=== PATIENT | male | born 1945 | race Caucasian/White ===

== ENCOUNTER 2023-10-15 10:19 | Outpatient (OUT) | payer MEDICARE, SELFPAY ==
--- NOTE | 2023-10-15 11:33 | PM.PRESUREVA ---
History of Present Illness History of Present Illness Chief complaint: ureteral stone Narrative: Patient presents for preadmission testing. Patient states he had a follow-up for kidney stones with Dr. Dc on October 09, and then three days later he had excruciating left flank pain and was treated in the emergency department and found to have a left ureteral stone. The patient states he still having flank pain but it is controlled with pain medication. He denies nausea, vomiting, fever, or any other complaints. Review of Systems ROS Narrative REVIEW OF SYSTEMS: Negative except as stated in HPI, ten or more systems reviewed. Constitutional: No fever , chills, weakness ENT: No sore throat or epistaxis Cardiovascular: No edema, chest pain, palpitations, or activity intolerance Respiratory: No shortness of breath, cough, or wheezing Musculoskeletal: No joint pain or swelling Gastrointestinal: No abdominal pain, constipation, diarrhea, or vomiting Genitourinary: No dysuria or hematuria Neurological: No numbness, tingling, weakness, or headache Psychiatric: No mood changes PFSH [facility] Medical History (Updated 10/15/23 @ 11:21 by Nirmala Robison NP) Peptic ulcer ?K27.9 - Peptic ulcer, site unspecified, unspecified as acute or chronic, without hemorrhage or perforation (ICD-10) 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 - Papillomavirus as the cause of diseases classified elsewhere (ICD-10) Skin cancer ?C44.90 - Unspecified malignant neoplasm of skin, unspecified (ICD-10) Essential tremor ?G25.0 - Essential tremor (ICD-10) Parkinson's disease not affecting current episode of care ?G20.A1 - Parkinson's disease without dyskinesia, without mention of fluctuations (ICD-10) 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 - Male erectile dysfunction, unspecified (ICD-10) History of nephrolithiasis ?Z87.442 - Personal history of urinary calculi (ICD-10) Hypogonadism Hyperlipidemia ?E78.5 - Hyperlipidemia, unspecified (ICD-10) Urinary tract infection ?N39.0 - Urinary tract infection, site not specified (ICD-10) Hematuria ?R31.9 - Hematuria, unspecified (ICD-10) Diverticular disease ?K57.90 - Diverticulosis of intestine, part unspecified, without perforation or abscess without bleeding (ICD-10) Benign prostatic hyperplasia ?N40.0 - Benign prostatic hyperplasia without lower urinary tract symptoms (ICD-10) Abdominal pain ?R10.9 - Unspecified abdominal pain (ICD-10) Ureteral stone ?N20.1 - Calculus of ureter (ICD-10) Surgical History (Updated 10/15/23 @ 11:21 by Nirmala Robison NP) History of throat surgery ?Z98.890 - Other specified postprocedural states (ICD-10) History of surgical removal of skin lesion ?Z98.890 - Other specified postprocedural states (ICD-10) ?Z87.2 - Personal history of diseases of the skin and subcutaneous tissue (ICD-10) History of nasal septoplasty ?Z98.890 - Other specified postprocedural states (ICD-10) History of colonoscopy ?Z98.890 - Other specified postprocedural states (ICD-10) History of esophagogastroduodenoscopy (EGD) ?Z98.890 - Other specified postprocedural states (ICD-10) History of arthroplasty of knee ?Z96.659 - Presence of unspecified artificial knee joint (ICD-10) History of arthroplasty of knee ?Z96.659 - Presence of unspecified artificial knee joint (ICD-10) History of tonsillectomy and adenoidectomy ?Z90.89 - Acquired absence of other organs (ICD-10) H/O wisdom tooth extraction ?K08.409 - Partial loss of teeth, unspecified cause, unspecified class (ICD-10) Family History (Updated 10/15/23 @ 11:21 by Nirmala Robison NP) Other Family history of cancer Family history of coronary artery disease Heart disease Meds Home Medications and Allergies Home Medications Medication Instructions Recorded Confirmed Type Zetia 20 mg PO DAILY 10/14/23 10/14/23 History aspirin 81 mg capsule 81 mg PO DAILY 10/14/23 10/14/23 History carbidopa 10 mg-levodopa 100 mg 1 tab PO DAILY 10/14/23 10/15/23 History tablet (Sinemet) eszopiclone 3 mg tablet (Lunesta) 3 mg PO QPM 10/14/23 10/15/23 History glucosamine sulfate 500 mg tablet 500 mg PO DAILY 10/14/23 10/14/23 History (Glucosamine) tamsulosin 0.4 mg capsule (Flomax) 0.4 mg PO BID 10/14/23 10/15/23 History alfuzosin 10 mg tablet,extended 10 mg PO DAILY 10/15/23 10/15/23 History release 24 hr atorvastatin 20 mg tablet 20 mg PO DAILY 10/15/23 10/15/23 History gabapentin 300 mg capsule 300 mg PO DAILY 10/15/23 10/15/23 History hydrocodone 5 mg-acetaminophen 325 1 tab PO [id number] PRN pain 10/15/23 10/15/23 History mg tablet propranolol 60 mg tablet 60 mg PO DAILY 10/15/23 10/15/23 History sildenafil 100 mg tablet 100 mg PO Q24H PRN sexual activity 10/15/23 10/15/23 History testosterone cypionate 200 mg/mL 200 mg IM [id number] 10/15/23 10/15/23 History intramuscular oil Allergies Allergy/AdvReac Type Severity Reaction Status Date / Time shellfish derived Allergy Vomiting Verified 10/15/23 11:09 SHELLFISH Allergy Intermediate Uncoded 10/14/23 16:51 Exam Narrative Exam Narrative: Constitutional: Awake, alert, comfortable, well-appearing, nontoxic, interactive, vital signs as charted Head: Normocephalic, atraumatic Neck: Supple, normal appearance, normal range of motion, no meningeal signs, no lymphadenopathy Respiratory: No respiratory distress, breath sounds clear Cardiovascular: Regular rate and rhythm, strong and regular heart tones Abdomen: Nontender, normal bowel sounds, soft, no CVA tenderness Musculoskeletal: Normal gait, no swelling or edema Skin: No rashes or induration, no lesions, only visible skin inspected Neuro: No neurological deficits, normal sensation Psychiatric: Oriented ?3, normal affect Assessment and Plan Assessment and Plan (1) Ureteral stone: Plan Cystoscopy, left retrograde, left ureteroscopy, holmium laser, possible left stent placement scheduled with Dr. Dc 10/17/2023.
[2023-10-15 12:58] LABS: INR 1.03; Partial Thromboplastin Time 33.3 sec (22.3-36.2); Prothrombin Time 10.9 sec (9.0-11.6)
== END 2023-10-15 10:20 | disposition home or self-care (01) ==
LOC: PST 10:23
PROVIDERS: Visit Provider Urology
DX: Z01.812 Encounter for preprocedural laboratory examination (principal); Z01.818 Encounter for other preprocedural examination; N20.1 Calculus of ureter
CPT/HCPCS: 85610; 85730; G0463

== ENCOUNTER 2023-10-17 08:05 | Day surgery (SDC) | payer MEDICARE, SELFPAY ==
[2023-10-15 11:29] VITALS: BP 123/78; PULSE 83; RESP 14; TEMP 36.3; O2SAT 94; BMI 22.7
[2023-10-17] VITALS (11 sets, daily range): BP systolic 109–151; BP diastolic 75–82; PULSE 61–89; RESP 12–20; TEMP 36–36.3; O2SAT 93–97; BMI 22.5
--- NOTE | 2023-10-17 | FL_ITS ---
[address] [address] Patient Name: DANIELE PERRY MRN: [id number] date: 1945 Sex: M Assigned Patient Location: [facility] Current Patient Location: Accession/Order Number: [id number] Exam Date: 10/17/2023 09:00 Report Date: 10/18/2023 06:45 At the request of: JULIO FORBES Procedure: FL fluoroscopy <1hr NON-READ EXAM: FL fluoroscopy <1hr NON-READ HISTORY: TECHNIQUE: FINDINGS: Please see Operative Report. Electronically authenticated by: RADIOLOGIST NO Date: 10/18/2023 06:45
--- OUTSIDE RECORDS SUMMARY | 2023-10-17 08:09 | XMS_ITS | CCD ---
Author Name Unknown Address [address] [facility] [address] [place] [id number] Organization [facility] Care Team Providers Care Signal Maintainer Helper Name Role Phone DEQUAN BIRGIT MARINA Primary Care UnavailCHASIDY Givens Attending Unavaila JULIO Marsh Admitting Unavailable ANDREI, JULIO Attending Unavailable MISC, Primary Care Unavailable FORBES, JULIO Consulting Unavailable JULIAN CISNEROS Consulting Unavailable FORBES, JULIO Admitting Unavailable FORBES, JULIO Attending Unavailable ANDREI, JULIO Consulting Unavailable NELA DOVE V Consulting Unavailable FRANCISCA MAXWELL Consulting Unavailable TED, NIURKA Consulting Unavailable FORBES, JULIO Admitting Unavailable FORBES, JULIO Attending Unavailable FORBES, JULIO Consulting Unavailable ELIZABETH PERALES Consulting Unavailable TED, NIURKA Consulting Unavailable TRINI ANAND Consulting Unavailable ANDREI, JULIO Admitting Unavailable ANDREI, JULIO Attending Unavailable Trino Crain Unavailable Nela Alegria Unavailable AMELIA BATISTA Primary Care Physician LUC Batistashana Primary Care Provider MD Bronson Imbrigido Attending Provider [phone] Asaad, Imad Unavailable Amelia Batista Primary Care Unavailable Asaad, Imad Attending Unavailable Asaad, Imad Admitting Unavailable Asaad, Imad Attending Unavailable Asaad, Imad Admitting Unavailable Amelia Batista Primary Care Unavailable Julio FORBES R Attending Unavailable Julio FORBES R Attending Unavailable Julio FORBES R Attending Unavailable Julio Forbes R Consulting Unavailable Jalen King Admitting Unavailab Jalen Cardenas Attending Unavailab Amelia Méndez Primary Care Unavailable Mohan Hogan Admitting Unavailable Mohan Hogan Attending Unavailable Eran [facility] Primary Care Unavailable ForbesJulio Attending Unavailable [facility] Primary Care Unavailable Julio Forbes Admitting Unavailable Mirian Zazueta Admitting Unavailable Hazard Waste HandlerMirian Attending Unavailable [facility], [facility] Primary Care Unavailable ForbesJulio Attending Unavailable [facility], [facility] Primary Care Unavailable Julio Forbes Admitting Unavailable Allergies Allergy Classification Reported Allergen(s) Allergy Type Date of Onset Reaction(s) Facility (5 sources) Shellfish; Translations: [shellfish] Drug allergy (disorder) Unknown (qualifier value) [facility] (3 sources) Shellfish; Translations: [shellfish] Drug allergy Unknown (qualifier value) [facility] (2 sources) clams Allergy to substance 0 Vomiting [facility] (2 sources) oysters Allergy to substance 0 Vomiting [facility] Medications Current Medications Medication Drug Class(es) Dates Sig (Normalized) Sig (Original) acetaminophen 325 mg / oxyCODONE hydrochloride 5 mg oral tablet (7 sources) Opioid Agonist oxyCODONE-Acetam i nophen 5-325 MG (Schedule II Drug) take 1 tablet by mouth every 4 hours if needed for moderate pain for up to 7 days Oral for 7 Active 24 hr alfuzosin hydrochloride 10 mg extended release oral tablet (4 sources) alpha-Adrenergic Eliane Start: 03-28-2022 take 1 tablet by mouth once daily alfuzosin 10 mg ER Tab 10 mg = 1 tab(s), Oral, Daily, # 90 tab(s), Refills(s) 3, Pharmacy: [facility] 188, cm, 03/28/22 11:06:00 EDT, Height/Length Dosing, 85, kg, 03/28/22 11:06:00 EDT, Weight Dosing Start Date: 03/28/22 Status: Ordered amoxicillin 500 mg oral capsule (7 sources) Penicillin-class Antibacterial take 4 capsules by mouth every hour Amoxicillin 500 MG take 4 capsules by mouth 1 hour prior to dental appointment Oral for 6 Active Aspirin (6 sources) Platelet Aggregation Inhibitor, Nonsteroidal Anti-inflammatory Drug Start: 02-02-2020 aspirin 81 mg, Refills(s) 0 Start Date: 02/02/20 Status: Ordered Start: 01-08-2018 take 1 tablet by marco antonio th once daily Aspirin (Aspir-81) 81 mg Tablet,Delayed Release (Dr/Ec) Active 81 MG PO Daily January 08, 2018 12:00am Lipitor (6 sources) HMG-CoA Reductase Inhibitor Start: 02-02-2020 Lipitor Oral, Daily, Refills(s) 0 Start Date: 02/02/20 Status: Ordered Start: 01-08-2018 take 20 mg by mouth once daily Atorvastatin Active 20 MG PO Daily January 08, 2018 12:00am carbidopa 10 mg / levodopa 100 mg oral tablet (4 sources) Aromatic Amino Acid Decarboxylation Inhibitor, Aromatic Amino Acid Start: 02-02-2020 take 1 tablet by mouth four times daily Sinemet 10 mg-100 mg Tab tab(s), Oral, QID, Refill(s) 0 Start Date: 02/02/20 Status: Ordered cephalexin 500 mg oral capsule (7 sources) Cephalosporin Antibacterial Cephalexin 500 MG TAKE 1 CAPSULE BY MOUTH THREE TIMES DAILY FOR 7 DAYS Oral for 7 Active cholecalciferol 0.125 mg oral tablet (4 sources) Vitamin D Start: 12-12-2021 take 250 ug by mouth once daily Cholecalciferol (Vitamin D3) Active 250 MCG PO Daily December 12, 2021 1:00am Start: 01-08-2018 End: 12-12-2021 take 1 capsule by mouth once daily Cholecalciferol (Vitamin D3) (Vitamin D3) 2,000 unit Capsule Discontinued 2000 UNIT PO Daily January 08, 2018 12:00am December 12, 2021 2:46pm dexamethasone 1 mg/ml / tobramycin 3 mg/ml ophthalmic suspension (7 sources) Aminoglycoside Antibacterial, Corticosteroid take 1 drop(s) into the eye(s) four times daily Tobramycin-Dexamethasone 0.3-0.1 % instill 1 drop into left eye four times a day Ophthalmic for 30 Active docusate sodium 100 mg oral capsule (3 sources) DOK 100 MG take 1 capsule by mouth twice a day if needed for 7 days Oral for 7 Active DOK 100 MG (4 sources) DOK 100 MG take 1 capsule by mouth twice a day if needed for 7 days Oral for 7 Active Dosoquin 5500-200 UNIT-MCG (7 sources) Dosoquin 5500-20 0 UNIT-MCG Oral for 90 Active dutasteride 0.5 mg oral capsule (1 source) 5-alpha Reductase Inhibitor Start: 04-17-2023 take 1 capsule by mouth once daily dutasteride 0.5 mg Cap 0.5 mg = 1 cap(s), Oral, Daily, # 30 cap(s), Refills(s) 11, Pharmacy: [facility] #[id number], 188, cm, 04/03/23 13:02:00 EDT, Height/Length Dosing, 85, kg, 04/03/23 13:02:00 EDT, Weight Dosing Start Date: 04/17/23 Status: Ordered eszopiclone 3 mg oral tablet (6 sources) Start: 01-08-2018 take 3 mg by mouth once daily at bedtime Lunesta 3 mg, Oral, Once a day (at bedtime), Refills(s) 0 Start Date: 02/02/20 Status: Ordered Zetia (8 sources) Dietary Cholesterol Absorption Inhibitor Start: 02-02-2020 take 20 mg by mouth once daily Zetia 20 mg, Oral, Daily, Refills(s) 0 Start Date: 02/02/20 Status: Ordered Start: 01-08-2018 End: 01-08-2018 take 1 tablet by mouth once daily Ezetimibe (Zetia) 10 mg Tablet Active 10 MG PO Daily January 08, 2018 12:00am Fish Oils (4 sources) Start: 02-02-2020 Fish Oil Oral, Refill(s) 0 Start Date: 02/02/20 Status: Ordered Neurontin (13 sources) Anti-epileptic Agent Start: 02-02-2020 Neurontin Oral, Daily Start Date: 02/02/20 Status: Ordered Start: 01-08-2018 End: 12-12-2021 take 300 mg by mouth twice daily Gabapentin Discontinued 300 MG PO Twice daily January 08, 2018 12:00am December 12, 2021 2:37pm take 1 capsule by [facility] three times daily Gabapentin 300 MG take 1 capsule by mouth three times a day Oral for 30 Active Hamf-Ulphj-Ky1-Gcj-Wjs-Easj- St (Glucosamine Chondroitin Plus) 280-833-82-54 mg Capsule (2 sources) Start: 01-08-2018 take 1 capsule by mouth once daily Xkto-Sbmau-We2-Gav-Dax-Jefa-St (Glucosamine Chondroitin Plus) 864-094-97-54 mg Capsule Active 1500 MG PO Daily January 08, 2018 12:00am glucosamine 500 mg oral tabl et (4 sources) Start: 02-02-2020 glucosamine 500 mg, Oral, Refills(s) 0 Start Date: 02/02/20 Status: Ordered ibuprofen 800 mg oral tablet (7 sources) Nons tero idal Anti -inf dario ator y Drug Ibuprofen 800 MG Ora l for 10 Active Ibuprofen 800 MG Oral for 10 Active ipratropium bromide 0.021 mg/actuat metered dose nasal spray (7 sources) Anticholinergic take 2 spray(s) nasal route twice daily Ipratropium [place] 0.03 % instill 2 sprays into each nostril twice a day Nasal for 30 Active mirtazapine 15 mg oral tablet (7 sources) Mirtazapine 15 M G Oral for 30 Active omeprazole 40 mg delayed release oral capsule (2 sources) Proton Pump Inhibitor Start: 023 take 1 capsule by mouth twice daily Omeprazole 40 MG 1 capsule 30 minutes before morning meal Orally twice a day for 30 days Patient to take medication for 12 weeks. Apr, Active phenazopyridine hydrochloride 200 mg oral tablet (2 sources) Start: 022 take 1 tablet by mouth twice daily Pyridium 200 mg Tab 200 mg = 1 tab(s), Oral, BID, # 6 tab(s), Refills(s) 0, [id number], 188, cm, 03/28/22 11:06:00 EDT, Height/Length Dosing, 85, kg, 03/28/22 11:06:00 EDT, Weight Dosing Start Date: 04/24/22 Status: Ordered Primidone (4 sources) Anti-epileptic Agent Start: primidone Oral, TID, Refills(s) 0 Start Date: 02/02/20 Status: Ordered Propranolol (6 sources) beta-Adrenergic Eliane Start: propranolol Start Date: 02/02/20 Status: Ordered Start: 01-08-2018 take 60 mg by mouth once daily Propranolol Active 60 MG PO Daily January 08, 2018 12:00am Requip (4 sources) Nonergot Dopamine Agonist Start: 02-02-2020 Requip Oral, TID, Refills(s) 0 Start Date: 02/02/20 Status: Ordered sildenafil 100 mg oral tablet (14 sources) Phosphodiesterase 5 Inhibitor Start: 06-27-2023 take 100 mg by mouth once daily Sildenafil Active 100 MG PO Daily June 27, 2023 12:00am Start: 02-02-2020 Viagra Oral, D aily, Refills(s) 0 Start Date: 02/02/20 Status: Ordered Start: 11-25-2019 End: 12-12-2021 Sildenafil (Pulm.Hypertensio n) Discontinued 1 TAB PO As Directed November 25, 2019 1:00am December 12, 2021 2:38pm tamsulosin hydrochloride 0.4 mg oral capsule (3 sources) alpha-Adrenergic Eliane Start: 10-09-2023 take 1 mg by mouth twice daily Flomax 0.4 mg Cap mg cap(s), Oral, BID, Refills(s) 0 Start Date: 10/09/23 Status: Ordered Start: 01-08-2018 take 0.4 mg by mouth once cee y Tamsulosin Active 0.4 MG PO Daily January 08, 2018 12:00am testosterone cypionate 200 m g/ml injectable solution (7 sources) Androgen Testosterone Cyp ionate 200 MG/ML (Schedule III Drug) Intramuscular for 28 Active Testosterone Cyp ionate 200 MG/ML (Schedule III Drug) Intramuscular for 28 Active ubiquinol 100 mg oral capsule (2 sources) Start: 01-08-2018 take 100 mg by mouth once daily Coq10 (Ubiquinol) Active 100 MG PO Daily January 08, 2018 12:00am Vit A,C And M-Uikopd-Siszupti (Vision Formula (With Lutein)) 1,000 unit-200 mg-60 unit-2 mg Tablet (2 sources) Start: 01-08-2018 take 1 tablet by mouth once daily Vit A,C And Q-Xdmaav-Ioargwzm (Vision Formula (With Lutein)) 1,000 unit-200 mg-60 unit-2 mg Tablet Active 1 TAB PO Daily January 08, 2018 12:00am Completed/Discontinued Medications Medication Drug Class(es) Dates Sig (Normalized) Sig (Original) Multivitamin-Minera ls-Lutein (Multivitamin 50 Plus) Tablet (2 sources) Start: 01-08-2018 End: 12-12-2021 Multivitamin-Mine rals-Lutein (Multivitamin 50 Plus) Tablet Discontinued 1 TAB PO Daily January 08, 2018 12:00am December 12, 2021 2:38pm [place] 2-Mrz-Bda-Fish Oil (Fish Oil) 1,000 mg (120 mg-180 mg) Capsule (2 sources) Start: 01-08-2018 End: 12-12-2021 take 1 tablet by mouth once daily [place] 6-Tsj-Dpb-Fish Oil (Fish Oil) 1,000 mg (120 mg-180 mg) Capsule Discontinued 1 TAB PO Daily January 08, 2018 12:00am December 12, 2021 2:38pm prednisoLONE acetate 10 mg/ml ophthalmic suspension (7 sources) Corticosteroid take 1 drop(s) into the eye(s) four times daily prednisoLONE Acetate 1 % instill 1 drop into left eye four times a day Ophthalmic for 65 Not-Taking tadalafil 5 mg oral tablet (2 sources) Phosphodiesterase 5 Inhibitor Start: 01-08-2018 End: 11-25-2019 take 5 mg by mouth once daily Tadalafil Discontinued 5 MG PO Daily January 08, 2018 12:00am November 25, 2019 2:05pm triamcinolone acetonide 40 mg/ml injectable suspension (11 sources) Corticosteroid Start: 08-08-2022 Kenalog-40 Nov, 40 mg Start: 11-06-2021 Kenalog -40 mg Oct, 40 mg Problems Problem Classification Problem Date Documented Date Episodic/Chronic Abdominal pain (5 sources) Unspecified abdominal pain; Translations: [Abdominal pain] Onset: 02-12-2003-28-2022 Episodic Calculus of urinary tract (14 sources) Calculus of ureter; Translations: [Calculus of kidney] Onset: 02-03-2002-02-2020 Episodic Disorders of lipid metabolism (5 sources) Hyperlipidemia, unspecified; Translations: [Hyperlipidemia] Onset: 04-14-2002-02-2020 Chronic Disorders of lipid metabolism (1 source) Pure hypercholesterolemia, unspecified; Translations: [PURE HYPERCHOLESTEROLEMIA UNSPEC] Onset: 04-14-20 Diverticulosis and diverticulitis (5 sources) Diverticulosis of intestine, part unspecified, without perforation or abscess without bleeding; Translations: [Diverticular disease] Onset: 03-16-2002-02-2020 Chronic Esophageal disorders (9 sources) Stricture of esophagus; Translations: [Esophageal obstruction] 03-09-2022 Chronic Esophageal disorders (7 sources) Esophagitis; Translations: [Esophagitis, unspecified] Episodic Genitourinary symptoms and ill-defined conditions (12 sources) Nocturia; Translations: [Hematuria, unspecified] Onset: 04-14-20 Episodic Hyperplasia of prostate (9 sources) Benign prostatic hyperplasia with lower urinary tract symptoms; Translations: [Benign prostatic hyperplasia without lower urinary tract symptoms] Onset: 03-16-2002-02-2020 Chronic Mood disorders (1 source) Major depressive disorder, single episode, mild; Translations: [Major depressive disorder, single episode, mild] Onset: 01-27-20 Chronic Osteoarthritis (10 sources) Arthritis of left wrist; Translations: [Primary osteoarthritis, left wrist] Onset: 11-06-19 Resolved : 11-06-19 Chronic Other aftercare (1 source) retirement (current) use of anticoagulants; Translations: [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 USE ANTICOAGULANTS] Onset: 04-14-20 Episodic Other aftercare (1 source) Other watermaster (current) drug therapy; Translations: [OTH [facility] CURRENT DRUG THERAPY] Onset: 02-12-20 Episodic Other aftercare (1 source) 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 terminal operator (current) use of aspirin; Translations: [[facility] CURRENT USE OF ASPIRIN] Onset: 03-16-20 Episodic Other diseases of bladder and urethra (1 source) Other specified disorders of bladder; Translations: [OTHER SPECIFIED DISORDERS BLADDER] Onset: 02-12-20 Chronic Other diseases of kidney and ureters (1 source) Cyst of kidney, acquired; Translations: [CYST OF KIDNEY ACQUIRED] Onset: 02-12-20 Episodic Other diseases of kidney and ureters (1 source) Crossing vessel and stricture of ureter without hydronephrosis; Translations: [CROSSING VES STRICT URETER W/O HN] Onset: 02-12-20 Episodic Other endocrine disorders (1 source) Testicular hypofunction; Translations: [TESTICULAR HYPOFUNCTION] Onset: 04-14-20 Chronic Other endocrine disorders (4 sources) Male hypogonadism 02-02-2020 Chronic Other endocrine disorders (2 sources) Testicular hypofunction; Translations: [Testicular hypofunction] Onset: 04-03-20 23 Chronic Other gastrointestinal disorders (15 sources) Dysphagia; Translations: [Dysphagia, unspecified] 09-01-2018 Episodic Other gastrointestinal disorders (2 sources) Dysphagia, unspecified; Translations: [Dysphagia] Onset: 11-07-19 Resolved : 11-07-19 Episodic Other male genital disorders (3 sources) Male erectile dysfunction, unspecified; Translations: [Erectile dysfunction] Onset: 04-14-20 Chronic Other male genital disorders (4 sources) 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 Other non-traumatic joint disorders (3 sources) Pain in left wrist Onset: 11-06-19 Resolved : 11-06-19 Episodic Other screening for suspected conditions (not mental disorders or infectious disease) (2 sources) Patient encounter status; Translations: [Encounter for screening for malignant neoplasm of colon] 01-08-2018 Episodic Parkinson`s disease (5 sources) Parkinson's disease; Translations: [Parkinson's disease] Onset: 04-14-2002-02-2020 Chronic Screening and history of mental health and substance abuse codes (1 source) Personal history of nicotine dependence; Translations: [PERSONAL HISTORY OF NICOTINE DEPEND] Onset: 04-14-20 Episodic Suicide and intentional self-inflicted injury (1 source) Suicidal ideations; Translations: [Suicidal ideations] Onset: 01-27-20 Episodic Results Test Name Value Interpretation Reference Range Facility Electronic Messagingon 10-13 Electronic Messaging --- --- --- --- --- --- --- --- --- From: Direct[facility] ([id number]), Directtest To: DANIELE PERRY Sent: 10/13/23 05:11:08 AM EST Subject: Discharge Summary Ready to View A summary regarding your recent visit is available in the Documents section of your Health Record. Normal [facility] .Auto Diff 1on 10-12-2023 Auto Dupage % 7 % Normal 12 [facility] Comment on above: Performed By: #### 2 [id number], [id number], [id number], [id number], [id number], [id number] ####[facility] (DEFAULT)[address] [place] [address] Baso Abs# 0.1 x10 Normal 0.0-0.2 [facility] Comment on above: Performed By: #### 2 [id number], [id number], [id number], [id number], [id number], [id number] ####[facility] (DEFAULT)[address] [place] [address] Basophils/100 WBC (Bld) 0.9 % Normal 0.2-2.0 [facility] Comment on above: Performed By: #### 2 [id number], [id number], 7880541, [id number], [id number], [id number] ####[facility] (DEFAULT)[address] [place] [address] Eos Abs# 0.2 x10 Normal 0.0-0.4 [facility] Comment on above: Performed By: #### 2 [id number], [id number], 5017140, [id number], [id number], [id number] ####[facility] (DEFAULT)[address] [place] [address] Eosinophils/100 WBC (Bld) 1.9 % Normal 0.9-4.0 [facility] Comment on above: Performed By: #### 2 [id number], [id number], 7403040, [id number], [id number], [id number] ####[facility] (DEFAULT)[address] [place] [address] Lymph Abs# 2.2 x10 Normal 1.3-2.9 [facility] Comment on above: Performed By: #### 2 [id number], 40838545, 6316214, [id number], [id number], [id number] ####[facility] (DEFAULT)[address] [place] [address] Lymphocytes/100 WBC (Bld) 20 % Normal 14-48 [facility] Comment on above: Performed By: #### 2 [id number], [id number], 8143908, [id number], [id number], [id number] ####[facility] (DEFAULT)[address] [place] [address] Dupage Abs# 0.8 x10 Normal 0.0-0.8 [facility] Comment on above: Performed By: #### 2 [id number], 63852961, 9279364, [id number], [id number], [id number] ####[facility] (DEFAULT)[address] [place] [address] Neut Abs# 7.7 x10 Normal 1.5-9.2 [facility] Comment on above: Performed By: #### 2 [id number], 73378081, 8679934, [id number], [id number], [id number] ####[facility] (DEFAULT)[address] [place] [address] Neutrophils/100 WBC (Bld) 70 % Normal 44-88 [facility] Comment on above: Performed By: #### 2 [id number], 97377330, 3203747, [id number], [id number], [id number] ####[facility] (DEFAULT)[address] [place] [address] CBC w/ Auto Diffon 4 Erythrocyte distribution width (RBC) [Ratio] 13.4 % Normal 11.5-15.0 [facility] Comment on above: Performed By: #### 2 [id number], 86720152, 9735683, 6861626563, [id number], [id number] ####[facility] (DEFAULT)[address] [place] [address] Hematocrit (Bld) [Volume fraction] 53.5 % High 34.8-51.9 [facility] Comment on above: Performed By: #### 2 [id number], 44554003, 0150319, 0385403654, 1054363811, [id number] ####[facility] (DEFAULT)[address] [place] [address] Hemoglobin (Bld) [Mass/Vol] 17.4 g/dL Normal 11.8-17.7 [facility] Comment on above: Performed By: #### 2 [id number], 70011378, 2352728, 8240293733, [id number], [id number] ####[facility] (DEFAULT)[address] [place] [address] Man Diff? Auto Invalid Interpretation Code [facility] Comment on above: Performed By: #### 2 [id number], 25008521, 7814934, 5361425325, [id number], [id number] ####[facility] (DEFAULT)[address] [place] [address]22 MCH (RBC) [Entitic mass] 30 pg Normal 24-34 [facility] Comment on above: Performed By: #### 2 [id number], 14380257, 9219510, 9018642870, [id number], [id number] ####[facility] (DEFAULT)[address] [place] [address]30 MCHC (RBC) [Mass/Vol] 32 g/dL Normal 26-37 [facility] Comment on above: Performed By: #### 2 [id number], 55453389, 3658794, 3128679055, 8602978393, [id number] ####[facility] (DEFAULT)[address] [place] [address] 07148 MCV (RBC) [Entitic vol] 91 fL Normal 81-100 [facility] Comment on above: Performed By: #### 2 [id number], 26174567, 3689994, 4269078917, [id number], [id number] ####[facility] (DEFAULT)[address] [place] [address] Platelet 233 x10 Normal 138-427 [facility] Comment on above: Performed By: #### 2 [id number], 87855779, 3713365, 5012115633, [id number], [id number] ####[facility] (DEFAULT)[address] [place] [address] 31683 Platelet mean volume (Bld) [Entitic vol] 9.3 fL Normal 6.3-10.2 [facility] Comment on above: Performed By: #### 2 [id number], 20553962, 1343676, 1964329062, 4212013085, [id number] ####[facility] (DEFAULT)[address] [place] [address] RBC 5.88 x10 High 3.70-5.30 [facility] Comment on above: Performed By: #### 2 [id number], 56393310, 3372531, 4050940175, 4606255523, [id number] ####[facility] (DEFAULT)[address] [place] [address] WBC 11.0 x10 High 3.5-10.5 [facility] Comment on above: Performed By: #### 2 [id number], 10470073, 3246442, 3694614597, [id number], [id number] ####[facility] (DEFAULT)[address] [place] [address] CMP Standardon 10-12-2023 eGFR Non AA 58 mL/min/1.73m2 Invalid Interpretation Code [facility] Comment on above: Performed By: #### 2 [id number], 96927219, 0717568, [id number], [id number], [id number] ####[facility] (DEFAULT)[address] [place] [address] eGFR AA >60 Invalid Interpretation Code [facility] Comment on above: Performed By: #### 2 [id number], 58492741, 0048320, 7975447217, [id number], [id number] ####[facility] (DEFAULT)[address] [place] [address] 93163 Albumin [Mass/Vol] 4.0 g/dL Normal 3.5-5.0 [facility] Comment on above: Performed By: #### 2 [id number], 65427335, 8556503, [id number], [id number], [id number] ####[facility] (DEFAULT)[address] [place] [address] Albumin/Globulin [Mass ratio] 1.3 {ratio} Low 1.4-2.6 [facility] Comment on above: Performed By: #### 2 [id number], 07788466, 7742305, 3021253450, [id number], [id number] ####[facility] (DEFAULT)[address] [place] [address] 01258 Alk Phos 67 IU/L Normal 32-91 [facility] Comment on above: Performed By: #### 2 [id number], 74299049, 4984847, 8000211870, [id number], [id number] ####[facility] (DEFAULT)[address] [place] [address] ALT [Catalytic activity/Vol] 24.0 U/L Normal 17.0-63.0 [facility] Comment on above: Performed By: #### 2 [id number], [id number], 8273781, [id number], [id number], [id number] ####[facility] (DEFAULT)[address] [place] [address] 27497 AST [Catalytic activity/Vol] 26 U/L Normal 15-41 [facility] Comment on above: Performed By: #### 2 [id number], [id number], [id number], [id number], [id number], [id number] ####[facility] (DEFAULT)[address] [place] [address] 92481 Creatinine [Mass/Vol] 1.21 mg/dL Normal 0.90-1.30 [facility] Comment on above: Performed By: #### 2 [id number], [id number], [id number], [id number], [id number], [id number] ####[facility] (DEFAULT)[address] [place] [address] Globulin (S) [Mass/Vol] 3.0 g/dL Normal 1.5-4.3 [facility] Comment on above: Performed By: #### 2 [id number], [id number], 3065575, [id number], [id number], [id number] ####[facility] (DEFAULT)[address] [place] [address] Osmolality 282 mOsm/L Invalid Interpretation Code [facility] Comment on above: Performed By: #### 2 [id number], [id number], 5155824, [id number], [id number], [id number] ####[facility] (DEFAULT)[address] [place] [address] 14949 Protein [Mass/Vol] 7.0 g/dL Normal 6.5-8.1 [facility] Comment on above: Performed By: #### 2 [id number], 13493961, 2627569, 2755378435, [id number], [id number] ####[facility] (DEFAULT)[address] [place] [address]10 Urea nitrogen [Mass/Vol] 18 mg/dL Normal 8-26 [facility] Comment on above: Performed By: #### 2 [id number], 83470233, 8787322, [id number], [id number], [id number] ####[facility] (DEFAULT)[address] [place] [address] Urea nitrogen/Creatinine [Mass ratio] 14.8 mg/mg Normal 4.6-16.2 [facility] Comment on above: Performed By: #### 2 [id number], 81405403, 8069379, [id number], [id number], [id number] ####[facility] (DEFAULT)[address] [place] [address] 28636 Anion gap [Moles/Vol] 15.1 mmol/L Normal 5.0-19.0 [facility] Comment on above: Performed By: #### 2 [id number], 59145976, 3871869, [id number], [id number], [id number] ####[facility] (DEFAULT)[address] [place] [address] 06170 Bili Total 1.2 mg/dL Normal 0.3-1.2 [facility] Comment on above: Performed By: #### 2 [id number], 71052297, 5384898, [id number], [id number], [id number] ####[facility] (DEFAULT)[address] [place]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 (10/09/2023) Bilirubin Urine Dipstick - Negative Blood Urine Dipstick - Negative Glucose Urine Dipstick - Negative Ketones Urine Dipstick - Negative Leukocytes Urine Dipstick - Negative Nitrite Urine Dipstick - Negative Protein Urine Dipstick - Negative Specific [place] Urine Dipstick - >=1.030 Urine Appearance Urine Dipstick - Clear Urine Color Urine Dipstick - Yellow Urobilinogen Urine Dipstick - Normal 0.2-1 EU/dl pH Urine Dipstick - 5.5 Allergies shellfish (Unknown) Problems Ongoing - Any problem that you are currently receiving treatment for. Abdominal pain BPH with urinary obstruction Diverticular disease Hematuria History of UTI Hyperlipidemia Hypogonadism male Nephrolithiasis Organic impotence Parkinsons Patient Survey You may receive a survey via text or e-mail asking about your office visit. Please share your experience with us by completing your survey. We appreciate your feedback and thank you for choosing us for your care. Education Materials Lithotripsy, Care After This sheet gives you information about how to care for yourself after your procedure. Your health care provider may also give you more specific instructions. If you have problems or questions, contact your health care provider. What can I expect after the procedure? After the procedure, it is common to have: ? Some blood in your urine. This should only last for a few days. ? Soreness in your back, sides, or upper abdomen for a few days. ? Blotches or bruises on the area where the shock wave entered the skin. ? Pain, discomfort, or nausea when pieces (fragments) of the kidney stone move through the tube that carries urine from the kidney to the bladder (ureter). Stone fragments may pass soon after the procedure, but they may continue to pass for up to 4?8 weeks. ? If you have severe pain or nausea, contact your health care provider. This may be caused by a large stone that was not broken up, and this may mean that you need more treatment. ? Some pain or discomfort during urination. (more content not included)... Normal [facility] Patient Educationon 10-09-19 Patient Education Nephrology Lithotripsy, Care After This sheet gives you information about how to care for yourself after your procedure. Your health care provider may also give you more specific instructions. If you have problems or questions, contact your health care provider. What can I expect after the procedure? After the procedure, it is common to have: ? Some blood in your urine. This should only last for a few days. ? Soreness in your back, sides, or upper abdomen for a few days. ? Blotches or bruises on the area where the shock wave entered the skin. ? Pain, discomfort, or nausea when pieces (fragments) of the kidney stone move through the tube that carries urine from the kidney to the bladder (ureter). Stone fragments may pass soon after the procedure, but they may continue to pass for up to 4?8 weeks. ? If you have severe pain or nausea, contact your health care provider. This may be caused by a large stone that was not broken up, and this may mean that you need more treatment. ? Some pain or discomfort during urination. ? Some pain or discomfort in the lower abdomen or (in men) at the base of the penis. Follow these instructions at home: Medicines ? Take glaz-qqs-fupcaum and prescription medicines only as told by your health care provider. ? If you were prescribed an antibiotic medicine, take it as told by your health care provider. Do not stop taking the antibiotic even if you start to feel better. ? Ask your health care provider if the medicine prescribed to you requires you to avoid driving or using machinery. Eating and drinking ? Drink enough fluid to keep your urine pale yellow. This helps any remaining pieces of the stone to pass. It can also help prevent new stones from forming. ? Eat plenty of fresh fruits and vegetables. ? Follow instructions from your health care provider about eating or drinking restrictions. You may be instructed to: ? Reduce how much salt (sodium) you eat or drink. Check ingredients and nutrition facts on packaged foods and beverages to see how much sodium they contain. ? Reduce how much meat you eat. ? Eat the recommended amount of calcium for your age and gender. Ask your health care provider how much calcium you should have. General instructions ? Get plenty of rest. ? Return to your normal activities as told by your health care provider. Ask your health care provider what activities are safe for you. Most people can resume normal activities 1?2 days after the procedure. ? If you were given a sedative during the procedure, it can affect you for several hours. Do not drive or operate machinery until your health care provider says that it is safe. ? Your health care provider may direct you to lie in a certain position (postural drainage) and tap firmly (percuss) over your kidney area to help stone fragments pass. Follow instructions as told by your health care provider. ? If directed, strain all urine through the strainer that was provided by your health care provider. ? Keep all fragments for your health care provider to see. Any stones that are found may be sent to a medical lab for examination. The stone may be as small as a grain of salt. ? Keep all follow-up visits as told by your health care provider. This is important. Contact a health care provider if: ? You have a fever or chills. ? You have nausea that is severe or does not go away. ? You have any of these urinary symptoms: ? Blood in your urine for longer than your health care provider told you to expect. ? Urine that smells bad or unusual. ? Feeling a strong urge to urinate after emptying your bladder. ? Pain or burning with urination that does not go away. ? Urinating more often than usual and this does not go away. ? You have a stent and it comes out. Get help right away if: ? You have severe pain in your back, sides, or upper abdomen. ? You have any of these urinary symptoms: ? Severe pain while urinating. ? More blood in your urine or having blood in your urine when you did not before. ? Passing blood clots in your urine. ? Passing only a small amount of urine or being unable to pass any urine at all. ? You have severe nausea that leads to persistent vomiting. ? You faint. Summary ? After this procedure, it is common to have some pain, discomfort, or nausea when pieces (fragments) of the kidney stone move through the tube that carries urine from the kidney to the bladder (ureter). If this pain or nausea is severe, however, you should contact your health care provider. ? Return to your normal activities as told by your health care provider. Ask your health care provider what activities are safe for you. ? Drink enough fluid to keep your urine pale yellow. This helps any remaining pieces of the stone to pass, and it can help prevent new stones from forming. ? If directed, strain your urine and keep all fragments for your health care p (more content not included)... Normal [facility] Urology Office/Clinic Noteon 10-09-2023 Urology Office/Clinic Note Chief Complaint 6 month follow up w/ [facility] HPI Staff 6 month follow up w/[facility]. Previous DX: BPH hematuria, hypogonadism male, nephrolithiasis, organic impotence, HX of UTI. PVR today 95ml. Dysuria: denies pain and burning Incomplete bladder emptying: it takes a while to empty bladder Hematuria: denies visible blood Frequency: 6x a day Urgency: denies Nocturia: 1-2x a night Stream: denies hesitancy Leaking: denies Post void dripping: denies Wearing pads/ Depends: denies Urge incontinence: denies Stress incontinence: denies Incontinence without Sensory Awareness: denies Abdominal pain: denies Flank pain: a little bit of Rt sided pain Sexual complaints: _ History of Present Illness Tests reviewed: reviewed UA, K[facility] I have reviewed the previous health record information and history for this patient from Dr. Forbes. I have reviewed and verified the staff HPI to be accurate for this encounter. There have been no associated fever, chills, flank pain, or blood in the urine. Denies any urinary infections since last encounter. Review of Systems PHQ Score Initial Depression Screen Score: 0 SCORE ROS - Provider Constitutional: denies weight loss, denies hot flashes. Eyes: denies eye problems. Gastrointestinal: denies nausea, denies vomiting. Cardiovascular: denies chest pain or angina. Integumentary: no dryness Musculoskeletal: denies musculoskeletal symptoms. ENMT: denies otolaryngeal symptoms. Respiratory: no shortness of breath. Heme/Lymph: denies easy bleeding tendency, denies easy bruising tendency. Psychiatric: no confusion, no anxiety. Genitourinary: See HPI. Physical Exam Vitals & Measurements HR: 74(Peripheral) BP: 132/65 General Appearance: alert, no distress, well nourished, well developed male. Genitourinary: normal scrotum, normal testes, normal urethra, normal epididymis, normal vas deferens/spermatic cord. Flank Pain: none. Bladder: nonpalpable. Assessment/Plan 1. Nephrolithiasis (N20.0: Calculus of kidney) Tomy ER on 04/02/[address] AP w con 04/02/22 - Small 2 mm R renal stone. KUB 04/25/22 - Stable RSP 4 mm stone. No L sided stones. KUB 03/26/23 - 3 mm stone RUP. 3 mm stone LLP. KUB 10/02/23 Tomy - 4 mm stone RUP. 4-5 mm stone LLP, unchanged. No ureteral stones. Reviewed KUB with pt. Discussed surgical intervention options including ESWL if visible on x-ray (less invasive, lower stone free rate) and ureteroscopy/laser litho with possible stent placement (more invasive, higher stone free rate). Risks and benefits of each discussed. -Will schedule L ESWL. The procedure risks, benefits, details and treatment alternatives have been discussed with the patient. These include blood in the urine, infection, bleeding around the kidney, kidney bruising, inability to break up the stone, need for blood transfusion, blockage from stone fragments, and need for additional procedures, among others. Full informed consent has been obtained. Will order General anesthesia. 2. 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 PVR today 95 ml. Pt was to start Dutasteride 0.5 mg qd at prior OV. Our records show that it was never filled at the pharmacy. Taking Flomax 0.4 mg bid. Cont Flomax wo changes. IPSS 13-14 (8). Feels his urination has worsened, which is reflected in his IPSS score, since prior OV. -Start Dutasteride 0.5 mg qd. SEs discussed. Rx sent to [facility]. 3. Hypogonadism male (E29.1: Testicular hypofunction) Testosterone injections from PCP q2wk. [1] 4. 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 [2] Educated pt on proper use, not to exceed 100 mg in 24 hours. Discussed other options including Cialis and ICI. Follow-up With When Contact Information Julio FORBES MD, URL [facility] [address], [place] [address]- Additional Instructions: schedule L ESWL Patient Education Lithotripsy, Care After Lithotripsy I, Hansa Espinoza, personally scribed for Dr. Forbes on 10/09/2023 14:27:47. . Documentation recorded by the scribe, Hansa Espinoza, accurately reflects the services(s) I performed and decisions made by me. Authenticated by Dr. Forbes on 10/09/2023 14:30:19. Problem List/Past Medical History Ongoing Abdominal pain BPH with urinary obstruction Diverticular disease Hematuria History of UTI Hyperlipidemia Hypogonadism male Nephrolithiasis Organic impotence Parkinsons Historical No qualifying data Procedure/Surgical History Extraction of wisdom tooth, Nasal sinus, Ts and As - Tonsillectomy and adenoidectomy. Medications alfuzosin 10 mg ER Tab, 10 mg= 1 tab(s), Oral, Daily, 3 refills, Not taking aspirin, 81 mg dutasteride 0.5 mg Cap, 0.5 mg= 1 cap(s), Oral, Daily, 11 refills, Not taking Fish Oil, Oral (more content not included)... Normal [facility] Comment on above: Result Comment: Elec tronically Signed By: Julio FORBES MD\.br\Date and Time Signed: 10/09/23 14:30 EST\.br\Electronically Co-Signed By: Hansa Espinoza\.br\Date and Time Co-Signed: 10/09/23 14:28 EST Coding Summaryon 10-08-2023 Coding Summary HTMLBase 64 VvhnwacpHAb8nNz+PGhlYWQ+ II3CVSSrE24wbLNozB3fQ7ST TElOSywgQVBQTElOSyIgbmFt GG0xbATbZKHs IC8+ON2wIXUyRrjgtIYzn8K0 xQB1M71luc3tUMauiZW8XVCw YxAmjkrnz1bjqXm1ZLqjOeqg OyBt XSOvbA87AZC8qK96Jy35qDRx rVHjc6yosXo0ThZgYRCvHIT3 dOaaRAxrx9BqFDKmI62ffUNk c2U6 ODKfgAbtlZCaGgAduZH3vA3r GTqshogds2tjsvfaPum1xi41 tCIvu5Y9nIK0O8PesjR6BMUz bGQg AgxxoFZRkC1vfyzry7oijter PpTtCVTpLQm4UTo3ZOWlpXoy JzUsCX89RTA4EGEdytKtR3Ti LWFs uAajSbV6l3C5Nl8PE3ORAflx P4YZRCGNPBsfiGV+IE55ow05 C9NeCrhcBaq8VQJyIYW8rFN5 aD0n UPSbREdib2P5qTX1O8WbttKc lt0ax2beQTXtHOhwM45urQTd j6J4XHTovBL9WZPbnHpcQqXc aG93 Oyc+TOYiwLqbv8NdPiuwo6yj a4euqKi5AhuuJLTepdZxiLxw TRB7v9MkKq5tBIKavVP5uVH4 aD0i FiYtXxA9CFikY744JuQqeTSu BkedZ79uU4KleAY+PHRyPjx0 TNJdpMkgRP2rB4MdCGVikvov bGVm dCtkYN4wYTFmpzwpZWBlnZ9q DYAxV9n2ByXxZqR6MAlsN7Nf NDOahbazAc25jS2uAdCgCjF1 MGlu K2OcyfT0JWIzgHAiWPfmMXI3 Z61bz2Q4HNEaMDMeQQN5lBQ0 xS0ahDrjtedphJDkkNpetjGq dGlj CYxrINpdU806QXMbkZzuIhQi ZGluZyBEYXRlOiAgMDEvMDIv MjAyNDwvdGQ+TGLuVTV2nKay PSAn xZPbZRdwVi0xuEcdjNvfIF0c ROIfgmadDYWpfE4eSZTrzBKc lFweDD7hBQLanffhq486CiYl MHB0 QWLgbREzO1TncN9gPzPrRBAv YLBzZ9HxcQVbCAhgO214TGgw DsQ2YKKqbcBdW1HuGMNqoTie OiB0 o9V3Kv7Xi4TvzbqsQ1YqsIMn WqGfRwopYGj0P1KlJbrxdBP+ GJ32LOJsOF97IAg0ZIY7pTkd PSdi MDBkK0DtyI9sIwOzWWKtFAVa Oyc+PHRhYmxlIHdpZHRoPScx AJJoWiLmwEwyGX3dPm9dRBVp LWNv eYpgdCQvHlWqv2lxRNMtLCds QB6joIygE6XacCL7RWEci3u9 Nt43Y87nS8LtvWA+PGNvbCB3 aWR0 lS4sBjOrKjD2ELriT444BwWt rPWnOgdot9xuh4jfyCy0FmQ3 QTJltwVcfXesKUA4t6LsRm41 Y29s IHdpZHRoPSIxNSUiIHZhbGln xf7sbL3sHs1+UDVmnKB6wWR3 cU9pSbWbSpP8ANetE618QmVs cCIv Nvtwl3bnu5hjzYf8YrSkBGOg zaCxoXvpLVU4x4PrDb58D5Vs pIjso0ZpGxy2ij57dCJqy3L2 bGU9 E4PvKMKkbyfgrGDkrQdzUJ6i YFBptzhuGGYfaK3wVCIzF1r7 RxEjTfN6ZFkmN6HlguB7ZHMg bGQg EOKjzCTLzE7pdcycr0urbwqt PyYkLNQhTPn3BVm6UEDnhDca LeAlQKX7EqU6SEK4aWWiaE7b bGln udygkQ1wEqr+PJK6pRRhqPFU QR8vDylqtZC+YZGtDEM6qRqz QKidQSJioF2eWCUgJ4q1MqMd LjA1 CWtiR0ClknS3ICLhaRIbNUKx yDELaM0oqpilp6zrrnmgIoWu DYQzRIj4KKr1LMKnpQubVgBb ZWZ0 BqR5CMK5iTKlwU5ltKzmfljv eS4rBop+NpnyyLptEHX2RXm5 L5EcFik0FKWjkXxvOD5doHCg ZGlu Gs6khCvkoTlqUW2mCXZgwkxp q899IvOsg7wvSSXxzTOyCGxm LDT2Q93wf4W0XSBzIXIgNAZ3 dGV4 wC4ktXtsqkpyoKYzcPerspCk fKxrBTqxRPvqD676XOUruNih PjJiLPi8D4MqVel9EFHbrGaw ZT0n nCNkSHldBz6inJdxaJrrKN6n YSUpvrazy003EkBkr5lwAEOx uQCdEOzpZIF3F06oo2F3TYOy MDAw KHA4aGP4dF4fvHbcsaeesSHs xDzxlaQdfKmlRHsxGFldR262 VFWehQkaQjWjsFh3W0ZsCzc9 ZCBz pKseJT3xpZUxNHirTp1fuIox wQdbIT2hUBSixyovu807MqMn b7bmALAvkHYuFFhkCZO3R93q b3I6 IOStFBXtOKY0qWA8nB4tmMzu bjogbGVmdDsgdmVydGljYWwt IJsqR373GWSrzHhoWrXnwWam bnQg FCvqBSk4L2EnTlffeIT+PC90 NRUaZS15bCOfuTJyo6jwuGh9 MmYyULZnDTD8rEohJBgpx9Eh ZXIt C14yaHYlw7P5HCSkgVsjkSCu WmRldTI3iP4lPDhsgawfo8pe atqlLscda9jtux37tG59Y47e IHdp KEEmVHTgTSLqLHYekRlewp6n yC4kQn5+UKUkxUB6vSW1hQ6n LHWpVuM9DGihA931EjIydHUo Pjxj z8xwp0zyiZh0AmU5ETGrcuCb hIazWOH7j8BpVt41E80dFFoq VLNsWOPsBDDdGRTbyCwskm9t dG9w Ii8+WJXgtHY0iDO4jJ9wJnWz WtK3FXzkS910UeSjbMPcDkoj R12eK6OziIF+AJAeBlq0TBTk dHls IC2boEWeKIfzGz4cXED7JzYj QcFqWBbjT6RrAXUrelkdzysm pOA8GNDvRAMytI79Jm1ioTqz MTBw yFMHaF8ydokha1ngqikjLhIi VAVlEJc1QUt8XZNbjNytEfJt UFM4UhV5WXH3hAWusC0oxWgs bjog pU0aR7GxEZXmgjucJk00lU0m GuClMzP6AIxoFer+T2cAD31P DTFPB2cYOUt6D3YyCex5NLQa dHls XQ1qwRPbOAzrSg2rcPcekLaf LM0wGSUtyrnoZSAefX9lOISq wZSlmDabBN0gUKDzcreyu290 OiAx IKJ6RQSwvMVdO0NehH6dHbWr CIEwHOJsQ4PwnVSzXMikQ822 JObfVlR3MHOheiJbW0YgIJLd aWdu WyS3v7O0Wg5xBM4sJN3fIIB9 IZ44MY95pSGan0M2lFV0O5Ro FLOccieothenyNK5HFRlXBZo aW47 hSWyKLkpSx3il4J0a674QYKn UITtkS25Lx7dcRxhAKQimKVC iI0zhdvvv8tuiffuQtUyGDWi MDt0 PZw0PELqwJnlEeWoORS6EmN5 TZP3qNWuqM7hvEhoqjudeO3i Oyc+XixcAWOoccX0F7HjQpk2 ZCBz nHdlYQ2xcIKuAAcfOt8lgGbq dIzaMY6jKAFntbsoNVNzfC7c ZVRazIDmqIdgYL0nHOYlsxqn b250 JlOdUBX0HFCcnYVkQ3CngZ7j ChCrPABkPSBjX0SvoZEsIEvs B745FCkuEeL3EWUnraXxD4Pr LWFs wTwtDjL7h6T8Il7MVDwEPB55 BE94hBHht5O7pFF3Z6IvKFVx lchnvjuahPD7GPMcVZTkuO55 cGFk NWjnCw8sx5H0v798OBQuUUWi wA86Cs7ipDrcYTDerPIRnG7m zpdho6vpgvylEeZhOTPrHRe7 ZXh0 HTSdzZnkAbGrPRG8AbB1QQX3 vBDdvN7peNkvwntmlR7hCtf+ F5I5A4IaPyxlwJG+EV55JQHf ZT48 qYSojCAbx7iuzLq9TqCxBBTi PKJ0sCwzNZaxg7XlQFHuB36d uMKxh3K8VUFmfUbdpQTgPnQm bXB0 yV3cFLabkliqp6fpwzspYzzr k8vhew61rF53A80fNJdiNZFx FFVzAFPaIEKacYqewa3wwT5a Ii8+ QXAemMK8kDT8iT0zFnAkCmC9 KXuzD301XdHwcZVjHhwdk1it a5terSb4PvVeHAKuoiNztOrh PSJ0 q9FsJg61R92fEVweFBGmMWNh TGFzXVScrUftuj6rcW8yUx8+ SY9xn7cifb95wF23dDM+PHRk IHN0 iAwzENbfIMSvkX3sLXywVpT2 DVShBkSmjR84iOHsKKooJr8i pYuotTafHQ5mXVAdywwtv724 OiBi w0csBENsfFNqJDcdGEV9J75y t2Q7KPIuRCExGGU1ySI1nB4m bGlnbjogbGVmdDsgdmVydGlj YWwt ESwkU946MMLzyFahRpWhgIRg F0dfcmCXML9uMwakuZT+PHRk YNB1uJncEAcaJEDxaH5lLCAf Z2h0 LvOaZqJ0DRcsV7GdgoN7KVMx tKAsOPRwoFAVlA4pmwyts5gg kpiaIzIgHCVoPNo9POr9VLSw aWdu RkDiRXB4FiM0YFO8rAHntU1w fErhrbqiqF7vHns+RklOOjwv dGQ+PORcUHS8rEvgCCqjNKIi aW5n PYYeS3x1GcSrDgL2AEkwX6Xo zfY0BJQqrTFrBTEaaGXYpZ8j ztrhp6lfokebHiGhGIAxLPc5 ZXh0 UDZjwIewNxLbCZN6GaC6PSV3 wHRwnU1wjDhcbmijfJ1tTxr+ TVJOOjwvdGQ+NYKjVBC9tUkt PSdw JMBoaU0vXMUmA9o6AmYtOoW5 WShkG8FlcwY2WFXmeGKoWRTg jUIIvP6zmmmxj2bgjeeaKrSo MDAw XXb5ALl8BKCzaCyyCuHrHOM8 XeP8SUZ5uJIeqW1ywBlvbxnp fB2vFkq+RCL4JIE4GC56SP71 L3Ry PjwvdGFibGU+PHRhYmxlIHdp THUfECplQHEnRrYkiRevQC9z Yf7nQZGwBADwkIesrZTcJaFm b2xs YXB (more content not included)... [facility] RAD - MISCon 10-03-2023 RAD - MISC [id number] [facility] Provider Orderson 10-02-2023 Provider Orders [id number]#[id number] TIFF [facility] XR Abdomen Single View (KUB) on 10-02-2023 XR Abdomen Single View (KUB) CLINICAL HISTORY: Kidney stones. TECHNIQUE: Single view of the abdomen, 4 images. COMPARISON: 03/26/2023. RESULT: 4 mm calculus projecting over the upper pole right kidney and 4-5 mm calculus projecting over the lower pole of the left kidney, unchanged. No distinct calcifications in the region of the ureters. Pelvic phleboliths. Nonspecific nondilated bowel gas pattern. Visualized lung bases unremarkable. No acute osseous findings. Degenerative changes. IMPRESSION: Renal calculi, grossly unchanged. Final Signed (Electronic Signature): Delonte Membreno MD 10/03/23 11:00 a Technologist: AISHA [facility] Coding Summaryon 09-13-2023 Coding Summary HTMLBase 64 AzilpdctRBm3zGp+PGhlYWQ+ HX9FWAFbM57soGSpdY1rB4QC TElOSywgQVBQTElOSyIgbmFt WS0leFOvQTWl IC8+EP8lFWTuVttrsVYko8J3 bVQ5X81mul6yAWenrEG5QRAe BbBhlbrax7cznWc4VGqfUqsp OyBt FBBdpP38PBM3oY28Jg46zIOv tGNks9rtfWq0VzCsQMRrIOL0 uPceOAkyt4AaKFTwI31dtHXv c2U6 QQKwgQcelJXfHcShgMK8sU6b TNbsvqymo3nlxmjdSoa6pj72 hOXxh5F3rUM9F7NahsM7TTEk bGQg SnwmcSTRuO6nnucvo4eosmam DvYfGZQfPIk5PUv4LWHskClo XxSpGN38ORY4FVVxvkMoB8Mz LWFs fZucMnE1h7T0Wk9MZ1BRPsuj U0WQMXSORAkbfPS+XM98gm45 Y3JbEeolPqr3WSStWCV9jMO2 aD0n NZYiOYmzd7C6xBW5Z8QvaqMb vr8xx5wyJWUqQFwiX74yzWFn c7B2FBHrdMS0ORJsmRbfHwYt aG93 Oyc+TFOpyZgnb7UnCoimh2eb k3xxzYp1DvcsXVVsnuVacUul NPM6g9CmZi3cCETcsHY2cAJ7 aD0i YkLvTeG4OVjdA385CiRodTDg JzrdS86lP6OpjNS+PHRyPjx0 SVJnaLzmTD0bL4TtWYWvzfde bGVm qNbcQY4tFXMnerjpPVNypQ2s ALSiV2b2CfTyWnL7FRduJ8Lj JMCtaidlXf84wE2hJvIlQlZ0 MGlu S1BdedI4LOColGSkTOljPFK7 J15yu3L0JJExIBUqAHG1eEH9 zW1coJzejwrusDBvaDfplrNl dGlj GHhbXErsI524SESmrHrvJrHp ZGluZyBEYXRlOiAgMTIvMDgv MjAyMzwvdGQ+ZKKmUCM1rHim PSAn fMMgPJxkBw4vqBypaRieLZ1j TBDlgfjqGWDtiV4aZIFqiUZu iRanJD6pLIBqmycit089QlBq MHB0 NHZelWAlY5ZmrV2tWnVmRTId OBSlP8JqeDIiOBzuJ498OTmp ZfY3IYEwyeJdO6UzMWHbcCiu OiB0 e6O5Bq9Ks6OxgbquR3ObuVMq MkJwJweyKFw2U0DiHyxpuPQ+ PH33QILsCU38HDu7JKR9iMcn PSdi DQVwD6BrnG1jNgRkABUjOGCj Oyc+PHRhYmxlIHdpZHRoPScx BTSxKvQyvMhuPC3zVe5xPWPu LWNv qOzqvQAiHtIoc8caTZNtMBfw OS0dySaqF8OeeGW2VZHrq5o2 Ak78E00dB1NzfIL+PGNvbCB3 aWR0 fO6mKeRmMoJ3ZNhqW332XpKf nOPvFzrvd8pxd2zkqJy4DbA2 SLEqkfQogOhhTDV2t6YtQu75 Y29s IHdpZHRoPSIxNSUiIHZhbGln hq0sdK9ySg4+GSSmyRV9vAB2 iN5oHvBpMbI4SShbM410YaJt cCIv Ecgtm9cvq5ycePf1CsMxHUGp qcThaFnjMSD1d9ZdAl67W3Ph yDuvw6XtDhz5ts75aGMqy1Z1 bGU9 E4HrJTIdmcvcsSDvcTdmQZ7g BCEslyvmXWBmsA1kTKXhE7k6 KbEiFgZ6ROttJ1RxfdI2OEBp bGQg PBYskULZhS5mcxcga2lrgwzv SiZaQSIrORo7DQn1ZHQzjRos UpYrCQL4RyU0UAL0bPEdjZ1b bGln mtjneZ5iDhc+QAS5lUYviRLJ IJ0pAbdqzZD+RCUaTST6fPoy TSwyCAYitG4cQYPaE0g4TpOk LjA1 FSsvB1ZvjzC0CXBsiBYtGJXw mSITsZ1zpvchn2hxtjsnSlLj GCOaRFm6JDm1PHYoyJinAvFn ZWZ0 QuN7HBE9lRDbuH1nzHtqoahv vQ8zKhv+OndplJddTOM0LHp1 I3PaZze1BYSywEewNQ8euRFf ZGlu Qd4xtZrryEnoQO1iQWTsjjzx x895BoYmo9ntNVSeiTNzZEyg IZA2P33nt3U8BZEtETIkAAT4 dGV4 dD1byGpkydtylUQocGoinuFf qQesMQrlZOsmF224OAOtkWwo YuUgCJb0F3LvYgk7JEIxlMju ZT0n pHFbAZhxEo5uzRoyhEqzZN5q QZDhzijzc260NpUpc7vwNMMg iCUaCRsnVRS2J27mf4G4QKHv MDAw YMR9iNM5dY8cnWrqogktfOCv xAhdprVhlCxxEIilTAktH092 EJPkqArkGdXlfTy2I1GnUuj0 ZCBz zBioHV8wfZSnJRqcBg8maOnc oTceDD6eWAUhseymn967MaAw y3byRJEgjCAoPUvgMCF2I49z b3I6 DNDcNBSoONO5sVP3aX8alGub bjogbGVmdDsgdmVydGljYWwt [id number] bnQg GIviKQu8Q2RwNrullQR+PC90 PMCwTF67oTXtlWZvh1okwSn1 JoGvOTMkOKL5lHtiOUkqt9Mi ZXIt H74dmODba5E6TTAzfIotcJYc CgQreRL8tP0bZSyqrtttu2sm pxsxVlndb7vajx92dV74E26l IHdp HPLwYWYkPFXhGUYdeFjsjs6c eQ3uDd2+CZHbdVO3qQC9lT7b YKCeDpS3SZxuR479UuTudXVm Pjxj k6fce8kmeJd2UgM4WDOytlBl sAurWWY5s3UmPr60W53dTMfr DGKkZFVnERBbPJDftKyhzs2h dG9w Ii8+TBUbjIR6sUA9dG2uOiMj PwA4LGduN826XvYfbPEeKxuq P95qB6WniEB+OHXfMjo5NUTg dHls UV0dnBHcPMauBp4rDIR1HdVd RtXuWAvtN1LsVYVttvmjtang xBU7MLCqRSDmcO90Ot5duStl MTBw yUMVnM2yzzyai6ddrnjgJvAd FBGtQYm9LJm9KVAwbHimEsAt FDV7EtS0JKS9oERoeT3dcJlr bjog mG9eR8IhZOSdyqboEy09mO8n WpFgGsS8NCjsPpw+K3hIR27K AZATV6nSUUu6N7HvYot7OKSh dHls PD5bvESjLRlxAi3vwRvifExm YQ1qINUebqnjKLAojL9oDLUe hCPprVcwQN0jAHXvfdytz176 OiAx OBH0UJDqaKCsH7PzkE5lHmDq DIZtFPZrY1ZhxVXtBYedE053 VZkoPbW2IFQwmvMtY8IeNHOb aWdu OjQ1o1M4Lc5lEU4tYF3lUJV8 EF97WI07iGWbt9H1pKU2J1Lv GKVkpnjujazyhCS9ETLuJNLk aW47 lQDuEHtiHr6lz0I5r059GPKr NTSqjS83Ug2yzMyuQYOprOYC hG8uwhbcn2gyedgfQyLpFHVg MDt0 JTu8DIGheLrwCnQqXAI1WtH9 PCU4aJYcfC8wcCcmevznlD4j Oyc+TmenBJMucfP4U2MtEbu4 ZCBz eUswPJ1rqKXkIRwiJu9hgLdb sLsnPW8aRLLgwlpoIWMiyS1a BOOixJEhfMafWW2mJMWqsrzr b250 RbJpKTQ9YSVuzUQcA9FyeL8k QuZqRFRzNFPkR4VgwPGgLLkc X914LJgvMsB2VKZeujZnZ9Vc LWFs tImjZvF7q7T7Cw4ERZuBXZ37 ZS50jPPsy6L6lPG7Z8GsSBOs ydtjhxspdXV2TBFmUSWvyD91 cGFk CCtkUk0mf2W1e390EGJwQAFe eO57Cu5pjAxfFFEkwVFWgV5b keerg2amtyqvToHbITZhXQp9 ZXh0 MZRlsKbuAuEeVTO2MvN6OPM8 pXTotP3aiGkdgkcodG9gHys+ CN7lhbvhsxZ6QZ88GK86Q2Vc Pjwv dGFibGU+PHRhYmxlIHdpZHRo ZEqjKXPlJpRexWmhWF9oZi7d VFKaMBYevBkmlSFcZgJlg5wg YXBz JJuwMU4mbRjfT1IjlMG9VXCy p5a5Xs87F23pZ8NpaLS+PGNv gWX9gFD0jO7xYlJoZuY3XQvn Z249 TqCxoYSiYglja6lbo3sgxOx3 KlJoOHWuleSjiFkoZWR0i2Vp Ou61D59oZXsdIWGmSOPtUXFz IHZh zBwdpq0mtN0lCv6+PGNvbCB3 jBK6cF9wNuVpTqT2QSdyI721 DfXndFDtHuqiM28rL0DptMN+ PHRy Kdu0XROyrVhhTM6bpTAkMTkm Bp2xNKX0QoXmGxKnTKcqV3Pm YSSilwjehkgvmKS0ORFyLJHg aW47 Lz2vnEwcNg3tBMXnLCJ1JLDe lKOcU6IxhN3cCoQiSTHoPIWb V6IlpFYaFOzaJ310EOyrHtK0 IHZl txThF7FqVLTidOoaFjU0t7Z1 El5JeXareRKrRG7zBvZlRTm3 D5YtAkc4CNNgyIniWW6uyOPe ZGlu Zw7vzUsdqOhiMJ7iYVRqniqt y330YfJmp0seVPWebTTdIQww EHL8G29ve9D7MLBoXTGvQCU5 dGV4 fF8dkKttsyaocDAjfJzcbvRf jCreHFxiTPrxA055FRQipMew EaUYEvy3O2MeEga7XFZxaPov ZT0n kLZsFHrqJj3clGtgrCjxYU0t LQLnrmlne723FnTme2fgAMUz hXEqCYvpHNW8A96mn1B0KAFw MDAw TZA0oBD0wE2dsKyftgwwrRWc yLaqihEtmIcnUZuwFDcuT080 ZOMqmHsnHi5PRca7V5UoXme3 ZCBz bRoaBH8xaUGlRNifZh2gyLcz xTzgZI7zBUZuahupc874TiHi z3sjZTIzvTRcKJxmSKX3C14u b3I6 MXKxCTTlZDL3uTY7lX1ebSfu bjogbGVmdDsgdmVydGljYWwt IGnaV194NBZydDodMyNlxBCy Ojwv dGQ+CB95my57Q9PuUhzkAnm6 QCQyKTL3lPG0uR3yZJPxLJwx p0Q0gRU3D0BjjzBijs7og0za YXBz ZTo (more content not included)... [facility] Electronic Messagingon 09-08 Electronic Messaging --- --- --- --- --- --- --- --- --- From: [employer] ([email or web address]), Directtest To: DANIELE PERRY Sent: 09/08/23 04:57:15 AM EST Subject: Discharge Summary Ready to View A summary regarding your recent visit is available in the Documents section of your Health Record. Normal [facility] ED Clinical Summaryon 2022 ED Clinical Summary [facility] - Emergency Department [address] [place], [place] [id number] ED Clinical Summary PERSON INFORMATION Name: DANIELE PERRY Age: 78 Years Sex: MALE : 1945 MRN: Acct#: Visit Reason: Dental pain; Facial pain; L SIDE FACIAL PAIN Arrival: 09/07/2023 03:59:37 Discharge: 09/07/2023 04:44:00 LOS: 000 00:45 Check In: 09/07/2023 03:59:37 Checkout:09/07/2023 04:44:00 Address: [address] [place], [place] [id number] PCP: Amelia Batista TRADE SPECIALIST PROVIDER INFORMATION Provider Role Assigned Unassigned Mohan Hogan DO ED Provider 09/07/2023 04:03:15 Chio Zhou DRILL PRESS OPERATOR HELPER Nurse 09/07/2023 04:16:20 VITALS INFORMATION Vital Sign Triage Latest Temperature Tympanic Temperature Temporal Artery 36.4 DegC Pulse Rate 80 bpm 80 bpm O2 Sat 96 % 96 % Respiratory Rate 18 br/min 18 br/min Blood Pressure /73 mmHg /73 mmHg MEDICAL INFORMATION Medications Given: Medication Dose Route clindamycin 300 mg Oral predniSONE 20 mg Oral Allergy Information: shellfish PHYSICIAN DOCUMENTATION DISCHARGE INFORMATION: Discharge Disposition: Home Discharge Location: Home PATIENT EDUCATION INFORMATION Instructions: Dental Caries, Adult, Djgo-et-[id number] Follow-Up: With: Address: When: Follow up with dentist In 2 days 09/09/2023 Comments: home call your dentist on Saturday for recheck apt take the steroids for three days take the antibiotics for a week Percocet for pain, as needed (take a laxative with the Percocet, and constipation may result from Percocet), alcohol and driving precautions as well You are welcomed to return anytime. Sergio HOGAN< ER PHYSICIAN< Carlos Enrique Huitron With: Address: When: Amelia Batista [address] [place] [phone] Business (1) Within 3 to 5 days DIAGNOSIS: Pain due to dental caries Patient Understands: Yes - Patient/family/caregiver verbalizes understanding of instructions given Comment: [facility] ED Note - Physicianon 2022 ED Note - Physician Patient: GISELLE PERRY Age: 78 years Sex: MALE : 1945 Associated Diagnoses: Pain due to dental caries Author: Mohan Hogan DO Basic Information Time seen: Date & time 09/07/2023 04:10:00. History source: Patient. Arrival mode: Private vehicle, walking. History limitation: None. History of Present Illness The patient presents with Mr. Perry arrives to the emergency room stating that his teeth are acting up on the left lower, he states has had a little bit of discomfort there, and he has been investigating this discomfort with his dentist, but she has been working on a right upper tooth problem, and was going to be moving along to fix his left lower tooth teeth problem, a dental carry, but his dentist has not gotten around to filling this defect, he has some rather nice gold fillings and caps there but they are very tender, he states they have not been this tender until he woke up 6 hours or so, he took an Aleve it did not help his discomfort, he is not on any antibiotics, he thought he needed something for pain. He drove himself here to the emergency room. He states not a diabetic, does not smoke, has had no fevers, has has no heart valve infection issues, and he states that discomfort is worse to chew food touch. So on exam, he is ambulatory into the emergency room, his head is normocephalic, neck is supple, there is no swelling or tenderness to the parotid gland on the left, but the lower teeth are definitely tender appears to be 1718 and 19, which are gold teeth, but touch him and he has all kinds of pain is a little gingival reaction there, on the buccal side, there is no Ludewig's present, hypopharynx is well without any PPA RECORD KEEPER or RPA. His heart rate and rhythm is regular murmur lungs are clear without expiratory wheeze or rales Chest motion his face is symmetric speech precise hand grasps are normal pupils are equal round reactive 3 mm, this patient has a dental problem.. Medical Decision Making Orders Impression and Plan Diagnosis Pain due to dental caries ([id number]-NR K02.9, Discharge, Medical) No 19, 18, 17 Plan Condition: Unchanged. Disposition: Discharged: time 09/07/2023 04:24:00. Patient was given the following educational materials: Dental Caries, Adult, [id number]-[id number]. Follow up with: Amelia Batista Within 3 to 5 days; Follow up with dentist In 2 days 09/09/2023 home call your dentist on Saturday for recheck apt take the steroids for three days take the antibiotics for a week Percocet for pain, as needed (take a laxative with the Percocet, and constipation may result from Percocet), alcohol and driving precautions as well You are welcomed to return anytime. Sergio HOGAN< ER PHYSICIAN< Carlos Enrique Huitron. Counseled: Patient, Regarding diagnosis, Regarding diagnostic results, Regarding treatment plan, Regarding prescription, Patient indicated understanding of instructions. [Electronically Signed on: 09/07/2023 07:33 EST] Mohan Hogan DO [Verified on: 09/07/2023 07:33 EST] Mohan Hogan DO Normal [facility] ED Patient Summaryon 023 ED Patient Summary [facility] - Emergency Department [address] [place] [address] PATIENT DISCHARGE INSTRUCTIONS Patient Information Name: DANIELE PERRY Age: 78 Years Date of : 1945 Reason For Visit: Dental pain; Facial pain; L SIDE FACIAL PAIN Arrival Time: 09/07/2023 03:59:37 Primary Care Physician: Amelia Batista TRADE SPECIALIST Attending Physician: Mohan Hogan DO Comment: Visit Diagnosis: Diagnoses This Visit Dental pain ([id number]) Facial pain ([id number]) Pain due to dental caries (K02.9) The Pharmacy at [facility] is open Saturday through Saturday from 9A to 6P and Saturday and Saturday from 9A to 5P Prescription Information: If you have been given a prescription for narcotics, seek immediate medical attention if you have any difficulty breathing or any sudden status changes such as confusion and sleepiness. If you or anyone you know is experiencing suicidal thoughts, mental health, alcohol and/or drug addiction problems; contact the [facility] 29/04 Crisis Hotline -text 4hope to 741741. If you received any narcotics, sedation, or any other medication that causes drowsiness for the next 24 hours, unless otherwise directed: ? Do not drive a car. ? Do not operate machinery such as power tools, lawn mowers, drills, sewing machines, or stoves ? Avoid alcoholic beverages and drugs for allergies, nerves, or sleep ? Do not make important personal or business decisions or sign any legal documents With: Address: When: Follow up with dentist In 2 days 09/09/2023 Comments: home call your dentist on Saturday for recheck apt take the steroids for three days take the antibiotics for a week Percocet for pain, as needed (take a laxative with the Percocet, and constipation may result from Percocet), alcohol and driving precautions as well You are welcomed to return anytime. Sergio HOGAN< ER PHYSICIAN< Carlos Enrique Huitron With: Address: When: Amelia Batista [address] [place] [phone] Business (1) Within 3 to 5 days Medication Information: The exam and treatment you received today in the [facility] Emergency Department were for an urgent problem and are not intended as complete care. It is important for you to follow up with a doctor, nurse practitioner, or physician?s advertising sales assistant for ongoing care. If your symptoms become worse or you do not improve as expected and you are unable to reach your usual health care provider, you should return to the Emergency Department, we are available 24 hours a day. For those patients who have received Radiology results, the interpretation of your X-ray as given to you by our Emergency Department physician is only a preliminary report. The Radiologist will review your films and if there is a change in the diagnosis you will be notified by phone. Please make sure you have provided a working phone number so we can reach you if necessary. In the event that you had a lab culture while you were a patient in the Emergency Department, you will be notified by phone if there is a need to change your antibiotic. Please make sure you have provided a working phone number so we can reach you if necessary. [facility] Emergency Department has provided you with a complete list of medications post discharge. Please inform your counter former/provider of your visit and for further instruction on these medications. Any specific questions regarding your chronic medications and dosages should be discussed with your primary care physician(s) and/or pharmacist. New Medications [id number], [address], [place] [id number], [phone] acetaminophen-oxycodone (acetaminophen-oxycodone 325 mg-5 mg oral tablet) 1 tab(s) Oral (given by mouth) every 6 hours as needed for pain. Refills: 0. clindamycin (clindamycin 150 mg oral capsule) 1 cap(s) Oral (given by mouth) Every 6 hours for 7 Days. Refills: 0. predniSONE (predniSONE 20 mg oral tablet) 1 tab(s) Oral (given by mouth) 2 times a day for 3 Days. Refills: 0. Medications to Continue That Have Not Changed Other Medications aspirin (aspirin 81 mg oral tablet) 1 tab(s) Oral (given by mouth) every day. atorvastatin (Lipitor 20 mg oral tablet) 1 tab(s) Oral (given by mouth) once a day (at bedtime). azelastine-fluticasone nasal (azelastine-fluticasone 137 mcg-50 mcg/inh nasal spray) 1 spray(s) Nasal as needed congestion. bifidobacterium-lactobac illus (!-Probiotic Formula oral capsule) 1 cap(s) Oral (given by mouth) 2 times a day. cholecalciferol (Vitamin D3 2000 intl units oral capsule) 1 cap(s) Oral (given by mouth) every day. chondroitin-glucosamine (Chondroitin-Glucosamine oral tablet) 1 cap(s) Oral (given by mouth) every day. cyanocobalamin (Vitamin B12) 1 tab(s) Oral (given by mouth) every day. eszopiclone (Lunesta 3 mg oral tablet) 1 (more content not included)... [facility] Coding Summaryon 07-03-2023 Coding Summary HTMLBase 64 NpayqcgdSUj3yWs+PGhlYWQ+ [id number] TElOSywgQVBQTElOSyIgbmFt TC6mgFDsVOHl IC8+KN3eIQHdAgcmmTZjx2T3 dTB3L69znf7fHIjoqBJ3CHCs CtOadirdf2mgwBb8PYbuQvva OyBt NFKcbU82PLO8kK25Bs79oPOb xCBmi2adtHd3RwAwEFLsUBW5 qVuzAAxto8XuSDNkP01uhZKf c2U6 KIYmxHowjDUlObHmrUT8aX9d LFivuvbup2hgeflhZai0gt75 hRJxo8U7hRW9Z0UrpcH3TLVw bGQg LlmpiKXElE7mrjhxk8enhfro OvNyUFQmHAq5LNm4HCAowFdk XtHoVA52WUD8IQIqqkZtX0Zr LWFs hTcvQaY0h7U3Rb0QY4YLFnzo G7LJUKVQCAqttQU+HX08gv58 M7CgScuhFzt7BNBvGPC8fQX2 aD0n OLElAUgqc3P6bYO2T2ZfvmCk dn6tg4tjFOBbHEnvA29gjFQc t5X3KITptOS6JQPwmSsmRnAp aG93 Oyc+XUIbiXzme8IeYucvu5wv k4xyoGq3NxbwVQOuobDopZdl EKD0f9VvQo7jSOBlePP3cBI7 aD0i AoDwGqV8HLeeU883AoYxyRAm IxvgQ70yI6UjpLX+PHRyPjx0 TROgdXyqJP5oC3VxXHOtwkrf bGVm qHrlKU7rFAExenavHCLovB5t KDHlU2i3CbZoSyB4YYshU2Vu WQMwixlsCi14wT1zVhTtJiP4 MGlu C2HfihS1QSUuvXHsWDbcZRI4 R47wj9V5MNXnPZRsBUE2tES5 nC2niQulydzkgLKzuJtfgbKc dGlj NRwhKYerB586KJRyhFbsBeLa ZGluZyBEYXRlOiAgMDkvMjcv MjAyMzwvdGQ+IRIqIFF5sCos PSAn tIReHNzrYa4ogSybaBqrTW4k SFYhztsnIQCiqH8fQGDzkTSz nUrbEM4qLSSoqrvjk709JnSc MHB0 XPFeiOCsR1RjpR5hTlOcQSDn PBIgJ3RjoRHmQCfqC563AXni SaV0BOJxcoPrY2EhCIUfnUqr OiB0 w8N0Lk6Wl3MpovhgH7RjnOTz UhGiCsyuZUf1U1UzTxivoJT+ GL50CJAaAT08BUi9VUQ2lKpe PSdi IDPhD7FxwZ3rMwErNHTxMCSe Oyc+PHRhYmxlIHdpZHRoPScx HMWuLhOihXgpOY1pHk7sPVIo LWNv rWvsnHWcGsZrv9iwBPHqMElm JN3boOcgM9WiqAK8ZZAaz2e5 Pt65M12tB9FfyZF+PGNvbCB3 aWR0 dN4rFrMiJeZ9DOfjZ793ZlBy gZGtNbhoh3lna9qcmWz6MqN2 JQRqspUkhPptWSE8q5CzEd27 Y29s IHdpZHRoPSIxNSUiIHZhbGln mf1ucT1sGc9+GIHfmIJ8vAX5 vF7lEpCiHpL4TGarH466IrRw cCIv Iarrb7csc7veySv7HtAiOIUc efSwqBkeYMJ4n6YeTi13I2Rh qBjvj9OcQuq9mh20qFEpc7L2 bGU9 D5CmYFFtiivukMIeoUkwGF4g OXDzyxmrPYCjhA1zHUHzV9b7 WoFwEcK4ARmvT9JlklG0WQMh bGQg QCTfzWXIdB9sdkyxx1hopvzi QhLqTUCeCVj5ZCd9GKEtmYli LzMkJPO7XuR5HZC8kFGaiS6x bGln vtbohL3nEei+WGW8kVIxeNIR DO6gSbtfkBT+SYXzSOS2xEfg LMabCGFdjF7bCIMvX1u4XrMm LjA1 HKlsI0CzxqI6UGRriWVgTTAt zBDUdD6mdyhbt0ejupafZpBm PBIdBSy0FDn7CWDnjAclCmOw ZWZ0 AvR2WHM8oJEznW2chRaryaso zH7kMsu+YtqtyXpxLTB5PTo9 J5MkAsa1ZICiwEayAX8zmGJs ZGlu Jj4coHwgyKtbEY1uCJIksuaj p594SlWke3ipNQXcqVBtGQcu ZNO1E78uu8B0WPUdAUEvZLT1 dGV4 bY7ysAzwdduftNQbaZpevvXz yAecPTfnHVpmC804PPMivPcn GyIwNBa1G1PmSup4ZMAqgRsl ZT0n wLCrUVrnWb0rpBshaDxeGZ2p WIEpqasdt589HjKiv2jgCHOu cJKcBSusZHS9M95kg4R1NNMn MDAw NXR1aBD5kZ0zdLtckctmoYLu lPkhjwCjoMvzEDdxXDseJ310 DJRckEoiJxQzzWk0R2LyYaa0 ZCBz kJwxQE9wbTQhAWakGk0ecEkx kHtkUX0dVTAzxqpcj872IuVz d3wnCUAfzLKnORmwMHP1F08s b3I6 OUDnAQEmMLB2sUA8kZ6lzRkz bjogbGVmdDsgdmVydGljYWwt IFweS763SQSqaXusEbTpyQcn bnQg PBqvENc0M5BmNxwwwCO+PC90 EZWiQK19sYGlkFTzm5asxAr8 FbQfNBBtDPK7pDcdVLykv4Wv ZXIt O99yxFUdi8N2UUItnQvqvSUy NaChlXG0dY9xHZvvfprun1fm kzmkGhagc3ooli97vE36X12b IHdp BPJlSAXsUSHdVURwsHcxhk2u hT9gYc3+RXJilNW6oQQ7jO5a TIIfMpN6KAeqA776HiLpvVRl Pjxj q2cha8bkeNz6GuK9WNKvlkEv zGzuUDW8f8NhBp18G73wFPso ATEpHAKoZFNxJKDqrEeohd3b dG9w Ii8+ERHqwBI9hWI0oM1cJzFp JdD6NLziQ661MbQyeRXyPvdp H44eX7JoiHE+YXAcJbg6UUOn dHls AH4trOAgYIfiHy5xUKK3ZyZn QmIcCBycH5CsIKSuzcbzjlny zZB2GTMzRTMaqP11Om4svMbr MTBw uSUTjW9lnywys2wbxxqiAlEd GBShKLq2GLc1XXPnyBzcKwYl BAI2MgQ7FNB3jJJusW2ngStt bjog uX7xC4FmIZPjdovhMu13fD0x GwCjQhN9SNreLmn+N0mPZ24A OVDDF1qTFLw6R5LzAka6SMMe dHls ME2olSGjOYobDm3emKinpNqt XS1cNROpqzmaZBZihJ6pXIOq fNHflPfdPA7gKVQtekger344 OiAx VRF1YQTtnIAbF1DzwF0gIfOe KOPyCYNmD1NxoWTtCXixZ130 HYvaXqW0QUAxfkEtM0TuNNFd aWdu LxQ7u7Q7Jh3zEY7bKW4cZZP2 MJ39MZ75tTEju1H1gYW0T7Rw EXEqnmromvyyxAT2RQByBGCb aW47 kFDdAZkbOy5wp7Q3a444NCRn DVBmjU08Aa6fsCkbSVFqxEWI gC9rkhedp6jofaucPiYpBMBz MDt0 VLz2BNBwgOezEiJaHZW5LwU1 OTC0bYMfrN1efNjckglecG7j Oyc+AdnuAWWuyrY6X1JdPjd9 ZCBz vEioLS5ofDTvGDgaZs4yoQji yNyzOO4lOKFywgueJQSjvZ3a URQfdUBliRocAZ1hWSOlztey b250 RmRtXYV0YILgdIJtD7HttE5h BwCcCLCaQBLyH4IkqQNtBHeo K004WIvqBaL0YOGbiiMrY4Ml LWFs hWibBaV1b4T6Vv4LCKfOZG06 VZ46mNAuo9O1jBS7R2TtWBOx soxuoaihmOX6AFDwMQOphQ17 cGFk GWfwCk0xl0D5a606NZCmCCQn eV60Du2ynLyoKFAdkPPYbJ5y qydjo5lrtmhbDzAbVETqZRc1 ZXh0 VPKmtRbaUnWnMBY5WdS7OXL9 wOZoqB6adOpghthkiJ2mWwa+ Q9T9X4HqJnmcnIJ+HU14SUDo ZT48 eERucYAbp9tzuBr4DyJhHJKi XTO9rHnhRAyhl2IePCCyE05h aXRkr1T8XKInsNhfhFIcQsHx bXB0 bP7cHQiildeoi7asnjyvKgcz m1juzn52hS23D01vAEtaUHOo IYCjGBVpQSTddKdngc0iuO4m Ii8+ ITLekSH6oUM3gU7pRnKsWoL5 SAufV052NhKzqKZrVmuah1iv b2jvmNt8VzByMLZyerMjiJay PSJ0 g5ZpKe82X87oISugQAMkAMBr QIDbYQUllYlfww8laJ8xQu3+ OO0up2nvjm35iO97nKJ+PHRk IHN0 rUalIWcuOCVgxM0uJAfeOjW1 PLFhDaAdhS69eVJzCPtqRz6t cSenjQwmBF9zCATuvrxux566 OiBi m5irNVNuuLRkXYzfPJN1A65h w2S1MLKpJYUkSFZ6cUI0oI2o bGlnbjogbGVmdDsgdmVydGlj YWwt GKnhZ709IKEofSplZiTbcKBn E4zsddSZZX1vZwahhKA+PHRk ONT4gAptRDiwIKSnbC2mRTYn Z2h0 XiBvSdQ1DNnmJ1QhkzH1XENd xGBrNNZllBUNmJ4bqocou5ut dprtXdMfWDMzWRs4QFn4RFFq aWdu WsTcPAO1HnL0XMT3hUDatD0r zUoqsnzfpR7hKwq+RklOOjwv dGQ+FROhMBQ0wTdcUNklZFAs aW5n UQAhG6b1QfLuBcW7PNoiT1Va kcI5WAOhsVRmCIGzgWWKuP7v sirke2vexactXdGtJLGyQFb9 ZXh0 VGJttXmhWxPlSMS6WwQ6UBA2 nWTkbJ6xjFxwzirvmL9jUns+ TVJOOjwvdGQ+ARJeQGM8tWng PSdw UOFzkF3oLZVfA7c3XyXpBdT3 NEohU0PedkR3VZGazVWnGTPr tYIQvU3juzumf8uyubgtMxZg MDAw DRx2EEf3LLBuiFzqHpWrQFE4 LeZ2USN0xPEvuJ0mnVzgfgrf wQ7pUnq+FGI2JFK0WV52EW90 L3Ry PjwvdGFibGU+PHRhYmxlIHdp GENhZKgkTAQrQzGcySqgLZ9t Si8gWAThCOQspLmqtPRjCnWp b2xs YXB (more content not included)... [facility] Coding Summary HTMLBase 64 PtfkvbqlBNl2dLv+PGhlYWQ+ ZN5BSLBoE12lmVVcaX7dC2WP TElOSywgQVBQTElOSyIgbmFt PB3ntJLhAKIu IC8+VL6qQSUqMevajNPwt7U2 jQU1O01tqq6oROujcSN0PEEp DgLelqtua4effJy0CRbrDxgu OyBt QFQniF49JTM6kU53Ih78pITt tNCgf9rwfJz9BzJcWMXpLOF7 cKutVOpcz5VpMABoN75pzEMq c2U6 KBDrdYukoYQpCbLchSE8xB6m RNuitrndo4rjdtgtPns7vk93 hRKab1A1tQG1X5FagcE9NNCv bGQg QulueVUYnD2fwqvgp2vpkejt DlEfDRBhKKw8VLt7JBYhhHev SrRpUX65FFW0RUYzwiSwX1Xc LWFs yRifRdC5k4B1Jz5ZK5ZHProg I8QWLMXJVJyxnIX+EE88zl90 X7FhXjnyDer3PVOcGJI9dOX0 aD0n CIJcVXobq9F8fRZ7H7OjtcFg gc4nx8wjDJSnUKvxI63gaACg x5W2CUUndDB2RMNwkTniYiNf aG93 Oyc+KBLbuUrbu5UoHcqly5vi u4uqoCu6NnnwCJFzwiAjdBgi DNQ1l4NbPp1nMHFvwJW5hPS5 aD0i QaNvFlE4DFbaD668RoPahDOx KfcwG22pG6LifNK+PHRyPjx0 VSBsdMcxER4gI3CpJYIumbnx bGVm dQqkHI9xIBOpfnzcKUOhjY5h RKYtC9s4UgDdLmJ1WIggA1Sn FOUhjsqnHq18gN5pAmTmNsF7 MGlu Y8OsoyP0PXLunSAzUShcBPX8 T61vk8W2UUUhXVGyVDH7dGA8 bP9qhVgwzejgbHZbhHgadmPo dGlj HPxuVCygI950QJMjsAsoJlAz ZGluZyBEYXRlOiAgMDkvMjcv MjAyMzwvdGQ+EQApRKN5sNfc PSAn xNJoIAxaHq2ixHbriTdkAJ8l VTRusbdqGYBnqC3wUROzxWFf xTcyMU3jDYEuusfpm023DvWs MHB0 EINthNGaP4LliD9rWlAyFYNp VVTqX7KgoSHqPLaiA035AIsp OvX0PQZsuqMmE3BoHDHcaYss OiB0 r7M5Gm0Op4UnhwkcE0YbbXJp XsZwDtbgGJr8J9AgEcmruOM+ QL62TXEuVR58HRx8QHE6sDcl PSdi FSUyG4QarD2nTxZbMLXsKTOf Oyc+PHRhYmxlIHdpZHRoPScx OKFyBoIwlDrlUN0cPh5uANLe LWNv bDoiqJRpXgXvx0gkNEPmHZpr QI0eeRciQ8CkaDC7HZFet8p1 Ud66W08fD7DchHA+PGNvbCB3 aWR0 dA7gTfAmTmK5VOwlS254HkWk nVGrWrfmv5hfz0cmcWk8QsR9 QZArsdUvkLniTEZ6g2EtYc74 Y29s IHdpZHRoPSIxNSUiIHZhbGln nu0tgH5pLb0+PXFpuPG2xLW8 cY5wCsIpIdN0SIqoZ004RbZy cCIv Mscqw8ccr4qysHi9QdKbSOUy qgSoaRuxOSZ9e5LrLb34D5Pn xSngz3MkLbe6tz39gMAwx9M8 bGU9 X3YdBMQqzwicoNBobGmxUK7z WFBplinfBIGjcZ9uMBWrT4j6 SeZiZuO6APgcJ9StvgT7BPKu bGQg RLNirSOSaF5dqkzdd7rtqxam YeHrDXNuXFe7HJh4FKIdaVsm QtYpZOX4PcS0ZQL1vOIpbT1q bGln odgwaV4wWsr+HLA8uZQqkOUG XF9sDywmiOW+JEDcWLB9zWxk IKdqEVYalD1cLCClA1k5UbQc LjA1 NJfwA2QjhtX3FHUmnLBmIURk aRFWhE9kbcivr0sxmouyFaSx OCKkVKg3KPm3EMQszSvqAxDs ZWZ0 DaH3CQX0wTLceM2fbYdletcf kW6mQwa+IljsaMoiZTZ3KRk0 M4FsBza0BPTyeOiuCM2ozSPw ZGlu Lt2zfIbpiIuqSV1nXCPmvmte g678YfQeq9hbDHOjhJFrHYaf LQG9T43ka7G3CDLwEAIcJVL5 dGV4 gO6cyYbqlotpmGIzyZbddoXi wCbeFMrxFMfcB360TSHndHft DyHcMSw7J8JbIya7XBKwtGml ZT0n lXCePMltFi7ojSykqWopDA2p UIHkqrdgp560YsVir5hsANNa iBVdHBipBQZ5R30jt7C3JJTu MDAw IZC2vSG0nB1caYnxlpqdzXHz qTjznnZvjYgoXRuoVBvoG972 TOTzeEixVuWxeGm7I2QfXbs2 ZCBz xFttUP6flBVkJYzkGa1htKkv gQvePN9iSGWpiomjz044ZlMz h5dgWGHzePYaJTleAYC4A38q b3I6 JVNrSZZqZBC2cOV7yP7eaPup bjogbGVmdDsgdmVydGljYWwt OGrmL668ENXmfGjiSaNtiToo bnQg ZLagOJb3E0JjDlovsTA+PC90 VIFdNY70oNFjxHDlk8ezxTu4 VtYgWHPhJWX4gHreYWydf8Me ZXIt L50kjRYtc8O8EBXcbQacaJUw JkHzjMU7aG9kXFdsnkrll3hg nfmpKmbqp0aefa43rS01E52l IHdp ZLBaMUIzCAOnFBLmnKcggh0l qC9tKu7+BZLnmNI9vWE0eY6d EOTjCjS8UWelV643KdYfhXFt Pjxj m3zwl3xtcYy5FcN1KSItsoPc kEzkNCL1r8KnZs42L20fLQox DBRrHBFgRTPyEEFxwDnuyz2g dG9w Ii8+DQIeiKJ2lJQ3mX7oKjRb JqG5ELxyV055PgInoMPqNcsb E81gN3FsaJG+KKQiBki0ZHXz dHls VE7ziLDfNJsuYa6iABS5MaCq RhZaFXykK7OoTWZodwhgnexn rQV3JENyRCXfnU26Ww5ehSgv MTBw tPYAoM5wbliao0lomalxDnEw RWStDFc1FNa6ZNFrcZhhSoKa CTU5IuI3GCB9fLObzK1jcKyp bjog kJ9vI7OkIIWnmaycSv00aH2m BpNbBrD3SDepSgy+E0kVT26E JADAU7cCUMt6D5AfIle3YQHj dHls YI7ctXNbPJsuEs4xsDewxCpq VF2rLWFclpjpEYLkhW9pPMHk hIYmyOeoSF4wDTLyecrdr811 OiAx QNW2KEParCMaS8DkpP5mOjJf AHQeEJMbA9DctMWvEPduW785 XPgsPmK8ISXpbsAoU1IeGNYu aWdu PjJ9r2S9Zy4wJT1gLW9gNKX2 EB31GL76oWMei2Q8tPN4S0Oz ZKFgjptvdmhodTI0UYRlKEHx aW47 lEViVDefAx9xg6P2l588SBFn GWFsbI68Rb8kdWlwPNPmmDAN zQ4hnzvho1szvxipTdIqMKOr MDt0 ZWv7WLJhwFtbKnQfKNY4YeM3 HEK0mJVtdS9woIkeuahcmD3i Oyc+XftpOJLxryU4M2YuGdc4 ZCBz hOjxYO4faKGcJKhqKn5edPim yOqmON3qWLMjwbsdQKApbF6i WIWxqWQkoQhvGI8qKAMhtykn b250 YlXeYFB1ZXFdeAQzI5RhmI7b IbZkPCCwTCNsJ7RdvCBuGGvq I605IKmpYpK1YVWiveWkL7Sd LWFs xBnmBfG6n2R4Pm8QVNxTKJ85 UL80xTDhc2F4eAF2A0ZjQUBp glbhheaudJX5YVAfZQIipL08 cGFk HLdzYq5ne9P6q604FDShMFHr vE92Bm5pkPynXSCvlHGPuV9c glcwf7zzrgstAaDmLVKvLEn9 ZXh0 ZMEcdVhvFcVaRFK2KtF8VRC2 jCCicP0kbVizmazoaN5hErf+ L1R9X3BrElbsiIB+TB85HWNf ZT48 hTOefQSkm3hruAa9MuZtDEKy FLV5dQzeNWmrw0KtKBRiH24n jYGjh6D7AJOiuYdlmGYoFoUd bXB0 kI2gELezuyhov5brnocwHijw n1qpne97dP10V83zZFimPJCu MAYwPYUlHZGatVirih3plW2z Ii8+ BUAbhKA0kFE7rO8mOkGvQbA4 TLioE079StWzrEIvNnwli3gv t6vcbGm9FcLbEGWhqtItoAjx PSJ0 g4DhNg24G83sPCrmKVJrAXCj YVOsQQYeqAlwcu3ikM1uIf7+ SF5gf9povf84gA17tTA+PHRk IHN0 tOidWMjhQCPwoQ6bMVxnTvM6 YOOxQaYsvL40zCVmOZugLb0a tJcemTsiPH8qSTTvlpazn603 OiBi e6ykXZZlaNGfBVadQSY1S56h l4I0KIMqXTXpPTF5hXO2jQ2x bGlnbjogbGVmdDsgdmVydGlj YWwt RJpiT673NGSimNzlCsGmxJTd U4dngqKPCU8hGaitlXJ+PHRk SOM1bEydZVnbVNEujW2jFVNr Z2h0 ZzYjWiM0ZMfkU9HxqxE7UHBm vIDrLBHubTRUsN7sftotd2lc aisyShXzHONbDDi7ZEo4GTYp aWdu MwSyPOD0QqT2BMH9cMVslO7d hOdmxzcusC5aSxo+RklOOjwv dGQ+CCCvTEB5pDgfMDkpWBYh aW5n KQXsF3w5BpUfVaP9GRnxF1Jv byC7OQUypTLtXXBdsOMJmW1b thrfz5wtiszdMmSvSMJyCHu7 ZXh0 GYJeuQpkYqDxITF2ZnF4VHN2 cAVxeH4xvGxykeajeF2sQlf+ TVJOOjwvdGQ+TVVwOFL8qGsu PSdw GQZroV6xYZKqE6e3XfLkVkU8 SUaiM2LlczP9MAUvnWJpNZAp kLBWpD9hxtatf1eoszptVqEt MDAw EQp6FSy7YGEkdOyxOdZqNTD8 SzN5GZJ7zTNqlY2knEndkasv mK9jMvk+YQD3HBF9MU38DC67 L3Ry PjwvdGFibGU+PHRhYmxlIHdp QPMpIFhiJFAbUwTezHdcLS8r Zk3jGEJeIJCpcRokbNAmObFb b2xs YXB (more content not included)... Normal [facility] Physiological Stud y Bilateralon 06-28-2023 [facility] Physiological Study Bilateral CLINICAL HISTORY: Pain. COMPARISON: Lower extremity arterial ultrasound from earlier 06/28/2023. FINDINGS: On the right, the brachial systolic pressure is 97 mmHg, the high thigh pressure is 129 mmHg, index 1.33 the knee pressure could not be obtained the posterior tibial ankle pressure is 173 mmHg, index 1.78 the dorsalis pedis ankle pressure is 223 mmHg, index 2.30 And the great toe pressure is 111 mmHg, with toe-brachial index of 1.14 (normal 0.7 or greater). The plethysmography waveforms are normal through the ankles, the right great, third and fifth toes. Markedly diminished waveforms are present of the right second and fourth toes suggesting distal disease. On the left, the brachial systolic pressure is 91mmHg, index compared to the right 0.94 the high thigh pressure is 131 mmHg, index 1.35 the knee pressure could not be obtained the posterior tibial ankle pressure is 154 mmHg, index 1.59 the dorsalis pedis ankle pressure is 172 mmHg, index 1.77 and the great toe pressure is 137 mmHg, with toe-brachial index of 1.41 (normal 0.7 or greater). The plethysmography waveforms are normal through the ankles, the left great and third toes. Mildly diminished waveforms present in the left second toe. Markedly diminished waveforms are present of the left fourth and fifth toes suggesting distal disease. IMPRESSION: EVIDENCE OF SMALL VESSEL DISTAL DISEASE, NOTED. NO EVIDENCE OF SIGNIFICANT PROXIMAL LOWER EXTREMITY OCCLUSIVE DISEASE. Final Signed (Electronic Signature): Elizabeth King MD 07/01/23 5:56 pm Technologist: DONITA CUELLAR [facility] US LE Arterial Duplex Kade murcia 06-28-2023 US LE Arterial Duplex Bilateral CLINICAL HISTORY: Peripheral vascular disease. Right foot pain for 3 weeks. COMPARISON: CT abdomen and pelvis with contrast 04/02/2022 and lower extremity arterial ultrasound 07/25/2017. Grayscale, color and waveform Doppler analysis of both lower extremity arterial systems was performed. FINDINGS: The arterial system is normal in caliber, without arterial occlusion, aneurysm or evidence of dissection. There is mild atherosclerotic plaquing with pulsatile triphasic waveforms noted throughout both lower extremities. Maximum systolic velocities are: RIGHT LOWER EXTREMITY: Right common femoral artery 75 cm/s. Right proximal superficial femoral artery 76 cm/s. Right mid superficial femoral artery 57 cm/s. Right distal superficial femoral artery 53 cm/s. Right proximal popliteal artery 49 cm/s. Right distal popliteal artery 44 cm/s. Right proximal peroneal artery 28 cm/s. Right proximal posterior tibial artery 46 cm/s. Right mid posterior tibial artery 57 cm/s. Right distal posterior tibial artery 21 cm/s. Right proximal anterior tibial artery 45 cm/s. LEFT LOWER EXTREMITY: Left common femoral artery 75 cm/s. Left proximal superficial femoral artery 59 cm/s. Left mid superficial femoral artery 56 cm/s. Left distal superficial femoral artery 49 cm/s. Left proximal popliteal artery 50 cm/s. Left distal popliteal artery 47 cm/s Left proximal peroneal artery 37 cm/s. Left proximal posterior tibial artery 34 cm/s. Left mid posterior tibial artery 75 cm/s. Left distal posterior tibial artery 65 cm/s. Left proximal anterior tibial artery 35 cm/s. IMPRESSION: NO FLOW LIMITING STENOSIS, ARTERIAL OCCLUSION OR ANEURYSM OF EITHER LOWER EXTREMITY. STENOSIS CRITERIA % Stenosis Peak Joni Normal <150 cm/s 30%-49% 150-200 cm/s 50%-75% 200-400 cm/s >75% >400 cm/s Occlusion No color saturation Jose DV, Sung JE, et al. Comparison of contrast angiography to arterial mapping with color flow duplex imaging in the lower extremities. J Vasc Surg 1989;10:522-32 Final Signed (Electronic Signature): Elizabeth King MD 07/01/23 5:39 pm Technologist: Maldonado GARCIA [facility] 06-27-2023 L ---- Specimen: [id number] Received: 06/27/23 [facility] Num: [id number] Spec Type: Surgical Subm Dr: Eliceo Dobson MD Tissues: A Duodenum - Biopsy (DUODENUM) B Gastric Biopsy (GASTRIC BX) Procedures: HE/4, Gross/Micro L4/2 Age/ Patient Sex Location Account Attending Physician PerryDaniele Monaco 78/M [id number] Eliceo Dobson MD SPEC NUM: [id number] RECD: 06/27/23 STATUS: LENNY GALLEGOS NUM: [id number] ROD: 06/27/23- [facility] DR: Eliceo Dobson MD ENTERED: 06/27/[address] [facility] [address]: FLOYD TYPE: Surgical DEPT: S ORDERED: HE/4, Gross/Micro L4/2 ORDERED: HE/4, Gross/Micro L4/2 Pathological Diagnosis A. Duodenum, biopsy: - Duodenal mucosa with gastric foveolar metaplasia B. Stomach, biopsy: - Gastric fundic gland mucosa with mild chronic nonspecific gastritis - Negative for intestinal metaplasia or dysplasia - Negative for H. pylori (H E stained slides) Clinical Information Esophagitis, esophageal stricture, duodenitis Gross Description A. Received in formalin labeled with the patient's name, date of and duodenum biopsy is one quan tissue measuring 0.2 cm. Entirely submitted in one cassette labeled A1. B. Received in formalin labeled with the patient's name, date of and gastric biopsy are two quan tissues averaging 0.2 cm. Entirely submitted in one cassette labeled B1. Specimen: [id number] Received: 06/27/23 Status: LENNY Gallegos Num: [id number] Spec Type: Surgical Subm Dr: Eliceo Dobson MD Tissues: A Duodenum - Biopsy (DUODENUM) B Gastric Biopsy (GASTRIC BX) Procedures: HE/[place], Gross/Micro L4/2 Patient: PerryDaniele [id number] (Continued) Specimen: [id number] Received: 06/27/23 (Continued) Signed (signature on file) Tani Lucas MD 07/01/23 1508 Specimen: [id number] Received: 06/27/23 Status: LENNY Gallegos Num: [id number] Spec Type: Surgical Subm Dr: Eliceo Dobson MD Tissues: A Duodenum - Biopsy (DUODENUM) B Gastric Biopsy (GASTRIC BX) Procedures: HE/4, Gross/Micro L4/2 Patient: Dainele Perry [id number] (Continued) Specimen: [id number] Received: 06/27/23 (Continued) Microscopic Description A. Two H E slides reviewed. The microscopic examination confirms the diagnosis. B. Two H E slides reviewed. The microscopic examination confirms the diagnosis. CPT Codes 08317v0 Specimen: [id number] Received: 06/27/23 Status: LENNY Gallegos Num: [id number] Spec Type: Surgical Subm Dr: Eliceo Dobson MD Tissues: A Duodenum - Biopsy (DUODENUM) B Gastric Biopsy (GASTRIC BX) Procedures: Dennis PENA/Yen L4/2 Patient: Daniele Perry [id number] (Continued) Signed (signature on file) Tani Lucas MD 07/01/23 1508 [facility] Provider Orderson 06-24-2023 Provider Orders [id number] GTIFF [facility] 04-04-2023 L ---- Specimen: [id number] Received: 04/04/23 Status: LENNY Gallegos Num: [id number] Spec Type: Surgical Subm Dr: Eliceo Dobson MD Tissues: A Gastric Biopsy (GASTRIC BX) Procedures: Dennis AREVALO/Yen L4 Age/ Patient Sex Location Account Attending Physician Daniele Perry /[facility] [id number] Eliceo Dobson MD SPEC NUM: [id number] RECD: 04/04/23 STATUS: LENNY GALLEGOS NUM: [id number] ROD: 04/04/23- [facility] DR: Eliceo Dobson MD ENTERED: 04/04/[address] [facility] [address]: FLOYD TYPE: Surgical DEPT: S ORDERED: HE/2, Gross/Micro L4 ORDERED: HE/2, Gross/Micro L4 Pathological Diagnosis Stomach, gastric, biopsy: - Reactive gastropathy. - Negative for Helicobacter pylori on H E stain. Clinical Information Dysphagia, rule out H. pylori Gross Description Received in formalin labeled with the patient's name, date of and gastric biopsy rule out H. pylori are two quan tissues averaging 0.3 x 0.2 x 0.2 cm. Entirely submitted in one cassette labeled A1. Microscopic Description Two H E slides reviewed. The microscopic examination confirms the diagnosis. CPT Codes 76174 Specimen: [id number] Received: 04/04/23 Status: LENNY Salehruthie Num: [id number] Spec Type: Surgical Subm Dr: Eliceo Dobson MD Tissues: A Gastric Biopsy (GASTRIC BX) Procedures: Dennis AREVALO/Yen L4 Patient: Daniele Perry [id number] (Continued) Signed (signature on file) Manda Faye MD 04/05/23 1004 [facility] [place] 04-04-2023 Screens [id number] :127 Normal [facility] Patient Educationon 04-03-20 23 Patient Education Nephrology Dietary Guidelines to Help Prevent Kidney Stones Kidney stones are deposits of minerals and salts that form inside your kidneys. Your risk of developing kidney stones may be greater depending on your diet, your lifestyle, the medicines you take, and whether you have certain medical conditions. Most people can lower their chances of developing kidney stones by following the instructions below. Your dietitian may give you more specific instructions depending on your overall health and the type of kidney stones you tend to develop. What are tips for following this plan? Reading food labels ? Choose foods with no salt added or low-salt labels. Limit your salt (sodium) intake to less than 1,500 mg a day. ? Choose foods with calcium for each meal and snack. Try to eat about 300 mg of calcium at each meal. Foods that contain 200?500 mg of calcium a serving include: ? 8 oz (237 mL) of milk, zbmfycg-oefglstxvzke-dzu ry milk, and calcium-fortifiedfruit juice. Calcium-fortified means that calcium has been added to these drinks. ? 8 oz (237 mL) of kefir, yogurt, and soy yogurt. ? 4 oz (114 g) of tofu. ? 1 oz (28 g) of cheese. ? 1 cup (150 g) of dried figs. ? 1 cup (91 g) of cooked broccoli. ? One 3 oz (85 g) can of sardines or mackerel. Most people need 1,000?1,500 mg of calcium a day. Talk to your dietitian about how much calcium is recommended for you. Shopping ? Buy plenty of fresh fruits and vegetables. Most people do not need to avoid fruits and vegetables, even if these foods contain nutrients that may contribute to kidney stones. ? When shopping for convenience foods, choose: ? Whole pieces of fruit. ? Pre-made salads with dressing on the side. ? Low-fat fruit and yogurt smoothies. ? Avoid buying frozen meals or prepared deli foods. These can be high in sodium. ? Look for foods with live cultures, such as yogurt and kefir. ? Choose high-fiber grains, such as whole-wheat breads, oat bran, and wheat cereals. Cooking ? Do not add salt to food when cooking. Place a salt shaker on the table and allow each person to add his or her own salt to taste. ? Use vegetable protein, such as beans, textured vegetable protein (TVP), or tofu, instead of meat in pasta, casseroles, and soups. Meal planning ? Eat less salt, if told by your dietitian. To do this: ? Avoid eating processed or pre-made food. ? Avoid eating fast food. ? Eat less animal protein, including cheese, meat, poultry, or fish, if told by your dietitian. To do this: ? Limit the number of times you have meat, poultry, fish, or cheese each week. Eat a diet free of meat at least 2 days a week. ? Eat only one serving each day of meat, poultry, fish, or seafood. ? When you prepare animal protein, cut pieces into small portion sizes. For most meat and fish, one serving is about the size of the palm of your hand. ? Eat at least five servings of fresh fruits and vegetables each day. To do this: ? Keep fruits and vegetables on hand for snacks. ? Eat one piece of fruit or a handful of berries with breakfast. ? Have a salad and fruit at lunch. ? Have two kinds of vegetables at dinner. ? Limit foods that are high in a substance called oxalate. These include: ? Spinach (cooked), rhubarb, beets, sweet potatoes, and [place] chard. ? Peanuts. ? Potato chips, saudi arabian fries, and baked potatoes with skin on. ? Nuts and nut products. ? Chocolate. ? If you regularly take a diuretic medicine, make sure to eat at least 1 or 2 servings of fruits or vegetables that are high in potassium each day. These include: ? Avocado. ? Banana. ? [place]ontas, prune, carrot, or tomato juice. ? Baked potato. ? Cabbage. ? Beans and split peas. Lifestyle ? Drink enough fluid to keep your urine pale yellow. This is the most important thing you can do. Spread your fluid intake throughout the day. ? If you drink alcohol: ? Limit how much you use to: ? 0?1 drink a day for women who are not . ? 0?2 drinks a day for men. ? Be aware of how much alcohol is in your drink. In the [place] one drink equals one 12 oz bottle of beer (355 mL), one 5 oz glass of wine (148 mL), or one 1? oz glass of hard liquor (44 mL). ? Lose weight if told by your health care provider. Work with your dietitian to find an eating plan and weight loss strategies that work best for you. General information ? Talk to your health care provider and dietitian about taking daily supplements. You may be told the following depending on your health and the cause of your kidney stones: ? Not to take supplements with vitamin C. ? To take a calcium supplement. ? To take a daily probiotic supplement. ? To take other supplements such as magnesium, fish oil, or vitamin B6. ? Take edwi-zgt-bulgdmz and prescription medicines only as told by your health care provider. These include supplements. What foods should I limit? Limit your in (more content not included)... Normal [facility] Urology Office/Clinic Noteon 04-03-2023 Urology Office/Clinic Note Chief Complaint 1 year follow up w/ KUB HPI Staff Pt is here today for 1 year follow up w/ KUB. KUB done 03/26/23 shows bilateral renal calculi. Previous DX: BPH hematuria, hypogonadism male, nephrolithiasis, organic impotence. IPSS SCORE 8. Pt is currently taking Alfuzosin 10 mg ER tab. Dysuria: denies pain and burning Incomplete bladder emptying: denies Hematuria: denies visible blood Frequency: every 2 hours Urgency: denies Nocturia: sometimes 2x a night, not often Stream: slow stream Leaking: sometimes when holding urine too long Post void dripping: denies Wearing pads/ Depends: denies Urge incontinence: denies Stress incontinence: denies Incontinence without Sensory Awareness: denies Abdominal pain: occasional Rt sided pain Flank pain: denies History of Present Illness Tests reviewed: reviewed UA, KUB. I have reviewed the previous health record information and history for this patient from Dr. Forbes. I have reviewed and verified the staff HPI to be accurate for this encounter. There have been no associated fever, chills, flank pain, or blood in the urine. Denies any urinary infections since last encounter. Review of Systems PHQ Score Initial Depression Screen Score: 0 ROS - Provider Constitutional: denies weight loss, denies hot flashes. Eyes: denies eye problems. Gastrointestinal: denies nausea, denies vomiting. Cardiovascular: denies chest pain or angina. Integumentary: no dryness Musculoskeletal: denies musculoskeletal symptoms. ENMT: denies otolaryngeal symptoms. Respiratory: no shortness of breath. Heme/Lymph: denies easy bleeding tendency, denies easy bruising tendency. Psychiatric: no confusion, no anxiety. Genitourinary: See HPI. Physical Exam Vitals & Measurements HR: 55(Peripheral) BP: 88/57 HT: 74 in HT: 188 cm WT: 85 kg WT: 187 lb BMI: 24.05 General Appearance: alert, no distress, well nourished, well developed male. Genitourinary: normal scrotum, normal testes, normal urethra, normal epididymis, normal vas deferens/spermatic cord. Flank Pain: none. Bladder: nonpalpable. Assessment/Plan 1. Nephrolithiasis (N20.0: Calculus of kidney) Pt presented to [facility] ER on 04/02/[address] AP w con 04/02/22 - Small 2 mm R renal stone. KUB 04/25/22 - Stable RSP 4 mm stone. No L sided stones. KUB 03/26/23 - 3 mm stone RUP. 3 mm stone LLP. Reviewed KUB with pt. Will cont to monitor. Follow up 1 yr KUB or sooner if needed. Pt understands and agrees with plan. 2. 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 Stopped Flomax and started Alfuzosin 10 mg ER qd at prior OV due to retrograde ejaculation. Then pt called a few days later c/o lower abdominal pain and pain with urination, so Alfuzosin was stopped and Flomax 0.4 mg bid was restarted. Pt still taking. Cont wo changes. Stream slower than it used to be. No start/stop stream. Feels he empties completely. Discussed adding additional class of prostate med to help with urination. -Start Dutasteride 0.5 mg qd. SEs discussed. Rx sent to [facility]. 3. History of UTI (Z87.440: Personal history of urinary (tract) infections) Pt called on 04/23/22 c/o RLQ pain, hesitancy, and incomplete bladder emptying. UCx 04/25/22 - +, treated with Bactrim bid x 7 days. UA today shows trace leuks. No infection sxs. Will not treat since he is asx. Educated pt on UTI sxs. Pt to call if he becomes symptomatic. 4. Hypogonadism male (E29.1: Testicular hypofunction) Testosterone injections from PCP q2wk. 5. 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 Follow-up With When Contact Information ANDREI WEEKS, Julio Woods, URL [facility] [address], [place] [address]- Additional Instructions: 1 yr KUB Patient Education Dietary Guidelines to Help Prevent Kidney Stones I, Hansa Espinoza, personally scribed for Dr. Forbes on 04/03/2023 13:21:57. . Documentation recorded by the scribe, Hansa Espinoza, accurately reflects the services(s) I performed and decisions made by me. Authenticated by Dr. Forbes on 04/03/2023 13:23:18. Problem List/Past Medical History Ongoing Abdominal pain BPH (benign prostatic hyperplasia) BPH with urinary obstruction Diverticular disease Hematuria History of UTI Hyperlipidemia Hypogonadism male Nephrolithiasis Organic impotence Parkinsons Historical No qualifying data Procedure/Surgical History Extraction of wisdom tooth, Nasal sinus, Ts and As - Tonsillectomy and adenoidectomy. Medications alfuzosin 10 mg ER Tab, 10 mg= 1 tab(s), Oral, Daily, 3 refills, Not taking aspirin, 81 mg Fish Oil, Oral glucosamine, 500 mg, Oral Lipitor, Oral, Daily Lunesta, 3 mg, Oral, Once a day (at bedtime) Neurontin, Oral, Daily primidone, Oral, TID propranolol Requip, Oral, TID Sinemet 10 mg-1 (more content not included)... Normal [facility] Comment on above: Result Comment: Elec tronically Signed By: Julio FORBES MD\.br\Date and Time Signed: 04/03/23 13:23 EDT\.br\Electronically Co-Signed By: Hansa Espinoza.br\Date and Time Co-Signed: 04/03/23 13:22 EDT Coding Summaryon 03-27-2023 Coding Summary HTMLBase 64 TdpkpbfpFNe8nDh+PGhlYWQ+ SR9YKSWsF46inOJvuL1sI3UG TElOSywgQVBQTElOSyIgbmFt DW8wiMJvCLVe IC8+CG5dMBIdNqgfyJUtp3U9 zST5P18dex1jNDkbbIK3IPKq HxGkeyswd4hpdGj9GFmqRoxo OyBt LHFfwG19YIE3qA40Od79xNFs mNUtx5plpMh8TsZxLKYtGOY3 eYfxIJeda2JcQBVlX92moWYu c2U6 CMPtfMuczCFkOhLxnZW9uF9h HAnfutrjm3izdmwqGsf6ov92 nLGbs4X7hJI2A6AqqmF8BFGa bGQg LstmwPYCzL5zabfji0nsesby SyFkBQUaQHm4QXt2FWUowUze FbUfCW07WTS5XYIrokPyA9Ta LWFs hZlsQyP5r4I0Ek0VI5DCGovw H2LGADCRATfuxUN+JT13et48 O5AoSpepIue2UWViVPU9jFV5 aD0n JBZyKKzwn2W5nPE9K0SzwqEe ex3cb6deZPApPAftU79pkFWk j0T6BKJqhTV9NPCvcHwjUwBi aG93 Oyc+JFCmmVcnj0YyHofht7qr x7gatVe7AxqnQTBllhDviPuv BDZ7j2PaSo6vQIUbwNP5sRL1 aD0i IbBrGwZ2QTsfO904HjNvrTKc EzluF42lT2WfmYY+PHRyPjx0 AKUawHdfZI9nY2TmDPEawhar bGVm lOkxFV1cVSTidwbbPFUmgY5c BJYiN9f7CiEbSrV7GXgdE0Xt VHQwnieyKf45oZ9bKyIvJjY1 MGlu S6AmcoG7VRUgvMUfNVccSYB8 I63kt0O1VYFnWUDkIRN1tEW9 vW8htHsqhpnvgLRfcSdofzXq dGlj JTxkVGuoW862LEZnwRolZwNd ZGluZyBEYXRlOiAgMDYvMjEv MjAyMzwvdGQ+ZAKoOKI5wPus PSAn aCDaFPsdVu7uoFsiuGmeDA4o KDOzdricRGIqgT7gNNNyvDHc oKepNZ8nQBNmqktmi029TsBy MHB0 QOTqiPQsF8SugE3tJaKjZTSm ZDDdT6EtfNNrYSamB209JKlb QwT6IVPyzrWwJ5MfCLHuaOjr OiB0 f6Y2Dq4Aj7JepkycS1UryWSt HzLsCoowAEg1Q9EuFravkBG+ SF90ODVrCY56DWa9BLT8ySgw PSdi PWOeQ2ShpO4sXvCoFKLlUWMw Oyc+PHRhYmxlIHdpZHRoPScx GYSgSfVqfPpmNG6kGs2qFRPi LWNv cAqkiRWePgMhu2dzBSPxEUcy PI2vlHyuC4YeaSF5WYOwh6e4 Wh89W13uF9QmoYR+PGNvbCB3 aWR0 yR2uWsSwBcI2VAzbN109WrXu nWQrBzfrk7jnp3upyQz1TgS1 KYJjdkEwwTpvGIQ4w3VgId24 Y29s IHdpZHRoPSIxNSUiIHZhbGln ls4rpY1jCe5+CLTakEC8jQX4 fZ8cOhCuJgX6XClrW895PxKu cCIv Nxjit8oag8wgcBd3PdEuLCGx ptVcaZviJMN6r6AtHx02O6Dc bFgcp0MgJhf0js88pVTix7F4 bGU9 Q9FeQEDzwxdomQKelSnjOF9p LZYjiaazGZSuqJ8zLUUpI9r1 SbTzFqX7RBlnY3NekqZ3GSDa bGQg VUOyhYKWlF4skuyew7gmamep SlWrXFDkIFr2OKm9VYKviEsf NiXdTUF0JmL3UBO8kSHzwM9a bGln omlahK8nCrm+QHU1oMBbeONX GH2cKrdwcOV+NIBvHZU2hXpi XLacJWGeiA2iFVKmL8q1SfZa LjA1 IOmwT6VuofO1YPKijLZpYVAz yUQQuZ6wqjdwf6wcnunkNmNo XZVvHJj9JBe4ODKfzPpiRfYk ZWZ0 IgA8SUY9dUDlbL8jqJdtbtxw xY8yFfr+BkyqlVpyDNE0OKo6 T2MzOru7DRFtfSpbDJ4jvWRq ZGlu Oe3vfBfoxAfaOX6sBAJcoflq x160VrRws8qqLJLysUVlIQhr SGT5D13xn6D8KNUjCYJgOJU7 dGV4 zR1jtLycvkngyUEjwAlcwbFl iTvtQHyhKMbqR218QHYbgYfg ZkTcNTi4P4PqRqj2VULdoWfk ZT0n wRHeRYiyAx2niAjaiOplUH3y CPCdzuarc256FbTwz6xyODIe tEDnZLqwVAM3A61gk8S8TDUq MDAw ILJ0wWC6qM6dxEtzuwlnzYMh mFnfvsFjnEdzEBwfUGftR312 IIJxqAnaWrGsuXk4T5XhVkv4 ZCBz vHruTL6nqIVnFDhiWy8jcIjx cQuvFZ0qZCUqpikiz780LbGb m8mlUKEcdWXgKAprNCV4G77p b3I6 HTOoILUlDTG2bLR0nI2ivIgu bjogbGVmdDsgdmVydGljYWwt AEemQ358OAFdxZwgYqYzkDjy bnQg IByuBVw0Y7ViKbplyWH+PC90 MJJaCH39gJFksKCoz7btcCu4 JqYzBTCyCDF7nHeyUZnkl5Nv ZXIt H04fqWFia4G9KSDtsPzbgYSv LkFmpSO3kQ9qSUbucinyk2hz prfsMadxv9vmui01xB37R59t IHdp KAOaYGYhPYAtDKPbcNkoab8r bY5uAj1+FMOdrMH4mFC6uX9g RXWyAzI7FFoxF308OcLanBIb Pjxj j9sog7htmHh1OpN7FCMpqbDf tKkiMPG6o7NsJs43L46fCMpw XQYbSIOsOBHzZDPtgZewwu8n dG9w Ii8+LMGnwUD5xKI3qX1bCnAt MnL3RVdpR432PaKilWNwOsge Z31eJ8FgvBO+SMFcUid0FTFv dHls HP1njVVoMVswBs3jVRY0MdOt YmQkMHkuE6NpEJTsugmyvrif kNN1LOAlKIUsmK88Rz8zfYnf MTBw aOUOrE5jxgcju1lucetuYuTk PCCtQCi7LQw9TNNziYkcVbVi UGO6KoE5AEP7uPFnnV0waCai bjog dY1gL9JeBXMejgvhJr54yN4z ZaGiMlN3BVmtPqi+J6hBG32U TGJLU1hNTDg8E2RpUxk7KZNk dHls XY9kfIEsCBhfBg8cmQropZha CX5oFHXtmkeyHWHzyI8lHRTb oOBmaFcrQF9gKMZwuparz505 OiAx KKJ0CZSsyWPlV7SulL7zOxSq MVVkQWDgT2RmwIUbQVikA425 SHohObG7YAOitqUwW6BvSAQn aWdu XpY7k9C9Tl6cRW7dAF9pYGR7 AK20IO82lOKaa1D9oUN1R7Dw MQMwavloouognAD4UYFbMXDy aW47 tHCyWVsmQz7wi4Y9h735UHZd SFXftX05Qc1rxAurVKJdrIXI zA1ayykar5ebfxiyThKiZWGo MDt0 RVa4KJEodKqfDgSrAYM6ZoV0 JUX1uWYrbR6luTgckknfoP8x Oyc+BtpwHACexeL2H3KkMhg1 ZCBz nGoiDR2owUIdECmzGa0uvJwj lJocOU3jXKNhcbxnVEYjbU8u REJzrXKfsGoeEL9hDKDlhigx b250 HoKqLKU6IAQurFIfH2LxsF9r KxBhYBGrZXOuW7NihTPiRFic Q082SIwrEzU0OVBlzmEmF6Ut LWFs eOubAnU5y1L2Cq4AORgQJH06 UN67vHDdp6Q5kCK0D2GiMPKp ymqwacnxlRO6AYRyHPTkvR88 cGFk ANfaLo5ka0C6v789IAUhHRXi hS56Yw1csQwdQUIvvCMIoW5i ydzyd5zpoghjRuYoNQTmFNr3 ZXh0 SFTceCbhJgIbKMV1NtO3PVS5 sJZodF7tyBgkfflpqN2qTut+ Z2S6Z9DuDxozyLH+HM72MJAw ZT48 tDQmwUZbj0brtCh3LfJgBDMe GQW9aQjmTJfql4TfWZYaW66s hRYtl6W3PPAeyPgpoUKrJaHo bXB0 pQ1uHFsnbdzhk2ixdwenAons v3whxr59rD87L87lKTliDNXm SVCdUXYpSXTuuFhocw1baL3w Ii8+ WIBfxFH8aIH8cR9oZdYhOqH0 PHxbZ749RcRiwLQmQlzed0cj o1krcTx0TzYbXIHkedSlyAwq PSJ0 z4ZvKb74A78xWCndDLZoHGNs FNPsEADwtGsnev5ggB3vJa1+ JL0pr2grtm67hU30fBY+PHRk IHN0 lZorKSibWEUroA2pGRwpFbV4 OGJiDtHecQ29vRZxKZcfZu7u uIoadIbvEM6xFLFomfygk648 OiBi y1dwDAQgcZXzDEhqAVO9O92o f0B3ULBlPZRbZHV6mZD1yM9h bGlnbjogbGVmdDsgdmVydGlj YWwt YYmhY485JGYiuRcrBqXpoOKi F9uerfWZXH7kYqcckCT+PHRk IIM5fXuiAFevOTNclC2iDKSd Z2h0 AtUgXfJ0ZAftO3WrckT5WAZc iRSiZWVopZBIyR3moydzz0pl dbvvBiXrEXWbWUr3SLl1GSEu aWdu KwTwBLG3FaA0QPN7pCMgoP9a vHexkhztrU5qFvk+RklOOjwv dGQ+TAVoUOO1rSwsDSaiGZDf aW5n BDFcD8p7FuAnVwH3WLqkX2Xi bqF1EZMtgRNxURMaxUDCwG3u amkmk2jwnjqpMvJnESIoQYw2 ZXh0 IIKuxAwpVgBdZVT7QxQ6MSW8 cQCpnR3slCiimrosqO8fHdy+ TVJOOjwvdGQ+LLBuDHK0wFlq PSdw QDEevP5qNTJbF2f1GaVuEsP0 JYyjS6PdrtS7YWHqsWIrCUBq jYTUhV9ksfuqm3qqsotkZkEk MDAw AOd4KOn8OJQmsAlqVaUsZBI7 QpJ5SDD1lRLlwF0lmQdcojky yN3wHwb+BYG9EME7BU50OK62 L3Ry PjwvdGFibGU+PHRhYmxlIHdp HJSwOKdoVCSlWmFjrOvgAA1q Ct2rADDcZVYehItbuQUjSuDy b2xs YXB (more content not included)... [facility] Provider Orderson 03-27-2023 Provider Orders [id number] IFF [facility] RAD - MISCon 03-26-2023 [facility] [id number]: 127 Normal [facility] XR Abdomen Single View (KUB) on 03-26-2023 XR Abdomen Single View (KUB) _Findings: 3 mm calcification upper pole right kidney. 3 mm calcification lower pole left kidney. Gas and stool in colon. No diffuse small bowel dilatation. No mass effect. Marginal osteophytes visualized lumbar spine. Impression: Bilateral renal calculi. Final Signed (Electronic Signature): Elvin Chambers MD 03/26/23 12:07 p Technologist: Juaquin SUAREZ [facility] XR wrist LT min 3V*on 2021 XR wrist LT min 3V* [facility] [employer] Other XR wrist LT min 3V* [facility] [employer] Other XR wrist LT min 3V* [address] [place] [address] [employer] Other XR wrist LT min 3V* [place] [address] [facility] [employer] Other XR wrist LT min 3V* XRay Report [facility] [employer] Other XR wrist LT min 3V* Signed [facility] [employer] Other XR wrist LT min 3V* Patient: Daniele Perry MR#: [id number] [email or web address] Other XR wrist LT min 3V* 7 [email or web address] Other XR wrist LT min 3V* : 1945 Acct:[id number] [email or web address] Other XR wrist LT min 3V* Age/Sex: 76 / M ADM Date: 11/06/21 [email or web address] Other XR wrist LT min 3V* [place] [facility] Type : [facility] [address] [email or web address] Other XR wrist LT min 3V* Attending Dr: Trino Crain DO [email or web address] Other XR wrist LT min 3V* Ordering Provider: Trino Crain DO [email or web address] Other XR wrist LT min 3V* Date of Service: 11/06/21 [email or web address] Other XR wrist LT min 3V* XR/XR wrist LT min 3V*: Left wrist pain [email or web address] Other XR wrist LT min 3V* Copies to: Trino Crain DO [email or web address] Other XR wrist LT min 3V* Left wrist 4 views. 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 No known injury. [email or web address] Other XR wrist LT min 3V* COMPARISON: None. [email or web address] Other XR wrist LT min 3V* FINDINGS: No focal s oft tissue abnormality is seen. Chondrocalcinosis involving the TFCC. No acute [email or web address] Other XR wrist LT min 3V* bony process is note d. Degenerative changes of the carpal bones including the CMC joint of the [email or web address] Other XR wrist LT min 3V* thumb. [email or web address] Other XR wrist LT min 3V* X R/XR wrist LT min 3V* [email or web address] Other XR wrist LT min 3V* Impression: No acute bony process is seen. Degenerative change. [email or web address] Other XR wrist LT min 3V* Impression dictated by: Gil Romero Jr., DLuisaOLuisa11/06/2021 4:21 PM [email or web address] Other XR wrist LT min 3V* Dictation Location: [facility]--11 [email or web address] Other XR wrist LT min 3V* Transcribed By: PWS 11/06/21 162 [email or web address] Other XR wrist LT min 3V* Dictated By: Gil Romero Jr DO 11/06/21 [facility]0 [email or web address] Other XR wrist LT min 3V* Signed By: [email or web address] Other XR wrist LT min 3V* 11/06/21 1621 No rt [employer] Other CALCULI, URINARYon 0 2,8 Dihydroxyadenine Normal [facility] Comment on above: Performed By: #### C BC #### [facility] [address] [id number] Sb [place] Ammonium Acid Urate Normal [facility] Comment on above: Performed By: #### C BC #### [facility] [address], [place] [address] Sb [place] Bilirubin [Mass/Vol] Normal [facility] Comment on above: Performed By: #### C BC #### [facility] [address] [id number] Sb [place] Ca Oxalate Dihydrate 30 % Normal [facility] Comment on above: Performed By: #### C BC #### [facility] [address] [id number] S[place] CaHPO4 (Brushite) Normal The [facility] Comment on above: Performed By: #### C BC #### [facility] [address] [place] [address] Sb [place] Calcium Bilirubinate Normal [facility] Comment on above: Performed By: #### C BC #### [facility] [address] [place] [address] S[place] Calcium Carbonate Normal The [facility] Comment on above: Performed By: #### C BC #### [facility] [address] [place] [address] Sb [place] Calcium Oxalate Monohydrate 70 % Normal [facility] Comment on above: Performed By: #### C BC #### [facility] [address] [place] [address] S[place] Calcium Palmitate Normal The [facility] Comment on above: Performed By: #### C BC #### [facility] [address] [place] [address] S[place] Calcium Phosphate Normal The [facility] Comment on above: Performed By: #### C BC #### [facility] [address] [place] [address] S[place] Calcium Stearate Normal [facility] [place] [facility] Comment on above: Performed By: #### C BC #### [facility] [address] [place] [address] S[place] Carbonate Apatite Normal [facility] Comment on above: Performed By: #### C BC #### [facility] [address] [place] [address] [place] Cellular Material Normal The [facility] Comment on above: Performed By: #### C BC #### [facility] [address] [place] [address] S[place] Cholesterol [Mass/Vol] Normal [facility] Comment on above: Performed By: #### C BC #### [facility] [address] [place] [address] [place] Color (U) Black Normal [facility] Comment on above: Performed By: #### C BC #### [facility] [address] [address] [place] Comment Normal [facility] Comment on above: Performed By: #### C BC #### [facility] [address] [place] [address] S[place] Comment: Comment Normal [facility] Comment on above: Result Comment: Dillan kraft questions regarding Calculi Analysis contact [facility] at: [phone]. Performed By: #### C BC #### [facility] [address] [place] [address] [place] Composition Comment Normal [facility] Comment on above: Result Comment: Perc entage (Represents the % composition) Performed By: #### C BC #### [facility] [address] [place] [address] S[place] Cystine Normal [facility] Comment on above: Performed By: #### C BC #### [facility] [address] [place] [address] S[place] Disclaimer: Comment Normal [facility] Comment on above: Result Comment: This test was developed and its performance characteristics determined by [facility]. It has not been cleared or approved by the Food and Drug Administration. Performed By: #### C BC #### [facility] [address] [place] [address] [place] Dried Blood Normal [facility] Comment on above: Performed By: #### C BC #### [facility] [address] [place] [address] [place] Drug or Metabolite Normal The [facility] Comment on above: Performed By: #### C BC #### [facility] [address] [place] [address] [place] Hydroxyapatite Normal The [facility] Comment on above: Performed By: #### C BC #### [facility] [address] [place] [address] [place] Mg NH4 PO4 (Struvite) Normal [facility] Comment on above: Performed By: #### C BC #### [facility] [address] [place] [address] [place] MgHPO4 (Newberyite) Normal [facility] Comment on above: Performed By: #### C BC #### [facility] [address] [address] Bs [place] Other component(s) Normal [facility] Comment on above: Performed By: #### C BC #### [facility] [address] [address] [place] PDF . Normal [facility] Comment on above: Performed By: #### C BC #### [facility] [address] [address] [place] Photo Comment Normal [facility] Comment on above: Result Comment: Phot ograph will follow under a separate cover Performed By: #### C BC #### [facility] [address] [address] [place] Please note: Comment Normal [facility] Comment on above: Result Comment: Calc pee report will follow via computer, mail or tractor trailer moving van driver delivery. Performed By: #### C BC #### [facility] [address] [address] [place] Size 2x2 [facility] Comment on above: Result Comment: Mult iple pieces received. Dimensions of the largest piece reported. Performed By: #### C BC #### [facility] [address] [address] [place] Sodium (U) [Moles/Vol] [facility] Comment on above: Performed By: #### C BC #### [facility] [address] [address] [place] Source Comment Normal [facility] Comment on above: Result Comment: Not provided Performed By: #### C BC #### [facility] [address] [address] [place] Triamterene [facility] Comment on above: Performed By: #### C BC #### [facility] [address] [address] [place] Urate [Mass/Vol] [facility] Comment on above: Performed By: #### C BC #### [facility] [address] [place] [address] [place] Uric Acid Dihydrate Normal [facility] Comment on above: Performed By: #### C BC #### [facility] [address] [place] [address] [place] Weight 4 mg Normal [facility] Comment on above: Performed By: #### C BC #### [facility] [address] [place] [address] [place] Xanthine Normal [facility] Comment on above: Performed By: #### C BC #### [facility] [address] [place] [address] S[place] CBC AUTO DIFFon 04-07-2020 Basophils (Bld) [#/Vol] 0.1 103/ul Normal 0.0-0.1 [facility] Comment on above: Performed By: #### C BC #### [facility] [address] [place] [address] S[place] Basophils/100 WBC (Bld) 0.6 % Normal 0.2-2.0 [facility] Comment on above: Performed By: #### C BC #### [facility] [address] [place] [address] [place] Eosinophils (Bld) [#/Vol] 0.3 103/ul Normal 0.0-0.7 [facility] Comment on above: Performed By: #### C BC #### [facility] [address] [place] [address] [place] Eosinophils/100 WBC (Bld) 3.6 % Normal 0.9-7.0 [facility] Comment on above: Performed By: #### C BC #### [facility] [address] [place], [place] [id number] [place] Erythrocyte distribution width (RBC) [Ratio] 14.5 % Normal 11.0-15.0 [facility] Comment on above: Performed By: #### C BC #### [facility] [address] [place] [address] [place] Hematocrit (Bld) [Volume fraction] 54.1 % Critically high 42.0-54.0 [facility] Comment on above: Performed By: #### C BC #### [facility] [address] [place] [address] Sb Weinstein Hemoglobin (Bld) [Mass/Vol] 17.2 g/dL Normal 14.0-18.0 [facility] Comment on above: Performed By: #### C BC #### [facility] [address] [place] [address] Sbarabella Weinstein IG # 0.02 10e3/ul Normal 0.00-0.03 [facility] Comment on above: Performed By: #### C BC #### [facility] [address] [place] [address] Sb Weinstein IG % 0.2 % Normal 0.0-0.5 [facility] Comment on above: Performed By: #### C BC #### [facility] [address] [place] [address] Sb Weinstein Lymphocytes (Bld) [#/Vol] 2.7 103/ul Normal 1.2-3.8 [facility] Comment on above: Performed By: #### C BC #### [facility] [address] [place] [address] Sb Weinstein Lymphocytes/100 WBC (Bld) 32.0 % Normal 20.5-60.0 [facility] Comment on above: Performed By: #### C BC #### [facility] [address] [place] [address] Sb Weinstein MANUAL DIFF REQ NO Normal [facility] Comment on above: Performed By: #### C BC #### [facility] [address] [place], [place] [id number] Sb Weinstein MCH (RBC) [Entitic mass] 29.6 pg Normal 25.9-34.0 [facility] Comment on above: Performed By: #### C BC #### [facility] [address] [place] [address] Sb Weinstein MCHC (RBC) [Mass/Vol] 31.8 g/dL Normal 29.9-35.2 [facility] Comment on above: Performed By: #### C BC #### [facility] [address] [place] [address] S[place] MCV (RBC) [Entitic vol] 93.1 fL Normal 80.0-94.0 [facility] Comment on above: Performed By: #### C BC #### [facility] [address] [place], [place] [id number] Sb [place] Monocytes (Bld) [#/Vol] 0.9 103/ul Critically high 0.3-0.8 [facility] Comment on above: Performed By: #### C BC #### [facility] [address] [place], [place] [phone] Sb [place] Monocytes/100 WBC (Bld) 11.1 % Normal 1.7-12.0 [facility] Comment on above: Performed By: #### C BC #### [facility] [address] [place], [place] [phone] S[place] Neutrophils (Bld) [#/Vol] 4.3 103/ul Normal 1.4-6.5 [facility] Comment on above: Performed By: #### C BC #### [facility] [address] [place], [place] [id number] S[place] Neutrophils/100 WBC (Bld) 52.5 % Normal 43.0-75.0 [facility] Comment on above: Performed By: #### C BC #### [facility] [address] [place], [place] [id number] S[place] Platelet mean volume (Bld) [Entitic vol] 11.0 fL Normal 9.5-13.5 [facility] Comment on above: Performed By: #### C BC #### [facility] [address] [place], [place] [phone] S[place] Platelets (Bld) [#/Vol] 232 103/ul Normal 150-450 [facility] Comment on above: Performed By: #### C BC #### [facility] [address] [place], [place] [phone] [place] RBC (Bld) [#/Vol] 5.81 106/ul Normal 4.70-6.10 [facility] Comment on above: Performed By: #### C BC #### [facility] [address] [phone] Sbarabella Richardsonen WBC (Bld) [#/Vol] 8.3 103/ul Normal 4.0-11.0 The [facility] Comment on above: Performed By: #### C BC #### [facility] [address] [place] [address] Sbarabella Richardsonen PROF CHEM 8 (BAS METB)on Anion gap [Moles/Vol] 8.7 mmol/L Normal [facility] Comment on above: Performed By: #### B MP #### [facility] [address] [place] [address] [place] Calcium [Mass/Vol] 8.8 mg/dL Normal 8.4-10.2 [facility] Comment on above: Performed By: #### B MP #### [facility] [address] [place] [address] [place] Chloride [Moles/Vol] 104 mmol/L Normal 98-107 [facility] Comment on above: Performed By: #### B MP #### [facility] [address] [place] [address] [place] CO2 [Moles/Vol] 32.5 mmol/L Critically high 22.0-30.0 [facility] Comment on above: Performed By: #### B MP #### [facility] [address] [place] [address] [place] Creatinine [Mass/Vol] 1.21 mg/dL Normal 0.66-1.25 [facility] Comment on above: Performed By: #### B MP #### [facility] [address] [place], [place] [id number] [place] EGFR-AF RWANDAN >60 Normal >=60 [facility] [place] [facility] Comment on above: Performed By: #### B MP #### [facility] [address] [place] [address] [place] EGFR-NON AF RWANDAN 58 mL/min/1.73m2 Critically low >=60 [facility] Comment on above: Performed By: #### B MP #### [facility] [address], [place] [address] S[place] Glucose [Mass/Vol] 89 mg/dL Normal 74-106 [facility] Comment on above: Performed By: #### B MP #### [facility] [address] [id number] [place] Potassium [Moles/Vol] 4.2 mmol/L Normal 3.4-5.0 [facility] Comment on above: Performed By: #### B MP #### [facility] [address] [id number] [place] Sodium [Moles/Vol] 141 mmol/L Normal 137-145 [facility] Comment on above: Performed By: #### B MP #### [facility] [address] [id number] [place] Urea nitrogen [Mass/Vol] 15.0 mg/dL Normal 9.0-20.0 [facility] Comment on above: Performed By: #### B MP #### [facility] [address] [phone] Sbarabella Weinstein Urea nitrogen/Creatinine [Mass ratio] 12.4 mg/mg Normal [facility] Comment on above: Performed By: #### B MP #### [facility] [address] [id number] Sb Weinstein PROTIMEon 04-07-2020 INR Coag (PPP) [Relative time] 1.11 {INR} Normal [facility] Comment on above: Performed By: #### P T, PTT #### [facility] [address] [place], [place] [phone] [place] PT Coag (PPP) [Time] SEE BELOW Normal [facility] Comment on above: Result Comment: VENKATESH RED INR: 2.0 - 3.0 CONDITIONS NOT LISTED BELOW 2.5 - 3.5 FOR PROSTHETIC HEART VALVE REPLACEMENT 2.5 - 3.5 RECURRENT THROMBOSIS Performed By: #### P T, PTT #### [facility] [address], [place] [address] Sb [place] PT Coag (PPP) [Time] 11.5 s Normal 9.0-11.6 [facility] Comment on above: Performed By: #### P T, PTT #### [facility] [address] [place] [address] S[place] PT Coag (PPP) [Time] PLEASE NOTE: NORMAL RANGE CHANGE 06-24-2014 DUE TO REAGENT LOT CHANGE Normal [facility] Comment on above: Performed By: #### P T, PTT #### [facility] [address] [place] [address] Sb Weinstein PTTon 04-07-2020 aPTT Coag (Bld) [Time] 28.8 s Normal 22.3-36.2 [facility] Comment on above: Performed By: #### P T, PTT #### [facility] [address] [place] [address] S[place] aPTT Coag (Bld) [Time] PLEASE NOTE: NORMAL RANGE CHANGE 08-31-2015 DUE TO REAGENT LOT CHANGE Normal [facility] Comment on above: Performed By: #### P T, PTT #### [facility] [address] [place] [address] Sb Weinstein XR KUB 1 VIEWon 04-07-2020 XR KUB 1 VIEW EXAMINATION: XR KUB 1 VIEW HISTORY: Kidney stone COMPARISON: 03/10/2020 KUB 1 view FINDINGS: KIDNEY/URETER - RIGHT: No visible renal or ureteral calcifications. KIDNEY/URETER - LEFT: No visible renal or ureteral calcifications. PELVIS: No visible ureteral stones. Stable right pelvic calcifications favoring phleboliths. BOWEL: No abnormal dilation or deviation. BONES: No acute abnormality. OTHER: Negative. No abnormal gaseous collections. IMPRESSION: 1. No visible urinary tract calculi. Previously seen calcification projecting over the left kidney is no longer present. Electronically authenticated by: ELIZABETH PERALES Date: 2020-04-07 11:55 Normal [facility] CBC AUTO DIFFon 03-10-2020 Basophils (Bld) [#/Vol] 0.1 103/ul Normal 0.0-0.1 [facility] Comment on above: Performed By: #### C BC #### [facility] [address], [place] [address] Sb [place] Basophils/100 WBC (Bld) 0.6 % Normal 0.2-2.0 [facility] Comment on above: Performed By: #### C BC #### [facility] [address] [place], [place] [phone] Sb [place] Eosinophils (Bld) [#/Vol] 0.3 103/ul Normal 0.0-0.7 [facility] Comment on above: Performed By: #### C BC #### [facility] [address] [place], [place] [phone] Sb [place] Eosinophils/100 WBC (Bld) 4.1 % Normal 0.9-7.0 [facility] Comment on above: Performed By: #### C BC #### [facility] [address] [place], [place] [phone] Sb [place] Erythrocyte distribution width (RBC) [Ratio] 15.9 % Critically high 11.0-15.0 [facility] Comment on above: Performed By: #### C BC #### [facility] [address] [place], [place] [phone] Sb [place] Hematocrit (Bld) [Volume fraction] 57.1 % Critically high 42.0-54.0 [facility] Comment on above: Performed By: #### C BC #### [facility] [address] [place], [place] [address] Sb [place] Hemoglobin (Bld) [Mass/Vol] 18.0 g/dL Normal 14.0-18.0 [facility] Comment on above: Performed By: #### C BC #### [facility] [address] [place], [place] [address] Sb [place] IG # 0.03 10e3/ul Normal 0.00-0.03 [facility] Comment on above: Performed By: #### C BC #### [facility] [address] [place], [place] [phone] Sb [place] IG % 0.4 % Normal 0.0-0.5 [facility] Comment on above: Performed By: #### C BC #### [facility] [address], [place] [address] Sb [place] Lymphocytes (Bld) [#/Vol] 2.3 103/ul Normal 1.2-3.8 [facility] Comment on above: Performed By: #### C BC #### [facility] [address], [place] [address] Sb [place] Lymphocytes/100 WBC (Bld) 29.4 % Normal 20.5-60.0 [facility] Comment on above: Performed By: #### C BC #### [facility] [address], [place] [address] Sb [place] MANUAL DIFF REQ NO Normal [facility] Comment on above: Performed By: #### C BC #### [facility] [address] [place] [address] Sb [place] MCH (RBC) [Entitic mass] 29.0 pg Normal 25.9-34.0 [facility] Comment on above: Performed By: #### C BC #### [facility] [address] [place] [address] Sb [place] MCHC (RBC) [Mass/Vol] 31.5 g/dL Normal 29.9-35.2 [facility] Comment on above: Performed By: #### C BC #### [facility] [address] [place] [address] Sb [place] MCV (RBC) [Entitic vol] 91.9 fL Normal 80.0-94.0 [facility] Comment on above: Performed By: #### C BC #### [facility] [address], [place] [address] Sb [place] Monocytes (Bld) [#/Vol] 0.8 103/ul Normal 0.3-0.8 [facility] Comment on above: Performed By: #### C BC #### [facility] [address], [place] [address] Sb [place] Monocytes/100 WBC (Bld) 10.4 % Normal 1.7-12.0 [facility] Comment on above: Performed By: #### C BC #### [facility] [address], [place] [address] Sb [place] Neutrophils (Bld) [#/Vol] 4.3 103/ul Normal 1.4-6.5 [facility] Comment on above: Performed By: #### C BC #### [facility] [address], [place] [address] Sb [place] Neutrophils/100 WBC (Bld) 55.1 % Normal 43.0-75.0 [facility] Comment on above: Performed By: #### C BC #### [facility] [address] [place] [address] Sb [place] Platelet mean volume (Bld) [Entitic vol] 10.8 fL Normal 9.5-13.5 [facility] Comment on above: Performed By: #### C BC #### [facility] [facility] [address] [place] [address] Sb [place]in[place] Platelets (Bld) [#/Vol] 183 103/ul Normal 150-450 [facility] Comment on above: Performed By: #### C BC #### [facility] [address] [place] [address] Sb [place] RBC (Bld) [#/Vol] 6.21 106/ul Critically high 4.70-6.10 [facility] Comment on above: Performed By: #### C BC #### [facility] [address] [place] [address] Sb [place] WBC (Bld) [#/Vol] 7.8 103/ul Normal 4.0-11.0 [facility] Comment on above: Performed By: #### C BC #### [facility] [address] [place] [address] Sb Richardsonen PROF CHEM 8 (BAS METB)on Anion gap [Moles/Vol] 16.6 mmol/L Normal [facility] Comment on above: Performed By: #### B MP #### [facility] [address] [place] [address] Sb [place] Calcium [Mass/Vol] 9.2 mg/dL Normal 8.4-10.2 [facility] Comment on above: Performed By: #### B MP #### [facility] [address] [place] [address] Sb [place] Chloride [Moles/Vol] 102 mmol/L Normal 98-107 [facility] Comment on above: Performed By: #### B MP #### [facility] [address] [address] Sb [place] CO2 [Moles/Vol] 27.0 mmol/L Normal 22.0-30.0 [facility] [place] [facility] Comment on above: Performed By: #### B MP #### [facility] [address] [place] [address] Sb [place] Creatinine [Mass/Vol] 1.22 mg/dL Normal 0.66-1.25 [facility] Comment on above: Performed By: #### B MP #### [facility] [address] [place] [address] Sb [place] EGFR-AF RWANDAN >60 Normal >=60 [facility] [place] [facility] Comment on above: Performed By: #### B MP #### [facility] [address] [place] [address] Sb [place] EGFR-NON AF RWANDAN 58 mL/min/1.73m2 Critically low >=60 [facility] Comment on above: Performed By: #### B MP #### [facility] [address] [place] [address] Sb [place] Glucose [Mass/Vol] 100 mg/dL Normal 74-106 [facility] Comment on above: Performed By: #### B MP #### [facility] [address] [place] [address] Sb [place] Potassium [Moles/Vol] 4.6 mmol/L Normal 3.4-5.0 [facility] Comment on above: Performed By: #### B MP #### [facility] [address] [place] [address] Sb [place] Sodium [Moles/Vol] 141 mmol/L Normal 137-145 [facility] Comment on above: Performed By: #### B MP #### [facility] [address] [place] [address] Sb [place] Urea nitrogen [Mass/Vol] 15.0 mg/dL Normal 9.0-20.0 [facility] Comment on above: Performed By: #### B MP #### [facility] [address] [place] [address] Sb [place] Urea nitrogen/Creatinine [Mass ratio] 12.3 mg/mg Normal [facility] Comment on above: Performed By: #### B MP #### [facility] [address] [place] [address] Sb [place] PROTIMEon 03-10-2020 INR Coag (PPP) [Relative time] 1.03 {INR} Normal [facility] Comment on above: Performed By: #### P TT, PT #### [facility] [address] [place] [address] Sb [place] PT Coag (PPP) [Time] SEE BELOW Normal [facility] Comment on above: Result Comment: VENKATESH RED INR: 2.0 - 3.0 CONDITIONS NOT LISTED BELOW 2.5 - 3.5 FOR PROSTHETIC HEART VALVE REPLACEMENT 2.5 - 3.5 RECURRENT THROMBOSIS Performed By: #### P TT, PT #### [facility] [address] [place] [address] Sb [place] PT Coag (PPP) [Time] PLEASE NOTE: NORMAL RANGE CHANGE 06-24-2014 DUE TO REAGENT LOT CHANGE Normal [facility] Comment on above: Performed By: #### P TT, PT #### [facility] [address] [place] [address] Bs Corinna PT Coag (PPP) [Time] 10.7 s Normal 9.0-11.6 [facility] Comment on above: Performed By: #### P TT, PT #### [facility] [address] [place] [address] Sb [place] PTTon 03-10-2020 aPTT Coag (Bld) [Time] 27.2 s Normal 22.3-36.2 [facility] Comment on above: Performed By: #### P TT, PT #### [facility] [address] [place], [place] [id number] Sb [place] aPTT Coag (Bld) [Time] PLEASE NOTE: NORMAL RANGE CHANGE 08-31-2015 DUE TO REAGENT LOT CHANGE Normal [facility] Comment on above: Performed By: #### P TT, PT #### [facility] [address] [place], [place] [id number] Sb [place] XR KUB 1 VIEWon 03-10-2020 XR KUB 1 VIEW EXAMINATION: XR KUB 1 VIEW HISTORY: Pre-surgery evaluation COMPARISON: No relevant comparison available. FINDINGS: KIDNEY/URETER - RIGHT: Nephrolithiasis KIDNEY/URETER - LEFT: For lithiasis PELVIS: No visible ureteral calcifications. Any visible calcifications favor phleboliths. BOWEL: No abnormal dilation or deviation. BONES: No acute abnormality. Degenerative spondylosis with rotatory dextrocurvature OTHER: Negative. No abnormal gaseous collections. IMPRESSION: Bilateral nephrolithiasis Electronically authenticated by: NELA DOVE Date: 2020-03-10 09:41 Normal [facility] CALCULI, URINARYon 0 2,8 Dihydroxyadenine Normal [facility] Comment on above: Performed By: #### C ALCULI #### [facility] [address] [place] [address] Sb [place] Ammonium Acid Urate Normal [facility] Comment on above: Performed By: #### C ALCULI #### [facility] [address] [place] [address] Sb [place] Bilirubin [Mass/Vol] Normal [facility] Comment on above: Performed By: #### C ALCULI #### [facility] [address] [place] [address] Sb [place] Ca Oxalate Dihydrate 10 % Normal [facility] Comment on above: Performed By: #### C ALCULI #### [facility] [address] [place] [address] S[place] CaHPO4 (Brushite) Normal The [facility] Comment on above: Performed By: #### C ALCULI #### [facility] [address] [place] [address] Sb [place] Calcium Bilirubinate Normal [facility] Comment on above: Performed By: #### C ALCULI #### [facility] [address] [address] Sb [place] Calcium Carbonate Normal The [facility] Comment on above: Performed By: #### C ALCULI #### [facility] [address] [address] Sb [place] Calcium Oxalate Monohydrate 90 % Normal [facility] Comment on above: Performed By: #### C ALCULI #### [facility] [address] [address] Sb [place] Calcium Palmitate Normal The [facility] Comment on above: Performed By: #### C ALCULI #### [facility] [address] [address] Sb [place] Calcium Phosphate Normal The [facility] Comment on above: Performed By: #### C ALCULI #### [facility] [address] [place] [address] Sb [place] Calcium Stearate Normal [facility] Comment on above: Performed By: #### C ALCULI #### [facility] [address] [address] S[place] Carbonate Apatite Normal The [facility] Comment on above: Performed By: #### C ALCULI #### [facility] [address] [address] S[place] Cellular Material Normal The [facility] Comment on above: Performed By: #### C ALCULI #### [facility] [address] [address] Sb [place] Cholesterol [Mass/Vol] Normal [facility] Comment on above: Performed By: #### C ALCULI #### [facility] [address] [address] S[place] Color (U) Tiwari Normal [facility] Comment on above: Performed By: #### C ALCULI #### [facility] [address] [address] S[place] Comment [place] [facility] Comment on above: Performed By: #### C ALCULI #### [facility] [address] [address] Sb [place] Comment: Comment Normal [facility] Comment on above: Result Comment: Dillan kraft questions regarding Calculi Analysis contact [facility] at: [phone]. Performed By: #### C ALCULI #### [facility] [address] [address] S[place] Composition Comment Normal [facility] Comment on above: Result Comment: Perc entage (Represents the % composition) Performed By: #### C ALCULI #### [facility] [address] [address] S[place] Cystine Normal [facility] Comment on above: Performed By: #### C ALCULI #### [facility] [address] [address] Sb [place] Disclaimer: Comment Normal [facility] Comment on above: Result Comment: This test was developed and its performance characteristics determined by [facility]. It has not been cleared or approved by the Food and Drug Administration. Performed By: #### C ALCULI #### [facility] [address] [address] S[place] Dried Blood Normal [facility] Comment on above: Performed By: #### C ALCULI #### [facility] [address] [address] S[place] Drug or Metabolite Normal [facility] Comment on above: Performed By: #### C ALCULI #### [facility] [address] [address] S[place] Hydroxyapatite Normal [facility] Comment on above: Performed By: #### C ALCULI #### [facility] [address] [address] S[place] Mg NH4 PO4 (Struvite) Normal [facility] Comment on above: Performed By: #### C ALCULI #### [facility] [address] [address] Sb [place] MgHPO4 (Newberyite) Normal [facility] Comment on above: Performed By: #### C ALCULI #### [facility] [address] [address] Sb [place] Other component(s) Normal [facility] Comment on above: Performed By: #### C ALCULI #### [facility] [address] [address] Sb [place] PDF . Normal [facility] Comment on above: Performed By: #### C ALCULI #### [facility] [address] [address] Sb [place] Photo Comment Normal [facility] Comment on above: Result Comment: Phot ograph will follow under a separate cover Performed By: #### C ALCULI #### [facility] [address] [address] Sb [place] Please note: Comment Normal [facility] Comment on above: Result Comment: Calc pee report will follow via computer, mail or tractor trailer moving van driver delivery. Performed By: #### C ALCULI #### [facility] [address] [address] Sb [place] Size 4x3 Normal [facility] Comment on above: Result Comment: Sing le piece received. Performed By: #### C ALCULI #### [facility] [address] [address] Sb [place] Sodium (U) [Moles/Vol] [facility] Comment on above: Performed By: #### C ALCULI #### [facility] [address] [address] Sb [place] Source Comment Normal [facility] Comment on above: Result Comment: Left Ureter Performed By: #### C ALCULI #### [facility] [address] [address] Sb [place] Triamterene [facility] Comment on above: Performed By: #### C ALCULI #### [facility] [address] [address] Sb [place] Urate [Mass/Vol] [facility] Comment on above: Performed By: #### C ALCULI #### [facility] [address] [address] S[place] Uric Acid Dihydrate Normal [facility] Comment on above: Performed By: #### C ALCULI #### [facility] [address] [place], [place] [address] Sb Weinstein Weight 32 mg Normal [facility] Comment on above: Performed By: #### C ALCULI #### [facility] [address] [place], [place] [address] Sb Weinstein Xanthine Normal [facility] Comment on above: Performed By: #### C ALCULI #### [facility] [address] [place], [place] [address] Sb Weinstein Lipid Panelon 01-27-2019 Cholesterol in HDL mass conc 34 mg/dL Low 40-59 [facility] Comment on above: Result Comment: ATP III HDL Cholestrol Classification is low. Expected Values: Males: >55 = No Risk 35-55 = Moderate Risk <35 = High Risk Females: >65 = No Risk 45-65 = Moderate Risk <45 = High Risk NCEP Guidelines: Third Report February 2001 >59 = negative risk factor for CHD <40 = major risk factor for CHD Performed By: #### L IPID #### [facility] [address] [place] [address] Cholesterol in LDL mass conc 114 mg/dL Normal 0-129 [facility] Comment on above: Result Comment: ATP III LDL Classification is Near Optimal. Performed By: #### L IPID #### [facility] [address] [place] [address] Cholesterol mass conc 170 mg/dL Normal 0-199 [facility] Comment on above: Result Comment: ATP III Cholesterol classification is Desirable. Performed By: #### L IPID #### [facility] [address] [place] [address] Triglyceride mass conc 112 mg/dL Normal 0-150 [facility] Comment on above: Result Comment: ATP III Triglycerides Classification is Normal. Effective: 11/13/2018 New reference range for this analyte has been established. Performed By: #### L IPID #### [facility] [address] [place] [address] VITAMIN Don 01-27-2019 VITAMIN D 34.2 ng/mL Normal 30.0-100.0 [facility] Comment on above: Result Comment: (30- 100 ng/mL) Optimum Level This assay accurately quantifies the sum of vitamin D3, 25-Hydroxy and vitamin D2, 25-Hyroxy. Performed By: #### V ITD #### [facility] [address] [place] [address] Vitamin B12 and Folateon Cobalamin (Vitamin B12) mass conc 886 pg/mL Normal 232-1245 [facility] Comment on above: Performed By: #### B 12FO #### [facility] [address] [place] [address] Folate >20.0 Normal 7.3-26.1 [facility] Comment on above: Result Comment: As o f 16, the methodology has changed. Results from this methodology should not be compared with results from previous methodology. Performed By: #### B 12FO #### [facility] [address] [place] [address] Acetaminophenon 01-26-2019 Acetaminophen mass conc <5 Low 10-30 [facility] Comment on above: Performed By: #### A CETM #### [facility] [address] [place] [address] Alcoholon 01-26-2019 Ethanol mass conc mg/dL Normal [facility] Comment on above: Performed By: #### A LCOH #### [facility] [address] [place] [address] Ethanol mass conc Not indicated Normal [facility] Comment on above: Performed By: #### A LCOH #### [facility] [address] [place] [address] CBC With Platelet and Differ entialon 01-26-2019 Basophils #/vol (Bld) 0.1 10*3/uL Normal 0.0-0.2 [facility] Comment on above: Performed By: #### C BCWD #### [facility] [address] [place] [address] Basophils/100 WBC (Bld) 0.9 % Normal [facility] Comment on above: Performed By: #### C BCWD #### [facility] [address] [place] [address] Eosinophils #/vol (Bld) 0.2 10*3/uL Normal 0.0-0.7 [facility] Comment on above: Performed By: #### C BCWD #### [facility] [address] [place] [address] Eosinophils/100 WBC (Bld) 2.2 % Normal [facility] Comment on above: Performed By: #### C BCWD #### [facility] [address] [place] [address] Erythrocyte distribution width Ratio (RBC) 13.9 % Normal 11.5-14.5 [facility] Comment on above: Performed By: #### C BCWD #### [facility] [address] [place] [address] Hematocrit Volume Fraction (Bld) 55.4 % Critically high 42.0-52.0 [facility] Comment on above: Performed By: #### C BCWD #### [facility] [address] [place] [address] Hemoglobin mass conc (Bld) 18.3 g/dL Critically high 14.0-18.0 [facility] Comment on above: Performed By: #### C BCWD #### [facility] [address] [place] [address] Lymphocytes #/vol (Bld) 2.4 10*3/uL Normal 1.0-4.8 [facility] Comment on above: Performed By: #### C BCWD #### [facility] [address] [place] [address] Lymphocytes/100 WBC (Bld) 26.2 % Normal [facility] Comment on above: Performed By: #### C BCWD #### [facility] [address] [place] [address] MCH Entitic mass (RBC) 31.2 pg Normal 27.0-31.3 [facility] Comment on above: Performed By: #### C BCWD #### [facility] [address] [place] [address] MCHC mass conc (RBC) 33.0 % Normal 33.0-37.0 [facility] Comment on above: Performed By: #### C BCWD #### [facility] [address] [place] [address] MCV Entitic volume (RBC) 94.7 fL Normal 80.0-100.0 [facility] Comment on above: Performed By: #### C BCWD #### [facility] [address] [place] [address] Monocytes #/vol (Bld) 0.9 10*3/uL Critically high 0.2-0.8 [facility] Comment on above: Performed By: #### C BCWD #### [facility] [address] [place] [address] Monocytes/100 WBC (Bld) 9.6 % Normal [facility] Comment on above: Performed By: #### C BCWD #### [facility] [address] [place] [address] Neutrophils #/vol (Bld) 5.6 10*3/uL Normal 1.4-6.5 [facility] Comment on above: Performed By: #### C BCWD #### [facility] [address] [place] [address] Neutrophils/100 WBC (Bld) 61.1 % Normal [facility] Comment on above: Performed By: #### C BCWD #### [facility] [address] [place] [address] Platelets #/vol (Bld) 176 10*3/uL Normal 130-400 [facility] Comment on above: Performed By: #### C BCWD #### [facility] [address] [place] [address] RBC #/vol (Bld) 5.85 10*6/uL Normal 4.70-6.10 [facility] Comment on above: Performed By: #### C BCWD #### [facility] [address] [place] [address] WBC #/vol (Bld) 9.2 10*3/uL Normal 4.8-10.8 [facility] [place] Comment on above: Performed By: #### C BCWD #### [facility] [address] [place] [address] Comprehensive Metabolic Pane eladio 01-26-2019 Anion gap molar conc 12 mmol/L Normal 9-15 [facility] Comment on above: Result Comment: Effe ctive: 11/13/2018 New reference range for this analyte has been established. Performed By: #### C MP #### [facility] [address] [place] [address] Albumin mass conc 4.1 g/dL Normal 3.5-4.6 [facility] Comment on above: Result Comment: Effe ctive: 11/13/2018 New reference range for this analyte has been established. Performed By: #### C MP #### [facility] [address] [place] [address] ALP enzyme act/vol 77 U/L Normal 35-104 [facility] Comment on above: Performed By: #### C MP #### [facility] [address] [place] [address] ALT enzyme act/vol 28 U/L Normal 0-41 [facility] Comment on above: Performed By: #### C MP #### [facility] [address] [place] [address] AST enzyme act/vol 23 U/L Normal 0-40 [facility] Comment on above: Performed By: #### C MP #### [facility] [address] [place] [address] Bilirubin mass conc 0.8 mg/dL Critically high 0.2-0.7 [facility] Comment on above: Result Comment: Effe ctive: 11/13/2018 New reference range for this analyte has been established. Performed By: #### C MP #### [facility] [address] [place] [address] Calcium mass conc 9.3 mg/dL Normal 8.5-9.9 [facility] Comment on above: Result Comment: Effe ctive: 11/13/2018 New reference range for this analyte has been established. Performed By: #### C MP #### [facility] [address] [place] [address] Chloride molar conc 100 mmol/L Normal 95-107 [facility] Comment on above: Result Comment: Effe ctive: 11/13/2018 New reference range for this analyte has been established. Performed By: #### C MP #### [facility] [address] [place] [address] CO2 molar conc 26 mmol/L Normal 20-31 [facility] Comment on above: Result Comment: Effe ctive: 11/13/2018 New reference range for this analyte has been established. Performed By: #### C MP #### [facility] [address] [place] [address] Creatinine mass conc 1.02 mg/dL Normal 0.70-1.20 [facility] Comment on above: Performed By: #### C MP #### [facility] [address] [place] [address] GFR/1.73 sq M predicted among blacks MDRD vol rate/area (S/P/Bld) mL/min/{1.73_m2} Normal >60 [facility] Comment on above: Result Comment: >60 mL/min/1.73m2 EGFR, calc. for ages 18 and older using the MDRD formula (not corrected for weight), is valid for stable renal function. Performed By: #### C MP #### [facility] [address] [place] [address] GFR/1.73 sq M.predicted MDRD vol rate/area mL/min/{1.73_m2} Normal >60 [facility] Comment on above: Result Comment: >60 mL/min/1.73m2 EGFR, calc. for ages 18 and older using the MDRD formula (not corrected for weight), is valid for stable renal function. Performed By: #### C MP #### [facility] [address] [place] [address] Globulin mass conc (S) 2.7 g/dL Normal 2.3-3.5 [facility] Comment on above: Performed By: #### C MP #### [facility] [address] [place] [address] Glucose mass conc 94 mg/dL Normal 70-99 [facility] Comment on above: Result Comment: Effe ctive: 11/13/2018 New reference range for this analyte has been established. Performed By: #### C MP #### [facility] [address] [place] [address] Potassium molar conc 4.5 mmol/L Normal 3.4-4.9 [facility] Comment on above: Result Comment: Effe ctive: 11/13/2018 New reference range for this analyte has been established. Performed By: #### C MP #### [facility] [address] [place] [address] Protein mass conc 6.8 g/dL Normal 6.3-8.0 [facility] Comment on above: Result Comment: Effe ctive: 11/13/2018 New reference range for this analyte has been established. Performed By: #### C MP #### [facility] [address] [place] [address] Sodium molar conc 138 mmol/L Normal 135-144 [facility] Comment on above: Result Comment: Effe ctive: 11/13/2018 New reference range for this analyte has been established. Performed By: #### C MP #### [facility] [address] [place] [address] Urea nitrogen mass conc 13 mg/dL Normal 8-23 [facility] Comment on above: Performed By: #### C MP #### [facility] [address] [place] [address] Creatine Kinaseon 01-26-2019 CK enzyme act/vol 92 U/L Normal 0-190 [facility] Comment on above: Performed By: #### C PK #### [facility] [address] [place] [address] Culture, Urineon 01-26-2019 Culture, Urine ORDERED BY: CHASIDY BOLAÑOS SOURCE: Urine Clean Catch COLLECTED: 01/25/19 23:30 ANTIBIOTICS AT ROD.: RECEIVED : 01/25/19 23:46 Culture, Urine FINAL 01/27/19 07:51 No growth 24 hours Normal [facility] Comment on above: Performed By: #### C BCWD #### [facility] [address] [place] [address] Salicylateon 01-26-2019 Salicylate <0.3 Low 15.0-30.0 [facility] Comment on above: Result Comment: Anti -pyretic: 3.0-10.0 mg/dL Anti-inflammatory: 15.0-30.0 mg/dL Toxic: >30.0 mg/dL Performed By: #### S ALIC #### [facility] [address] [place] [address] TSH w/out Reflexon 9 Thyrotropin Qn 2.670 uIU/mL Normal 0.440-3.86 [facility] ([place], [place]) Comment on above: Result Comment: Effe ctive: 11/13/2018 New reference range for this analyte has been established. Performed By: #### T SH #### [facility] [address] [place] [address] UR Drugs of Abuse Panelon Drug Screen Comment see below Normal [facility] Comment on above: Result Comment: This method is a screening test to detect only these drug classes as part of a medical workup. Confirmatory testing by another method should be ordered if clinically indicated. Performed By: #### U DRGS #### [facility] [address] [place] [address] UR Amphetamines Screen Negative Normal Negative < [facility] Comment on above: Performed By: #### U DRGS #### [facility] [address] [place] [address] UR Barbiturates Screen Negative Normal Negative < [facility] Comment on above: Performed By: #### U DRGS #### [facility] [address] [place] [address] UR Benzo Screen Negative Normal Negative < [facility] Comment on above: Performed By: #### U DRGS #### [facility] [address] [place] [address] UR Cannabinoids Screen Negative Normal Negative < [facility] Comment on above: Performed By: #### U DRGS #### [facility] [address] [place] [address] UR Cocaine Screen Negative Normal Negative < [facility] Comment on above: Performed By: #### U DRGS #### [facility] [address] [place] [address] UR Opiates Screen Negative Normal Negative < [facility] Comment on above: Performed By: #### U DRGS #### [facility] [address] [place] [address] UR PCP Screen Negative Normal Negative < [facility] Comment on above: Performed By: #### U DRGS #### [facility] [address] [place] [address] Urinalysis, reflex to cultur caroline 01-26-2019 Bilirubin Ql (U) Negative Normal Negative [facility] ([place], [place]) Comment on above: Performed By: #### U AR #### [facility] [address] [place] [address] Clarity Nom (U) Clear Normal Clear [facility] Comment on above: Performed By: #### U AR #### [facility] [address] [place] [address] Color Nom (U) Yellow Normal Straw/Darke [facility] Comment on above: Performed By: #### U AR #### [facility] [address] [place] [address] Glucose Ql (U) Negative Normal Negative [facility] Comment on above: Performed By: #### U AR #### [facility] [address] [place] [address] Hemoglobin Ql (U) Negative Normal Negative [facility] Comment on above: Performed By: #### U AR #### [facility] [address] [place] [address] Ketones Ql (U) 15 mg/dL Abnormal Negative [facility] Comment on above: Performed By: #### U AR #### [facility] [address] [place] [address] Leukocyte esterase Test strip Ql (U) SMALL Abnormal Negative [facility] Comment on above: Performed By: #### U AR #### [facility] [address] [place] [address] Nitrite Ql (U) Negative Normal Negative [facility] Comment on above: Performed By: #### U AR #### [facility] [address] [place] [address] pH (U) 5.0 [pH] Normal 5.0-9.0 [facility] Comment on above: Performed By: #### U AR #### [facility] [address] [place] [address] Protein Ql (U) Negative Normal Negative [facility] Comment on above: Performed By: #### U AR #### [facility] [address] [place] [address] Specific gravity Relative Density (U) 1.022 Normal 1.005-1.03 [facility] Comment on above: Performed By: #### U AR #### [facility] [address] [place] [address] Urine Reflexed to Culture YES Normal [facility] Comment on above: Performed By: #### U AR #### [facility] [address] [place] [address] Urobilinogen Qn (U) 0.2 {Amadeo'U}/dL Normal < 2.0 [facility] Comment on above: Performed By: #### U AR #### [facility] [address] [place] [address] Urine Microscopicon 01-27-20 19 RBC #/vol (U) 0-2 Normal 0-2 [facility] Comment on above: Performed By: #### U AL #### [facility] [address] [place] [address] Bacteria LM.HPF #/area (Urine sed) Negative Normal [facility] Comment on above: Performed By: #### U AL #### [facility] [address] [place] [address] Urine Epithelial Cells Auto 3-5 Normal 0-5 [facility] Comment on above: Result Comment: Effe ctive 09/01/2018 Urinalysis microscopic performed using the automated methodology (AUWI analyzer). Performed By: #### U AL #### [facility] [address] [place] [address] Urine WBC Auto 3-5 Normal 0-5 [facility] Comment on above: Result Comment: Effe ctive 09/01/2018 Urinalysis microscopic performed using the automated methodology (AUWI analyzer). Performed By: #### U AL #### [facility] [address] [place] [address] Vital Signs Date Time Vital Sign Value Performing Clinician Facility 10-09-2023 13:47-0500 Blood Pressure Location Julio ANDREI [facility] 10-09-2023 13:47-0500 Diastolic blood pressure 65 mm[Hg] Julio FORBES [facility] 10-09-2023 13:47-0500 Heart rate 74 /min Julio FORBES [facility] 10-09-2023 13:47-0500 Systolic blood pressure 132 mm[Hg] Julio FORBES [facility] 06-27-2023 13:47-0400 Diastolic blood pressure 64 mm[Hg] [employer]IST[employer]C Amelia Eisenstein Work Phone: [facility] 06-27-2023 13:47-0400 Heart rate 56 /min [employer] Amelia Eisenstein Work Phone: [facility] 06-27-2023 13:47-0400 Respiratory rate 18 /min [employer]IST[employer]C Amelia Eisenstein Work Phone: [facility] 06-27-2023 13:47-0400 SaO2% (BldA) [Mass fraction] 97 % [employer]IST[employer] Amelia Eisenstein Work Phone: [facility] 06-27-2023 13:47-0400 Systolic blood pressure 100 mm[Hg] TRADE SPECIALIST[employer]C Amelia Eisenstein Work Phone: [facility] 06-27-2023 11:58-0400 Body height 187.96 cm TRADE SPECIALIST[employer]C Amelia Eisenstein Work Phone: [facility] 06-27-2023 11:58-0400 Body temperature 97.6 [degF] TRADE SPECIALIST-C Amelia Eisenstein Work Phone: [facility] 06-27-2023 11:58-0400 Body weight 81.64 kg TRADE SPECIALIST-C Amelia Eisenstein Work Phone: [facility] 04-04-2023 14:10-0400 Diastolic blood pressure 61 mm[Hg] TRADE SPECIALIST-C Amelia Eisenstein Work Phone: [facility] 04-04-2023 14:10-0400 Heart rate 64 /min TR[employer] SPECIALIST[employer]C Amelia Eisenstein Work Phone: [facility] 04-04-2023 14:10-0400 Respiratory rate 16 /min TRADE SPECIALIST[employer]C Amelia Eisenstein Work Phone: [facility] 04-04-2023 14:10-0400 SaO2% (BldA) [Mass fraction] 93 % TRADE SPECIALIST-C Amelia Eisenstein Work Phone: [facility] 04-04-2023 14:10-0400 Systolic blood pressure 95 mm[Hg] TRADE SPECIALIST-C Amelia Eisenstein Work Phone: [facility] 04-04-2023 11:52-0400 Body height 187.96 cm TRADE SPECIALIST-C Amelia Eisenstein Work Phone: [facility] 04-04-2023 11:52-0400 Body temperature 97.7 [degF] TRADE SPECIALIST-C Amelia Eisenstein Work Phone: [facility] 04-04-2023 11:52-0400 Body weight 79.37 kg TRADE SPECIALIST-C Amelia Qureshienstein Work Phone: [facility] 04-03-2023 12:58-0400 Blood Pressure Location Julio FORBES [facility] 04-03-2023 12:58-0400 Diastolic blood pressure 57 mm[Hg] Julio FORBES [facility] 04-03-2023 12:58-0400 Heart rate 55 /min Julio FORBES [facility] 04-03-2023 12:58-0400 Systolic blood pressure 88 mm[Hg] Julio FORBES [facility] 11-06-2021 16:30-0500 Body height 187.96 cm Trino Crain Other [email or web address] Other 11-06-2021 16:30-0500 Body mass index (BMI) [Ratio] 23.24 kg/m2 Trino Crain Other [email or web address] Other 11-06-2021 16:30-0500 Body weight 82.1 kg Trino Crain Other [email or web address] Other Encounters Encounter Date Encounter Type Care Provider Facility Start: 11-07-2023 ambulatory Julio R ANDREI Cloudi ty:[id number] Start: 10-12-2023 End: 10-12-2023 Emergency department patient visit Julio Peggy Forbes Facility:[facility] Start: 10-09-2023 End: 10-10-2023 ambulatory Julio FORBES Facility:[facility] Start: 10-09-2023 End: 10-09-2023 Patient encounter procedure Julio FORBES [facility] Start: 10-02-2023 End: 10-03-2023 ambulatory Julio Peggy Forbes Facility:[facility] Start: 09-07-2023 End: 09-07-2023 Emergency department patient visit Mohan Hogan Facility:[facility] Start: 06-28-2023 End: 06-29-2023 ambulatory Mirian Zazueta Facility:[facility] Start: 06-27-2023 End: 06-27-2023 ambulatory Imad Asaad Facility:[facility] Start: 06-27-2023 End: 06-27-2023 Admission to same day surgery center LUC Batista Work Phone: [facility] Work Phone: Start: 06-27-2023 End: 06-27-2023 ambulatory TRADE SPECIALIST-C Amelia Eisenstein Work Phone: [facility] Work Phone: Start: 04-08-2023 End: 04-08-2023 ambulatory Imad Asaad Other [email or web address] Other Start: 04-08-2023 Telephone encounter Imad Asaad [facility] Start: 04-04-2023 End: 04-04-2023 ambulatory Amelia Eisenstein Facility:[facility] Start: 04-04-2023 End: 04-04-2023 Admission to same day surgery center TRADE SPECIALIST-C Amelia Eisenstein Work Phone: [facility] Work Phone: Start: 04-04-2023 End: 04-04-2023 ambulatory TRADE SPECIALIST-C Amelia Eisenstein Work Phone: [facility] Work Phone: Start: 04-03-2023 End: 04-04-2023 ambulatory Julio FORBES Facility:[facility] Start: 04-03-2023 End: 04-03-2023 Patient encounter procedure Julio FORBES [facility] Start: 03-26-2023 End: 03-27-2023 ambulatory Julio Forbes Facility:[facility] Start: 11-16-2022 End: 11-16-2022 ambulatory Trino Crain Other [email or web address] Other Start: 11-16-2022 Office outpatient visit 15 minutes Trino Crain [facility] Start: 08-08-2022 End: 08-08-2022 ambulatory Trino Crain Other [email or web address] Other Start: 08-08-2022 Office outpatient visit 15 minutes Trino Crain [facility] Start: 04-25-2022 End: 04-25-2022 Lab Drop off Julio FORBES [facility] Start: 04-25-2022 End: 04-25-2022 Patient encounter procedure Julio FORBES [facility] Start: 11-07-2021 End: 11-07-2021 ambulatory Nela Alegria Other [email or web address] Other Start: 11-07-2021 Telephone encounter Nela Gabrielamalia [facility] Start: 11-06-2021 End: 11-06-2021 ambulatory Nela Airam Other [email or web address] Other Start: 11-06-2021 Office outpatient ne w 30 minutes Trino Crain [facility] Start: 11-06-2021 Telephone encounter Nela Gabrielamalia [facility] Start: 04-07-2020 End: 04-07-2020 Patient encounter procedure JULIO FORBES Facility:[facility] Start: 04-04-2020 Patient encounter procedure JULIORUBI FORBES Facility:[facility] Start: 03-10-2020 End: 03-10-2020 Patient encounter procedure JULIORUBI FORBES Facility:[facility] Start: 02-03-2020 End: 02-03-2020 Patient encounter procedure JULIORUBI FORBES Facility:[facility] Start: 01-26-2019 End: 01-26-2019 Emergency department patient visit BIRGIT BAIRES [facility] Procedures Date Procedure Procedure Detail Performing Clinician Start: 06-27-2023 Esophagogastroduodenoscopy [employer] SPECIALIST-C Amelia Batista Work Phone: Start: 04-04-2023 Esophagogastroduodenoscopy TRADE SPECIALIST-C Amelia Batista Work Phone: Start: 01-26-2019 Urnls dip stick/tablet rgnt auto w/o microscopy BIRGIT BAIRES Start: 01-26-2019 Assay of acetaminophen BIRGIT BAIRES Start: 01-26-2019 Assay of ethanol BIRGIT BAIRES Start: 01-26-2019 Assay of salicylate BIRGIT BAIRES Start: 01-26-2019 Assay of thyroid stimulating hormone tsh BIRGIT BAIRES Start: 01-26-2019 Blood count complete auto&auto difrntl wbc BIRGIT BAIRES Start: 01-26-2019 Comprehensive metabolic panel BIRGIT WHITE Start: 01-26-2019 Creatine kinase total BIRGIT BAIRES Start: 01-26-2019 Culture bacterial quanttative colony count urine BIRGIT BAIRES Start: 01-26-2019 Drug screen class list a BIRGIT BAIRES Start: 01-26-2019 Urinalysis microscopic only BIRGIT [place]I Extraction of wisdom tooth P stefani FORBES Nasal sinus structur e (body structure) Julio FORBES Tonsillectomy and adenoidectomy Julio FORBES Plan of Treatment Date Care Activity Detail Author Start: 06-27-2023 [facility] Start: 04-04-2023 [facility] Patient Education [facility] Work Phone: Immunizations Immunization Date Immunization Notes Care Provider Kena croft 07-04-2023 influenza virus vaccine, unspecified formulation Julio FORBES [facility] 03-08-2023 pneumococcal 20-vinita nt conjugate vaccine Julio FORBES [facility] 03-08-2023 SARS-CoV-2 (COVID-19 ) [id number] Julio FORBES [facility] 07-06-2022 influenza virus vaccine, unspecified formulation Julio FORBES [facility] 07-06-2022 SARS-CoV-2 (COVID-19 ) [id number] Julio FORBES [facility] 01-05-2022 SARS-CoV-2 mRNA (iuepsuxikjo-yuca-bsry ose) vaccine Julio FORBES [facility] 07-13-2021 zoster vaccine recombinant Julio FORBES [facility] 07-10-2021 influenza virus vaccine, unspecified formulation Julio FORBES [facility] 07-03-2021 SARS-CoV-2 (COVID-19 ) mRNA BNT-162b2 vax Julio FORBES [facility] 06-08-2021 COVID-19 mRNA, Comirnaty (Pfizer) TRADE SPECIALIST-C Amelai Eisenstein Work Phone: [facility] 11-24-2020 COVID-19 mRNA, Comirnaty (Pfizer) TRADE SPECIALIST-C Amelia Eisenstein Work Phone: [facility] Comment on above: Result Comment: 2022: [id number] 11-03-2020 COVID-19 mRNA, Comirnaty (Pfizer) TRADE SPECIALIST-C Amelia Eisenstein Work Phone: [facility] Comment on above: Result Comment: 2022: [id number] 10-22-2018 zoster vaccine recombinant Julio FORBES [facility] 05-20-2018 zoster vaccine recombinant Julio FORBES [facility] 07-31-2015 tetanus and diphther ia toxoids, adsorbed, preservative free, for adult use (2 Lf of tetanus toxoid and 2 Lf of diphtheria toxoid) Ujliorubi FORBES [facility] Payers Date Payer Category Payer Medicare [id number] 2019 Medicare [id number] 1960 Medicare [id number] 1960 Unknown [id number] 1945 Unknown [id number] 2.16.8 [id number] 1945 Unknown [id number] 2.16.84 [id number] 1944 Unknown [id number] 2.16.84 [id number] 1944 Unknown [id number] 2.16.84 [id number] 1944 Unknown [id number] 2.16.84 [id number] 1944 Unknown [id number] 2.16.8 [id number] 1944 Unknown [id number] 2.16.8 [id number] 1944 Unknown [id number] 2.16.8 [id number] 1944 Unknown [id number] 2.16.8 [id number] 1944 Unknown [id number] 2.16.8 [id number] 1944 Unknown [id number] 2.16.8 [id number] 1944 Unknown [id number] 2.16.8 [id number] Self-pay Self Pay [id number] Social History Date Type Detail Facility Sex Assigned At [email or web address] Other Start: 03-22-2021 End: 10-09-2023 Tobacco smoking status Ex-smoker (finding) [facility] Tobacco smoking status Never [facility] Start: 1945 Sex Assigned At Male [place] Goals Date Patient Goal Desired Activity /State Functional Status Date Assessment Result Facility 10-09-2023 Functional Status N/A [facility] 04-03-2023 Functional Status N/A [facility] Clinical Notes 11-06-2021 to 10-12-2023 Note Date & Type Note Facility 10-12-2023 Note Education Materials Urology Kidney Stones Kidney stones are rock-like masses that form inside of the kidneys. Kidneys are organs that make pee (urine). A kidney stone may move into other parts of the urinary tract, including: ? The tubes that connect the kidneys to the bladder (ureters). ? The bladder. ? The tube that carries urine out of the body (urethra). Kidney stones can cause very bad pain and can block the flow of pee. The stone usually leaves your body (passes) through your pee. You may need to have a doctor take out the stone. What are the causes? Kidney stones may be caused by: ? A condition in which certain glands make too much parathyroid hormone (primary hyperparathyroidism). ? A buildup of a type of crystals in the bladder made of a chemical called uric acid. The body makes uric acid when you eat certain foods. ? Narrowing (stricture) of one or both of the ureters. ? A kidney blockage that you were born with. ? Past surgery on the kidney or the ureters, such as gastric bypass surgery. What increases the risk? You are more likely to develop this condition if: ? You have had a kidney stone in the past. ? You have a family history of kidney stones. ? You do not drink enough water. ? You eat a diet that is high in protein, salt (sodium), or sugar. ? You are overweight or very overweight (obese). What are the signs or symptoms? Symptoms of a kidney stone may include: ? Pain in the side of the belly, right below the ribs (flank pain). Pain usually spreads (radiates) to the groin. ? Needing to pee often or right away (urgently). ? Pain when going pee (urinating). ? Blood in your pee (hematuria). ? Feeling like you may vomit (nauseous). ? Vomiting. ? Fever and chills. How is this treated? Treatment depends on the size, location, and makeup of the kidney stones. The stones will often pass out of the body through peeing. You may need to: ? Drink more fluid to help pass the stone. In some cases, you may be given fluids through an IV tube put into one of your veins at the hospital. ? Take medicine for pain. ? Make changes in your diet to help keep kidney stones from coming back. Sometimes, medical procedures are needed to remove a kidney stone. This may involve: ? A procedure to break up kidney stones using a beam of light (laser) or shock waves. ? Surgery to remove the kidney stones. Follow these instructions at home: Medicines ? Take cbcq-ubq-efvxrxl and prescription medicines only as told by your doctor. ? Ask your doctor if the medicine prescribed to you requires you to avoid driving or using heavy machinery. Eating and drinking ? Drink enough fluid to keep your pee pale yellow. You may be told to drink at least 8?10 glasses of water each day. This will help you pass the stone. ? If told by your doctor, change your diet. This may include: ? Limiting how much salt you eat. ? Eating more fruits and vegetables. ? Limiting how much meat, poultry, fish, and eggs you eat. ? Follow instructions from your doctor about eating or drinking restrictions. General instructions ? Collect pee samples as told by your doctor. You may need to collect a pee sample: ? 24 hours after a stone comes out. ? 8?12 weeks after a stone comes out, and every 6?12 months after that. ? Strain your pee every time you pee (urinate), for as long as told. Use the strainer that your doctor recommends. ? Do not throw out the stone. Keep it so that it can be tested by your doctor. ? Keep all follow-up visits as told by your doctor. This is important. You may need follow-up tests. How is this prevented? To prevent another kidney stone: ? Drink enough fluid to keep your pee pale yellow. This is the best way to prevent kidney stones. ? Eat healthy foods. ? Avoid certain foods as told by your doctor. You may be told to eat less protein. ? Stay at a healthy weight. Where to find more information ? National Kidney Foundation (NKF): www.kidney.org ? [employer] (UCF): www.urologyhealth.org Contact a doctor if: ? You have pain that gets worse or does not get better with medicine. Get help right away if: ? You have a fever or chills. ? You get very bad pain. ? You get new pain in your belly (abdomen). ? You pass out (faint). ? You cannot pee. Summary ? Kidney stones are rock-like masses that form inside of the kidneys. ? Kidney stones can cause very bad pain and can block the flow of pee. ? The stones will often pass out of the body through peeing. ? Drink enough fluid to keep your pee pale yellow. This information is not intended to replace advice given to you by your health care provider. Make sure you discuss any questions you have with your health care provider. Document Revised: 05/28/2022 Document Reviewed: 05/28/2022 [email or web address] Patient Education ? 2022 [employer]. [facility]09[facility]20[facility] Patient Education 10/09/2023 14:27:30 Lithotripsy, Care After Lithotripsy, Care After This sheet gives you information about how to care for yourself after your procedure. Your health care provider may also give you more specific instructions. If you have problems or questions, contact your health care provider. What can I expect after the procedure? After the procedure, it is common to have: Some blood in your urine. This should only last for a few days. Soreness in your back, sides, or upper abdomen for a few days. Blotches or bruises on the area where the shock wave entered the skin. Pain, discomfort, or nausea when pieces (fragments) of the kidney stone move through the tube that carries urine from the kidney to the bladder (ureter). Stone fragments may pass soon after the procedure, but they may continue to pass for up to 4 8 weeks. ?If you have severe pain or nausea, contact your health care provider. This may be caused by a large stone that was not broken up, and this may mean that you need more treatment. Some pain or discomfort during urination. Some pain or discomfort in the lower abdomen or (in men) at the base of the penis. Follow these instructions at home: Medicines Take mnps-bee-xnzszlu and prescription medicines only as told by your health care provider. If you were prescribed an antibiotic medicine, take it as told by your health care provider. Do not stop taking the antibiotic even if you start to feel better. Ask your health care provider if the medicine prescribed to you requires you to avoid driving or using machinery. Eating and drinking Drink enough fluid to keep your urine pale yellow. This helps any remaining pieces of the stone to pass. It can also help prevent new stones from forming. Eat plenty of fresh fruits and vegetables. Follow instructions from your health care provider about eating or drinking restrictions. You may be instructed to: ?Reduce how much salt (sodium) you eat or drink. Check ingredients and nutrition facts on packaged foods and beverages to see how much sodium they contain. ?Reduce how much meat you eat. Eat the recommended amount of calcium for your age and gender. Ask your health care provider how much calcium you should have. General instructions Get plenty of rest. Return to your normal activities as told by your health care provider. Ask your health care provider what activities are safe for you. Most people can resume normal activities 1 2 days after the procedure. If you were given a sedative during the procedure, it can affect you for several hours. Do not drive or operate machinery until your health care provider says that it is safe. Your health care provider may direct you to lie in a certain position (postural drainage) and tap firmly (percuss) over your kidney area to help stone fragments pass. Follow instructions as told by your health care provider. If directed, strain all urine through the strainer that was provided by your health care provider. ?Keep all fragments for your health care provider to see. Any stones that are found may be sent to a medical lab for examination. The stone may be as small as a grain of salt. Keep all follow-up visits as told by your health care provider. This is important. Contact a health care provider if: You have a fever or chills. You have nausea that is severe or does not go away. You have any of these urinary symptoms: ?Blood in your urine for longer than your health care provider told you to expect. ?Urine that smells bad or unusual. ?Feeling a strong urge to urinate after emptying your bladder. ?Pain or burning with urination that does not go away. ?Urinating more often than usual and this does not go away. You have a stent and it comes out. Get help right away if: You have severe pain in your back, sides, or upper abdomen. You have any of these urinary symptoms: ?Severe pain while urinating. ?More blood in your urine or having blood in your urine when you did not before. ?Passing blood clots in your urine. ?Passing only a small amount of urine or being unable to pass any urine at all. You have severe nausea that leads to persistent vomiting. You faint. Summary After this procedure, it is common to have some pain, discomfort, or nausea when pieces (fragments) of the kidney stone move through the tube that carries urine from the kidney to the bladder (ureter). If this pain or nausea is severe, however, you should contact your health care provider. Return to your normal activities as told by your health care provider. Ask your health care provider what activities are safe for you. Drink enough fluid to keep your urine pale yellow. This helps any remaining pieces of the stone to pass, and it can help prevent new stones from forming. If directed, strain your urine and keep all fragments for your health care provider to see. Fragments or stones may be as small as a grain of salt. Get help right away if you have severe pain in your back, sides, or upper abdomen, or if you have severe pain while urinating. This information is not intended to replace advice given to you by your health care provider. Make sure you discuss any questions you have with your health care provider. Document Revised: 08/20/2022 Document Reviewed: 05/28/2022 [email or web address] Patient Education 2022 [email or web address] 10/09/2023 14:26:16 Lithotripsy Lithotripsy Lithotripsy is a treatment that can help break up kidney stones that are too large to pass on their own. This is a nonsurgical procedure that crushes a kidney stone with shock waves. These shock waves pass through your body and focus on the kidney stone. They cause the kidney stone to break up into smaller pieces while it is still in the urinary tract. The smaller pieces of stone can pass more easily out of your body in the urine. Tell a health care provider about: Any allergies you have. All medicines you are taking, including vitamins, herbs, eye drops, creams, and rlqq-ahm-zvurrip medicines. Any problems you or family members have had with anesthetic medicines. Any blood disorders you have. Any surgeries you have had. Any medical conditions you have. Whether you are or may be . What are the risks? Generally, this is a safe procedure. However, problems may occur, including: Infection. Bleeding from the kidney. Bruising of the kidney or skin. Scarring of the kidney, which can lead to: ?Increased blood pressure. ?Poor kidney function. ?Return (recurrence) of kidney stones. Damage to other structures or organs, such as the liver, colon, spleen, or pancreas. Blockage (obstruction) of the tube that carries urine from the kidney to the bladder (ureter). Failure of the kidney stone to break into pieces (fragments). What happens before the procedure? Staying hydrated Follow instructions from your health care provider about hydration, which may include: Up to 2 hours before the procedure you may continue to drink clear liquids, such as water, clear fruit juice, black coffee, and plain tea. Eating and drinking restrictions Follow instructions from your health care provider about eating and drinking, which may include: 8 hours before the procedure stop eating heavy meals or foods, such as meat, fried foods, or fatty foods. 6 hours before the procedure stop eating light meals or foods, such as toast or cereal. 6 hours before the procedure stop drinking milk or drinks that contain milk. 2 hours before the procedure stop drinking clear liquids. Medicines Ask your health care provider about: Changing or stopping your regular medicines. This is especially important if you are taking diabetes medicines or blood thinners. Taking medicines such as aspirin and ibuprofen. These medicines can thin your blood. Do not take these medicines unless your health care provider tells you to take them. Taking refr-xtm-zdjrfov medicines, vitamins, herbs, and supplements. Tests You may have tests, such as: Blood tests. Urine tests. Imaging tests, such as a CT scan. General instructions Plan to have someone take you home from the hospital or clinic. If you will be going home right after the procedure, plan to have someone with you for 24 hours. Ask your health care provider what steps will be taken to help prevent infection. These may include washing skin with a germ-killing soap. What happens during the procedure? An IV will be inserted into one of your veins. You will be given one or more of the following: ?A medicine to help you relax (sedative). ?A medicine to make you fall asleep (general anesthetic). A water-filled cushion may be placed behind your kidney or on your abdomen. In some cases, you may be placed in a tub of lukewarm water. Your body will be positioned in a way that makes it easy to target the kidney stone. An X-ray or ultrasound exam will be done to locate your stone. Shock waves will be aimed at the stone. If you are awake, you may feel a tapping sensation as the shock waves pass through your body. A flexible tube with holes in it (stent) may be placed in the ureter. This will help keep urine flowing from the kidney if the fragments of the stone have been blocking the ureter. The procedure may vary among health care providers and hospitals. What happens after the procedure? You may have an X-ray to see whether the procedure was able to break up the kidney stone and how much of the stone has passed. If large stone fragments remain after treatment, you may need to have a second procedure at a later time. Your blood pressure, heart rate, breathing rate, and blood oxygen level will be monitored until you leave the hospital or clinic. You may be given antibiotics or pain medicine as needed. If a stent was placed in your ureter during surgery, it may stay in place for a few weeks. You may need to strain your urine to collect pieces of the kidney stone for testing. You will need to drink plenty of water. If you were given a sedative during the procedure, it can affect you for several hours. Do not drive or operate machinery until your health care provider says that it is safe. Summary Lithotripsy is a treatment that can help break up kidney stones that are too large to pass on their own. Lithotripsy is a nonsurgical procedure that crushes a kidney stone with shock waves. Generally, this is a safe procedure. However, problems may occur, including damage to the kidney or other organs, infection, or obstruction of the tube that carries urine from the kidney to the bladder (ureter). You may have a stent placed in your ureter to help drain your urine. This stent may stay in place for a few weeks. After the procedure, you will need to drink plenty of water. You may be asked to strain your urine to collect pieces of the kidney stone for testing. This information is not intended to replace advice given to you by your health care provider. Make sure you discuss any questions you have with your health care provider. Document Revised: 08/20/2022 Document Reviewed: 05/28/2022 [employer] Patient Education 2022 [employer]. Follow Up Care 04/03/2023 13:24:26 With:ANDREI WEEKS, Julio Woods, URL Address: [facility] [address], [place] [address]- When: Unknown [facility] 09-09-2023 Note [id number] 09-07-2023 Note Education Materials Dentistry Dental Caries, Adult Dental caries are spots of decay (cavities) in teeth. They are in the outer layer of your tooth (enamel). Treat them as soon as you can. If they are not treated, they can spread decay and lead to painful infection. What are the causes? This condition is caused by acid that is produced when bacteria in your mouth break down sugary foods and liquids. What increases the risk? This condition is more likely to develop in people who: ? Drink a lot of sugary liquids. ? Eat a lot of sweets and carbohydrates. ? Drink water that does not have fluoride. ? Do not clean their teeth regularly. ? Take medicines that decrease saliva. What are the signs or symptoms? Symptoms of this condition include: ? White, brown, or black spots on the teeth. ? Pain as the decay goes deeper into the tooth. ? Swelling or bleeding in the gums. How is this treated? This condition is treated with a procedure to remove decay and to restore the tooth. Follow these instructions at home: ? Take good care of your mouth and teeth. This keeps them healthy. ? Colmar your teeth 2 times a day. Use toothpaste with fluoride in it. ? Floss your teeth once a day. ? If your dentist prescribed an antibiotic medicine, take it as told. Do not stop taking the antibiotic even if your condition gets better. ? Keep all follow-up visits as told by your dentist. This is important. This includes all cleanings. How is this prevented? ? To prevent dental caries: ? Colmar your teeth every morning and night. Use fluoride toothpaste. ? Floss your teeth once a day. ? Get regular dental cleanings. ? If told by your dentist: ? Wash your mouth with prescription mouthwash (chlorhexidine). ? Put topical fluoride on your teeth. ? Drink water with fluoride in it. ? Drink water instead of sugary drinks. ? Eat healthy meals and snacks. ? Have fluoride treatments in the dentist's office and sealants put on your teeth, if told by your dentist. Contact a doctor if: ? You have symptoms of tooth decay. Summary ? Dental caries are spots of decay (cavities) in teeth. It is important to treat this as soon as you see them. ? This condition is caused by an acid that comes when sugar breaks down in your mouth. ? To prevent this condition, brush your teeth often and have regular dental cleanings. ? Take an antibiotic to treat an infection, if told by your dentist. Do not stop taking the antibiotic even if your condition gets better. ? Have regular dental cleanings and keep all follow-up visits. This information is not intended to replace advice given to you by your health care provider. Make sure you discuss any questions you have with your health care provider. Document Revised: 09/09/2020 Document Reviewed: 09/09/2020 [employer] Patient Education ? 2022 [employer]. [facility] 06-27-2023 Procedure note [facility] 04-04-2023 Procedure note [facility] 04-03-2023 Hospital Discharg e instructions Patient Education 04/03/2023 12:03:59 Dietary Guidelines to Help Prevent Kidney Stones Dietary Guidelines to Help Prevent Kidney Stones Kidney stones are deposits of minerals and salts that form inside your kidneys. Your risk of developing kidney stones may be greater depending on your diet, your lifestyle, the medicines you take, and whether you have certain medical conditions. Most people can lower their chances of developing kidney stones by following the instructions below. Your dietitian may give you more specific instructions depending on your overall health and the type of kidney stones you tend to develop. What are tips for following this plan? Reading food labels Choose foods with no salt added or low-salt labels. Limit your salt (sodium) intake to less than 1,500 mg a day. Choose foods with calcium for each meal and snack. Try to eat about 300 mg of calcium at each meal. Foods that contain 200 500 mg of calcium a serving include: ?8 oz (237 mL) of milk, alvigmb-fgttayjxtqkt-ejfnf milk, and calcium-fortifiedfruit juice. Calcium-fortified means that calcium has been added to these drinks. ?8 oz (237 mL) of kefir, yogurt, and soy yogurt. ?4 oz (114 g) of tofu. ?1 oz (28 g) of cheese. ?1 cup (150 g) of dried figs. ?1 cup (91 g) of cooked broccoli. ?One 3 oz (85 g) can of sardines or mackerel. Most people need 1,000 1,500 mg of calcium a day. Talk to your dietitian about how much calcium is recommended for you. Shopping Buy plenty of fresh fruits and vegetables. Most people do not need to avoid fruits and vegetables, even if these foods contain nutrients that may contribute to kidney stones. When shopping for convenience foods, choose: ?Whole pieces of fruit. ?Pre-made salads with dressing on the side. ?Low-fat fruit and yogurt smoothies. Avoid buying frozen meals or prepared deli foods. These can be high in sodium. Look for foods with live cultures, such as yogurt and kefir. Choose high-fiber grains, such as whole-wheat breads, oat bran, and wheat cereals. Cooking Do not add salt to food when cooking. Place a salt shaker on the table and allow each person to add his or her own salt to taste. Use vegetable protein, such as beans, textured vegetable protein (TVP), or tofu, instead of meat in pasta, casseroles, and soups. Meal planning Eat less salt, if told by your dietitian. To do this: ?Avoid eating processed or pre-made food. ?Avoid eating fast food. Eat less animal protein, including cheese, meat, poultry, or fish, if told by your dietitian. To do this: ?Limit the number of times you have meat, poultry, fish, or cheese each week. Eat a diet free of meat at least 2 days a week. ?Eat only one serving each day of meat, poultry, fish, or seafood. ?When you prepare animal protein, cut pieces into small portion sizes. For most meat and fish, one serving is about the size of the palm of your hand. Eat at least five servings of fresh fruits and vegetables each day. To do this: ?Keep fruits and vegetables on hand for snacks. ?Eat one piece of fruit or a handful of berries with breakfast. ?Have a salad and fruit at lunch. ?Have two kinds of vegetables at dinner. Limit foods that are high in a substance called oxalate. These include: ?Spinach (cooked), rhubarb, beets, sweet potatoes, and [place]rugu[place] chard. ?Peanuts. ?Potato chips, saudi arabian fries, and baked potatoes with skin on. ?Nuts and nut products. ?Chocolate. If you regularly take a diuretic medicine, make sure to eat at least 1 or 2 servings of fruits or vegetables that are high in potassium each day. These include: ?Avocado. ?Banana. ?Poc[place]ontas, prune, carrot, or tomato juice. ?Baked potato. ?Cabbage. ?Beans and split peas. Lifestyle Drink enough fluid to keep your urine pale yellow. This is the most important thing you can do. Spread your fluid intake throughout the day. If you drink alcohol: ?Limit how much you use to: ?0 1 drink a day for women who are not . ?0 2 drinks a day for men. ?Be aware of how much alcohol is in your drink. In the [place] one drink equals one 12 oz bottle of beer (355 mL), one 5 oz glass of wine (148 mL), or one 1 oz glass of hard liquor (44 mL). Lose weight if told by your health care provider. Work with your dietitian to find an eating plan and weight loss strategies that work best for you. General information Talk to your health care provider and dietitian about taking daily supplements. You may be told the following depending on your health and the cause of your kidney stones: ?Not to take supplements with vitamin C. ?To take a calcium supplement. ?To take a daily probiotic supplement. ?To take other supplements such as magnesium, fish oil, or vitamin B6. Take iiii-olj-xjzheqc and prescription medicines only as told by your health care provider. These include supplements. What foods should I limit? Limit your intake of the following foods, or eat them as told by your dietitian. Vegetables Spinach. Rhubarb. Beets. Canned vegetables. Pickles. Olives. Baked potatoes with skin. Grains Wheat bran. Baked goods. Salted crackers. Cereals high in sugar. Meats and other proteins Nuts. Nut butters. Large portions of meat, poultry, or fish. Salted, precooked, or cured meats, such as sausages, meat loaves, and hot dogs. Dairy Cheese. Beverages Regular soft drinks. Regular vegetable juice. Seasonings and condiments Seasoning blends with salt. Salad dressings. Soy sauce. Ketchup. Barbecue sauce. Other foods Canned soups. Canned pasta sauce. Casseroles. Pizza. Lasagna. Frozen meals. Potato chips. Lao fries. The items listed above may not be a complete list of foods and beverages you should limit. Contact a dietitian for more information. What foods should I avoid? Talk to your dietitian about specific foods you should avoid based on the type of kidney stones you have and your overall health. Fruits Grapefruit. The item listed above may not be a complete list of foods and beverages you should avoid. Contact a dietitian for more information. Summary Kidney stones are deposits of minerals and salts that form inside your kidneys. You can lower your risk of kidney stones by making changes to your diet. The most important thing you can do is drink enough fluid. Drink enough fluid to keep your urine pale yellow. Talk to your dietitian about how much calcium you should have each day, and eat less salt and animal protein as told by your dietitian. This information is not intended to replace advice given to you by your health care provider. Make sure you discuss any questions you have with your health care provider. Document Revised: 06/04/2022 Document Reviewed: 06/04/2022 [email or web address] Patient Education 2022 [employer]. 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 With his last visit we did a cortisone injection which performed really well for him. At this juncture we have discussed the findings and diagnosis as well as personally reviewed appropriate imaging and performed interpretation of related testing and examination with the patient in office today. He wants to repeat the injection again today as he had 3 months of relief. I feel this is reasonable. Under sterile technique patient's left wrist was injected at the TFCC with 1 cc of Marcaine 1 cc of Kenalog. He tolerated this well. He can continue to use his brace as needed. We will plan for follow-up as needed. The patient has been involved in our cooperative treatment plan and agrees to move forward with treatment at this time. We performed a cortisone injection into the wrist joint under sterile technique. The patient tolerated this well without complication . We discussed that the finger may feel numb and tingle for hours after this injection. 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 With his last visit we did a cortisone injection which performed really well for him. At this juncture we have discussed the findings and diagnosis as well as personally reviewed appropriate imaging and performed interpretation of related testing and examination with the patient in office today. He wants to repeat the injection again today. Under sterile technique patient's left wrist was injected at the TFCC with 1 cc of Marcaine 1 cc of Kenalog. He tolerated this well. We have also given him a wrist brace to use if he has ongoing pain exacerbations. We will plan for follow-up as needed. The patient has been involved in our cooperative treatment plan and agrees to move forward with treatment at this time. We performed a 1/1cc marcaine / kenalog cortisone injection into the left wrist under sterile technique. Patient tolerated the injection well without adverse reaction. 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 At this juncture we have discussed the findings and diagnosis as well as personally reviewed appropriate imaging and performed interpretation of related testing and examination with the patient in office today. Prior medical notes from nurse practitioner Eran and history have been reviewed. At this time I would recommend cortisone injection which she agrees to. Under sterile technique patient's left wrist was injected at the CC with 1 cc of Marcaine 1 cc of Kenalog. He tolerated this well. We have also given him a wrist brace to use if he has ongoing pain exacerbations. We will plan for follow-up as needed. The patient has been involved in our cooperative treatment plan and agrees to move forward with treatment at this time. The patient appears to have arthritis of the left wrist We discussed Instructed on appropriate use of splinting and injected the wrist under sterile conditions patient tolerated injection well with no adverse reactions. Provided a wrist splint today in office. Oct, Other See orders for this visit as documented in the electronic medical record. [email or web address] Other Evaluation + Plan note Future Appointments Appointment Date:04/03/2023 01:00:00 PM Scheduled Provider:Julio FORBES MD Location:[facility] hospital Appointment Type:URO Office Visit [facility] Evaluation + Plan note Future Appointments Appointment Date:04/03/2023 01:00:00 PM Scheduled Provider:Julio FORBES MD Location:Critical access hospital Appointment Type:URO Office Visit Diagnostic Tests Pending * [facility] Future Appointments Appointment Date:10/09/2023 01:45:00 PM Scheduled Provider:Julio FORBES MD Location:Critical access hospital Appointment Type:URO Office Visit [facility] Evaluation noteNo InformationNort [employer] Other Evaluation noteNo assessment information available [facility] Work Phone: History and physical note Author Eliceo Dobson [facility] April 04, 2023 1:22pm Note Date/Time April 04, 2023 1:22 pm [facility] [address] [place] [address] Gastroenterology H&P Signed Patient: Daniele Perry MR#: [id number] : 1945 Acct:[id number] Age/Sex: 78 / M Adm Date: 3 Loc: Room: Type: [facility] Attending Dr: Eliceo Dobson MD Copies to: MD Amelia Powers NP-C~ Date of Service: 04/04/2023 HISTORY & PHYSICAL: Patient's history with special attention to the cardiovascular, pulmonary systems and the current problem was reviewed with the patient immediately prior to the procedure. Present medications and doses reviewed in the EMR. Allergies and pertinent laboratory tests were also reviewedat this time in the EMR. The physical examination, as below, was then performed. Indication, assessment and HPI: 78-year-old man here for EGD for evaluation of dysphagia PHYSICAL EXAMINATION Mouth and Pharynx : Moist mucus membranes, normal dentition Cardiac: Regular rate, regular rhythm Pulmonary: Clear to auscultation bilaterally, no wheezing Neurological: Alert and oriented x3, no focal deficits noted Abdomen: Abdomen soft, non-tender REVIEW OF SYSTEMS Constitutional: Denies malaise, fevers Cardiovascular: Denies chest pain, palpitations Respiratory: Denies shortness of breath, wheezing Gastrointestinal: Per HPI Genitourinary: Denies dysuria, polyuria Musculoskeletal: Denies joint swelling, joint stiffness Neurological: Denies numbness, tingling Integumentary: Denies rashes, skin lesions Endocrine: Denies fatigue, weight loss Written informed consent obtained from the patient. Risks (including but not limited to perforation, infection, bloating, bleeding, need for emergent surgeryand loss of life), benefits and alternatives explained and questions answered. The patient verbalized understanding. Based on history patient is an appropriate candidate for the procedure. Eliceo Dobson M.D. Documented By: Eliceo Dobson MD 04/04/23 132 Signed By: <Electronically signed by Eliceo Dobson MD> 04/04/232 [facility] Work Phone: History and physical note Author Eliceo Dobson [facility] June 27, 2023 1:00pm Note Date/Time June 27, 2023 1:00pm [facility] [address] [place] [address] Gastroenterology H&P Signed Patient: Daniele Perry MR#: [id number] : 1945 Acct:[id number] Age/Sex: 78 / M Adm Date: 3 Loc: Room: Type: [facility] Attending Dr: Eliceo Dobson MD Copies to: MD Amelia Powers NP-C~ Date of Service: 06/27/2023 HISTORY & PHYSICAL: Patient's history with special attention to the cardiovascular, pulmonary systems and the current problem was reviewed with the patient immediately prior to the procedure. Present medications and doses reviewed in the EMR. Allergies and pertinent laboratory tests were also reviewedat this time in the EMR. The physical examination, as below, was then performed. Indication, assessment and HPI: 78-year-old man with GERD with esophagitis here for EGD to assess for Martinez's PHYSICAL EXAMINATION Mouth and Pharynx : Moist mucus membranes, normal dentition Cardiac: Regular rate, regular rhythm Pulmonary: Clear to auscultation bilaterally, no wheezing Neurological: Alert and oriented x3, no focal deficits noted Abdomen: Abdomen soft, non-tender REVIEW OF SYSTEMS Constitutional: Denies malaise, fevers Cardiovascular: Denies chest pain, palpitations Respiratory: Denies shortness of breath, wheezing Gastrointestinal: Per HPI Genitourinary: Denies dysuria, polyuria Musculoskeletal: Denies joint swelling, joint stiffness Neurological: Denies numbness, tingling Integumentary: Denies rashes, skin lesions Endocrine: Denies fatigue, weight loss Written informed consent obtained from the patient. Risks (including but not limited to perforation, infection, bloating, bleeding, need for emergent surgeryand loss of life), benefits and alternatives explained and questions answered. The patient verbalized understanding. Based on history patient is an appropriate candidate for the procedure. Eliceo Dobson M.D. Documented By: Eliceo Dobson MD 06/27/23 1259 Signed By: <Electronically signed by Eliceo Dobson MD> 06/27/23 1300 [facility] Work Phone: History general Narrative - Reported* Type Description Date Medical History constipation Medical History Vitamin D deficiency Medical History depression Medical History erectile dysfunction Medical History testosterone deficiency Surgical History arthroscopic knee surgery [email or web address] Other Hospital course Narrative No data available for this section [facility] Hospital Discharge instructions No data available for this section [facility] Hospital Discharge instructions Additional Instructions DISCHARGE INSTRUCTIONS FOR UPPER ENDOSCOPY WHAT TO EXPECT: - You may feel full, gassy or cramping after your procedure. In some cases, this may be from a few hours to a day. Walking may help relieve the discomfort. - Your throat may feel sore today from the scope that the doctor passed through your throat to visualize your stomach. Take a throat lozenge or suck on ice to ease the discomfort. - You may notice some streaks of blood in your sputum if the doctor has taken a biopsy. - You should begin to recover from anesthesia within 1 hour of the procedure, however may feel groggy for the next 24 hours. DO's AND DON'Ts: - Call your doctor right away if you have a hard abdomen, severe pain, vomiting or if you cough up large amounts of blood. - Call your doctor if you develop any rashes, hives or difficulty breathing. - If you take 81 mg aspirin for your heart it is safe to resume this medication. - If you take other blood thinner medications your doctor will instruct you when these can safely be resumed. - Do NOT drive for 24 hours. - Do NOT operate machinery such as power tools, lawn mowers, snow blowers, sewing machines, etc. for 24 hours. - Avoid alcoholic beverages and drugs for allergies, nerves, or sleep. - Do NOT stay alone. Do NOT leave your child unattended. - Do NOT make important personal or business decisions or sign any legal documents. - Eat solid foods and drink liquids in smaller amounts than usual until normal appetite returns. If you should experience an upset stomach, liquids high in sugar content (soda, Toby-Aid, non-acid juices) are recommended. - Do NOT smoke. - Do take it easy today. You need not stay in bed, but avoid strenuous activities such as jogging or working out. FOLLOW UP & RECOMMENDATIONS: -Omeprazole 40 mg twice daily 30 minutes before breakfast/dinner -Repeat EGD in 12 weeks -Notify the doctor if you have any problems. -Follow up with PCP. -Office number [phone]. [facility] Work Phone: Hospital Discharge instructions Additional Instructions DISCHARGE INSTRUCTIONS FOR UPPER ENDOSCOPY WHAT TO EXPECT: - You may feel full, gassy or cramping after your procedure. In some cases, this may be from a few hours to a day. Walking may help relieve the discomfort. - Your throat may feel sore today from the scope that the doctor passed through your throat to visualize your stomach. Take a throat lozenge or suck on ice to ease the discomfort. - You may notice some streaks of blood in your sputum if the doctor has taken a biopsy. - You should begin to recover from anesthesia within 1 hour of the procedure, however may feel groggy for the next 24 hours. DO's AND DON'Ts: - Call your doctor right away if you have a hard abdomen, severe pain, vomiting or if you cough up large amounts of blood. - Call your doctor if you develop any rashes, hives or difficulty breathing. - If you take 81 mg aspirin for your heart it is safe to resume this medication. - If you take other blood thinner medications your doctor will instruct you when these can safely be resumed. - Do NOT drive for 24 hours. - Do NOT operate machinery such as power tools, lawn mowers, snow blowers, sewing machines, etc. for 24 hours. - Avoid alcoholic beverages and drugs for allergies, nerves, or sleep. - Do NOT stay alone. Do NOT leave your child unattended. - Do NOT make important personal or business decisions or sign any legal documents. - Eat solid foods and drink liquids in smaller amounts than usual until normal appetite returns. If you should experience an upset stomach, liquids high in sugar content (soda, Toby-Aid, non-acid juices) are recommended. - Do NOT smoke. - Do take it easy today. You need not stay in bed, but avoid strenuous activities such as jogging or working out. FOLLOW UP & RECOMMENDATIONS: -Decrease omeprazole to 40 mg daily -Notify the doctor if you have any problems. -Follow up with PCP. -Office number [phone]. [facility] Work Phone: Progress note No data available for this section [facility] Summary Purpose Family History No Family History Records Found Relationship Condition Age at Onset Recorded Date/T kandi father Congestive heart failure Unknown History of coronary artery bypass surgery Unknown Not Specified Malignant neoplasm of lung Unknown Advance Directives No Advanced Directives Records Found Advance Directive Response Recorded Date/ Time Advance Directives No January 06 9:53am Chief Complaint and Reason for Visit Chief Complaint Dysphagia Chief Complaint Dysphagia Esophagitis, Esophageal Stricture Additional Source Comments (unrecognized sect ion and content) No Status Records FoundNo Status Records FoundNo Status Records FoundNo Status Records FoundNo Status Records FoundNo Status Records Found INFORMATION SOURCE (unrecogn ized section and content) DATE CREATED AUTHOR 01/27/2019 [facility] DATE CREATED AUTHOR AUTHOR'S ORGANIZ ATION 04/23/2020 [facility] DATE CREATED AUTHOR AUTHOR'S ORGANIZ ATION 07/09/2023 [facility] DATE CREATED AUTHOR AUTHOR'S ORGANIZ ATION 10/11/2023 [facility] DATE CREATED AUTHOR AUTHOR'S ORGANIZ ATION 10/16/2023 [facility] REASON FOR VISIT (unrecogniz ed section and content) Left Wrist PainClinicalCOVID ORDERRecheck Left WristRecheck Left WristPOSTING SHEETEGD SCRIPT Care Team (unrecognized sect ion and content) Team Status: Active Member Role Status Dates LUC Rios Primary Care Provider Diane ibrahim Team Status: Inactive Member Role Status Dates LUC Rios Primary Care Provider Emilia Dobson MD Attending Provider Active FOR RECORDS PERTAINING TO PATIENTS WHO ARE OR HAVE BEEN ENROLLED IN A CHEMICAL DEPENDENCY/SUBSTANCEABUSE PROGRAM, SOME INFORMATION MAY BE OMITTED. This clinical summary was aggregated from multiple sources. Caution should be exercised in using it in the provision of clinical care. This summary normalizes information from multiple sources, and as a consequence, information in this document may materially change the coding, format and clinical context of patient data. In addition, data may be omitted in some cases. CLINICAL DECISIONS SHOULD BE BASED ON THE PRIMARY CLINICAL RECORDS. [facility]. provides no warranty or guarantee of the accuracy or completeness of information in this document.
[2023-10-17] MEDS: LACTATED RINGER'S SOLUTION 1,000 ML 50 ML IV ×2 (08:31→09:50)
[2023-10-17] MEDS: CEFAZOLIN SODIUM/DEXTROSE,ISO 1 GM/50 ML IV.SOLN IV (08:48)
[2023-10-17] MEDS: HYDROMORPHONE HCL 0.5 MG/0.5 ML SYRINGE IV (08:48)
[2023-10-17] MEDS: IOHEXOL 300 MG/ML - 50 ML BTL INJ (09:19)
--- NOTE | 2023-10-17 10:06 | PM.URSON ---
Urology Surgery Operative Note Operative Note Procedure Date: 10/17/23 Time Out Performed: yes Pre-op Diagnosis: Obstructing left ureteral calculus Post-op Diagnosis: same as pre-op Procedures performed: 1. Cystoscopy. 2. Left retrograde pyelogram. 3. Rigid left ureteral dilation. 4. Left ureteroscopy. 5. Stone basket extraction. 6. Left pyeloscopy. 7. Laser lithotripsy of left renal and ureteral calculi. 8. Placement of 6 Palestinian variable length left ureteral stent Anesthesia: General-LMA Primary Surgeon: Lance Dc Complications: None Estimated blood loss (mL): 5 Findings: Stenosed ureter at the L5-S1 region. Large stone burden in the left ureter and left kidney. Specimens: Left ureteral calculus Drains: 6 Palestinian variable length left ureteral stent Indications for Procedures: Yayo was found to have a 5 to 6 mm left proximal ureteral calculus causing hydronephrosis and pain. He now presents for ureteroscopic stone manipulation and probable left stent placement. He has signed an informed consent after all risks were explained. Detailed description of Procedure: The patient was brought to the operating room and placed on the operating room table in the supine position. SCDs were placed on the lower extremities and turned on and functioning during the entire case. Timeout was done by all parties in the room. We all agreed upon the patient's identification and the planned procedures for this patient. Genn. anesthesia was then administered. The patient was then repositioned into the modified dorsal lithotomy position. All pressure points were satisfactorily padded. Genitalia were sterilely prepped and draped in usual fashion. I started by passing a 22 Palestinian Olympus cystoscope per urethra and into the bladder. The anterior urethra was normal. The prostatic urethra showed bilobar obstruction. Panendoscopy in the bladder showed inflammatory debris. High-grade trabeculation with diverticuli formation diffusely was noted. No evidence of any tumors were seen. While using fluoroscopy I could see a stone at the L5 position. I did a retrograde pyelogram with the 8 Palestinian cone-tip catheter and found severe narrowing of the ureter at the S1 level. I then passed a Glidewire through the scope and cannulated the left ureter and the wire kept buckling once he got beyond the stone. I could not get the wire all the way into the kidney. I then used a 8 and 10 Palestinian rigid dilator to dilate the distal ureter. The scope was removed. I then passed a navigator 08/19 ureteral access sheath over the wire and guided up to the S1 level. The stylette and wire were then removed. I then passed a flexible ureteroscope through the access sheath and right when I got into the ureter I encountered the stone. I was able to use the 0 tip nitinol basket and extract the stone and this was sent for stone analysis. The ureteroscope was then passed back in the sheath and I then ascended up the ureter. At the elbow 3 level I encountered a large stone. This explained the difficulty I had in getting the wire up. Passed a 200 ? laser fiber through the scope and used the thulium laser at 10 W then 15 W on the dusting mode. I dusted half of the stone and then the other half shot up into the kidney. I then did pyeloscopy. There was loads of inflammatory debris throughout the entire kidney from his bad obstruction. I localized the stone and was able to continue dusting it. Once it was completely dusted the ureteroscope was removed after the Glidewire was passed back into the kidney. The access sheath was then removed. The cystoscope was then loaded over the guidewire and passed into the bladder. I then passed a 6 Palestinian variable length ureteral stent over the wire into the left kidney. The wire was removed and there were good curls in the kidney and in the basket. The bladder was drained of its contents and the scope was then removed. He was then transferred to a [facility] bed and wheeled to PACU in stable condition.
[2023-10-17] MEDS: SOLIFENACIN SUCCINATE 10 MG TABLET PO (10:32)
[2023-10-17] MEDS: MEPERIDINE HCL/PF 25 MG/ML VIAL 75 MG IM (12:06)
[2023-10-24 20:08] LABS: Size 2x2 mm (.); Uric Acid 100 % (.)
== END 2023-10-17 12:36 | disposition home or self-care (01) ==
PROVIDERS: Visit Provider Urology
PROC: (CPT 52356; principal; 2023-10-17 09:05)
DX: N13.2 Hydronephrosis with renal and ureteral calculous obstruction (principal); Z79.01 Long term (current) use of anticoagulants; Q62.10 Congenital occlusion of ureter, unspecified; N32.89 Other specified disorders of bladder; N32.3 Diverticulum of bladder; G20.A1 Parkinson's disease without dyskinesia, without mention of fluctuations; N52.9 Male erectile dysfunction, unspecified; Z87.442 Personal history of urinary calculi; E78.5 Hyperlipidemia, unspecified; Z87.440 Personal history of urinary (tract) infections; K57.90 Diverticulosis of intestine, part unspecified, without perforation or abscess without bleeding; N40.0 Benign prostatic hyperplasia without lower urinary tract symptoms; Z79.82 Long term (current) use of aspirin; N40.1 Benign prostatic hyperplasia with lower urinary tract symptoms; R35.0 Frequency of micturition; R35.1 Nocturia; Z87.891 Personal history of nicotine dependence; E29.1 Testicular hypofunction
CPT/HCPCS: 52356; 36415; 76000; 82365; 99999; J0690; J1100; J1170; J1885; J2175; J2405; J2704; Q9967

== ENCOUNTER 2023-10-29 07:03 | Outpatient (OUT) | payer MEDICARE, SELFPAY ==
--- OUTSIDE RECORDS SUMMARY | 2023-10-29 07:07 | XMS_ITS | CCD ---
Author Name Unknown Address [address] [facility] [facility] [address] [place] [address] Organization [facility] Care Team Providers Care Wireless Communications Engineer Name Role Phone PRIYANKATHIERRY ALVANIFER LAINA Primary Care UnavailCHASIDY Givens Attending UnavailJULIO Hernandez Admitting Unavailable ANDREI, JULIO Attending Unavailable MISC, Primary Care Unavailable FORBES, JULIO Consulting Unavailable JULIAN CISNEROS Consulting Unavailable FORBES, JULIO Admitting Unavailable FORBES, JULIO Attending Unavailable FORBES, JULIO Consulting Unavailable NELA DOVE V Consulting Unavailable FRANCISCA MAXWELL Consulting Unavailable TED, NIURKA Consulting Unavailable FORBES, JULIO Admitting Unavailable FORBES, JULIO Attending Unavailable FORBES, JULIO Consulting Unavailable ELIZABETH PERALES Consulting Unavailable TED, NIURKA Consulting Unavailable TRINI ANAND Consulting Unavailable ANDREI, JULIO Admitting Unavailable FORBES, JULIO Attending Unavailable Trino Crain Unavailable Nela Alegria Unavailable AMELIA BATISTA Primary Care Physician LUC Batista [facility] Primary Care Provider MD Bronson Imbrigido Attending Provider [phone] Asaad, Imad Unavailable Eran Amelia Primary Care Unavailable Asaad, Imad Attending Unavailable Asaad, Imad Admitting Unavailable Asaad, Imad Attending Unavailable Asaad, Imad Admitting Unavailable Eran Amelia Primary Care Unavailable Julio FORBES R Attending Unavailable Julio FORBES R Attending Unavailable Julio FORBES R Attending Unavailable SOILA MEJIA Referring Unavailable [facility] AMELIA Primary Care Unavailable TRINO JUAREZ Attending Unavailable SEVERINO MISHRA Admitting Unavailable MARGARITO QUINTANILLA Consulting UnavailLINO Davis Referring Unavailable EISENSTEIN, AMELIA Primary Care Unavailable Eisenstein, Amelia Primary Care Unavailable Jalen Diaz Admitting Unavailable Jalen Diaz Attending Unavailable Eisenstein, Amelia Primary Care Unavailable ForbesJulio Admitting Unavailable Forbes, Julio Woods Attending Unavailable Eisenstein, Amelia Primary Care Unavailable ForbesJulio R Admitting Unavailable Forbes, Julio R Attending Unavailable Tester SoundMirian Admitting Unavailable Tester SoundMirian Attending Unavailable Eisenstein, Amelia Primary Care Unavailable Eisenstein, Amelia Primary Care Unavailable Jalen King Admitting Unavailab le [place], Jalen Corey Attending Unavailab le ForbesJulio Consulting Unavailable Eisenstein, Amelia Primary Care Unavailable Jalen Diaz Attending Unavailable Jalen Diaz Admitting Unavailable Mohan Hogan Attending Unavailable Eisenstein, Amelia Primary Care Unavailable Mohan Hogan H Admitting Unavailable Allergies Allergy Classification Reported Allergen(s) Allergy Type Date of Onset Reaction(s) Facility (5 sources) Shellfish; Translations: [shellfish] Drug allergy (disorder) Unknown (qualifier value) [facility] Repository (3 sources) Shellfish; Translations: [shellfish] Drug allergy Unknown (qualifier value) [facility] (4 sources) clams; Translations: [CLAMS] Allergy to substance 4 [facility] (2 sources) oysters Allergy to substance 0 [facility] (2 sources) OYSTER SHELL; Translations: [OYSTER SHELL] Propensity to adverse reactions to food (disorder) 6 [facility] Repository (2 sources) SHELLFISH CONTAINING PRODUCTS; Translations: [SHELLFISH CONTAINING PRODUCTS] Propensity to adverse reactions to food (disorder) 4 [facility] Repository Medications Current Medications Medication Drug Class(es) Dates [...] Daily, # 90 tab(s), Refills(s) 3, Pharmacy: [facility]), 188, cm, 03/28/22 11:06:00 EDT, [...] 01-08-2018 take 1 tablet by marco antonio once daily Aspirin (Aspir-81) 81 mg Tablet,Delayed [...] Daily, # 30 cap(s), Refills(s) 11, [facility]: [id number], 188, cm, 04/03/23 13:02:00 EDT, Height/Length Dosing, [...] 12, 2021 2:37pm take 1 capsule by [facility] three times daily Gabapentin 300 MG take 1 capsule by mouth three times a day Oral for 30 Active Qxoe-Trfeo-Hm9-Ddx-Gyk-Phmp- St (Glucosamine Chondroitin Plus) 157-815-51-54 mg Capsule (2 sources) Start: 01-08-2018 take 1 capsule by mouth once daily Gfrh-Tbnob-Yh4-Zzg-Vyq-Ozgi-St (Glucosamine Chondroitin Plus) 142-888-07-54 mg Capsule Active 1500 MG PO Daily [...] 2 spray(s) nasal route twice daily Ipratropium Alverda 0.03 % instill 2 sprays into each [...] BID, # 6 tab(s), Refills(s) 0, [facility]: [facility][id number], 188, cm, 03/28/22 11:06:00 EDT, Height/Length Dosing, [...] January 08, 2018 12:00am Vit A,C And I-Chkyhm-Dvmlssvr (Vision Formula (With Lutein)) 1,000 unit-200 mg-60 unit-2 mg Tablet (2 sources) Start: 01-08-2018 take 1 tablet by mouth once daily Vit A,C And B-Qtsvew-Cenvcetj (Vision Formula (With Lutein)) 1,000 unit-200 mg-60 unit-2 mg Tablet Active 1 TAB PO Daily January 08, 2018 12:00am Completed/Discontinued Medications Medication Drug Class(es) Dates Sig (Normalized) Sig (Original) Multivitamin-Minera ls-Lutein (Multivitamin 50 Plus) Tablet (2 sources) Start: 01-08-2018 End: 12-12-2021 Multivitamin-Mine rals-Lutein (Multivitamin 50 Plus) Tablet Discontinued 1 TAB PO Daily January 08, 2018 12:00am December 12, 2021 2:38pm Ovalo 9-Wdo-Car-Fish Oil (Fish Oil) 1,000 mg (120 mg-180 mg) Capsule (2 sources) Start: 01-08-2018 End: 12-12-2021 take 1 tablet by mouth once daily Ovalo 9-Hwm-Vbz-Fish Oil (Fish Oil) 1,000 mg (120 mg-180 [...] Problem Date Documented Date Episodic/Chronic Abdominal pain (6 sources) Unspecified abdominal pain; Translations: [Abdominal pain] Onset: 02-12-2003-28-2022 Episodic Calculus of urinary tract (14 sources) Calculus of ureter; Translations: [Calculus of kidney] Onset: 02-03-2002-02-2020 Episodic Complications of surgical procedures or medical care (1 source) Unspecified complication of procedure, initial encounter; Translations: [Unspecified complication of procedure, initial encounter] Onset: 10-25-19 Episodic Disorders of lipid metabolism (5 sources) Hyperlipidemia, unspecified; Translations: [Hyperlipidemia] Onset: 04-14-2002-02-2020 Chronic Disorders of lipid metabolism (1 source) Pure hypercholesterolemia, unspecified; Translations: [PURE HYPERCHOLESTEROLEMIA UNSPEC] Onset: 04-14-20 Diverticulosis and diverticulitis (5 sources) Diverticulosis of intestine, part unspecified, without perforation or abscess without bleeding; Translations: [Diverticular disease] Onset: 03-16-2002-02-2020 Chronic Esophageal disorders (9 sources) Stricture of esophagus; Translations: [Esophageal obstruction] 12-13-2021 Chronic Esophageal disorders (7 sources) Esophagitis; Translations: [...] : 11-06-19 Chronic Other aftercare (1 source) 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; Translations: [RESIDENTIAL CURRNT USE ANTICOAGULANTS] Onset: 04-14-20 Episodic Other aftercare (2 sources) Other legal coordinator (current) drug therapy; Translations: [OTH RESIDENTIAL CURRENT DRUG THERAPY] Onset: 02-12-20 Episodic Other aftercare (1 source) 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; Translations: [LUNCH COOK CURRENT USE OF ASPIRIN] Onset: 03-16-20 Episodic [...] Testicular hypofunction; Translations: [Testicular hypofunction] Onset: 04-03-20 Chronic Other gastrointestinal disorders (15 sources) Dysphagia; [...] disease; Translations: [Parkinson's disease] Onset: 04-14-2002-02-2020 Chronic Residual codes; unclassified (1 source) Pain, unspecified; Translations: [Pain, unspecified] Onset: 10-25-19 Episodic Screening and history of mental health and substance abuse codes (1 source) Personal history of nicotine dependence; Translations: [PERSONAL HISTORY OF NICOTINE DEPEND] Onset: 04-14-20 Episodic Suicide and intentional self-inflicted injury (1 source) Suicidal ideations; Translations: [Suicidal ideations] Onset: 01-27-20 19 Episodic Unclassified (1 source) EMS///Daniele Perry 43 Post ureter stent serona or bleed Dr Quintanilla urology accepted transfer please call urology resident. transfer from [facility] ED, flank pain s/p ureteral stent, 78 yo M Report from [facility] Alert and oriented x4 Lithotripsy with stent last week Increased pain CT shows Onset: 10-25-19 Results Test Name Value Interpretation Reference Range Facility C Bloodon 10-28-2023 C Blood No growth at 4 Days Normal [facility] Comment on above: Performed By: #### 1 [id number], [id number], [id number], [id number], [id number], [id number] #### [facility] (DEFAULT) [address] [place] [address] BASIC METABOLIC PANLon 10-27 Anion gap [Moles/Vol] 10 mmol/L Normal 5-15 [facility] Comment on above: Performed By: #### C BCA, PINR, 22168-4, CMP #### [facility] ([id number]) [address], [address] [place] [address] Calcium [Mass/Vol] 7.5 mg/dL Low 8.5-10.5 [facility] Comment on above: Performed By: #### C BCA, PINR, 58557-1, CMP #### [facility] ([id number]) [address], [address] [place] [address] Chloride [Moles/Vol] 107 mmol/L Normal 98-109 [facility] Comment on above: Performed By: #### C BCA, PINR, 09825-6, CMP #### [facility] ([id number]) [address], [address] [place] [address] CO2 [Moles/Vol] 24 mmol/L Normal 22-32 [facility] Comment on above: Performed By: #### C BCA, PINR, 73259-0, CMP #### [facility] ([id number]) [address], [address] [place] [address] Creatinine [Mass/Vol] 0.72 mg/dL Normal 0.60-1.30 [facility] Comment on above: Result Comment: METH OD TRACEABLE TO IDMS STANDARD Performed By: #### C BCA, PINR, 70397-9, CMP #### [facility] ([id number]) [address], [address] [place] [address] eGFR (CKD-EPI) NON-RACE DEPENDENT >90 Normal >59 [facility] Comment on above: Result Comment: Reported eGFR is based on the CKD-EPI 2020 equation that does not use a race coefficient. Performed By: #### C BCA, PINR, 52524-7, CMP #### [facility] ([id number]) [address], [address] [place] [address] Glucose [Mass/Vol] 83 mg/dL Normal 65-99 [facility] Comment on above: Performed By: #### C BCA, PINR, 26616-0, CMP #### [facility] ([id number]) [address], [address] [place] [address] Potassium [Moles/Vol] 3.4 mmol/L Low 3.5-5.0 [facility] Comment on above: Performed By: #### C BCA, PINR, 66896-3, CMP #### [facility] ([id number]) [address], [address] [place] [address] Sodium [Moles/Vol] 141 mmol/L Normal 134-146 [facility] Comment on above: Performed By: #### C BCA, PINR, 81873-4, CMP #### [facility] ([id number]) [address], [address] [place] [address] Urea nitrogen [Mass/Vol] 10 mg/dL Normal 5-27 [facility] Comment on above: Performed By: #### C BIB, PINR, 58789-8, CMP #### [facility] ([id number]) [address], [address] [place] [address] CBC AND AUTO DIFFon 10-27-19 ABSOLUTE BASOPHIL 0.0 X10E9/L Normal 0.0-0.2 [facility] Comment on above: Performed By: #### C BIB, PINR, 82662-7, CMP #### [facility] ([id number]) [address], [address] [place] [address] ABSOLUTE NEUTROPHIL 4.8 X10E9/L Normal 1.5-6.6 [facility] Comment on above: Performed By: #### C BIB, PINR, 54988-7, CMP #### [facility] ([id number]) [address], [address] [place] [address] Basophils/100 WBC (Bld) 0.5 % Normal [facility] Comment on above: Performed By: #### C BIB, PINR, 80409-2, CMP #### [facility] ([id number]) [address], [address] [place] [address] Eosinophils (Bld) [#/Vol] 0.2 10*3/uL Normal 0.0-0.4 [facility] Comment on above: Performed By: #### C BIB, PINR, 72739-4, CMP #### [facility] ([id number]) [address], [address] [place] [address] Eosinophils/100 WBC (Bld) 2.1 % Normal [facility] Comment on above: Performed By: #### C BIB, PINR, 29660-3, CMP #### [facility] ([id number]) [address], [address] [place] [address] Erythrocyte distribution width (RBC) [Ratio] 13.5 % Normal 11.5-15.0 [facility] Comment on above: Performed By: #### C BIB, PINR, 15591-2, CMP #### [facility] ([id number]) [address], [address] [place] [address] Hematocrit (Bld) [Volume fraction] 43.8 % Normal 39-49 [facility] Comment on above: Performed By: #### Mian MCCARTNEY PINR, 61697-3, CMP #### [facility] ([id number]) [address] [place] [address] Hemoglobin (Bld) [Mass/Vol] 14.4 g/dL Normal 13.0-17.0 [facility] Comment on above: Performed By: #### Mian MCCARTNEY, PINR, 18339-5, CMP #### [facility] ([id number]) [address] [place] [address] Lymphocytes (Bld) [#/Vol] 1.5 10*3/uL Normal 1.0-3.5 [facility] Comment on above: Performed By: #### Mian MCCARTNEY PINR, 22977-0, CMP #### [facility] ([id number]) [address], [address] [place] [address] Lymphocytes/100 WBC (Bld) 20.4 % Normal [facility] Comment on above: Performed By: #### Mian MCCARTNEY PINR, 76988-7, CMP #### [facility] ([id number]) [address], [address] [place] [address] MCH (RBC) [Entitic mass] 29.4 pg Normal 27-34 [facility] Comment on above: Performed By: #### Mian MCCARTNEY, PINR, 10719-7, CMP #### [facility] ([id number]) [address], [address] [place] [address] MCHC (RBC) [Mass/Vol] 32.9 g/dL Normal 32-36 [facility] Comment on above: Performed By: #### C BCA, PINR, 04886-1, CMP #### [facility] ([id number]) [address], [address] [place] [address] MCV (RBC) [Entitic vol] 89 fL Normal 80-100 [facility] Comment on above: Performed By: #### C BCA, PINR, 91146-2, CMP #### [facility] ([id number]) [address] [place] [address] Monocytes (Bld) [#/Vol] 0.9 10*3/uL Normal 0-0.9 [facility] Comment on above: Performed By: #### C BCA, PINR, 49459-2, CMP #### [facility] ([id number]) [address] [place] [address] Monocytes/100 WBC (Bld) 12.3 % Normal [facility] Comment on above: Performed By: #### C BCA, PINR, 36801-4, CMP #### [facility] ([id number]) [address], [address] [place] [address] Neutrophils/100 WBC (Bld) 64.7 % Normal [facility] Comment on above: Performed By: #### C BCA, PINR, 58316-3, CMP #### [facility] ([id number]) [address], [address] [place] [address] Platelet mean volume (Bld) [Entitic vol] 8.7 fL Normal 7-12 [facility] Comment on above: Performed By: #### C BCA, PINR, 13807-6, CMP #### [facility] ([id number]) [address], [address] [place] [address] Platelets (Bld) [#/Vol] 304 10*3/uL Normal 150-450 [facility] Comment on above: Performed By: #### C BIB, PINR, 98808-6, CMP #### [facility] ([id number]) [address], [address] [place] [address] RBC COUNT 4.90 X10E12/L Normal 4.10-5.70 [facility] Comment on above: Performed By: #### C BIB, PINR, 54320-4, CMP #### [facility] ([id number]) [address], [address] [place] [address] WBC (Bld) [#/Vol] 7.3 10*3/uL Normal 4.0-11.0 [facility] Comment on above: Performed By: #### C BIB, PINR, 12411-3, CMP #### [facility] ([id number]) [address], [address] [address] ED Note-Nursingon 10-27-2023 ED Note-Nursing Spoke with Teressa from the lab, took positive preliminary blood culture result. This patient was transferred to [facility] ED on 10/24. This RN called [facility], spoke with Ruba BOWMAN, patient is located on Floor Gen 2, patient is now located in room A237. Fax #[phone]. This RN faxed preliminary results, informed Ruba from [facility] that we will send final results when they come, Ruba agreeable. Normal [facility] POTASSIUMon 10-27-2023 Potassium [Moles/Vol] 3.7 mmol/L Normal 3.5-5.0 [facility] Comment on above: Performed By: #### C BIB, PINR, 14351-1, CMP #### [facility] ([id number]) [address], [address] [place] [address] BASIC METABOLIC PANLon 10-26 Anion gap [Moles/Vol] 14 mmol/L Normal 5-15 [facility] Comment on above: Performed By: #### C BCA, PINR, 24860-3, CMP #### [facility] ([id number]) [address], [address] [place] [address] Calcium [Mass/Vol] 7.8 mg/dL Low 8.5-10.5 [facility] Comment on above: Performed By: #### C BCA, PINR, 53268-8, CMP #### [facility] ([id number]) [address], [address] [place] [address] Chloride [Moles/Vol] 103 mmol/L Normal 98-109 [facility] Comment on above: Performed By: #### C BCA, PINR, 23144-1, CMP #### [facility] ([id number]) [address], [address] [place] [address] CO2 [Moles/Vol] 20 mmol/L Low 22-32 [facility] Comment on above: Performed By: #### C BCA, PINR, 92788-8, CMP #### [facility] ([id number]) [address], [address] [place] [address] Creatinine [Mass/Vol] 0.84 mg/dL Normal 0.60-1.30 [facility] Comment on above: Result Comment: METH OD TRACEABLE TO IDMS STANDARD Performed By: #### C BCA, PINR, 53396-0, CMP #### [facility] ([id number]) [address], [address] [place] [address] GFR/1.73 sq M.predicted among non-blacks MDRD (S/P/Bld) [Vol rate/Area] 89 mL/min/{1.73_m2} Normal >59 [facility] Comment on above: Result Comment: Reported eGFR is based on the CKD-EPI 2020 equation that does not use a race coefficient. Performed By: #### C BCA, PINR, 79909-8, CMP #### [facility] ([id number]) [address], [address] [place] [address] Glucose [Mass/Vol] 73 mg/dL Normal 65-99 [facility] Comment on above: Performed By: #### C BIB PINR, 87292-4, CMP #### [facility] ([id number]) [address], [facility] [address] [place] [address] Potassium [Moles/Vol] 3.9 mmol/L Normal 3.5-5.0 [facility] Comment on above: Performed By: #### C BIB PINR, 69591-0, CMP #### [facility] ([id number]) [address], [facility] [address] [place] [address] Sodium [Moles/Vol] 137 mmol/L Normal 134-146 [facility] Comment on above: Performed By: #### Mian MCCARTNEY PINR, 02053-0, CMP #### [facility] ([id number]) [address], [facility] [address] [place] [address] Urea nitrogen [Mass/Vol] 14 mg/dL Normal 5-27 [facility] Comment on above: Performed By: #### Mian MCCARTNEY PINR, 73784-0, CMP #### [facility] ([id number]) [address], [facility] [address] [place] [address] C Urineon 10-26-2023 C Urine Urine Culture ordere d as a result of parameters set on specific urine dip and urine microsopic results. >100,000 cfu/ml Escherichia coli ORGANISM EC - SUSCEPTIBILITY ORGANISM ID: 1 ANTIBIOTIC INTERPRETATION AL STATUS ORGANISM ECEC Amik S <=16 Verified Amox/Cla I 16/8 Verified Amp R >16 Verified Amp/Sul R >16/8 Verified Azt S <=4 Verified Cefaz S 4 Verified Cefep S <=8 Verified Cefo S <=2 Verified Ceftaz S <=1 Verified Ceftri S <=1 Verified Cefur S <=4 Verified Ceph R >16 Verified Cipro S <=1 Verified Ertap S <=0.5 Verified Gent S <=2 Verified Imi S <=1 Verified Levo S <=2 Verified Nitro S <=32 Verified Pip/Chriss S <=16 Verified Tetra R >8 Verified Tobra S <=4 Verified Tri/Sulf S <=2/38 Verified Normal [facility] Comment on above: Performed By: #### 1 [id number], [id number], [id number] ####[facility] (DEFAULT)[address] [place] [address] CBC AND AUTO DIFFon 10-26-19 24 Band form neutrophils/100 WBC (Bld) 1.0 % Normal [facility] Comment on above: Performed By: #### C ALLEGRA MCCARTNEY, 21580-2, CMP #### [facility] ([id number]) [address] [address] Erythrocyte distribution width (RBC) [Ratio] 13.5 % Normal 11.5-15.0 [facility] Comment on above: Performed By: #### C ALLEGRA MCCARTNEY, 65017-4, CMP #### [facility] ([id number]) [address] [address] Hematocrit (Bld) [Volume fraction] 43.6 % Normal 39-49 [facility] Comment on above: Performed By: #### Mian MCCARTNEY PINR, 61291-8, CMP #### [facility] ([id number]) [address] [address] Hemoglobin (Bld) [Mass/Vol] 14.4 g/dL Normal 13.0-17.0 [facility] Comment on above: Performed By: #### C RICHIE MCCARTNEYR, 94950-4, CMP #### [facility] ([id number]) [address] [address] Lymphocytes (Bld) [#/Vol] 0.8 10*3/uL Low 1.0-3.5 [facility] Comment on above: Performed By: #### C RICHIE MCCARTNEYR, 70679-0, CMP #### [facility] ([id number]) [address], [address] [place] [address] Lymphocytes/100 WBC (Bld) 6.8 % Normal [facility] Comment on above: Performed By: #### C BIB PINR, 61979-6, CMP #### [facility] ([id number]) [address], [address] [place] [address] MCH (RBC) [Entitic mass] 29.9 pg Normal 27-34 [facility] Comment on above: Performed By: #### Mian MCCARTNEY PINR, 45618-8, CMP #### [facility] ([id number]) [address], [address] [place] [address] MCHC (RBC) [Mass/Vol] 33.1 g/dL Normal 32-36 [facility] Comment on above: Performed By: #### Mian MCCARTNEY PINR, 38006-7, CMP #### [facility] ([id number]) [address], [address] [place] [address] MCV (RBC) [Entitic vol] 90 fL Normal 80-100 [facility] Comment on above: Performed By: #### Mian MCCARTNEY PINR, 25048-9, CMP #### [facility] ([id number]) [address], [address] [place] [address] Monocytes (Bld) [#/Vol] 0.5 10*3/uL Normal 0-0.9 [facility] Comment on above: Performed By: #### Mian MCCARTNEY, PINR, 42280-6, CMP #### [facility] ([id number]) [address], [address] [place] [address] Monocytes/100 WBC (Bld) 4.9 % Normal [facility] Comment on above: Performed By: #### C BIB, PINR, 25574-5, CMP #### [facility] ([id number]) [address], [address] [place] [address] Neutrophils (Bld) [#/Vol] 9.9 10*3/uL High 1.5-6.6 [facility] Comment on above: Performed By: #### C BIB, PINR, 40890-6, CMP #### [facility] ([id number]) [address], [address] [place] [address] OVALOCYTE 1+ Abnormal NONE [facility] Comment on above: Performed By: #### C BIB, PINR, 07262-0, CMP #### [facility] ([id number]) [address], [address] [place] [address] Platelet mean volume (Bld) [Entitic vol] 8.3 fL Normal 7-12 [facility] Comment on above: Performed By: #### C BIB, PINR, 54967-5, CMP #### [facility] ([id number]) [address], [address] [place] [address] Platelets (Bld) [#/Vol] 265 10*3/uL Normal 150-450 [facility] Comment on above: Performed By: #### C BIB, PINR, [id number], CMP #### [facility] ([id number]) [address], [address] [place] [address] RBC COUNT 4.84 X10E12/L Normal 4.10-5.70 [facility] Comment on above: Performed By: #### C BIB, PINR, [id number], CMP #### [facility] ([id number]) [address], [address] [place] [address] SEG NEUTROPHIL 87.3 % Normal [facility] Comment on above: Performed By: #### C BCA, PINR, [id number], CMP #### [facility] ([id number]) [address], [address] [place] [place] [address] WBC (Bld) [#/Vol] 11.2 10*3/uL High 4.0-11.0 [facility] Comment on above: Performed By: #### C BCA, PINR, 52048-1, CMP #### [facility] ([id number]) [address] [place] [address] CT TRA RADIOLOGIST OVERREADo n 10-26-2023 CT TRA RADIOLOGIST OVERREAD CT TRA RADIOLOGIST OVERREAD Outside Study: CT abdomen and pelvis without intravenous contrast. CLINICAL HISTORY: Left lower quadrant pain status post left ureteroscopy and lithotripsy. COMPARISON: None. TECHNIQUE: CT abdomen and pelvis without intravenous contrast.. Initial study performed on 10/24/2023 at [facility] Second opinion was requested by Dr. Quintanilla FINDINGS: Lung bases are clear. The heart size is normal. No pericardial effusion. Moderate to heavy burden of coronary calcifications are included in the [id number]. There is a moderate-sized hiatal hernia and Normal hepatic morphology. No focal intrahepatic lesions. Gallbladder present. No biliary dilatation or portal venous gas. The pancreas and spleen are within normal limits. The adrenal glands are unremarkable. There are bilateral low-attenuation renal lesions. Nonobstructing calculi are seen on the right. Double-J nephro ureteral stent is in position on the left. Fluid collection is seen medial to the left kidney compatible with known urinoma. Measurements in PACS. Urinary bladder unremarkable. Abdominal aorta nonaneurysmal. IVC right-sided. No enlarged abdominal or pelvic lymph nodes. Colonic diverticulosis. No free air or free fluid. No peritoneal nodularity. The osseous structures are age compatible. No aggressive osseous lesions or fractures are identified. IMPRESSION: * Double-J nephroureteral left stent in position by noncontrast evaluation. 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 PLEASE NOTE: Our interpretation of studies performed at an outside institution is limited by factors including the absence of technical specifics of the image, undisclosed clinical information and the unavailability of the original interpretation. Specialists at the institution that performed the study may have access to information not available to us that could make a difference in this interpretation. We suggest that you obtain the original interpretation from the site where the study was performed. Finalized by Davi Galaviz MD on 10/26/2023 8:45 AM Normal [facility] ED Note-Nursingon 10-26-2023 ED Note-Nursing Patient urine called to [facility]. Faxed to [phone]. Normal [facility] MAGNESIUMon 10-26-2023 Magnesium [Mass/Vol] 2.3 mg/dL Normal 1.8-2.6 [facility] Comment on above: Performed By: #### C BCA, PINR, 03861-8, CMP #### [facility] ([id number]) [address] [place] [address] ASPIRATE CULTUREon Bacteria identified Aer cx Nom (Asp) GRAM STAIN >25 WHITE BLOOD CELLS/LPF 0 SQUAMOUS EPITHELIAL CELLS/LPF NO ORGANISMS SEEN CULTURE RESULTS MANY PSEUDOMONAS AERUGINOSA [ S = SUSCEPTIBLE R = RESISTANT I = INTERMEDIATE S-DO = Susceptible-dose dependent NS = Non-suscceptible NO = No Interpretation ] Organism: PSEUDOMONAS AERUGINOSA Antibiotic Interpretation AL Status CEFEPIME S <=1 F CIPROFLOXACIN S <=0.25 F LEVOFLOXACIN S 0.25 F MEROPENEM S <=0.25 F PIPERACILLIN S <=4 F TOBRAMYCIN S <=1 F Susceptible [facility] Comment on above: Performed By: #### C BCA, PINR, 84462-2, CMP #### [facility] ([id number]) [address], [address] [place] [address] BASIC METABOLIC PANLon 10-25 Anion gap [Moles/Vol] 10 mmol/L Normal 5-15 [facility] Comment on above: Performed By: #### C BCA, BMP, 58600-0, 2777-1, THYR, PINR #### [facility] ([id number]) [address], [address] [place] [address] Calcium [Mass/Vol] 8.0 mg/dL Low 8.5-10.5 [facility] Comment on above: Performed By: #### C BCA, BMP, , 2776-, THYR, PINR #### [facility] ([id number]) [address], [facility] [address] [place] [address] Chloride [Moles/Vol] 104 mmol/L Normal 98-109 [facility] Comment on above: Performed By: #### C BCA, BMP, , 2776-10, THYR, PINR #### [facility] ([id number]) [address], [address] [place] [address] CO2 [Moles/Vol] 23 mmol/L Normal 22-32 [facility] Comment on above: Performed By: #### C BCA, BMP, , 2776-10, THYR, PINR #### [facility] ([id number]) [address], [facility] [address] [place] [address] Creatinine [Mass/Vol] 1.00 mg/dL Normal 0.60-1.30 [facility] Comment on above: Result Comment: METH OD TRACEABLE TO IDMS STANDARD Performed By: #### C BCA, BMP, , 2776-10, THYR, PINR #### [facility] ([id number]) [address], [address] [place] [address] GFR/1.73 sq M.predicted among non-blacks MDRD (S/P/Bld) [Vol rate/Area] 77 mL/min/{1.73_m2} Normal >59 [facility] Comment on above: Result Comment: Reported eGFR is based on the CKD-EPI 2020 equation that does not use a race coefficient. Performed By: #### C BCA, BMP, 79214-0, 2776-, THYR, PINR #### [facility] ([id number]) [address], [address] [place] [address] Glucose [Mass/Vol] 87 mg/dL Normal 65-99 [facility] Comment on above: Performed By: #### C BCA, BMP, 75791-9, 2776-, THYR, PINR #### [facility] ([id number]) [address], [address] [place] [address] Potassium [Moles/Vol] 4.2 mmol/L Normal 3.5-5.0 [facility] Comment on above: Performed By: #### C BCA, BMP, , 2776-10, THYR, PINR #### [facility] ([id number]) [address], [address] [place] [address] Sodium [Moles/Vol] 137 mmol/L Normal 134-146 [facility] Comment on above: Performed By: #### C BCA, BMP, , 2776-10, THYR, PINR #### [facility] ([id number]) [address], [address] [place] [address] Urea nitrogen [Mass/Vol] 16 mg/dL Normal 5-27 [facility] Comment on above: Performed By: #### C BCA, BMP, , 2776-10, THYR, PINR #### [facility] ([id number]) [address], [address] [place] [address] CBC AND AUTO DIFFon 10-25-19 24 ABSOLUTE BASOPHIL 0.1 X10E9/L Normal 0.0-0.2 [facility] Comment on above: Performed By: #### C BCA, BMP, 42005-3, 2776-, THYR, PINR #### [facility] ([id number]) [address], [address] [place] [address] ABSOLUTE NEUTROPHIL 15.7 X10E9/L High 1.5-6.6 [facility] Comment on above: Performed By: #### C BCA, BMP, , 2776-10, THYR, PINR #### [facility] ([id number]) [address], [address] [place] [address] Basophils/100 WBC (Bld) 0.4 % Normal [facility] Comment on above: Performed By: #### C BCA, BMP, , 2776-10, THYR, PINR #### [facility] ([id number]) [address], [address] [place] [address] Eosinophils (Bld) [#/Vol] 0.0 10*3/uL Normal 0.0-0.4 [facility] Comment on above: Performed By: #### C BCA, BMP, , 2776-10, THYR, PINR #### [facility] ([id number]) [address], [address] [place] [address] Eosinophils/100 WBC (Bld) 0.2 % Normal [facility] Comment on above: Performed By: #### C BCA, BMP, , 2776-10, THYR, PINR #### [facility] ([id number]) [address], [address] [place] [address] Erythrocyte distribution width (RBC) [Ratio] 13.6 % Normal 11.5-15.0 [facility] Comment on above: Performed By: #### C BCA, BMP, , 2776-10, THYR, PINR #### [facility] ([id number]) [address], [address] [place] [address] Hematocrit (Bld) [Volume fraction] 44.8 % Normal 39-49 [facility] Comment on above: Performed By: #### C BCA, BMP, , 2776-10, THYR, PINR #### [facility] ([id number]) [address], [address] [place] [address] Hemoglobin (Bld) [Mass/Vol] 14.8 g/dL Normal 13.0-17.0 [facility] Comment on above: Performed By: #### C BCA, BMP, , 2776-10, THYR, PINR #### [facility] ([id number]) [address], [facility] [address] [place] [address] Lymphocytes (Bld) [#/Vol] 1.5 10*3/uL Normal 1.0-3.5 [facility] Comment on above: Performed By: #### C BCA, BMP, , 2776-10, THYR, PINR #### [facility] ([id number]) [address] [address] Lymphocytes/100 WBC (Bld) 7.9 % Normal [facility] Comment on above: Performed By: #### C BCA, BMP, , 2776-10, THYR, PINR #### [facility] ([id number]) [address] [address] [place] [address] MCH (RBC) [Entitic mass] 29.2 pg Normal 27-34 [facility] Comment on above: Performed By: #### C BCA, BMP, , 2776-10, THYR, PINR #### [facility] ([id number]) [address] [address] [place] [address] MCHC (RBC) [Mass/Vol] 33.0 g/dL Normal 32-36 [facility] Comment on above: Performed By: #### C BCA, BMP, 83880-1, 2776-10, THYR, PINR #### [facility] ([id number]) [address] [address] [address] [place] [address] MCV (RBC) [Entitic vol] 89 fL Normal 80-100 [facility] Comment on above: Performed By: #### C BCA, BMP, 90494-9, 2777-1, THYR, PINR #### [facility] ([id number]) [address], [address] [place] [address] Monocytes (Bld) [#/Vol] 1.3 10*3/uL High 0-0.9 [facility] Comment on above: Performed By: #### C BCA, BMP, 58924-0, 2777-1, THYR, PINR #### [facility] ([id number]) [address], [address] [place] [address] Monocytes/100 WBC (Bld) 7.2 % Normal [facility] Comment on above: Performed By: #### C BCA, BMP, 74723-9, 7-1, THYR, PINR #### [facility] ([id number]) [address], [address] [place] [address] Neutrophils/100 WBC (Bld) 84.3 % Normal [facility] Comment on above: Performed By: #### C BCA, BMP, 47983-7, 2777-1, THYR, PINR #### [facility] ([id number]) [address], [address] [place] [address] Platelet mean volume (Bld) [Entitic vol] 8.6 fL Normal 7-12 [facility] Comment on above: Performed By: #### C BCA, BMP, 00799-2, 2777-1, THYR, PINR #### [facility] ([id number]) [address], [address] [place] [address] Platelets (Bld) [#/Vol] 285 10*3/uL Normal 150-450 [facility] Comment on above: Performed By: #### C BCA, BMP, 99914-3, 2777-1, THYR, PINR #### [facility] ([id number]) [address], [address] [place] [address] RBC COUNT 5.05 X10E12/L Normal 4.10-5.70 [facility] Comment on above: Performed By: #### C BCA, BMP, , 2776-10, THYR, PINR #### [facility] ([id number]) [address], [address] [place] [address] WBC (Bld) [#/Vol] 18.6 10*3/uL High 4.0-11.0 [facility] Comment on above: Performed By: #### C BCA, BMP, , 2776-10, THYR, PINR #### [facility] ([id number]) [address], [address] [place] [address] ABSOLUTE BASOPHIL 0.1 X10E9/L Normal 0.0-0.2 [facility] Comment on above: Performed By: #### C BCA, PINR, 81121-8, CMP #### [facility] ([id number]) [address], [address] [place] [address] ABSOLUTE NEUTROPHIL 17.0 X10E9/L High 1.5-6.6 [facility] Comment on above: Performed By: #### C BCA, PINR, 75509-1, CMP #### [facility] ([id number]) [address], [address] [place] [address] Basophils/100 WBC (Bld) 0.5 % Normal [facility] Comment on above: Performed By: #### C BCA, PINR, 78226-4, CMP #### [facility] ([id number]) [address], [address] [place] [address] Eosinophils (Bld) [#/Vol] 0.0 10*3/uL Normal 0.0-0.4 [facility] Comment on above: Performed By: #### C BCA, PINR, 06534-8, CMP #### [facility] ([id number]) [address] [address] [place] [address] Eosinophils/100 WBC (Bld) 0.1 % Normal [facility] Comment on above: Performed By: #### C BCA, PINR, 02516-6, CMP #### [facility] ([id number]) [address], [facility] [address] [place] [address] Erythrocyte distribution width (RBC) [Ratio] 13.3 % Normal 11.5-15.0 [facility] Comment on above: Performed By: #### C BIB, PINR, 89116-1, CMP #### [facility] ([id number]) [address], [facility] [address] [place] [address] Hematocrit (Bld) [Volume fraction] 44.6 % Normal 39-49 [facility] Comment on above: Performed By: #### C BCA, PINR, 80522-3, CMP #### [facility] ([id number]) [address], [facility] [address] [place] [address] Hemoglobin (Bld) [Mass/Vol] 14.7 g/dL Normal 13.0-17.0 [facility] Comment on above: Performed By: #### C BIB, PINR, 74943-0, CMP #### [facility] ([id number]) [address] [address] [place] [address] Lymphocytes (Bld) [#/Vol] 1.6 10*3/uL Normal 1.0-3.5 [facility] Comment on above: Performed By: #### C BCA, PINR, 26216-7, CMP #### [facility] ([id number]) [address], [facility] [address] [place] [address] Lymphocytes/100 WBC (Bld) 7.9 % Normal [facility] Comment on above: Performed By: #### C BCA, PINR, 55097-6, CMP #### [facility] ([id number]) [address], [address] [place] [address] MCH (RBC) [Entitic mass] 29.2 pg Normal 27-34 [facility] Comment on above: Performed By: #### C BIB, PINR, 21602-4, CMP #### [facility] ([id number]) [address], [address] [place] [address] MCHC (RBC) [Mass/Vol] 32.9 g/dL Normal 32-36 [facility] Comment on above: Performed By: #### C BIB, PINR, 22578-4, CMP #### [facility] ([id number]) [address] [place] [address] MCV (RBC) [Entitic vol] 89 fL Normal 80-100 [facility] Comment on above: Performed By: #### C BCA, PINR, 82175-5, CMP #### [facility] ([id number]) [address], [address] [place] [address] Monocytes (Bld) [#/Vol] 1.5 10*3/uL High 0-0.9 [facility] Comment on above: Performed By: #### C BIB, PINR, 24658-8, CMP #### [facility] ([id number]) [address], [address] [place] [address] Monocytes/100 WBC (Bld) 7.6 % Normal [facility] Comment on above: Performed By: #### C BIB, PINR, 47451-3, CMP #### [facility] ([id number]) [address] [place] [address] Neutrophils/100 WBC (Bld) 83.9 % Normal [facility] Comment on above: Performed By: #### Mian BCA, PINR, 28074-2, CMP #### [facility] ([id number]) [address], [address] [place] [address] Platelet mean volume (Bld) [Entitic vol] 8.2 fL Normal 7-12 [facility] Comment on above: Performed By: #### C BIB, PINR, 23638-2, CMP #### [facility] ([id number]) [address], [address] [place] [address] Platelets (Bld) [#/Vol] 291 10*3/uL Normal 150-450 [facility] Comment on above: Performed By: #### C BIB, PINR, 34099-0, CMP #### [facility] ([id number]) [address], [address] [place] [address] RBC COUNT 5.03 X10E12/L Normal 4.10-5.70 [facility] Comment on above: Performed By: #### C BIB, PINR, 30779-1, CMP #### [facility] ([id number]) [address], [address] [place] [address] WBC (Bld) [#/Vol] 20.3 10*3/uL High 4.0-11.0 [facility] Comment on above: Performed By: #### Mian MCCARTNEY, PINR, 65805-0, CMP #### [facility] ([id number]) [address], [address] [place] [address] COMPREHENSIVE METABOLIC PANE Manuel 10-25-2023 Albumin [Mass/Vol] 3.2 g/dL Normal 3.2-5.3 [facility] Comment on above: Performed By: #### C BCA, PINR, 50059-0, CMP #### [facility] ([id number]) [address], [address] [place] [address] ALP [Catalytic activity/Vol] 52 U/L Normal 39-130 [facility] Comment on above: Performed By: #### C BCA, PINR, 35340-3, CMP #### [facility] ([id number]) [address], [address] [place] [address] ALT [Catalytic activity/Vol] 11 U/L Normal 0-40 [facility] Comment on above: Performed By: #### C BCA, PINR, 54759-1, CMP #### [facility] ([id number]) [address], [address] [place] [address] Anion gap [Moles/Vol] 10 mmol/L Normal 5-15 [facility] Comment on above: Performed By: #### C BCA, PINR, 63083-0, CMP #### [facility] ([id number]) [address] [place] [address] AST [Catalytic activity/Vol] 12 U/L Normal 0-41 [facility] Comment on above: Performed By: #### C BCA, PINR, 09274-1, CMP #### [facility] ([id number]) [address] [place] [address] Bilirubin [Mass/Vol] 1.9 mg/dL High 0.3-1.2 [facility] Comment on above: Performed By: #### C BCA, PINR, 58771-5, CMP #### [facility] ([id number]) [address] [place] [address] Calcium [Mass/Vol] 8.1 mg/dL Low 8.5-10.5 [facility] Comment on above: Performed By: #### C BCA, PINR, 93358-1, CMP #### [facility] ([id number]) [address], [address] [place] [address] Chloride [Moles/Vol] 102 mmol/L Normal 98-109 [facility] Comment on above: Performed By: #### C BCA, PINR, 10730-4, CMP #### [facility] ([id number]) [address], [address] [place] [address] CO2 [Moles/Vol] 23 mmol/L Normal 22-32 [facility] Comment on above: Performed By: #### C BCA, PINR, 08974-6, CMP #### [facility] ([id number]) [address], [address] [place] [address] Creatinine [Mass/Vol] 1.11 mg/dL Normal 0.60-1.30 [facility] Comment on above: Result Comment: METH OD TRACEABLE TO IDMS STANDARD Performed By: #### C BIB PINR, 65424-0, CMP #### [facility] ([id number]) [address] [place] [address] GFR/1.73 sq M.predicted among non-blacks MDRD (S/P/Bld) [Vol rate/Area] 68 mL/min/{1.73_m2} Normal >59 [facility] Comment on above: Result Comment: Reported eGFR is based on the CKD-EPI 2020 equation that does not use a race coefficient. Performed By: #### C BCA, PINR, 19881-1, CMP #### [facility] ([id number]) [address], [address] [place] [address] Glucose [Mass/Vol] 98 mg/dL Normal 65-99 [facility] Comment on above: Performed By: #### C BCA, PINR, 64561-5, CMP #### [facility] ([id number]) [address], [address] [place] [address] Potassium [Moles/Vol] 4.3 mmol/L Normal 3.5-5.0 [facility] Comment on above: Performed By: #### C BCA, PINR, 95703-9, CMP #### [facility] ([id number]) [address] [place] [address] Protein [Mass/Vol] 5.9 g/dL Low 6.0-8.0 [facility] Comment on above: Performed By: #### C BCA, PINR, 03013-5, CMP #### [facility] ([id number]) [address] [place] [address] Sodium [Moles/Vol] 135 mmol/L Normal 134-146 [facility] Comment on above: Performed By: #### C BCA, PINR, 69750-2, CMP #### [facility] ([id number]) [address] [place] [address] Urea nitrogen [Mass/Vol] 16 mg/dL Normal 5-27 [facility] Comment on above: Performed By: #### C BCA, PINR, 44898-3, CMP #### [facility] ([id number]) [address] [place] [address] Consent Formson 10-25-2023 Consent Forms [id number] IFF Normal [facility] ED Clinical Summaryon 2023 ED Clinical Summary [facility] - Emergency Department [address] [place] [address] ED Clinical Summary PERSON INFORMATION Name: DANIELE PERRY Age: 78 Years Sex: MALE : 1945 MRN: Acct#: Visit Reason: Flank pain; FLANK PAIN Arrival: 10/24/2023 17:50:06 Discharge: 10/24/2023 22:55:00 LOS: 000 05:05 Check In: 10/24/2023 17:50:06 Checkout:10/24/2023 22:55:00 Address: [address] [place] [address] PCP: Amelia Batista NP PROVIDER INFORMATION Provider Role Assigned Unassigned Nusrat Sharif DIGITAL COORDINATOR Nurse 10/24/2023 17:52:18 Jalen Diaz DO ED Provider 10/24/2023 17:56:13 Lourdes Richardson DIGITAL COORDINATOR Nurse 10/24/2023 19:19:39 VITALS INFORMATION Vital Sign Triage Latest Temperature Tympanic Temperature Temporal Artery Pulse Rate 102 bpm 88 bpm O2 Sat 99 % 100 % Respiratory Rate 20 br/min 17 br/min Blood Pressure /75 mmHg /75 mmHg MEDICAL INFORMATION Medications Given: Medication Dose Route morphine (Morphine IV push) 4 mg IV Push Sodium Chloride 0.9% intravenous solution 1,000 mL 1000 mL Initial Volume 1000 mL/hr IV Left Antecubital Fossa piperacillin-tazobactam (Zosyn) 4.5 gm IV Piggyback Sodium Chloride 0.9% intravenous solution 1,000 mL 1000 mL Initial Volume 125 mL/hr IV Left Antecubital Fossa Allergy Information: shellfish PHYSICIAN DOCUMENTATION Patient: DANIELE PERRY Age: 78 years Sex: MALE : 1945 Associated Diagnoses: Post-operative complication; Flank pain; Flank pain Author: Kylie Markham DO Basic Information Additional information: Chief Complaint from Nursing Triage Note : Chief Complaint 10/24/2023 17:50 EST Chief Complaint Patient is here for left sided flank pain. Had a procedure done by Dr. Forbes done this past week to break up sones. A stent was put into place and is to be removed saturday. . History of Present Illness 69 year old male signed out to me at shift change pending transfer. He hs an 8cm fluid collection medial to left kidney s/p lithotripsy and stent placement [address] Forbes suggested that he needed IR. Case discussed with Dr Quintanilla at [facility], Urology who suggests transfer to [facility] ED for evaluation and treatment. Pt accepted by Dr Cash at [facility] ED. Health Status Allergies: Allergic Reactions (Selected) Severity Not Documented Shellfish- Unknown.. Medications: (Selected) Inpatient Medications Ordered Sodium Chloride 0.9% intravenous solution 1,000 mL: 1,000 mL/hr, IV Sodium Chloride 0.9% intravenous solution 1,000 mL: 125 mL/hr, IV Prescriptions Prescribed Flomax 0.4 mg oral capsule: 0.4 mg = 1 cap(s), PO, Daily, for 10 day(s), 10 cap(s), 0 Refill(s) Documented Medications Documented Chondroitin-Glucosamine oral tablet: 1 cap(s), PO, Daily, [...] mg, 1 tab(s), PO, Daily, 0 Refill(s) acetaminophen-hydrocodon e 325 mg-5 mg oral tablet: 1 tab(s), Oral, q4hr, PRN: as needed for pain, 0 Refill(s) amoxicillin-clavulanate 500 mg-125 mg oral tablet: take 1 tablet by mouth twice a day aspirin 81 mg oral tablet: 81 mg, 1 tab(s), PO, Daily, 0 Refill(s) azelastine-fluticasone 137 mcg-50 mcg/inh nasal spray: 1 spray(s), Nasal, PRN: congestion magnesium gluconate 500 mg oral tablet: 500 mg = 1 tab(s), PO, BID oxybutynin 10 mg/24 hr oral tablet, extended release: 10 mg = 1 tab(s), Oral, Daily, 30 tab(s), 0 Refill(s) phenazopyridine 200 mg oral tablet: 200 mg = 1 tab(s), Oral, TID, for 7 day(s), 21 tab(s), 0 Refill(s) solifenacin 10 mg oral tablet: take 1 tablet by mouth once daily. Past Medical/ Family/ Social History Medical history: Resolved Basal cell carcinoma ([id number]): Resolved.. Surgical history: History of repair of inguinal hernia ([id number]) on 06/12/2022 at 77 Years. 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 Tonsillectomy ([id number]).. Family history: Congenital heart disease Father Lung cancer Mother CHF (congestive heart failure) Father . Social history: Social & Psychosocial Habits Alcohol 06/25/2022 Alcohol Use: Current (more content not included)... [facility] ED Note - Physicianon 2023 ED Note - Physician Patient: GISELLE PERRY Age: 78 years Sex: MALE : 1945 Associated Diagnoses: Post-operative complication; Flank pain; Flank pain Author: Kylie Markham DO Basic Information Additional information: Chief Complaint from Nursing Triage Note : Chief Complaint 10/24/2023 17:50 EST Chief Complaint Patient is here for left sided flank pain. Had a procedure done by Dr. Forbes done this past week to break up sones. A stent was put into place and is to be removed saturday. . History of Present Illness 69 year old male signed out to me at shift change pending transfer. He hs an 8cm fluid collection medial to left kidney s/p lithotripsy and stent placement [address] Forbes suggested that he needed IR. Case discussed with Dr Quintanilla at [facility], Urology who suggests transfer to [facility] ED for evaluation and treatment. Pt accepted by Dr Cash at [facility] ED. Health Status Allergies: Allergic Reactions (Selected) Severity Not Documented Shellfish- Unknown.. Medications: (Selected) Inpatient Medications Ordered Sodium Chloride 0.9% intravenous solution 1,000 mL: 1,000 mL/hr, IV Sodium Chloride 0.9% intravenous solution 1,000 mL: 125 mL/hr, IV Prescriptions Prescribed Flomax 0.4 mg oral capsule: 0.4 mg = 1 cap(s), PO, Daily, for 10 day(s), 10 cap(s), 0 Refill(s) Documented Medications Documented Chondroitin-Glucosamine oral tablet: 1 cap(s), PO, Daily, [...] mg, 1 tab(s), PO, Daily, 0 Refill(s) acetaminophen-hydrocodon e 325 mg-5 mg oral tablet: 1 tab(s), Oral, q4hr, PRN: as needed for pain, 0 Refill(s) amoxicillin-clavulanate 500 mg-125 mg oral tablet: take 1 tablet by mouth twice a day aspirin 81 mg oral tablet: 81 mg, 1 tab(s), PO, Daily, 0 Refill(s) azelastine-fluticasone 137 mcg-50 mcg/inh nasal spray: 1 spray(s), Nasal, PRN: congestion magnesium gluconate 500 mg oral tablet: 500 mg = 1 tab(s), PO, BID oxybutynin 10 mg/24 hr oral tablet, extended release: 10 mg = 1 tab(s), Oral, Daily, 30 tab(s), 0 Refill(s) phenazopyridine 200 mg oral tablet: 200 mg = 1 tab(s), Oral, TID, for 7 day(s), 21 tab(s), 0 Refill(s) solifenacin 10 mg oral tablet: take 1 tablet by mouth once daily. Past Medical/ Family/ Social History Medical history: Resolved Basal cell carcinoma ([id number]): Resolved.. Surgical history: History of repair of inguinal hernia ([id number]) on 06/12/2022 at 77 Years. 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 Comments: 11/11/2017 11:06 Nanda Oh RN x2 in 2011 and 2012 Bilateral replacement of knee joints ([id number]) in 2002 at 58 Years. Tonsillectomy ([id number]).. Family history: Congenital heart disease Father Lung cancer Mother CHF (congestive heart failure) Father . 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 Other Comment: Born in [place], [place] - 11/11/2017 11:13 - Nanda Benton RN Substance Use 06/25/2022 Substance use: Never 10/24/2023 Substance use: Current Type: Marijuana Comment: 1/2 tab THC for sleep aid - 10/12/2023 14:49 - Brianna BOWMAN, Latonia Bobo Tobacco 01/30/2020 Smoking tobacco use: Former smoker, quit more Started at age: 15 Years Stopped at age: 32 Years 05/31/2022 Smoking tobacco use: Former tobacco user 09/07/2023 Smoking tobacco use: Former tobacco user 10/18/2023 Smoking tobacco use: Never tobacco user 10/24/2023 Smoking tobacco use: Former tobacco user Electronic Cigarette/Vaping 06/03/2022 Electronic Cigarette Use: Never 09/07/2023 Electronic Cigarette Use: Never 10/18/2023 Electronic Cigarette Use: Never 10/24/2023 Electronic Cigarette Use: Never . Problem list: Active Problems (5) Enlarged prostate Essential tremor Hyperlipidemia Hypertension Right inguinal hernia . Physical Examination Vital Signs Vital Signs 10/24/2023 21:00 EST Peripheral Pulse Rate 93 bpm Hea (more content not included)... [facility] ED Patient Education Noteon 10-25-2023 ED Patient Education Note Education Materials [facility] ED Patient Summaryon 024 ED Patient Summary [facility] - Emergency Department [address] [place] [address] [id number] PATIENT DISCHARGE INSTRUCTIONS Patient Information Name: DANIELE PERRY Age: 78 Years Date of : 1945 Reason For Visit: Flank pain; FLANK PAIN Arrival Time: 10/24/2023 17:50:06 Primary Care Physician: Amelia Batista NP Attending Physician: Jalen Diaz DO Comment: Visit Diagnosis: Diagnoses This Visit Flank pain (R10.9) Flank pain (944705224) Post-operative complication (T81.9XXA) The Pharmacy at [facility] is open Saturday through Saturday from 9A [...] alcohol and/or drug addiction problems; contact the [facility] 29/04 Crisis Hotline -Text 4HJDT to 950513. If you received any narcotics, sedation, or [...] sign any legal documents With: Address: When: Amelia Batista [address] [place] [address] [phone] Business (1) Within 3 to 5 days Medication Information: The exam and treatment you received today in the [facility] Emergency Department were for an urgent problem and are not intended as complete care. It is important for you to follow up with a doctor, nurse practitioner, or physician?s orthodontist assistant for ongoing care. If your symptoms [...] so we can reach you if necessary. [facility] Emergency Department has provided you with a complete list of medications post discharge. Please inform your land classifier/provider of your visit and for further instruction on these medications. Any specific questions regarding your chronic medications and dosages should be discussed with your primary care physician(s) and/or pharmacist. Medications to Continue That Have Not Changed Other Medications acetaminophen-hydrocodon e (acetaminophen-hydrocodo ne 325 mg-5 mg oral tablet) 1 tab(s) Oral (given by mouth) every 4 hours (scheduled) as needed as needed for pain. amoxicillin-clavulanate (amoxicillin-clavulanate 500 mg-125 mg oral tablet) take 1 tablet by mouth twice a day. aspirin (aspirin 81 mg oral tablet) 1 tab(s) Oral (given by mouth) every day. atorvastatin (Lipitor 20 mg oral tablet) 1 tab(s) Oral (given by mouth) once a day (at bedtime). azelastine-fluticasone nasal (azelastine-fluticasone 137 mcg-50 mcg/inh nasal spray) 1 spray(s) Nasal as needed congestion. cholecalciferol (Vitamin D3 2000 intl units oral [...] 10 mg oral tablet) 1 tab(s) Oral (given by mouth) every day. magnesium gluconate (magnesium gluconate 500 mg oral tablet) 1 tab(s) Oral (given by mouth) 2 times a day (scheduled). melatonin (Melatonin) once a day (at bedtime). oxyBUTYnin (oxybutynin 10 mg/24 hr oral tablet, extended release) 1 tab(s) Oral (given by mouth) every day. phenazopyridine (phenazopyridine 200 mg oral tablet) 1 tab(s) Oral (given by mouth) 3 times a day (scheduled) for 7 Days. sildenafil (Viagra 100 mg oral tablet) 1 tab(s) Oral (given by mouth) every day as needed for erectile dysfunction. solifenacin (solifenacin 10 mg oral tablet) take 1 tablet by mouth once daily. tamsulosin (Flomax 0.4 mg oral capsule) 1 cap(s) Oral (giv (more content not included)... Normal [facility] Electronic Messagingon 10-25 Electronic Messaging --- --- --- --- --- --- --- --- --- From: [employer] ([id number]), Direct[employer] To: DANIELE PERRY Sent: 10/25/23 05:52:24 AM EST Subject: Discharge Summary Ready to View A summary regarding your recent visit is available in the Documents section of your Health Record. Normal [facility] FLUID CREATININEon Creatinine [Mass/Vol] 5.37 mg/dL Normal [facility] Comment on above: Result Comment: The reference interval and other method performance specifications are unavailable for this body fluid. Comparison of this result to serum or plasma is recommended. Performed By: #### C BCA, PINR, 18124-8, CMP #### [facility] ([id number]) [address], [address] [place] [address] CRET SPECIMEN TYPE ASPIRATE Normal [facility] Comment on above: Result Comment: LT F LANK Performed By: #### C BIB PINR, 13582-4, CMP #### [facility] ([id number]) [address], [address] [place] [address] HGB A1C (GLYCO-HGB)on 2023 Glucose [Mass/Vol] 120 mg/dL Normal [facility] Comment on above: Performed By: #### C BIB, BMP, 02247-8, 2777-1, THYR, PINR #### [facility] ([id number]) [address], [address] [address] HbA1c (Bld) [Mass fraction] 5.8 % High 4.4-5.6 [facility] Comment on above: Result Comment: NOTE ADA Guidelines Result HgbA1c Normal : less than 5.7 % Prediabetes : 5.7 % to 6.4 % Diabetes : > 6.4 % Use with caution in patients with abnormal hemoglobin variants as the half-life of red blood cells and in vivo glycation rates are affected. Performed By: #### C BCA, BMP, 70906-7, 2777-1, THYR, PINR #### [facility] ([id number]) [address], [address] [address] IR ABSCESS DRAIN PERIT/RETRO W GUIDon 10-25-2023 IR ABSCESS DRAIN PERIT/RETRO W GUID IR ABSCESS DRAIN PERIT/RETRO W GUID Indication: Left flank pain abscess. Consent: Informed consent was obtained by myself from the alert and oriented patient. Patient understands procedure and all of his questions were answered. Timeout: [place] timeout verification procedure was performed. Sedation: Patient received 100 mcg IV fentanyl for pain during the procedure. Patient did not receive moderate sedation. Radiology nurse continuously monitored the patient's vital signs throughout the procedure to include pulse oximetry. Sterile Technique: All elements of maximal sterile barrier were followed including cap, mask, gown, gloves, large sterile sheet, hand hygiene, and 2% chlorohexidine for cutaneous antisepsis. PROCEDURE: Noncontrast CT images were obtained through the left retroperitoneal region in area of fluid collection. Automatic exposure control was utilized. Spot for needle passage was selected dorsally to the left of midline. Overlying skin was prepped and draped in normal sterile fashion and anesthetized 1% lidocaine. 18-gauge Chiba needle was then advanced into the collection. Amplatz wire was advanced. Track was dilated x1 with Huy dilator. 10 Malagasy resolve drainage catheter was then placed. Aspirated fluid was first like urine but became purulent towards the end. 130 mL fluid was collected. Specimen was sent to lab for culture sensitivity and creatinine. Catheter was secured to the skin with 2-0 Prolene. Postdrainage images show complete resolution of the fluid collection. Patient tolerated the procedure very well without significant immediate complication. Estimated blood loss under 5 mL. IMPRESSION: 1. Noncontrast CT guidance for drainage of left retroperitoneal fluid collection with no significant immediate complication. Multiple noncontrast CT images were obtained for localization purposes. Finalized by Zena Tanner MD on 10/25/2023 11:40 AM Normal [facility] MAGNESIUMon 10-25-2023 Magnesium [Mass/Vol] 1.5 mg/dL Low 1.8-2.6 [facility] Comment on above: Performed By: #### C BUSHRA MCCARTNEY, , 2776-10, THYR, PINR #### [facility] ([id number]) [address], [address] [place] [address] PHOSPHORUSon 10-25-2023 Phosphate [Mass/Vol] 2.7 mg/dL Normal 2.4-4.9 [facility] Comment on above: Performed By: #### C BUSHRA MCCARTNEY, , 2776-10, THYR, PINR #### [facility] ([id number]) [address], [address] [place] [address] PROTIME AND INRon 10-25-2023 INR Coag (PPP) [Relative time] 1.4 {INR} High 0.8-1.1 [facility] Comment on above: Performed By: #### Mian ALLEGRA MCCARTNEY, 75583-2, CMP #### [facility] ([id number]) [address], [address] [place] [address] PT Coag (PPP) [Time] 15.9 s High 9.8-13.2 [facility] Comment on above: Performed By: #### Mian ALLEGRA MCCARTNEY, 13773-8, CMP #### [facility] ([id number]) [address], [address] [place] [address] INR Coag (PPP) [Relative time] 1.4 {INR} High 0.8-1.1 [facility] Comment on above: Performed By: #### ALLEGRA Pappas BCA, 10372-5, CMP #### [facility] ([id number]) [address], [address] [place] [address] PT Coag (PPP) [Time] 16.0 s High 9.8-13.2 [facility] Comment on above: Performed By: #### Mian ALLEGRA MCCARTNEY, 81531-1, CMP #### [facility] ([id number]) [address], [address] [place] [address] Progress Note - Nursericcardo - Progress Note - Nurse Suzan @ [facility] ER given report. [facility] here for transport. Pt denies any needs or other concerns at this time. [Electronically Signed on: 10/24/2023 22:54 T-05] Lourdes Richardson RN [Verified on: 10/24/2023 22:54 T-05] Lourdes Richardson RN Normal [facility] THYROID PROFILEon 10-25-2023 Free T4 [Mass/Vol] 1.47 ng/dL Normal 0.61-1.60 [facility] Comment on above: Performed By: #### C BCA, BMP, 59722-1, 2777-1, THYR, PINR #### [facility] ([id number]) [address], [address] [place] [address] TSH 0.93 uIU/mL Normal 0.49-4.67 [facility] Comment on above: Performed By: #### C BIB, BMP, , 2776-10, THYR, PINR #### [facility] ([id number]) [address], [address] [place] [address] Transfer Noteon 10-25-2023 Transfer Note [id number] IFF Normal [facility] aPTT Coag (PPP) [Time]on aPTT Coag (Bld) [Time] 29 s Normal 26-37 [facility] Comment on above: Performed By: #### C BIB, PINR, 72050-5, CMP #### [facility] ([id number]) [address], [address] [place] [address] .Auto Diff 1on 10-24-2023 Auto Laurel % 8 % Normal 1-12 [facility] Comment on above: Performed By: #### 1 [id number], 0987965, 82149381, 4086846 ####[facility] (DEFAULT)[address] [place] [address] Baso Abs# 0.1 x10 Normal 0.0-0.2 [facility] Comment on above: Performed By: #### 1 [id number], 4406808, 75159683, 3581395 ####[facility] (DEFAULT)[address] [place] [address] Basophils/100 WBC (Bld) 0.5 % Normal 0.2-2.0 [facility] Comment on above: Performed By: #### 1 [id number], 4330266, 62051241, 6507215 ####[facility] (DEFAULT)[address] [place] [address] Eos Abs# 0.0 x10 Normal 0.0-0.4 [facility] Comment on above: Performed By: #### 1 [id number], 6859779, 72801822, 0552609 ####[facility] (DEFAULT)[address] [place] [address] Eosinophils/100 WBC (Bld) 0.1 % Low 0.9-4.0 [facility] Comment on above: Performed By: #### 1 [id number], 1344146, 57708025, 6581729 ####[facility] (DEFAULT)[address] [place] [address] Lymph Abs# 1.5 x10 Normal 1.3-2.9 [facility] Comment on above: Performed By: #### 1 [id number], 9047737, 77266242, 0552447 ####[facility] (DEFAULT)[address] [place] [address] Lymphocytes/100 WBC (Bld) 7 % Low 14-48 [facility] Comment on above: Performed By: #### 1 [id number], 1765188, 29430315, 5638384 ####[facility] (DEFAULT)[address] [place] [address] Laurel Abs# 1.8 x10 High 0.0-0.8 [facility] Comment on above: Performed By: #### 1 [id number], 1293783, 62696434, 8730506 ####[facility] (DEFAULT)[address] [place] [address] Neut Abs# 18.0 x10 High 1.5-9.2 [facility] Comment on above: Performed By: #### 1 440405154, 8629499, 24003004, 5269217 ####[facility] (DEFAULT)[address] [place] [address] Neutrophils/100 WBC (Bld) 84 % Normal 44-88 [facility] Comment on above: Performed By: #### 1 [id number], 0501817, 64753216, 5820346 ####[facility] (DEFAULT)[address] [place] [address] CBC w/ Auto Diffon 4 Man Diff? Auto Normal [facility] Comment on above: Performed By: #### 1 [id number], 4860496, 22866770, 7870099 ####[facility] (DEFAULT)[address] [place] [address] Erythrocyte distribution width (RBC) [Ratio] 13.4 % Normal 11.5-15.0 [facility] Comment on above: Performed By: #### 1 [id number], 6717697, 08859926, 8805361 ####[facility] (DEFAULT)[address] [place] [address] Hematocrit (Bld) [Volume fraction] 50.6 % Normal 34.8-51.9 [facility] Comment on above: Performed By: #### 1 337346633, 0325367, 66811898, 9889825 ####[facility] (DEFAULT)[address] [place] [address] Hemoglobin (Bld) [Mass/Vol] 16.7 g/dL Normal 11.8-17.7 [facility] Comment on above: Performed By: #### 1 [id number], 6447439, 98200615, 7498519 ####[facility] (DEFAULT)[address] [place] [address] MCH (RBC) [Entitic mass] 30 pg Normal 24-34 [facility] Comment on above: Performed By: #### 1 [id number], 6537150, 12518302, 5986941 ####[facility] (DEFAULT)[address] [place] [address] MCHC (RBC) [Mass/Vol] 33 g/dL Normal 26-37 [facility] Comment on above: Performed By: #### 1 [id number], 2446074, 40796152, 7627516 ####[facility] (DEFAULT)[address] [place] [address] MCV (RBC) [Entitic vol] 90 fL Normal 81-100 [facility] Comment on above: Performed By: #### 1 [id number], 0469738, 09437581, 6090299 ####[facility] (DEFAULT)[address] [place] [address] Platelet 335 x10 Normal 138-427 [facility] Comment on above: Performed By: #### 1 [id number], 2112705, 76465266, 7568275 ####[facility] (DEFAULT)[address] [place] [address] Platelet mean volume (Bld) [Entitic vol] 8.4 fL Normal 6.3-10.2 [facility] Comment on above: Performed By: #### 1 [id number], 9068721, 71588980, 3309108 ####[facility] (DEFAULT)[address] [place] [address] RBC 5.64 x10 High 3.70-5.30 [facility] Comment on above: Performed By: #### 1 [id number], 1812610, 82188590, 9651519 ####[facility] (DEFAULT)[address] [place] [address] WBC 21.4 x10 High 3.5-10.5 [facility] Comment on above: Result Comment: Slid e Reviewed Performed By: #### 1 [id number], 4297044, 13808149, 2757701 ####[facility] (DEFAULT)[address] [place] [address] CMP Standardon 10-24-2023 Breakpoint Chem Normal [facility] Comment on above: Performed By: #### 1 [id number], 4416502, 93169529, 9243912 ####[facility] (DEFAULT)[address] [place] [address] eGFR Non AA 58 mL/min/1.73m2 Invalid Interpretation Code [facility] Comment on above: Performed By: #### 1 [id number], 0368713, 97564416, 4749727 ####[facility] (DEFAULT)[address] [place] [address] eGFR AA >60 Invalid Interpretation Code [facility] Comment on above: Performed By: #### 1 [id number], 4191472, 62852765, 5948546 ####[facility] (DEFAULT)[address] [place] [address] Albumin [Mass/Vol] 3.3 g/dL Low 3.5-5.0 [facility] Comment on above: Performed By: #### 1 [id number], 5538624, 91515959, 7382717 ####[facility] (DEFAULT)[address] [place] [address] Albumin/Globulin [Mass ratio] 0.8 {ratio} Low 1.4-2.6 [facility] Comment on above: Performed By: #### 1 [id number], 0727500, 24728085, 9956800 ####[facility] (DEFAULT)[address] [place] [address] Alk Phos 62 IU/L Normal 32-91 [facility] Comment on above: Performed By: #### 1 [id number], 9779764, 38540902, 8646546 ####[facility] (DEFAULT)[address] [place] [address] ALT [Catalytic activity/Vol] 19.0 U/L Normal 17.0-63.0 [facility] Comment on above: Performed By: #### 1 [id number], 1776705, 35152673, 2398807 ####[facility] (DEFAULT)[address] [place] [address] Anion gap [Moles/Vol] 17.0 mmol/L Normal 5.0-19.0 [facility] Comment on above: Performed By: #### 1 [id number], 5856592, 33011249, 6572237 ####[facility] (DEFAULT)[address] [place] [address]1977 AST [Catalytic activity/Vol] 22 U/L Normal 15-41 [facility] Comment on above: Performed By: #### 1 467409496, 3420879, 03185745, 8609556 ####[facility] (DEFAULT)[address] [place] [address] Bili Total 2.0 mg/dL High 0.3-1.2 [facility] Comment on above: Performed By: #### 1 [id number], 8622309, 40992965, 4495905 ####[facility] (DEFAULT)[address] [place] [address] Calcium [Mass/Vol] 9.0 mg/dL Normal 8.9-10.3 [facility] Comment on above: Performed By: #### 1 [id number], 4727350, 05913758, 2859308 ####[facility] (DEFAULT)[address] [place] [address] Chloride [Moles/Vol] 100 mmol/L Low 101-111 [facility] Comment on above: Performed By: #### 1 [id number], 5633930, 49493891, 8118883 ####[facility] (DEFAULT)[address] [place] [address] CO2 [Moles/Vol] 21 mmol/L Normal 21-32 [facility] Comment on above: Performed By: #### 1 399647539, 3856103, 79911021, 2387710 ####[facility] (DEFAULT)[address] [place] [address] Creatinine [Mass/Vol] 1.21 mg/dL Normal 0.90-1.30 [facility] Comment on above: Performed By: #### 1 [id number], 8892854, 21986210, 3119750 ####[facility] (DEFAULT)[address] [place] [address] Globulin (S) [Mass/Vol] 4.0 g/dL Normal 1.5-4.3 [facility] Comment on above: Performed By: #### 1 073036909, 7422764, 71210712, 2453812 ####[facility] (DEFAULT)[address] [place] [address] Glucose [Mass/Vol] 128.0 mg/dL High 74.0-118.0 [facility] Comment on above: Performed By: #### 1 [id number], 8591362, 63588029, 4218280 ####[facility] (DEFAULT)[address] [place] [address] Osmolality 271 mOsm/L Invalid Interpretation Code [facility] Comment on above: Performed By: #### 1 [id number], 5478195, 82828731, 0213517 ####[facility] (DEFAULT)[address] [place] [address] Potassium [Moles/Vol] 4.0 mmol/L Normal 3.6-5.1 [facility] Comment on above: Performed By: #### 1 [id number], 7015557, 70856779, 8108127 ####[facility] (DEFAULT)[address] [place] [address]603 Protein [Mass/Vol] 7.3 g/dL Normal 6.5-8.1 [facility] Comment on above: Performed By: #### 1 [id number], 3765540, 28462048, 9678411 ####[facility] (DEFAULT)[address] [place] [address] Sodium [Moles/Vol] 134.0 mmol/L Low 136.0-144.0 [facility] Comment on above: Performed By: #### 1 493875872, 2414309, 25255528, 4690238 ####[facility] (DEFAULT)[address] [place] [address] 32873 Urea nitrogen [Mass/Vol] 17 mg/dL Normal 8-26 [facility] Comment on above: Performed By: #### 1 [id number], 5636830, 73077462, 3817405 ####[facility] (DEFAULT)[address] [place] [address] [address] Urea nitrogen/Creatinine [Mass ratio] 14.0 mg/mg Normal 4.6-16.2 [facility] Comment on above: Performed By: #### 1 [id number], 2177399, 78258304, 7473407 ####[facility] (DEFAULT)[address] [place] [address] Abdomen/Pelvis w/o Contra ston 10-24-2023 CT Abdomen/Pelvis w/o Contrast CLINICAL HISTORY: [] CT Abdomen and Pelvis, non contrast COMPARISON: [date] Technique: Contiguous axial images of the abdomen and pelvis were obtained [without IV contrast administration. ] 3D Sagittal and coronal reformations were performed. [All CT scans at this facility use dose modulation, iterative reconstruction, and/or weight based dosing when appropriate to reduce radiation dose to as low as reasonably achievable.] Radiation dose: DLP 683.25 mGy/cm. FINDINGS: [Lung bases are clear.] [The liver is normal in size and attenuation without focal lesions.][There is no intra-or extrahepatic bile duct dilatation.] [The gallbladder contains no filling defects or wall abnormalities.] [The spleen is normal in size and appearance without focal lesions.] [] [The pancreas is unremarkable.] [The adrenal glands are within normal limits.] The right kidney is normal in size and position. There are nonobstructing intrarenal stones measuring up to 5 mm in the upper pole of the right kidney. There are subcentimeter low-density lesions which was likely present cysts. There is no hydronephrosis or hydroureter on the right. The left kidney demonstrates low-density lesions measuring up to 6.1 cm which most likely present cysts. There are millimeter intrarenal calcifications which may present nonobstructing stones versus extra calcifications. There is a left ureteral stent in place. There is no hydronephrosis or hydroureter. There is a 7.9 x 5.1 x 7.3 cm low-density collection medial to the left kidney and medial to the left renal collecting system and proximal portion of the left ureteral stent. The collection is producing mild mass effect on the adjacent structures. There is indistinguishable from the anterior margin of the left psoas muscle and is contained within the retroperitoneal fascial layers, Gerota's fascia. 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 [] IMPRESSION: There is a left ureteral stent in place. There is no left hydronephrosis or hydroureter. There is a 8 cm fluid collection medial to the left kidney medial to the renal collecting system of uncertain etiology. The collection represent a resolving hematoma versus seroma or urinoma. Final Signed (Electronic Signature): Paul Perla MD 10/24/23 7:18 pm Technologist: DANIELA Normal [facility] Hepatic Function Panel Stand ayan 10-24-2023 Albumin [Mass/Vol] 3.3 g/dL Low 3.5-5.0 [facility] Comment on above: Performed By: #### 1 3604330, [id number], 9643738, 6260697833, 4438440475, 8946859909 #### [facility] (DEFAULT) [address] [place] [address]842 Albumin/Globulin [Mass ratio] 0.8 {ratio} Low 1.4-2.6 [facility] Comment on above: Performed By: #### 1 9884881, 9395813545, 7823168, 2257890564, 2139506697, 9275790129 #### [facility] (DEFAULT) [address] [place] [address] 72911 Alk Phos 63 IU/L Normal 32-91 [facility] Comment on above: Performed By: #### 1 3166674, 7665818003, 2365636, 7892609889, 3035187309, 4106379719 #### [facility] (DEFAULT) [address] [place] [address] 27249 ALT [Catalytic activity/Vol] 22.0 U/L Normal 17.0-63.0 [facility] Comment on above: Performed By: #### 1 6299025, 7311333513, 0555523, 5908083662, 2543422729, 4703594243 #### [facility] (DEFAULT) [address] [place] [address] 80451 AST [Catalytic activity/Vol] 19 U/L Normal 15-41 [facility] Comment on above: Performed By: #### 1 8856322, 1166797318, 8592982, 0526005304, 3067491508, 5679896709 #### [facility] (DEFAULT) [address] [place] [address] Bili Direct 0.40 mg/dL Normal 0.10-0.50 [facility] Comment on above: Performed By: #### 1 9045138, 4172348068, 9897298, 2913930107, 6979236136, 2933510070 #### [facility] (DEFAULT) [address] [place] [address] Bili Indirect 1.6 mg/dL High 0.2-0.8 [facility] Comment on above: Performed By: #### 1 5487929, 0419377785, 2212327, 7279694451, 2185861805, 8519146828 #### [facility] (DEFAULT) [address] [place] [address] Bili Total 2.0 mg/dL High 0.3-1.2 [facility] Comment on above: Performed By: #### 1 2054702, 8998925833, 1293995, 2660474272, 2635163549, 0599629398 #### [facility] (DEFAULT) [address] [place] [address] Globulin (S) [Mass/Vol] 4.0 g/dL Normal 1.5-4.3 [facility] Comment on above: Performed By: #### 1 8827860, 1557237608, 7283939, 0676348093, 9403444505, 8284133741 #### [facility] (DEFAULT) [address] [place] [address] Protein [Mass/Vol] 7.3 g/dL Normal 6.5-8.1 [facility] Comment on above: Performed By: #### 1 6908312, 0450105772, 2648829, 9196570611, 8633258485, 8337793004 #### [facility] (DEFAULT) [address] [place] [address] Breakpoint Chem Normal [facility] Comment on above: Performed By: #### 1 6524390, 7003434233, 1607753, 0078136794, 6153799689, 4596108439 #### [facility] (DEFAULT) [address] [place] [address] 19807 Lactic Acidon 10-24-2023 Lactic Acid 15.7 mg/dL Normal 4.5-19.8 [facility] Comment on above: Performed By: #### 2 480229 ####[facility] (DEFAULT)[address] [place] [address] 64644 Lipaseon 10-24-2023 Lipase Level 28.0 IU/L Normal 22.0-51.0 [facility] Comment on above: Performed By: #### 1 479855542, 8828264, 01931996, 6713053 ####[facility] (DEFAULT)[address] [place] [address] 92317 PTon 10-24-2023 INR Coag (PPP) [Relative time] 1.22 {INR} High 0.91-1.11 [facility] Comment on above: Performed By: #### 5 [id number], 5592467, 9545490090, 9349783 ####[facility] (DEFAULT)[address] [place] [address] 19994 PT 12.5 second(s) High 9.7-11.8 [facility] Comment on above: Performed By: #### 5 157499777, 5748127, 2923594538, 5927054 ####[facility] (DEFAULT)[address] [place] [address] 46341 PTTon 10-24-2023 PTT 31 second(s) Normal 25-35 [facility] Comment on above: Performed By: #### 1 2006862, 1267095759, 5835787, 6772837758, 5370391885, 4842284901 #### [facility] (DEFAULT) [address] [place] [address]291 Progress Note - Nurseon 10-07 Progress Note - Nurse Patient is brought in by [facility]. Patient is alert and oriented. Patient is here for left sided lower flank pain. Rates pain a 8/10. Patient had a few kidney stones broken up last week and a stent put in as well. Patient is to have the stent taken out soon. Patient has a history of kidney stones. Patient is afebrile. [Electronically Signed on: 10/24/2023 19:05 EST] Kole, January RN [Verified on: 10/24/2023 19:05 EST] Kole, January RN Normal [facility] TnI HSon 10-24-2023 Troponin I High Sensitivity 11.7 pg/mL Normal <=20.0 [facility] Comment on above: Performed By: #### 1 0616878, 8639241166, 6510141, 0410617233, 8088626411, 8073055136 #### [facility] (DEFAULT) [address] [place] [address] Transfer Noteon 10-24-2023 Transfer Note 1930- CALLED [facility], P T SEES DR FORBES AND HAD SURGERY AT [facility]. 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 OFFERED [facility], [facility] OR [place] 2041-CALLED TRANSFER REFERRAL CENTER FOR [facility], THEY ADVISED THEY ONLY HAVE ICU BEDS AND THE FLOOR HAS A BED WAIT. TRIED [facility], PAGED FAXED FACESHEET TO [phone] 2103-CONTACTED [facility], THEY ADVISED [facility] HAD NO BEDS 2106-CALLED [facility], YES THEY HAVE IR, LEFT MESSAGE FOR NURSING BOBBIN INSPECTOR 2119-[facility] NURSING BOBBIN INSPECTOR CALLED BACK AND [facility] 2126- DR AYON [facility] CALLED BACK, ADVISED THEY CANT TAKE PT BECAUSE THEY HAVE IR BUT THEY DONT HAVE IR 2131-CALLED [facility] TO TALK TO DR LEMON, [facility] CALLED BACK AGAIN TO DECLINE PT 2132-CALLED RADIOLOGY TO HAVE THEM PUSH IMAGES TO PACS SO UROLOGIST COULD REVIEW 2139- CALLED BACK AND DECLINED PT 2143-CALLED [facility] TRANSFER LINE FOR MALLIKA COLLINS, SPOKE WITH PAT AND SHE ADVISED ALL ER ARE HOLDING. ADDED PT TO LIST AND SHE PAGED UROLOGIST. FAXED FACESHEET TO [phone] [facility] TRANSFER LINE 2152-CALLED [facility], PAGED UROLOGY, HAD RAD DISC SENT ELECTRONICALLY 2211-ACCEPTED, TALKED TO SAMANTHA AT [facility], PT GOING TO THE ER 2215-CONTACTED [facility] FOR TRANSFER 2229-CALLED [facility] TO CANCEL 2244-[facility] ARRIVED 2254- [facility] LEFT WITH PT ENTIRE CHART AND RAD DISC SENT WITH TRANSPORT TEAM [Electronically Signed on: 10/24/2023 22:55 EST] Annalisa Daniels [Verified on: 10/24/2023 22:55 EST] Annalisa Daniels [facility] UA [id number] 10-24-2023 UA Amorph. Few [facility] Comment on above: Order Comment: Urina lysis Microscopic order added on by [employer] Expert Rules system. Performed By: #### 1 [id number], 0518183, 99853395 ####[facility] (DEFAULT)[address] [place] [address] UA Bacteria Trace [facility] Comment on above: Order Comment: Urina lysis Microscopic order added on by [employer] Expert Rules system. Performed By: #### 1 [id number], 7115577, 69181598 ####[facility] (DEFAULT)[address] [place] [address] 22347 UA Hyal Cast 0-5 [facility] Comment on above: Order Comment: Urina lysis Microscopic order added on by [employer] Expert Rules system. Performed By: #### 1 [id number], 6032363, 68000377 ####[facility] (DEFAULT)[address] [place] [address] UA Mucous 2+ [facility] Comment on above: Order Comment: Urina lysis Microscopic order added on by [employer] Rules system. Performed By: #### 1 620389279, 5718700, 07740697 ####[facility] (DEFAULT)[address] [place] [address] UA RBC 5-10 [facility] Comment on above: Order Comment: Urina lysis Microscopic order added on by [employer] Rules system. Performed By: #### 1 [id number], 3914956, 58204083 ####[facility] (DEFAULT)[address] [place] [address] UA Squam Epi Rare [facility] Comment on above: Order Comment: Urina lysis Microscopic order added on by [employer] Rules system. Performed By: #### 1 [id number], 1962511, 99584461 ####[facility] (DEFAULT)[address] [place] [address] UA WBC 15-20 [facility] Comment on above: Order Comment: Urina lysis Microscopic order added on by [employer] Expert Rules system. Performed By: #### 1 [id number], 5965456, 98055089 ####[facility] (DEFAULT)[address] [place] [address] UA w Culture if Ind Standard on 10-24-2023 Breakpoint UA [facility] Comment on above: Performed By: #### 1 [id number], 2048648, 46010260 ####[facility] (DEFAULT)[address] [place] [address] Color (U) Yellow [facility] Comment on above: Performed By: #### 1 350485996, 5017782, 40720220 ####[facility] (DEFAULT)[address] [place] [address] Culture? Indicated Invalid Interpretation Code [facility] Comment on above: Result Comment: Resu lt created by rule GL_MAGR_ADD_UA_CULT Result created by rule GL_MAGR_ADD_UA_CULT Result created by rule GL_MAGR_ADD_UA_CULT1 Result created by rule GL_MAGR_ADD_UA_CULT Performed By: #### 1 [id number], 8433869, 31355056 ####[facility] (DEFAULT)[address] [place] [address] Glucose (U) [Mass/Vol] Negative Normal [facility] Comment on above: Performed By: #### 1 [id number], 3973741, 10669782 ####[facility] (DEFAULT)[address] [place] [address] 99378 Ketones Ql (U) 40 Normal [facility] Comment on above: Performed By: #### 1 [id number], 7817843, 47033597 ####[facility] (DEFAULT)[address] [place] [address] 81419 Micro? Indicated Invalid Interpretation Code [facility] Comment on above: Result Comment: Resu lt created by rule GL_MAGR_ADD_UA_MICRO Performed By: #### 1 [id number], 8344681, 39160912 ####[facility] (DEFAULT)[address] [place] [address] 54989 UA Bilirubin SMALL Abnormal [facility] Comment on above: Performed By: #### 1 740573066, 9122446, 69527059 ####[facility] (DEFAULT)[address] [place] [address] 73755 UA Blood MODERATE Abnormal NEGATIVE [facility] Comment on above: Performed By: #### 1 [id number], 5637922, 00759733 ####[facility] (DEFAULT)[address] [place] [address] 53829 UA Clarity CLEAR Normal CLEAR [facility] Comment on above: Performed By: #### 1 783376966, 8813861, 11119874 ####[facility] (DEFAULT)[address] [place] [address] 12323 UA Leuk Est TRACE Abnormal NEGATIVE [facility] Comment on above: Performed By: #### 1 [id number], 4378829, 56361442 ####[facility] (DEFAULT)[address] [place] [address] 28073 UA Nitrite Positive Abnormal NEGATIVE [facility] Comment on above: Performed By: #### 1 124429738, 2814178, 52213864 ####[facility] (DEFAULT)[address] [place] [address] UA pH 6.0 Normal 5-8 [facility] Comment on above: Performed By: #### 1 143599387, 4596753, 31063990 ####[facility] (DEFAULT)[address] [place] [address] UA Protein 30 Abnormal NEGATIVE [facility] Comment on above: Performed By: #### 1 [id number], 6935895, 08086258 ####[facility] (DEFAULT)[address] [place] [address] UA Spec Grav 1.020 Normal 1.001-1.035 [facility] Comment on above: Performed By: #### 1 [id number], 0397519, 67865005 ####[facility] (DEFAULT)[address] [place] [address] UA Urobilinogen 0.2 mg/dL Normal 0.2-1.0 [facility] Comment on above: Performed By: #### 1 543715487, 3130185, 76270570 ####[facility] (DEFAULT)[address] [place] [address] Urine Source Clean Catch Normal [facility] Comment on above: Performed By: #### 1 040131638, 2837158, 01253745 ####[facility] (DEFAULT)[address] [place] [address] C Urineon 10-21-2023 C Urine <10,000 cfu/ml Normal [facility] Comment on above: Performed By: #### 1 7754811, 8002199195, 9626659, 3266273436, 4865039570, 5128871628 #### [facility] (DEFAULT) [address] [place] [address] Electronic Messagingon 10-19 Electronic Messaging --- --- --- --- --- --- --- --- --- From: Directtest ([email or web address]), Directtest To: DANIELE PERRY Sent: 10/19/23 05:29:38 AM EST Subject: Discharge Summary Ready to View A summary regarding your recent visit is available in the Documents section of your Health Record. Normal [facility] .Auto Diff 1on 10-18-2023 Auto Laurel % 8 % Normal 10-18 [facility] Comment on above: Performed By: #### 1 8841773, 8336047759, 3579528, 1752982915, 9062349356, 8406082625 #### [facility] (DEFAULT) [address] [place] [address] 82885 Baso Abs# 0.1 x10 Normal 0.0-0.2 [facility] Comment on above: Performed By: #### 1 6747145, 0673172319, 7201343, 3913517707, 0337409409, 1468303529 #### [facility] (DEFAULT) [address] [place] [address] 52159 Basophils/100 WBC (Bld) 0.4 % Normal 0.2-2.0 [facility] Comment on above: Performed By: #### 1 1406522, 1868814450, 0132440, 2037797155, 3199008002, 1174768670 #### [facility] (DEFAULT) [address] [place] [address] 00987 Eos Abs# 0.0 x10 Normal 0.0-0.4 [facility] Comment on above: Performed By: #### 1 3486120, 1846458724, 1810948, 0443410008, 9217165007, 7335392977 #### [facility] (DEFAULT) [address] [place] [address] 35225 Eosinophils/100 WBC (Bld) 0.1 % Low 0.9-4.0 [facility] Comment on above: Performed By: #### 1 3260120, 2060387187, 4087202, 4176805273, 1341147638, 8894654265 #### [facility] (DEFAULT) [address] [place] [address] 39235 Lymph Abs# 1.3 x10 Normal 1.3-2.9 [facility] Comment on above: Performed By: #### 1 0637231, 0169541103, 3473078, 1741431233, 6756046451, 7266782751 #### [facility] (DEFAULT) [address] [place] [address] 16290 Lymphocytes/100 WBC (Bld) 9 % Low 14-48 [facility] Comment on above: Performed By: #### 1 6569768, 4549240851, 2543813, 2146840985, 7230243358, 5852920252 #### [facility] (DEFAULT) [address] [place] [address] 50839 Laurel Abs# 1.2 x10 High 0.0-0.8 [facility] Comment on above: Performed By: #### 1 4070676, 7117462998, 0400358, 5504031383, 2775435451, 2880886728 #### [facility] (DEFAULT) [address] [place] [address] 42178 Neut Abs# 12.5 x10 High 1.5-9.2 [facility] Comment on above: Performed By: #### 1 4750262, 0625112779, 9373336, 8205305984, 1541559281, 3872957794 #### [facility] (DEFAULT) [address] [place] [address] 50617 Neutrophils/100 WBC (Bld) 83 % Normal 44-88 [facility] Comment on above: Performed By: #### 1 4240790, 1234792965, 6376285, 6247383544, 7150904735, 1490442825 #### [facility] (DEFAULT) [address] [place] [address] 27657 BMP Standardon 10-18-2023 eGFR Non AA 34 mL/min/1.73m2 Invalid Interpretation Code [facility] Comment on above: Performed By: #### 1 9000413, 0927096251, 4898139, 4664440791, 1766056987, 4700779383 #### [facility] (DEFAULT) [address] [place] [address] 20496 eGFR AA 42 mL/min/1.73m2 Invalid Interpretation Code [facility] Comment on above: Performed By: #### 1 6738993, 9125517479, 0271979, 1309566065, 0416223312, 7558301077 #### [facility] (DEFAULT) [address] [place] [address] 27716 Anion gap [Moles/Vol] 13.4 mmol/L Normal 5.0-19.0 [facility] Comment on above: Performed By: #### 1 9885467, 0119824526, 3185266, 7907441683, 1383030323, 7768594164 #### [facility] (DEFAULT) [address] [place] [address] 24236 Calcium [Mass/Vol] 8.4 mg/dL Low 8.9-10.3 [facility] Comment on above: Performed By: #### 1 6991797, 8774260581, 1608421, 4591660119, 9432837406, 9216771073 #### [facility] (DEFAULT) [address] [place] [address] 09936 Chloride [Moles/Vol] 101 mmol/L Normal 101-111 [facility] Comment on above: Performed By: #### 1 5290680, 1940438846, 3772498, 2684235077, 2255944055, 8270813836 #### [facility] (DEFAULT) [address] [place] [address] 55885 CO2 [Moles/Vol] 24 mmol/L Normal 21-32 [facility] Comment on above: Performed By: #### 1 5083085, 1605188124, 0789643, 3025911164, 0240798939, 4715768916 #### [facility] (DEFAULT) [address] [place] [address] 81779 Creatinine [Mass/Vol] 1.90 mg/dL High 0.90-1.30 [facility] Comment on above: Performed By: #### 1 2113102, 3162415830, 9267280, 6828240239, 9716642322, 0673597895 #### [facility] (DEFAULT) [address] [place] [address] 10539 Glucose [Mass/Vol] 122.0 mg/dL High 74.0-118.0 [facility] Comment on above: Performed By: #### 1 3520396, 1565795559, 1184260, 5169430710, 5011836698, 4419944895 #### [facility] (DEFAULT) [address] [place] [address] 05798 Osmolality 276 mOsm/L Invalid Interpretation Code [facility] Comment on above: Performed By: #### 1 4669646, 7215801637, 2289653, 5005880451, 8335809228, 0833416424 #### [facility] (DEFAULT) [address] [place] [address] 13722 Potassium [Moles/Vol] 4.4 mmol/L Normal 3.6-5.1 [facility] Comment on above: Performed By: #### 1 3783255, 7759578642, 7341218, 2062989594, 9259939173, 9296494169 #### [facility] (DEFAULT) [address] [place] [address] 79478 Sodium [Moles/Vol] 134.0 mmol/L Low 136.0-144.0 [facility] Comment on above: Performed By: #### 1 1749742, 7818601802, 0715030, 5854444063, 2133619547, 2574174847 #### [facility] (DEFAULT) [address] [place] [address] 15624 Urea nitrogen [Mass/Vol] 30 mg/dL High 8-26 [facility] Comment on above: Performed By: #### 1 3356445, 3806459654, 4332660, 7737307052, 2152781353, 6691092213 #### [facility] (DEFAULT) [address] [place] [address] 32640 Urea nitrogen/Creatinine [Mass ratio] 15.7 mg/mg Normal 4.6-16.2 [facility] Comment on above: Performed By: #### 1 1778762, 6330894612, 3124051, 3979291301, 7244814489, 1493885323 #### [facility] (DEFAULT) [address] [place] [address] CBC w/ Auto Diffon 4 Erythrocyte distribution width (RBC) [Ratio] 13.5 % Normal 11.5-15.0 [facility] Comment on above: Performed By: #### 1 2525841, 0061770587, 0149067, 1506641389, 3383987594, 5612799282 #### [facility] (DEFAULT) [address] [place] [address] Hematocrit (Bld) [Volume fraction] 45.1 % Normal 34.8-51.9 [facility] Comment on above: Performed By: #### 1 0056774, 2883483380, 9044853, 7601484504, 3958887722, 0824491089 #### [facility] (DEFAULT) [address] [place] [address] Hemoglobin (Bld) [Mass/Vol] 14.8 g/dL Normal 11.8-17.7 [facility] Comment on above: Performed By: #### 1 6132066, 0096069586, 3642640, 2623829048, 2187883042, 1632454525 #### [facility] (DEFAULT) [address] [place] [address] Man Diff? Auto Invalid Interpretation Code [facility] Comment on above: Performed By: #### 1 9377450, 5125603114, 9914552, 9924318061, 9584398325, 0697699271 #### [facility] (DEFAULT) [address] [place] [address] MCH (RBC) [Entitic mass] 30 pg Normal 24-34 [facility] Comment on above: Performed By: #### 1 1892912, 8539013987, 2189659, 3719683011, 8596201117, 7327407421 #### [facility] (DEFAULT) [address] [place] [address] MCHC (RBC) [Mass/Vol] 33 g/dL Normal 26-37 [facility] Comment on above: Performed By: #### 1 9912907, 6638976003, 1613139, 1443625069, 8854401748, 4243625000 #### [facility] (DEFAULT) [address] [place] [address] 94122 MCV (RBC) [Entitic vol] 90 fL Normal 81-100 [facility] Comment on above: Performed By: #### 1 [id number], [id number], 2276336, 7754299381, 1050009415, [id number] #### [facility] (DEFAULT) [address] [place] [address] 70196 Platelet 253 x10 Normal 138-427 [facility] Comment on above: Performed By: #### 1 [id number], [id number], 9888010, 2968759034, 9650760928, 9231529584 #### [facility] (DEFAULT) [address] [place] [address] 39519 Platelet mean volume (Bld) [Entitic vol] 8.8 fL Normal 6.3-10.2 [facility] Comment on above: Performed By: #### 1 [id number], 9974721372, 8986294, 9742963266, 4624439284, 4892198108 #### [facility] (DEFAULT) [address] [place] [address] 62087 RBC 5.00 x10 Normal 3.70-5.30 [facility] Comment on above: Performed By: #### 1 [id number], 1431178817, 0498994, 3823079213, 4828388391, 9880071763 #### [facility] (DEFAULT) [address] [place] [address] 50444 WBC 15.0 x10 High 3.5-10.5 [facility] Comment on above: Result Comment: Slid e Reviewed Performed By: #### 1 [id number], 9421039784, 2592412, 4593484895, 7585354368, 8749765652 #### [facility] (DEFAULT) [address] [place] [address] 24758 ED Clinical Summaryon 2023 ED Clinical Summary [facility] - Emergency Department [address] [place] [address] ED Clinical Summary PERSON INFORMATION Name: DANIELE PERRY Age: 78 Years Sex: MALE : 1945 MRN: Acct#: Visit Reason: Post surgical problem; Dysuria; LT FLANK PAIN, PAINFUL URINATION Arrival: 10/18/2023 12:28:00 Discharge: 10/18/2023 15:19:00 LOS: 000 02:51 Check In: 10/18/2023 12:28:00 Checkout:10/18/2023 15:19:00 Address: [address] [place] [address] PCP: Amelia Batista DISPLAYER PROVIDER INFORMATION Provider Role Assigned Unassigned Jalen Diaz DO ED Provider 10/18/2023 12:37:10 Jose Manuel Camacho DIGITAL COORDINATOR Nurse 10/18/2023 12:41:05 VITALS INFORMATION Vital Sign Triage Latest Temperature Tympanic Temperature Temporal Artery Pulse Rate O2 Sat 98 % 94 % Respiratory Rate 20 br/min 18 br/min Blood Pressure /88 mmHg /88 mmHg MEDICAL INFORMATION Medications Given: Medication Dose Route Sodium Chloride 0.9% intravenous solution 1,000 mL 1000 mL Initial Volume 1000 mL/hr IV Right Antecubital Fossa morphine (Morphine IV push) 4 mg IV Push Allergy Information: shellfish PHYSICIAN DOCUMENTATION DISCHARGE INFORMATION: Discharge Disposition: Home Discharge Location: Home PATIENT EDUCATION INFORMATION Instructions: Ureteral Stent Implantation, Care After Follow-Up: With: Address: When: Julio Forbes MD [address] [place] [address] Within 1 to 2 days Comments: Return to ER immediately with worsening pain, fevers, chills, or vomiting. Follow up with your urologist Saturday. You will need your creatinine rechecked. If you cannot get ahold of urologist, then contact PCP. Make sure you are staying well hydrated. DIAGNOSIS: 1:Flank pain Patient Understands: Yes - Patient/family/caregiver verbalizes understanding of instructions given Comment: Normal [facility] ED Note-Nursingon 10-18-2023 ED Note-Nursing private vehicle arri kale from home with c/o dysuria burning with urination s/p urethral stent yesterday with dr chang in [place]. rr even and unlabored. maintains ra saturation. afebrile. abd non tender. urinal provided. s/o at bedside. lcta. oriented to call light. no distress. Normal [facility] ED Patient Summaryon 024 ED Patient Summary [facility] - Emergency Department [address] [place] [address] PATIENT DISCHARGE INSTRUCTIONS Patient Information Name: DANIELE PERRY Age: 78 Years Date of : 1945 Reason For Visit: Post surgical problem; Dysuria; LT FLANK PAIN, PAINFUL URINATION Arrival Time: 10/18/2023 12:28:00 Primary Care Physician: Amelia Batista NP Attending Physician: Jalen Diaz DO Comment: Visit Diagnosis: Diagnoses This Visit Dysuria ([id number]) Flank pain (R10.9) Post surgical problem ([id number]) The Pharmacy at [facility] is open Saturday through Saturday from 9A [...] alcohol and/or drug addiction problems; contact the [facility] 29/04 Crisis Hotline -Text 7OHWR dj [phone]. If you received any narcotics, sedation, or [...] legal documents With: Address: When: Julio Forbes MD [address] [place] [address] [place] [address] Within 1 to 2 days Comments: Return to ER immediately with worsening pain, fevers, chills, or vomiting. Follow up with your urologist Saturday. You will need your creatinine rechecked. If you cannot get ahold of urologist, then contact PCP. Make sure you are staying well hydrated. Medication Information: The exam and treatment you received today in the [facility] Emergency Department were for an urgent problem and are not intended as complete care. It is important for you to follow up with a doctor, nurse practitioner, or physician?s orthodontist assistant for ongoing care. If your symptoms [...] so we can reach you if necessary. [facility] Emergency Department has provided you with a complete list of medications post discharge. Please inform your land classifier/provider of your visit and for further instruction on these medications. Any specific questions regarding your chronic medications and dosages should be discussed with your primary care physician(s) and/or pharmacist. New Medications [id number], [address], [place] [id number], [phone] acetaminophen-hydrocodon e (acetaminophen-hydrocodo ne 325 mg-5 mg oral tablet) 1 tab(s) Oral (given by mouth) every 6 hours (scheduled) as needed as needed for pain. Refills: 0. doxycycline (doxycycline hyclate 50 mg oral capsule) 2 cap(s) Oral (given by mouth) 2 times a day (scheduled) for 7 Days. Refills: 0. oxyBUTYnin (oxybutynin 10 mg/24 hr oral tablet, extended release) 1 tab(s) Oral (given by mouth) every day. Refills: 0. Medications to Continue That Have Not Changed Other Medications amoxicillin-clavulanate (amoxicillin-clavulanate 500 mg-125 mg oral tablet) take 1 tablet by mouth twice a day. aspirin (aspirin 81 mg oral tablet) 1 tab(s) Oral (given by mouth) every day. atorvastatin (Lipitor 20 mg oral tablet) 1 tab(s) Oral (given by mouth) once a day (at bedtime). azelastine-fluticasone nasal (azelastine-fluticasone 137 mcg-50 mcg/inh nasal spray) 1 spray(s) Nasal as needed congestion. cholecalciferol (Vitamin D3 2000 intl units oral [...] needed for insomnia. ezetimibe (Zetia 10 mg or (more content not included)... [facility] Extra Greenon 10-18-2023 Tube Collected Yes Invalid Interpretation Code [facility] Comment on above: Performed By: #### 1 [id number], [id number], 5833289, 0105151862, 9044159532, [id number] #### [facility] (DEFAULT) [address] [place] [address] 79091 UA Awksi5pt 10-18-2023 UA Bacteria Trace [facility] Comment on above: Order Comment: Urina lysis Microscopic order added on by [employer] Expert Rules system. Performed By: #### 2 [id number], [id number] ####[facility] (DEFAULT)[address] [place] [address] 28050 UA RBC >100 [facility] Comment on above: Order Comment: Urina lysis Microscopic order added on by [employer] Expert Rules system. Performed By: #### 2 [id number], [id number] ####[facility] (DEFAULT)[address] [place] [address] 02989 UA Squam Epi Rare [facility] Comment on above: Order Comment: Urina lysis Microscopic order added on by [employer] Rules system. Performed By: #### 2 [id number], [id number] ####[facility] (DEFAULT)[address] [place] [address] UA WBC 30-40 [facility] Comment on above: Order Comment: Urina lysis Microscopic order added on by [employer] Rules system. Performed By: #### 2 [id number], [id number] ####[facility] (DEFAULT)[address] [place] [address] UA w Micro, if Ind Standardo n 10-18-2023 Breakpoint UA [facility] Comment on above: Performed By: #### 2 [id number], [id number] ####[facility] (DEFAULT)[address] [place] [address] Color (U) Yellow Normal [facility] Comment on above: Performed By: #### 2 [id number], [id number] ####[facility] (DEFAULT)[address] [place] [address] Glucose (U) [Mass/Vol] Negative [facility] Comment on above: Performed By: #### 2 [id number], [id number] ####[facility] (DEFAULT)[address] [place] [address] Ketones Ql (U) Negative [facility] Comment on above: Performed By: #### 2 [id number], [id number] ####[facility] (DEFAULT)[address] [place] [address] Micro? Indicated Invalid Interpretation Code [facility] Comment on above: Result Comment: Resu lt created by rule GL_MAGR_ADD_UA_MICRO Performed By: #### 2 [id number], [id number] ####[facility] (DEFAULT)[address] [place] [address] 87398 UA Bilirubin SMALL Abnormal [facility] Comment on above: Performed By: #### 2 [id number], [id number] ####[facility] (DEFAULT)[address] [place] [address] 69405 UA Blood LARGE Abnormal NEGATIVE [facility] Comment on above: Performed By: #### 2 [id number], 53683535 ####[facility] (DEFAULT)[address] [place] [address] 48282 UA Clarity SL CLOUDY Abnormal CLEAR [facility] Comment on above: Performed By: #### 2 [id number], [id number] ####[facility] (DEFAULT)[address] [place] [address] 10311 UA Leuk Est MODERATE Abnormal NEGATIVE [facility] Comment on above: Performed By: #### 2 [id number], [id number] ####[facility] (DEFAULT)[address] [place] [address] 30496 UA Nitrite Negative Normal NEGATIVE [facility] Comment on above: Performed By: #### 2 [id number], [id number] ####[facility] (DEFAULT)[address] [place] [address] 67309 UA pH 6.0 Normal 5-8 [facility] Comment on above: Performed By: #### 2 [id number], [id number] ####[facility] (DEFAULT)[address] [place] [address] 61494 UA Protein 30 Abnormal NEGATIVE [facility] Comment on above: Performed By: #### 2 [id number], 57687814 ####[facility] (DEFAULT)[address] [place] [address] 51983 UA Spec Grav 1.020 Normal 1.001-1.035 [facility] Comment on above: Performed By: #### 2 [id number], [id number] ####[facility] (DEFAULT)[address] [place] [address] 06791 UA Urobilinogen 0.2 mg/dL Normal 0.2-1.0 [facility] Comment on above: Performed By: #### 2 [id number], [id number] ####[facility] (DEFAULT)[address] [place] [address] 28812 Urine Source Clean Catch Normal [facility] Comment on above: Performed By: #### 2 [id number], [id number] ####[facility] (DEFAULT)[address] [place] [address] Electronic Messagingon 10-13 Electronic Messaging --- --- --- --- --- --- --- --- --- From: Damon (Kinjal)Damon To: DANIELE PERRY Sent: 10/13/23 05:11:08 AM EST Subject: Discharge Summary Ready to View A summary regarding your recent visit is available in the Documents section of your Health Record. Normal [facility] .Auto Diff 1on 10-12-2023 Auto Laurel % 7 % Normal -12 [facility] Comment on above: Performed By: #### 1 [id number], 7270244108, 2117261730, 5454964, 55483222, 6009965530 ####[facility] (DEFAULT)[address] [place] [address] Baso Abs# 0.1 x10 Normal 0.0-0.2 [facility] Comment on above: Performed By: #### 1 [id number], 1700476564, 2836142110, 3771915, 07132115, 9333661887 ####[facility] (DEFAULT)[address] [place] [address] Basophils/100 WBC (Bld) 0.9 % Normal 0.2-2.0 [facility] Comment on above: Performed By: #### 1 [id number], 5302109432, 7342654752, 5650682, 87251163, 1817496176 ####[facility] (DEFAULT)[address] [place] [address] Eos Abs# 0.2 x10 Normal 0.0-0.4 [facility] Comment on above: Performed By: #### 1 [id number], 3908387215, 2408726003, 2016673, 98343335, 5120030511 ####[facility] (DEFAULT)[address] [place] [address] 10955 Eosinophils/100 WBC (Bld) 1.9 % Normal 0.9-4.0 [facility] Comment on above: Performed By: #### 1 [id number], 5067763153, 3139421240, 4352583, 26325056, 7600925842 ####[facility] (DEFAULT)[address] [place] [address] Lymph Abs# 2.2 x10 Normal 1.3-2.9 [facility] Comment on above: Performed By: #### 1 [id number], 3084205273, 0920129655, 5640425, 00879138, 3861246702 ####[facility] (DEFAULT)[address] [place] [address] Lymphocytes/100 WBC (Bld) 20 % Normal 14-48 [facility] Comment on above: Performed By: #### 1 [id number], 8820057226, 3979362677, 9527371, 76678434, 6663789826 ####[facility] (DEFAULT)[address] [place] [address] Laurel Abs# 0.8 x10 Normal 0.0-0.8 [facility] Comment on above: Performed By: #### 1 [id number], 4856441847, 4177355307, 9628689, 12125842, 7364267034 ####[facility] (DEFAULT)[address] [place] [address] Neut Abs# 7.7 x10 Normal 1.5-9.2 [facility] Comment on above: Performed By: #### 1 753550722, 1505226250, 8629788711, 1117129, 34265912, 7955607197 ####[facility] (DEFAULT)[address] [place] [address] Neutrophils/100 WBC (Bld) 70 % Normal 44-88 [facility] Comment on above: Performed By: #### 1 423586728, 6480095615, 8950891433, 1820288, 65847229, 5351637693 ####[facility] (DEFAULT)[address] [place] [address] CBC w/ Auto Diffon 4 Erythrocyte distribution width (RBC) [Ratio] 13.4 % Normal 11.5-15.0 [facility] Comment on above: Performed By: #### 1 [id number], 5854032586, 2412930393, 3820261, 76205695, 0169428715 ####[facility] (DEFAULT)[address] [place] [address] Hematocrit (Bld)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 DgV9d6C9Ec6eMZ4fNV5wETO5 AL89MX44dUSut6U7rED5Q1Uw HBFqpjflqkbboTQ5OKLsRYCs aW47 nOGgJLckIu0uk4X5p303AUIz TOEyeI21Ew6qgPcnVLLamBBY tZ5nxugnb6pufvojRgWsVIFh MDt0 RDs9ANOxmXdiXyJvFWT2EfJ7 GXT5tXXfoI7nzSqrnrnqsH2x Oyc+UpiuKROxoqV7H5VlZth3 ZCBz tUhuIF2ykWUtPTuqNi0anHfs lCamAQ7vZUZunmykJPJgvR6v ONQisTMksEkoBT8zDNEidccg b250 AlTfOFX0LXYeqMWwD9YppM5q LxXzLQRmKNKoF4FqlTBvCFgt P273ZJngTyL8YPBeogQxD8Bl LWFs lQcyFrC7r2V4Sr8AWDtTQI74 VZ72hZScs4F7jER2T3TeKMMh aqsvwfqwzRA3DZUgSQFwzK94 cGFk YUweYm1qs5C4a230RZDcRBCj mS38Gw2jjUdjUVTfoYHEyC7m yuytt1ypdgltQyOvVXYeSYp7 ZXh0 XQTqzFmvTjKeAFF6FqN0QNO2 xNRlhC5knQtwknrvzH6oIhm+ BY0blfmuldO3PX21HD93T1Th Pjwv dGFibGU+PHRhYmxlIHdpZHRo UIviDXPjOoPlaAsfWW6mFf5j UQCfMQQewNiurJItQlKyn1zq YXBz TQosWB0fxBquY8MjoDE2ZFOc y9i8Qn88X49zX6MjbFW+PGNv iFG6bZS3jG8sSgQmDqL5VDsq Z249 ByQubEOkSwowx6whi4dynDv8 WoQnNCLieuJtnKxkMDN5i6Jf No95P80oNUzyCCYaNKDmDWDo IHZh hYvhtf8ksR0pMt7+PGNvbCB3 jFH7oG1nVsCgYxV3CGtnQ668 ZdFahJZgAoxqJ86kF6EhmHZ+ PHRy Efb1HFSbxOxeEP2klNXvYWwr Bi8tEKJ9NkInPwZiNIraT4Kc KXEyyrqtlgeemGQ7KACcRUSn aW47 Vw0hbTdaAq1oGHAxCLN5CKUo pUHtR0NyiY4gVpBxFFMpMTMt V1ZbtFKvKKnrB552VIqdWqZ4 IHZl bvMrJ7JzVCGgjOekGqK7o2Q7 Yg3QeRdxnCGbIB0nWgGzCUj2 L2JlNzv8NBOgrCyzHZ4xwCJs ZGlu Sq6ipYtokDwmJI2aAAQflljw p432RoVca6ciOXCblGDzWSsh KXI1P33ih6S4DKWpLRLmLBS8 dGV4 lV9fkAcuhvpuePPnrYpychDn uBslCUgeTSteG798BOHomImz OqSCMls6S2PfMzh5CEAtkTgb ZT0n cTWkBKwdQg4sgOotzOsmPQ4u OMOnnypbp042HqIfe6igDWLj cULgHWtdQRF8Q33ce1R3IJDx MDAw WRF4aCV9pX1zoKpurrbkePLg jMofiaUkbFotHQsjZGnwZ468 LUIwdUzhHo8SIsb4G5FvKcz4 ZCBz kIfwEB3dyEYuQIxaCe5ndInh xMltAJ1yJCIuwplkl083KqZz f1agKMBymULcBYiyKZA3A32x b3I6 ZKErTFEnCDT1cMQ6rH5qzXdq bjogbGVmdDsgdmVydGljYWwt SYjhQ584GBDaaGfwOiIafXJk Ojwv dGQ+OM80mu13P0HfIkniZbb7 RKDhGOC7eNM1gK9mGXTmMJgp a4Q3sWT0N8LdsqSjak1pv4ri YXBz ZTo (more content not included)... [facility] Electronic Messagingon 09-08 Electronic Messaging --- --- --- --- --- --- --- --- --- From: Damon ([email or web address]), Damon To: DANIELE PERRY Sent: 09/08/23 04:57:15 AM EST Subject: Discharge Summary Ready to View A summary regarding your recent visit is available in the Documents section of your Health Record. [facility] ED Clinical Summaryon 2022 ED Clinical Summary [facility] Emergency Department [address] [place], [place] [id number] ED Clinical Summary PERSON INFORMATION Name: DANIELE PERRY Age: 78 Years Sex: MALE : 1945 MRN: Acct#: Visit Reason: Dental pain; Facial pain; L SIDE FACIAL PAIN Arrival: 09/07/2023 03:59:37 Discharge: 09/07/2023 04:44:00 LOS: 000 00:45 Check In: 09/07/2023 03:59:37 Checkout:09/07/2023 04:44:00 Address: [facility] [address] PCP: Amelia Batista DISPLAYER PROVIDER INFORMATION Provider Role Assigned Unassigned Mohan Hogan DO ED Provider 09/07/2023 04:03:15 Chio Zhou DIGITAL COORDINATOR Nurse 09/07/2023 04:16:20 VITALS INFORMATION Vital Sign [...] PATIENT EDUCATION INFORMATION Instructions: Dental Caries, Adult, [facility] Follow-Up: With: Address: When: Follow up with [...] Enrique Huitron With: Address: When: Amelia Batista [address] [place], [place] [id number] Business (1) Within 3 to 5 days DIAGNOSIS: Pain due to dental caries Patient Understands: Yes - Patient/family/caregiver verbalizes understanding of instructions given Comment: [facility] ED Note - Physicianon 2022 ED Note [...] present, hypopharynx is well without any PPA TITLE INVESTIGATOR or RPA. His heart rate and rhythm is regular murmur lungs are clear without expiratory wheeze or rales Chest motion his face is symmetric speech precise hand grasps are normal pupils are equal round reactive 3 mm, this patient has a dental problem.. Medical Decision Making Orders Impression and Plan Diagnosis Pain due to dental caries (GBE05-KO K02.9, Discharge, Medical) No 19, 18, 17 Plan Condition: Unchanged. Disposition: Discharged: time 09/07/2023 04:24:00. Patient was given the following educational materials: Dental Caries, Adult, Bhow-lj-Mnha. Follow up with: Amelia Batista Within 3 [...] well You are welcomed to return anytime. T H OMLEY< ER PHYSICIAN< Carlos Enrique Huitron. Counseled: Patient, Regarding diagnosis, Regarding diagnostic results, Regarding treatment plan, Regarding prescription, Patient indicated understanding of instructions. [Electronically Signed on: 09/07/2023 07:33 EST] Mohan Hogan DO [Verified on: 09/07/2023 07:33 EST] Mohan Hogan DO Normal [facility] ED Patient Summaryon 023 ED Patient Summary [facility] - Emergency Department [address] [place] [id number] PATIENT DISCHARGE INSTRUCTIONS Patient Information Name: DANIELE PERRY Age: 78 Years Date of : 1945 Reason For Visit: Dental pain; Facial pain; L SIDE FACIAL PAIN Arrival Time: 09/07/2023 03:59:37 Primary Care Physician: Amelia Batista NP Attending Physician: Mohan Hogan DO Comment: Visit Diagnosis: Diagnoses This Visit Dental pain ([id number] -[id number]) Facial pain ([id number] -[id number]) Pain due to dental caries (K02.9) The Pharmacy at [facility] is open Saturday through Saturday from 9A [...] alcohol and/or drug addiction problems; contact the [facility] 29/04 Crisis Hotline -Text 4HOPE to [phone]. If you received any narcotics, sedation, or [...] Enrique Huitron With: Address: When: Amelia Batista [address] [place] [address] Business (1) Within 3 to 5 days Medication Information: The exam and treatment you received today in the [facility] Emergency Department were for an urgent problem and are not intended as complete care. It is important for you to follow up with a doctor, nurse practitioner, or physician?s orthodontist assistant for ongoing care. If your symptoms [...] so we can reach you if necessary. [facility] Emergency Department has provided you with a complete list of medications post discharge. Please inform your land classifier/provider of your visit and for further instruction on these medications. Any specific questions regarding your chronic medications and dosages should be discussed with your primary care physician(s) and/or pharmacist. New Medications [id number], [address] [place], [place] [id number], [phone] acetaminophen-oxycodone (acetaminophen-oxycodone 325 mg-5 mg oral tablet) [...] oral tablet) 1 (more content not included)... [facility] Coding Summaryon 07-03-2023 Coding Summary HTMLBase 64 EtsjilegFBv8kLf+PGhlYWQ+ JY6RXYDoR08ieOPsjY8gZ9YM TElOSywgQVBQTElOSyIgbmFt HK4nsRKzGMKp IC8+XF7wGVZeYrtcdIQhv9O1 eRJ3T09hcp1mTHnfdVW2OAIi BlQmldhti9hrwXx5ZWpgUwse OyBt ACKgaV85KXD4uT17Ly97yCEh xPAet0thaTw6RoZnDFGfXOI4 ePagGOoow5ZyGVMoH90vrRUl c2U6 OMAinIaoqVDdVpHkdEC4uN9j MYvlzkwni4jklamwFpb9fx22 yJJwi6R1sJK5D8OkjqE0BHQv bGQg QrhgzGNZaO4fechas5twcpou SzCgPPWfYYd9PNb2BGQuvHpa YuEkQG32APN1SZPwhhDvF6Nt LWFs hJgnTvL2z6C9We1QR0MJNsnd T1QBFOUIAIqwgCH+JO22jg62 P5OrAyvmFoq8QWWpUUE3iZX9 aD0n LALfFXqjy0V4tWJ4O4CzgoBz tm0fg1ouGFKvKZoiK40nfNXj y5I1SZNtlMX4GYDquQznEcTt aG93 Oyc+GEOtrBkfv4DrAmbkk9dt m3gpcXd3CreaKGHydyDbhZyd PPL1y3KpNw1aBTAyzZZ0lOK0 aD0i LcYmLyF7OZyzR756WvDibTSw MdshX10sZ6QeaCA+PHRyPjx0 DQTuhOqvUM7tX0TvXWJesvmz bGVm qHjmZD4eODOhwrjsCMMrgP1d EODeZ6u3LpYbPoG2MNtqF1Jw AXHpsdysCv24sP6bRsNvNdZ2 MGlu E1GivnM0NEBzaTMfZLhzVEZ1 J37lw2G1LXAoEBFzFOP2yOA6 aH3luIygdzbfpEShtLffuxTa dGlj UMhnTYbcB443IPFgzFifWpHx ZGluZyBEYXRlOiAgMDkvMjcv MjAyMzwvdGQ+DQUxLLV0gOpu PSAn uURfNIyvWb6ewXnlyCaaKH1c XCBqvxmnDRBjoD8mYLEpdSJg mUkfGJ4pWECpvydne575DyZz MHB0 LSJjbYWiH2XljA1iSgQsUAWi QNHsF7LzrJCaOWimZ658RKvz LpF7WEAbcoQdF9WoDGIrjSkz OiB0 s6D8Mz5Jz6RgaiffA5WtfUHe SxUnPvjgTWa0K8KhZwcytUA+ BK45IHPqYN22JJj9VPC3oEbe PSdi VFJhO1HlaX9uGxYeIVKgMCDy Oyc+PHRhYmxlIHdpZHRoPScx IUCoGnIdlIoiNK1jFq7tBQEr LWNv rCbppQFfCuGic1rpEREdWSfu OF4xkLzkR5HtzZY2WBPgr7l5 Wp27W12hQ2IlmID+PGNvbCB3 aWR0 iZ2xAvKjEbW2GJziX950VvYn kIAcJvsjx5qmf5rtyDn3PuA1 MMVroiLdeZyxXRO7m4VfAe38 Y29s IHdpZHRoPSIxNSUiIHZhbGln qh1teB9aAq2+AOBmpSK5vLH1 tL7bJbWfWqB2HZquS833HxZc cCIv Etgpu8hry9qajJz7CgKaXYPl hfKnaSffIUJ5y8ZlNn29W8Me kEgch0VoXcc2yj13uUNxe1P9 bGU9 X2NmUVEhrrhxnMBqeSbyKI6g LFDzzqbfGCHglU5rWCEqT7y9 QgPkDxC1QBfiN8IgrsH9GMTz bGQg USNpxDMXoP6ltzdsp0vewqfe CaRkFHPsWJm8WLr6YQJxrZdh JjUqWBN2RfD1ZQV3aQGicE5v bGln abwonY9xFvx+HDZ5vFHwjRNG MK5sGslspIT+GBZuJWI5jEcr UAgnWBQcdL0zATJuL6a8OfDu LjA1 OHdvT6JlyeM6YMGnqYAuWZGl sNEIcW9imyweh5whtsowPhGr WGCzFNk8RMe3XWChbVpyKlFg ZWZ0 ZmG5GYB9fWLokA7wzKacwjqd dW7yLdj+SlfczIcuKIJ5JCf7 Z8EdJnl3PEKhdTbaFN1kuZPt ZGlu Ak6knKhelRwfPA2jBRQzfurq o242VxZzt4ynFHAwyMIrBJck UZO1E35xa9A0YVVaEJRlVCS3 dGV4 gD5yoWuvowmwfYVlyHtarwMj yQvxZKwrNXnvV200AEGiyCde YdHkRHi6A0IgHys2QBMvmFio ZT0n oKTxWVikXf4vwUlzfTafYU3j ZXZaohxmn686SsKwh8klUTMq aDDaEJhtPTV1J06iv4E2BVXx MDAw SAH1cCW4pK5ksYqggprezUWo tZdeniVbzAbsMNkdIPdzK252 WLZjnDqsLvNewDb3G6IkEgs3 ZCBz yZtnLI1yrDPmBTldQk1qrNbm kHbhHG2eYGFuxpimz671TcVx w5emTRNbvDHmZGkyFKN0R31i b3I6 QIMzITUkSAJ8zFQ1nV4yrCqq bjogbGVmdDsgdmVydGljYWwt CKajX258QKKnmHxwUcSkaWgl bnQg QAkePSa3I1IlOnkenQD+PC90 THInAQ60nROelWDhv1fuuKo6 IdZaNBGmKGV2iRdvXPamz8Tu ZXIt Y78maGOoa0Z9FPExuCvlfQEw OmKvrQL4aZ2wKHkzqcvyk7vm xxxbEnkxc0texp77qW04U87v IHdp HTMbUSTqZRQgHQZhmQvxad1f uO9gQs6+XXWbnHP1cMR9mM5d TUXtAyL3UXylP401WnIfuRNv Pjxj n9zrb6nsfAm2OkW6CJBzjcFy cEbvWNX2l6RqWx43U41tCSvo EUWpDDKwBMKqQRElcSfpty7u dG9w Ii8+KGXncMR4hAU9mE8cNjFc NiZ2FOsjM793UzYdwZAsTzyd P45cX7VadKE+OHVeIhx0ITWp dHls EL6jkMAvVIrrNr5mRBL2RoOd RrScVVfnE3AuSKZhvflzqdal aWZ2YHAdEIQpwQ15Dp1ztBzz MTBw mZKNnF8yhqflq6ydhgtoJeHo PEOpOYp7NDk1JLQznQktVpVb MNA5ViP0NKF9uUJelA3gdHjp bjog uL9xU3TfKEBzuilrXw49bQ9o OrSfBaJ4BAkcQjg+R9iGT64M VNPPW4iSKSq8R0AfGxm6IOLl dHls XY3uhTNmTRwiEf3ylVpqxZua KY5zRWAwnoacXEJudI2nWMFa bQMazIngXO4gKVCcfpmtt006 OiAx DWR1WBZolFRsT9FpbH2xUiQs KLSeDYElU4AorHVnAXozO091 OYzjFdR8VPUzluHbB7FaSJNa aWdu ZdP0t9U8Sh4tPQ2iDM9dXRI4 CR73SE41hVDvx9K9lQO6D6No NLTgoaoohkxtlGS6IJKcRCPk aW47 rASdMWqaWa4gs2B5q223MDZa INZbqA26Sb1flEcsBJNisONW fK6rawcwe0zevxlsEwInSHJj MDt0 AFj5GUDumYfaMcXyQGX0BiV9 DZW9zBMojJ1phOrkubqyqT6i Oyc+MfifPNDyngO1J9XnDlr1 ZCBz nRzuEU1vrAGjMCtuJa8yyNih cXcoHG4dBRFeofsdKVVqaU0d LGUrhSMcmMnfRM6dCTWzjkyq b250 IfVjUML9WSUbeYEpX7TkfD0g XaPoDAGjOACmN8ZouBKkNPcj C398PVibTxH4AUEmexTeV4Tx LWFs jGhdVsD5n9G9Ph0UTJzSOI40 RV71lZFaq5S5uBV7G9OuJXTy vxfjkksgyJP8ZQNyZPTzvL54 cGFk JHhrIw0qq9E5e297KCMzEGVh gJ49Qu2sjZoaVKAddCRVaI0l uejrz4hkfuojLuYkHXDrCPp4 ZXh0 AGAsiSsyFgRzMIX4TbR3QUZ7 vCMsoD1bzWmvexckcU8pPtn+ R9A6R6ThXcnvpMJ+HW65PLVk ZT48 bLKkaCDqq8jwgXz5AsIyWCXz ASU8cJkmQMilf8ZtRJJzG34s mERhq8J9TFQjbNsygPWiVqYu bXB0 yA3gMCsyjwdnz0vzsezySrbf t0ratj03tV48G43pAOtlUQVz PQHuMYGpSEFfbVpabk1tyX7c Ii8+ VWMdcLE5pMH0xN8uKwPiOmM3 FBukE111LqMtcVVwKovhc6jx x3teaUy7QsAlVUUgtrHkpIud PSJ0 r9FrOi36L62xRBieZENjPCDy FBEfBGUekBekhx3qvS0yRk3+ LX2vc3okfc51nP55qDD+PHRk IHN0 fXslRTcqUNOinG2xUOrgFpH0 NTClJvSbmT38vRRjNDprEj2t tYkszLatYS2cLTAcdypuk357 OiBi u5yrVPTicQTiVVjsSDI7H11l n0Z3PRQvNSOmADX2sJD1sV5c bGlnbjogbGVmdDsgdmVydGlj YWwt EZfnC379OGMcfYksWlWneWDq F5vjqjKBFE7qVankfSD+PHRk SAK0fUzhRXyzBLIldB0oNWWx Z2h0 NpEtPtH7GWucN9ItqmD8VHHv yAUcWMFplZDGbP8gfwcao5ov sqofLlKiTLZyYAn8EUj3XYZb aWdu LeMcRRA7XgN3TWI4pIAvoI4c iEondkbhyH0rJvi+RklOOjwv dGQ+RMOpNYB5qRcnPPdnTJEq aW5n HXNiL8b6TzGyZvQ5EWwgZ5Zw yvU3WSVqvXYmXLOavXARfZ5m ijdfj6btgavoQqVzZVHkMGx1 ZXh0 RXKicSwvEtBzABW1LtC7GHH1 dZBhoO4ocMsjviroxE6xIus+ TVJOOjwvdGQ+HABhGBO4nBfx PSdw FAJglO7mTMBaT7k1GvXtVlS0 QDhoQ5AwjdG9PXToiVZvNXWo xWUOtX9oyddav5tuafzeKzPn MDAw IDx4OJr7ZGZvmRjpRtTnVYN4 YoF5ICT6oUEdjF4foVcazmyr sI8lGxu+ZKN6LGP4QR59TJ26 L3Ry PjwvdGFibGU+PHRhYmxlIHdp DXCwCRktXMLuXuGssPsnIR1h Jr9vFGXtNNDuqIrmoGMqDnBe b2xs YXB (more content not included)... [facility] Coding Summary HTMLBase 64 WbvrkzywZZy4iFv+PGhlYWQ+ PW0MBDRiA65muZKmqJ3mN3HM TElOSywgQVBQTElOSyIgbmFt VT9gfNOuNBHa IC8+FL2xNWVoNjnkqQVkk5M2 gCO9Y84xzl9jOPaasNE4WRIt BhDajynvx4abwOd4AVjyYsks OyBt OSJsvQ70BYJ4fG20Bu37eXGg hNUrm4lnuEo5VtWoXRCwUER6 oMevOIevl3FkZMUsE37niPJl c2U6 GELpgEsjaRSxNiTsjYC1vB2r JLbcafmen3zrmtllDyl4rl98 sRSxf3S8qPQ4L1OxubQ4OZFa bGQg EowrvCTXkT5ydffuz4phfolx FqRlPRFlLTq0CAv1OWCquIjm ZuKzUP69LNG1NWOhpeQhR1Gk LWFs cQtyIfF0u6G2Dv3OO9YQIzgr L9TOLLVYEVuyhUG+SM79tp49 B8MkAjhmSyr6HJVuTZT7sBH8 aD0n TMOyNMhua9U5zMO8Z4XgwaRd kp5ge4uwIKLmFPedG07iiWXz m9Q8EHApgXY1AQTtmFozDaQm aG93 Oyc+HTHqlDkdp0AbFhlzl6ze w7fheRg3ZtvbTDYiguEycQlm PKJ9u0XuAt1cDCEqfSF2eQA0 aD0i FwBjZeW4OXaeH738OjRhkTCk LbggH34eD7NrvNJ+PHRyPjx0 ERDdsPbpXW0gO0RrTKQieovw bGVm iQrsWV3tJSXpdcquSVZhiW4h HFHiK9n2DmHvDmS3YViyL6Eq ZAZrncojUy56tF6fOsJeDoP3 MGlu P7MeppI8UEXkeEHvFEpwSBF0 D71zy0S6XRVnZZPqZEB3pKE6 cU3gvYjaduclvHSioGznkmBd dGlj ZLmtAWuqD454DOBjvHxeFcDr ZGluZyBEYXRlOiAgMDkvMjcv MjAyMzwvdGQ+OGVdKGV4bCoy PSAn hSAtPKhtSy4ycLtchEtuRB3n RBTbdrbxCUEauK9xJZBfrPBi xLyxXE3lTAMndtbdh395GsOj MHB0 QQMniNAhF4MasI3dFzXfKBVa EVZlO7MviEDeRIfhZ931OLmc EgM6XBFbhcGvZ5RcTEGvqHbv OiB0 d3A1Jg5Un2MmbuwnY1OhhFDy ZuCaKmwpRFg6N2YfMclhwEG+ MP00NZIzNE92FRt9HJS9wZlm PSdi GEGuX5OftE9vOqMjGKFaMLPm Oyc+PHRhYmxlIHdpZHRoPScx LLUjIxIfbOewAT7nCb0uHKDm LWNv wVlrnFUpQgCkj4nvRFDnILvr CL2ugYgxM5JoaNW9RGFfi7n4 Sl98U59eO4IztZB+PGNvbCB3 aWR0 zS6gUvXcJwL8JJquP708MxQa fMLtEvftb2lht5chsJb5JhT0 TDTvmeDrdKmmJUF3h4UmWe55 Y29s IHdpZHRoPSIxNSUiIHZhbGln my3aaA6dAd9+CGVidGU2oAR5 nD4oUqNrPqD5HAxxT615FyAc cCIv Dpvzh2oie9ywfIz2VsBcJWGn eaUqhUwdTIK0d1RiDw89O5Sn rDkkw3GgGqd4jq75mUEjg3Z9 bGU9 D4SbGKVkckiylSNdkObwFR8d VYAfwghvKWFseZ3wJWZrG1h4 JbOlKcB2RHdoZ8QylxC6VLOt bGQg XNMuwQYFkI4fjzxew1tjfzmj CtSmGHTuWLt5IRp4OMUdkHvo WqOdLQC8ErF3SIV0pXCvpZ9l bGln hnecsJ6fKzk+EZV9xIYezYLA ER7jSmsbnAQ+DNOlDMO1oSpx AChgFBLxfS0gUVIaA0l0JuJz LjA1 KEhzY7KmciE7WINznLMgVSNg cGOUqN0wjwoei0kbbaphHjJn WZZtNBe5LWn9ZYBbtCuySsNx ZWZ0 UoD0YKV1qWUsbG4ktPxboqvs rK4vXor+AvmxvAysXDM3INz4 R3DpTsf2STWpaFnnLH1mqVUa ZGlu Qj5ghOklfUdnEK0lDRHzrswl z633CmNws5noIUTelSHpGJtl PPR8F15nv2U4QVSyYICbZLA6 dGV4 iU1rnWjslgdhyUIauCeaszDs kOmbXJnbTFszG654UQNcpUqg VbUnFUk5C5JbIot3WUGgtFdw ZT0n lCFtTUrdFc0xhRkgfFcgAO7a HCLvocyfy694KqXpn5alLJGf eYWuOUdgMDV1Y97pm4H9DBHo MDAw TDC0oRZ2vI2wsKdalyrcfFPm oPqnrnQhmWwrIKsbMLhjC270 UEPbyZngQcIwyXc4P4ZrMee2 ZCBz zHdeWC1bkWTmSNfxIu5xaXtr dFxmRZ9rIBJksceaa533BdZv d2yhDRWqaUQaGFjnDOK2F56q b3I6 GVBgMDJdLTI7aMP4pA6zyUfm bjogbGVmdDsgdmVydGljYWwt SOyuX524DMDqgQavEuHtgCmz bnQg YMekXEm0R1RuCkshjEY+PC90 AJGyJU34wQItjGPqd4pvoTa8 SvKhTVRxDNG1qEgqRUcba9Ut ZXIt H02coRNue7G6VSUfxBexnCGa KzQsbUF1rI3uZXgsnkvtq5qx heyfRmsxj8pbqe55tI39X99i IHdp CCGbOWVdNNDmDZTnlNkfde3c qW0wDt9+GKRzwSV2mST0wH0k ZVOhLiG4YItnS291XaHioBIq Pjxj b1xux3tfvMh7GdU2HBUhzkJi fRcpLUR4g2SpLy48Y28pEDmf KTWgBPYbKSMoKSKjjOranj8w dG9w Ii8+AYIwqOW3kAF5tU5cYjBo RdT3HFqfR709QnOxuJHjPmkr N75pK5IogGP+IFNiUif1RIXi dHls ZO9tnTUvRSngUe2xGGY3UvCx HkHqMUzeE8MhDSIabcqleijj fRJ7HHDmKDGtyO75Ln0sgGrs MTBw wRPVzY7tcylrb6iogaclPbGx MIFiVMo9LJv8GDJtzNssJjJi JJM8OuJ7XRM7kIMvlE9xtWce bjog tS3sR7UfBXXrtmphKo73eB6l EaHeDkJ9DVyaFsp+N9wUK39T KVQBV3qTXMt2G8ZmAde9ODAg dHls EJ6iyLUkKHzpKf8rxYtepEeq FA2fBWLylaegPPFdjU5eKPKd vBZigXngXR8yQUSikfkbg932 OiAx MXT4UVTcfAJeZ8AcdY0pIcGg YZUlMEDbF6OpvFOrYFyuF360 GDvdWnZ5GRBkzjJlD8JzESTl aWdu UbH7q8O6Jl3tOG2qFP3zEVP7 DN35JK08bONvi8R7aML3X8Vz RHUjrpvkmovwbFH7GBKxSTKk aW47 lJZqYVgrGv6cr2C5a358FBPi PAJofE20Ht3jwKlpIOWasSSL hQ2fpvcxq5jbxwavAiIvNVNl MDt0 BDy9JXMyhPomOoDnYUL0YyR6 VKO9aDCdeS0ehClpbsguwQ0u Oyc+GdbxBHJylnU1N7NyJdt1 ZCBz yMsoEZ6kcKVhAVefRl2nkIro xWvaCY8kLUJfhadbQVRisK1l RSTtsDEjjUxaTE9qEJXvduqj b250 WpHhDJK5XMBkxIUnQ2RejC5p RrVgUCRjPIIdP7SlkVIyFGun D381PWwtLpQ5QTTbgsBlB0Ma LWFs sKqdCvF0r2E8Nq5IWGoKIQ74 ER84sCDdm1E5rAZ7Y0JeBQTh yzzzwvjxiQE7UOUkSNInrB75 cGFk SZamNh0by0D6f166KEHuRBNy nY90Ki6qsVmhBOVfeKWHeV7w mzmjo2dljjnpWnEtKUYvZGt7 ZXh0 ATNzfLqbEbZyYKW3PuN4SAS5 jRRsdJ1naAlxyudmtN0mIkm+ K5Z8X3IdIwtpuDD+TZ56GSFo ZT48 aBVlrPRic7lgbNh5WkXcDDQe JMU5zWdzVKoca8DaTCBbJ27s qHMwy1D4FGKqnIzhlJKcRmRs bXB0 sP7wFYlsciblo1ebddodZkwi n5jehp28uO81X12eCLxxPQQm SXMbRMRnSSRukFbqdj4trF2g Ii8+ BEUdfHS5qAU1dX7kEvEtFvD6 JYgdQ974UpKaxMXlXzeeh9qk w7wfkVs8VgCdLNOlxxOyiZzw PSJ0 e5WtDo02W02wSWruVEPmCYQy YKWxCJExtAwxqm2rrN3aWm8+ IR6jc3bbkg33hQ68lQJ+PHRk IHN0 nHizZOuiSELxoZ3rYXyoEbX6 WIJfCaOppB49lXXsEWbvMx7m uActzBokOJ2hIKSzfrixl716 OiBi d9evTNLvfTSeBTtoRYK3D56y m4N0HVHwLRMuJPV3cFM7gU6w bGlnbjogbGVmdDsgdmVydGlj YWwt AYefB207DOEovWdzNaOtkGKi V3eeajWBGA7wEykvwBZ+PHRk JEC9tIwaFBtlLMTbaS7eVTXr Z2h0 GlMlJwI6UHwkG9LrrqA7MMZc zHVqUXQnxWQBiB8wrdfov8ou xtxqWnGyNODgRBm6EXd6WAYv aWdu QxJrSXY5MtN3JZP4vPIyiY3o fBriwkfdiN6lTnk+RklOOjwv dGQ+IKQxDHM0jBqjZKkfPBNl aW5n XKPaC2h9NsMzWaS4PJzfL4Tb nuK4WXRjfSLkRTRorGCFcL8c glwsx5jtmbtvRnAhZSXfEAz9 ZXh0 QNMrpHbrQnXuUCP3FwS7TZT3 pTCooG6sbQgtxehopH9uCmd+ TVJOOjwvdGQ+JTLbTXC6tXvk PSdw WRLymK8fZFBuD0y6BtHxAiV4 UCsrC3KxqoO3OGQgfLPgLEUy kVQHmR0rdgdev8keupxsFtLd MDAw ZOt9DDj7DMAnyWwpYzIoCXS8 IbZ8DBZ2sVHirF7ayGbulunc xC7cYoj+KFP0AXW0ZJ08LX77 L3Ry PjwvdGFibGU+PHRhYmxlIHdp HDFpWKkrWDCeApDvvLvaIB1b Bf0aUCVvNCJwsSvxcKGjLcQx b2xs YXB (more content not included)... Normal [facility] LE Art Physiological Stud y Bilateralon 06-28-2023 LE Art Physiological Study Bilateral CLINICAL HISTORY: Pain. COMPARISON: [...] MD 07/01/23 5:56 pm Technologist: DONITA CUELLAR [facility] LE Arterial Duplex Bilate ralon 06-28-2023 US LE Arterial Duplex Bilateral CLINICAL [...] >75% >400 cm/s Occlusion No color saturation Sung Ordaz, et al. Comparison of contrast angiography to arterial mapping with color flow duplex imaging in the lower extremities. J Vasc Surg 1989;10:522-32 Final Signed (Electronic Signature): Elizabeth King MD 07/01/23 5:39 pm Technologist: Maldonado GARCIA [facility] 06-27-2023 L ---- Specimen: [id number] Received: 06/27/23 Status: LENNY Gallegos Num: [id number] Spec Type: Surgical Subm Dr: Eliceo Dobson MD Tissues: A Duodenum - Biopsy (DUODENUM) B Gastric Biopsy (GASTRIC BX) Procedures: Dennis PENA/Yen L4/2 Age/ Patient Sex Location Account Attending Physician Daniele Perry/[facility] [id number] Eliceo Dobson MD SPEC NUM: [id number] RECD: 06/27/23 STATUS: LENNY GALLEGOS NUM: [id number] ROD: 06/27/23- [facility] DR: Eliceo Dobson MD ENTERED: 06/27/[address] [facility] [address]: SPEC TYPE: Surgical DEPT: S ORDERED: HE/4, Gross/Micro [...] submitted in one cassette labeled B1. Specimen: [id number] Received: 06/27/23 Status: LENNY [place] Num: [id number] Spec Type: Surgical Subm Dr: Eliceo Dobson MD Tissues: A Duodenum - Biopsy (DUODENUM) B Gastric Biopsy (GASTRIC BX) Procedures: HE/4, Gross/Micro L4/2 Patient: Daniele Perry [id number] (Continued) Specimen: [id number] Received: 06/27/23 (Continued) Signed (signature on file) Tani Lucas MD 07/01/23 1508 Specimen: [id number] Received: 06/27/23 Status: ELNNY Gallegos Num: [id number] Spec Type: Surgical Subm Dr: Eliceo Dobson MD Tissues: A Duodenum - Biopsy (DUODENUM) B Gastric Biopsy (GASTRIC BX) Procedures: Dennis PENA/Yen L4/2 Patient: Daniele Perry [id number] (Continued) Specimen: [id number] Received: 06/27/23 (Continued) Microscopic Description A. Two H E slides reviewed. The microscopic examination confirms the diagnosis. B. Two H E slides reviewed. The microscopic examination confirms the diagnosis. CPT Codes 60720z4 Specimen: [id number] Received: 06/27/23 Status: LENNY Gallegos Num: [id number] Spec Type: Surgical Subm Dr: Eliceo Dobson MD Tissues: A Duodenum - Biopsy (DUODENUM) B Gastric Biopsy (GASTRIC BX) Procedures: HE/[place], Gross/Micro L4/2 Patient: PerryDaniele [id number] (Continued) Signed (signature on file) Tani Lucas MD 07/01/23 1508 [facility] Provider Orderson 06-24-2023 Provider Orders [id number] GTIFF [facility] 04-04-2023 L ---- Specimen: [id number] Received: 04/04/23-1349 Status: LENNY Gallegos Num: [id number] Spec Type: Surgical Subm Dr: Eliceo Dobson MD Tissues: A Gastric Biopsy (GASTRIC BX) Procedures: Dennis AREVALO/Yen L4 Age/ Patient Sex Location Account Attending Physician Daniele Perry 78/M [id number] Eliceo Dobson MD SPEC NUM: [id number] RECD: 04/04/23 STATUS: LENNY GALLEGOS NUM: [id number] ROD: 04/04/[address] [facility] [address]: Eliceo Dobson MD ENTERED: 04/04/[address] [facility] [address]: SPEC TYPE: Surgical DEPT: S ORDERED: HE/2, Gross/Micro [...] microscopic examination confirms the diagnosis. CPT Codes 78836 Specimen: [id number] Received: 04/04/23 Status: LENNY Gallegos Num: [id number] Spec Type: Surgical Subm Dr: Eliceo Dobson MD Tissues: A Gastric Biopsy (GASTRIC BX) Procedures: HE/2, Gross/Micro L4 Patient: Daniele Perry [id number] (Continued) Signed (signature on file) Manda Faye MD 04/05/23 1004 [facility] Screenson 04-04-2023 Screens [id number] :127 [facility] Patient Educationon 04-03-20 Patient Education Nephrology Dietary Guidelines to Help [...] ? 8 oz (237 mL) of milk, ioxregy-zorhxgsmjyif-epj ry milk, and calcium-fortifiedfruit juice. Calcium-fortified means [...] Spinach (cooked), rhubarb, beets, sweet potatoes, and Fijian chard. ? Peanuts. ? Potato chips, jordanian fries, and baked potatoes with skin on. ? Nuts and nut products. ? Chocolate. ? If you regularly take a diuretic medicine, make sure to eat at least 1 or 2 servings of fruits or vegetables that are high in potassium each day. These include: ? Avocado. ? Banana. ? Pipestone, prune, carrot, or tomato juice. ? Baked [...] fish oil, or vitamin B6. ? Take bxsd-noy-qyegvbk and prescription medicines only as told by your health care provider. These include supplements. What foods should I limit? Limit your in (more content not included)... Normal [facility] Urology Office/Clinic Noteon 04-03-2023 Urology Office/Clinic Note [...] (N20.0: Calculus of kidney) Pt presented to [facility] ER on 04/02/22 due to RLQ pain. [...] [facility] [address], [place] [address]- Additional Instructions: 1 yr KUB Patient Education [...] 10 mg-1 (more content not included)... Normal [facility] Comment on above: Result Comment: Elec tronically Signed By: Julio FORBES MD\.br\Date and Time Signed: 04/03/23 13:23 EDT\.br\Electronically Co-Signed By: Hansa Espinoza\.br\Date and Time Co-Signed: 04/03/23 13:22 EDT Coding Summaryon 03-27-2023 Coding Summary HTMLBase 64 CtpyrfqjRDu9nWy+PGhlYWQ+ RF6GRRJcS38sfBAqiS8kD7HG TElOSywgQVBQTElOSyIgbmFt YU4fkPVpDKAs IC8+KN9jYBUnGltgtHZly1E1 uGY8T82mlx6pHCeiyEZ7TRVy QwYwhifjc9aqmNi6EOktRslx OyBt LFTykM54PAI8gL13Py78jQZs ySGkj5leaMc2DdKbBQKtMZK0 kBagECooo4OzEJQqQ98vrNHa c2U6 NGCamXcmnUCjOhGlhPD9eN6f EDwpltjbq6luplpzJnj0zd52 lPVit6E2bMT9Y2HowcE1FHMq bGQg NtnroLXGqT8xzpdes7sznmat SjMeDOOkFVf4ORr0HGMuwHtm DlSuEJ80CAS4ACEifyArV3Wb LWFs uDchEcH6q6J2Sv9KO2WPXchy J7XHUHCYOKltlNR+TO33zu41 C9WgVucmBfd0HEDeETD8iTL8 aD0n QOEmDBkjf9B5fDI5I0LglrJc gy5it1htKDMpQIwqH15awXAf g6A2XERhcOP6QZWviCqlDpPb aG93 Oyc+ZNKirXklh2HkQcmhk4yn q3iowNz9PzwjBWOzvuWieRmy YMF0f2RzDu2iMSXgrYM8oDC6 aD0i SoDwMcR7UDvrV405QvZfoJBg KwmqH67yS1LwpCX+PHRyPjx0 BPZfpHoxRU8bC2BdARVgzctq bGVm sKarXU7jUDYegcesVSFuuJ7j TOAoU4o5AmZiXqY8ZSymR2Nz NCCblihbCn78vM1pHtKqRzR5 MGlu H6ZhthE8MPOymCFzOLrkIDY2 Y18bq7M7KTNhSFLvMLZ5xPV8 rG0woPqbpsxgvIYnaSlywtPh dGlj VSpkHHpqZ691DMCfrZwgHqGx ZGluZyBEYXRlOiAgMDYvMjEv MjAyMzwvdGQ+SGAhTTY0lUak PSAn eSXiJGwwZj2bmFynrEicJV0o SDVcyymwUMEeqU0pAZMqeKNq lPimFX2tJDXwghohi067RuVx MHB0 PIXlrHSdA1LflI5hDtNzNWSz CAXoM1GjjZJvRJejB992KFly OaG7ONIyaoPnO0UgNPSuwMyt OiB0 z0J3Zj8Rm5ZfmxiqK7RstTZg PyNqNsjhYRp2C5HiLxmpyDB+ JC62BNLuYK87YTm8QOF9bYrm PSdi FDZeA4MeuN9mMkOqPCNrSHJw Oyc+PHRhYmxlIHdpZHRoPScx OHJfUgLauPrqNE7aJm7hMNHq LWNv lQoinUAdIiJoe6vrDFMtNQcn LZ8rtLllL8YfoNX3AKRcw6a2 Ln01E60jY3LtrNO+PGNvbCB3 aWR0 zN5lAdZzEqU1QIbiC518PaNj vQBlSwhpx0gdj9srnGw6JnZ7 GQUisgFuvLkgSMT7w2IaLg93 Y29s IHdpZHRoPSIxNSUiIHZhbGln hu0xkF7eTe3+LXIbgOX2zYL2 tZ1bYkPiEhU3ZOzhX766FiKi cCIv Fvtvt6itc2vksKo2IaGbSLSh lpJecSgrZOT3p5KyEb46W7Hg rAawd2DcEvq3sa67iHOef8H9 bGU9 K6KqVYIcmuzcfDKtgZltJL9u BKEfzhrkZKNrfD8oSIBwF1c1 SeZtDbG9KTmoN0ChvcB9PRIj bGQg WIKgwUKVfT9xtuxxt8crtups AgSoLZTqGAz5JHc1QLZqnFgh BtTdLCA2LgY2UAU0jOZxzI7a bGln btbvyP0xSeo+VDS6uMKmpMCB NK0wLwvzfDG+AEMiGYZ2uQqp UOrfTLFgqM3pCBHgV4w5GzUq LjA1 FRdbN8MchiW7BQBggHUhIDIk eFXIpK7mwqmog7cldbtwPiJw UDQtSOs3RMi4GGTjiKyzWoNh ZWZ0 EpT2CUI9sBFvbB0grHjrvpxa zS7pLnx+YrihtXmeDPE0CAl5 F9ArDio0YCRgmXytCR4ymNFu ZGlu Ie2dgByoiSruUO1aCNFikryb c064NlKqp9mqLEEagDUaZLsy JEG5R84sf0F8GZWbFCFsFID9 dGV4 dB0myNmgguleaXVmqUmfbaDn wFjlZHpuGTcsE366LMCamFue WvJaSXg7R4BxXac8PHXidAgm ZT0n qPGoQKliUv4laXejyPxrLL3i RVMqaktao419CnYji3acTYYx iNOfDBryPQK0A43qj5U1MJFh MDAw EXY7sVC8dD6onVvygbljzVIo iTunkpWtjFivQIorBAydI988 GJLtmKcyBpHixVy2J0OwYpr0 ZCBz xEkbNA0kkPPlVKbvUq1faYit sVklLN3cLNMnpuqxn505AvKf u3yqTHYzeKPlUBgsEIE6H64a b3I6 CPGfWSMaDVL7dWH6fB3bkZek bjogbGVmdDsgdmVydGljYWwt MHswM734TTSekCxhSfSjsFxn bnQg OZlfYGm6S7BdVwinbTC+PC90 UFNyWB61yFFmqWEtf8pgnBx6 SeCuQECkFWK9sVqaYGdqs8Af ZXIt I67ksXOkw2J5DPEebNacvJZg AtPrhNW0fY6kGOgrsyaqv8mw ftwiWggwz8fmku30tT56X91n IHdp AHWcECWkLBXjWBKizPrcei7e xV7wOm1+WWYuhVG5xYB9xH7l HTIkPlS2ZBcoC599OfHpgPMa Pjxj r2twu5vimWg8UxZ3YLQxglZz fFxyZWI0d8WzKd84W00wQJlo OJPnIAMhGXOyKLIypZxpiz2q dG9w Ii8+LMSosAU8jCB1zI5yRyIm JbW3DGyhY826CtRtbJRrYrsr S95eN4EmzBS+YXZpUln8KESm dHls ZH3crTIvFBuhSl8jGCA0ZrWv DaPeWVquY6MnBCCfplusjjgv lZC1LTXfXWWgsO95Ll3ukBed MTBw rIOOnD5nctoks4ldpzycYbXs APQmNCy7WFz5PXQfaElgLbIp ZLG2PuO9QFC9vWCxjE4xoXbz bjog zB2bW9TsNAIltdgxYv23uO6l UcMjLjM3IWrtBpe+T6lUH97A TUGAV6jEPHx5Q7SqCve9HIUx dHls OJ8qpPIiNWbqLw3yiJgoeHlb CQ9gAXNzluunPTMbmM0iEYTl iDPpcYezQK3zTTAzaaxhf393 OiAx KCE6OPEytRLpT7ZncU4dOcBk TQDrJFTtE9MmpEApFMtmE826 WGvjAzH0SCPqvwZnT7IfUWCv aWdu DhU8f0R9Aa1aJM2pNZ2yMAG1 BA23MI54aDNwa5T3qQG0E0Lu SMEnhqeoiyskgOF4PAHcYHCy aW47 hRPbVNpnBu1zm7M9i545YQYs IRQzhG82Mi0ebAxlWUSpxGFY lP1lxxuzs6cpyhsfCjGaLCKf MDt0 WDp6BRBeoNqrHdPmHXW9CmD4 FJL2wZEuhB1rfKiwwmemhN3l Oyc+DsbmCOEtkiI9K2GgUfi0 ZCBz iAinSQ9kaAYlHCydJt3bgDvz cXerSO9lGENgijlhPUNadB1p FSXhuXUxlTijPI6yQZZtoogc b250 XdJdSNL1NAVuoOVwT7IgnT4f MwKoXMMrJJGfC7YfbAOnVEsv Z775UKhuAhA3MLMhepNvT9Vi LWFs eSrvLjG1s0V0Gj6WVYqJSS85 SJ18yRRzs8L2xQA7S0SjPUZv uonlxlmhkFU7YWInAMPovH37 cGFk WCwuSj3av4L2y266OUNpKBCl rI96Cq2gtVioSSPovNKYsE2p vkrci8jfuogeJdRzXPVsOVc1 ZXh0 LUCvuZhoRjQeRMN5NbW5PNT0 tGLnzF8tqUivvivviL3cMld+ E5Y4M2YaRsnurRH+JP17DRTd ZT48 eSUosKLll8jruWf7MyTsVISj PHH0bGdeUHihe2GeKKAkU28w tJSpa4M7BCIqjFaabAXsZtHi bXB0 sF2rRLqqarocj2yneifoJujf a9uwjl46lN48B22tMNlyACAf QOTmRPNgDVHcoMxgki4xtN5v Ii8+ GIUtpGH0fRF9uG7wTgXrGeH4 ZCcjJ759NxRvhFJyDiqtn8lg i6owhWm1KdQeRUKjatXxxJef PSJ0 n4SiEj08D72rAQyqSZTwTCMz ICYdSTDtkXqffl5qgI4dKe4+ DM5dm0qwdr36aH86jDJ+PHRk IHN0 uOggIPnqYCDaoA7eJNlsTdY2 WURwKiVsrM52mNLmAWmfJr4e tGedxMjwOE1xAADgskqpq837 OiBi k0ygTBBrhAAkPTrvEYY4C39a i0T6SQTtTJEqUWN8sLF6rG9b bGlnbjogbGVmdDsgdmVydGlj YWwt HUpuT120UZJnvXhsCmDgxSIg X4svkwWWFC5vDifffRA+PHRk IEH4wZpdDJglMHQfyB0xSTMk Z2h0 PiDkHnM8VFucV9JznaH4XOJa xQXyUUOdfVEYdE4uttgcz1fz uqxwWvSaLYBzWVx4EZt9LCDj aWdu VaAaGYR4CyH6GZM8sDPzcM1p pSoxxscgpZ9kQpm+RklOOjwv dGQ+UGUnHNW6bWxpJGdvATPg aW5n TKAoM7z1WjNqMkV6EYulR7Aa msG5GEVnvKJfBFScjCBNhI6y zhiwc9pyqlptFzMjSOSqAAk5 ZXh0 OQPkaQgaGmEwKDE9TwR8PPG4 tLCldS3wdUevhmcacZ5iGot+ TVJOOjwvdGQ+BVMzPXQ3hIya PSdw KSNfsY6xJHJyX9v2OhUeFwI8 CAniL3HdteY1QWViyHLsSYLp qOELgT6isdiqu7bpkyzqYfYo MDAw JXg8AQh5FFYdhGnmNhSpFOP0 PbD4ZIV3yZGfmR6gjIbpuehh tG9iAuu+NET1KFG6CL58VF30 L3Ry PjwvdGFibGU+PHRhYmxlIHdp ZDKsBUjzYNLnXmJmuAktRB7e Uu9zCWMfYVXhbMhbaLBlNxAm b2xs YXB (more content not included)... [facility] Provider Orderson 03-27-2023 Provider Orders [id number] IFF [facility] RAD - MISCon 03-26-2023 RAD - MISC [id number]: 127 Normal [facility] XR Abdomen Single View (KUB) on 03-26-2023 XR Abdomen Single View (KUB) _Findings: 3 mm calcification upper pole right kidney. 3 mm calcification lower pole left kidney. Gas and stool in colon. No diffuse small bowel dilatation. No mass effect. Marginal osteophytes visualized lumbar spine. Impression: Bilateral renal calculi. Final Signed (Electronic Signature): Elvin Chambers MD 03/26/23 12:07 p Technologist: Juaquin SUAREZ [facility] XR wrist LT min 3V*on 2021 XR wrist LT min 3V* [facility] [employer] Other XR wrist LT min 3V* [facility] [employer] Other XR wrist LT min 3V* [address] [place] [address] [employer] Other XR wrist LT min 3V* [place] [address] [employer] Other XR wrist LT min 3V* XRay Report [place] [employer] Other XR wrist LT min 3V* Signed [employer] Other XR wrist LT min 3V* Patient: Daniele Perry MR#: [id number] [place] [employer] Other XR wrist LT min 3V* 7 [employer] Other XR wrist LT min 3V* : 1945 Acct:[id number] [employer] Other XR wrist LT min 3V* Age/Sex: 76 / M ADM Date: 11/06/21 [employer] Other XR wrist LT min 3V* Loc: [facility] Room: Type : [facility] [employer] Other XR wrist LT min 3V* Attending Dr: Trino Crain DO [employer] Other XR wrist LT min 3V* Ordering Provider: Trino Crain DO [employer] Other XR wrist LT min 3V* Date of Service: 11/06/21 [employer] Other XR wrist LT min 3V* XR/XR wrist LT min 3V*: Left wrist pain [employer] Other XR wrist LT min 3V* Copies to: Trino Quintana Breann, DO [employer] Other XR wrist LT min 3V* Left wrist 4 views. 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 No known injury. [employer] Other XR wrist LT min 3V* COMPARISON: None. [employer] Other XR wrist LT min 3V* FINDINGS: No focal s oft tissue abnormality is seen. Chondrocalcinosis involving the TFCC. No acute [employer] Other XR wrist LT min 3V* bony process is note d. Degenerative changes of the carpal bones including the CMC joint of the [employer] Other XR wrist LT min 3V* thumb. [employer] Other XR wrist LT min 3V* X R/XR wrist LT min 3V* [employer] Other XR wrist LT min 3V* Impression: No acute bony process is seen. Degenerative change. [employer] Other XR wrist LT min 3V* Impression dictated by: Gil Romero Jr. DLuisaOLuisa11/06/2021 4:21 PM [employer] Other XR wrist LT min 3V* Dictation Location: [place] [address] [employer] Other XR wrist LT min 3V* Transcribed By: RANDI 11/06/21 1621 [employer] Other XR wrist LT min 3V* Dictated By: Gil Romero Jr, DO 11/06/21 1620 [employer] Other XR wrist LT min 3V* Signed By: [employer] Other XR wrist LT min 3V* 11/06/21 1621 No rt [employer] Other CALCULI, URINARYon 0 2,8 Dihydroxyadenine Normal [facility] Comment on above: Performed By: #### C BC #### [facility] [address] [place] [address] [place] Ammonium Acid Urate Normal [facility] Comment on above: Performed By: #### C BC #### [facility] [address] [place] [address] [place] Bilirubin [Mass/Vol] Normal [facility] Comment on above: Performed By: #### C BC #### [facility] [address] [address] [place] Ca Oxalate Dihydrate 30 % Normal [facility] Comment on above: Performed By: #### C BC #### [facility] [address] [address] [place] CaHPO4 (Brushite) Normal [facility] Comment on above: Performed By: #### C BC #### [facility] [facility] [address] [place], [place] [id number] Sb [place] Calcium Bilirubinate Normal [facility] Comment on above: Performed By: #### C BC #### [facility] [address] [place] [address] S[place] Calcium Carbonate Normal [facility] Comment on above: Performed By: #### C BC #### [facility] [address] [place] [address] S[place] Calcium Oxalate Monohydrate 70 % Normal [facility] Comment on above: Performed By: #### C BC #### [facility] [address] [place], [place] [address] S[place] Calcium Palmitate Normal [facility] Comment on above: Performed By: #### C BC #### [facility] [address] [address] S[place] Calcium Phosphate Normal [facility] Comment on above: Performed By: #### C BC #### [facility] [address] [address] S[place] Calcium Stearate Normal [facility] Comment on above: Performed By: #### C BC #### [facility] [address] [address] [place] Carbonate Apatite Normal [facility] Comment on above: Performed By: #### C BC #### [facility] [address] [address] S[place] Cellular Material Normal [facility] Comment on above: Performed By: #### C BC #### [facility] [address] [place] [address] S[place] Cholesterol [Mass/Vol] Normal [facility] Comment on above: Performed By: #### C BC #### [facility] [address] [address] [place] Color (U) Black Normal [facility] Comment on above: Performed By: #### C BC #### [facility] [address] [address] [place] Comment Normal [facility] Comment on above: Performed By: #### C BC #### [facility] [address] [address] S[place] Comment: Comment Normal [facility] Comment on above: Result Comment: Dillan kraft questions regarding Calculi Analysis contact [facility] at: [phone]. Performed By: #### C BC #### [facility] [address] [address] S[place] Composition Comment Normal [facility] Comment on above: Result Comment: Perc entage (Represents the % composition) Performed By: #### C BC #### [facility] [address] [place] [address] Sb [place] Cystine Normal [facility] Comment on above: Performed By: #### C BC #### [facility] [address] [place] [address] S[place] Disclaimer: Comment [facility] Comment on above: Result Comment: This test was developed and its performance characteristics determined by [facility]. It has not been cleared or approved by the Food and Drug Administration. Performed By: #### C BC #### [facility] [address] [place] [address] [place] Dried Blood Normal [facility] Comment on above: Performed By: #### C BC #### [facility] [address] [place] [address] [place] Drug or Metabolite Normal [facility] Comment on above: Performed By: #### C BC #### [facility] [address] [place] [address] [place] Hydroxyapatite Normal [facility] Comment on above: Performed By: #### C BC #### [facility] [address] [place] [address] [place] Mg NH4 PO4 (Struvite) Normal [facility] Comment on above: Performed By: #### C BC #### [facility] [address] [place] [address] S[place] MgHPO4 (Newberyite) Normal [facility] Comment on above: Performed By: #### C BC #### [facility] [address] [place] [address] S[place] Other component(s) Normal [facility] Comment on above: Performed By: #### C BC #### [facility] [address] [place] [address] S[place] PDF . Normal [facility] Comment on above: Performed By: #### C BC #### [facility] [address] [place] [address] S[place] Photo Comment Normal [facility] Comment on above: Result Comment: Phot ograph will follow under a separate cover Performed By: #### C BC #### [facility] [address] [place] [address] S[place] Please note: Comment Normal [facility] Comment on above: Result Comment: Calc pee report will follow via computer, mail or green end man delivery. Performed By: #### C BC #### [facility] [address] [address] Sb Weinstein Size 2x2 Normal [facility] Comment on above: Result Comment: Mult iple pieces received. Dimensions of the largest piece reported. Performed By: #### C BC #### [facility] [address] [address] [place] Sodium (U) [Moles/Vol] Normal [facility] Comment on above: Performed By: #### C BC #### [facility] [address] [place] [address] S[place] Source Comment Normal [facility] Comment on above: Result Comment: Not provided Performed By: #### C BC #### [facility] [address] [place] [address] Sbarabella Richardsonen Triamterene Normal [facility] Comment on above: Performed By: #### C BC #### [facility] [address] [address] Sb Weinstein Urate [Mass/Vol] Normal [facility] Comment on above: Performed By: #### C BC #### [facility] [address] [place] [address] Sbarabella Weinstein Uric Acid Dihydrate Normal [facility] Comment on above: Performed By: #### C BC #### [facility] [address] [address] Sbarabella Weinstein Weight 4 mg Normal [facility] Comment on above: Performed By: #### C BC #### [facility] [address] [address] [place] Xanthine Normal [facility] Comment on above: Performed By: #### C BC #### [facility] [address] [place] [address] S[place] CBC AUTO DIFFon 04-07-2020 Basophils (Bld) [#/Vol] 0.1 103/ul Normal 0.0-0.1 [facility] Comment on above: Performed By: #### C BC #### [facility] [address] [place], [place] [address] Sb [place] Basophils/100 WBC (Bld) 0.6 % Normal 0.2-2.0 [facility] Comment on above: Performed By: #### C BC #### [facility] [address] [place], [place] [address] [place] Eosinophils (Bld) [#/Vol] 0.3 103/ul Normal 0.0-0.7 [facility] Comment on above: Performed By: #### C BC #### [facility] [address] [place], [place] [address] S[place] Eosinophils/100 WBC (Bld) 3.6 % Normal 0.9-7.0 [facility] Comment on above: Performed By: #### C BC #### [facility] [address] [place], [place] [address] [place] Erythrocyte distribution width (RBC) [Ratio] 14.5 % Normal 11.0-15.0 [facility] Comment on above: Performed By: #### C BC #### [facility] [address] [place], [place] [address] S[place] Hematocrit (Bld) [Volume fraction] 54.1 % Critically high 42.0-54.0 [facility] Comment on above: Performed By: #### C BC #### [facility] [address] [place], [place] [address] [place] Hemoglobin (Bld) [Mass/Vol] 17.2 g/dL Normal 14.0-18.0 [facility] Comment on above: Performed By: #### C BC #### [facility] [address] [place], [place] [address] S[place] IG # 0.02 10e3/ul Normal 0.00-0.03 [facility] Comment on above: Performed By: #### C BC #### [facility] [address] [place], [place] [address] S[place] IG % 0.2 % Normal 0.0-0.5 [facility] Comment on above: Performed By: #### C BC #### [facility] [address] [place], [place] [address] S[place] Lymphocytes (Bld) [#/Vol] 2.7 103/ul Normal 1.2-3.8 [facility] Comment on above: Performed By: #### C BC #### [facility] [address] [place], [place] [address] S[place] Lymphocytes/100 WBC (Bld) 32.0 % Normal 20.5-60.0 [facility] Comment on above: Performed By: #### C BC #### [facility] [address] [place], [place] [address] S[place] MANUAL DIFF REQ NO Normal [facility] Comment on above: Performed By: #### C BC #### [facility] [address] [place] [address] S[place] MCH (RBC) [Entitic mass] 29.6 pg Normal 25.9-34.0 [facility] Comment on above: Performed By: #### C BC #### [facility] [address] [place] [address] S[place] MCHC (RBC) [Mass/Vol] 31.8 g/dL Normal 29.9-35.2 [facility] Comment on above: Performed By: #### C BC #### [facility] [address] [place] [address] S[place] MCV (RBC) [Entitic vol] 93.1 fL Normal 80.0-94.0 [facility] Comment on above: Performed By: #### C BC #### [facility] [address] [place], [place] [address] S[place] Monocytes (Bld) [#/Vol] 0.9 103/ul Critically high 0.3-0.8 [facility] Comment on above: Performed By: #### C BC #### [facility] [address] [place], [place] [address] S[place] Monocytes/100 WBC (Bld) 11.1 % Normal 1.7-12.0 [facility] Comment on above: Performed By: #### C BC #### [facility] [address] [place], [place] [address] S[place] Neutrophils (Bld) [#/Vol] 4.3 103/ul Normal 1.4-6.5 [facility] Comment on above: Performed By: #### C BC #### [facility] [address] [place], [place] [address] S[place] Neutrophils/100 WBC (Bld) 52.5 % Normal 43.0-75.0 [facility] Comment on above: Performed By: #### C BC #### [facility] [address] [place], [place] [address] S[place] Platelet mean volume (Bld) [Entitic vol] 11.0 fL Normal 9.5-13.5 [facility] Comment on above: Performed By: #### C BC #### [facility] [address] [place] [address] S[place] Platelets (Bld) [#/Vol] 232 103/ul Normal 150-450 [facility] Comment on above: Performed By: #### C BC #### [facility] [address] [place] [address] S[place] RBC (Bld) [#/Vol] 5.81 106/ul Normal 4.70-6.10 [facility] Comment on above: Performed By: #### C BC #### [facility] [address] [place], [place] [address] S[place] WBC (Bld) [#/Vol] 8.3 103/ul Normal 4.0-11.0 [facility] Comment on above: Performed By: #### C BC #### [facility] [address] [place] [address] Sb Weinstein PROF CHEM 8 (BAS METB)on Anion gap [Moles/Vol] 8.7 mmol/L Normal [facility] Comment on above: Performed By: #### B MP #### [facility] [address] [place] [address] S[place] Calcium [Mass/Vol] 8.8 mg/dL Normal 8.4-10.2 [facility] Comment on above: Performed By: #### B MP #### [facility] [address] [address] [place] Chloride [Moles/Vol] 104 mmol/L Normal 98-107 [facility] Comment on above: Performed By: #### B MP #### [facility] [address] [address] S[place] CO2 [Moles/Vol] 32.5 mmol/L Critically high 22.0-30.0 [facility] Comment on above: Performed By: #### B MP #### [facility] [address] [place] [address] S[place] Creatinine [Mass/Vol] 1.21 mg/dL Normal 0.66-1.25 [facility] Comment on above: Performed By: #### B MP #### [facility] [address] [place] [address] [place] EGFR-AF CONGOLESE >60 Normal >=60 [facility] Comment on above: Performed By: #### B MP #### [facility] [address] [place] [address] [place] EGFR-NON AF CONGOLESE 58 mL/min/1.73m2 Critically low >=60 [facility] Comment on above: Performed By: #### B MP #### [facility] [address] [place] [address] S[place] Glucose [Mass/Vol] 89 mg/dL Normal 74-106 [facility] Comment on above: Performed By: #### B MP #### [facility] [address] [place] [address] S[place] Potassium [Moles/Vol] 4.2 mmol/L Normal 3.4-5.0 [facility] Comment on above: Performed By: #### B MP #### [facility] [address] [place] [address] S[place] Sodium [Moles/Vol] 141 mmol/L Normal 137-145 [facility] Comment on above: Performed By: #### B MP #### [facility] [address] [place], [place] [address] S[place] Urea nitrogen [Mass/Vol] 15.0 mg/dL Normal 9.0-20.0 [facility] Comment on above: Performed By: #### B MP #### [facility] [address] [id number] [place] Urea nitrogen/Creatinine [Mass ratio] 12.4 mg/mg Normal [facility] Comment on above: Performed By: #### B MP #### [facility] [address] [address] S[place] PROTIMEon 04-07-2020 INR Coag (PPP) [Relative time] 1.11 {INR} Normal [facility] Comment on above: Performed By: #### P T, PTT #### [facility] [address] [place], [place] [address] S[place] PT Coag (PPP) [Time] SEE BELOW Normal [facility] Comment on above: Result Comment: VENKATESH RED INR: 2.0 - 3.0 CONDITIONS NOT LISTED BELOW 2.5 - 3.5 FOR PROSTHETIC HEART VALVE REPLACEMENT 2.5 - 3.5 RECURRENT THROMBOSIS Performed By: #### P T, PTT #### [facility] [address] [place], [place] [address] S[place] PT Coag (PPP) [Time] 11.5 s Normal 9.0-11.6 [facility] Comment on above: Performed By: #### P T, PTT #### [facility] [address] [place], [place] [address] S[place] PT Coag (PPP) [Time] PLEASE NOTE: NORMAL RANGE CHANGE 06-24-2014 DUE TO REAGENT LOT CHANGE Normal [facility] Comment on above: Performed By: #### P T, PTT #### [facility] [address] [place], [place] [address] Sbarabella Weinstein PTTon 04-07-2020 aPTT Coag (Bld) [Time] 28.8 s Normal 22.3-36.2 [facility] Comment on above: Performed By: #### P T, PTT #### [facility] [address] [place], [place] [address] S[place] aPTT Coag (Bld) [Time] PLEASE NOTE: NORMAL RANGE CHANGE 08-31-2015 DUE TO REAGENT LOT CHANGE Normal [facility] Comment on above: Performed By: #### P T, PTT #### [facility] [address] [place], [place] [address] S[place] XR KUB 1 VIEWon 04-07-2020 XR KUB [...] ELIZABETH PERALES Date: 2020-04-07 11:55 Normal [facility] CBC AUTO DIFFon 03-10-2020 Basophils (Bld) [#/Vol] 0.1 103/ul Normal 0.0-0.1 [facility] Comment on above: Performed By: #### C BC #### [facility] [address] [place] [address] Sb [place] Basophils/100 WBC (Bld) 0.6 % Normal 0.2-2.0 [facility] Comment on above: Performed By: #### C BC #### [facility] [address] [place] [address] Sb [place] Eosinophils (Bld) [#/Vol] 0.3 103/ul Normal 0.0-0.7 [facility] Comment on above: Performed By: #### C BC #### [facility] [address] [place] [address] Sb [place] Eosinophils/100 WBC (Bld) 4.1 % Normal 0.9-7.0 [facility] Comment on above: Performed By: #### C BC #### [facility] [address] [place], [place] [address] Sb [place] Erythrocyte distribution width (RBC) [Ratio] 15.9 % Critically high 11.0-15.0 [facility] Comment on above: Performed By: #### C BC #### [facility] [address] [place], [place] [address] Sb [place] Hematocrit (Bld) [Volume fraction] 57.1 % Critically high 42.0-54.0 [facility] Comment on above: Performed By: #### C BC #### [facility] [address] [place], [place] [address] S[place] Hemoglobin (Bld) [Mass/Vol] 18.0 g/dL Normal 14.0-18.0 [facility] Comment on above: Performed By: #### C BC #### [facility] [address] [place] [address] Sb [place] IG # 0.03 10e3/ul Normal 0.00-0.03 [facility] Comment on above: Performed By: #### C BC #### [facility] [address] [place], [place] [address] Sb [place] IG % 0.4 % Normal 0.0-0.5 [facility] Comment on above: Performed By: #### C BC #### [facility] [address] [place], [place] [address] Sb [place] Lymphocytes (Bld) [#/Vol] 2.3 103/ul Normal 1.2-3.8 [facility] Comment on above: Performed By: #### C BC #### [facility] [address] [place], [place] [address] Sb [place] Lymphocytes/100 WBC (Bld) 29.4 % Normal 20.5-60.0 [facility] Comment on above: Performed By: #### C BC #### [facility] [address] [place], [place] [address] S[place] MANUAL DIFF REQ NO Normal [facility] Comment on above: Performed By: #### C BC #### [facility] [address] [place], [place] [address] Sb [place] MCH (RBC) [Entitic mass] 29.0 pg Normal 25.9-34.0 [facility] Comment on above: Performed By: #### C BC #### [facility] [address] [place], [place] [address] Sb Weinstein MCHC (RBC) [Mass/Vol] 31.5 g/dL Normal 29.9-35.2 [facility] Comment on above: Performed By: #### C BC #### [facility] [address] [id number] Sbarabella Weinstein MCV (RBC) [Entitic vol] 91.9 fL Normal 80.0-94.0 [facility] Comment on above: Performed By: #### C BC #### [facility] [address] [place], [place] [address] Sb [place] Monocytes (Bld) [#/Vol] 0.8 103/ul Normal 0.3-0.8 [facility] Comment on above: Performed By: #### C BC #### [facility] [address] [place], [place] [address] Sbarabella Richardsonen Monocytes/100 WBC (Bld) 10.4 % Normal 1.7-12.0 [facility] Comment on above: Performed By: #### C BC #### [facility] [address] [place] [address] Sb [place] Neutrophils (Bld) [#/Vol] 4.3 103/ul Normal 1.4-6.5 [facility] Comment on above: Performed By: #### C BC #### [facility] [address] [place], [place] [address] Sb [place] Neutrophils/100 WBC (Bld) 55.1 % Normal 43.0-75.0 [facility] Comment on above: Performed By: #### C BC #### [facility] [address] [place] [address] Sb [place] Platelet mean volume (Bld) [Entitic vol] 10.8 fL Normal 9.5-13.5 [facility] Comment on above: Performed By: #### C BC #### [facility] [address] [place], [place] [address] Sb [place] Platelets (Bld) [#/Vol] 183 103/ul Normal 150-450 [facility] Comment on above: Performed By: #### C BC #### [facility] [address] [place], [place] [address] Sb [place] RBC (Bld) [#/Vol] 6.21 106/ul Critically high 4.70-6.10 [facility] Comment on above: Performed By: #### C BC #### [facility] [address] [place], [place] [address] Sb [place] WBC (Bld) [#/Vol] 7.8 103/ul Normal 4.0-11.0 [facility] Comment on above: Performed By: #### C BC #### [facility] [address] [place] [address] Sb Corinan PROF CHEM 8 (BAS METB)on Anion gap [Moles/Vol] 16.6 mmol/L Normal [facility] Comment on above: Performed By: #### B MP #### [facility] [address] [place] [address] Sb [place] Calcium [Mass/Vol] 9.2 mg/dL Normal 8.4-10.2 [facility] Comment on above: Performed By: #### B MP #### [facility] [address] [place] [address] Sb [place] Chloride [Moles/Vol] 102 mmol/L Normal 98-107 [facility] Comment on above: Performed By: #### B MP #### [facility] [address] [place] [address] Sb [place] CO2 [Moles/Vol] 27.0 mmol/L Normal 22.0-30.0 [facility] Comment on above: Performed By: #### B MP #### [facility] [address] [place], [place] [id number] [place] Creatinine [Mass/Vol] 1.22 mg/dL Normal 0.66-1.25 [facility] Comment on above: Performed By: #### B MP #### [facility] [address] [id number] [place] EGFR-AF CONGOLESE >60 Normal >=60 [facility] Comment on above: Performed By: #### B MP #### [facility] [address] [id number] [place] EGFR-NON AF CONGOLESE 58 mL/min/1.73m2 Critically low >=60 [facility] Comment on above: Performed By: #### B MP #### [facility] [address] [address] [place] Glucose [Mass/Vol] 100 mg/dL Normal 74-106 [facility] Comment on above: Performed By: #### B MP #### [facility] [address] [place] [address] [place] Potassium [Moles/Vol] 4.6 mmol/L Normal 3.4-5.0 [facility] Comment on above: Performed By: #### B MP #### [facility] [address] [address] [place] Sodium [Moles/Vol] 141 mmol/L Normal 137-145 [facility] Comment on above: Performed By: #### B MP #### [facility] [address] [place] [address] [place] Urea nitrogen [Mass/Vol] 15.0 mg/dL Normal 9.0-20.0 [facility] Comment on above: Performed By: #### B MP #### [facility] [address] [place] [address] [place] Urea nitrogen/Creatinine [Mass ratio] 12.3 mg/mg Normal [facility] Comment on above: Performed By: #### B MP #### [facility] [address] [place], [place] [id number] [place] PROTIMEon 03-10-2020 INR Coag (PPP) [Relative time] 1.03 {INR} Normal [facility] Comment on above: Performed By: #### P TT, PT #### [facility] [address] [place], [place] [address] [place] PT Coag (PPP) [Time] SEE BELOW Normal [facility] Comment on above: Result Comment: VENKATESH RED INR: 2.0 - 3.0 CONDITIONS NOT LISTED BELOW 2.5 - 3.5 FOR PROSTHETIC HEART VALVE REPLACEMENT 2.5 - 3.5 RECURRENT THROMBOSIS Performed By: #### P TT, PT #### [facility] [address] [place] [address] [place] PT Coag (PPP) [Time] PLEASE NOTE: NORMAL RANGE CHANGE 06-24-2014 DUE TO REAGENT LOT CHANGE Normal [facility] Comment on above: Performed By: #### P TT, PT #### [facility] [address] [place] [address] [place] PT Coag (PPP) [Time] 10.7 s Normal 9.0-11.6 [facility] Comment on above: Performed By: #### P TT, PT #### [facility] [address] [place], [place] [id number] [place] PTTon 03-10-2020 aPTT Coag (Bld) [Time] 27.2 s Normal 22.3-36.2 [facility] Comment on above: Performed By: #### P TT, PT #### [facility] [address] [place], [place] [id number] [place] aPTT Coag (Bld) [Time] PLEASE NOTE: NORMAL RANGE CHANGE 08-31-2015 DUE TO REAGENT LOT CHANGE Normal [facility] Comment on above: Performed By: #### P TT, PT #### [facility] [address] [place], [place] [id number] [place] XR KUB 1 VIEWon 03-10-2020 [...] IMPRESSION: Bilateral nephrolithiasis Electronically authenticated by: NELA Edouard: 2020-03-10 09:41 Normal [facility] CALCULI, URINARYon 0 2,8 Dihydroxyadenine Normal [facility] Comment on above: Performed By: #### C ALCULI #### [facility] [address] [address] [place] Ammonium Acid Urate Normal [facility] Comment on above: Performed By: #### C ALCULI #### [facility] [address] [address] [place] Bilirubin [Mass/Vol] Normal [facility] Comment on above: Performed By: #### C ALCULI #### [facility] [address] [address] [place] Ca Oxalate Dihydrate 10 % Normal [facility] Comment on above: Performed By: #### C ALCULI #### [facility] [address] [address] [place] CaHPO4 (Brushite) Normal [facility] Comment on above: Performed By: #### C ALCULI #### [facility] [address] [address] [place] Calcium Bilirubinate Normal [facility] Comment on above: Performed By: #### C ALCULI #### [facility] [address] [address] [place] Calcium Carbonate Normal [facility] Comment on above: Performed By: #### C ALCULI #### [facility] [address] [address] [place] Calcium Oxalate Monohydrate 90 % Normal [facility] Comment on above: Performed By: #### C ALCULI #### [facility] [address] [address] [place] Calcium Palmitate Normal [facility] Comment on above: Performed By: #### C ALCULI #### [facility] [address] [address] [place] Calcium Phosphate Normal [facility] Comment on above: Performed By: #### C ALCULI #### [facility] [address] [address] [place] Calcium Stearate Normal [facility] Comment on above: Performed By: #### C ALCULI #### [facility] [address] [address] [place] Carbonate Apatite Normal [facility] Comment on above: Performed By: #### C ALCULI #### [facility] [address] [address] [place] Cellular Material Normal [facility] Comment on above: Performed By: #### C ALCULI #### [facility] [address] [address] [place] Cholesterol [Mass/Vol] Normal [facility] Comment on above: Performed By: #### C ALCULI #### [facility] [address] [address] [place] Color (U) Tiwari Normal [facility] Comment on above: Performed By: #### C ALCULI #### [facility] [address] [address] [place] Comment Normal [facility] Comment on above: Performed By: #### C ALCULI #### [facility] [address] [address] [place] Comment: Comment Normal [facility] Comment on above: Result Comment: Phys swapnil questions regarding Calculi Analysis contact [facility] at: [phone]. Performed By: #### C ALCULI #### [facility] [address] [address] [place] Composition Comment Normal [facility] Comment on above: Result Comment: Perc entage (Represents the % composition) Performed By: #### C ALCULI #### [facility] [address] [place] [address] [place] Cystine Normal [facility] Comment on above: Performed By: #### C ALCULI #### [facility] [address] [address] [place] Disclaimer: Comment Normal [facility] Comment on above: Result Comment: This test was developed and its performance characteristics determined by [facility]. It has not been cleared or approved by the Food and Drug Administration. Performed By: #### C ALCPEE #### [facility] [address] [place] [address] [place] Dried Blood Normal [facility] Comment on above: Performed By: #### C ALCPEE #### [facility] [address] [place] [address] [place] Drug or Metabolite Normal [facility] Comment on above: Performed By: #### C ALCULI #### [facility] [address] [place] [address] [place] Hydroxyapatite Normal [facility] Comment on above: Performed By: #### C ALCPEE #### [facility] [address] [place] [address] [place] Mg NH4 PO4 (Struvite) Normal [facility] Comment on above: Performed By: #### C ALCPEE #### [facility] [address] [place] [address] [place] MgHPO4 (Newberyite) Normal [facility] Comment on above: Performed By: #### C ALCPEE #### [facility] [address] [place] [address] [place] Other component(s) Normal [facility] Comment on above: Performed By: #### C ALCPEE #### [facility] [address] [place] [address] [place] PDF . Normal [facility] Comment on above: Performed By: #### C ALCULI #### [facility] [address] [place] [address] [place] Photo Comment Normal [facility] Comment on above: Result Comment: Phot ograph will follow under a separate cover Performed By: #### C ALCPEE #### [facility] [address] [place] [address] [place] Please note: Comment [facility] Comment on above: Result Comment: Calc pee report will follow via computer, mail or green end man delivery. Performed By: #### C ALCULI #### [facility] [address] [address] [place] Size 4x3 Normal [facility] Comment on above: Result Comment: Eduardo evans piece received. Performed By: #### C ALCULI #### [facility] [address] [address] [place] Sodium (U) [Moles/Vol] Normal [facility] Comment on above: Performed By: #### C ALCULI #### [facility] [address] [address] [place] Source Comment Normal [facility] Comment on above: Result Comment: Left Ureter Performed By: #### C ALCULI #### [facility] [address] [address] [place] [facility] Comment on above: Performed By: #### C ALCULI #### [facility] [address] [address] [place] Urate [Mass/Vol] Normal [facility] Comment on above: Performed By: #### C ALCULI #### [facility] [address] [address] [place] Uric Acid Dihydrate Normal [facility] Comment on above: Performed By: #### C ALCULI #### [facility] [address] [address] [place] Weight 32 mg Normal [facility] Comment on above: Performed By: #### C ALCULI #### [facility] [address] [address] [place] Xanthine Normal [facility] Comment on above: Performed By: #### C ALCULI #### [facility] [address] [id number] [place] Lipid Panelon 01-27-2019 Cholesterol in HDL mass conc 34 mg/dL Low 40-59 [facility] Comment on above: Result Comment: ATP III [...] CHD Performed By: #### L IPID #### [facility] [address] [place] [address] Cholesterol in LDL mass conc 114 mg/dL Normal 0-129 [facility] Comment on above: Result Comment: ATP III LDL Classification is Near Optimal. Performed By: #### L IPID #### [facility] [address] [place] [address] Cholesterol mass conc 170 mg/dL Normal 0-199 [facility] Comment on above: Result Comment: ATP III Cholesterol classification is Desirable. Performed By: #### L IPID #### [facility] [address] [place] [address] Triglyceride mass conc 112 mg/dL Normal 0-150 [facility] Comment on above: Result Comment: ATP III Triglycerides Classification is Normal. Effective: 11/13/2018 New reference range for this analyte has been established. Performed By: #### L IPID #### [facility] [address] [place] [address] VITAMIN Don 01-27-2019 VITAMIN D 34.2 ng/mL Normal 30.0-100.0 [facility] Comment on above: Result Comment: (30- 100 ng/mL) Optimum Level This assay accurately quantifies the sum of vitamin D3, 25-Hydroxy and vitamin D2, 25-Hyroxy. Performed By: #### V ITD #### [facility] [address] [place] [address] Vitamin B12 and Folateon Cobalamin (Vitamin B12) mass conc 886 pg/mL Normal 232-1245 [facility] Comment on above: Performed By: #### B 12FO #### [facility] [address] [place] [address] Folate >20.0 Normal 7.3-26.1 [facility] Comment on above: Result Comment: As o f 16, the methodology has changed. Results from this methodology should not be compared with results from previous methodology. Performed By: #### B 12FO #### [facility] [address] [place] [address] Acetaminophenon 01-26-2019 Acetaminophen mass conc <5 Low 10-30 [facility] Comment on above: Performed By: #### A CETM #### [facility] [address] [place] [address] Alcoholon 01-26-2019 Ethanol mass conc mg/dL Normal [facility] Comment on above: Performed By: #### A LCOH #### [facility] [address] [place] [address] Ethanol mass conc Not indicated Normal [facility] Comment on above: Performed By: #### A LCOH #### [facility] [address] [place] [address] CBC With Platelet and Differ entialon 01-26-2019 Basophils #/vol (Bld) 0.1 10*3/uL Normal 0.0-0.2 [facility] Comment on above: Performed By: #### C BCWD #### [facility] [address] [place] [address] Basophils/100 WBC (Bld) 0.9 % Normal [facility] Comment on above: Performed By: #### C BCWD #### [facility] [address] [place] [address] Eosinophils #/vol (Bld) 0.2 10*3/uL Normal 0.0-0.7 [facility] Comment on above: Performed By: #### C BCWD #### [facility] [address] [place] [address] Eosinophils/100 WBC (Bld) 2.2 % Normal [facility] Comment on above: Performed By: #### C BCWD #### [facility] [address] [place] [address] Erythrocyte distribution width Ratio (RBC) 13.9 % Normal 11.5-14.5 [facility] Comment on above: Performed By: #### C BCWD #### [facility] [address] [place] [address] Hematocrit Volume Fraction (Bld) 55.4 % Critically high 42.0-52.0 [facility] Comment on above: Performed By: #### C BCWD #### [facility] [address] [place] [address] Hemoglobin mass conc (Bld) 18.3 g/dL Critically high 14.0-18.0 [facility] Comment on above: Performed By: #### C BCWD #### [facility] [address] [place] [address] Lymphocytes #/vol (Bld) 2.4 10*3/uL Normal 1.0-4.8 [facility] Comment on above: Performed By: #### C BCWD #### [facility] [address] [place] [address] Lymphocytes/100 WBC (Bld) 26.2 % Normal [facility] Comment on above: Performed By: #### C BCWD #### [facility] [address] [place] [address] MCH Entitic mass (RBC) 31.2 pg Normal 27.0-31.3 [facility] Comment on above: Performed By: #### C BCWD #### [facility] [address] [place] [address] MCHC mass conc (RBC) 33.0 % Normal 33.0-37.0 [facility] Comment on above: Performed By: #### C BCWD #### [facility] [address] [place] [address] MCV Entitic volume (RBC) 94.7 fL Normal 80.0-100.0 [facility] Comment on above: Performed By: #### C BCWD #### [facility] [address] [place] [address] Monocytes #/vol (Bld) 0.9 10*3/uL Critically high 0.2-0.8 [facility] Comment on above: Performed By: #### C BCWD #### [facility] [address] [place] [address] Monocytes/100 WBC (Bld) 9.6 % Normal [facility] Comment on above: Performed By: #### C BCWD #### [facility] [address] [place] [address] Neutrophils #/vol (Bld) 5.6 10*3/uL Normal 1.4-6.5 [facility] Comment on above: Performed By: #### C BCWD #### [facility] [address] [place] [address] Neutrophils/100 WBC (Bld) 61.1 % Normal [facility] Comment on above: Performed By: #### C BCWD #### [facility] [address] [place] [address] Platelets #/vol (Bld) 176 10*3/uL Normal 130-400 [facility] Comment on above: Performed By: #### C BCWD #### [facility] [address] [place] [address] RBC #/vol (Bld) 5.85 10*6/uL Normal 4.70-6.10 [facility] Comment on above: Performed By: #### C BCWD #### [facility] [address] [place] [address] WBC #/vol (Bld) 9.2 10*3/uL Normal 4.8-10.8 [facility] Comment on above: Performed By: #### C BCWD #### [facility] [address] [place] [address] Comprehensive Metabolic Pane manuel 01-26-2019 Anion gap molar conc 12 mmol/L Normal 9-15 [facility] Comment on above: Result Comment: Effe ctive: 11/13/2018 New reference range for this analyte has been established. Performed By: #### C MP #### [facility] [address] [place] [address] Albumin mass conc 4.1 g/dL Normal 3.5-4.6 [facility] Comment on above: Result Comment: Effe ctive: 11/13/2018 New reference range for this analyte has been established. Performed By: #### C MP #### [facility] [address] [place] [address] ALP enzyme act/vol 77 U/L Normal 35-104 [facility] Comment on above: Performed By: #### C MP #### [facility] [address] [place] [address] ALT enzyme act/vol 28 U/L Normal 0-41 [facility] Comment on above: Performed By: #### C MP #### [facility] [address] [place] [address] AST enzyme act/vol 23 U/L Normal 0-40 [facility] Comment on above: Performed By: #### C MP #### [facility] [address] [place] [address] Bilirubin mass conc 0.8 mg/dL Critically high 0.2-0.7 [facility] Comment on above: Result Comment: Effe ctive: 11/13/2018 New reference range for this analyte has been established. Performed By: #### C MP #### [facility] [address] [place] [address] Calcium mass conc 9.3 mg/dL Normal 8.5-9.9 [facility] Comment on above: Result Comment: Effe ctive: 11/13/2018 New reference range for this analyte has been established. Performed By: #### C MP #### [facility] [address] [place] [address] Chloride molar conc 100 mmol/L Normal 95-107 [facility] Comment on above: Result Comment: Effe ctive: 11/13/2018 New reference range for this analyte has been established. Performed By: #### C MP #### [facility] [address] [place] [address] CO2 molar conc 26 mmol/L Normal 20-31 [facility] Comment on above: Result Comment: Effe ctive: 11/13/2018 New reference range for this analyte has been established. Performed By: #### C MP #### [facility] [address] [place] [address] Creatinine mass conc 1.02 mg/dL Normal 0.70-1.20 [facility] Comment on above: Performed By: #### C MP #### [facility] [address] [place] [address] GFR/1.73 sq M predicted among blacks MDRD vol rate/area (S/P/Bld) mL/min/{1.73_m2} Normal >60 [facility] Comment on above: Result Comment: >60 mL/min/1.73m2 EGFR, calc. for ages 18 and older using the MDRD formula (not corrected for weight), is valid for stable renal function. Performed By: #### C MP #### [facility] [address] [place] [address] GFR/1.73 sq M.predicted MDRD vol rate/area mL/min/{1.73_m2} Normal >60 [facility] Comment on above: Result Comment: >60 mL/min/1.73m2 EGFR, calc. for ages 18 and older using the MDRD formula (not corrected for weight), is valid for stable renal function. Performed By: #### C MP #### [facility] [address] [place] [address] Globulin mass conc (S) 2.7 g/dL Normal 2.3-3.5 [facility] Comment on above: Performed By: #### C MP #### [facility] [address] [place] [address] Glucose mass conc 94 mg/dL Normal 70-99 [facility] Comment on above: Result Comment: Effe ctive: 11/13/2018 New reference range for this analyte has been established. Performed By: #### C MP #### [facility] [address] [place] [address] Potassium molar conc 4.5 mmol/L Normal 3.4-4.9 [facility] Comment on above: Result Comment: Effe ctive: 11/13/2018 New reference range for this analyte has been established. Performed By: #### C MP #### [facility] [address] [place] [address] Protein mass conc 6.8 g/dL Normal 6.3-8.0 [facility] Comment on above: Result Comment: Effe ctive: 11/13/2018 New reference range for this analyte has been established. Performed By: #### C MP #### [facility] [address] [place] [address] Sodium molar conc 138 mmol/L Normal 135-144 [facility] Comment on above: Result Comment: Effe ctive: 11/13/2018 New reference range for this analyte has been established. Performed By: #### C MP #### [facility] [address] [place] [address] Urea nitrogen mass conc 13 mg/dL Normal 8-23 [facility] Comment on above: Performed By: #### C MP #### [facility] [address] [place] [address] Creatine Kinaseon 01-26-2019 CK enzyme act/vol 92 U/L Normal 0-190 [facility] Comment on above: Performed By: #### C PK #### [facility] [address] [place] [address] Culture, Urineon 01-26-2019 Culture, Urine ORDERED BY: CHASIDY BOLAÑOS SOURCE: Urine Clean Catch COLLECTED: 01/25/19 23:30 ANTIBIOTICS AT ROD.: RECEIVED : 01/25/19 23:46 Culture, Urine FINAL 01/27/19 07:51 No growth 24 hours Normal [facility] Comment on above: Performed By: #### C BCWD #### [facility] [address] [place] [address] Salicylateon 01-26-2019 Salicylate <0.3 Low 15.0-30.0 [facility] Comment on above: Result Comment: Anti -pyretic: 3.0-10.0 mg/dL Anti-inflammatory: 15.0-30.0 mg/dL Toxic: >30.0 mg/dL Performed By: #### S ALIC #### [facility] [address] [facility] [place] [address] TSH w/out Reflexon 9 Thyrotropin Qn 2.670 uIU/mL Normal 0.440-3.86 [facility] Comment on above: Result Comment: Effe ctive: 11/13/2018 New reference range for this analyte has been established. Performed By: #### T SH #### [facility] [address] [facility] [address] [place] [address] UR Drugs of Abuse Panelon Drug Screen Comment see below Normal [facility] Comment on above: Result Comment: This method is a screening test to detect only these drug classes as part of a medical workup. Confirmatory testing by another method should be ordered if clinically indicated. Performed By: #### U DRGS #### [facility] [address] [facility] [place] [address] UR Amphetamines Screen Negative Normal Negative < [facility] Comment on above: Performed By: #### U DRGS #### [facility] [address] [facility] [address] UR Barbiturates Screen Negative Normal Negative < [facility] Comment on above: Performed By: #### U DRGS #### [facility] [address] [facility] [address] UR Benzo Screen Negative Normal Negative < [facility] Comment on above: Performed By: #### U DRGS #### [facility] [address] [place] [address] UR Cannabinoids Screen Negative Normal Negative < [facility] Comment on above: Performed By: #### U DRGS #### [facility] [address] [place] [address] UR Cocaine Screen Negative Normal Negative < [facility] Comment on above: Performed By: #### U DRGS #### [facility] [address] [place] [address] UR Opiates Screen Negative Normal Negative < [facility] Comment on above: Performed By: #### U DRGS #### [facility] [address] [place] [address] UR PCP Screen Negative Normal Negative < [facility] Comment on above: Performed By: #### U DRGS #### [facility] [address] [place] [address] Urinalysis, reflex to cultur caroline 01-26-2019 Bilirubin Ql (U) Negative Normal Negative [facility] Comment on above: Performed By: #### U AR #### [facility] [address] [place] [address] Clarity Nom (U) Clear Normal Clear [facility] Comment on above: Performed By: #### U AR #### [facility] [address] [place] [address] Color Nom (U) Yellow Normal [facility] [facility] Comment on above: Performed By: #### U AR #### [facility] [address] [place] [address] Glucose Ql (U) Negative Normal Negative [facility] Comment on above: Performed By: #### U AR #### [facility] [address] [place] [address] Hemoglobin Ql (U) Negative Normal Negative [facility] Comment on above: Performed By: #### U AR #### [facility] [address] [place] [address] Ketones Ql (U) 15 mg/dL Abnormal Negative [facility] Comment on above: Performed By: #### U AR #### [facility] [address] [place] [address] Leukocyte esterase Test strip Ql (U) SMALL Abnormal Negative [facility] Comment on above: Performed By: #### U AR #### [facility] [address] [place] [address] Nitrite Ql (U) Negative Normal Negative [facility] Comment on above: Performed By: #### U AR #### [facility] [address] [place] [address] pH (U) 5.0 [pH] Normal 5.0-9.0 [facility] Comment on above: Performed By: #### U AR #### [facility] [address] [place] [address] Protein Ql (U) Negative Normal Negative [facility] Comment on above: Performed By: #### U AR #### [facility] [address] [place] [address] Specific gravity Relative Density (U) 1.022 Normal 1.005-1.03 [facility] Comment on above: Performed By: #### U AR #### [facility] [address] [place] [address] Urine Reflexed to Culture YES Normal [facility] Comment on above: Performed By: #### U AR #### [facility] [address] [place] [address] Urobilinogen Qn (U) 0.2 {Amadeo'U}/dL Normal < 2.0 [facility] Comment on above: Performed By: #### U AR #### [facility] [address] [place] [address] Urine Microscopicon 01-27-20 19 RBC #/vol (U) 0-2 Normal 0-2 [facility] Comment on above: Performed By: #### U AL #### [facility] [address] [place] [address] Bacteria LM.HPF #/area (Urine sed) Negative Normal [facility] Comment on above: Performed By: #### U AL #### [facility] [address] [place] [address] Urine Epithelial Cells Auto 3-5 Normal 0-5 [facility] Comment on above: Result Comment: Effe ctive 09/01/2018 Urinalysis microscopic performed using the automated methodology (AUWI analyzer). Performed By: #### U AL #### [facility] [address] [place] [address] Urine WBC Auto 3-5 Normal 0-5 [facility] Comment on above: Result Comment: Effe ctive 09/01/2018 Urinalysis microscopic performed using the automated methodology (AUWI analyzer). Performed By: #### U AL #### [facility] [address] [facility] [address] [facility] [address] Vital Signs Date Time Vital Sign Value Performing Clinician Facility 10-09-2023 13:47-0500 Blood Pressure Location Julio FORBES [facility] 10-09-2023 13:47-0500 Diastolic blood pressure 65 mm[Hg] Julio FORBES [facility] 10-09-2023 13:47-0500 Heart rate 74 /min Julio FORBES [facility] 10-09-2023 13:47-0500 Systolic blood pressure 132 mm[Hg] Julio FORBES [facility] 06-27-2023 13:47-0400 Diastolic blood pressure 64 mm[Hg] DISPLAYER-C Amelia Batista Work Phone: [facility] 06-27-2023 13:47-0400 Heart rate 56 /min DISPLAYER-C Amelia Batista Work Phone: [facility] 06-27-2023 13:47-0400 Respiratory rate 18 /min DISPLAYER-C Amelia Eisenstein Work Phone: [facility] 06-27-2023 13:47-0400 SaO2% (BldA) [Mass fraction] 97 % DISPLAYER-C Amelia Eisenstein Work Phone: [facility] 06-27-2023 13:47-0400 Systolic blood pressure 100 mm[Hg] DISPLAYER-C Amelia Eisenstein Work Phone: [facility] 06-27-2023 11:58-0400 Body height 187.96 cm DISPLAYER-C Amelia Eisenstein Work Phone: [facility] 06-27-2023 11:58-0400 Body temperature 97.6 [degF] DISPLAYER-C Amelia Eisenstein Work Phone: [facility] 06-27-2023 11:58-0400 Body weight 81.64 kg DISPLAYER-C Amelia Eisenstein Work Phone: [facility] 04-04-2023 14:10-0400 Diastolic blood pressure 61 mm[Hg] DISPLAYER-C Amelia Eisenstein Work Phone: [facility] 04-04-2023 14:10-0400 Heart rate 64 /min DISPLAYER-C Amelia Eisenstein Work Phone: [facility] 04-04-2023 14:10-0400 Respiratory rate 16 /min DISPLAYER-C Amelia Eisenstein Work Phone: [facility] 04-04-2023 14:10-0400 SaO2% (BldA) [Mass fraction] 93 % DISPLAYER-C Amelia Eisenstein Work Phone: [facility] 04-04-2023 14:10-0400 Systolic blood pressure 95 mm[Hg] DISPLAYER-C Amelia Eisenstein Work Phone: [facility] 04-04-2023 11:52-0400 Body height 187.96 cm DISPLAYER-C Amelia Batista Work Phone: [facility] 04-04-2023 11:52-0400 Body temperature 97.7 [degF] DISPLAYER-C Amelia Batista Work Phone: [facility] 04-04-2023 11:52-0400 Body weight 79.37 kg DISPLAYER-C Amelia Batista Work Phone: [facility] 04-03-2023 12:58-0400 Blood Pressure Location Julio FORBES [facility] 04-03-2023 12:58-0400 Diastolic blood pressure 57 mm[Hg] Julio FORBES [facility] 04-03-2023 12:58-0400 Heart rate 55 /min Julio FORBES [facility] 04-03-2023 12:58-0400 Systolic blood pressure 88 mm[Hg] Julio FORBES [facility] 11-06-2021 16:30-0500 Body height 187.96 cm Trino Crain Other [facility] Other 11-06-2021 16:30-0500 Body mass index (BMI) [Ratio] 23.24 kg/m2 Trino Crain Other [facility] Other 11-06-2021 16:30-0500 Body weight 82.1 kg Trino Crain Other [facility] Other Encounters Encounter Date Encounter Type Care Provider Facility Start: 11-07-2023 ambulatory Julio Sharpe ty:[id number] Start: 10-25-2023 End: 10-28-2023 ambulatory [facility] Start: 10-25-2023 ambulatory [facility] Start: 10-25-2023 End: 10-27-2023 Evaluation and management of inpatient TRINO Bobo [facility] Start: 10-24-2023 End: 10-25-2023 Emergency department patient visit [facility] Facility:[facility] Start: 10-18-2023 End: 10-18-2023 Emergency department patient visit [facility] Facility:[facility] Start: 10-12-2023 End: 10-12-2023 Emergency department patient visit [facility] Facility:[facility] Start: 10-09-2023 End: 10-10-2023 ambulatory Julio FORBES Facility:[facility] Start: 10-09-2023 End: 10-09-2023 Patient encounter procedure Julio FORBES [facility] Start: 10-02-2023 End: 10-03-[address] [facility] Facility:[facility] Start: 09-07-2023 End: 09-07-2023 Emergency department patient visit Mohan Hogan Facility:[facility] Start: 06-28-2023 End: 06-29-2023 ambulatory Mirian Zazueta Facility:[facility] Start: 06-27-2023 End: 06-27-2023 ambulatory Imad Asaad Facility:[facility] Start: 06-27-2023 End: 06-27-2023 Admission to same day surgery center DISPLAYER-C Amelia Qureshienstein Work Phone: [facility] Work Phone: Start: 06-27-2023 End: 06-27-2023 ambulatory DISPLAYER-C Amelia Eisenstein Work Phone: [facility] Work Phone: Start: 04-08-2023 End: 04-08-2023 ambulatory Imad Asaad Other [facility] Other Start: 04-08-2023 Telephone encounter Imad Asaad [facility] Start: 04-04-2023 End: 04-04-2023 ambulatory Amelia Eisenstein Facility:[facility] Start: 04-04-2023 End: 04-04-2023 Admission to same day surgery center DISPLAYER-C Amelia Qureshienstein Work Phone: [facility] Work Phone: Start: 04-04-2023 End: 04-04-2023 ambulatory DISPLAYER-C Amelia Batista Work Phone: [facility] Work Phone: Start: 04-03-2023 End: 04-04-2023 ambulatory Julio FORBES Facility: [facility] Start: 04-03-2023 End: 04-03-2023 Patient encounter procedure Julio FORBES [facility] Start: 03-26-2023 End: 03-27-2023 ambulatory Amelia Eisenstein Facility:[facility] Start: 11-16-2022 End: 11-16-2022 ambulatory Trino Crain Other [facility] Other Start: 11-16-2022 Office outpatient visit 15 minutes Trino Crain [facility] Start: 08-08-2022 End: 08-08-2022 ambulatory Trino Crain Other [facility] Other Start: 08-08-2022 Office outpatient visit 15 minutes Trino Crain [facility] Start: 04-25-2022 End: 04-25-2022 Lab Drop off Julio FORBES [facility] Start: 04-25-2022 End: 04-25-2022 Patient encounter procedure Julio R ANDREI [facility] Start: 11-07-2021 End: 11-07-2021 ambulatory Nela Alegria Other [facility] Other Start: 11-07-2021 Telephone encounter Nela Alegria [facility] Start: 11-06-2021 End: 11-06-2021 ambulatory Nela Alegria Other [facility] Other Start: 11-06-2021 Office outpatient ne w 30 minutes Trino Crain [facility] Start: 11-06-2021 Telephone encounter Nela Alegria [facility] Start: 04-07-2020 End: 04-07-2020 Patient encounter procedure JULIO FORBES Facility:[facility] Start: 04-04-2020 Patient encounter procedure JULIO FORBES Facility:[facility] Start: 03-10-2020 End: 03-10-2020 Patient encounter procedure JULIO FORBES Facility:[facility] Start: 02-03-2020 End: 02-03-2020 Patient encounter procedure JULIO FORBES Facility:[facility] Start: 01-26-2019 End: 01-26-2019 Emergency department patient visit BIRGIT BAIRES [facility] Procedures Date Procedure Procedure Detail Performing Clinician Start: 06-27-2023 Esophagogastroduodenoscopy DISPLAYER-C Amelia Batista Work Phone: Start: 04-04-2023 Esophagogastroduodenoscopy DISPLAYER-C Amelia Batista Work Phone: Start: 01-26-2019 Urnls [...] Date Care Activity Detail Author Start: 06-27-2023 [facility] Start: 04-04-2023 [facility] Patient Education [facility] Work Phone: Immunizations Immunization Date Immunization Notes Care Provider [facility] 07-04-2023 influenza virus vaccine, unspecified formulation Julio FORBES [facility] 03-08-2023 pneumococcal 20-vinita nt conjugate vaccine Julio FORBES [facility] 03-08-2023 SARS-CoV-2 (COVID-19 ) [id number] Julio FORBES [facility] 07-06-2022 influenza virus vaccine, unspecified formulation Julio FORBES [facility] 07-06-2022 SARS-CoV-2 (COVID-19 ) [id number].[id number] Julio FORBES [facility] 01-05-2022 SARS-CoV-2 mRNA (ryymjrneroj-jrzm-zogv ose) vaccine Julio FORBES [facility] 07-13-2021 zoster vaccine recombinant Julio FORBES [facility] 07-10-2021 influenza virus vaccine, unspecified formulation Julio FORBES [facility] 07-03-2021 SARS-CoV-2 (COVID-19 ) mRNA BNT-162b2 vax Julio FORBES [facility] 06-08-2021 COVID-19 mRNA, Comirnaty (Pfizer) DISPLAYER-C Amelia Eisenstein Work Phone: [facility] 11-24-2020 COVID-19 mRNA, Comirnaty (Pfizer) DISPLAYER-C Amelia Eisenstein Work Phone: [facility] Comment on above: Result Comment: 2022: [id number] 11-03-2020 COVID-19 mRNA, Comirnaty (Pfizer) DISPLAYER-C Amelia Eisenstein Work Phone: [facility] Comment on above: Result Comment: 2022: [id number] 10-22-2018 zoster vaccine recombinant Julio FORBES [facility] 05-20-2018 zoster vaccine recombinant Julio FORBES [facility] 07-31-2015 tetanus and diphther ia toxoids, adsorbed, preservative free, for adult use (2 Lf of tetanus toxoid and 2 Lf of diphtheria toxoid) Juliorubi FORBES [facility] Payers Date Payer Category Payer Medicare [id number] 2019 Medicare [id number] 1959 Medicare [id number] 1959 Unknown [id number] 1945 Unknown [id number] 2.16.8 40.1.303002.3.579.2.182 1944 Unknown [id number] 2.16.84 0.1.013005.3.579.2.593 1944 Unknown [id number] 2.16.84 0.1.622145.3.579.2.593 1944 Unknown [id number] 2.16.84 0.1.640169.3.579.2.593 1944 Unknown [id number] 2.16.84 0.1.214987.3.579.2.593 1944 Unknown [id number] 2.16.8 40.1.434105.3.579.2.727 1944 Unknown [id number] 2.16.8 40.1.192327.3.579.2.727 1944 Unknown [id number] 2.16.84 0.1.312418.3.579.2.1286 1944 Unknown [id number] 2.16.84 0.1.194033.3.579.2.1286 1944 Unknown [id number] 2.16.84 0.1.405258.3.579.2.1286 1944 Unknown [id number] 2.16.84 0.1.642291.3.579.2.1286 1944 Unknown [id number] 2.16.8 40.1.949738.3.579.2.718 1944 Unknown [id number] 2.16.8 40.1.775283.3.579.2.718 1944 Unknown [id number] 2.16.8 40.1.729222.3.579.2.718 1944 Unknown [id number] 2.16.8 40.1.096219.3.579.2.718 1944 Unknown [id number] 2.16.8 40.1.248703.3.579.2.718 1944 Unknown [id number] 2.16.8 40.1.707215.3.579.2.718 1944 Unknown [id number] 2.16.8 40.1.128666.3.579.2.718 Self-pay Self Pay [id number] Social History Date Type Detail Facility Sex Assigned At [facility] Other Start: 03-22-2021 End: 10-09-2023 Tobacco smoking status Ex-smoker (finding) [facility] Tobacco smoking status Never [facility] Start: 1945 Sex Assigned At Male F [facility] Goals Date Patient Goal Desired Activity /State Functional Status Date Assessment Result Facility 10-09-2023 Functional Status N/A [facility] 04-03-2023 Functional Status N/A [facility] Clinical Notes 11-06-2021 to 10-27-2023 Note Date & Type Note Facility 10-27-2023 Note 2nd site 15 minutes after first Blood Culture is drawn Culture in progress Gram Negative Rods Identification and susceptibility to follow. Results called to Charmaine Boone at ED by SANIA and results read back for confirmation on 10/27/2023 08:48:44 [facility] Comment on above: Performed By: #### [id number] ####[facility] (DEFAULT)[address] [place] [address] 10-18-2023 Note Education Materials Urology Ureteral Stent Implantation, Care After This sheet gives you information about how to care for yourself after your procedure. Your health care provider may also give you more specific instructions. If you have problems or questions, contact your health care provider. What can I expect after the procedure? After the procedure, it is common to have: ? Nausea. ? Mild pain when you urinate. You may feel this pain in your lower back or lower abdomen. The pain should stop within a few minutes after you urinate. This may last for up to 1 week. ? A small amount of blood in your urine for several days. Follow these instructions at home: Medicines ? Take leaw-kkg-txsmcwu and prescription medicines only as told by your health care provider. ? If you were prescribed an antibiotic medicine, take it as told by your health care provider. Do not stop taking the antibiotic even if you start to feel better. ? Do not drive for 24 hours if you were given a sedative during your procedure. ? Ask your health care provider if the medicine prescribed to you requires you to avoid driving or using heavy machinery. Activity ? Rest as told by your health care provider. ? Avoid sitting for a long time without moving. Get up to take short walks every 1?2 hours. This is important to improve blood flow and breathing. Ask for help if you feel weak or unsteady. ? Return to your normal activities as told by your health care provider. Ask your health care provider what activities are safe for you. General instructions ? Watch for any blood in your urine. Call your health care provider if the amount of blood in your urine increases. ? If you have a catheter: ? Follow instructions from your health care provider about taking care of your catheter and collection bag. ? Do not take baths, swim, or use a hot tub until your health care provider approves. Ask your health care provider if you may take showers. You may only be allowed to take sponge baths. ? Drink enough fluid to keep your urine pale yellow. ? Do not use any products that contain nicotine or tobacco, such as cigarettes, e-cigarettes, and chewing tobacco. These can delay healing after surgery. If you need help quitting, ask your health care provider. ? Keep all follow-up visits as told by your health care provider. This is important. Contact a health care provider if: ? You have pain that gets worse or does not get better with medicine, especially pain when you urinate. ? You have difficulty urinating. ? You feel nauseous or you vomit repeatedly during a period of more than 2 days after the procedure. Get help right away if: ? Your urine is dark red or has blood clots in it. ? You are leaking urine (have incontinence). ? The end of the stent comes out of your urethra. ? You cannot urinate. ? You have sudden, sharp, or severe pain in your abdomen or lower back. ? You have a fever. ? You have swelling or pain in your legs. ? You have difficulty breathing. Summary ? After the procedure, it is common to have mild pain when you urinate that goes away within a few minutes after you urinate. This may last for up to 1 week. ? Watch for any blood in your urine. Call your health care provider if the amount of blood in your urine increases. ? Take rcnw-xrf-ftvnzyy and prescription medicines only as told by your health care provider. ? Drink enough fluid to keep your urine pale yellow. This information is not intended to replace advice given to you by your health care provider. Make sure you discuss any questions you have with your health care provider. Document Revised: 08/20/2022 Document Reviewed: 07/30/2022 [employer] Patient Education ? 2021 [employer]. [facility] 10-12-2023 Note Education Materials Urology Kidney Stones [...] these instructions at home: Medicines ? Take bnta-zhi-scmrnme and prescription medicines only as told by [...] provider. Document Revised: 05/28/2022 Document Reviewed: 05/28/2022 [employer] Patient Education ? 2022 [employer]. [facility] 10-09-2023 Hospital Discharg e instructions Patient Education 10/09/2023 14:27:30 Lithotripsy, [...] Follow these instructions at home: Medicines Take keyf-gif-iemeehl and prescription medicines only as told by [...] provider. Document Revised: 08/20/2022 Document Reviewed: 05/28/2022 [employer] Patient Education 2022 [employer]. 10/09/2023 14:26:16 Lithotripsy Lithotripsy Lithotripsy is a [...] including vitamins, herbs, eye drops, creams, and mapr-ynq-tvyucgq medicines. Any problems you or family members [...] provider tells you to take them. Taking ufit-zwm-rtnymdj medicines, vitamins, herbs, and supplements. Tests You [...] provider. Document Revised: 08/20/2022 Document Reviewed: 05/28/2022 [employer] Patient Education 2022 [employer]. Follow Up Care 04/03/2023 13:24:26 With:ANDREI WEEKS, Julio Woods, URL Address: [facility] [address] , [place] [address]- When: Unknown [facility] 09-09-2023 Note [id number] 09-07-2023 Note Education Materials Dentistry Dental [...] and teeth. This keeps them healthy. ? [place] your teeth 2 times a day. Use [...] prevented? ? To prevent dental caries: ? [place] your teeth every morning and night. Use [...] Reviewed: 09/09/2020 Elsevier Patient Education ? 2022 [employer]. [facility] 06-27-2023 Procedure note [facility] 04-04-2023 Procedure note [facility] 04-03-2023 Hospital Discharg e instructions Patient Education [...] include: ?8 oz (237 mL) of milk, qmslzhu-bxteubeyvpkk-lorzy milk, and calcium-fortifiedfruit juice. Calcium-fortified means that [...] ?Spinach (cooked), rhubarb, beets, sweet potatoes, and Fijian chard. ?Peanuts. ?Potato chips, jordanian fries, and baked potatoes with skin on. ?Nuts and nut products. ?Chocolate. If you regularly take a diuretic medicine, make sure to eat at least 1 or 2 servings of fruits or vegetables that are high in potassium each day. These include: ?Avocado. ?Banana. ?[place], prune, carrot, or tomato juice. ?Baked potato. [...] magnesium, fish oil, or vitamin B6. Take pgbt-jbz-hbmlfqd and prescription medicines only as told by [...] Casseroles. Pizza. Lasagna. Frozen meals. Potato chips. Malagasy fries. The items listed above may not [...] provider. Document Revised: 06/04/2022 Document Reviewed: 06/04/2022 [employer] Patient Education 2022 [employer]. Follow Up Care 03/28/2022 11:42:39 With:ANDREI WEEKS Julio oWods, URL Address: [facility] [address], [place] [address]- When: Unknown [facility] 11-16-2022 Evaluation note Encounter Date Diagnosis [...] and tingle for hours after this injection. [facility] Other 11-02-2022 Evaluation note* Encounter Date Diagnosis [...] tolerated the injection well without adverse reaction. [facility] Other 02-01-2022 Evaluation note* Encounter Date Diagnosis Assessment Notes Treatment Notes Treatment Clinical Notes Nov, Dysphagia (ICD-10 - R13.10) [facility] Other 01-31-2022 Evaluation note* Encounter Date Diagnosis [...] as documented in the electronic medical record. [facility] Other Evaluation + Plan note Future Appointments Appointment Date:04/03/2023 01:00:00 PM Scheduled Provider:Julio FORBES MD Location:[facility] Appointment Type:URO Office Visit [facility] Evaluation + Plan note Future Appointments Appointment Date:04/03/2023 01:00:00 PM Scheduled Provider:Julio FORBES MD Location:[facility] Appointment Type:URO Office Visit Diagnostic Tests Pending * [facility]ments Appointment Date:10/09/2023 01:45:00 PM Scheduled Provider:Julio FORBES MD Location:[facility] Appointment Type:URO Office Visit [facility] Evaluvhepv noteNo InformationNorth [employer]man [employer] Other evaluation noteNo assessment information available [facility] Work Phone: History and physical note Author Eliceo Dobson [facility] April 04, 2023 1:22pm Note Date/Time April 04, 2023 1:22 pm [facility] [address] [place] [address] Gastroenterology H&P Signed Patient: Daniele Perry MR#: [id number] : 1945 Acct:[id number] Age/Sex: 78 / M Adm Date: 3 Loc: Room: Type: [facility] Attending Dr: Eliceo Dobson MD Copies [...] Dobson M.D. Documented By: Eliceo Dobson MD 04/04/231320 Signed By: <Electronically signed by Eliceo Dobson MD> 04/04/231321 [facility] Work Phone: History and physical note Author Eliceo Dobson [facility] June 27, 2023 1:00pm Note Date/Time June 27, 2023 1:00pm [facility] [address] [place] [address] Gastroenterology H&P Signed Patient: Daniele Perry MR#: [id number] : 1945 Acct:[id number] Age/Sex: 78 / M Adm Date: 3 Loc: Room: Type: [facility] Attending Dr: Eliceo Dobson MD Copies to: MD Amelia Powers NP-Mian~ Date of Service: 06/27/2023 HISTORY & PHYSICAL: [...] M.D. Documented By: Eliceo Dobson MD 06/27/23 [id number] Signed By: <Electronically signed by Eliceo Dobson MD> 06/27/23 1300 [facility] Work Phone: History general Narrative - Reported* Type Description Date Medical History constipation Medical History Vitamin D deficiency Medical History depression Medical History erectile dysfunction Medical History testosterone deficiency Surgical History arthroscopic knee surgery [facility] Other Hospital course Narrative No data available for this section [facility] Hospital Discharge instructions No data available for this section [facility] Hospital Discharge instructions Additional Instructions DISCHARGE [...] problems. -Follow up with PCP. -Office number [phone]. [facility] Work Phone: Hospital Discharge instructions Additional Instructions [...] problems. -Follow up with PCP. -Office number [phone]. [facility] Work Phone: Progress note No data available for this section [facility] Summary Purpose Family History No Family History [...] section and content) DATE CREATED AUTHOR 01/27/2019 [facility] DATE CREATED AUTHOR AUTHOR'S ORGANIZ ATION 04/23/2020 [facility] DATE CREATED AUTHOR AUTHOR'S ORGANIZ ATION 07/09/2023 [facility] DATE CREATED AUTHOR AUTHOR'S ORGANIZ ATION 10/11/[address] [facility] DATE CREATED AUTHOR AUTHOR'S ORGANIZ ATION 10/27/2023 [facility] DATE CREATED AUTHOR AUTHOR'S ORGANIZ ATION 10/27/2023 [facility] DATE CREATED AUTHOR AUTHOR'S ORGANIZ ATION 10/29/2023 [facility] REASON FOR VISIT (unrecogniz ed section and content) Left Wrist PainClinicalCOVID ORDERRecheck Left WristRecheck Left WristPOSTING SHEETEGD SCRIPT Care Team (unrecognized sect ion and content) Team Status: Active Member Role Status Dates LUC Rios Primary Care Provider Activ patrice Team Status: Inactive Member Role Status Dates LUC Rios Primary Care Provider Activ e Eliceo Dobson MD Attending Provider Active FOR RECORDS [...] BE BASED ON THE PRIMARY CLINICAL RECORDS. [facility] [facility] provides no warranty or guarantee of the accuracy or completeness of information in this document.
== END 2023-10-29 07:04 | disposition home or self-care (01) ==
LOC: PST 07:03
PROVIDERS: Visit Provider Urology
DX: Z01.818 Encounter for other preprocedural examination (principal); N20.0 Calculus of kidney; G20.A1 Parkinson's disease without dyskinesia, without mention of fluctuations; N40.0 Benign prostatic hyperplasia without lower urinary tract symptoms; E29.1 Testicular hypofunction; Z79.01 Long term (current) use of anticoagulants

== ENCOUNTER 2023-11-11 11:51 | Outpatient (OUT) | payer MEDICARE, SELFPAY ==
--- OUTSIDE RECORDS SUMMARY | 2023-11-11 11:57 | XMS_ITS | CCD ---
Author Name Unknown Address [facility] [address] [place] [address] [facility] Team Providers Care Performance Tester Name Role Phone DEQUAN BIRGIT LAINA Primary Care UnavailCHASIDY Givens Attending UnavailJULIO Hernandez Admitting Unavailable FORBES, JULIO Attending Unavailable MISC, Primary Care Unavailable FOREBS, JULIO Consulting Unavailable JULIAN CISNEROS Consulting Unavailable FORBES, JULIO Admitting Unavailable FORBES, JULIO Attending Unavailable ANDREI, JULIO Consulting Unavailable NELA DOVE V Consulting Unavailable FRANCISCA MAXWELL Consulting Unavailable NIURKA JEAN Consulting Unavailable FORBES, JULIO Admitting Unavailable FORBES, JULIO Attending Unavailable FORBES, JULIO Consulting Unavailable ELIZABETH PERALES Consulting Unavailable TED, NIURKA Consulting Unavailable TRINI ANAND Consulting Unavailable FORBES, JULIO Admitting Unavailable FORBES, JULIO Attending Unavailable Trino Crain Unavailable Nela Alegria Unavailable AMELIA BATISTA Primary Care Physician [phone] LUC Batista Primary Care Provider MD Bronson Imbrigido Attending Provider [phone] Asaad, Imad Unavailable Amelia Batista Primary Care Unavailable Asaad, Imad Attending Unavailable Asaad, Imad Admitting Unavailable Asaad, Imad Attending Unavailable Asaad, Imad Admitting Unavailable Amelia Batista Primary Care Unavailable TRINO JUAREZ Attending Unavailable SEVERINO MISHRA Admitting Unavailable MARGARITO QUINTANILLA Consulting UnavailLINO Davis Referring Unavailable AMELIA BATISTA Primary Care Unavailable SOILA MEJIA Referring Unavailable LESTER AMELIA Primary Care Unavailable Eisenstein, [facility] Primary Care Unavailable FrankyerJalen Admitting Unavailable Tiller, Jalen Pappas Attending Unavailable Eisenstein, [facility] Primary Care Unavailable Forbes, Julio R Admitting Unavailable Forbes, Julio R Attending Unavailable Eisenstein, [facility] Primary Care Unavailable Forbes, Julio R Admitting Unavailable Forbes, Julio R Attending Unavailable Miller Head Assistant Wet Process, Mirian Corey Admitting Unavailable Miller Head Assistant Wet Process, Mirian Corey Attending Unavailable Eisenstein, [facility] Primary Care Unavailable Eisenstein, [facility] Primary Care Unavailable Fernando, Jalen Corey Admitting Unavailab le Fernando, Jalen Corey Attending Unavailab le Forbes, Julio Woods Consulting Unavailable Eisenstein, [facility] Primary Care Unavailable Tiller, Jalen Pappas Attending Unavailable Tiller, Jalen Pappas Admitting Unavailable Omley, Mohan H Attending Unavailable Eisenstein, [facility] Primary Care Unavailable Omley, Mohan H Admitting Unavailable FORBES, Julio R Attending Unavailable FORBES, Julio R Referring Unavailable FORBES, Julio R Attending Unavailable FORBES, Julio R Attending Unavailable FORBES, Julio R Attending Unavailable FORBES, Julio R Attending Unavailable FORBES, Julio R Attending Unavailable FOREBS, Julio R Attending Unavailable Allergies Allergy Classification Reported Allergen(s) Allergy Type Date of Onset Reaction(s) Facility (6 sources) Shellfish; Translations: [shellfish] Drug allergy (disorder) Unknown (qualifier value) [facility] Repository (3 sources) Shellfish; Translations: [shellfish] Drug allergy Unknown (qualifier value) [facility] (4 sources) clams; Translations: [CLAMS] Allergy to substance 4 [facility] (2 sources) oysters Allergy to substance 0 [facility] (2 sources) OYSTER SHELL; Translations: [...] Daily, # 90 tab(s), Refills(s) 3, Pharmacy: [facility] 188, cm, 03/28/22 11:06:00 EDT, Height/Length Dosing, 85, kg, 03/28/22 11:06:00 EDT, Weight Dosing Start Date: 03/28/22 Status: Ordered amoxicillin 500 mg oral capsule (7 sources) Penicillin-class Antibacterial take 4 capsules by mouth every hour Amoxicillin 500 MG take 4 capsules by mouth 1 hour prior to dental appointment Oral for 6 Active Aspirin (7 sources) Platelet Aggregation Inhibitor, Nonsteroidal Anti-inflammatory Drug Start: 02-02-2020 aspirin 81 mg, Refills(s) 0 Start Date: 02/02/20 Status: Ordered Start: 01-08-2018 take 1 tablet by marco antonio th once daily Aspirin (Aspir-81) 81 mg Tablet,Delayed Release (Dr/Ec) Active 81 MG PO Daily January 08, 2018 12:00am Lipitor (7 sources) HMG-CoA Reductase Inhibitor Start: 02-02-2020 Lipitor Oral, Daily, Refills(s) 0 Start Date: 02/02/20 Status: Ordered Start: 01-08-2018 take 20 mg by mouth once daily Atorvastatin Active 20 MG PO Daily January 08, 2018 12:00am carbidopa 10 mg / levodopa 100 mg oral tablet (5 sources) Aromatic Amino Acid Decarboxylation Inhibitor, Aromatic [...] 08, 2018 12:00am December 12, 2021 2:46pm ciprofloxacin 500 mg oral tablet (1 source) Quinolone Antimicrobial Start: 11-01-2023 ciprofloxacin 500 mg Tab Refills(s) 0 Start Date: 11/01/23 Status: Ordered dexamethasone 1 mg/ml / tobramycin 3 mg/ml ophthalmic suspension (7 sources) Aminoglycoside Antibacterial, Corticosteroid take 1 drop(s) into the eye(s) four times daily Tobramycin-Dexameth asone 0.3-0.1 % instill 1 drop into left [...] 30 cap(s), Refills(s) 11, [facility]: [id number], 188, cm, 04/03/23 13:02:00 EDT, Height/Length Dosing, 85, kg, 04/03/23 13:02:00 EDT, Weight Dosing Start Date: 04/17/23 Status: Ordered eszopiclone 3 mg oral tablet (7 sources) Start: 01-08-2018 take 3 mg by mouth once daily at bedtime Lunesta 3 mg, Oral, Once a day (at bedtime), Refills(s) 0 Start Date: 02/02/20 Status: Ordered Zetia (9 sources) Dietary Cholesterol Absorption Inhibitor Start: 02-02-2020 take 20 mg by mouth once daily Zetia 20 mg, Oral, Daily, Refills(s) 0 Start Date: 02/02/20 Status: Ordered Start: 01-08-2018 End: 01-08-2018 take 1 tablet by mouth once daily Ezetimibe (Zetia) 10 mg Tablet Active 10 MG PO Daily January 08, 2018 12:00am Fish Oils (5 sources) Start: 02-02-2020 Fish Oil Oral, Refill(s) 0 Start Date: 02/02/20 Status: Ordered Neurontin (14 sources) Anti-epileptic Agent Start: 02-02-2020 Neurontin Oral, Daily Start Date: 02/02/20 Status: Ordered Start: 01-08-2018 End: 12-12-2021 take 300 mg by mouth twice daily Gabapentin Discontinued 300 MG PO Twice daily January 08, 2018 12:00am December 12, 2021 2:37pm take 1 capsule by cox monett three times daily Gabapentin 300 MG take 1 capsule by mouth three times a day Oral for 30 Active Bngj-Xnsaq-Ds4-Eal-Ftw-Wutt- St (Glucosamine Chondroitin Plus) 137-212-39-54 mg Capsule (2 sources) Start: 01-08-2018 take 1 capsule by mouth once daily Clis-Tzkez-Dq4-Cgc-Nun-Kqlz-St (Glucosamine Chondroitin Plus) 670-744-08-54 mg Capsule Active 1500 MG PO Daily January 08, 2018 12:00am glucosamine 500 mg oral tabl et (5 sources) Start: 02-02-2020 glucosamine 500 mg, Oral, [...] 2 spray(s) nasal route twice daily Ipratropium Lanagan 0.03 % instill 2 sprays into each [...] take medication for 12 weeks. Apr, Active oxyCODONE hydrochloride 5 mg oral tablet (1 source) Opioid Agonist Start: 024 oxyCODONE 5 mg Tab Refills(s) 0 Start Date: 11/01/23 Status: Ordered phenazopyridine hydrochloride 200 mg oral tablet (2 sources) Start: 022 take 1 tablet by mouth twice daily Pyridium 200 mg Tab 200 mg = 1 tab(s), Oral, BID, # 6 tab(s), Refills(s) 0, Pharmacy: [facility] #[id number], 188, cm, 03/28/22 11:06:00 EDT, Height/Length Dosing, 85, kg, 03/28/22 11:06:00 EDT, Weight Dosing Start Date: 04/24/22 Status: Ordered Primidone (5 sources) Anti-epileptic Agent Start: 020 primidone Oral, TID, Refills(s) 0 Start Date: 02/02/20 Status: Ordered Propranolol (7 sources) beta-Adrenergic Eliane Start: 020 propranolol Start Date: 02/02/20 Status: Ordered Start: 01-08-2018 take 60 mg by mouth once daily Propranolol Active 60 MG PO Daily January 08, 2018 12:00am Requip (5 sources) Nonergot Dopamine Agonist Start: 02-02-2020 Requip Oral, TID, Refills(s) 0 Start Date: 02/02/20 Status: Ordered sildenafil 100 mg oral tablet (15 sources) Phosphodiesterase 5 Inhibitor Start: 06-27-2023 take 100 mg by mouth once daily Sildenafil Active 100 MG PO Daily June 27, 2023 12:00am Start: 02-02-2020 Viagra Oral, D aily, Refills(s) 0 Start Date: 02/02/20 Status: Ordered Start: 11-25-2019 End: 12-12-2021 Sildenafil (Pulm.Hypertensio n) Discontinued 1 TAB PO As Directed November 25, 2019 1:00am December 12, 2021 2:38pm tamsulosin hydrochloride 0.4 mg oral capsule (4 sources) alpha-Adrenergic Eliane Start: 10-09-2023 take 1 [...] January 08, 2018 12:00am Vit A,C And M-Hrufkd-Mlpwrntq (Vision Formula (With Lutein)) 1,000 unit-200 mg-60 unit-2 mg Tablet (2 sources) Start: 01-08-2018 take 1 tablet by mouth once daily Vit A,C And P-Rplbes-Awxdwncc (Vision Formula (With Lutein)) 1,000 unit-200 mg-60 unit-2 mg Tablet Active 1 TAB PO Daily January 08, 2018 12:00am Completed/Discontinued Medications Medication Drug Class(es) Dates Sig (Normalized) Sig (Original) Multivitamin-Minera ls-Lutein (Multivitamin 50 Plus) Tablet (2 sources) Start: 01-08-2018 End: 12-12-2021 Multivitamin-Mine rals-Lutein (Multivitamin 50 Plus) Tablet Discontinued 1 TAB PO Daily January 08, 2018 12:00am December 12, 2021 2:38pm Ada 2-Hse-Avs-Fish Oil (Fish Oil) 1,000 mg (120 mg-180 mg) Capsule (2 sources) Start: 01-08-2018 End: 12-12-2021 take 1 tablet by mouth once daily Ada 3-Wkj-Ihr-Fish Oil (Fish Oil) 1,000 mg (120 mg-180 [...] suspension (11 sources) Corticosteroid Start: 08-08-2022 Kenalog-40 10 Nov, 2022 40 mg Start: 11-06-2021 Kenalog -40 mg Oct, 40 mg Problems Problem Classification Problem Date Documented Date Episodic/Chronic Abdominal pain (7 sources) Unspecified abdominal pain; Translations: [Abdominal pain] Onset: 02-12-2003-28-2022 Episodic Calculus of urinary tract (16 sources) Calculus of ureter; Translations: [Calculus of kidney] Onset: 02-03-2002-02-2020 Episodic Complications of surgical procedures or medical care (1 source) Unspecified complication of procedure, initial encounter; Translations: [Unspecified complication of procedure, initial encounter] Onset: 10-25-19 Episodic Disorders of lipid metabolism (6 sources) Hyperlipidemia, unspecified; Translations: [Hyperlipidemia] Onset: 04-14-2002-02-2020 Chronic Disorders of lipid metabolism (1 source) Pure hypercholesterolemia, unspecified; Translations: [PURE HYPERCHOLESTEROLEMIA UNSPEC] Onset: 04-14-20 Diverticulosis and diverticulitis (6 sources) Diverticulosis of intestine, part unspecified, without perforation or abscess without bleeding; Translations: [Diverticular disease] Onset: 03-16-2002-02-2020 Chronic Esophageal disorders (9 sources) Stricture of esophagus; Translations: [Esophageal obstruction] 12-13-2021 Chronic Esophageal disorders (7 sources) Esophagitis; Translations: [Esophagitis, unspecified] Episodic Genitourinary symptoms and ill-defined conditions (14 sources) Nocturia; Translations: [Hematuria, unspecified] Onset: 04-14-20 Episodic Hyperplasia of prostate (11 sources) Benign prostatic hyperplasia with lower urinary tract symptoms; Translations: [Benign prostatic hyperplasia without lower urinary tract symptoms] Onset: 03-16-2002-02-2020 Chronic Mood disorders (1 source) Major depressive disorder, single episode, mild; Translations: [Major depressive disorder, single episode, mild] Onset: 01-27-20 Chronic Osteoarthritis (10 sources) Arthritis of left wrist; Translations: [Primary osteoarthritis, left wrist] Onset: 11-06-19 Resolved : 11-06-19 Chronic Other aftercare (1 source) USP (current) use of anticoagulants; Translations: [ASSISTED CURRNT USE ANTICOAGULANTS] Onset: 04-14-20 Episodic Other aftercare (2 sources) Other ncqa specialist (current) drug therapy; Translations: [OTH ASSISTED CURRENT DRUG THERAPY] Onset: 02-12-20 Episodic Other aftercare (1 source) pharm tech (current) use of aspirin; Translations: [BEEHIVE KILN CHARCOAL BURNER CURRENT USE OF ASPIRIN] Onset: 03-16-20 Episodic [...] HYPOFUNCTION] Onset: 04-14-20 Chronic Other endocrine disorders (5 sources) Male hypogonadism 02-02-2020 Chronic Other endocrine disorders (3 sources) Testicular hypofunction; Translations: [Testicular hypofunction] Onset: 04-03-20 Chronic Other gastrointestinal disorders (15 sources) Dysphagia; Translations: [Dysphagia, unspecified] 09-01-2018 Episodic Other gastrointestinal disorders (2 sources) Dysphagia, unspecified; Translations: [Dysphagia] Onset: 11-07-19 Resolved : 11-07-19 Episodic Other injuries and conditions due to external causes (1 source) Foreign body in bladder; Translations: [Foreign body in bladder, initial encounter] Onset: 11-01-19 24 Episodic Other male genital disorders (4 sources) Male erectile dysfunction, unspecified; Translations: [Erectile dysfunction] Onset: 04-14-20 Chronic Other male genital disorders (5 sources) 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 Other non-traumatic joint disorders (3 sources) Pain in left wrist Onset: 11-06-19 Resolved : 11-06-19 Episodic Other screening for suspected conditions (not mental disorders or infectious disease) (2 sources) Patient encounter status; Translations: [Encounter for screening for malignant neoplasm of colon] 01-08-2018 Episodic Parkinson`s disease (6 sources) Parkinson's disease; Translations: [Parkinson's disease] Onset: 04-14-20 20 02-02-2020 Chronic Residual codes; unclassified (1 source) Pain, unspecified; Translations: [Pain, unspecified] Onset: 10-25-19 Episodic Screening and history of mental health and substance abuse codes (1 source) Personal history of nicotine dependence; Translations: [PERSONAL HISTORY OF NICOTINE DEPEND] Onset: 04-14-20 Episodic Suicide and intentional self-inflicted injury (1 source) Suicidal ideations; Translations: [Suicidal ideations] Onset: 01-27-20 Episodic Unclassified (1 source) EMS///Daniele Perry 43 Post ureter stent serona or bleed Dr Quintanilla urology accepted transfer please call urology resident. transfer from [facility] ED, flank pain s/p ureteral stent, 78 yo M Report from [facility] Alert and oriented x4 Lithotripsy with stent last week Increased pain CT shows Onset: 10-25-19 Results Test Name Value Interpretation Reference Range Facility Coding Summaryon 11-05-2023 Coding Summary HTMLBase 64 YopmgpjwSCf2gJv+PGhlYWQ+ BW3UVQBmH99rxREhnB1wP3HI TElOSywgQVBQTElOSyIgbmFt HO2riYYdHNGo IC8+UF9sTCHtSljosYYfu6N1 pFR6J58mkw8iTVuizDK7PILr FcZjugpur3bbtOs7QWrhMzqd OyBt KFNrhL41YMR2kJ21Tc71bRPn bAIwp1rspKw3HhQeRFWoDCR1 rEyeJBeuu7PbUXHdH86ubDCc c2U6 RELhjDyicTQzYrMdiFL0pL2f MYuameznw3bxulfjTqu8wk72 xWKre0I3zHL1Y4OrppN0QVDt bGQg XtvemFVSiS5flrdna6gajewh MfTuVQAtMRp5RCz3QZOogDao MsMgVD58DJJ5GLMvmfXsW2Cn LWFs mRxeAmK2n3T6Yn9OF2AIXyhv D8WSHAZRRPuamZE+YM44ju24 Y0KoGvqoNri3FTQvKLI1oVO3 aD0n FJZuIGctu0F4eYP6F6LfgyVv gm0wn1hlHSAfQItvE07snKUr m8S6QAJujZI4ASLpyTopPmGh aG93 Oyc+DCWhuJivq0BeFpkob6ac s9rtsKx2GpywYWEyohFiaLip XMU3e6MyNy5aJELihIU2yKS1 aD0i OaNuGbG2VFfiD439RePjvRCt UacpK31jC7QljYJ+PHRyPjx0 THYecSxkOX7wE9UqOPSqygvd bGVm gAbtCR3gVETzlffwHCVubD6u TWTtD9b0GyViKaT2GMtnL9Ow PBLzscfmCu77zC5rSwJxBwW7 MGlu X9UqzyB0LPVtfPBoOHdqEJY6 V83wr3E9MZFaRMUzDBW5tVR3 wH5rkHrpsqcvdJHerGjzsgWf dGlj ULkwWZhlY683RVHppWyrEdUp ZGluZyBEYXRlOiAgMDEvMzAv MjAyNDwvdGQ+VBGwKIB8pSiw PSAn dKLwOMelGh3veBuoeSlzEU9u CWFgtyshNACvwO6zEEFveHPw dVyuLR8lNSOlnzwil927NnWl MHB0 QDZklNGgJ1NojK9cLiRfZPVy UNGoG5WozALlXAdyB217QWhl KlE5GGTrsaBuA4XeHDHwaEvq OiB0 o0D4Zn7Un6SuuezuO2GleEWe LuGpXrhfEWm0D2BgMpkklFQ+ EX89RQNmMR88VRy8MAN3fQsr PSdi JRYcO2AkyI8nGuPxZPTeXWCo Oyc+PHRhYmxlIHdpZHRoPScx DRNwZyVoaMivDB7qPt7uJHTn LWNv bQhwjJOuSyUkw4ktSGGsXEdj LY4ilJjhH5BmvDP5HJCgk8n6 Pt41T28zK4YlhMP+PGNvbCB3 aWR0 yC5qBvWyJaV6NTqpY153ArIe wYIrJjinu4paq1ohcEc8YfS7 LYBayeXoaWywKGT6l0OnLe17 Y29s IHdpZHRoPSIxNSUiIHZhbGln ib8xlZ9gQq6+RWKmmFC9cNC5 oG7nXaCdUkX2WUudA199PtYw cCIv Ywjls0zpu7ugePq5TiXdLBJn tgLvjMqsIWG4l2QwBv63M1Fz oDayl2KoOvw9bp87dLJoq2Z6 bGU9 W8IjVULosqtabIQjpWqgNI1l WAYsrdalHPXebC0uGLOaV7j0 KsLrSoQ8BAfvG9JjgzI6OGNk bGQg HAEkmRIQjA8zuvudf4hfeqrg JsDbFNCfPIr7WGv0ZZNceUuw MhGjJGP3AlE2LCR4yAYfaQ7n bGln joyhaB0aOww+OFM3fZHekZOM ZL7rWtdhgJF+UEBsOED9kUey ROkpXXOshI9sOGZlL6c0CzCa LjA1 GZdiR2LdohD0SKBxvMWnOFDl cKPEuP9saryhn6byppsdCyHi NZIyNQu0FXu5QKFihNxvBkSo ZWZ0 XsS4UQS0fAJfuS9lkHlgvwbz sK1qTfz+ZtrtrBpwGLQ9HMf2 K0UtBcf6XZCzmVfeVU6bbMSy ZGlu Nh9geVqtyZdzJN8tEFZnfvbf t686CkObj5ewCAFgyEChKPlo AHY0Q85bn3O6TREnDUNqLLX8 dGV4 jX7wgEzuepefsVEwcWntscVk iOpmLXuzWDurX192NZBjwKwj MeDlAAo8R0WjShb7HHRhxFca ZT0n fMFdLQdbWa1deSzhnZzfCJ9t XQBoalhjw318GzFuo1stZDHi fKFoHNndLQP3R41ha8U0WDEg MDAw FVF8iLT8mM0wdHyijnstyAOe sHkairIitVjeMRxmWMdeI174 YFKevRmxYjMczQw6P5OmZfg4 ZCBz eYieUP5quGKcCYwaWo9lxZly kFzxMU2zMNEvczksy546WmYm o7ozCHHvkIVhFSuwTSD6X75j b3I6 MYUtLYMpKIS5dYZ3kU4liNfy bjogbGVmdDsgdmVydGljYWwt JBsyE231LDJpgTasBlBviLhz bnQg KEiuLNx3T5OoMvbtyGY+PC90 NUIbUL89kOMnbACin3tfwJl2 RkMbOCYdIAR1nIcjIBzmf5Do ZXIt B81qzHWff1R1XLKuoBzqgHWc KqSdhBO4wD6jROpcqgfta2pp tvphQjnwo0ishi94lP92V95y IHdp UXAuTMJhHKVzLKMssCwdqd6w fX9fSi0+EFJffON8fSV0mN2d QJBgFxL5MZisQ092MeKghBAv Pjxj z5hnp7sgtTr8GwQ5QPPwvaFx fBunBSS3c4DgRz76U82nMCia XLUzESBeCLGcJONkgRjqqf9y dG9w Ii8+SJKaaOQ3jMZ0fK3zAaUw JzK4MJqxG741LpOjuYNlAjog N75fN0KzuTX+GDOfYpq2CVNy dHls SA6gcFRpJNrzCe2aQWQ9AgLl PvDsILgjH2KeAJBkfgccevhw fSR3EPBfFWPyyL29Li9hdZtf MTBw dOIUvK3cggpee4yuljjzMiNj EEGySGk9VXa5PJAnyTdvGdPu BDR5GwW0FUD0hMVwdO1fdPtk bjog eV0tD5WyITSluignRf30eI5v DbAjTsC8PNddWan+D0vXS82M PGBXT3pFAXi9Y5YlJqv3LKTc dHls XO3auMMdZUksIg8rmComeYmp GD4pWQVaxpmoKWIatA0pWNZb xZCphXfkNZ9fMPOqiqxbw357 OiAx UVY1ZOZqpXGxN6VvhA0pQmQb UOLmJLSgS7YmmYTtEAepM252 TVokSuM9ZMVdwiPpI5LoZZVw aWdu SiF1f5D0Pd4sAW2hQT5oOIB6 OX93ZD65pCAxr8V3mBX3K6Ok CMAvhswxqwtakYH4LKQiATBv aW47 eNWtOPuiSo6jv0A0c282FTBk MQGogX34Xa9cjZylVIOstMCJ hG0xndrit4eyksfdOgKqGMVx MDt0 KWr0RFBwoTtkAlImBVV8HkS3 UNT7qENyjX0ucEenhuiweT9w Oyc+ZfpkLJPxjvM3G6OvAwt2 ZCBz pTwqOU4mdDXlMTmnVh1bhAxl kQxeXB4oNKMgiskmJEPsnN4v VWZklFDpfDrmKF9oVMZtopec b250 CcZsPTJ0OYWxbAXcH0AreI1v ZsEiNRNaIOPlC4HbgYYcMHzv K702JWocNlB1MDHdseXsH4Zj LWFs fJglIoP9q5B4Co3CYLtHJV20 NG58cVUgr7T0zPJ2R0WrUJNc cbxytksomOB6VSUdBYStfZ19 cGFk BLkuUu9fm1O1c398ZKSqIPNj mY01Wn2mmTcmWEJkpRDPwX8g ffrxh6cwfbslEqRsKLSsTSp0 ZXh0 INPkcAndEgRaNIF8QzJ1DJZ7 kMOtfU1esZnuasfkbS4uXox+ BX2afpfpbfH3QX05PY96T3Ja Pjwv dGFibGU+PHRhYmxlIHdpZHRo FEqqKGBeUoDeeHdbPF9aXs5t OKFkEWXyrQxaxDQvGoWkh8jh YXBz AWmlZX3gpKgaA7TylNK7TXVa s6x0Dp41H21qJ4TxqOY+PGNv jPN7gZP8fA4vJhRkElO3CPxo Z249 PqNpkJSsUuofs7kfi0tzzNm3 HhQkWOFfxqYvkBaoSOR0b0It Yx18F38gIOtjGWWoZVTzTEJs IHZh zKtyra0fhF9uXs1+PGNvbCB3 oJS7bM5cVyGfZfJ6LYgmP034 GrBajSEmClilP38eD3DupWM+ PHRy Rec2HGBgcXpsUH3ofNLqZJey Bz1uVGG4JzZoDaDdZSovU2Yk FZDueboagrupuCH4SPFoKUDx aW47 Ky3jmDaxRg7hHBHrKDX1GIUh gUKeM8EemZ4yReXsQYXeTYGr A6IngMGvBOcmS444YDlfZcK9 IHZl ouVgT5RpFNGpfArmOlM9i0J4 Nk8SnUsxdOCgQP4vCxCiAKk6 O6OmXbh9NXGzwNeoDQ7ibLQz ZGlu Cm4tqJoehBdqGK8hBLZwjekt r735CcFxr8dgTRMglIKaRWzj VIS2A26qo0D2NZChVAItFDA0 dGV4 bW7hhCfebomusGFghYukowMg bOngYKrfKGxrC148VIPqfCwh GaDRWlj4X7SwZhr9VVWfvLhp ZT0n hRZlBQvrUo8wnBzrpOafTG0g BVFklunmu562LqHam8qePOUc uNPnTXeiBNH8U99lk7K1ZBNo MDAw NAZ4yPT0zZ0ktGqiaztnbBFb uQjlmkYngEtfGLdtLXejJ831 XACrhHeaQc5VTtg8E7FzTzk8 ZCBz wNqoJI6neATrXYefKj4ilBly rEnuVP3zTZMtuozoy665ZeRa w3jcGRPeoRHpDQjxORH3Z64p b3I6 DFEwVIFwHWC5fDN1lQ1zrMkr bjogbGVmdDsgdmVydGljYWwt BYihY062KTKnmPsqYpOksOKa Ojwv dGQ+LI07qg99Z0SqXkfuHue1 FPXeZKI5wMW9kC6gMFVrCZyg h1K1kRZ6B8KmaxJzna2sy9ao YXBz ZTo (more content not included)... [facility] Consent for Procedure/Surger yon 11-05-2023 Consent for Procedure/Surgery [id number]#[id number] F [facility] Lab Reportson 11-05-2023 Lab Reports [id number]#[id number] F [facility] Lab Reports [id number]#[id number] F Kiki [facility] Lab Reports [id number]#[id number] F Normal [facility] RAD - CT Reporton 11-05-2023 RAD - CT Report [id number]#1.00TIF F Normal [facility] RAD - MISCon 11-05-2023 RAD - MISC [id number]#1.00TIF F Kiki [facility] Coding Summaryon 11-04-2023 Coding Summary HTMLBase 64 NbfofdeyUMl1uEt+PGhlYWQ+ [id number] TElOSywgQVBQTElOSyIgbmFt EF7chPJzACIg IC8+EJ5pPLTgJmdxoFDme5K7 aHJ2O96ssr4yLQavtHJ7DUDo UjVoapekh4cniCu1EEqeMpbe OyBt XHAcuE27LII1xA77Bi81fGUc rDFok6zteTh3ZvIaBVSwRBI4 jLpmEDcqw6HcWNCiB11cfIAm c2U6 SJDaqDpfxNLwZhZvtGI5cM6r AJokpwigj4aufvdyPhp6br89 vERxn1X6kHG2E0TlajV5UQUw bGQg HtxdzXALaN3iruuwr0faczqq IlKfLLWyVJe8QTa8KUXtrNwv FkFfSU10GXT7VUCfjmJzU2Xi LWFs eRdvWbG4w7Q0Sd4TE7SQJjey K0UUHQVOPSxbvTM+AR96mr11 U0JjDxioDla6THDhPFB5xUE8 aD0n UMKeGSngh2Q2nBH1P6KntzFl mq6pr4vzJYXeTKmlU99ozPWm v3J0HBDbvQY6VJBpcFzyPqQk aG93 Oyc+UBVitNujh7SrHzvtq4sz x7hhfUf0XtlkDIGlypIkaMpa GCG8c3TrUu7zMMNmgDU4wNM4 aD0i WvIoAuC1AMebT282PrSwsIJy NvtzG56kE5QbdCT+PHRyPjx0 UVUdgAezOL6dR8NyMAVcgouh bGVm xLdsDX6fLLAsledmVCWrgB6q UAFnR2t7PhGxGpG7KLtmO2Tt YOBwnnmdAu48tI7nTzTzUxB6 MGlu P0AobrE6JYDzbYFaJYzhBGB3 U20vt6X5QZVyYITzJUJ2vKE1 wX8iaTgpeikqgERzzHsnqbCt dGlj XSjuCNlrX588WKSzzHyqYsOb ZGluZyBEYXRlOiAgMDEvMjkv MjAyNDwvdGQ+PPJkJLR3xMqc PSAn lVArUMxfYu6hxHfdeAsxSZ5f LLQuczqiKXCcvW2fPQDumAOv oJhoUS6lXAYhxlrbf350KdAn MHB0 XTSinKPhO6BspD6rQyNmDRIs EUVvJ0IqfHPyZRgrK205WYky EbH5OHLkxeNcP0OsSGRuoNos OiB0 r9T8Om3Or0VillqqJ1UgxVHr StByXywtAWj2F6SoHcdwqSF+ BI81KDKmER28KDc7GNO9sPsq PSdi GTZmQ9RciT3lVzQmQDViGKFs Oyc+PHRhYmxlIHdpZHRoPScx TGLfBtAxzIvbZX9oPz5aTMAk LWNv iYyybOPePeAgx3djKUBfGKao AZ0dzAtjR2GyiMU5SFXzw1h8 Lj62I92eF2EiaZE+PGNvbCB3 aWR0 nY6tEsOoUiF3PNhqN108YpZz mPKiTqmwp1qas8tbmPu3QiY4 STZicpNhhRpeZGJ1o1XiVg02 Y29s IHdpZHRoPSIxNSUiIHZhbGln gl9mgZ2pOp2+RXXbfBN5aYI8 zY0hSkJoSyO0VLixX581SvRw cCIv Jogub0ohn5stuXm3CzTeFTFz qnFdxXkbVNQ4o2BmWd77H9Ot eLfts7FjPzw2uo50kGVmm4L6 bGU9 S0RnCQArczyaiXWnzFwrHB9t ESGhrqmlUHIboP9fJOBxM4r4 RaWdZvT4TEzxA1TgayP0ANZv bGQg MBTzrTIRqA5jaeuom0qklkfk EpBlRBDzEHz8RNw6DXLiqApp TbOiDAP7MmK8YNL0bBSolE0c bGln soutwJ9lHpo+WNK5qTImmGJX SV9uAmwqnRX+AFUuFPT1xRai QOniZKPnzN3kHADdQ2y9BvJa LjA1 PHjjA3LqhcL8EFFfgPDcJETr zXEUzL7gyrkoh1jwlputHqAy ITCrWIn6FGp9ZVEfyCmmPyWs ZWZ0 RoS7KRQ9iLZumP0nuRjfbras hT3aSys+JajuqZhjWQJ0ZTh7 V1IbXqp3DJRndLfpRK5iaQPq ZGlu Wx2ekDghkCrlFW7xUYMmmsvl v797DeWab2rsAUQvlDGrBQqw BNQ5U75zk9U9YCLdFFNeTTM3 dGV4 jC2lnKzbmvuelAGmeMojtiEa pKsbKKtcEDggF716VZVloFty UhZeZVp9U8WgTch4NDTqaWhs ZT0n mQCmWYssFo9swUnkkFxoCL7a MYSxeectf315EbWsu9mbQRUv rBWnAGhlIZA7Y50el4L9VZVh MDAw OYS6oCH9iJ1gtXhzanuqeIMr iQrmrrPkzMbrURoyZIdrC526 VOYwdWacJmXznYk4H0WtMjz4 ZCBz jHccAP3olFZhHQomTo8vsFlr zVziHK0cWYYzwijyy237QrAa e1uvBOSmwZZpCRjdCDA4F34y b3I6 OPGwQUIwKVW4uFG5vV6wcWvf bjogbGVmdDsgdmVydGljYWwt JXfqG936HEWyeRsmRsPtpIoi bnQg LPqkSOv3Z9SbXdnsdCG+PC90 UVBzIN07lXDatRPkp3yhqNj0 NwCdYUSwKYK1pBibIZgtu3Gz ZXIt M81ugSEah6R2AYCdpKljoGIa CfWhvLX6bT4mMCislmypi9os vyboZwkot4bfgv86oK75I12t IHdp AMWbYDPhUDMcTRFrpKhozm5e hM9hAh1+DJKzvQI7dNV5kB5g ZHXxKiO1CAwrN628GdUtjBKb Pjxj u3xyf1yhnTh3EfM2CBDiqiYm qFwsYJU9i0BjTu30L35iWJob PKHdOTSkRXSuJGXjxOdxui3l dG9w Ii8+JNZogEH8lQZ1rQ4kBgFe GxT0XGgcZ506SlRruXXwWmsl M53tC6UojOZ+ACBeTkz3WBOw dHls WT5ssDEyPQtbBx6oGGR0KkCp PuDoJOcmG1VjWDPnoorjtyfp fNL3OFCaXOGpnU20Zw1jpOyc MTBw uUIFrJ0cqxwvh5hfxaxbKxXq VGLzOJe2FQq7AUCraSgvRtAa SJC3OkF4HMG8rKKckE1ubMfn bjog jN3wJ3LtTXQyseuhVt13wT4l VgTvFhD3EZdqXmp+S0nOD57W JHDYW2vGDFn7L5NfMpk1GXJx dHls NV2mqESzSOhdKl5qkRvwsSlt CP7eAHTztbxsGHAotH4eWYAf eFEjaZrsJJ9rKJFbyndsb718 OiAx MJE2RQXnkJPeF3MxfI8aMmXk SYPpFPQuC6AgiHEqXGpoJ678 ULlvXvI6EUFgixGjW9XuYCMr aWdu OtS9m8G8Hx1sIJ6vTX7uCWQ5 FC29JM98qEHvr2D4kGJ1M3Cp OUYcvoohngqvfPK8LQNlPILh aW47 qLHgGKwxAh1rm1J6w971NXDz NMAlbI97Kp5kbWtbGUWpdSAH bJ2wuzprj7vwkataIrGkQJTa MDt0 TRd3QGNroBtyMkJjIPU1JmV7 MZG8pZPlbT0mhEppbejmvJ5n Oyc+DfypSTFogqB6S7LqMra6 ZCBz vQfkDF8zyWWhEAtxAy8anHxe sUjbYB3sJPZxdtzzSWNspF0k WTZkqRLjvRgsGN9uWRLzjvew b250 DzAbOUJ0TUGhdJWaT8OcsK9h IqXeREHwELDuP2LldSGzGXra H930YMpwJbX0SGLkqeCdD4Gc LWFs eUbdLzG3o9F7Gs2RIJdUOE45 DN01eRJbl6E6tQB2J5VqAYUp smrwfnabkHD9VTJrIZZoiQ87 cGFk PUvwIr5yj1I6q341XWRwXLMa bZ81Zj1slUlzEWYbwGOFqJ8v meiaz7ahnucgGgQhJKDbUCu6 ZXh0 SJRteQsdOqChJSO5JnA9OWQ8 wSGilP6ymIwxofavpB8hLap+ DU0zjrhmmhN5ER64UJ40F3Fy Pjwv dGFibGU+PHRhYmxlIHdpZHRo WYxfTAMrYdWfeFahCI8fFm1u VHKfCNYyfKxseJRbOwSgn8ir YXBz KMkeSC5wvKddG3QsrBM0BFMu p0g4Cx65N81wY8UfyKZ+PGNv cLT4bBW7xB6kMoMfCiF0KSpj Z249 LcPcmQRaFcbno7dcw3lxpGl1 UsJyJXZkkkRskFvnKPH3h6Hz Tl78K40bWGdkSUDfGOAwSLDa IHZh dZjqtd5wdR9tYa7+PGNvbCB3 eYH3zA4aRxCpOqY9VGikI323 JtPtbQQyPjxwS09qN9CpyUT+ PHRy Wfy3NLRqeLnfZO1xpGXlQVxx Yt7iYYH3FuLxMxDpTWibK7Ei GAAuspbawwzwbHZ1JTRrXIMf aW47 Db1caXwlAy7fKVPmTMB2DJOb dGQwV2LblF4kWjEkNHMgTYZz C8QfqZMiNXliD993WGvqMuK0 IHZl soUoO6WuQLLshPuwBbJ2j1Q3 Qq7TkHdvtBRoVL9mJyOuMKd9 D6ZaUwt4OGTvvOegVS4fuFSw ZGlu Eo6cvQpvmHmgLN7pCEGfxcyf u325SaCmz0jiYIJjpHFgMKyr TZH2C48zh8N9GZCvUTJaBPT5 dGV4 oE9seCxwolfmhUCgwGsiwiAc fJeaYNupHPwrA288LSNgjKar FpXNJan3J0DuYdr0YMXvdKoo ZT0n xBUfAJhrJc0irMqapQtzEV8p TFUcglzlt359EbCyi4ncTTOf dUKnMTceQXX3B89bc5W5ZVJx MDAw BZU5sSQ3iB2dySvddlxscSWd tLljhsKbxWxdNDsaLAquB996 PSZvwWbzTs8KKse3S7DsOlm3 ZCBz rKrcZO4owYEuGKpySt7jhGjr lWokFV3vIKHqrjaie522ViBm z0yjFBKgrBHtKYraRRX3Z40a b3I6 SULbTHKiJLY3pHM5oH6pzKpy bjogbGVmdDsgdmVydGljYWwt XWnwS575FUWzrGulQyBkeKEc Ojwv dGQ+QZ63jo04F2HnTmlyTij5 ALRlKLP1kIO1rZ3sYYWnMWem k3J4jEZ7H6YcmgZmjd7eb6ar YXBz ZTo (more content not included)... Normal [facility] ED Note-Physicianon 11-04-19 ED Note-Physician [id number] 1022 [id number] F Normal [facility] RAD - CT Reporton 11-04-2023 RAD - CT Report [id number] 1022 [id number] F Normal [facility] Patient Educationon 11-01-19 Patient Education Urology Kidney Stones Kidney stones are rock-like [...] these instructions at home: Medicines ? Take ysyx-wff-wknfwkw and prescription medicines only as told by [...] provider. Document Revised: 05/28/2022 Document Reviewed: 05/28/2022 [email or web address] Patient Education ? 2022 [employer] Normal [facility] Urology Office/Clinic Noteon 11-01-2023 Urology Office/Clinic Note Chief Complaint nephrolithiasis HPI Staff F/u to have drain removed following perc drain placement at [place]. Previous dx of nephrolithiasis, BPH with urinary obstruction, hypogonadism and organic impotence. Dutasteride 0.5mg QD. Cysto, left pyelogram, left ureteral dilation, ureteroscopy, stone basket extraction, pyeloscopy, laser lithotripsy of left ureteral and renal calculi and stent placement done 10/17/23 at [facility]. Dysuria: no Incomplete bladder emptying: no Hematuria: no Frequency: yes Urgency: no Nocturia: 2-3x Stream: good steady Leaking: no Post void dripping: no Wearing pads/ Depends: no Urge incontinence: no Stress incontinence: no Incontinence without Sensory Awareness: no Abdominal pain: no Flank pain: left sided due to surgery rating pain at a 3-4 and states a little on the right rating the pain at a 1 Sexual complaints: no History of Present Illness Tests Reviewed: Reviewed UA, op report. I have reviewed and verified the staff HPI to be accurate for this encounter. I have reviewed the previous health record information and history for this patient from Dr. Forbes There have been no associated fever, chills, [...] tendency. Psychiatric: no confusion, no anxiety. Genitourinary: denies dysuria, mild hematuria, denies discharge, denies urinary frequency, denies urinary hesitancy, mild nocturia, denies incontinence, denies genital sores, denies decreased libido, and denies erectile dysfunction. Physical Exam Vitals & Measurements HR: 54(Peripheral) RR: 16 BP: 92/89 HT: 74 in HT: 188 cm WT: 75 kg WT: 165 lb BMI: 21.22 General Appearance: alert, no distress, well nourished, well developed male. Flank Pain: moderate S/p stent placement, and drain placement. Bladder: nonpalpable. Procedure Left flank drain was removed with mild difficulty(mechanical drain issues). Patient had some pain and discomfort with the drain removal. Drain was removed intact. Assessment/Plan 1. 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 Patient has a left ureteral stent in place. Flomax 0.4mg BID therapy, and Dutasteride 0.5mg therapy. Patient to continue medications and call office if he needs refill. 2. Nephrolithiasis (N20.0: Calculus of kidney) S/p Left holmium laser stone surgery done 10/17/2023. A few days after stone surgery patient developed pain and presented to [facility]. Ct scan showed fluid collection. Dr. Harrell was called and requested patient be transferred to or [facility] for drain placement since there is no IR locally. [facility] transferred patient to [facility] instead. Patient had drain placed last saturday, drainage in bag is light red. No volume in bag. Discussed with patient with obstructing stone, the kidney can blow a hole to decompress to relieve pressure, which could of caused the fluid collection. He had a lot of inflammatory debris at stone surgery. Unsure if this is what happened. During stone surgery, no fluid was collecting at completion of stone surgery. Discussed stent to stay in for a few weeks to allow the area to potentially heal. Will schedule Cysto, RG, ureter and possible stent removal in 2-3 weeks. Left flank drain removed without difficulty today in the office. Patient tolerated it with some discomfort and pain. Patient does have pain meds at home. He is not taking any stent meds, denies any discomfort from stent. Discussed will send script if patient starts to have bladder spasms. He is to finish Cipro therapy as directed. He will start Levaquin qd therapy from script st home after Cipro completion. Risks and Benefits were discussed with the patient. These include bleeding, infection, pain, and need for additional procedures. Pre-op consent reviewed with and obtained from patient. Order General anesthesia. Patient is leaving for vacation 11/14- 11/20 to [place]. Will cameron to do surgery upon return from vacation. All questions and concerns were discussed and addressed with patient. He verbalizes understanding. 3. Foreign body in bladder (T19.1XXA: Foreign body in bladder, initial encounter) S/p left stent placement during holmium laser stone surgery done 10/17/13. Will cameron to keep for a few more weeks, and sched Cysto, left RG, left ureter, pos. stent removaL 4. Hypogonadism male (E29.1: Testicular hypofunction) Pa (more content not included)... Normal [facility] Comment on above: Result Comment: Elec tronically Signed By: ANDREI WEEKS, Julio Woods\.br\Date and Time Signed: 11/01/23 16:10 EST\.br\Electronically Co-Signed By: Corie Skaggs\.br\Date and Time Co-Signed: 11/01/23 15:25 EST Coding Summaryon 10-30-2023 Coding Summary HTMLBase 64 FnccaqinNZx2yHn+PGhlYWQ+ RL1WVELqJ47sgLJkqH6nH5JT TElOSywgQVBQTElOSyIgbmFt IQ6luZMqYGHx IC8+QG6hUFZyRpttrMIju5F8 hCU5E43jmm6jEKlzaSE1NMLh LvSarujkj5thuPw3AMytHezz OyBt VHDkkV89QIO1dB42Ci09lBSg kAJsy6fylKb3DvXvXVZhFDY9 nPprVCaxy2UgKJBzW53igCPn c2U6 CSZhnIenoMBsBxWhjWC6zB0x VApdtyeey4zzgkcbZqs4og13 iQMyf9A9uGW2C5SstzV7MASf bGQg WcasqBEQsH2djuwyi5segufg ZsLuHYEzHZa5EUt1QOJbzHwv FmDoPM63VSX8MNZfspCpC2Ds LWFs fGtqMhG2x5D9Hz3PQ6TDHusb R2HKPIDQOSmyjUK+NJ70zj61 W0LuDatcSxp3GPNlNTN3iZR6 aD0n HSMwBQcob7I0vEN7L9UbwmBq kr3zl3deTVZbTXzkY74weGZe f1K1HBRmtBF9MOEgdDioLrGi aG93 Oyc+NTQtzTjqd9HpZrhrm4yz j5kwsGi2MracFYJzpgWdkGbi JTN7q5TqIq2tOPZyaDZ5dSW0 aD0i RvPcBzL4TRzaU523OhGtpXDj WrvmT87kB6KlzOS+PHRyPjx0 RRApsThjIM8sT5JpOZGtrdzw bGVm gKxrQD8jGXPjphpcLNLaaB6u MUYsW6d4XqWdZeQ2TFdpV1Oo SMJlersyAd99eL6lCjPgBzW7 MGlu Y0ZuqhV8QWDpcYKzYKmdNNK2 Q64ro5W9JVFvQSTqLYS4uZW9 eR7btXtlkrzneHHgpUlmhfUb dGlj YWvzVHmhK396BJKqdKbwDsTt ZGluZyBEYXRlOiAgMDEvMjQv MjAyNDwvdGQ+XDCxCXL9hNwv PSAn lNAoCPkjVk9tbFxxrPnePT4w FZLyglmsGIDtfY5sSGMtoIQa gTfqOF1gVSSvwiavc754EcWp MHB0 PJLlzOMtW1GuaU6dOeOvZFDy CSWrR9JatYOkHVdsN025SRrq LsR4LSDakzIoW4EjPIIsqPxc OiB0 s8Y3Xc7Is7IxjkafG6GkvRRo EmSuGzenCJa3Q3FkOuaxzDI+ LW23TZUjJN72WIp3TFP8qQln PSdi UWAcU5RvfU7vUkAaIUDyEROu Oyc+PHRhYmxlIHdpZHRoPScx GPDsYqHtdJlkZU3wAd4wMJGj LWNv bOqjaXPzZjWqv7ykQFZxDKpq CW2deFjlR1GygQL1HEMpi8p7 Tt10B49eH0XqsYA+PGNvbCB3 aWR0 kY1yWfRmOwC3SNynN850UzGg dVPkVplgb1fhj1kwsNb5HqC3 DDGecsLrxQhfJFS5y9LlPq64 Y29s IHdpZHRoPSIxNSUiIHZhbGln ei5omU3wRk5+PVVafUY9xQR8 dQ4tKtKiAeZ0VSpfH333MgDt cCIv Arpzh8soh6pjwOc2XqGyOOQm iwVjySmyCGW3i0VnMj08H7Xu xZzgb8HvFsv6xd43hMSfc8Z7 bGU9 C0RsVCBvooqyaGSlrYhkGB4d SYSbiwbjRWXaeR8oWHJaL0n5 YnUyPyL1HWjsF4MsriL8OQMt bGQg ZASxoBXOiX8ysbhmz9wgnuax QnSkNUAvYCj2TLe7ULMfhFgg QrKqXFW6AmJ8FFN1mQXvwJ5u bGln pxuafE6qLwv+YJI1dJAopNWA BD6dAfpqkBR+AZNmUYG1tLce OTjvIXDnsC4wNCQsR2w7SvUb LjA1 HVprJ1EwbzG9RUOqbLIhLYYw xBCLjW5qzxmpu3lwphajSlAv DOVmNFq8ZUj0ZZUyhPnzBpCu ZWZ0 HuK3IXM4oNRzsR6mmJbexbyt xQ7pXhr+SoqfjDyoZEY7VGy6 D5JoVju6WHOwkDpsZH0bqNDn ZGlu Un0uiGwmlLvkVI4pDVRxlllq l988MpVfi4cyLXIasQZsZWrw PIR4Q31on3U8CQZgACBkNVY3 dGV4 zZ6izIzyqzpphRLaeAughaRr jNyiTFztYGqyS040RMEccNxw StXvAEv1E5RtYth2FIIirDwb ZT0n aLUvAXibQv4yfUnwsHwdDI6s INScadvmv295AcXnt0fhLAXv cQOhPAstAZX4N19ko1T0RXTl MDAw OPX2yFF5oX0fuBcyvkblrIIj pSlrbkFesAqiTXmbECwlS586 ITVgdMdkPhAotEr5M5BuBbc3 ZCBz mOhpZU6sqUWmBGscMp4mrYmx rObhVM6gMZHmecvgt601MkOf a5xbKDXkgPYcZPlyKZA0S57e b3I6 SKWzAXVyPAO6lVO0dU1osDfg bjogbGVmdDsgdmVydGljYWwt BAwvY214ASIusMwyMuTawYxn bnQg AVveQNk0X6VgUyqffCL+PC90 UKYoYF49wRCpwRLhg9nkuFv0 RwPwXFJmYNE7oJbdRBvzh0Rp ZXIt P70ghJOns1W5PMHodRpkkKWb ZlIojPF4nQ7xBZipbaxlh8ud tzkrZmcbp4nrde98fK10D73z IHdp XIStBKNiAEUdEXPonHmtnx8l eL9mEa5+NJVikMB4wGU3uA4w SIJvCuB6KYxiX684EgBgrBFz Pjxj k0qxa7nwdXv2PvT6HNWdoqTg qYwjAPD4d2FvKy97U39uTVrd VRPjQYHyIFKhWGCwbZpogl7x dG9w Ii8+LEQezZF0lUB1eI2kNrGl GtX3RMryA957FtGmzJXxUxqd U99qG6ItgHE+ZBYeKju0ZHPu dHls UE2gvOGgLFnqGq2kDUM4ViNd ZqNhQVhdE2ZsWFNsoziwbziq aWC7ALKxLQMezB00Er4poXws MTBw eFNXrC9rbaenc9dtghlbGbQy BXIiGHn7CUx1QRJexIlfGePq OHX4EjJ4PNX1lWXodT4moXnw bjog qC5aD5HvQUGqjjclCt18wE7b FvNoNeK5ONqqNin+L1yKA12O IZWEC1rFNNu7B2OkKzi3VGWs dHls WN1fkVSjTPpuEb8zcFenhOwv IY1oBXDobhawEWZxaI2tUFUy aAKvsUgnFV1aTDDdolvje305 OiAx YCY7UQRsgSQtU0GppM9mXnWw RDBkKFJeG3PiyQKoNByiQ497 RRlvUoH5LRJszrTtP9FwYDOj aWdu XzN3i5E2Hl0lFG3bFC6bZTD9 BH43RE06oDExv1C7lOZ5C3Vs TRPhlettnvjjeEC3MNMoVCKl aW47 nDTdMXgeVs9qr3B4u194FMGk FWXmgU72Ex0kvNvbQAVilICV dX5noylbc5jjyubwDrPfWJHn MDt0 WZu7VTEdpBysEtFxICO4OdG7 EWG9aSXhvU6ahUhnzeumbI9s Oyc+NohgBORmwtS7L9VvBmo5 ZCBz cNzuKK8qfMPhFPdwRk5pzYqp cEllHT1qMWAedzhsWOPpoY7q PVEfkUOgnFydGA6kOAGktjss b250 BjWeGOA3SYZhqYPzH3XkrO6s BfHiZHQwWIGlU0AhpZRbHOxd E729KHomAvI2JCCpprPmY6Tn LWFs qWvmMlE9w8A5Pt7LVTsIGW23 YP33bODge6P4fNA0G2SlAWYy shxpzqpdjSP8KTOdVMJhtJ58 cGFk CVlfRb0um1Z0e971PCMgOLXq qA41Ez6niPneQUGdbDFSkP5j xyddn9krqpwcMrWmNZZwAGm3 ZXh0 HBNqmMebYpJwPCR1CeW1MJO8 cGGvlI0edAqybwstbZ1pOgb+ KD4qpdlbmiT7KU52TQ09G9Tr Pjwv dGFibGU+PHRhYmxlIHdpZHRo KMcaAPFwTqZifLsfAD5oEi3m JGPnKXRtvZhkkGXxMhYtn4ws YXBz GRmmOO7idVvmZ4QlaZO1SQTl l2v2Lg43U80xV2TzgUX+PGNv wVL9cAW4wJ9rOcCsGdS7BZvf Z249 EsRgzZMcUrued0cjc4rwxSf9 DlKvKKKtirAwnOisMNT0j5Qo Jy03T08fBXwaWMCnGSAqUEVg IHZh tLpubc2gtT9kKr1+PGNvbCB3 rTH9eL6uHsHmCyE9MThvM288 EhGejYOzNnmoN54sG6OerGN+ PHRy Fmf7CFChzSezYE9unMErVHxk On8cBWH2JnMiGlLgYBlcQ4Ed IUYkqtjftvbesVL8ILCiTENh aW47 Ym4kxVxfYs5gCSIgVKJ4SDHb qBXzA7NgcY9vSdSvTUAcDLCj R7MpyJYwOFdnT118PWwuDyZ5 IHZl iwKzH6SrVFDwwCjiAjT1z5X2 Sh6WhAweiOQeBX6wRmFtYYp6 I3RzMlt0FOYjuGniEP8lgDOl ZGlu Sf9vlKgrwGfjLM1vBOLpkjie y241SeWnv4smEWFwdWViOBrj IJP4W80ho1E6DKXaVDWgXZK9 dGV4 jQ7xwBnowrkohMSdqXplqkEc dUdxTKnoUSsxN349EBMkaOna HuVPHhi8M3KpRep8AXMdxEik ZT0n tQXxLViySf9xyKcjvSopKJ3k YFPcjqilm098VrZke1myBYJa eGMdCCgfXTE3D19ny2M5ZPPk MDAw MRL6bMV2iJ5ifLdhsyvrnQBy hLditpOpvXydASsfUWhaC253 BFFxeYwtBq5RDkn3T9YuCqi0 ZCBz vDosTK5klJXvURypCc9ibClp fDxjYG8bYFCqwvwhc419DeHy g2tmAFGgnHBcCXfqPWS7P45j b3I6 LSPaNHPbAXK8dZI2kI3grLgf bjogbGVmdDsgdmVydGljYWwt TGmlH104OIYdgWjtKnApaZJq Ojwv dGQ+EZ38mh00Z4TjLqymEph9 OXWuRTU5uYF3bU8pEQPvEIrk x4F4sHT9Y6JvyuCsjf9if0eo YXBz ZTo (more content not included)... Normal [facility] C Bloodon 10-29-2023 C Blood No growth at 5 Days Normal [facility] Comment on above: Performed By: #### 5 [id number] #### [facility] (DEFAULT) [address] [place] [address] C Blood 2nd site 15 minutes after first Blood Culture is drawn Pseudomonas aeruginosa Results called to Charmaine Boone at ED by SANIA and results read back for confirmation on 10/27/2023 08:48:44 ORGANISM PA - SUSCEPTIBILITY ORGANISM ID: 1 ANTIBIOTIC INTERPRETATION AL STATUS ORGANISM PAPA Amik S <=16 Verified Amox/Cla >16/8 Verified Amp R >16 Verified Amp/Sul >16/8 Verified Azt S <=4 Verified Cefaz R >4 Verified Cefep S <=8 Verified Cefo 16 Verified Ceftaz S <=1 Verified Ceftri 8 Verified Cefur R >16 Verified Ceph R >16 Verified Cipro S <=1 Verified Ertap >1 Verified Gent S <=2 Verified Imi S <=1 Verified Levo S <=2 Verified Nitro >64 Verified Pip/Chriss S <=16 Verified Tetra 8 Verified Tobra S <=4 Verified Tri/Sulf > Verified Normal [facility] Comment on above: Performed By: #### 5 [id number] #### [facility] (DEFAULT) [address] [place] [address] BASIC METABOLIC PANLon 10-27 Anion gap [Moles/Vol] 10 mmol/L Normal 5-15 [facility] Comment on above: Performed By: #### C BCA, PINR, [id number], CMP #### [facility] ([id number]) [address], [address] [place] [address] Calcium [Mass/Vol] 7.5 mg/dL Low 8.5-10.5 [facility] Comment on above: Performed By: #### C BCA, PINR, 56476-1, CMP #### [facility] ([id number]) [address], [address] [place] [address] Chloride [Moles/Vol] 107 mmol/L Normal 98-109 [facility] Comment on above: Performed By: #### C BCA, PINR, 52269-3, CMP #### [facility] ([id number]) [address], [address] [place] [address] CO2 [Moles/Vol] 24 mmol/L Normal 22-32 [facility] Comment on above: Performed By: #### C BCA, PINR, 13051-5, CMP #### [facility] ([id number]) [address], [address] [place] [address] Creatinine [Mass/Vol] 0.72 mg/dL Normal 0.60-1.30 [facility] Comment on above: Result Comment: METH OD TRACEABLE TO IDMS STANDARD Performed By: #### C BCA, PINR, [id number], CMP #### [facility] ([id number]) [address] [address] [place] [address] eGFR (CKD-EPI) NON-RACE DEPENDENT >90 Normal >59 [facility] Comment on above: Result Comment: Reported eGFR is based on the CKD-EPI 2020 equation that does not use a race coefficient. Performed By: #### C BCA, PINR, 47159-6, CMP #### [facility] ([id number]) [address], [facility] [address] [place] [address] Glucose [Mass/Vol] 83 mg/dL Normal 65-99 [facility] Comment on above: Performed By: #### C BCA, PINR, 96630-7, CMP #### [facility] ([id number]) [address] [address] [place] [address] Potassium [Moles/Vol] 3.4 mmol/L Low 3.5-5.0 [facility] Comment on above: Performed By: #### C BCA, PINR, 49113-4, CMP #### [facility] ([id number]) [address] [address] [place] [address] Sodium [Moles/Vol] 141 mmol/L Normal 134-146 [facility] Comment on above: Performed By: #### C BCA, PINR, 86983-8, CMP #### [facility] ([id number]) [address] [address] [place] [address] Urea nitrogen [Mass/Vol] 10 mg/dL Normal 5-27 [facility] Comment on above: Performed By: #### C BCA, PINR, 94357-6, CMP #### [facility] ([id number]) [address] [address] [place] [address] CBC AND AUTO DIFFon 10-27-19 24 ABSOLUTE BASOPHIL 0.0 X10E9/L Normal 0.0-0.2 [facility] Comment on above: Performed By: #### ALLEGRA Pappas BCA, 48618-8, CMP #### [facility] ([id number]) [address], [address] [place] [address] ABSOLUTE NEUTROPHIL 4.8 X10E9/L Normal 1.5-6.6 [facility] Comment on above: Performed By: #### C BIB PINPeggy, 13408-4, CMP #### [facility] ([id number]) [address], [address] [place] [address] Basophils/100 WBC (Bld) 0.5 % Normal [facility] Comment on above: Performed By: #### ALLEGRA Pappas BCA, 55994-0, CMP #### [facility] ([id number]) [address], [address] [place] [address] Eosinophils (Bld) [#/Vol] 0.2 10*3/uL Normal 0.0-0.4 [facility] Comment on above: Performed By: #### RICHIE Pappas BCAR, 41788-6, CMP #### [facility] ([id number]) [address], [address] [place] [address] Eosinophils/100 WBC (Bld) 2.1 % Normal [facility] Comment on above: Performed By: #### ALLEGRA Pappas BCA, 85474-1, CMP #### [facility] ([id number]) [address], [address] [place] [address] Erythrocyte distribution width (RBC) [Ratio] 13.5 % Normal 11.5-15.0 [facility] Comment on above: Performed By: #### Mian MCCARTNEY PINR, 43840-6, CMP #### [facility] ([id number]) [address], [address] [place] [address] Hematocrit (Bld) [Volume fraction] 43.8 % Normal 39-49 [facility] Comment on above: Performed By: #### Mian MCCARTNEY PINR, 90163-0, CMP #### [facility] ([id number]) [address], [address] [place] [address] Hemoglobin (Bld) [Mass/Vol] 14.4 g/dL Normal 13.0-17.0 [facility] Comment on above: Performed By: #### Mian MCCARTNEY PINR, 51018-3, CMP #### [facility] ([id number]) [address], [facility] [address] [place] [address] Lymphocytes (Bld) [#/Vol] 1.5 10*3/uL Normal 1.0-3.5 [facility] Comment on above: Performed By: #### Mian MCCARTNEY PINR, 20203-6, CMP #### [facility] ([id number]) [address], [address] [place] [address] Lymphocytes/100 WBC (Bld) 20.4 % Normal [facility] Comment on above: Performed By: #### Mian MCCARTNEY, PINR, 56441-1, CMP #### [facility] ([id number]) [address], [address] [place] [address] MCH (RBC) [Entitic mass] 29.4 pg Normal 27-34 [facility] Comment on above: Performed By: #### Mian MCCARTNEY PINR, 97570-5, CMP #### [facility] ([id number]) [address], [address] [place] [address] MCHC (RBC) [Mass/Vol] 32.9 g/dL Normal 32-36 [facility] Comment on above: Performed By: #### Mian MCCARTNEY, PINR, 27076-4, CMP #### [facility] ([id number]) [address], [address] [place] [address] MCV (RBC) [Entitic vol] 89 fL Normal 80-100 [facility] Comment on above: Performed By: #### C BCA, PINR, 70398-7, CMP #### [facility] ([id number]) [address], [address] [place] [address] Monocytes (Bld) [#/Vol] 0.9 10*3/uL Normal 0-0.9 [facility] Comment on above: Performed By: #### C BCA, PINR, 53443-7, CMP #### [facility] ([id number]) [address], [address] [place] [address] Monocytes/100 WBC (Bld) 12.3 % Normal [facility] Comment on above: Performed By: #### C BCA, PINR, 92538-1, CMP #### [facility] ([id number]) [address], [address] [place] [address] Neutrophils/100 WBC (Bld) 64.7 % Normal [facility] Comment on above: Performed By: #### C BCA, PINR, 78860-0, CMP #### [facility] ([id number]) [address], [address] [place] [address] Platelet mean volume (Bld) [Entitic vol] 8.7 fL Normal 7-12 [facility] Comment on above: Performed By: #### Mian BCA, PINR, 92739-4, CMP #### [facility] ([id number]) [address], [address] [place] [address] Platelets (Bld) [#/Vol] 304 10*3/uL Normal 150-450 [facility] Comment on above: Performed By: #### C BCA, PINR, 63149-8, CMP #### [facility] ([id number]) [address], [address] [place] [address] RBC COUNT 4.90 X10E12/L Normal 4.10-5.70 [facility] Comment on above: Performed By: #### C BIB, PINR, 67924-0, CMP #### [facility] ([id number]) [address], [address] [place] [address] WBC (Bld) [#/Vol] 7.3 10*3/uL Normal 4.0-11.0 [facility] Comment on above: Performed By: #### C BIB PINR, 15854-7, CMP #### [facility] ([id number]) [address], [address] [place] [address] ED Note-Nursingon 10-27-2023 ED Note-Nursing Spoke with Teressa from the lab, took positive preliminary blood culture result. This patient was transferred to [facility] ED on 10/24. This RN called [facility], spoke with Ruba BOWMAN, patient is located on Floor Gen 2, patient is now located in room A237. Fax #[phone]. This RN faxed preliminary results, informed Ruba from [facility] that we will send final results when they come, Ruba agreeable. [facility] POTASSIUMon 10-27-2023 Potassium [Moles/Vol] 3.7 mmol/L Normal 3.5-5.0 [facility] Comment on above: Performed By: #### C BIB PINR, 98327-4, CMP #### [facility] ([id number]) [address], [address] [place] [address] BASIC METABOLIC PANLon 10-26 Anion gap [Moles/Vol] 14 mmol/L Normal 5-15 [facility] Comment on above: Performed By: #### C BIB, PINR, 54887-6, CMP #### [facility] ([id number]) [address], [address] [place] [address] Calcium [Mass/Vol] 7.8 mg/dL Low 8.5-10.5 [facility] Comment on above: Performed By: #### C BCA, PINR, 93821-5, CMP #### [facility] ([id number]) [address], [address] [place] [address] Chloride [Moles/Vol] 103 mmol/L Normal 98-109 [facility] Comment on above: Performed By: #### C BCA, PINR, 30465-3, CMP #### [facility] ([id number]) [address], [address] [place] [address] CO2 [Moles/Vol] 20 mmol/L Low 22-32 [facility] Comment on above: Performed By: #### C BCA, PINR, 68986-8, CMP #### [facility] ([id number]) [address], [address] [place] [address] Creatinine [Mass/Vol] 0.84 mg/dL Normal 0.60-1.30 [facility] Comment on above: Result Comment: METH OD TRACEABLE TO IDMS STANDARD Performed By: #### C BCA, PINR, 26670-5, CMP #### [facility] ([id number]) [address], [address] [place] [address] GFR/1.73 sq M.predicted among non-blacks MDRD (S/P/Bld) [Vol rate/Area] 89 mL/min/{1.73_m2} Normal >59 [facility] Comment on above: Result Comment: Reported eGFR is based on the CKD-EPI 1 equation that does not use a race coefficient. Performed By: #### C BCA, PINR, 70935-5, CMP #### [facility] ([id number]) [address], [address] [place] [address] Glucose [Mass/Vol] 73 mg/dL Normal 65-99 [facility] Comment on above: Performed By: #### C BCA, PINR, 43291-4, CMP #### [facility] ([id number]) [address], [address] [place] [address] Potassium [Moles/Vol] 3.9 mmol/L Normal 3.5-5.0 [facility] Comment on above: Performed By: #### C BCA, PINR, 05981-3, CMP #### [facility] ([id number]) [address], [address] [place] [address] Sodium [Moles/Vol] 137 mmol/L Normal 134-146 [facility] Comment on above: Performed By: #### C BCA, PINR, 89673-3, CMP #### [facility] ([id number]) [address], [address] [place] [address] Urea nitrogen [Mass/Vol] 14 mg/dL Normal 5-27 [facility] Comment on above: Performed By: #### C BCA, PINR, 43279-8, CMP #### [facility] ([id number]) [address], [address] [place] [address] C Urineon 10-26-2023 C Urine Urine Culture ordere d as a result of parameters set on specific urine dip and urine microsopic results. >100,000 cfu/ml Escherichia coli ORGANISM EC - SUSCEPTIBILITY ORGANISM ID: 1 ANTIBIOTIC INTERPRETATION AL STATUS ORGANISM [facility] Amik S <=16 Verified Amox/Cla I 16/ Verified Amp R >16 Verified Amp/Sul R >16/ Verified Azt S <=4 Verified Cefaz S [...] <=4 Verified Tri/Sulf S <=2/38 Verified Normal [facility] Comment on above: Performed By: #### 5 [id number], [id number], [id number] #### [facility] (DEFAULT) [address] [place] [address] CBC AND AUTO DIFFon 10-26-19 Band form neutrophils/100 WBC (Bld) 1.0 % Normal [facility] Comment on above: Performed By: #### C BIB, PINR, 01566-7, CMP #### [facility] ([id number]) [address] [address] Erythrocyte distribution width (RBC) [Ratio] 13.5 % Normal 11.5-15.0 [facility] Comment on above: Performed By: #### C BIB, PINR, 63414-8, CMP #### [facility] ([id number]) [address] [address] Hematocrit (Bld) [Volume fraction] 43.6 % Normal 39-49 [facility] Comment on above: Performed By: #### Mian MCCARTNEY, PINR, 36639-0, CMP #### [facility] ([id number]) [address] [address] Hemoglobin (Bld) [Mass/Vol] 14.4 g/dL Normal 13.0-17.0 [facility] Comment on above: Performed By: #### C BCA, PINR, 99808-9, CMP #### [facility] ([id number]) [address] [address] Lymphocytes (Bld) [#/Vol] 0.8 10*3/uL Low 1.0-3.5 [facility] Comment on above: Performed By: #### Mian MCCARTNEY, PINR, 52754-5, CMP #### [facility] ([id number]) [address] [address] [place] [address] Lymphocytes/100 WBC (Bld) 6.8 % Normal [facility] Comment on above: Performed By: #### Mian MCCARTNEY, PINR, 66801-1, CMP #### [facility] ([id number]) [address], [address] [place] [address] MCH (RBC) [Entitic mass] 29.9 pg Normal 27-34 [facility] Comment on above: Performed By: #### C BIB, PINR, 55886-8, CMP #### [facility] ([id number]) [address], [facility] [address] [place] [address] MCHC (RBC) [Mass/Vol] 33.1 g/dL Normal 32-36 [facility] Comment on above: Performed By: #### Mian MCCARTNEY, PINR, 85626-1, CMP #### [facility] ([id number]) [address] [place] [address] MCV (RBC) [Entitic vol] 90 fL Normal 80-100 [facility] Comment on above: Performed By: #### Mian BCA, PINR, 39926-5, CMP #### [facility] ([id number]) [address], [address] [place] [address] Monocytes (Bld) [#/Vol] 0.5 10*3/uL Normal 0-0.9 [facility] Comment on above: Performed By: #### Mian BCA, PINR, 02046-1, CMP #### [facility] ([id number]) [address], [address] [place] [address] Monocytes/100 WBC (Bld) 4.9 % Normal [facility] Comment on above: Performed By: #### Mian BCA, PINR, 11640-5, CMP #### [facility] ([id number]) [address], [address] [place] [address] Neutrophils (Bld) [#/Vol] 9.9 10*3/uL High 1.5-6.6 [facility] Comment on above: Performed By: #### ALLEGRA Pappas BCA, 71624-5, CMP #### [facility] ([id number]) [address], [address] [place] [address] OVALOCYTE 1+ Abnormal NONE [facility] Comment on above: Performed By: ####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 other concerns at this time. [Electronically Signed on: 10/24/2023 22:54 T-05] Lourdes Richardson RN [Verified on: 10/24/2023 22:54 T-05] Lourdes Richardson RN [facility] THYROID PROFILEon 10-25-2023 Free T4 [Mass/Vol] 1.47 ng/dL Normal 0.61-1.60 [facility] Comment on above: Performed By: #### C BIB, BMP, 08871-6, 2777, THYR, PINR #### [facility] ([id number]) [address], [address] [place] [address] TSH 0.93 uIU/mL Normal 0.49-4.67 [facility] Comment on above: Performed By: #### C BCA, BMP, , 27704-06, THYR, PINR #### [facility] ([id number]) [address], [address] [place] [address] Transfer Noteon 10-25-2023 Transfer Note [id number]#1.00OTGT IFF Normal [facility] aPTT Coag (PPP) [Time]on aPTT Coag (Bld) [Time] 29 s Normal 26-37 [facility] Comment on above: Performed By: #### C BIB, PINR, 23003-1, CMP #### [facility] ([id number]) [address], [address] [place] [address] .Auto Diff 1on 10-24-2023 Auto [place] % 8 % Normal 1-12 [facility] Comment on above: Performed By: #### 1 [id number], 4168663, 22055695, 5061030 ####[facility] (DEFAULT)[address] [place] [address] Baso Abs# 0.1 x10 Normal 0.0-0.2 [facility] Comment on above: Performed By: #### 1 [id number], 7017652, 16178694, 5900167 ####[facility] (DEFAULT)[address] [place] [address]86 Basophils/100 WBC (Bld) 0.5 % Normal 0.2-2.0 [facility] Comment on above: Performed By: #### 1 [id number], 5702567, 38744776, 9021922 ####[facility] (DEFAULT)[address] [place] [address] Eos Abs# 0.0 x10 Normal 0.0-0.4 [facility] Comment on above: Performed By: #### 1 [id number], 7106257, 86739974, 1074894 ####[facility] (DEFAULT)[address] [place] [address] 17893 Eosinophils/100 WBC (Bld) 0.1 % Low 0.9-4.0 [facility] Comment on above: Performed By: #### 1 [id number], 5569728, 62551513, 7174496 ####[facility] (DEFAULT)[address] [place] [address]17[address] Lymph Abs# 1.5 x10 Normal 1.3-2.9 [facility] Comment on above: Performed By: #### 1 [id number], 3049727, 52672989, 2115048 ####[facility] (DEFAULT)[address] [place] [address] 41712 Lymphocytes/100 WBC (Bld) 7 % Low 14-48 [facility] Comment on above: Performed By: #### 1 [id number], 7921710, 65976627, 2503603 ####[facility] (DEFAULT)[address] [place] [address] [place] Abs# 1.8 x10 High 0.0-0.8 [facility] Comment on above: Performed By: #### 1 [id number], 9739179, 77697616, 1961128 ####[facility] (DEFAULT)[address] [place] [address] 60890 Neut Abs# 18.0 x10 High 1.5-9.2 [facility] Comment on above: Performed By: #### 1 064504904, 6996981, 07810457, 8066815 ####[facility] (DEFAULT)[address] [place] [address] 50159 Neutrophils/100 WBC (Bld) 84 % Normal 44-88 [facility] Comment on above: Performed By: #### 1 727572894, 6982834, 83570465, 2013122 ####[facility] (DEFAULT)[address] [place] [address] CBC w/ Auto Diffon 4 Man Diff? Auto Normal [facility] Comment on above: Performed By: #### 1 [id number], 2462292, 09243674, 9341499 ####[facility] (DEFAULT)[address] [place] [address] Erythrocyte distribution width (RBC) [Ratio] 13.4 % Normal 11.5-15.0 [facility] Comment on above: Performed By: #### 1 684756752, 1594932, 10623285, 8478589 ####[facility] (DEFAULT)[address] [place] [address] Hematocrit (Bld) [Volume fraction] 50.6 % Normal 34.8-51.9 [facility] Comment on above: Performed By: #### 1 334658413, 7741360, 78427017, 0404339 ####[facility] (DEFAULT)[address] [place] [address] Hemoglobin (Bld) [Mass/Vol] 16.7 g/dL Normal 11.8-17.7 [facility] Comment on above: Performed By: #### 1 641177194, 9582256, 76033627, 8875247 ####[facility] (DEFAULT)[address] [place] [address] MCH (RBC) [Entitic mass] 30 pg Normal 24-34 [facility] Comment on above: Performed By: #### 1 556248369, 4162268, 78695467, 7726678 ####[facility] (DEFAULT)[address] [place] [address] MCHC (RBC) [Mass/Vol] 33 g/dL Normal 26-37 [facility] Comment on above: Performed By: #### 1 712988508, 1812768, 46569636, 2640604 ####[facility] (DEFAULT)[address] [place] [address] MCV (RBC) [Entitic vol] 90 fL Normal 81-100 [facility] Comment on above: Performed By: #### 1 [id number], 9339525, 67852351, 3892735 ####[facility] (DEFAULT)[address] [place] [address] Platelet 335 x10 Normal 138-427 [facility] Comment on above: Performed By: #### 1 028161068, 6369979, 83441847, 2501896 ####[facility] (DEFAULT)[address] [place] [address] Platelet mean volume (Bld) [Entitic vol] 8.4 fL Normal 6.3-10.2 [facility] Comment on above: Performed By: #### 1 [id number], 7639929, 41125133, 2876044 ####[facility] (DEFAULT)[address] [place] [address] RBC 5.64 x10 High 3.70-5.30 [facility] Comment on above: Performed By: #### 1 729324822, 2497255, 19272647, 4343220 ####[facility] (DEFAULT)[address] [place] [address]11[address] WBC 21.4 x10 High 3.5-10.5 [facility] Comment on above: Result Comment: Slid e Reviewed Performed By: #### 1 [id number], 5801498, 19027348, 9463077 ####[facility] (DEFAULT)[address] [place] [address] 60090 CMP Standardon 10-24-2023 Breakpoint Chem Normal [facility] Comment on above: Performed By: #### 1 [id number], 5792562, 52493978, 7726778 ####[facility] (DEFAULT)[address] [place] [address] 63963 eGFR Non AA 58 mL/min/1.73m2 Invalid Interpretation Code [facility] Comment on above: Performed By: #### 1 [id number], 3941391, 66500442, 0241221 ####[facility] (DEFAULT)[address] [place] [address] 67141 eGFR AA >60 Invalid Interpretation Code [facility] Comment on above: Performed By: #### 1 935657501, 8192763, 91026612, 3925033 ####[facility] (DEFAULT)[address] [place] [address] 29835 Albumin [Mass/Vol] 3.3 g/dL Low 3.5-5.0 [facility] Comment on above: Performed By: #### 1 263520474, 4428081, 65632283, 2271558 ####[facility] (DEFAULT)[address] [place] [address] 20210 Albumin/Globulin [Mass ratio] 0.8 {ratio} Low 1.4-2.6 [facility] Comment on above: Performed By: #### 1 898891663, 3177551, 72698888, 8428390 ####[facility] (DEFAULT)[address] [place] [address] 35866 Alk Phos 62 IU/L Normal 32-91 [facility] Comment on above: Performed By: #### 1 215110659, 1720080, 58839191, 4232228 ####[facility] (DEFAULT)[address] [place] [address] 84075 ALT [Catalytic activity/Vol] 19.0 U/L Normal 17.0-63.0 [facility] Comment on above: Performed By: #### 1 925195672, 0141912, 72836388, 6830752 ####[facility] (DEFAULT)[address] [place] [address] 91144 Anion gap [Moles/Vol] 17.0 mmol/L Normal 5.0-19.0 [facility] Comment on above: Performed By: #### 1 238386656, 1019357, 71567534, 9858613 ####[facility] (DEFAULT)[address] [place] [address] 72536 AST [Catalytic activity/Vol] 22 U/L Normal 15-41 [facility] Comment on above: Performed By: #### 1 [id number], 3766385, 94459251, 2765120 ####[facility] (DEFAULT)[address] [place] [address] 28768 Bili Total 2.0 mg/dL High 0.3-1.2 [facility] Comment on above: Performed By: #### 1 368158529, 9656343, 52060629, 8021098 ####[facility] (DEFAULT)[address] [place] [address] 76117 Calcium [Mass/Vol] 9.0 mg/dL Normal 8.9-10.3 [facility] Comment on above: Performed By: #### 1 549349480, 9386925, 28647548, 5097199 ####[facility] (DEFAULT)[address] [place] [address] 28127 Chloride [Moles/Vol] 100 mmol/L Low 101-111 [facility] Comment on above: Performed By: #### 1 279942930, 3495193, 52300911, 5048437 ####[facility] (DEFAULT)[address] [place] [address] 72552 CO2 [Moles/Vol] 21 mmol/L Normal 21-32 [facility] Comment on above: Performed By: #### 1 270549096, 0557823, 32790754, 1624264 ####[facility] (DEFAULT)[address] [place] [address] 75882 Creatinine [Mass/Vol] 1.21 mg/dL Normal 0.90-1.30 [facility] Comment on above: Performed By: #### 1 674025606, 5080444, 12462753, 0423527 ####[facility] (DEFAULT)[address] [place] [address] 80177 Globulin (S) [Mass/Vol] 4.0 g/dL Normal 1.5-4.3 [facility] Comment on above: Performed By: #### 1 216946055, 4396515, 20498313, 9084143 ####[facility] (DEFAULT)[address] [place] [address] 43993 Glucose [Mass/Vol] 128.0 mg/dL High 74.0-118.0 [facility] Comment on above: Performed By: #### 1 934508580, 5379535, 40799465, 6032234 ####[facility] (DEFAULT)[address] [place] [address] 61082 Osmolality 271 mOsm/L Invalid Interpretation Code [facility] Comment on above: Performed By: #### 1 [id number], 4262690, 51502012, 6885749 ####[facility] (DEFAULT)[address] [place] [address] 15497 Potassium [Moles/Vol] 4.0 mmol/L Normal 3.6-5.1 [facility] Comment on above: Performed By: #### 1 759598908, 6453868, 35027657, 5926232 ####[facility] (DEFAULT)[address] [place] [address] 41936 Protein [Mass/Vol] 7.3 g/dL Normal 6.5-8.1 [facility] Comment on above: Performed By: #### 1 285255505, 2670901, 04873662, 9332784 ####[facility] (DEFAULT)[address] [place] [address] 44876 Sodium [Moles/Vol] 134.0 mmol/L Low 136.0-144.0 [facility] Comment on above: Performed By: #### 1 844573875, 9333575, 30834405, 3423329 ####[facility] (DEFAULT)[address] [place] [address] 18606 Urea nitrogen [Mass/Vol] 17 mg/dL Normal 8-26 [facility] Comment on above: Performed By: #### 1 146894036, 3282036, 95225684, 6259405 ####[facility] (DEFAULT)[address] [place] [address] 22524 Urea nitrogen/Creatinine [Mass ratio] 14.0 mg/mg Normal 4.6-16.2 [facility] Comment on above: Performed By: #### 1 319925489, 6243604, 80774995, 8339181 ####[facility] (DEFAULT)[address] [place] [address] Abdomen/Pelvis w/o Contra ston 10-24-2023 CT [...] Perla MD 10/24/23 7:18 pm Technologist: DANIELA [facility] Consent for Procedure/Surger yon 10-24-2023 Consent for Procedure/Surgery [id number] F [facility] Consent for Procedure/Surgery [id number]#[id number] F [facility] Hepatic Function Panel Stand ayan 10-24-2023 Albumin [Mass/Vol] 3.3 g/dL Low 3.5-5.0 [facility] Comment on above: Performed By: #### 5 [id number], 2945722, 0545604997, 0603831 #### [facility] (DEFAULT) [address] [place] [address] 49588 Albumin/Globulin [Mass ratio] 0.8 {ratio} Low 1.4-2.6 [facility] Comment on above: Performed By: #### 5 642051590, 7225174, 7501201847, 3093301 #### [facility] (DEFAULT) [address] [place] [address] 00506 Alk Phos 63 IU/L Normal 32-91 [facility] Comment on above: Performed By: #### 5 022001817, 3203360, 1767164926, 0177267 #### [facility] (DEFAULT) [address] [place] [address] 51837 ALT [Catalytic activity/Vol] 22.0 U/L Normal 17.0-63.0 [facility] Comment on above: Performed By: #### 5 286045684, 9307658, 7168875715, 0165917 #### [facility] (DEFAULT) [address] [place] [address] 02027 AST [Catalytic activity/Vol] 19 U/L Normal 15-41 [facility] Comment on above: Performed By: #### 5 994514219, 2744602, 5788704913, 8461537 #### [facility] (DEFAULT) [address] [place] [address] Bili Direct 0.40 mg/dL Normal 0.10-0.50 [facility] Comment on above: Performed By: #### 5 972582245, 4496061, 2838413857, 5815674 #### [facility] (DEFAULT) [address] [place] [address] Bili Indirect 1.6 mg/dL High 0.2-0.8 [facility] Comment on above: Performed By: #### 5 369708603, 3673583, 2976485080, 5550578 #### [facility] (DEFAULT) [address] [place] [address] Bili Total 2.0 mg/dL High 0.3-1.2 [facility] Comment on above: Performed By: #### 5 891785732, 1186014, 4147761650, 8924251 #### [facility] (DEFAULT) [address] [place] [address] Globulin (S) [Mass/Vol] 4.0 g/dL Normal 1.5-4.3 [facility] Comment on above: Performed By: #### 5 626629252, 5291469, 1115905207, 1416142 #### [facility] (DEFAULT) [address] [place] [address] Protein [Mass/Vol] 7.3 g/dL Normal 6.5-8.1 [facility] Comment on above: Performed By: #### 5 788197858, 1725785, 2871853178, 4341613 #### [facility] (DEFAULT) [address] [place] [address] 40939 Breakpoint Chem Normal [facility] Comment on above: Performed By: #### 5 598409277, 8044977, 9541797173, 2880752 #### [facility] (DEFAULT) [address] [place] [address] 67556 Lactic Acidon 10-24-2023 Lactic Acid 15.7 mg/dL Normal 4.5-19.8 [facility] Comment on above: Performed By: #### 2 891784 ####[facility] (DEFAULT)[address] [place] [address] 70065 Lipaseon 10-24-2023 Lipase Level 28.0 IU/L Normal 22.0-51.0 [facility] Comment on above: Performed By: #### 1 593174355, 2544214, 34460814, 8594734 ####[facility] (DEFAULT)[address] [place] [address] 06318 PTon 10-24-2023 INR Coag (PPP) [Relative time] 1.22 {INR} High 0.91-1.11 [facility] Comment on above: Performed By: #### 5 896028145, 2548003, 2960074425, 8312000 #### [facility] (DEFAULT) [address] [place] [address] PT 12.5 second(s) High 9.7-11.8 [facility] Comment on above: Performed By: #### 5 703125567, 4442634, 3235486117, 7238561 #### [facility] (DEFAULT) [address] [place] [address] 80574 PTTon 10-24-2023 PTT 31 second(s) Normal 25-35 [facility] Comment on above: Performed By: #### 5 238130534, 3177513, 0458054580, 1007810 #### [facility] (DEFAULT) [address] [place] [address] 71133 Progress Note - Nurseon 10-07 Progress Note - Nurse Patient is brought in by [facility]. Patient is alert and oriented. Patient is here for left sided lower flank pain. Rates pain a 8/10. Patient had a few kidney stones broken up last week and a stent put in as well. Patient is to have the stent taken out soon. Patient has a history of kidney stones. Patient is afebrile. [Electronically Signed on: 10/24/2023 19:05 EST] Nusrat Sharif RN [Verified on: 10/24/2023 19:05 EST] Franklyncalin January RN Normal [facility] TnI HSon 10-24-2023 Troponin I High Sensitivity 11.7 pg/mL Normal <=20.0 [facility] Comment on above: Performed By: #### 5 [id number], [id number], [id number], [id number] #### [facility] (DEFAULT) [address] [place] [address] Transfer Noteon 10-24-2023 Transfer Note 1930- [place] [facility] [place] T SE[place] [address] FOR[place] AND HAD SURGERY AT [facility]. [facility] [place] REP UROLOGIST DR TYLER HARRELL 1945- DR THAPA CALLED AND SPOKE WITH DR DIAZ 2026- CALLED [facility] [place] [address] DR HARRELL FOR TRANSFER 2032- DR HARRELL CALLED BACK AND ADVISED PT NEEDS TO BE TRANSFERRED TO A HOSPITAL WITH ITERVENTIONAL RADIOLOGY. OFFERED [facility], [facility], [facility] 2041-CALLED TRANSFER [facility]AL CENTER FOR [facility], THEY ADVISED THEY ONLY HAVE ICU BEDS AND THE FLOOR HAS A BED WAIT. TRIED [place], PAGED FAXED FACESHEET TO [phone] 2103-[facility], THEY ADVISED [facility], [facility] HAD [facility] 2106-CALLED [facility] [place], YES THEY HAVE IR, LEFT MESSAGE FOR NURSING MARKETING PROGRAM COORDINATOR 2119-[facility] [place] NURSING MARKETING PROGRAM COORDINATOR CALLED BACK AND WILL [facility] 2126- DR AYON [facility] [place] CALLED BACK, ADVISED THEY CANT TAKE PT BECAUSE THEY HAVE IR BUT THEY DONT HAVE IR 2131-CALLED [facility] [place] TALK TO DR HARRELL, [facility] [place] CALLED BACK AGAIN TO DECLINE PT 2132-CALLED RADIOLOGY TO HAVE THEM PUSH IMAGES TO PACS SO UROLOGIST COULD REVIEW 2139- CALLED BACK AND DECLINED PT 2143-CALLED [facility] TRANSFER LINE FOR [facility], SPOKE WITH PAT AND SHE ADVISED ALL ER ARE HOLDING. ADDED PT TO LIST AND SHE PAGED UROLOGIST. FAXED FACESHEET TO [phone] [facility] TRANSFER LINE [facility], HAD RAD DISC SENT ELECTRONICALLY 2211-ACCEPTED, TALKED TO SAMANTHA AT ACCESS, PT GOING TO THE ER 2215-CONTACTED [facility] FOR TRANSFER 2229-CALLED [facility] TO CANCEL 2244-[facility] ARRIVED 2254- [facility] LEFT WITH PT ENTIRE CHART AND RAD DISC SENT WITH TRANSPORT TEAM [Electronically Signed on: 10/24/2023 22:55 EST] Annalisa Daniels [Verified on: 10/24/2023 22:55 EST] Annalisa Daniels [facility] UA Eklcu3nd 10-24-2023 UA Amorph. Few [facility] Comment on above: Order Comment: Urina lysis Microscopic order added on by [employer] Expert Rules system. Performed By: #### 5 [id number], [id number], [id number], [id number] #### [facility] (DEFAULT) [address] [place] [address] UA Bacteria Trace [facility] Comment on above: Order Comment: Urina lysis Microscopic order added on by [employer] Expert Rules system. Performed By: #### 5 [id number], [id number], [id number], [id number] #### [facility] (DEFAULT) [address] [place] [address] UA Hyal Cast 0-5 [facility] Comment on above: Order Comment: Urina lysis Microscopic order added on by [employer] Expert Rules system. Performed By: #### 5 [id number], 5180861, [id number], [id number] #### [facility] (DEFAULT) [address] [place] [address]1467 UA Mucous 2+ [facility] Comment on above: Order Comment: Urina lysis Microscopic order added on by [employer] Expert Rules system. Performed By: #### 5 [id number], 0808946, [id number], [id number] #### [facility] (DEFAULT) [address] [place] [address] UA RBC 5-10 [facility] Comment on above: Order Comment: Urina lysis Microscopic order added on by Discern Expert Rules system. Performed By: #### 5 [id number], 7158222, [id number], [id number] #### [facility] (DEFAULT) [address] [place] [address] UA Squam Epi Rare [facility] Comment on above: Order Comment: Urina lysis Microscopic order added on by Dis[employer] Expert Rules system. Performed By: #### 5 [id number], 9824109, [id number], [id number] #### [facility] (DEFAULT) [address] [place] [address] UA WBC 15-20 [facility] Comment on above: Order Comment: Urina lysis Microscopic order added on by [employer] Expert Rules system. Performed By: #### 5 [id number], 7510653, [id number], [id number] #### [facility] (DEFAULT) [address] [place] [address] UA w Culture if Ind Standard on 10-24-2023 Breakpoint UA [facility] Comment on above: Performed By: #### 5 [id number], 6756083, [id number], [id number] #### [facility] (DEFAULT) [address] [place] [address] Color (U) Yellow [facility] Comment on above: Performed By: #### 5 [id number], 1411356, [id number], 9966065 #### [facility] (DEFAULT) [address] [place] [address] Culture? Indicated Invalid Interpretation Code [facility] Comment on above: Result Comment: Resu lt created by rule GL_MAGR_ADD_UA_CULT Result created by rule GL_MAGR_ADD_UA_CULT Result created by rule GL_MAGR_ADD_UA_CULT1 Result created by rule GL_MAGR_ADD_UA_CULT Performed By: #### 5 [id number], 8601050, [id number], [id number] #### [facility] (DEFAULT) [address] [place] [address] 85167 Glucose (U) [Mass/Vol] Negative Normal [facility] Comment on above: Performed By: #### 5 [id number], 7901361, [id number], [id number] #### [facility] (DEFAULT) [address] [place] [address] 29129 Ketones Ql (U) 40 Normal [facility] Comment on above: Performed By: #### 5 [id number], 7999437, [id number], 7505212 #### [facility] (DEFAULT) [address] [place] [address] 36104 Micro? Indicated Invalid Interpretation Code [facility] Comment on above: Result Comment: Resu lt created by rule GL_MAGR_ADD_UA_MICRO Performed By: #### 5 [id number], 5641316, [id number], [id number] #### [facility] (DEFAULT) [address] [place] [address] 63229 UA Bilirubin SMALL Abnormal [facility] Comment on above: Performed By: #### 5 [id number], 3455929, [id number], [id number] #### [facility] (DEFAULT) [address] [place] [address] 12509 UA Blood MODERATE Abnormal NEGATIVE [facility] Comment on above: Performed By: #### 5 [id number], 2317401, 8441063334, [id number] #### [facility] (DEFAULT) [address] [place] [address] 56556 UA Clarity CLEAR Normal CLEAR [facility] Comment on above: Performed By: #### 5 [id number], 7292095, 0072942489, 9408194 #### [facility] (DEFAULT) [address] [place] [address] 83353 UA Leuk Est TRACE Abnormal NEGATIVE [facility] Comment on above: Performed By: #### 5 [id number], 6516170, 4165273224, 6115714 #### [facility] (DEFAULT) [address] [place] [address] 79363 UA Nitrite Positive Abnormal NEGATIVE [facility] Comment on above: Performed By: #### 5 [id number], 3352006, 0408108428, 8325074 #### [facility] (DEFAULT) [address] [place] [address] 34798 UA pH 6.0 Normal 5-8 [facility] Comment on above: Performed By: #### 5 [id number], 4508792, [id number], 4043558 #### [facility] (DEFAULT) [address] [place] [address] 19764 UA Protein 30 Abnormal NEGATIVE [facility] Comment on above: Performed By: #### 5 [id number], 5655082, 6284492697, 8720369 #### [facility] (DEFAULT) [address] [place] [address] UA Spec Grav 1.020 Normal 1.001-1.035 [facility] Comment on above: Performed By: #### 5 [id number], 8381499, 8410855099, 6976430 #### [facility] (DEFAULT) [address] [place] [address] UA Urobilinogen 0.2 mg/dL Normal 0.2-1.0 [facility] Comment on above: Performed By: #### 5 [id number], 7556795, 3968906818, 0542722 #### [facility] (DEFAULT) [address] [place] [address] Urine Source Clean Catch Normal [facility] Comment on above: Performed By: #### 5 [id number], 0154761, 0385283771, 7110809 #### [facility] (DEFAULT) [address] [place] [address] C Urineon 10-21-2023 C Urine <10,000 cfu/ml Normal [facility] Comment on above: Performed By: #### 6 [id number] ####[facility] (DEFAULT)[address] [place] [address] Electronic Messagingon 10-19 Electronic Messaging --- --- --- --- --- --- --- --- --- From: [employer] ([id number]), Direct[employer] To: DANIELE PERRY Sent: 10/19/23 05:29:38 AM EST Subject: Discharge Summary Ready to View A summary regarding your recent visit is available in the Documents section of your Health Record. Normal [facility] .Auto Diff 1on 10-18-2023 Auto [place] % 8 % Normal 10-18 [facility] Comment on above: Performed By: #### 1 [id number], [id number], 4883320, 9102432369, 0536877765, 2357669221 ####[facility] (DEFAULT)[address] [place] [address] 06510 Baso Abs# 0.1 x10 Normal 0.0-0.2 [facility] Comment on above: Performed By: #### 1 8130694, 6709102324, 2211442, 5730606134, 1230318689, 2881411683 ####[facility] (DEFAULT)[address] [place] [address] 90875 Basophils/100 WBC (Bld) 0.4 % Normal 0.2-2.0 [facility] Comment on above: Performed By: #### 1 3310466, 9620682786, 3305896, 2774721246, 5217326467, 3451957421 ####[facility] (DEFAULT)[address] [place] [address] 56436 Eos Abs# 0.0 x10 Normal 0.0-0.4 [facility] Comment on above: Performed By: #### 1 2072297, 3854236291, 7858062, 3012437342, 9314811273, 1883532647 ####[facility] (DEFAULT)[address] [place] [address] 77501 Eosinophils/100 WBC (Bld) 0.1 % Low 0.9-4.0 [facility] Comment on above: Performed By: #### 1 3538460, 0248433942, 7941411, 1534690210, 3947899851, 1821017651 ####[facility] (DEFAULT)[address] [place] [address] 16310 Lymph Abs# 1.3 x10 Normal 1.3-2.9 [facility] Comment on above: Performed By: #### 1 2516269, 6846338565, 2943430, 9929378105, 4162484149, 6966910465 ####[facility] (DEFAULT)[address] [place] [address] 70081 Lymphocytes/100 WBC (Bld) 9 % Low 14-48 [facility] Comment on above: Performed By: #### 1 7434394, 7625239496, 2898904, 7390761820, 7078725404, 7247055551 ####[facility] (DEFAULT)[address] [place] [address] 64521 [place] Abs# 1.2 x10 High 0.0-0.8 [facility] Comment on above: Performed By: #### 1 4160476, 4281224702, 1610483, 3681984114, 3719855233, 7310624405 ####[facility] (DEFAULT)[address] [place] [address] 34992 Neut Abs# 12.5 x10 High 1.5-9.2 [facility] Comment on above: Performed By: #### 1 9652996, 9976558694, 9144368, 5062908778, 1097186213, 7887633204 ####[facility] (DEFAULT)[address] [place] [address] 08619 Neutrophils/100 WBC (Bld) 83 % Normal 44-88 [facility] Comment on above: Performed By: #### 1 9964465, 8012724570, 0670558, 7782583970, 5003782243, 0557551943 ####[facility] (DEFAULT)[address] [place] [address] 04439 BMP Standardon 10-18-2023 eGFR Non AA 34 mL/min/1.73m2 Invalid Interpretation Code [facility] Comment on above: Performed By: #### 1 3157714, 7681771090, 7725265, 8610499354, 9102069309, 5110213716 ####[facility] (DEFAULT)[address] [place] [address] 24767 eGFR AA 42 mL/min/1.73m2 Invalid Interpretation Code [facility] Comment on above: Performed By: #### 1 7161846, 7882434508, 5036823, 1250231121, 6338122643, 0630442653 ####[facility] (DEFAULT)[address] [place] [address] 93642 Anion gap [Moles/Vol] 13.4 mmol/L Normal 5.0-19.0 [facility] Comment on above: Performed By: #### 1 8718360, 0747021790, 2371798, 0991039982, 0299875660, 7941145647 ####[facility] (DEFAULT)[address] [place] [address] 98759 Calcium [Mass/Vol] 8.4 mg/dL Low 8.9-10.3 [facility] Comment on above: Performed By: #### 1 4127189, 1376676973, 1161864, 2748634475, 0193858250, 0347656306 ####[facility] (DEFAULT)[address] [place] [address] 58370 Chloride [Moles/Vol] 101 mmol/L Normal 101-111 [facility] Comment on above: Performed By: #### 1 8032727, 1426350179, 5830022, 8743682547, 0264446234, 0584329271 ####[facility] (DEFAULT)[address] [place] [address] 15027 CO2 [Moles/Vol] 24 mmol/L Normal 21-32 [facility] Comment on above: Performed By: #### 1 4377631, 9024806134, 4892662, 3988959914, 7209039629, 7811272678 ####[facility] (DEFAULT)[address] [place]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 PERRY Age: 78 Years Date of : 1945 Reason For Visit: Tachycardia; Nausea and vomiting; Flank pain; RT SIDE PAIN Arrival Time: 10/12/2023 14:36:16 Primary Care Physician: Amelia Batista NP Attending Physician: Jalen King DO Comment: Visit Diagnosis: Diagnoses This Visit Flank pain (515067203) Kidney stone on left side (N20.0) Nausea and vomiting (59876709) Tachycardia (3643412) The Pharmacy at [facility] is open Saturday through Saturday from [...] alcohol and/or drug addiction problems; contact the [facility] 29/04 Crisis Hotline -Text 5CLKO zl 369776. If you received any narcotics, sedation, or [...] legal documents With: Address: When: Julio Forbes [address] [place] [address], [facility] [address] Business (1) Within 1 to 2 days Comments: Call for follow up appointment Return if symptoms worsen Medication Information: The exam and treatment you received today in the [facility] Emergency Department were for an urgent problem and are not intended as complete care. It is important for you to follow up with a doctor, nurse practitioner, or physician?s orthopaedic physician assistant for ongoing care. If your symptoms [...] so we can reach you if necessary. [facility] Emergency Department has provided you with a complete list of medications post discharge. Please inform your huc ob/provider of your visit and for further instruction on these medications. Any specific questions regarding your chronic medications and dosages should be discussed with your primary care physician(s) and/or pharmacist. New Medications [id number], [address], [place] [id number], [phone] - 2022 acetaminophen-hydrocodon e (acetaminophen-hydrocodo ne 325 mg-5 mg [...] tab(s) Oral (more content not included)... Normal [facility] Extra [facility] 10-12-2023 Tube Collected Yes Invalid Interpretation Code [facility] Comment on above: Performed By: #### 1 [id number], 6926524723, 6484848259, 9186328, 57714251, 6973179027 ####[facility] (DEFAULT)[address] [place] [address] Extra [facility] 10-12-2023 Tube Collected Yes Invalid Interpretation Code [facility] Comment on above: Performed By: #### 1 [id number], 8483405168, 0896083691, 8263329, 97438934, 8634455157 ####[facility] (DEFAULT)[address] [place] [address] Lipaseon 10-12-2023 Lipase Level 38.0 IU/L Normal 22.0-51.0 [facility] Comment on above: Performed By: #### 2 [id number] ####[facility] (DEFAULT)[address] [place] [address] 39092 Progress Note - Nurseon Progress Note - [...] on: 10/12/2023 16:15 EST] Latonia Reed RN [facility] TnI HSon 10-12-2023 Troponin I High Sensitivity 3.4 pg/mL Normal <=20.0 [facility] Comment on above: Performed By: #### 1 [id number], 4231560293, 5387210206, 9993795, 79400587, 0659227004 ####[facility] (DEFAULT)[address] [place] [address]25 Screenson 10-11-2023 Screens [id number]#[id number] F [facility] Consent for Procedure/Surger yon 10-10-2023 Consent for Procedure/Surgery [id number]#[id number] FF [facility] Ambulatory Visit Summaryon 0 10-09-2023 Ambulatory Visit Summary DANIELE PERRY JR :1945 Visit Date:10/09/2023 Ambulatory Visit Instructions Your Diagnosis Nephrolithiasis 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 Tests Performed Urnls Dip Stick Auto w/o Microscopy POC 64446 Your Care Team Attending Physician - Julio [...] SETH When: Where: [facility] [address], [place] [address]- Medications What How Much When Instructions Unchanged [...] Urnls Dip Stick Auto w/o Microscopy POC 15760 (10/09/2023) Bilirubin Urine Dipstick - Negative Blood Urine Dipstick - Negative Glucose Urine Dipstick - Negative Ketones Urine Dipstick - Negative Leukocytes Urine Dipstick - Negative Nitrite Urine Dipstick - Negative Protein Urine Dipstick - Negative Specific [place] Urine Dipstick - >=1.030 Urine Appearance Urine [...] during urination. (more content not included)... Normal [facility] Ambulatory Visit Summary DANIELE EPRRY JR :1945 Visit Date:10/09/2023 Ambulatory Visit Instructions Your Diagnosis Nephrolithiasis 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 Tests Performed Urnls Dip Stick Auto w/o Microscopy POC 87329 Your Care Team Attending Physician - Julio [...] SETH When: Where: [facility] [address] [place] [address]- Medications What How Much When Instructions Unchanged [...] Urnls Dip Stick Auto w/o Microscopy POC 19620 (10/09/2023) Bilirubin Urine Dipstick - Negative Blood Urine Dipstick - Negative Glucose Urine Dipstick - Negative Ketones Urine Dipstick - Negative Leukocytes Urine Dipstick - Negative Nitrite Urine Dipstick - Negative Protein Urine Dipstick - Negative Specific [place] Urine Dipstick - >=1.030 Urine Appearance Urine [...] during urination. (more content not included)... Normal [facility] Patient Educationon 10-09-19 Patient Education Nephrology [...] these instructions at home: Medicines ? Take usth-vzs-nmgqxvf and prescription medicines only as told by [...] care p (more content not included)... Normal [facility] Urology Office/Clinic Noteon 10-09-2023 Urology Office/Clinic [...] [facility] [address], [place] [address]- Additional Instructions: schedule L ESWL Patient Education [...] Oil, Oral (more content not included)... Normal [facility] Comment on above: Result Comment: Elec tronically Signed By: Julio FORBES MD\.br\Date and Time Signed: 10/09/23 14:30 EST\.br\Electronically Co-Signed By: Hansa Espinoza\.br\Date and Time Co-Signed: 10/09/23 14:28 EST Coding Summaryon 10-08-2023 Coding Summary HTMLBase 64 ZcjawwprTAy0vSd+PGhlYWQ+ BY3DUNSvS39xmPJgnF3nW3WZ TElOSywgQVBQTElOSyIgbmFt QT0thHEiZVKu IC8+VU2wPRSiDunwiCHsi8W6 uKK8N28fuf4uUHbfsXG2ZXRn XmImvmdhk9uorMa6FShaKtqz OyBt ANVlnH20LON7wL11Sa01kAGa cNXdw3nrrTe3SfQvLISgPBC4 kAdrNHzyu4ZkMDHzB61nrVKp c2U6 SZNnlPwvzSGrVyYxfKL0lB5o WCmckmagr5vfarntGbk1ye80 sSJwl7G8aJH4D7VhniC2BJZf bGQg LuekwSRDrZ7lkmety5yqchpv TxClZVVySEd2YEg3LTPldKki DyUvVV33LMP8SJOfelEwB9Me LWFs bPutZaR8b5S6Cp9GE4TSEqhw D5RRZXECWQolnMB+JO13ej90 O9HzGhxyYrn1DBDaLHL5gEL4 aD0n UDVeEXlrz1K5uXC4B5CswvXq aw2gy2suXNLwFDmaG62rcQTe j3F7GGCwtFG4SKXfzJrrVwVo aG93 Oyc+YOCvhVtsx6RgUinyc0iy p3fufOh5EovlHEZbvaNwyFxy IIP6u1NeZs6gHHZglJI1qRW6 aD0i QdZvOiW3AXpuR010HqPbrVJs HnuyK07jP6VgbFT+PHRyPjx0 LJOdbXjjPF1eA4PjCYVjqfeq bGVm yLngDY2bARUsgxhuWWNkbH1l TJDhU8i7NeNvMpS4IMygU1Fo XELmnisiPt48vH1tYqOqJuY7 MGlu V3YsgrH7PSByxDLmNPgxVZY1 B49lj3U7CGNzMLMeEDH7eSB8 vT5ctGyizwlnmWQfnWwmbqJh dGlj HJkfOBmbQ034IAWqlJijGnNm ZGluZyBEYXRlOiAgMDEvMDIv MjAyNDwvdGQ+PBQvVCM2aKgh PSAn vHHdNAdnVn3nkMbebGvbEK2k BNEzouynYMXrwC2dHVWzqWBu cIlnBV3tBGQczbvwi929MaMh MHB0 PNUksWRdI8MvpV6oDeLhETWc OBKnQ5ZxrIVqBNhaR178FDyh CoK2QLYezeEgF1ZdBQSdcPyo OiB0 i7O5Oe3Ev3NujlvaS2AwqTNw CyPmKlsnEMq6C5BwBibyzSW+ AY81OWIhDA57ZFf4CKA2bYvy PSdi YPXhQ2AkkI3eUiZkZPAnRCJq Oyc+PHRhYmxlIHdpZHRoPScx GEXkQyUmjZprOC4lKn5nIUPa LWNv xKypfMQaPcUch4pzTBVuGEto AL1ndUmkA2YisIZ7SCGim4y6 Kh28N52wW7TbgEY+PGNvbCB3 aWR0 pX3jUaWnTlM9HKqzX036YtHt mWPuCeejk0uxs0gbgFl8VhW1 RNKgcvXtiUpjOZS4d8KzPb87 Y29s IHdpZHRoPSIxNSUiIHZhbGln jh7kkH7qUv7+IOWgkZY5jYH3 hV5iLyOmScC8BJobO509FlMt cCIv Xwrwz8hkm3nxlSh6FlGuUJZz lcPicTreHQP8p4AvQa71F0Sc kCrrm8XqSpn4kh15lYAtg6G9 bGU9 E9YiJBVstrvueJHhaQieGB3q VUMeaakcCVGpvY9iKMQoI8t1 XiQfVaS0WNfdU5MmoyI2GTYr bGQg OYJnqFINoH6nujxie2ynorun BzBjYOVyZSc7RYs0LOJhaDbo IoZsZON5YlN0JYT3tCZxdV5z bGln qwwhrP0jXpt+AYM9kMUhoPZC TV1hZihujHY+TKXsOED2bWze QYrhCGJvfV0jWVPmQ5n3JjBl LjA1 GEzrY7DpnyJ2TXGgmLWjXWSt cDMTfJ5zwkpug4kedlxqTdXe ZVIcEKo4DMc2NGFvcUqbEsOh ZWZ0 TrP5DZP1gXJabV3bkCqxuyun wA3iZkc+AkjqpCypWXX5XLu4 L0WfZjy0UJMwjFllIM9kwBQs ZGlu Ij0rtIleqLzrBQ8oVTLxymfq o991MtEsg6auKBOstMNrLJew GHH5Y31uq4I5ZZJhJFXpFFP8 dGV4 rU2fqJtqshcioMUwaIhgwoDt kNtiPIdpURrgW636HCTbmCcw QbLjQGt8V9LaBys1BYTsaIbw ZT0n rIMjBFcsEe6ioNofzGnpND4e XKTcxotia847GpKrr3bhESOh lLOjDCknWPS9H14at8G8QGHh MDAw JSW2wFY1kY8cgTmqmogouQKs qKjhpyMtdZfeTPaxUYlkW465 EAAtlBtgHwWokOs8R4WmXgp2 ZCBz gHgeJW2naCGmYWkcIo2keQqe hVwtWU7wFGTvhtpel644WhNe i5dhKKCweTHlRLqnYVX6Z61z b3I6 SGHqQDFxKLR2sAU3oI6vmDys bjogbGVmdDsgdmVydGljYWwt DNpmR262DTZurEqyBoUwjRjo bnQg OAsaHRh6Z4PiSebyhRJ+PC90 CDIiOG00dCYwqHQbm0ukvDq6 RyDaZVIkGPT7fMgdQSele5Iq ZXIt Q86dbTNed9R9JJUcrDzhwURr JuDwlIV2pI8hKJzxngawd0lp flxgFgthc6nfzv30aK98C44h IHdp STOdLOHkXVNpHWDarUcsds7u vW3qLb6+PUTflBU8rYT7oU9e OWXtKlQ2JDppN379ZuSesWBa Pjxj x2wqs5ksbLk4XtU6KHPexpZb aCowBMZ6g5HyNe12S06iQSwv TXIiSGMfUSLlBONsoOwwxc8t dG9w Ii8+TDAfmNI8gGU6mV1iVdZb EoL5EUxuT292YfSfqXRsTrpz G79mT2DqaCL+IHLoOal3QWJv dHls PM7xpIChXWjcBq5nCPT5QqJl VnVlOYwdA8QwPNSnybjoljkj rOP9XZIwXBKxnF57Id3acMpz MTBw bAQUeF8xxgrct1vufnwqQmFd YJNrQLl7VVb9NXIdsUxzWtBz MSF8LiX0IXB3nTSgfJ8tlWpq bjog dF1sP4VdGAPbtvgoBy20uF6i OzEfOaG0TCctPwr+H4nMR53C UWHZD9oKLEl1N1OqOme5VXWc dHls NT4gkXVtDQxxAa2moTpfsOrd RD7pHMYrqxkgSYXspF8tXMRh nQXjnDfjCK4mJQEhyhmmd603 OiAx GGM5PAXaiESwH8PwqC7yOgWi EJWoKAEaE8AtuBLvQVflB541 GJsjKoD8WJKgsfPuO4ZcYKAn aWdu LuQ7q7Q6Qf9yCK0kJA7fPUF6 VV87AQ20vUIwf8T3kLD4F5Lh OEOlcaehihejrJE6CFZrHEYt aW47 uHNuXKpiIm0mv4U9r933RXRd WECeqU56Nw7cmUhyVWAraWVE aE7kzbxmf1wnrxolTgFxYSHb MDt0 HGq2ZPSjaXvlRzNfJUP4KpW8 AAN3pIVluB8twAxfsdqtvM2d Oyc+PvygXAOhgaB4M8QfBxu6 ZCBz wHdzTY2iuZCkXCdfMo3dyMuy bBpwAG3oXJKomhctBOZuiD3a DIVfcFMlcWvdMA6lSDCxfypy b250 GnKsBMO1SWQrbWIbF2WtoN6w QrPqDIUpNWLwT6OeeIDwHMdt S488DNekRxC5THHcfsDkC4Tx LWFs uGqyIsT8w4R1Si8ZMFxMJQ27 UL14jMPmn0A2cRF4W2UdEBLo nkopykvkuEF9ILBwWBWayN50 cGFk ATebVf2ad1U6k831BWEjVJTe xR80Vk6rlUplCNFafFQJeG6g bhhhr6sqnzehVzEdIMXlCPo3 ZXh0 DKUlhEtvJlBoKTM3MvQ4JCI1 sOZgkH0atCdhrzexqA6mDpv+ S7P5V5QjKcoxuUG+UT86WWNp ZT48 nEAuhSSsz6wlsSd3UqSkHEGi DDV7vXytMTnln3LuZQQcR63h xFAct9A7KETxjTtvmECgWuUf bXB0 yA4qGLvvssrdq0mvznwiZpea s3jtrn21nB10T25nUGnuPSIe IGNrCQRzECFljUcjxb4cdR9w Ii8+ GXPytHB6kQM1eS2gMkGfFmT4 ZNhdS070KpTmdQFaYtkda3lt z2zqdVu8RfAeEMHdhyOlsLxz PSJ0 y9BgKi95S94jGEzhFBNqDDCm RCItWECzqLqfad6ojS3cNc2+ TP6ec3vtmq83kN19aAT+PHRk IHN0 wFjdBVgeNYOuhI1eZTnjWhU6 UNAgWyVkfW11zQIuGBbxPn5n rHdedPzoVQ5hJWXpbwvwa818 OiBi a4swJGMbwDEaEWgdZWK7I87k o8S7OOPgNCKbYRQ0oNR9nX4r bGlnbjogbGVmdDsgdmVydGlj YWwt VLaeI715GDZecUbaYcHpxVAy J4qsrkZVVX6zHxkslBX+PHRk WHC5xMedSDdpJXTwfF0pZSHa Z2h0 TuXnBsK6HHtiJ7FtdqV5MUFz jOTjGATgeWROeW7uyqnrg5zv ddnpLzPpNTPnNWq1PEg5TGAw aWdu XkFuRKS4YxL2APT5dIQmnP5r iZawmekldN7eEpo+RklOOjwv dGQ+LVYeRMX3zBwsKPikOQNo aW5n KCNvA4s2CcFcQmW9VOcoV9Pp kkV3WPLzoNZzKOSonVSLzL3z jwotr1dbelsiNwKcXYNfHOo4 ZXh0 EDIpsOdbIhDpSCR8MwP0PQU9 gASteX5uyEqqiumdyW8fLhe+ TVJOOjwvdGQ+PTIaUOE3zAxq PSdw GWDzoF0tGRHfS2v2BtSfQmQ3 HUqhZ3PentW3FXQtqRAvIDWg tNQEjQ0rzvlrv7esplhiGmGy MDAw UPe5GBn2NIWifHgdBlZjOMH5 WbS4ZFT4sJJbpK0rmUntdfip sQ9sFkr+BYP3EKY2CY96EO90 L3Ry PjwvdGFibGU+PHRhYmxlIHdp LOMdUWogYCPsOrWmiQdkRV7a My3sNDQuOPMrwXyjgTIhIdEx b2xs YXB (more content not included)... [facility] RAD - MISCon 10-03-2023 RAD - MISC [id number]#[id number] F [facility] Provider Orderson 10-02-2023 Provider Orders [id number]#1.00OTG TIFF [facility] XR Abdomen Single View (KUB) on [...] Delonte Membreno MD 10/03/23 11:00 a Technologist: AIHSA [facility] Coding Summaryon 09-13-2023 Coding Summary HTMLBase 64 FdhftyjtYGt6sCx+PGhlYWQ+ AF5HSUYpW46raCFluR5nP0VA TElOSywgQVBQTElOSyIgbmFt JF7ptXIaTDYh IC8+NK5uFUQfErfyfZQqw3V3 kSZ0S95zrg2lTEawtCL0AKXu XmMayarox9bwwGb7WQrzDmyg OyBt PZUbmJ64IMB1qK29Ux15iXJt fZEcd5fnbSz1LhSkUDSwXVE5 vExzWEajx5AqYRMhI26nxGCk c2U6 IUNerXoqwPAjBxRujXB9rW4j RJexfoxwq4iwpjoiMcn8bf86 kCVzc1R3vZV5P4XleaZ1RZOx bGQg NiimuKKKdQ1pufuhl1xwmocf XaChEOVpGPf4XBt6RULrnCtk NzBsYW39DRI9UQRpemXnO5Wk LWFs xFhvJrP4x6D5Ig8II9IGJguw R0AHYXTYMHnioZH+HT37ms26 V3IpNnfnTcd5KPRjDTH5mZC3 aD0n YICaOBful6T0sUV5F2TrliMw pq8po5xbBBRwZLgnS79mlBGq h4H7HQLpyWV9EYDvyTkkUnDd aG93 Oyc+XZCysYmks4CcHgazt4pd j6ceiNs9KnriTXJdgvXsmDdi WPT3o7UrWl0bAFHqcXP0sSG3 aD0i PaXsVmG7AOtgG066XxDbxQGy OhuzA68sH0AiuQX+PHRyPjx0 WEDktXatTR8qW9AqYQLyyeul bGVm zAqaCQ7uUEQuhuxuHPSgjF3i DPOqU9m2XyGpStN3HBroR4Ad MBVvymujBi98yF1jWhFjLmM6 MGlu Y1JtljP6JAXqhFHvSRxnRLG4 K31od8K9YKLiZYKmBPW6cEP4 dD0tpArtquqljFZueEwaucMx dGlj XJxiBDoeX783TETviIrxXqMf ZGluZyBEYXRlOiAgMTIvMDgv MjAyMzwvdGQ+UKMsPVB6tGpr PSAn qROqYVwiFl5ydWopyKnuCX8v YQVljrblUBEviX0rIXShuUEz fVrqPD7eTOAmrdand336LjWx MHB0 INYfcPHgR0CywL1iAvWhNIMu LTIiN4EndIWjBBdiQ808EUol LiL6ZJCyxgOaL7RjLWEozIsp OiB0 y0C6Nz1Pi2OqtmpxH3UoeIEv EvJaEkrzKRy3U8SvKwwzqMZ+ RG37BEUrBD93JUf5GNH5vWgn PSdi QWCvF4DavN0nZyAwBQBpULPn Oyc+PHRhYmxlIHdpZHRoPScx GEBlJzPihOnpTZ1eZw6hJFLd LWNv tKzwuDMvOcMfl8kjWZKjUMak KU0sbYafW2FdiMG4TIJsq8s8 Zp21Y62hD5XkcQI+PGNvbCB3 aWR0 aR6yBiDlXeL5RSowD384CiZv dVDmBjtee9mkz3urgRo3WhY8 ZEIehdFguRacBMP6p8WpPs38 Y29s IHdpZHRoPSIxNSUiIHZhbGln ot8suD3mSl6+JGFnkMR3cAP0 wQ2hQtOvTkF8FLapW817SvZs cCIv Wvlcf0qee0cfuZx6PuDfMSLz wcEnzIqnABV8y8QpXg88S8Cv tVlff7KwFsc4xd35qUAxf0E2 bGU9 E5AmOWUwwxvwjKWjsVurDD9v HOQkqhsuBDXyrN6hPMLiD7m7 RyJwZzJ5RFpzC6DhthB1JFDg bGQg CYDabQYCgS8kvqtiu2ypvgvr NlEuKZGxTNm6OSz4NLRrhEpu JkIdDJR0GxS1UZD4aTAegU0o bGln znlhvV8xKih+HKI5yXRmyUJW VQ8eGviqnWJ+PFAgYMJ9nSzu PKncRNRniF6wZBQhC3v5GjHi LjA1 FDpgJ1AtakQ2QBKlnRYjKXDv aMCKgY3lbfhxc7vtogrkVbUu TNYdSPg9QAl9FLUwoHnmSiBt ZWZ0 SoA1WNG5jPEnvT5xyGimawbu aL9mKsz+SxzczNytEGL1CPd2 V0MwAjh2DZAtfOweHG4olAZb ZGlu Ii0gzGzwyNidWK3bDAPwjnxo t328LuLgi7lbWYOljFXbWWsy SST8F72xj0B9RWIuXIAaBKZ6 dGV4 oW0huRherckdpCRspPohhdIf jSepVIyeINxiF863TSAswRhf RwRwCUp5I4NyTil8GESzxOxp ZT0n oOLhAZyaJc7xqCsfaEpdWO4n AOOfenglw435RqVen5btMCCh lEWeEXxpBPH3O79bw4J3KSRz MDAw AYJ4qPY4jW3xoMocrukyxNLa wOylfjLonWouZKiaUZvdK653 PVObzDbiAmGiaIs7H3RtZuc1 ZCBz bGznON3sbHCsNJchRl3guRci aHcfEK5gAATtfrsur043WoCd x0qeODMbvSHbMZrkAMA0D96v b3I6 REOzVHAfYHA6dMI3dV1hnPhe bjogbGVmdDsgdmVydGljYWwt OOvdG175HEBxyAjdPfVhrJjk bnQg KWlbLJq6D6PxTqtsuQU+PC90 FBZeCH28kQFyuIWlj8fzpRg0 FsCbPJSxRZH7rKgaJSsjg8Qa ZXIt I84eoEVgw5V3LURhqKjdfYFh GuHnrGR9qG3bHFqkipluw8ci mfauYuqct4bigb92bN97E43e IHdp GJByBTGnJIFxZRXjeBpimf3t pG3vNz0+WEVyoNU7gBA8fH6d HUGqOdK0GXpxP552QjZwjXCl Pjxj t0slr1aedZg6PnL4SPXukrLo aAbdNKI2g8JpEt54H77aMUkl SSCwHCQnYTRrHWQcbGbnru0o dG9w Ii8+MMOfyKC1iDR8pA0gKqTs XuE1LAlvW308AfCviGVjCdcz D69fL6JouZP+WHXhDoh7TLKw dHls IM9lvPFhNPgoOw2hWLL6UmLu MxMwOLsuL4QhSHUbyzgjjujd xCM4RBBdUQMsvK00Jt7meMqa MTBw qWAPhN5hztqxi9eczdwpNiPj HSSjAVj3PHu5RNGcdByzNlIm ZQK9TyK6GEE4nUAmvF1uvIev bjog pM6xQ9EkUJMvdahfVo65xX2k YlJgLvF7XKzmCxb+G5dQQ66A CSEXC3gFBOn8G0EjFns5JBXr dHls DN5ftOSiKShwFd7hnGqtkOte PH5kVEForiyxMIObfZ5hQKPw zERatRemWO6bNILadqyam821 OiAx YLU9QLVapTPnT3NhoU0xXzCn SILmPCYhX9AhdAYdNQrvR396 BAwwToB7UPWzjlBfY2ZzOVOi aWdu WmU9l7T8Nn8gTY4vZC9kSUG6 LB54AZ51fIVpt9M0dSE9P7Dm ASCmxdatpwokpSX0DRWyNOOl aW47 lPGjGOsaMb9rc5Q5e044LVFm AZZqyQ00Pf2tbOwbSEZttORY xZ9puyyss0gaikbnDsAjDKJw MDt0 FOf5IZLnpSapLsCrPFF1YeO2 UEQ9gYVeqI0dbSgtvplyrZ5f Oyc+MrktQWYwkyI8L9DsBzs1 ZCBz mAokMG2uuIYeKOtnMo5qfZkl dVcsPI7aUFWudheySYErkQ0z XAExbFLvyMynQF5aKBRbjqol b250 IgVqNVT1GIFvwAQhD1NdaJ1q KsItTKPxTREiF5HhaTSqZGag Z527PMlqFiD2JCAgmnGcN5On LWFs yHabYuU7q8A8We0ASNcSOC35 KR80lZVbi7S9eNJ3G3MaTGPr vktgovgvaPV9PCDyMSBbuF38 cGFk HXlpPe9sh6U8i401HJSkRKMx jY35Qn3pfAliDHFqjOGXtD3n sbokf1mofjqcToEoFECeSEe4 ZXh0 DLQjoTgsNsKxVFL1DnB1HFY5 zWBowN4mxDxuvsmowI1mCpg+ OW5gqfkfuvY9FH08TE69D2Sp Pjwv dGFibGU+PHRhYmxlIHdpZHRo RQxqAYYeAsDtkSzvXC0vFa9d XAOoNUZrkIdiyJQyEvPpi2rh YXBz JBncXV0hpAarK0YwoAE1YBTa d7z1Ue81T60bZ4BbhIM+PGNv kRB0bVF3tD5aZiSwXaP9DZtu Z249 SfPikYBnGcksf0jvv9tilVt5 AsIsZWMnexBcyTdfMWK9g7Nx Av98F83fVFqzPWTnDOWoALEd IHZh mIlpba1oxZ1sJi3+PGNvbCB3 uXJ9gH6iNjLeBkI6JWjkE417 DvVafSWyZmzzO99zV8SqmBY+ PHRy Qsf8QZHguFtjXT2isAGfAWbf Ga1lUTW0FjYgMbQrDEjaP3Wy BEMffktmkqxagTT5KKHiPBGe aW47 Ft0xuEvdKq3dMQTsLHJ9PBDs xRJcN1SjkS2fDdGpWPXfXOEj O2WhaLGlDDecU686DIioWiL9 IHZl kvPhI8PxJRHetRbtEgZ8u0K0 Nh1IrYobiCMrXC8sCqJjKEh1 Y2NzMbg6OITwkPjcLY5jkHWz ZGlu Ea3jmNvkbBcoCJ3aVHKemiey y511JtTfh8slCBGkmXGeZLtq KSX9X65oz0K1GECgBRQaDYS6 dGV4 nN5ioEvquouhnKMhuMhgsbBe jLqcXUdeUXbkF124APWhkJwq PiRMFgh1I0UzIvy7PRNypIzj ZT0n xTGsEGkkWh5mkKcqyXeaFO2v IMDnomfqp083FaLvm7xhMKPf nYQlOEbpKUA5S61py4S3RKVe MDAw FNH7vTW0lA9ynNahkvcxqQFg rLrsyeUubDkpZImtBLvyZ657 XMBwnXuzGb0KCzt2N0EjKhd0 ZCBz iSlyBK3lqFQyCJgsUr8cwKdd mPbgRG3gXONgrmyrt589HbQe g1hbUOJjoJCiJAojONU8K02j b3I6 HAXqOMPqWYJ0jAF9rB5vwTtj bjogbGVmdDsgdmVydGljYWwt SKxjA799GDUlbZukZlMoyICh Ojwv dGQ+DK14zq81H0HeKugzPiv0 IDWrSJW8kPT3tT7zVJIvJIyv e2Q2hET2O1HpgrQzvt0ng4ds YXBz ZTo (more content not included)... [facility] Electronic Messagingon 09-08 Electronic Messaging --- --- --- --- --- --- --- --- --- From: Damon ([email or web address]), Directtest To: DANIELE PERRY Sent: 09/08/23 04:57:15 AM EST Subject: Discharge Summary Ready to View A summary regarding your recent visit is available in the Documents section of your Health Record. [facility] ED Clinical Summaryon 2022 ED Clinical Summary [facility] - Emergency Department [address] [place] [address] ED Clinical Summary PERSON INFORMATION Name: DANIELE PERRY Age: 78 Years Sex: MALE : 1945 MRN: Acct#: Visit Reason: Dental pain; Facial pain; L SIDE FACIAL PAIN Arrival: 09/07/2023 03:59:37 Discharge: 09/07/2023 04:44:00 LOS: 000 00:45 Check In: 09/07/2023 03:59:37 Checkout:09/07/2023 04:44:00 Address: [address] [place] [address] PCP: Amelia Batista GENERAL EXPEDITOR PROVIDER INFORMATION Provider Role Assigned Unassigned Mohan Hogan DO ED Provider 09/07/2023 04:03:15 Chio Zhou CAN CLOSING MACHINE OPERATOR Nurse 09/07/2023 04:16:20 VITALS INFORMATION Vital Sign [...] PATIENT EDUCATION INFORMATION Instructions: Dental Caries, Adult, Bgmg-ar-Vwkm Follow-Up: With: Address: When: Follow up with [...] ER PHYSICIAN< Carlos Enrique Huitron With: Address: Irene: Amelia Batista [address] [place] [address] [phone] Business (1) Within 3 to 5 days DIAGNOSIS: Pain due to dental caries Patient Understands: Yes - Patient/family/caregiver verbalizes understanding of instructions given Comment: [facility] ED Note - Physicianon 2022 ED [...] present, hypopharynx is well without any PPA BILINGUAL MANAGER or RPA. His heart rate and rhythm is regular murmur lungs are clear without expiratory wheeze or rales Chest motion his face is symmetric speech precise hand grasps are normal pupils are equal round reactive 3 mm, this patient has a dental problem.. Medical Decision Making Orders Impression and Plan Diagnosis Pain due to dental caries (YEF62-DC K02.9, Discharge, Medical) No 19, 18, 17 Plan Condition: Unchanged. Disposition: Discharged: time 09/07/2023 04:24:00. Patient was given the following educational materials: Dental Caries, Adult, Clqo-nt-Ngae. Follow up with: Amelia Batista Within 3 [...] 09/07/2023 07:33 EST] Mohan Hogan DO Normal [facility] ED Patient Summaryon 023 ED Patient Summary [facility] - Emergency Department [address] [place] [address] PATIENT DISCHARGE INSTRUCTIONS Patient Information Name: DANIELE PERRY Age: 78 Years Date of : 1945 Reason For Visit: Dental pain; Facial pain; L SIDE FACIAL PAIN Arrival Time: 09/07/2023 03:59:37 Primary Care Physician: Amelia Batista GENERAL EXPEDITOR Attending Physician: Mohan Hogan DO Comment: Visit Diagnosis: Diagnoses This Visit Dental pain ([id number] -[id number]) Facial pain ([id number] -[id number]) Pain due to dental caries (K02.9) The Pharmacy at [facility] is open Saturday through Saturday from [...] alcohol and/or drug addiction problems; contact the [facility] 29/04 Crisis Hotline -Text 0QKCG zh [phone]. If you received any narcotics, sedation, or [...] Enrique Huitron With: Address: When: Amelia Batista [address] [place], [place] [phone] Business (1) Within 3 to 5 days Medication Information: The exam and treatment you received today in the [facility] Emergency Department were for an urgent problem and are not intended as complete care. It is important for you to follow up with a doctor, nurse practitioner, or physician?s orthopaedic physician assistant for ongoing care. If your symptoms [...] so we can reach you if necessary. [facility] Emergency Department has provided you with a complete list of medications post discharge. Please inform your huc ob/provider of your visit and for further instruction on these medications. Any specific questions regarding your chronic medications and dosages should be discussed with your primary care physician(s) and/or pharmacist. New Medications [id number], [address], [place] [id number], [phone] acetaminophen-oxycodone (acetaminophen-oxycodone 325 mg-5 mg oral tablet) [...] oral tablet) 1 (more content not included)... [facility] Coding Summaryon 07-03-2023 Coding Summary HTMLBase 64 ArnyaghqZCz8wTz+PGhlYWQ+ DF3IUVNlM80kwFGhzK6iR5UN TElOSywgQVBQTElOSyIgbmFt JG9xgOQpVEGp IC8+OP6iGATjSursqBDll9Q8 eUK6Y29rfm7wBSvvtDW2MFNg UjEyahtfj8zocDs1QLxdRqbu OyBt JVWcfE19GNK6mV64Ls71uFJk iPThi7fvbHr8LjBmVDWsQEC2 tNbvMCqrf1JiSIYmI27kePHa c2U6 ALYbqDkilKZxRxObyHC9dA3u LRbogrygt3foxetdHsi2cd68 lTBmp4K4wQJ1Z8OvvfC5ZIHt bGQg DhsplOQKgN2lunsmy4lntbmn ChTvRLWnCKg1FTx4WCHnaRho OyLgNH77SUD4YSPpavLfY6Fe LWFs oAsgMmG8l4A1Bl3MR3LXVqwh Y9GPFQCAFOqegZY+AM29sy41 Y5UdNjdzFds2MRDiCOS4cJR3 aD0n IVBcHPlkv6U2sHG5X9RqmcWx vl8lz4hzZXNtGPliA28bkLQv o0E3JBCfhCP5OSLqxYixTaEq aG93 Oyc+CQKvpTqkm0UrXolre4xx a7qieVw4RyhlWGZgiyKzmLxy YUA5j7CwVh9lUTAecVF1zBA0 aD0i VwWbYbI7EGifI546CgKfgCUf YdvvV66hL2RynIQ+PHRyPjx0 UMSqiYwrYU7iK1WmNBIzjech bGVm ePmcBL7vLNSgwoiiEARdjK1c ABFjX6k6WmGkNhM8JCexV1Dd XDHhzbajWt15yV6pDfZoSxS3 MGlu O2NnbeI0UQXygWGyMOueAEL6 R23wo9F1NXWnNNGbHPS8uZG3 rY9rsAhreshgbPJefRwaliLx dGlj VLkgTIozV623JTTyaZztRcMx ZGluZyBEYXRlOiAgMDkvMjcv MjAyMzwvdGQ+HGCjHHS6xKbl PSAn yKRiRRxbVo9meTswrAujXV9z KVKdidgxTDAdaM8uPTLpnPFx aZdiTT6hBFFszfest500NnDq MHB0 EBGuxMAmK4HyhM3aHcPyFPJa ZRPpP8NrbJDpMXwwE150HPpb SbO3MJExzjPnB3QuYQVxmVvm OiB0 y1E4Jz6Ab1AtlmfpT5HgaBAi DkHqQmxdQIi9K7GeLsocdKE+ PX39KXHcLG15PTd5FAZ5wRmf PSdi UNRtE9QkfX2qLkFiUHIaRVJm Oyc+PHRhYmxlIHdpZHRoPScx IRPwSiFwhApxCY8cOx2nLLEf LWNv xRuijDKzHvLxq6kgSYXbTNae AS6fzAeuF4PbcQQ0RXQec2c3 Vg19P92xZ1SflYS+PGNvbCB3 aWR0 fP8aZfMtBlG2XAbfG421BxKv pUIkAcwhw6vdc4tsjCt4MbF5 HHMtsaTutOfdPSD2m2IvRd05 Y29s IHdpZHRoPSIxNSUiIHZhbGln yj1ynP3oBa0+AURrnKJ0eZS3 aO7bCiSvOzG5ZWkaJ038SaLq cCIv Pflyp4dpv5tksVx4ZdXxVCJf quNueLzjBFQ6v1StVo41C5Vu hWshs3RyOpf9hs62rZOzr3R9 bGU9 J5ZqGAIoqvydaJNpeQqvEN5m KZWcwvwnDESqoX3pSIKgQ9n2 RgSfAmU1NEnjO7XkfnT2KTMs bGQg XNTbxZVGcL2ajdydx5ulidck ZnHtBZBxGAq2IMs2QJMunVpo LfKuWYH9UlZ8ASF5pTSpoK3h bGln pqqwmM1wPlp+FYB1fJBxqXWR MO3mKotrzWP+CTIxBLE2zYrt JPqrUAGxmZ3hPDWbH4i4GqZc LjA1 NOspY1RelaB0JPPhkLCgECWi hCAMkX1lkceob3dlugwxIqIu QKYpSYo2PJs1EBQhcExdBhUd ZWZ0 MzL8UGS1xQZtbV8byVbdrcgx tR4iOot+RrstgHkbFME5RKj8 B6YiUpo6FSQqdIkfUR2ieBXc ZGlu By8lhDiwvVxuZW2wRFGtaoxe o745NeOmk8tfQTTkiEScUSyf VZP2F06cr7W0ZUFpSZYoUND4 dGV4 uY0rbLzoogcilWOzsPnxagDb uQysESmpYPovB651BMZkmUrn UaCuFTw5N2AoVhq2BCEqxRno ZT0n pTLxBCtgXm9ueKnijUqlFT7i MHKepdild374RyQrm4fdUSAm kOMfDYjxFSE4P58xf1V7LBJd MDAw SFR0gWA0bY0ggDpgoiayjIIy wSvpldEnyFykHGzzJCcoS500 XGKceVqpAeJdiPe2S8ZnPhw8 ZCBz mBulVQ1ytSAtJQasBi6jnGbr oShnUC6fFDLhcucpg804NoJu i2nlAELqyJCaYOsvDYL7X93a b3I6 HKDyZIZvQOH2pCM9mY0fyTgr bjogbGVmdDsgdmVydGljYWwt QKwsN967TRHkfGxaZyMdtNov bnQg OThwXUg2H2VrUcbwjIQ+PC90 UZDjCL36oOJanZIsp5ahpZv6 AbSbHCJiVQA9mZrtGQprw6Yt ZXIt F98brIYwc6H3PQQgsBqcrPSj JgVlpIT8dW4pCIkwomfzh6tw debdYznoq0bmfj31eO44M21l IHdp OMCcMFBwSIJdRTFmdXzpll0y eE8eRy6+HWFszQD4oNR1lZ6h GWFsMqC3HEldG983DzPtsRKl Pjxj i9kiz8kljAu5SqY5AKQvyaFk aWggFQB7u7HgTq70Y41mHBgl HJVbPHWhQIFkYBSykDlirs2x dG9w Ii8+CEKdnSG5fBS7iC6oCfZq VpY1YHldK668JyGjbZHzGdsy I71uC8DpmKH+JCIfZps3VRXw dHls PT7lvXJaKSckJb8sBFC5TdJf BjCyZDanB4PaZCWvczdzfeuv gBA7VVBySGObdP89Pq0miXsu MTBw hFZWqX1ffxtkw5esadybLoJk CIYyDRr9OOm5TFOsrWcmKkIe FKD7ToY5VVG6zKKfeY7faLzw bjog tT0zD5ZkUSYfyckiFw40tK4q WePzGsG7MFyhBbt+N6rVZ63R GWOFD0qSFQi1C4XiZsg1FURo dHls IT5vjKKuVEmaLm4gvYelxKoc LP6iMRBemuoeLLYobO8pMBSd zENzmWmyPO0hIHApzfmdd236 OiAx SLR5QNWalWYhW7JscP3qGlZj HMObHMHpN0GggWMcNUgqU907 HJhsUrA1EGWwdyYwM6KrODBz aWdu OlR3b5A4Na6mDX8sIJ0yZUC8 WD27XE08fZWlr6E7pGG0R6Ti EBRpqvzatskijPK9JBUkUZLe aW47 nWNhOZmlXv6pu0V3n113YVQt WIUokO42Np4fcXcwFEOnzGXF lL6pdudxy2qxiwkbRlIpGZSm MDt0 AKw6WQRxyShqTgViGJP8WqC2 GOP3jWMavZ6nyYtvsicpoR4g Oyc+KchaFQJmriT3W7KtJzz7 ZCBz fCqlWG4amGLqUZdkZn8muCxt jIznSA1wFXLmatzuLWDbuV6m QSTkkALitIiiDT2gRXCuyyvj b250 RkGcAQE5ARUeuGLxJ9HhiY3d UtNtUWYuSDZwX1SfnGTnWLep C975DKkyLuJ7SYJtpoFqQ8Np LWFs hWzeCgT0p5C1Dy1ZTNxFSN78 UT70gSCvs4T4uHX4C8LiQSDe klmeehqgoTJ0OKKdIJEamN47 cGFk WUwsJq8zg5A3y492KTZcKCAa rS39Dh8wmYmnQQYwvHMOtF2h finxd1sefquxSrFbBYBbYKw1 ZXh0 FNCdoOrgYmXtGUL4HxF2CMF2 kSDwlG5tlOtqijvhyO4eIio+ L9H1V8IeRycuiKC+NM56ODLs ZT48 wHQwyCDsh6laaTx8FvIySUHy TZT6lGksVHnhd8XsIAWsY80w jOCcd5X1UNGquGzpyEIpDaBp bXB0 eO9kEYvhatynq7vwyblvRfeg f9isdf37mE12N30bQUtpJFMu SPVvFLTzVJGnzIiyiw4agA8e Ii8+ RNFcpFR9bCT0yV5hBjZmUhK5 VAthD566PuTqaBXxEbyun8nc l0mxzAz1DmNvPHHmdeDeyBzr PSJ0 x3DpWf24S11qUSqjCEHwFYXk OCRjNPEfrUjspl9yvI9zCa1+ HW4bq1ywbt65mL20kGR+PHRk IHN0 xShqRSyeSNIleC3bJUjpDkM3 GVPcJyKdsI81qBCzXLxeId2b qAszrWvpTO7bZUQnapukp491 OiBi o9vvPLJjmJQeYHziWFD0V41a u6H1EEDsMBYfHMD5lFL1rD8k bGlnbjogbGVmdDsgdmVydGlj YWwt QJyfC879VAErsQxeDeSebBMy I6tcpfQJXH5qWluxfWV+PHRk PCK7yXnnJWkmCUJchX0aDMDy Z2h0 DfJhCtH4OIbqC3RlhlB3HECv bDMtAZRtqSZLsV6iprxnr8fn zrnwTeIiQMPgCNv7VLs7TJRx aWdu AnZiBJL5VrD0TWZ0yDDpwA0k cSfmeqbawW8yDfk+RklOOjwv dGQ+PGYxQLP5fBkcWYxjCAPj aW5n OFDqW2x9JuQhLdR6DNfhN6Mf cfT2JCLwcGRgNTMrsPNHgU7k jvvmj8zljwbaOjJmVSWyYCz9 ZXh0 DWLbzNzlMmEfVDO2UjZ5ZMU4 tPCmgQ1zjMnjphellU8oPfg+ TVJOOjwvdGQ+UMGeYQG6vSyl PSdw OORsuM9eGNDeU1w3FsQtThY4 MRtfD0OunsH6HIOebLKuXQRm cKVObB4titexv0zwlbsxArUj MDAw UAd3EVf3HJAzcAkjOrViWGO7 TnE9DBQ5wBTorG9doEqmlrrb uR5uJjr+YZU1EUN0PV13TY94 L3Ry PjwvdGFibGU+PHRhYmxlIHdp SHFhSHfkYDOxEnNocKwrPB0r Dx4jFHCmQOQwyZtmmXQqNjOh b2xs YXB (more content not included)... [facility] Coding Summary HTMLBase 64 SixipiegLDi6gQb+PGhlYWQ+ KB6GIUFhV02tlCNuyD8cG3OX TElOSywgQVBQTElOSyIgbmFt HI5coKTeAOOj IC8+KL4fWBNxAayevOAxc5R9 aJH8S03bxp6qIEowuSH1AHLk IeYcpiqao5mohGf9WHymYeyf OyBt EZAkzZ41ZRG9iA26Jm54gCSg cGVld9jnnUh6JhBsYGCrPEB6 lIpxSTvxl8LgSPPnY67lmYQo c2U6 OGJohPsdaOWhTuRgbHE0lC6e PIlvrlfyk7kploxyOqv5uq54 oCSmi3Q6wIL3C6WoioA4ZMYp bGQg OqrnqAHRgQ1ejtwnq0nvzchc YaZkZRNxNOs9IQx6JXLxePix EpKpAQ12BZO9PGKptuBkT7Mw LWFs eEzmFtC0a8G6Yt8VJ5DZZzib V0XZGIMDBHvxyEM+ZP18ts23 S4KxGzyxSph2PLZmOOY5lRY7 aD0n RXWkCTkkm2Q6gAX1G6XjzcMy ra6mp3qyBIYbYXdpY26wzPDo s2N8FHSybXO5EKYroPjyXrGd aG93 Oyc+BBWpmWtqv2AuGtiie5if v1iajQt3UxghCUBqxiQgdKmq YKC0p0EfMp7bJDUoyRT0zBS6 aD0i FsNiRrM1GUwiY851YdLsqSEk VbmrR44rI5NulBC+PHRyPjx0 ZFIknYszTF5qB8FcFBBqrxtk bGVm qNumTG7fVNZsqbjcPTBmdF7m YBOcI3k4MzWuJuQ6OTncU4Zq JIQsjabfSp57zG8qRgObZrF3 MGlu K1ExwnC1DAFknIOdZKcyWOW6 H55yh7B6JFGyGIFkVAA6sHE8 yY7ncNhemfcsoBTvtPqrrzPx dGlj SXaoXVvmS114IMVseWcrKmIy ZGluZyBEYXRlOiAgMDkvMjcv MjAyMzwvdGQ+HXRxNPN9gRle PSAn dOKrOUitYt5mdFbpcKryON2d TXRutwwiYMKasI8dCDOjfPLl bXduDD2fJOHhggfhw864TbFq MHB0 XEUqdZOyW1HvbS6bFrBjFWAe WHJcJ1PolXEkQRslA787XIvy RmG0PONdomAjV5ToXLNntMyd OiB0 p9I6Tr5Zp0AlnxtmE5HpwRDp NbLdBkjhLXv1W5XiJsypvMG+ EC38CLQmXG63IPx8CKF6mLtf PSdi QDGlY5EuoU6sIoRzQMVcJHAg Oyc+PHRhYmxlIHdpZHRoPScx FGGqPzKbnHkeRU7dSd6uUGXg LWNv wAqshAQmYdBjk2uqRGDiCIbh RO8fyNmuP5YihOP2JAGmn7b8 Bm67G23tL0RkzVC+PGNvbCB3 aWR0 wS5mNoQsZdF2QOeuW165QoUz kHFhDounz1hpt0gwzZl1YuN3 LRDwfxIkcPnhHIC0d2IyZd82 Y29s IHdpZHRoPSIxNSUiIHZhbGln lw7rrM3nVe0+OAGqvJL9hEZ3 kC3rRxXzNtR8BYpqB494NuJo cCIv Undhw2btz7ydpZk9CnWwHNEc asKinMohVFP6j2HqZj14C0Xa gBlme4SaGmw6eg32eRZno5Q8 bGU9 Z1TnFGVzaaiwmTJhxMarVA2q FCQpvoltQIXwmS9oZLLpM6l1 GyCeUhY6HUjwH5XpteP1ZKVi bGQg YWMzrCIStT5slellx6llzqyz SlHwDLUpUWc4KMy2PYFwyJjf JpJsGVY5PvQ4EMQ9bPSonQ7j bGln fjnkyN7xYxv+XHT9oPLphKHV KW6qHlphaLG+FUNfYOO8pIos PAncJUBbmY4lXPBeR2p3ZuBr LjA1 NUkqO7KpnsK9RPXmtDDlSJLt iGPCeP9jbvvzn1phcuvtTuHa MHBiPCa6NMh1ROGjhIhcLfIb ZWZ0 MvY3TAE1yRJkhZ9pxXyhrcex aU8dDlo+ZerptSdmPPL1TDc4 K6OkDbi1GHZotUmvKK0xmORy ZGlu Cg7seRulvKxfKD0eNECxwlxk b093MtHer0axDSXzqGPpRIbu LIN4Y45wg5H9YOCpDKDkJTV3 dGV4 nT1nbThjtprrfFXfiTgcvlDh zRpbFAkxUZdcP454DYWvcJsc TaDpSVr2C8ZbJmn7KJCijGku ZT0n tVCkSWevNu8mnNucqNqzEU0y GXZhbszmb079PpDwo0pxZFDp lTVyUVqrIUD9U90co8K9XXYl MDAw UAN5fDI3wH2ftYmygtsfvOCk oCaediRimZrfQTkfGCafV432 BXHygPpsIkAlfEf4U3KuFif2 ZCBz nQqiEC3ivHQoNOhuJs6woZtl wQbkJO5vSDAabpmcw421MlVs t9iaPINoeIHgLMjwMIV7Q65p b3I6 LHCaDMKzMGB8oTG0aY6szZsu bjogbGVmdDsgdmVydGljYWwt HRknX648XMUwoUtlUyJjtAsf bnQg TGjgQAy9S2WmPsnorJP+PC90 CUHcHI03nWIngTGra9cwvVu2 BmSnKURhYZT7sJjxTOwlf9Tu ZXIt D11ceFBzx6V2YDFhyVyckRPr VwKmrPV9lV0lDSdmaqbxp0lc vphoYoykh9vadb24mX46B46a IHdp YBSjPGInCKDwTOZshAisww7l pW5tUo6+YXCjiAR2wUM2fH7l UIEiYhW5WZaoA903FoMoqLNh Pjxj j8aog1ilqJg0AwS4DCHmmnYv sRatNAI3x9KiIz61R16hMTeu GWSgKPMuEAQxPEFhhGsdmv6b dG9w Ii8+SMYfrRY0gEB4vY9lSzUk KxH2RTqfH795KmKckEFbZxii D92pL4LpaTL+KUCpQnl3BSYx dHls IQ6muNEfZRioCz9cXUU7SmSc BeJvUGqiJ5IiSJDwtucncieu jNJ4WVKhYTNjnK55Pb6gxIck MTBw gNXVuI6kluyxr0asfiaaGqMi GZEuEKo3QPp6HFHdmRkeAmVj QSG2OqZ4WYE1nFSedX8gdKbp bjog qC5dI8ShZSSuuuhcWj48mM1p YvYjWqB1TVkaYqc+H2mAX36R ZUCEE6qYRIr0Y1XdAag7RGRj dHls AX4uiXPfLOffMl2veCsonEnb BD4fVQWcpxvkLSZqzC2bIUDe eDDvyLdnCQ0yDBRgwuyae802 OiAx MIW2RBHtqOBsU9ZgrG2xCgWi FERdJFAkE9TgyEApEXxuE054 RLnjSlB5OVQaovIeM5PvFBGd aWdu FkE0h8G8Um4aBO4tRJ5dEYN9 PP23EL06oSTip0I9hWG1H4To BRZlvlqiwlumbSM2CHGbSOKb aW47 wZQnJSamEe4jb8B4s998OZOo BJOsqC03Gy1neBsjYELejQZP sI5hwfggs8ycniufLzLjCOZo MDt0 ZPw9ZJHjbVcaTkHpBHG0HmM2 UGA0lWBweM7icGodncgzaA2t Oyc+NosmRDFzuyM9B2NyBol5 ZCBz sAgqAK0wvIAkLDnuNz6shJff xRggLV3bKBDjpdecYDTwzJ9l VIGedMFcsTleYF0mOEFfvpzh b250 MeBcSKJ3MWKiwUXyM8ZbfZ2h WhYwXLFiKXCcH7ZmrXOiQNer X651RAyyRpU9UHAiikPmX8Cx LWFs yIjwOeK7e9H2Vm4VGWbANT91 XH87qDCfi7G8fQQ3F4JeDOLk qjgbwzgwoPO3VHFlCUGsgE87 cGFk TJpjBa5ui7C9s603ZNKnORDw qO07Nw4eoFblPKRysUAPfK5q porni2uidgtlStXhGVAaADg7 ZXh0 RDZhnSppMrVjZAS5YdQ8UJB5 nWTigV6piCelubpnmK9eJlx+ Y2U5V4AoEzyorHI+KX24EJPl ZT48 zHSawROoj4vuvSl5LgGvYEKb SXD8sRhsVQvbn4FvHSSrZ95a rHRsg2J0RSBqjTqmdNNsXnLb bXB0 jB1dDQoxlfdxg6gkzahjSrqc c8opwx13eW66Y69nEJbnYJTx KXDsCWNeSQVwxQlxea6kxD6u Ii8+ WPFotXG0iVN0uN1kFbBzNsM2 GZygM843BaNttTFwEhzfq4ai y2ftcSg9CrMrWASyibDgqNiv PSJ0 s5AxTr77X69pRSuuOYIoADKy TXSwBNTbhDprjb0opG1gBr6+ ZX2qg8xxjp51zY99fZN+PHRk IHN0 qMwxNWabTPUciT9hFWnfTeQ5 CVPfAtZbqG05dABjKOrkGf5h cTbtiPblIQ0kHVPddiicj979 OiBi s1dwVLLpqMZuFFfrSFP4V87h l0N7UWBdKXHmBIJ4iQK5iL6y bGlnbjogbGVmdDsgdmVydGlj YWwt RFhlJ085HRWfhRvrSqIkhVZy T0ygrgYMFT7qEztrmGA+PHRk YWB7kHkdMEckWSPecN8cHRYu Z2h0 JaNbZiR7QRxkV6FjnsS7TLOl vIUpIQHflHUCeN0caquvl2da teslBjTeLXWdDSh1FGl7HMBo aWdu IcSlNMB5NmM2EPE5zMRvoE5c sZtixtjvcN0aQaa+RklOOjwv dGQ+YWKhQUU9bCowQKtkUECv aW5n RCLmC1q3QmEoFlN2EWmgF5Qy bhQ1UNQxqFIoFIJuqWFTeO2n ewrpe5fhyyhiKcByIUQxYAk5 ZXh0 QUTvlSbeSgFyGVU8XzH4KHN0 eAVenB6ijMfpxdryvC9pHmo+ TVJOOjwvdGQ+OVCfJOH5nLof PSdw UDTpuN1tQDKgD3f9EzLzTeJ0 MVcbF8SucoH9QYMicUGaGHDw aRXHbC3anfilr7qwcucwOzPe MDAw AHn8MFp5BBVoyYmbIpZiZPX9 IuV8VWM7vLXioR0fdHruyefa fV9hQeg+XDR1HEM4ZI17DG29 L3Ry PjwvdGFibGU+PHRhYmxlIHdp UGKbVJpuQRRmVmTzaTwbOV3h Qg7iHRYuRLUflUrkdVXxMeYn b2xs YXB (more content not included)... Normal [facility] US LE Art Physiological Stud y Bilateralon 06-28-2023 LE [employer] Physiological Study Bilateral CLINICAL HISTORY: Pain. COMPARISON: [...] MD 07/01/23 5:56 pm Technologist: DONITA CUELLAR Normal [facility] US LE Arterial Duplex Kade murcia 06-28-2023 [...] >400 cm/s Occlusion No color saturation Jose PHAN, Sung JE, et al. Comparison of contrast angiography to arterial mapping with color flow duplex imaging in the lower extremities. J Vasc Surg 1989;10:522-32 Final Signed (Electronic Signature): Elizabeth King MD 07/01/23 5:39 pm Technologist: Maldonado GARCIA [facility] 06-27-2023 L ---- Specimen: [id number] Received: 06/27/23 Status: LENNY Gallegos Num: [id number] Spec Type: Surgical Subm Dr: Eliceo Dobson MD Tissues: A Duodenum - Biopsy (DUODENUM) B Gastric Biopsy (GASTRIC BX) Procedures: BRUCE/[place], Gross/Micro L4/2 Age/ Patient Sex Location Account Attending Physician Daniele Perry 78/M [id number] Eliceo Dobson MD SPEC NUM: [id number] RECD: 06/27/23 STATUS: LENNY GALLEGOS NUM: [id number] ROD: 06/27/23 DR: Eliceo Dobson MD ENTERED: 06/27/23 [facility] DR: SPEC TYPE: Surgical DEPT: S ORDERED: [...] submitted in one cassette labeled B1. Specimen: [id number] Received: 06/27/23 Status: LENNY Gallegos Num: [id number] Spec Type: Surgical Subm Dr: Eliceo Dobson MD Tissues: A Duodenum - Biopsy (DUODENUM) B Gastric Biopsy (GASTRIC BX) Procedures: Dennis PENA/Micro L4/2 Patient: Daniele Perry [id number] (Continued) Specimen: [id number] Received: 06/27/23 (Continued) Signed (signature on file) Tani Lucas MD 07/01/23 1508 Specimen: [id number] Received: 06/27/23 Status: LENNY Gallegos Num: [id number] Spec Type: Surgical Subm Dr: Eliceo Dobson MD Tissues: A Duodenum - Biopsy (DUODENUM) B Gastric Biopsy (GASTRIC BX) Procedures: Dennis PENA/Micro L4/2 Patient: Daniele Perry [id number] (Continued) Specimen: [id number] Received: 06/27/23 (Continued) Microscopic Description A. Two H E slides reviewed. The microscopic examination confirms the diagnosis. B. Two H E slides reviewed. The microscopic examination confirms the diagnosis. CPT Codes 20306f8 Specimen: [id number] Received: 06/27/23 Status: LENNY Galelgos Num: [id number] Spec Type: Surgical Subm Dr: Eliceo Dobson MD Tissues: A Duodenum - Biopsy (DUODENUM) B Gastric Biopsy (GASTRIC BX) Procedures: HE/4, Gross/Micro L4/2 Patient: Daniele Perry [id number] (Continued) Signed (signature on file) Tani Lucas MD 07/01/23 1508 [facility] Provider Orderson 06-24-2023 Provider Orders [id number] GTIFF [facility] 04-04-2023 L ---- Specimen: [id number] Received: 04/04/23644 Status: LENNY Gallegos Num: [id number] Spec Type: Surgical Subm Dr: Eliceo Dobson MD Tissues: A Gastric Biopsy (GASTRIC BX) Procedures: HE/2, Gross/Micro L4 Age/ Patient Sex Location Account Attending Physician Daniele Perry /[facility] [id number] Eliceo Dobson MD SPEC NUM: [id number] RECD: 04/04/23 STATUS: LENNY GALLEGOS NUM: [id number] ROD: 04/04/[address] [facility] [address]: Eliceo Dobson MD ENTERED: 04/04/[address] [facility] DR: FLOYD TYPE: Surgical DEPT: S ORDERED: [...] microscopic examination confirms the diagnosis. CPT Codes 44067 Specimen: [id number] Received: 04/04/23 Status: LENNY Gallegos Num: [id number] Spec Type: Surgical Subm Dr: Eliceo Dobson MD Tissues: A Gastric Biopsy (GASTRIC BX) Procedures: HE/2, Gross/Micro L4 Patient: Daniele Perry [id number] (Continued) Signed (signature on file) Manda Faye MD 04/05/23 1004 [facility] [place] 04-04-2023 Screens [id number] :127 [facility] Patient Educationon 04-03-20 Patient Education [...] ? 8 oz (237 mL) of milk, hlhlylp-wszlhisvbyje-bak ry milk, and calcium-fortifiedfruit juice. Calcium-fortified means [...] Spinach (cooked), rhubarb, beets, sweet potatoes, and Malaysian chard. ? Peanuts. ? Potato chips, urdu fries, and baked potatoes with skin on. ? Nuts and nut products. ? Chocolate. ? If you regularly take a diuretic medicine, make sure to eat at least 1 or 2 servings of fruits or vegetables that are high in potassium each day. These include: ? Avocado. ? Banana. ? [place], prune, carrot, or tomato juice. ? Baked [...] fish oil, or vitamin B6. ? Take mqkb-aeh-rxsoktd and prescription medicines only as told by your health care provider. These include supplements. What foods should I limit? Limit your in (more content not included)... Normal [facility] Urology Office/Clinic Noteon 04-03-2023 Urology Office/Clinic [...] (N20.0: Calculus of kidney) Pt presented to [facility] ER on 04/02/22 due to RLQ [...] URL [facility] [address], [place] [address]- Additional Instructions: 1 yr KUB Patient Education [...] 10 mg-1 (more content not included)... Normal [facility] Comment on above: Result Comment: Elec tronically Signed By: Julio FORBES MD\.br\Date and Time Signed: 04/03/23 13:23 EDT\.br\Electronically Co-Signed By: Hansa Espinoza\.br\Date and Time Co-Signed: 04/03/23 13:22 EDT Coding Summaryon 03-27-2023 Coding Summary HTMLBase 64 ZobfmlehANf7zTu+PGhlYWQ+ VN1ZCVLdV40wmYZddX9bJ6SD TElOSywgQVBQTElOSyIgbmFt BD3htRKjIWOr IC8+TP3dCQReWscoeLCed1F4 hXZ0O35xig6zLQzxyHW3WWQi LdWkefhii4exzHd5MZnyYaim OyBt ODKmyT35OVE8xU30Vh94rMSu dDXbq5wlvHu3JfDdSICyGNN2 iXzkZOrev3KzUFUiT31fnPSq c2U6 QMYffIowtPFpJmLmkPZ5wV0u BZxxgszto9khqijnVqf6jf38 rDBrz4A3vCT8R6TumzT5GTKy bGQg XzxicMUYbY1lmwufb7wcvsez RjQzOZTaRKd2GWq7YDFcvChk VoNwTV47GED9QJLltzFhR6Xw LWFs yWiqBwZ8w1K2Qa7TQ3YAAajc K5KHGEHKAFhqhNQ+PR94ki32 F5FnEukyQdx2OXClASA1kHI3 aD0n XJAvGYxel0M7uEY1Z1CcyfSi ob8nk3dbINUwKHqhJ18ehINd q7N5EFHvkDI7XMMnfYzdElXr aG93 Oyc+FMHmoIivw6CxAeiwr0gp g5pefMb3YpnkWLMrwjUpyFqu IFZ4m6AzNb3aFRJlsAU9bZB7 aD0i HkRaMnQ1PQneT975KeCitXCl XxxwY19eM5FzgAF+PHRyPjx0 VLUbtAheAW9zL4JcYNSgkkuy bGVm fVgoRV3dBXHzfxooXPNymH2z LYZlF9y6FxRaVoG3KWhgX5Cq RWPggyxvWy60wW3rYiHhHyO8 MGlu T7BmatZ7WHWalXRwTGbqYWM4 W99ga3E4AOAhMWWeLOC7qKW2 qI3fmMcaaikzhKFluZzgwsHv dGlj EMkaBMwzO420FFWyxKmgNuIa ZGluZyBEYXRlOiAgMDYvMjEv MjAyMzwvdGQ+SKNaPFY9mOqn PSAn yXRsGDttYy4kcTglzZbcFN3p WVAvwazpSDNudA3vGGKvmIHy mUbxQN1wQHUvhendo773RcPd MHB0 JMOapGBvB2CkpX9iEwEeCEEf MJMkR2QdqOGgFIysO615DIsy AgC4RNBspmBtR3AbIKTowMsi OiB0 k3G4Xd0Ny1RddqtcP9LtuPZj UdChIitlZLy4E9JpZrlwcTL+ SK30NWPhXL79IXd1PGU2aXyo PSdi LLVzH1WxbX7sImNgDXLjJPHt Oyc+PHRhYmxlIHdpZHRoPScx FUMjBzQewJqqED2aQg9oYNOz LWNv fYvneOYoWsVqy2jdHTQjOGod VH8oiZaaI4GihJK2OZCax4t2 Ui41V48zB0DrlCP+PGNvbCB3 aWR0 dW2lUtViPcH7SMfjJ162QbIq gGArGnrzi0vmx6ofcEe0KiF6 PIHlokJmlNaeJKK8t4SyWl59 Y29s IHdpZHRoPSIxNSUiIHZhbGln dr4enC5xLd0+FOVlbRJ5cZU4 nS7wGfPkRyZ6KLjvO433ZqNg cCIv Sgdqi5iuj9mieYf3PvGdKVAs kmIcfWrkTBZ9w5ImFb42V8Bq lGxkf1NtZhb2dv15fWWhm8A6 bGU9 L7SyBRPkmqfwcCPrtXbuAU7q WGEtvzkyPVFhaZ4lZSIvS8l1 TdUfBaJ2PEwkC2PzlqD5MNJm bGQg YOIezSBPkL7olicdj3voitow VfLgOSPxKJr0MPf1OCYhfZsp QiYzBOG3QrL4CNA7bQQbgP3y bGln zmfxaV7mBgi+YDO1kQSpiYIY OA8pBowdgRE+YWRoGBM1kQit OSlrKKPcbM4gERUvX8s0PjMj LjA1 CNmaF5XwgaO8JSXyaLYeDTUm fJYTbF4xmqllq9euhwjjAwFu JHAnYEg3ZXh8EUWonChyRcTt ZWZ0 YnM5OXN7sEWvjO9prZkqmrqr sA9lHgp+AcwmgLweOMP1WLw4 Z5CeYbu7CLAdsXlwOH4okCDk ZGlu In0oaZuesNbfII8xQBGqxoar f973VkLld4adUDBlnWAkDHqh CXE3Y38hx2R0JKDxFFJdDVA4 dGV4 vC2toIabxvsjpDNafTzfzpXq qXnsBGnmMUenM722GSEceZjo IkMuIDk2W2LlJeq4JVAnjKpi ZT0n aBUeVFnaPt0vlVtfnZyiIW6h JIGaixhmi360KmAus6vsVXWn iOEtNKfjTYJ1C88tl7F8PYSt MDAw JOG2pJA6nX4zvEoqconnaAFy hKqfgsVroLfvVJueZCltM498 DIUgpBgtTwKwnHf2K4ZySvz9 ZCBz fMumWP9faCDuDObfAd9ujAnd zEqbLD0rMYYovpnjd909VfKk o3nvNXUnkZNoQQyqABM8V01n b3I6 BWRqRAUdWKW3kSN8nK5zrPeh bjogbGVmdDsgdmVydGljYWwt VEjaU326JIDglRkjOkCajWti bnQg JAkvWPj5H1JtIokwmUN+PC90 QZYxNJ45cKTlxWWpk4pdpZv5 RtNaSNIdGRU4tPyrKYesj9No ZXIt S47kqEYbb4S6ITSkkEcmkLYr RaFdjBS7tW0vDJjjhdova0sq iqghLomen5cemk55jR47T92d IHdp KIKuXSZoPMMkJZXbcGetro0i qI9wGu2+XVQmkRC6zQA4bL6h SJUbCkK3CCtpR929VnDueCHl Pjxj k7ptw5zmqAi5WvV4DDYtriIq pHwrOQZ6y3KuIk59R53gCSfi JINmGATiLEBxFVWghOqtfy8r dG9w Ii8+RNKitPP3mAR2gC2dOoLp JuE6HHijA952EbYmpJUsLxsu K34yM4EilVT+VRMnGqh1SUOa dHls GL6yoXJyRPfwMz4sIMK6GpWy IzBmOPmkO6UtFXTnhovujdxr eCG9CCQxCOUyzV92Fm1ccAyd MTBw mOWOmK1lvsziz1dwfadaRxYk CCQsYMa6HQn5APQzdKwiWyBc NTH0WaH6ZSO5rGHeqU1weTnn bjog aU9uV8RwOJDobbudIb96mX1g EjFcKlE1LIqeFte+V1gPU38T BWFHE3qJPIe1X8OaQiz1LEIo dHls JT6rmOPyEGznXj1kcUqdtBwn AS0bWJHawcfjIAYorJ7hCGQb eHOljDmhNW2eUNJtayirb613 OiAx AKH8PNQraSVxQ7MlcW4bCiJl AZBoPKJiG6RebPSlMGphA628 UObyTaA8KBLhqdMmZ4ElKLOf aWdu BgS4l2P8Oh2lQL2sAQ4yXLN7 UN86NP44kUMhz2L8cCK5S2Bn SYRttueavfqxmHS8VAHoDQAy aW47 lQUvSHveDt1ih8F6f805MTEp WMMisX00Wm8rzFeeTTGgrKJE tL7mysbzi3wnnxkpHcViMFJg MDt0 AYu1BYZeqHeuNoMqQIX6TtK8 ZTS5oDCyaC1mqClkstimeK6a Oyc+NnzwOTJepaL0I9KpIxv5 ZCBz fXhaZQ3jdAUpFBvpTd4kxNuo kKgpWI0hUKTplkduATFhlI3f RVImyVLoqSehMJ2eAQJxknqx b250 LjMbGIY0BILuzDZlP3UgeC6k SwBbQRGfEPTnE8FacUVgVAav H800JVrxDoN3ZJFfskSiZ7Be LWFs dFikLwO7x3Q4Jf0GWDoKWL70 IX87mVJwx4S0nLR0D6XyLRRd uhmvillcjYH7QEFoBUGheL34 cGFk LVobRo4hw8Y7r832VBWxSLWr cD85Ns7zaLtnBDUreSRXnF6r lxrgj1bgbgwqRkKzHTZjTNn3 ZXh0 QNCkcBmbBkPlCLO1YeV8RZF5 mGJddD3qpZyvbraplX8cHcu+ A6W1X6LxEjcyxAV+PF03FRKr ZT48 wHXbjQQdh9weqQv7VnSoLRWv MRQ2dXdoUQsrt4BoVGRlG89w rKBgg4R3ZKBurBeomYInTeBt bXB0 pM2cZNxbkwwft4mlhytnPdeb f7apsj57dQ63Z44rSRaaFTTp ITKvXMGnYFUrvZclmg7kjX9g Ii8+ MYSjrZO2aFS3cT3wZlVgFxX8 GKezK963JrYudVTgHgbcq6vx j4ylcLk7OoIaMQXijiIsgKqm PSJ0 e3TrOm01K95oPLhtDWPkUISc HYZtMJKugQtkcg3qjE3uGm2+ LT1vx8quua31uC84hNX+PHRk IHN0 fMiiVNknVGUheS1vRIcoTnU8 WPBaSnTamB27zOIvBPvkUl8p tRjzlGvlEL0nAFEgcqcen048 OiBi l7piZWOcaKBfGCxcOCI1Z81h s5H7SXOlVPYdLGE0rDF8uY5v bGlnbjogbGVmdDsgdmVydGlj YWwt YWxzP010YRLwvWiwMuGslZVx Y9iazvVSDE0rJisbcYR+PHRk OYI1oTmfPQagRCJsbG7dBLXj Z2h0 NzXmQjJ4BMwdF5MswlY9SSGa jSRiBTTjzWOAsI7otifcb2ei jvukQmPoWTKpCBe2TWc1OGAs aWdu BmNlPHN6PcB8OKO0uPUnfJ5a cMdynteihD3iCez+RklOOjwv dGQ+WKEnUYK2rXnkVTbuKHKf aW5n LPVqX8o9XoDsZgQ0PAblE8Dy snH0IXLugZVwWOFjcZIIaW1b jtlkf3loydwyTuUkALWxGYj1 ZXh0 NHAzaTolZkJyLED2GhR6FFO3 oLUhdI8fcKtxbqftwH5wMie+ TVJOOjwvdGQ+IGWfSVZ9bPsi PSdw HXOthM7pRMIcD3a4OlMkWeN2 XMofS5TqvpK9IOWeqOWoSBRp tHPBlP4yebqzo0krmbknIbBw MDAw USe4MXv3MYKvkDnbDrHmPYA4 LxE1LTY7lWXzyJ9dfVtmenij gE4eYns+ZZL6NZO0LG26DH25 L3Ry PjwvdGFibGU+PHRhYmxlIHdp JHHoEMneYIFtPkGzvUzvBP7l Tc4yLCAkHHDcyZuihSCdCvSq b2xs YXB (more content not included)... [facility] Provider Orderson 03-27-2023 Provider Orders [id number] IFF [facility] RAD - MISCon 03-26-2023 RAD - MISC [id number]: 127 [facility] XR Abdomen Single View (KUB) on 03-26-2023 XR Abdomen Single View (KUB) _Findings: 3 mm calcification upper pole right kidney. 3 mm calcification lower pole left kidney. Gas and stool in colon. No diffuse small bowel dilatation. No mass effect. Marginal osteophytes visualized lumbar spine. Impression: Bilateral renal calculi. Final Signed (Electronic Signature): Elvin Chambers MD 03/26/23 12:07 p Technologist: Juaquin SUAREZ [facility] XR wrist LT min 3V*on 2021 XR wrist LT min 3V* [facility] [employer] Other XR wrist LT min 3V* [facility] [employer] Other XR wrist LT min 3V* [address] [place] [address] [employer] Other XR wrist LT min 3V* [place] [address] [facility] [employer] Other XR wrist LT min 3V* XRay Report [place] Other XR wrist LT min 3V* Signed Done. Other XR wrist LT min 3V* Patient: Daniele Perry MR#: [id number] [facility] [employer] Other XR wrist LT min 3V* [address] [place] Other XR wrist LT min 3V* : 1945 Acct:[id number] Done. Other XR wrist LT min 3V* Age/Sex: 76 / M ADM Date: 11/06/21 Done. Other XR wrist LT min 3V* Loc: [facility] Room: Type : [facility] Done. Other XR wrist LT min 3V* Attending Dr: Trino Crain DO Done. Other XR wrist LT min 3V* Ordering Provider: Trino Crain DO Done. Other XR wrist LT min 3V* Date of Service: 11/06/21 Done. Other XR wrist LT min 3V* XR/XR wrist LT min 3V*: Left wrist pain Done. Other XR wrist LT min 3V* Copies to: Trino Crain DO Done. Other XR wrist LT min 3V* Left wrist 4 views. Done. 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 No known injury. Done. Other XR wrist LT min 3V* COMPARISON: None. Done. Other XR wrist LT min 3V* FINDINGS: No focal s oft tissue abnormality is seen. Chondrocalcinosis involving the TFCC. No acute Done. Other XR wrist LT min 3V* bony process is note d. Degenerative changes of the carpal bones including the CMC joint of the Done. Other XR wrist LT min 3V* thumb. Done. Other XR wrist LT min 3V* X R/XR wrist LT min 3V* Done. Other XR wrist LT min 3V* Impression: No acute bony process is seen. Degenerative change. Done. Other XR wrist LT min 3V* Impression dictated by: Gil Romero Jr., D.OLuisa11/06/2021 4:21 PM Done. Other XR wrist LT min 3V* Dictation Location: [facility]-- Done. Other XR wrist LT min 3V* Transcribed By: PWS 11/06/21 1621 Done. Other XR wrist LT min 3V* Dictated By: Gil Romero Jr, DO 11/06/21 1620 Done. Other XR wrist LT min 3V* Signed By: Done. Other XR wrist LT min 3V* 11/06/21 1621 No [place] Other CALCULI, URINARYon 0 2,8 Dihydroxyadenine Normal [facility] Comment on above: Performed By: #### C BC #### [facility] [address] [id number] [place] Ammonium Acid Urate Normal [facility] Comment on above: Performed By: #### C BC #### [facility] [address] [place], [place] [address] [place] Bilirubin [Mass/Vol] Normal [facility] Comment on above: Performed By: #### C BC #### [facility] [address] [place], [place] [address] [place] Ca Oxalate Dihydrate 30 % Normal [facility] Comment on above: Performed By: #### C BC #### [facility] [address] [place], [place] [address] [place] CaHPO4 (Brushite) Normal [facility] Comment on above: Performed By: #### C BC #### [facility] [address] [place], [place] [address] [place] Calcium Bilirubinate Normal [facility] Comment on above: Performed By: #### C BC #### [facility] [address] [address] [place] Calcium Carbonate Normal [facility] Comment on above: Performed By: #### C BC #### [facility] [address] [address] [place] Calcium Oxalate Monohydrate 70 % Normal [facility] Comment on above: Performed By: #### C BC #### [facility] [address] [address] [place] Calcium Palmitate Normal [facility] Comment on above: Performed By: #### C BC #### [facility] [address] [address] [place] Calcium Phosphate Normal [facility] Comment on above: Performed By: #### C BC #### [facility] [address] [place] [address] [place] Calcium Stearate Normal [facility] Comment on above: Performed By: #### C BC #### [facility] [address] [place] [address] [place] Carbonate Apatite Normal [facility] Comment on above: Performed By: #### C BC #### [facility] [address] [place] [address] [place] Cellular Material Normal [facility] Comment on above: Performed By: #### C BC #### [facility] [address] [place] [address] [place] Cholesterol [Mass/Vol] Normal [facility] Comment on above: Performed By: #### C BC #### [facility] [address] [place] [address] [place] Color (U) Black Normal [facility] Comment on above: Performed By: #### C BC #### [facility] [address] [place] [address] [place] Comment Normal [facility] Comment on above: Performed By: #### C BC #### [facility] [address] [place] [address] [place] Comment: Comment Normal [facility] Comment on above: Result Comment: Dillan kraft questions regarding Calculi Analysis contact [facility] at: [phone]. Performed By: #### C BC #### [facility] [address] [address] [place] Composition Comment Normal [facility] Comment on above: Result Comment: Perc entage (Represents the % composition) Performed By: #### C BC #### [facility] [address] [address] [place] Cystine Normal [facility] Comment on above: Performed By: #### C BC #### [facility] [address] [address] [place] Disclaimer: Comment Normal [facility] Comment on above: Result Comment: This test was developed and its performance characteristics determined by [facility]. It has not been cleared or approved by the Food and Drug Administration. Performed By: #### C BC #### [facility] [address] [address] [place] Dried Blood Normal [facility] Comment on above: Performed By: #### C BC #### [facility] [address] [place] [address] [place] Drug or Metabolite Normal [facility] Comment on above: Performed By: #### C BC #### [facility] [address] [place] [address] [place] Hydroxyapatite Normal [facility] Comment on above: Performed By: #### C BC #### [facility] [address] [place] [address] [place] Mg NH4 PO4 (Struvite) Normal [facility] Comment on above: Performed By: #### C BC #### [facility] [address] [place] [address] [place] MgHPO4 (Newberyite) Normal [facility] Comment on above: Performed By: #### C BC #### [facility] [address] [place] [address] [place] Other component(s) Normal [facility] Comment on above: Performed By: #### C BC #### [facility] [address] [id number] [place] PDF . Normal [facility] Comment on above: Performed By: #### C BC #### [facility] [address] [address] [place] Photo Comment Normal [facility] Comment on above: Result Comment: Phot ograph will follow under a separate cover Performed By: #### C BC #### [facility] [address] [address] [place] Please note: Comment [facility] Comment on above: Result Comment: Calc pee report will follow via computer, mail or yeast fermentation attendant delivery. Performed By: #### C BC #### [facility] [address] [address] [place] Size 2x2 Normal [facility] Comment on above: Result Comment: Mult iple pieces received. Dimensions of the largest piece reported. Performed By: #### C BC #### [facility] [address] [address] [place] Sodium (U) [Moles/Vol] [facility] Comment on above: Performed By: #### C BC #### [facility] [address] [address] [place] Source Comment Normal [facility] Comment on above: Result Comment: Not provided Performed By: #### C BC #### [facility] [address] [address] [place] Triamterene Normal [facility] Comment on above: Performed By: #### C BC #### [facility] [address] [address] [place] Urate [Mass/Vol] Normal [facility] Comment on above: Performed By: #### C BC #### [facility] [address] [address] [place] Uric Acid Dihydrate Normal [facility] Comment on above: Performed By: #### C BC #### [facility] [address] [place], [place] [id number] Sbarabella Richardsonen Weight 4 mg Normal [facility] Comment on above: Performed By: #### C BC #### [facility] [address] [place], [place] [id number] [place] Xanthine Normal [facility] Comment on above: Performed By: #### C BC #### [facility] [address] [place], [place] [id number] [place] CBC AUTO DIFFon 04-07-2020 Basophils (Bld) [#/Vol] 0.1 103/ul Normal 0.0-0.1 [facility] Comment on above: Performed By: #### C BC #### [facility] [address] [place] [address] [place] Basophils/100 WBC (Bld) 0.6 % Normal 0.2-2.0 [facility] Comment on above: Performed By: #### C BC #### [facility] [address] [place] [address] [place] Eosinophils (Bld) [#/Vol] 0.3 103/ul Normal 0.0-0.7 [facility] Comment on above: Performed By: #### C BC #### [facility] [address] [place] [address] [place] Eosinophils/100 WBC (Bld) 3.6 % Normal 0.9-7.0 [facility] Comment on above: Performed By: #### C BC #### [facility] [address] [place], [place] [id number] [place] Erythrocyte distribution width (RBC) [Ratio] 14.5 % Normal 11.0-15.[address] [facility] Comment on above: Performed By: #### C BC #### [facility] [address] [place] [address] [place] Hematocrit (Bld) [Volume fraction] 54.1 % Critically high 42.0-54.0 [facility] Comment on above: Performed By: #### C BC #### [facility] [address] [place] [address] [place] Hemoglobin (Bld) [Mass/Vol] 17.2 g/dL Normal 14.0-18.0 [facility] Comment on above: Performed By: #### C BC #### [facility] [address] [place] [address] [place] IG # 0.02 10e3/ul Normal 0.00-0.03 [facility] Comment on above: Performed By: #### C BC #### [facility] [address] [place] [address] [place] IG % 0.2 % Normal 0.0-0.5 [facility] Comment on above: Performed By: #### C BC #### [facility] [address] [place] [address] [place] Lymphocytes (Bld) [#/Vol] 2.7 103/ul Normal 1.2-3.8 [facility] Comment on above: Performed By: #### C BC #### [facility] [address] [place] [address] Sbarabella Weinstein Lymphocytes/100 WBC (Bld) 32.0 % Normal 20.5-60.0 [facility] [facility] Comment on above: Performed By: #### C BC #### [facility] [address] [place] [address] Sb Weinstein MANUAL DIFF REQ NO Normal [facility] Comment on above: Performed By: #### C BC #### [facility] [address] [place] [address] Sbarabella Richardsonen MCH (RBC) [Entitic mass] 29.6 pg Normal 25.9-34.0 [facility] Comment on above: Performed By: #### C BC #### [facility] [address] [place] [address] Sb Corinna MCHC (RBC) [Mass/Vol] 31.8 g/dL Normal 29.9-35.2 [facility] Comment on above: Performed By: #### C BC #### [facility] [address] [place] [address] Sbarabella Weinstein MCV (RBC) [Entitic vol] 93.1 fL Normal 80.0-94.0 [facility] Comment on above: Performed By: #### C BC #### [facility] [address] [place] [address] Sb Corinna Monocytes (Bld) [#/Vol] 0.9 103/ul Critically high 0.3-0.8 [facility] Comment on above: Performed By: #### C BC #### [facility] [address] [place], [place] [id number] Sb Corinna Monocytes/100 WBC (Bld) 11.1 % Normal 1.7-12.0 [facility] Comment on above: Performed By: #### C BC #### [facility] [address] [place], [place] [id number] Sb Corinna Neutrophils (Bld) [#/Vol] 4.3 103/ul Normal 1.4-6.5 [facility] Comment on above: Performed By: #### C BC #### [facility] [address] [place], [place] [address] Sb Corinna Neutrophils/100 WBC (Bld) 52.5 % Normal 43.0-75.0 [facility] Comment on above: Performed By: #### C BC #### [facility] [address] [place], [place] [id number] Sb Corinna Platelet mean volume (Bld) [Entitic vol] 11.0 fL Normal 9.5-13.5 [facility] Comment on above: Performed By: #### C BC #### [facility] [address] [place], [place] [id number] Sb Corinna Platelets (Bld) [#/Vol] 232 103/ul Normal 150-[address] [facility] Comment on above: Performed By: #### C BC #### [facility] [address] [place], [place] [address] Sb Corinna RBC (Bld) [#/Vol] 5.81 106/ul Normal 4.70-6.10 [facility] Comment on above: Performed By: #### C BC #### [facility] [address] [place], [place] [address] Sb Corinna WBC (Bld) [#/Vol] 8.3 103/ul Normal 4.0-11.0 [facility] Comment on above: Performed By: #### C BC #### [facility] [address] [id number] Sb Weinstein PROF CHEM 8 (BAS METB)on Anion gap [Moles/Vol] 8.7 mmol/L Normal [facility] Comment on above: Performed By: #### B MP #### [facility] [address] [id number] Sb Corinna Calcium [Mass/Vol] 8.8 mg/dL Normal 8.4-10.2 [facility] Comment on above: Performed By: #### B MP #### [facility] [address] [place] [address] Sb Corinna Chloride [Moles/Vol] 104 mmol/L Normal 98-[address] [facility] Comment on above: Performed By: #### B MP #### [facility] [address] [id number] Sb Corinna CO2 [Moles/Vol] 32.5 mmol/L Critically high 22.0-30.[address] [facility] Comment on above: Performed By: #### B MP #### [facility] [address] [place], [place] [address] Sb Corinna Creatinine [Mass/Vol] 1.21 mg/dL Normal 0.66-1.[address] [facility] Comment on above: Performed By: #### B MP #### [facility] [address] [place], [place] [address] Sb Corinna EGFR-AF MALIAN >60 Normal >=60 [facility] Comment on above: Performed By: #### B MP #### [facility] [address] [place], [place] [address] Sb Corinna EGFR-NON AF MALIAN 58 mL/min/1.73m2 Critically low >=[address] [facility] Comment on above: Performed By: #### B MP #### [facility] [address] [place], [place] [address] Sb Corinna Glucose [Mass/Vol] 89 mg/dL Normal 74-106 [facility] Comment on above: Performed By: #### B MP #### [facility] [address] [place] [address] Sb Corinna Potassium [Moles/Vol] 4.2 mmol/L Normal 3.4-5.0 [facility] Comment on above: Performed By: #### B MP #### [facility] [address] [place] [address] Sb Corinna Sodium [Moles/Vol] 141 mmol/L Normal 137-145 [facility] Comment on above: Performed By: #### B MP #### [facility] [address] [place] [address] Sb Corinna Urea nitrogen [Mass/Vol] 15.0 mg/dL Normal 9.0-20.0 [facility] Comment on above: Performed By: #### B MP #### [facility] [address] [place] [address] Sb Corinna Urea nitrogen/Creatinine [Mass ratio] 12.4 mg/mg Normal [facility] Comment on above: Performed By: #### B MP #### [facility] [address] [place], [place] [address] Sbarabella Weinstein PROTIMEon 04-07-2020 INR Coag (PPP) [Relative time] 1.11 {INR} Normal [facility] Comment on above: Performed By: #### P T, PTT #### [facility] [address] [place], [place] [address] Sb Corinna PT Coag (PPP) [Time] SEE BELOW Normal [facility] Comment on above: Result Comment: VENKATESH RED INR: 2.0 - 3.0 CONDITIONS NOT LISTED BELOW 2.5 - 3.5 FOR PROSTHETIC HEART VALVE REPLACEMENT 2.5 - 3.5 RECURRENT THROMBOSIS Performed By: #### P T, PTT #### [facility] [address] [place] [address] Sb Corinna PT Coag (PPP) [Time] 11.5 s Normal 9.0-11.6 [facility] Comment on above: Performed By: #### P T, PTT #### [facility] [address] [place], [place] [address] Sbarabella Weinstein PT Coag (PPP) [Time] PLEASE NOTE: NORMAL RANGE CHANGE 06-24-2014 DUE TO REAGENT LOT CHANGE Normal [facility] Comment on above: Performed By: #### P T, PTT #### [facility] [address] [address] Sb Weinstein PTTon 04-07-2020 aPTT Coag (Bld) [Time] 28.8 s Normal 22.3-36.[address] [facility] Comment on above: Performed By: #### P T, PTT #### [facility] [address] [place], [place] [address] Sb Corinna aPTT Coag (Bld) [Time] PLEASE NOTE: NORMAL RANGE CHANGE 08-31-2015 DUE TO REAGENT LOT CHANGE Normal [facility] Comment on above: Performed By: #### P T, PTT #### [facility] [address] [place] [address] Sb Corinna XR KUB 1 VIEWon 04-07-2020 [...] ELIZABETH PERALES Date: 2020-04-07 11:55 Normal [facility] CBC AUTO DIFFon 03-10-2020 Basophils (Bld) [#/Vol] 0.1 103/ul Normal 0.0-0.[address] [facility] Comment on above: Performed By: #### C BC #### [facility] [address] [place] [address] Sbarabella Weinstein Basophils/100 WBC (Bld) 0.6 % Normal 0.2-2.[address] [facility] Comment on above: Performed By: #### C BC #### [facility] [address] [place], [place] [address] Sb Corinna Eosinophils (Bld) [#/Vol] 0.3 103/ul Normal 0.0-0.7 [facility] Comment on above: Performed By: #### C BC #### [facility] [address] [place], [place] [address] Sb Corinna Eosinophils/100 WBC (Bld) 4.1 % Normal 0.9-7.0 [facility] Comment on above: Performed By: #### C BC #### [facility] [address] [place], [place] [address] Sb Corinna Erythrocyte distribution width (RBC) [Ratio] 15.9 % Critically high 11.0-15.0 [facility] Comment on above: Performed By: #### C BC #### [facility] [address] [place], [place] [address] Sb Corinna Hematocrit (Bld) [Volume fraction] 57.1 % Critically high 42.0-54.0 [facility] Comment on above: Performed By: #### C BC #### [facility] [address] [place], [place] [address] Sb Corinna Hemoglobin (Bld) [Mass/Vol] 18.0 g/dL Normal 14.0-18.0 [facility] Comment on above: Performed By: #### C BC #### [facility] [address] [place] [address] Sb Corinna IG # 0.03 10e3/ul Normal 0.00-0.[address] [facility] Comment on above: Performed By: #### C BC #### [facility] [address] [place] [address] Sb Corinna IG % 0.4 % Normal 0.0-0.5 [facility] Comment on above: Performed By: #### C BC #### [facility] [address] [place], [place] [address] Sb Corinna Lymphocytes (Bld) [#/Vol] 2.3 103/ul Normal 1.2-3.8 [facility] Comment on above: Performed By: #### C BC #### [facility] [address] [place], [place] [address] Sb Corinna Lymphocytes/100 WBC (Bld) 29.4 % Normal 20.5-60.0 [facility] Comment on above: Performed By: #### C BC #### [facility] [address] [place], [place] [address] Sb Corinna MANUAL DIFF REQ NO Normal [facility] Comment on above: Performed By: #### C BC #### [facility] [address] [place], [place] [address] Sb Corinna MCH (RBC) [Entitic mass] 29.0 pg Normal 25.9-34.[address] [facility] Comment on above: Performed By: #### C BC #### [facility] [address] [place] [address] Sb Corinna MCHC (RBC) [Mass/Vol] 31.5 g/dL Normal 29.9-35.2 [facility] Comment on above: Performed By: #### C BC #### [facility] [address] [place] [address] Sb Corinna MCV (RBC) [Entitic vol] 91.9 fL Normal 80.0-94.0 [facility] Comment on above: Performed By: #### C BC #### [facility] [address] [place] [address] Sb Corinna Monocytes (Bld) [#/Vol] 0.8 103/ul Normal 0.3-0.[address] [facility] Comment on above: Performed By: #### C BC #### [facility] [address] [place] [address] Sb Corinna Monocytes/100 WBC (Bld) 10.4 % Normal 1.7-12.[address] [facility] Comment on above: Performed By: #### C BC #### [facility] [address] [place] [address] Sb Corinna Neutrophils (Bld) [#/Vol] 4.3 103/ul Normal 1.4-6.[address] [facility] Comment on above: Performed By: #### C BC #### [facility] [address] [place], [place] [address] Sb Corinna Neutrophils/100 WBC (Bld) 55.1 % Normal 43.0-75.0 [facility] Comment on above: Performed By: #### C BC #### [facility] [address] [place] [address] Sb Corinna Platelet mean volume (Bld) [Entitic vol] 10.8 fL Normal 9.5-13.5 [facility] Comment on above: Performed By: #### C BC #### [facility] [address] [place] [address] Sb Corinna Platelets (Bld) [#/Vol] 183 103/ul Normal 150-450 [facility] Comment on above: Performed By: #### C BC #### [facility] [address] [place], [place] [address] Sb Corinna RBC (Bld) [#/Vol] 6.21 106/ul Critically high 4.70-6.10 [facility] Comment on above: Performed By: #### C BC #### [facility] [address] [place] [address] Sb Corinna WBC (Bld) [#/Vol] 7.8 103/ul Normal 4.0-11.0 [facility] Comment on above: Performed By: #### C BC #### [facility] [address] [place] [address] Sbarabella Richardsonen PROF CHEM 8 (BAS METB)on Anion gap [Moles/Vol] 16.6 mmol/L Normal [facility] Comment on above: Performed By: #### B MP #### [facility] [address] [place] [address] Sb Corinna Calcium [Mass/Vol] 9.2 mg/dL Normal 8.4-10.2 [facility] Comment on above: Performed By: #### B MP #### [facility] [address] [place] [address] Sb Corinna Chloride [Moles/Vol] 102 mmol/L Normal 98-107 [facility] Comment on above: Performed By: #### B MP #### [facility] [address] [id number] Sb Corinna CO2 [Moles/Vol] 27.0 mmol/L Normal 22.0-30.0 [facility] Comment on above: Performed By: #### B MP #### [facility] [address] [address] Sb Corinna Creatinine [Mass/Vol] 1.22 mg/dL Normal 0.66-1.[address] [facility] Comment on above: Performed By: #### B MP #### [facility] [address] [address] Sb Corinna EGFR-AF MALIAN >60 Normal >=60 [facility] Comment on above: Performed By: #### B MP #### [facility] [address] [place] [address] Sb Corinna EGFR-NON AF MALIAN 58 mL/min/1.73m2 Critically low >=[address] [facility] Comment on above: Performed By: #### B MP #### [facility] [address] [address] Sb Corinna Glucose [Mass/Vol] 100 mg/dL Normal 74-106 [facility] Comment on above: Performed By: #### B MP #### [facility] [address] [place] [address] Sb Corinna Potassium [Moles/Vol] 4.6 mmol/L Normal 3.4-5.[address] [facility] Comment on above: Performed By: #### B MP #### [facility] [address] [address] Sb Corinna Sodium [Moles/Vol] 141 mmol/L Normal 137-145 [facility] Comment on above: Performed By: #### B MP #### [facility] [address] [address] Sb Corinna Urea nitrogen [Mass/Vol] 15.0 mg/dL Normal 9.0-20.[address] [facility] Comment on above: Performed By: #### B MP #### [facility] [address] [place] [address] Sb Corinna Urea nitrogen/Creatinine [Mass ratio] 12.3 mg/mg Normal [facility] Comment on above: Performed By: #### B MP #### [facility] [address] [address] Sbarabella Weinstein PROTIMEon 03-10-2020 INR Coag (PPP) [Relative time] 1.03 {INR} Normal [facility] Comment on above: Performed By: #### P TT, PT #### [facility] [address] [place], [place] [address] Sb Corinna PT Coag (PPP) [Time] SEE BELOW Normal [facility] Comment on above: Result Comment: VENKATESH RED INR: 2.0 - 3.0 CONDITIONS NOT LISTED BELOW 2.5 - 3.5 FOR PROSTHETIC HEART VALVE REPLACEMENT 2.5 - 3.5 RECURRENT THROMBOSIS Performed By: #### P TT, PT #### [facility] [address] [place] [address] Sb Corinna PT Coag (PPP) [Time] PLEASE NOTE: NORMAL RANGE CHANGE 06-24-2014 DUE TO REAGENT LOT CHANGE [facility] Comment on above: Performed By: #### P TT, PT #### [facility] [address] [place] [address] Sb Corinna PT Coag (PPP) [Time] 10.7 s Normal 9.0-11.[address] [facility] Comment on above: Performed By: #### P TT, PT #### [facility] [address] [place] [address] Sbarabella Weinstein PTTon 03-10-2020 aPTT Coag (Bld) [Time] 27.2 s Normal 22.3-36.[address] [facility] Comment on above: Performed By: #### P TT, PT #### [facility] [address] [place], [place] [address] Sb Corinna aPTT Coag (Bld) [Time] PLEASE NOTE: NORMAL RANGE CHANGE 08-31-2015 DUE TO REAGENT LOT CHANGE Normal [facility] Comment on above: Performed By: #### P TT, PT #### [facility] [address] [place], [place] [address] Sb Corinna XR KUB 1 VIEWon 03-10-2020 [...] by: NELA DOVE Date: 2020-03-10 09:41 Normal [address] [facility] CALCULI, URINARYon 0 2,8 Dihydroxyadenine Normal [facility] Comment on above: Performed By: #### C ALCULI #### [facility] [address] [place] [address] Sb Corinna Ammonium Acid Urate Normal [facility] Comment on above: Performed By: #### C ALCULI #### [facility] [address] [place] [address] Sb Corinna Bilirubin [Mass/Vol] Normal [facility] Comment on above: Performed By: #### C ALCULI #### [facility] [address] [place] [address] Sb Corinna Ca Oxalate Dihydrate 10 % Normal [facility] Comment on above: Performed By: #### C ALCULI #### [facility] [address] [address] Sb Corinna CaHPO4 (Brushite) Normal [facility] Comment on above: Performed By: #### C ALCULI #### [facility] [address] [id number] Sb Corinna Calcium Bilirubinate Normal [facility] Comment on above: Performed By: #### C ALCULI #### [facility] [address] [place], [place] [address] Sb Corinna Calcium Carbonate Normal [facility] Comment on above: Performed By: #### C ALCULI #### [facility] [address] [address] Sb Corinna Calcium Oxalate Monohydrate 90 % Normal [facility] Comment on above: Performed By: #### C ALCULI #### [facility] [address] [address] Sb Corinna Calcium Palmitate Normal [facility] Comment on above: Performed By: #### C ALCULI #### [facility] [address] [address] Sb Corinna Calcium Phosphate Normal [facility] Comment on above: Performed By: #### C ALCULI #### [facility] [address] [address] Sb Corinna Calcium Stearate Normal [facility] Comment on above: Performed By: #### C ALCULI #### [facility] [address] [address] Sb Corinna Carbonate Apatite Normal [facility] Comment on above: Performed By: #### C ALCULI #### [facility] [address] [address] Sb Corinna Cellular Material Normal [facility] Comment on above: Performed By: #### C ALCULI #### [facility] [address] [place] [address] Sb Corinna Cholesterol [Mass/Vol] Normal [facility] Comment on above: Performed By: #### C ALCULI #### [facility] [address] [address] Sb Corinna Color (U) Tiwari Normal [facility] Comment on above: Performed By: #### C ALCULI #### [facility] [address] [address] Sb Corinna Comment Normal [facility] Comment on above: Performed By: #### C ALCULI #### [facility] [address] [place] [address] Sb Corinna Comment: Comment Normal [facility] Comment on above: Result Comment: Dillan kraft questions regarding Calculi Analysis contact [facility] at: [phone]. Performed By: #### C ALCULI #### [facility] [address] [place] [address] Sb Corinna Composition Comment Normal [facility] Comment on above: Result Comment: Perc entage (Represents the % composition) Performed By: #### C ALCPEE #### [facility] [address] [place] [address] Sb Corinna Cystine Normal [facility] Comment on above: Performed By: #### C ALCULI #### [facility] [address] [place] [address] Sb Corinna Disclaimer: Comment Normal [facility] Comment on above: Result Comment: This test was developed and its performance characteristics determined by [facility]. It has not been cleared or approved by the Food and Drug Administration. Performed By: #### C ALCPEE #### [facility] [address] [place] [address] Sb Corinna Dried Blood Normal [facility] Comment on above: Performed By: #### C ALCPEE #### [facility] [address] [place] [address] Sb Corinna Drug or Metabolite Normal [facility] Comment on above: Performed By: #### C ALCULI #### [facility] [address] [place] [address] Sb Corinna Hydroxyapatite Normal [facility] Comment on above: Performed By: #### C ALCULI #### [facility] [address] [place] [address] Sb Corinna Mg NH4 PO4 (Struvite) Normal [facility] Comment on above: Performed By: #### C ALCULI #### [facility] [address] [place] [address] Sb Corinna MgHPO4 (Newberyite) Normal [facility] Comment on above: Performed By: #### C ALCULI #### [facility] [address] [place] [address] Sb Corinna Other component(s) Normal [facility] Comment on above: Performed By: #### C ALCULI #### [facility] [address] [place] [address] Sb Corinna PDF . Normal [facility] Comment on above: Performed By: #### C ALCULI #### [facility] [address] [id number] Sb Corinna Photo Comment Normal [facility] Comment on above: Result Comment: Phot ograph will follow under a separate cover Performed By: #### C ALCULI #### [facility] [address] [id number] Sb Corinna Please note: Comment Normal [facility] Comment on above: Result Comment: Calc pee report will follow via computer, mail or yeast fermentation attendant delivery. Performed By: #### C ALCULI #### [facility] [address] [address] Sb Corinna Size 4x3 Normal [facility] Comment on above: Result Comment: Sing le piece received. Performed By: #### C ALCULI #### [facility] [address] [address] Sb Corinna Sodium (U) [Moles/Vol] Normal [facility] Comment on above: Performed By: #### C ALCULI #### [facility] [address] [address] Sb Corinna Source Comment Normal [facility] Comment on above: Result Comment: Left Ureter Performed By: #### C ALCULI #### [facility] [address] [address] Sb Corinna Triamterene Normal [facility] Comment on above: Performed By: #### C ALCULI #### [facility] [address] [address] Sb Corinna Urate [Mass/Vol] Normal [facility] Comment on above: Performed By: #### C ALCULI #### [facility] [address] [address] Sb Corinna Uric Acid Dihydrate Normal [facility] Comment on above: Performed By: #### C ALCULI #### [facility] [address] [address] Sb Corinna Weight 32 mg Normal [facility] Comment on above: Performed By: #### C ALCULI #### [facility] [address] [place], [place] [address] Sb Weinstein Xanthine Normal [facility] Comment on above: Performed By: #### C VAHID #### [facility] [address] [place], [place] [address] Sb Weinstein Lipid Panelon 01-27-2019 Cholesterol in HDL mass conc 34 mg/dL Low 40-59 [facility] Comment on above: Result Comment: ATP [...] CHD Performed By: #### L IPID #### [facility] [address] [place] [address] Cholesterol in LDL mass conc 114 mg/dL Normal 0-129 [facility] Comment on above: Result Comment: ATP III LDL Classification is Near Optimal. Performed By: #### L IPID #### [facility] [address] [place] [address] Cholesterol mass conc 170 mg/dL Normal 0-199 [facility] Comment on above: Result Comment: ATP III Cholesterol classification is Desirable. Performed By: #### L IPID #### [facility] [address] [place] [address] Triglyceride mass conc 112 mg/dL Normal 0-150 [facility] Comment on above: Result Comment: ATP III Triglycerides Classification is Normal. Effective: 11/13/2018 New reference range for this analyte has been established. Performed By: #### L IPID #### [facility] [address] [place] [address] VITAMIN Don 01-27-2019 VITAMIN D 34.2 ng/mL Normal 30.0-100.0 [facility] Comment on above: Result Comment: (30- 100 ng/mL) Optimum Level This assay accurately quantifies the sum of vitamin D3, 25-Hydroxy and vitamin D2, 25-Hyroxy. Performed By: #### V ITD #### [facility] [address] [place] [address] Vitamin B12 and Folateon Cobalamin (Vitamin B12) mass conc 886 pg/mL Normal 232-1245 [facility] Comment on above: Performed By: #### B 12FO #### [facility] [address] [place] [address] Folate >20.0 Normal 7.3-26.1 [facility] Comment on above: Result Comment: As o f 16, the methodology has changed. Results from this methodology should not be compared with results from previous methodology. Performed By: #### B 12FO #### [facility] [address] [place] [address] Acetaminophenon 01-26-2019 Acetaminophen mass conc <5 Low 10-30 [facility] Comment on above: Performed By: #### A CETM #### [facility] [address] [place] [address] Alcoholon 01-26-2019 Ethanol mass conc mg/dL Normal [facility] Comment on above: Performed By: #### A LCOH #### [facility] [address] [place] [address] Ethanol mass conc Not indicated Normal [facility] Comment on above: Performed By: #### A LCOH #### [facility] [address] [place] [address] CBC With Platelet and Differ entialon 01-26-2019 Basophils #/vol (Bld) 0.1 10*3/uL Normal 0.0-0.2 [facility] Comment on above: Performed By: #### C BCWD #### [facility] [address] [place] [address] Basophils/100 WBC (Bld) 0.9 % Normal [facility] Comment on above: Performed By: #### C BCWD #### [facility] [address] [place] [address] Eosinophils #/vol (Bld) 0.2 10*3/uL Normal 0.0-0.7 [facility] Comment on above: Performed By: #### C BCWD #### [facility] [address] [place] [address] Eosinophils/100 WBC (Bld) 2.2 % Normal [facility] Comment on above: Performed By: #### C BCWD #### [facility] [address] [place] [address] Erythrocyte distribution width Ratio (RBC) 13.9 % Normal 11.5-14.5 [facility] Comment on above: Performed By: #### C BCWD #### [facility] [address] [place] [address] Hematocrit Volume Fraction (Bld) 55.4 % Critically high 42.0-52.0 [facility] Comment on above: Performed By: #### C BCWD #### [facility] [address] [place] [address] Hemoglobin mass conc (Bld) 18.3 g/dL Critically high 14.0-18.0 [facility] Comment on above: Performed By: #### C BCWD #### [facility] [address] [place] [address] Lymphocytes #/vol (Bld) 2.4 10*3/uL Normal 1.0-4.8 [facility] Comment on above: Performed By: #### C BCWD #### [facility] [address] [place] [address] Lymphocytes/100 WBC (Bld) 26.2 % Normal [facility] Comment on above: Performed By: #### C BCWD #### [facility] [address] [place] [address] MCH Entitic mass (RBC) 31.2 pg Normal 27.0-31.3 [facility] Comment on above: Performed By: #### C BCWD #### [facility] [address] [place] [address] MCHC mass conc (RBC) 33.0 % Normal 33.0-37.0 [facility] Comment on above: Performed By: #### C BCWD #### [facility] [address] [place] [address] MCV Entitic volume (RBC) 94.7 fL Normal 80.0-100.0 [facility] Comment on above: Performed By: #### C BCWD #### [facility] [address] [place] [address] Monocytes #/vol (Bld) 0.9 10*3/uL Critically high 0.2-0.8 [facility] Comment on above: Performed By: #### C BCWD #### [facility] [address] [place] [address] Monocytes/100 WBC (Bld) 9.6 % Normal [facility] Comment on above: Performed By: #### C BCWD #### [facility] [address] [place] [address] Neutrophils #/vol (Bld) 5.6 10*3/uL Normal 1.4-6.5 [facility] Comment on above: Performed By: #### C BCWD #### [facility] [address] [place] [address] Neutrophils/100 WBC (Bld) 61.1 % Normal [facility] Comment on above: Performed By: #### C BCWD #### [facility] [address] [place] [address] Platelets #/vol (Bld) 176 10*3/uL Normal 130-400 [facility] Comment on above: Performed By: #### C BCWD #### [facility] [address] [place] [address] RBC #/vol (Bld) 5.85 10*6/uL Normal 4.70-6.10 [facility] Comment on above: Performed By: #### C BCWD #### [facility] [address] [place] [address] WBC #/vol (Bld) 9.2 10*3/uL Normal 4.8-10.8 [facility] Comment on above: Performed By: #### C BCWD #### [facility] [address] [place] [address] Comprehensive Metabolic Pane manuel 01-26-2019 Anion gap molar conc 12 mmol/L Normal 9-15 [facility] Comment on above: Result Comment: Effe ctive: 11/13/2018 New reference range for this analyte has been established. Performed By: #### C MP #### [facility] [address] [place] [address] Albumin mass conc 4.1 g/dL Normal 3.5-4.6 [facility] Comment on above: Result Comment: Effe ctive: 11/13/2018 New reference range for this analyte has been established. Performed By: #### C MP #### [facility] [address] [place] [address] ALP enzyme act/vol 77 U/L Normal 35-104 [facility] Comment on above: Performed By: #### C MP #### [facility] [address] [place] [address] ALT enzyme act/vol 28 U/L Normal 0-41 [facility] Comment on above: Performed By: #### C MP #### [facility] [address] [place] [address] AST enzyme act/vol 23 U/L Normal 0-40 [facility] Comment on above: Performed By: #### C MP #### [facility] [address] [place] [address] Bilirubin mass conc 0.8 mg/dL Critically high 0.2-0.7 [facility] Comment on above: Result Comment: Effe ctive: 11/13/2018 New reference range for this analyte has been established. Performed By: #### C MP #### [facility] [address] [place] [address] Calcium mass conc 9.3 mg/dL Normal 8.5-9.9 [facility] Comment on above: Result Comment: Effe ctive: 11/13/2018 New reference range for this analyte has been established. Performed By: #### C MP #### [facility] [address] [place] [address] Chloride molar conc 100 mmol/L Normal 95-107 [facility] Comment on above: Result Comment: Effe ctive: 11/13/2018 New reference range for this analyte has been established. Performed By: #### C MP #### [facility] [address] [place] [address] CO2 molar conc 26 mmol/L Normal 20-31 [facility] Comment on above: Result Comment: Effe ctive: 11/13/2018 New reference range for this analyte has been established. Performed By: #### C MP #### [facility] [address] [place] [address] Creatinine mass conc 1.02 mg/dL Normal 0.70-1.20 [facility] Comment on above: Performed By: #### C MP #### [facility] [address] [place] [address] GFR/1.73 sq M predicted among blacks MDRD vol rate/area (S/P/Bld) mL/min/{1.73_m2} Normal >60 [facility] Comment on above: Result Comment: >60 mL/min/1.73m2 EGFR, calc. for ages 18 and older using the MDRD formula (not corrected for weight), is valid for stable renal function. Performed By: #### C MP #### [facility] [address] [place] [address] GFR/1.73 sq M.predicted MDRD vol rate/area mL/min/{1.73_m2} Normal >60 [facility] Comment on above: Result Comment: >60 mL/min/1.73m2 EGFR, calc. for ages 18 and older using the MDRD formula (not corrected for weight), is valid for stable renal function. Performed By: #### C MP #### [facility] [address] [place] [address] Globulin mass conc (S) 2.7 g/dL Normal 2.3-3.5 [facility] Comment on above: Performed By: #### C MP #### [facility] [address] [place] [address] Glucose mass conc 94 mg/dL Normal 70-99 [facility] Comment on above: Result Comment: Effe ctive: 11/13/2018 New reference range for this analyte has been established. Performed By: #### C MP #### [facility] [address] [place] [address] Potassium molar conc 4.5 mmol/L Normal 3.4-4.9 [facility] Comment on above: Result Comment: Effe ctive: 11/13/2018 New reference range for this analyte has been established. Performed By: #### C MP #### [facility] [address] [place] [address] Protein mass conc 6.8 g/dL Normal 6.3-8.0 [facility] Comment on above: Result Comment: Effe ctive: 11/13/2018 New reference range for this analyte has been established. Performed By: #### C MP #### [facility] [address] [place] [address] Sodium molar conc 138 mmol/L Normal 135-144 [facility] Comment on above: Result Comment: Effe ctive: 11/13/2018 New reference range for this analyte has been established. Performed By: #### C MP #### [facility] [address] [place] [address] Urea nitrogen mass conc 13 mg/dL Normal 8-23 [facility] Comment on above: Performed By: #### C MP #### [facility] [address] [place] [address] Creatine Kinaseon 01-26-2019 CK enzyme act/vol 92 U/L Normal 0-190 [facility] Comment on above: Performed By: #### C PK #### [facility] [address] [place] [address] Culture, Urineon 01-26-2019 Culture, Urine ORDERED BY: CHASIDY BOLAÑOS SOURCE: Urine Clean Catch COLLECTED: 01/25/19 23:30 ANTIBIOTICS AT ROD.: RECEIVED : 01/25/19 23:46 Culture, Urine FINAL 01/27/19 07:51 No growth [address] [facility] Comment on above: Performed By: #### C BCWD #### [facility] [address] [place] [address] Salicylateon 01-26-2019 Salicylate <0.3 Low 15.0-30.0 [facility] Comment on above: Result Comment: Anti -pyretic: 3.0-10.0 mg/dL Anti-inflammatory: 15.0-30.0 mg/dL Toxic: >30.0 mg/dL Performed By: #### S ALIC #### [facility] [address] [place] [address] TSH w/out Reflexon 9 Thyrotropin Qn 2.670 uIU/mL Normal 0.440-3.86 [facility] Comment on above: Result Comment: Effe ctive: 11/13/2018 New reference range for this analyte has been established. Performed By: #### T SH #### [facility] [address] [place] [address] UR Drugs of Abuse Panelon Drug Screen Comment see below Normal [facility] Comment on above: Result Comment: This method is a screening test to detect only these drug classes as part of a medical workup. Confirmatory testing by another method should be ordered if clinically indicated. Performed By: #### U DRGS #### [facility] [address] [place] [address] UR Amphetamines Screen Negative Normal Negative < [facility] Comment on above: Performed By: #### U DRGS #### [facility] [address] [place] [address] UR Barbiturates Screen Negative Normal Negative < [facility] Comment on above: Performed By: #### U DRGS #### [facility] [address] [place] [address] UR Benzo Screen Negative Normal Negative < [facility] Comment on above: Performed By: #### U DRGS #### [facility] [address] [place] [address] UR Cannabinoids Screen Negative Normal Negative < [facility] Comment on above: Performed By: #### U DRGS #### [facility] [address] [place] [address] UR Cocaine Screen Negative Normal Negative < [facility] Comment on above: Performed By: #### U DRGS #### [facility] [address] [place] [address] UR Opiates Screen Negative Normal Negative < [facility] Comment on above: Performed By: #### U DRGS #### [facility] [address] [place] [address] UR PCP Screen Negative Normal Negative < [facility] Comment on above: Performed By: #### U DRGS #### [facility] [address] [place] [address] Urinalysis, reflex to cultur caroline 01-26-2019 Bilirubin Ql (U) Negative Normal Negative [facility] Comment on above: Performed By: #### U AR #### [facility] [address] [place] [address] Clarity Nom (U) Clear Normal Clear [facility] Comment on above: Performed By: #### U AR #### [facility] [address] [place] [address] Color Nom (U) Yellow Normal Straw[facility]Clark [facility] Comment on above: Performed By: #### U AR #### [facility] [address] [place] [address] Glucose Ql (U) Negative Normal Negative [facility] Comment on above: Performed By: #### U AR #### [facility] [address] [place] [address] Hemoglobin Ql (U) Negative Normal Negative [facility] Comment on above: Performed By: #### U AR #### [facility] [address] [place] [address] Ketones Ql (U) 15 mg/dL Abnormal Negative [facility] Comment on above: Performed By: #### U AR #### [facility] [address] [place] [address] Leukocyte esterase Test strip Ql (U) SMALL Abnormal Negative [facility] Comment on above: Performed By: #### U AR #### [facility] [address] [place] [address] Nitrite Ql (U) Negative Normal Negative [facility] Comment on above: Performed By: #### U AR #### [facility] [address] [place] [address] pH (U) 5.0 [pH] Normal 5.0-9.0 [facility] Comment on above: Performed By: #### U AR #### [facility] [address] [place] [address] Protein Ql (U) Negative Normal Negative [facility] Comment on above: Performed By: #### U AR #### [facility] [address] [place] [address] Specific gravity Relative Density (U) 1.022 Normal 1.005-1.03 [facility] Comment on above: Performed By: #### U AR #### [facility] [address] [place] [address] Urine Reflexed to Culture YES Normal [facility] Comment on above: Performed By: #### U AR #### [facility] [address] [place] [address] Urobilinogen Qn (U) 0.2 {Amadeo'U}/dL Normal < 2.0 [facility] Comment on above: Performed By: #### U AR #### [facility] [address] [place] [address] Urine Microscopicon 01-27-20 19 RBC #/vol (U) 0-2 Normal 0-2 [facility] Comment on above: Performed By: #### U AL #### [facility] [address] [place] [address] Bacteria LM.HPF #/area (Urine sed) Negative Normal [facility] Comment on above: Performed By: #### U AL #### [facility] [address] [place] [address] Urine Epithelial Cells Auto 3-5 Normal 0-5 [facility] Comment on above: Result Comment: Effe ctive 09/01/2018 Urinalysis microscopic performed using the automated methodology (AUWI analyzer). Performed By: #### U AL #### [facility] [address] [place] [address] Urine WBC Auto 3-5 Normal 0-5 [facility] Comment on above: Result Comment: Effe ctive 09/01/2018 Urinalysis microscopic performed using the automated methodology (AUWI analyzer). Performed By: #### U AL #### [facility] [address] [place] [address] Vital Signs Date Time Vital Sign Value Performing Clinician Facility 11-01-2023 14:30-0500 Blood Pressure Location Julio FORBES [facility] 11-01-2023 14:30-0500 Diastolic blood pressure 89 mm[Hg] Julio FORBES [facility] 11-01-2023 14:30-0500 Heart rate 54 /min Julio FORBES [facility] 11-01-2023 14:30-0500 Respiratory rate 16 /min Julio FORBES [facility] 11-01-2023 14:30-0500 Systolic blood pressure 92 mm[Hg] Julio FORBES [facility] 10-09-2023 13:47-0500 Blood Pressure Location Julio FORBES [facility] 10-09-2023 13:47-0500 Diastolic blood pressure 65 mm[Hg] Julio FORBES [facility] 10-09-2023 13:47-0500 Heart rate 74 /min Julio FORBES [facility] 10-09-2023 13:47-0500 Systolic blood pressure 132 mm[Hg] Julio FORBES [facility] 06-27-2023 13:47-0400 Diastolic blood pressure 64 mm[Hg] GENERAL EXPEDITOR-C Amelia Eisenstein Work Phone: [facility] 06-27-2023 13:47-0400 Heart rate 56 /min GENERAL EXPEDITOR-C Amelia Eisenstein Work Phone: [facility] 06-27-2023 13:47-0400 Respiratory rate 18 /min GENERAL EXPEDITOR-C Amelia Eisenstein Work Phone: [facility] 06-27-2023 13:47-0400 SaO2% (BldA) [Mass fraction] 97 % GENERAL EXPEDITOR-C Amelia Eisenstein Work Phone: [facility] 06-27-2023 13:47-0400 Systolic blood pressure 100 mm[Hg] GENERAL EXPEDITOR-C Amelia Eisenstein Work Phone: [facility] 06-27-2023 11:58-0400 Body height 187.96 cm GENERAL EXPEDITOR-C Amelia Eisenstein Work Phone: [facility] 06-27-2023 11:58-0400 Body temperature 97.6 [degF] GENERAL EXPEDITOR-C Amelia Eisenstein Work Phone: [facility] 06-27-2023 11:58-0400 Body weight 81.64 kg GENERAL EXPEDITOR-C Amelia Eisenstein Work Phone: [facility] 04-04-2023 14:10-0400 Diastolic blood pressure 61 mm[Hg] GENERAL EXPEDITOR-C Amelia Eisenstein Work Phone: [facility] 04-04-2023 14:10-0400 Heart rate 64 /min GENERAL EXPEDITOR-C Amelia Eisenstein Work Phone: [facility] 04-04-2023 14:10-0400 Respiratory rate 16 /min GENERAL EXPEDITOR-C Amelia Eisenstein Work Phone: [facility] 04-04-2023 14:10-0400 SaO2% (BldA) [Mass fraction] 93 % GENERAL EXPEDITOR-C Amelia Eisenstein Work Phone: [facility] 04-04-2023 14:10-0400 Systolic blood pressure 95 mm[Hg] GENERAL EXPEDITOR-C Amelia Eisenstein Work Phone: [facility] 04-04-2023 11:52-0400 Body height 187.96 cm GENERAL EXPEDITOR-C Amelia Eisenstein Work Phone: [facility] 04-04-2023 11:52-0400 Body temperature 97.7 [degF] GENERAL EXPEDITOR-C Amelia Eisenstein Work Phone: [facility] 04-04-2023 11:52-0400 Body weight 79.37 kg GENERAL EXPEDITOR-C Amelia Eisenstein Work Phone: [facility] 04-03-2023 12:58-0400 Blood Pressure Location Julio FORBES [facility] 04-03-2023 12:58-0400 Diastolic blood pressure 57 mm[Hg] Julio FORBES [facility] 04-03-2023 12:58-0400 Heart rate 55 /min Julio FORBES [facility] 04-03-2023 12:58-0400 Systolic blood pressure 88 mm[Hg] Julio FORBES [facility] 11-06-2021 16:30-0500 Body height 187.96 cm Trino Crain Other Done. Other 11-06-2021 16:30-0500 Body mass index (BMI) [Ratio] 23.24 kg/m2 Trino Crain Other [facility] Other 11-06-2021 16:30-0500 Body weight 82.1 kg Trino Crain Other Done. Other Encounters Encounter Date Encounter Type Care Provider Facility Start: 11-21-2023 ambulatory Julio Sharpe ty:[id number] Start: 11-12-2023 ambulatory Julio Cloudi ty:[facility] Start: 11-01-2023 End: 11-01-2023 Patient encounter procedure Julio FORBES [facility] Start: 11-01-2023 End: 11-02-2023 ambulatory Julio FORBES Facility:[facility] Start: 10-25-2023 End: 10-28-2023 ambulatory [facility]UNE[facility] Start: 10-25-2023 [facility] [place] [facility] Start: 10-25-2023 End: 10-27-2023 [facility]: 10-24-[facility]23 End: 10-25-2023 Emergency department patient visit [facility] Facility:[facility] Start: 10-18-2023 End: 10-18-2023 Emergency department patient visit [facility] Facility:[facility] Start: 10-17-2023 End: 10-18-2023 ambulatory Julio FORBES Facility:[id number] Start: 10-12-2023 End: 10-12-2023 Emergency department patient visit [facility] Facility:[facility] Start: 10-09-2023 End: 10-10-2023 ambulatory Julio FORBES Facility:[facility] Start: 10-09-2023 End: 10-09-2023 Patient encounter procedure Julio FORBES [facility] Start: 10-02-2023 End: 10-03-2023 ambulatory [facility] Facility:[facility] Start: 09-07-2023 End: 09-07-2023 Emergency department patient visit Mohan Hogan Facility:[facility] Start: 06-28-2023 End: 06-29-2023 ambulatory Mirian Zazueta Facility:[facility] Start: 06-27-2023 End: 06-27-2023 ambulatory Imad Asaad Facility:[facility] Start: 06-27-2023 End: 06-27-2023 Admission to same day surgery center GENERAL EXPEDITOR-C Amelia Qureshimaria victoria Work Phone: [facility] Work Phone: Start: 06-27-2023 End: 06-27-2023 ambulatory GENERAL EXPEDITOR-C Amelia Batista Work Phone: [facility] Work Phone: Start: 04-08-2023 End: 04-08-2023 ambulatory Imad Asaad Other Done[facility] Other Start: 04-08-2023 Telephone encounter Imad Asaad [facility] Start: 04-04-2023 End: 04-04-2023 ambulatory Amelia Eisenstein Facility:[facility] Start: 04-04-2023 End: 04-04-2023 Admission to same day surgery center GENERAL EXPEDITOR-C Amelia Eisenstein Work Phone: [facility] Work Phone: Start: 04-04-2023 End: 04-04-2023 ambulatory GENERAL EXPEDITOR-C Amelia Kieraenstein Work Phone: [facility] Work Phone: Start: 04-03-2023 End: 04-04-2023 ambulatory Julio FORBES Facility:[facility] Start: 04-03-2023 End: 04-03-2023 Patient encounter procedure Julio FORBES [facility] Start: 03-26-2023 End: 03-27-2023 ambulatory Amelia Eisenstein Facility:[facility] Start: 11-16-2022 End: 11-16-2022 ambulatory Trino Crain Other Done. Other Start: 11-16-2022 Office outpatient visit 15 minutes Trino Crain [facility] Start: 08-08-2022 End: 08-08-2022 ambulatory Trino Crain Other Done[facility] Other Start: 08-08-2022 Office outpatient visit 15 minutes Trino Crain [facility] Start: 04-25-2022 End: 04-25-2022 Lab Drop off Julio FORBES [facility] Start: 04-25-2022 End: 04-25-2022 Patient encounter procedure Julio FORBES [facility] Start: 11-07-2021 End: 11-07-2021 ambulatory Nela Alegria Other [facility] [employer] Other Start: 11-07-2021 Telephone encounter Nela Alegria [facility] Gastroenterology Start: 11-06-2021 End: 11-06-2021 ambulatory Nela Alegria Other [facility] [employer] Other Start: 11-06-2021 Office outpatient ne w 30 minutes Trino Crain [facility] Orthopedics Start: 11-06-2021 Telephone encounter Nela Alegria [facility] Gastroenterology Start: 04-07-2020 End: 04-07-2020 Patient encounter procedure JULIO FORBES Facility:[facility]1 Start: 04-04-2020 Patient encounter procedure JULIO FORBES Facility:[facility] Start: 03-10-2020 End: 03-10-2020 Patient encounter procedure JULIO FORBES Facility:[facility] Start: 02-03-2020 End: 02-03-2020 Patient encounter procedure JULIO FORBES Facility:[facility] Start: 01-26-2019 End: 01-26-2019 [facility] Procedures Date Procedure Procedure Detail Performing Clinician Start: 10-17-2023 Transurethral cystoscopy Julio FORBES Start: 10-07-2023 Imaging guided percutaneous drainage of kidney Julio FORBES Start: 06-27-2023 Esophagogastroduodenoscopy GENERAL EXPEDITOR-C Amelia Batista Work Phone: Start: 04-04-2023 Esophagogastroduodenoscopy GENERAL EXPEDITOR-C Amelia Batista Work Phone: Start: 04-25-2020 Extracorporeal shockwave lithotripsy of calculus of kidney Julio FORBES Start: 03-10-2020 Extracorporeal shockwave lithotripsy of calculus of kidney Julio FORBES Start: 02-03-2020 Cystoscopic extraction of ureteric calculus without disintegration Julio FORBES Start: 01-26-2019 Urnls dip stick/tablet rgnt auto [...] Date Care Activity Detail Author Start: 06-27-2023 [facility] Start: 04-04-2023 [facility] Patient Education [facility] Work Phone: Immunizations Immunization Date Immunization Notes Care Provider Fa guerda 07-04-2023 influenza virus vaccine, unspecified formulation Julio FORBES [facility] 03-08-2023 pneumococcal 20-vinita nt conjugate vaccine Julio FORBES [facility] 03-08-2023 SARS-CoV-2 (COVID-19 ) [id number].[id number] Julio FORBES [facility] 07-06-2022 influenza virus vaccine, unspecified formulation Julio FORBES [facility] 07-06-2022 SARS-CoV-2 (COVID-19 ) mRNAMUL.ORD![id number] Julio FORBES [facility] 01-05-2022 SARS-CoV-2 mRNA (jdjkudzqlze-fdyo-eibp ose) vaccine Julio FORBES [facility] 07-13-2021 zoster vaccine recombinant Julio FORBES [facility] 07-10-2021 influenza virus vaccine, unspecified formulation Julio FORBES [facility] 07-03-2021 SARS-CoV-2 (COVID-19 ) mRNA BNT-162b2 vax Julio FORBES [facility] 06-08-2021 COVID-19 mRNA, Comirnaty (Pfizer) GENERAL EXPEDITOR-C Amelia Eisenstein Work Phone: [facility] 11-24-2020 COVID-19 mRNA, Comirnaty (Pfizer) GENERAL EXPEDITOR-C Amelia Eisenstein Work Phone: [facility] Comment on above: Result Comment: 2022: [id number] 11-03-2020 COVID-19 mRNA, Comirnaty (Pfizer) GENERAL EXPEDITOR-C Amelia Eisenstein Work Phone: [facility] Comment on above: Result Comment: 2022: [id number] 10-22-2018 zoster vaccine recombinant Julio FORBES [facility] 05-20-2018 zoster vaccine recombinant Julio FORBES [facility] 07-31-2015 tetanus and diphther ia toxoids, adsorbed, preservative free, for adult use (2 Lf of tetanus toxoid and 2 Lf of diphtheria toxoid) Julio FORBES [facility] Payers Date Payer Category Payer Medicare [id number] 2019 Medicare [id number] 1960 Medicare [id number] 1959 Unknown [id number] 1945 Unknown [id number] 2.16.8 40.1.513014.3.579.2.182 1945 Unknown [id number] 2.16.84 0.1.382218.3.579.2.593 1944 Unknown [id number] 2.16.84 0.1.988263.3.579.2.593 1944 Unknown [id number] 2.16.84 0.1.362723.3.579.2.593 1944 Unknown [id number] 2.16.84 0.1.460823.3.579.2.593 1944 Unknown [id number] 2.16.84 0.1.927377.3.579.2.1286 1944 Unknown [id number] 2.16.84 0.1.080237.3.579.2.1286 1944 Unknown [id number] 2.16.8 40.1.192123.3.579.2.128 1944 Unknown [id number] 2.16.8 40.1.714939.3.579.2.1286 1944 Unknown [id number] 2.16.8 40.1.620567.3.579.2.718 1944 Unknown [id number] 2.16.8 40.1.800418.3.579.2.718 1944 Unknown [id number] 2.16.8 40.1.799466.3.579.2.718 1944 Unknown [id number] 2.16.8 40.1.864437.3.579.2.718 1944 Unknown [id number] 2.16.8 40.1.149444.3.579.2. 1944 Unknown [id number] 2.16.8 40.1.069111.3.579.2.8 1944 Unknown [id number] 2.16.8 40.1.688850.3.579.2.718 1944 Unknown [id number] 2.16.8 40.1.328007.3.579.2.727 1944 Unknown [id number] 2.16.8 40.1.034701.3.579.2.727 1944 Unknown [id number] 2.16.8 40.1.857251.3.579.2.727 1944 Unknown [id number] 2.16.8 40.1.271674.3.579.2.727 1945 Unknown [id number] 2.16.8 40.1.294745.3.579.2.727 Self-pay Self Pay [id number] Social History Date Type Detail Facility Sex Assigned At Done. Other Start: 03-22-2021 End: 10-09-2023 Tobacco smoking status Ex-smoker (finding) [facility] Tobacco smoking status Never [facility] Start: 1945 Sex Assigned At Male F [facility] Goals Date Patient Goal Desired Activity /State Functional Status Date Assessment Result Facility 11-01-2023 Functional Status N/A [facility] [place] 10-09-2023 Functional Status N/A [facility] 04-03-2023 Functional Status N/A [facility] Clinical Notes 11-06-2021 to 11-01-2023 Note Date & Type Note Facility 11-01-2023 Hospital Discharg e instructions Patient Education 11/01/2023 14:35:11 Kidney Stones, Zfkl-zd-Acvc Kidney Stones Kidney stones are rock-like masses that form inside of the kidneys. Kidneys are organs that make pee (urine). A kidney stone may move into other parts of the urinary tract, including: The tubes that connect the kidneys to the bladder (ureters). The bladder. The tube that carries urine out of the body (urethra). Kidney stones can cause very bad pain and can block the flow of pee. The stone usually leaves your body (passes) through your pee. You may need to have a doctor take out the stone. What are the causes? Kidney stones may be caused by: A condition in which certain glands make too much parathyroid hormone (primary hyperparathyroidism). A buildup of a type of crystals in the bladder made of a chemical called uric acid. The body makes uric acid when you eat certain foods. Narrowing (stricture) of one or both of the ureters. A kidney blockage that you were born with. Past surgery on the kidney or the ureters, such as gastric bypass surgery. What increases the risk? You are more likely to develop this condition if: You have had a kidney stone in the past. You have a family history of kidney stones. You do not drink enough water. You eat a diet that is high in protein, salt (sodium), or sugar. You are overweight or very overweight (obese). What are the signs or symptoms? Symptoms of a kidney stone may include: Pain in the side of the belly, right below the ribs (flank pain). Pain usually spreads (radiates) to the groin. Needing to pee often or right away (urgently). Pain when going pee (urinating). Blood in your pee (hematuria). Feeling like you may vomit (nauseous). Vomiting. Fever and chills. How is this treated? Treatment depends on the size, location, and makeup of the kidney stones. The stones will often pass out of the body through peeing. You may need to: Drink more fluid to help pass the stone. In some cases, you may be given fluids through an IV tube put into one of your veins at the hospital. Take medicine for pain. Make changes in your diet to help keep kidney stones from coming back. Sometimes, medical procedures are needed to remove a kidney stone. This may involve: A procedure to break up kidney stones using a beam of light (laser) or shock waves. Surgery to remove the kidney stones. Follow these instructions at home: Medicines Take zhrj-gde-cphmvvw and prescription medicines only as told by your doctor. Ask your doctor if the medicine prescribed to you requires you to avoid driving or using heavy machinery. Eating and drinking Drink enough fluid to keep your pee pale yellow. You may be told to drink at least 8 10 glasses of water each day. This will help you pass the stone. If told by your doctor, change your diet. This may include: ?Limiting how much salt you eat. ?Eating more fruits and vegetables. ?Limiting how much meat, poultry, fish, and eggs you eat. Follow instructions from your doctor about eating or drinking restrictions. General instructions Collect pee samples as told by your doctor. You may need to collect a pee sample: ?24 hours after a stone comes out. ?8 12 weeks after a stone comes out, and every 6 12 months after that. Strain your pee every time you pee (urinate), for as long as told. Use the strainer that your doctor recommends. Do not throw out the stone. Keep it so that it can be tested by your doctor. Keep all follow-up visits as told by your doctor. This is important. You may need follow-up tests. How is this prevented? To prevent another kidney stone: Drink enough fluid to keep your pee pale yellow. This is the best way to prevent kidney stones. Eat healthy foods. Avoid certain foods as told by your doctor. You may be told to eat less protein. Stay at a healthy weight. Where to find more information National Kidney Foundation (NKF): www.kidney.org Urology Care Foundation (UCF): www.urologyhealth.org Contact a doctor if: You have pain that gets worse or does not get better with medicine. Get help right away if: You have a fever or chills. You get very bad pain. You get new pain in your belly (abdomen). You pass out (faint). You cannot pee. Summary Kidney stones are rock-like masses that form inside of the kidneys. Kidney stones can cause very bad pain and can block the flow of pee. The stones will often pass out of the body through peeing. Drink enough fluid to keep your pee pale yellow. This information is not intended to replace advice given to you by your health care provider. Make sure you discuss any questions you have with your health care provider. Document Revised: 05/28/2022 Document Reviewed: 05/28/2022 [email or web address] Patient Education 2022 [employer]ia[employer]. Follow Up Care 10/29/2023 16:41:26 With:ANDREI WEEKS, Julio Woods, URL Address: [facility] [address] , [place] [address]- [phone] When: Unknown Comments:Will schedule Cysto, RG pos. stent removal in a few weeks. [facility] [place] 10-18-2023 Note Education Materials Urology Ureteral Stent [...] these instructions at home: Medicines ? Take fyll-xda-dkdzhjx and prescription medicines only as told by [...] blood in your urine increases. ? Take ykjh-xvv-beemkoj and prescription medicines only as told by your health care provider. ? Drink enough fluid to keep your urine pale yellow. This information is not intended to replace advice given to you by your health care provider. Make sure you discuss any questions you have with your health care provider. Document Revised: 08/20/2022 Document Reviewed: 07/30/2022 [email or web address][employer] Patient Education ? 2021 [employer]ia[employer]. [facility] 10-12-2023 Note Education Materials Urology Kidney [...] these instructions at home: Medicines ? Take qptl-ulk-rrnebze and prescription medicines only as told by [...] provider. Document Revised: 05/28/2022 Document Reviewed: 05/28/2022 ElseDyn Patient Education ? 2022 [employer]. [facility] 10-09-2023 Hospital Discharg e instructions Patient [...] Follow these instructions at home: Medicines Take jukq-hfz-jtvtdpm and prescription medicines only as told by [...] provider. Document Revised: 08/20/2022 Document Reviewed: 05/28/2022 [email or web address] Patient Education 2022 [employer]. 10/09/2023 14:26:16 Lithotripsy Lithotripsy Lithotripsy is a [...] including vitamins, herbs, eye drops, creams, and sitp-zng-zzbiacs medicines. Any problems you or family members [...] provider tells you to take them. Taking ctdq-wue-omchybs medicines, vitamins, herbs, and supplements. Tests You [...] provider. Document Revised: 08/20/2022 Document Reviewed: 05/28/2022 [email or web address] Patient Education 2022 [employer]ia[employer]. Follow Up Care 04/03/2023 13:24:26 With:ANDREI WEEKS, Julio Woods, URL Address: [facility] [address] [place] [address]- When: Unknown [facility] 09-09-2023 Note [id number] Note Education Materials Dentistry Dental [...] and teeth. This keeps them healthy. ? Foley your teeth 2 times a day. Use [...] prevented? ? To prevent dental caries: ? Foley your teeth every morning and night. Use [...] provider. Document Revised: 09/09/2020 Document Reviewed: 09/09/2020 ElseDyn Patient Education ? 2022 [employer]iaMD. [facility] 06-27-2023 Procedure note [facility] 04-04-2023 Procedure note [facility] 04-03-2023 Hospital Discharg e instructions [...] include: ?8 oz (237 mL) of milk, vxbathr-pzsfyxjwjgli-unruv milk, and calcium-fortifiedfruit juice. Calcium-fortified means that [...] ?Spinach (cooked), rhubarb, beets, sweet potatoes, and Malaysian chard. ?Peanuts. ?Potato chips, urdu fries, and baked potatoes with skin on. ?Nuts and nut products. ?Chocolate. If you regularly take a diuretic medicine, make sure to eat at least 1 or 2 servings of fruits or vegetables that are high in potassium each day. These include: ?Avocado. ?Banana. ?[place], prune, carrot, or tomato juice. ?Baked potato. [...] magnesium, fish oil, or vitamin B6. Take oijx-nfu-oyyshjy and prescription medicines only as told by [...] Casseroles. Pizza. Lasagna. Frozen meals. Potato chips. Colombian fries. The items listed above may not [...] provider. Document Revised: 06/04/2022 Document Reviewed: 06/04/2022 [email or web address].by Patient Education 2022 [employer]iaMD. Follow Up Care 03/28/2022 11:42:39 With:ANDREI WEEKS, Julio Woods, URL Address: [facility] [address] , [place] [address]- When: Unknown [facility] 11-16-2022 Evaluation note Encounter Date Diagnosis Assessment [...] and tingle for hours after this injection. Done. Other 11-02-2022 Evaluation note* Encounter Date Diagnosis [...] tolerated the injection well without adverse reaction. Done. Other 02-01-2022 Evaluation note* Encounter Date Diagnosis Assessment Notes Treatment Notes Treatment Clinical Notes Nov, Dysphagia (ICD-10 - R13.10) Done. Other 01-31-2022 Evaluation note* Encounter Date Diagnosis [...] today. Prior medical notes from nurse practitioner Lester and history have been reviewed. At this time I would recommend cortisone injection which she agrees to. Under sterile technique patient's left wrist was injected at the [facility] with 1 cc of Marcaine 1 cc [...] as documented in the electronic medical record. Done. Other Evaluation + Plan note Future Appointments Appointment Date:04/03/2023 01:00:00 PM Scheduled Provider:Julio FORBES MD Location:[facility] Appointment Type:URO Office Visit [facility] Evaluation + Plan note Future Appointments Appointment Date:04/03/2023 01:00:00 PM Scheduled Provider:Julio FORBES MD Location:[facility] Appointment Type:URO Office Visit Diagnostic Tests Pending * [facility] Appointment Date:10/09/2023 01:45:00 PM Scheduled Provider:Julio FORBES MD Location:[facility] Appointment Type:URO Office Visit [facility] Evaluation noteNo InformationNort Del [place] Other Evaluation noteNo assessment information available [facility] Work Phone: History and physical note Author Eliceo Dobson [facility] April 04, 2023 1:22pm Note Date/Time April 04, 2023 1:22 pm [facility] [address] [place] [address] Gastroenterology H&P Signed Patient: Daniele Perry MR#: [id number] : 1945 Acct:[id number] Age/Sex: 78 / M Adm Date: 3 Loc: Room: Type: [facility] Attending Dr: Eliceo Dobson MD Copies to: [...] M.D. Documented By: Eliceo Dobson MD 04/04/23 1321 Signed By: <Electronically signed by Eliceo Dobson MD> 04/04/23 1322 [facility] Work Phone: History and physical note Author Eliceo Dobson [facility] June 27, 2023 1:00pm Note Date/Time June 27, 2023 1:00pm [facility] [address] [place] [address] Gastroenterology H&P Signed Patient: Daniele Perry MR#: [id number] : 1945 Acct:[id number] Age/Sex: 78 / M Adm Date: 3 Loc: Room: Type: [facility] Attending Dr: Eliceo Dobson MD Copies to: [...] signed by Eliceo Dobson MD> 06/27/23 1300 [facility] Work Phone: History general Narrative - Reported* Type Description Date Medical History constipation Medical History Vitamin D deficiency Medical History depression Medical History erectile dysfunction Medical History testosterone deficiency Surgical History arthroscopic knee surgery Done. Other Hospital course Narrative No data available for this section [facility] Hospital Discharge instructions No data available for this section [facility] Hospital Discharge instructions Additional Instructions DISCHARGE INSTRUCTIONS [...] problems. -Follow up with PCP. -Office number [phone]. [facility] Work Phone: Hospital Discharge instructions Additional [...] NOT operate machinery such as power tools, [employer] mowers, snow blowers, sewing machines, etc. for [...] problems. -Follow up with PCP. -Office number [phone]. [facility] Work Phone: Progress note No data available for this section [facility] [place] Summary Purpose Family History No Family History [...] section and content) DATE CREATED AUTHOR 01/27/2019 [facility] DATE CREATED AUTHOR AUTHOR'S ORGANIZ ATION 04/23/[address] [facility] DATE CREATED AUTHOR AUTHOR'S ORGANIZ ATION 07/09/[address] [facility] DATE CREATED AUTHOR AUTHOR'S ORGANIZ ATION 10/27/2023 [facility] DATE CREATED AUTHOR AUTHOR'S ORGANIZ ATION 11/02/2023 [facility] DATE CREATED AUTHOR AUTHOR'S ORGANIZ ATION 11/06/2023 [facility] DATE CREATED AUTHOR AUTHOR'S ORGANIZ ATION 11/10/2023 [facility] REASON FOR VISIT (unrecogniz ed section and content) Left Wrist PainClinicalCOVID ORDERRecheck Left WristRecheck Left WristPOSTING SHEETEGD SCRIPT Care Team (unrecognized sect ion and content) Team Status: Active Member Role Status Dates LUC Rios Primary Care Provider Activ e Team Status: Inactive Member Role Status Dates [...] BE BASED ON THE PRIMARY CLINICAL RECORDS. [facility] [employer] [facility]. provides no warranty or guarantee of the accuracy or completeness of information in this document.
== END 2023-11-11 11:52 | disposition home or self-care (01) ==
LOC: PST 11:51
PROVIDERS: Visit Provider Urology
DX: Z01.818 Encounter for other preprocedural examination (principal); N20.0 Calculus of kidney; G20.A1 Parkinson's disease without dyskinesia, without mention of fluctuations; N40.0 Benign prostatic hyperplasia without lower urinary tract symptoms; E29.1 Testicular hypofunction; Z79.01 Long term (current) use of anticoagulants

== ENCOUNTER 2023-11-21 07:25 | Day surgery (SDC) | payer MEDICARE, SELFPAY ==
[2023-11-21] VITALS (13 sets, daily range): BP systolic 82–108; BP diastolic 55–68; PULSE 58–68; RESP 12–20; TEMP 35.7–35.9; O2SAT 94–100
--- OUTSIDE RECORDS SUMMARY | 2023-11-21 07:29 | XMS_ITS | CCD ---
Author Name Unknown Address [facility] [address] [place] [address] Organization [facility] Care Team Providers Care Relations Director Name Role Phone DEQUAN BIRGIT LAINA Primary [...] AMELIA BATISTA Primary Care Physician LUC Batista Primary Care Provider MD Bronson Imbrigido Attending Provider Asaad, Imad Unavailable Amelia Batista Primary Care [...] Hospital Primary Care Unavailable Tiller, Jalen Pappas Admitting Unavailable Tiller, Jalen Pappas Attending Unavailable Eisenstein, [facility] Primary Care Unavailable Forbes, Julio R Admitting Unavailable Forbes, Julio R Attending Unavailable Eisenstein, [facility] Primary Care Unavailable Forbes, Julio R Admitting Unavailable Forbes, Julio R Attending Unavailable Cook Railroad, Mirian Corey Admitting Unavailable Cook Railroad, Mirian Corey Attending Unavailable Eisenstein, [facility] Primary Care Unavailable Eisenstein, [facility] Primary Care Unavailable Fernando, Jalen Corey Admitting Unavailab le Wolcott, Jalen Corey Attending Unavailab le Forbes, Julio Woods Consulting Unavailable Eisenstein, [facility] Primary Care Unavailable Tiller, Jalen Pappas Attending Unavailable Tiller, Jalen Pappas Admitting Unavailable Omley, Mohan H Attending Unavailable Eisenstein, [facility] Primary Care Unavailable Omley, Mohan H Admitting Unavailable FORBES, Julio R Attending Unavailable FORBES, Julio R Attending Unavailable FORBES, Julio R Admitting Unavailable FORBES, Julio R Attending Unavailable FORBES, Julio R Attending Unavailable FORBES, Julio R Referring Unavailable FORBES, Julio R Attending Unavailable FORBES, Julio R Attending Unavailable FORBES, Julio R Attending Unavailable FORBES, Julio R Attending Unavailable Allergies Allergy Classification Reported Allergen(s) Allergy Type Date of Onset Reaction(s) Facility (6 sources) Shellfish; Translations: [shellfish] Drug allergy (disorder) Unknown (qualifier value) [facility] Repository (3 sources) Shellfish; Translations: [shellfish] Drug allergy Unknown (qualifier value) [facility] (4 sources) clams; Translations: [CLAMS] Allergy to substance 4 [facility] (2 sources) oysters Allergy to substance 0 [facility] (2 sources) OYSTER SHELL; Translations: [OYSTER SHELL] [...] Daily, # 90 tab(s), Refills(s) 3, Pharmacy: [facility]), 188, cm, [...] Daily, # 30 cap(s), Refills(s) 11, [id number], 188, cm, 04/03/23 13:02:00 EDT, Height/Length Dosing, [...] 12, 2021 2:37pm take 1 capsule by [facility] three times daily Gabapentin 300 MG take 1 capsule by mouth three times a day Oral for 30 Active Faic-Amqmm-Es1-Rqh-Zon-Aion- St (Glucosamine Chondroitin Plus) [phone] mg Capsule (2 sources) Start: 01-08-2018 take 1 capsule by mouth once daily Duwu-Btgcx-Vw0-Pev-Xdx-Rnek-St (Glucosamine Chondroitin Plus) [phone] mg Capsule Active 1500 MG PO Daily [...] 2 spray(s) nasal route twice daily Ipratropium Okatie 0.03 % instill 2 sprays into each [...] BID, # 6 tab(s), Refills(s) 0, Pharmacy: [facility] #[id number], 188, cm, 03/28/22 11:06:00 EDT, Height/Length Dosing, 85, kg, 03/28/22 11:06:00 EDT, Weight Dosing Start Date: 04/24/22 Status: Ordered Primidone (5 sources) Anti-epileptic Agent Start: primidone Oral, TID, Refills(s) 0 Start Date: 02/02/20 Status: Ordered Propranolol (7 sources) beta-Adrenergic Eliane Start: propranolol Start Date: [...] January 08, 2018 12:00am Vit A,C And T-Umpezh-Vlhrhxmc (Vision Formula (With Lutein)) 1,000 unit-200 mg-60 unit-2 mg Tablet (2 sources) Start: 01-08-2018 take 1 tablet by mouth once daily Vit A,C And O-Nwaqgy-Kjkvvsmm (Vision Formula (With Lutein)) 1,000 unit-200 mg-60 unit-2 mg Tablet Active 1 TAB PO Daily January 08, 2018 12:00am Completed/Discontinued Medications Medication Drug Class(es) Dates Sig (Normalized) Sig (Original) Multivitamin-Minera ls-Lutein (Multivitamin 50 Plus) Tablet (2 sources) Start: 01-08-2018 End: 12-12-2021 Multivitamin-Mine rals-Lutein (Multivitamin 50 Plus) Tablet Discontinued 1 TAB PO Daily January 08, 2018 12:00am December 12, 2021 2:38pm Rector 0-Nno-Vyf-Fish Oil (Fish Oil) 1,000 mg (120 mg-180 mg) Capsule (2 sources) Start: 01-08-2018 End: 12-12-2021 take 1 tablet by mouth once daily Rector 4-Ngg-Xxn-Fish Oil (Fish Oil) 1,000 mg (120 mg-180 [...] : 11-06-19 Chronic Other aftercare (1 source) longterm (current) use of anticoagulants; Translations: [CARE HOME CURRNT USE ANTICOAGULANTS] Onset: 04-14-20 Episodic Other aftercare (2 sources) Other alf (current) drug therapy; Translations: [OTH CARE HOME CURRENT DRUG THERAPY] Onset: 02-12-20 Episodic Other aftercare (1 source) longterm (current) use of aspirin; 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 transfer from [facility] ED, flank pain s/p ureteral stent, 78 yo M Report from [facility] Alert and oriented x4 Lithotripsy with stent last week Increased pain CT shows Onset: 10-25-19 Results Test Name Value Interpretation Reference Range Facility C Urineon 11-14-2023 Bacteria identified Cx Nom (U) Microbiology PROCEDURE: Urine Culture [R1] SOURCE: U Random BODY SITE: COLLECTED DATE/TIME: 11/12/2023 10:26 EST RECEIVED DATE/TIME: 11/12/2023 19:10 EST START DATE/TIME: 11/12/2023 19:10 EST FREE TEXT SOURCE: ANDREI WEEKS, Julio FORBES MD, Julio Woods FINAL REPORTS Final Report [] Verified Date/Time: 11/14/2023 07:05 EST 800 cfu/ml Mixed skin contaminants Performing Locations R1: This test was performed at: [facility], [address] [place] [address], [facility] , , [facility] Comment on above: Performed By: #### 2 [id number] ####[facility] [address] [place] [address] Coding Summaryon 11-05-2023 Coding Summary HTMLBase 64 KaowndjfLSy5fBo+PGhlYWQ+ US3WGMBdW91frCJdyP3uO5OP TElOSywgQVBQTElOSyIgbmFt XN2oxIYvBCAx IC8+ZZ9tTBVnKwmunHCqq5E2 cRL0W68qrr6xLDiynIP8UYJm KmKfqsqda4xalHo5ARbdPiad OyBt EDJejA33CFY4xA69Jn04kCUh nSGbq3vkuQn6GkDiUCNvLAE1 yIzkORjqb7RpXELuK35qtDJe c2U6 YGGqvOozjHIcCfJdvGO9uC6z UShfrkcml9adygpxMaq5ba68 bSEpe2M8kYU4G3GlyfY0TOHx bGQg KbqlhXOGuD9rstqbx0rkmair NiXyCMSzQTg6AHd6PSIggJth SyDuMU22BLV3STJdtiHgT7Tt LWFs gKtvVvL6k5V8Iq1ET5HTEmra F1UCTRKQCJcljHF+DI95vz94 W8SfZdxkCma5DFMaWEN2rDZ9 aD0n EXEeITosn5L9bMJ7V1IvnlVh rp7bq7suMFXdMNqpQ12jsVRc s0B0KGMklXK8OHSofYmfAuXm aG93 Oyc+ADKolLrdn3VkKbvhz1hp e3mpaUx4HxtqRVTjevSwlZid HAG6s3CfRg1mGNVjdUF8dSP6 aD0i ZkVsFjQ8FHkzK721ZxRjcZFl VjgxE38oC5ScmHC+PHRyPjx0 AQHpsBocHT2hO8EtAKDmaimm bGVm nLhrIW1zVCBpluovCXLqpR3d RYQwV1l2BdQjEmS1UQzgV6Vb RBIitgpnKp08cI9gGwPzHoS3 MGlu R4WfonM8UDIueAYbIXrvMBC2 K79ip1B0MEZqFWPnGNR0hWW4 uY9ipGpulwwbgPXaiBdotqPp dGlj HHbePUhiY877UQOjeOujEkMj ZGluZyBEYXRlOiAgMDEvMzAv MjAyNDwvdGQ+DNRoCRW5pYvv PSAn fEAvYFduPm8vbZwozFdbKE5f ZPDxcfrkTPBuoT3xWSIlvNUj cOiuIN4fQRCdtkgdf378HoOn MHB0 HPDhpGJqZ8DcqL7jOhCiIDKa WAGwF3ZgiMMdPUicD208VTgm TtR6VPHsobIrI1JxARWryVnu OiB0 p6D5Of0Tx8WlmwrkO1PieEWw XuEbTbqdOPj7Y2BdHiwujHQ+ ZN12JXScGT19JPj4RLV5mMle PSdi XBYxG0VsaH9hEmIaPPShDAWx Oyc+PHRhYmxlIHdpZHRoPScx GOWwFqXtwLgyTR4mXf9nOTAx LWNv kJlxgOXbCnIwi4clKSSbEKbb QK7zfTrkT8IooVH7OCGtu7k5 Ll63A39yW1JfxDO+PGNvbCB3 aWR0 kK1kLtHrAqF7ERdnE415BqYx cSMgNapko7ave3inaEx5UmL9 USOsjqUcfDdxBGQ8c3TfPh49 Y29s IHdpZHRoPSIxNSUiIHZhbGln zg3klD8eMq2+RCStxLV9pVZ3 xX1gLwCuBtY8OWwaD259UoSa cCIv Fsucc6pox9bwmIp0RhYeAAAu qoUfvXoeKAD0k2QzLe85E3Sw rHekm0AsZvr4ox54iYRih1F2 bGU9 L7WyNHIbeylxgIAwuYrfBE7f YKFanzudXERdmA8eXCDlE4a0 XhTrGwI7KZwnT0BpzbT2NFNc bGQg NQLmkIKJsV8daohgk3mswydu FtPpNWDvJCr7XGt4TJRytPkl UtZkLMZ4KkC3YFX0qJVrbD6u bGln pfzswB0tNcx+TEX1mFClgJAD FH2yThmgqZC+JIDfWFE0wJvg MOtrHFBgeT8dNPHgT0g9LbQv LjA1 RAqwU2CfvzC6OKPrwEXgGGRt mDREtI3kehhfl5fcgeamNlBd GOMeVVl9GPw4TMJcfTdgUnYz ZWZ0 DkN1XSD7jUZduY7geCczcjno yG8mCaf+HqvzoNxyOOZ7LXf0 B9PlQzj0NSSqjWcsQX6hdCXd ZGlu Bt4ntFglgVnmAT0nHQFpgdrq h947RuPlj6byPHWouSNyAKzp DXB9Q14vx7W9COSlTVGtTJE9 dGV4 nX9nmMzfyvfuhAUvpBflbgXv eZmuVDwaQCcxL572PCNncRwo InFxGDm2T3SaAbe2PKRiuOkb ZT0n nMMoGMxcZh3rhJqsvXprAR2o FSOwzmktc792OyTqf2wrCIMe xQZyGBtqNFM2T82tk6L1CQNp MDAw RCR9mMM5xG8gqJixtabntIZl dIygsrGzwJvyGYnhHDnrB203 KITuhQkyYaYsvGn5T0LaYxk8 ZCBz oTzbDR2ccYOpDZmtHa9jkYqd aYskVH9iXUIgygkig574OaSb j5vuDHZnhBNoDQvmDHS2U83u b3I6 HKKuJLCtWWU8qFB0nP3xlTcs bjogbGVmdDsgdmVydGljYWwt SSbhH912EVIvaRpeRaBebHsg bnQg YAjnFBx0C0MuMylzvFE+PC90 AIXyGQ41gBKjvNJjm5jssDy9 QeJxNYFvDXG1zTmsQLaoz3Tg ZXIt L83mvCEnf3S9GIAmqCoskIOu HuPerOO7fZ8iYLcwefsro3sz jnohAhrqx2azqf81hQ21W34y IHdp AKHbWIErGZQkFIFxmPskzm5p bT5mBe4+OUVlvAZ2lNL2iF0o BRPzRoR2RFulP766GhGioETd Pjxj z1lvz4jhkSv1LnJ6PEEbhiFh dZrlHVO1l4ZeCf28T85gPOgy VLXfNVQsFWRpLLJfpHsmus9k dG9w Ii8+FHYslKH5zMJ2wJ6fOnJp FgS9YFxuT539IvOdiKTcKupr W06aH6GwsJM+CWDvKvj9YUHh dHls FA4oyYBeBEfdBn7kAEB7RzRr BbUfOIeiJ7XsBVVddaruvjbw kBX6IXUlDPXchN97Et5jtDpl MTBw nSNPhA6wfjsbb3nhdqyuXnPv CBRvKLi6NLs3YFKaoAsgItKo PHL1DbC3UYM0eXQxmM2gsYea bjog bJ4mJ5NpOYZkyrxnJe15xM3h TnRfVbC2OXqbPgm+F0uII48O IOCZO2xJJXa6G0HsDzk2GIJm dHls MC2nxRBiWKuaWc3ioXqptYyz QI8sUZDkwlxzEHIhzZ6rHIYl fKBttDmfDO5vWZIvmprcz524 OiAx WJM1IYQtfBIwD4NdhL9jVtRj GVFlSNEnI0TnwCEdYIljC171 KGbpCrC2ITRclvAoC4QvYRZm aWdu PaF4h9D8Xs6qVD3jKT6pCLO9 EI74AB91uALny3K7sOH5X8Kz PDMdajqvkxaxdLK4IPHhWQHd aW47 mQBvHVfiHw4hz5L7e867AZUc NMNdxR46Ps2fjHxyCARpwPOZ yG3qmquri3jfwhhhCsVlCSUe MDt0 PKc1ULXpsMyrYkZdELH8ZmP9 AMX6cCBbyS5hhSzpmomndB3t Oyc+IymuXGZrouB0Z7ZeAwg0 ZCBz iYvvFF6phCKhWRmcEd7ayFtg tGjjIF1nHVUqjhznBPRnkB2q JMCimSGmjAxaZX1dTDZvvpki b250 GcAqMZM5OWZbpCAbI4CruB2g LhSeJIIpVEXcE0XsdFOgPQmt M345ISqwDhI8CQOllxJxP9Mn LWFs tUtyPfY8v2W3Pe9HIAwXPX94 GO98nUAkt8C3lEN0T4MkNOXm nvfdqmuttGW9NSIlTNCaaH34 cGFk PMgaVe3mp9K5x564ZOMqVIKi oJ43Ew9uxPjaGHReiANBvB8l swrvd0dicppfWhVoXCLwZJg8 ZXh0 FRNgkCsuWcMrOVU4PlZ1DDK0 uWMfsJ2iqGdiiuvswE6nHgs+ IK7exqukqcL8KB83RR23L8Np Pjwv dGFibGU+PHRhYmxlIHdpZHRo AGfrOLVoHiZjpGmeLZ5wSz7v LYZpTECenOwzfHEePkZid0mb YXBz YJqbLA2uaKkjK0AwqER5TTPk d3v0Np53J55hH2BozRH+PGNv nPU5sET8mH4gBfPgQnR3WJow Z249 VtRwiAUbZqzrw0cwf2gbaVh1 XcInJJAnasYwbBlbZGO7w8Ly Sw90Y81tQTbgJUQmQEIqTTFj IHZh oQyifw5amB4iMs1+PGNvbCB3 fXQ8nN8rIbFbJpY2FVznW577 WoRjcAVyAndcV00mB1XbfRK+ PHRy Arw5SVYnoHqbVM2wnHBqWDgz Sq2mGRF5ImXmXtBbLRupO3Bb EBZjzskaiogwtEC4PONoRGMz aW47 Eh4rvIbrPo3aXLQsPZY1ATIu yBReI2CpkH2pChDdGLMzLJSi I3CcwZKoLRmpU206HQyeVzA9 IHZl diRyS4GyAGAesFdvWbE1n3U5 Lg6TfWbvdAVvQG3lWeSqXVh3 W2WdUfk5KHPnwJhiUA2tvQHx ZGlu Jk9vjYfslNbhBQ9yCVYjmuhs d243WzPdq5hfXJYvmKCmDHov JVN4D85wr8D5RBUxGKAgPNN8 dGV4 tD8jsZdkkchqsOMzrPouztUx vJahGDmuUDzxD216ILQosKxg UcLZXdt8B5AfKzd7SCAywZsf ZT0n kBXhVIrdDu7lkWdimDprXQ8p OXVpashdg264WhOvv4voMFEr sAKyYZlsAMY0Y82ke6H1SHLs MDAw BEX1eUA0rU3lfCykpekmdXKl gOoyfzVfaGbkQBrcNBfnH440 QSTqbUvjAq9PGqz2X5ZiWor2 ZCBz hDfbQA5koOFpCEcfLk3lnRlh wEbcKG7yQYFjebtny946JcAu k4pbXKNkiDSrRRrtDKX7Q23z b3I6 RCEjXYFfWUN5zNB8hW4smFme bjogbGVmdDsgdmVydGljYWwt ZNqvH786GUGblXpwYdEflLWs Ojwv dGQ+DW62vq44I1LrZptzZma6 JXQuJVA5lVV6lQ4yABCrPZfy a0U3zFU7Y7RomcMszk2iy0ys YXBz ZTo (more content not included)... [facility] Consent for Procedure/Surger yon 11-05-2023 Consent for Procedure/Surgery [id number]#1.00TIF F [facility] Lab Reportson 11-05-2023 Lab Reports [id number]#1.00TIF F [facility] Lab Reports [id number]#1.00TIF F [facility] Lab Reports [id number]#1.00TIF F [facility] RAD - CT Reporton 11-05-2023 RAD - CT Report [id number]#1.00TIF F [facility] RAD - MISCon 11-05-2023 RAD - MISC [id number]#1.00TIF F [facility] Coding Summaryon 11-04-2023 Coding Summary HTMLBase 64 GspqkltrLHb0vXl+PGhlYWQ+ CP3PQLYiH72cyBSazF3eO3SD TElOSywgQVBQTElOSyIgbmFt FE0zyBHpYEMh IC8+OH4fBKYhYjvfeNMgt0D8 rWL4I05tth8uEWqkdRM7ROGo AgZnscwmo7xjgXr2VHflFozl OyBt DJZmiP86ELX2uZ59Tf38vMZn wIZtk7qtdVd3LsPeSJRrKHX7 cBayLZjww9KuWACdC42ilSXi c2U6 XERyeArafBHsPrYxwCV2gD6x WUcgfeocp7rwlvfvTvt2my53 jXTbi0G3qQA6K7XddyP9PDSl bGQg FlrkxUXUcC9vwypvv3gqidbr IvUkOJVqQGo1OCz8CUOsdIsj ZiWkSW42QYD3PZQjxyLqS5Qv LWFs gKcxMgH3y5Z6Fe4MW2BCCxhv W0ZMTIHCHUxalSK+XG96zq78 A1BwXgcjXdi6TKWkTKS2tKX7 aD0n EDTkHFldm1Z7dTM0Y6KkabRf kc1ch9dyXCWsCZsmS26fxDEn x6C2BTZbuGJ3YHOtrFuvVaJb aG93 Oyc+EGPbuEkzz1JkLcjow9kb j6plkFi6QybbJMKeuvMacNgo CDR5x2DuYv8qVYFmhYW1gPI4 aD0i MnQiFvB4QKbnV540FjXahLPp NkuzF21sK8SroLW+PHRyPjx0 OTHkhPjbPG3cA3WzDXEyevfq bGVm wKbvVK0lYHTcgnxgRUGtvM9m GFDiQ4w6JnVkHuC0ZHyyB1Zz WFEoafidDc53lS0yQfNeQaR0 MGlu Y7PpypJ1MRJfqDDkFHerSNG2 P50fp3X6TXOwCEReHDO7fEO5 tH3urPfatduaeAUcfCdaxjBm dGlj GKngITrfV839KCFtoFfpUtSe ZGluZyBEYXRlOiAgMDEvMjkv MjAyNDwvdGQ+TRRiQXQ5rEcd PSAn nXMpPLonOv6snLmxvNnuUF0o RQQfvimoUJPfxW7pWQOgvQIn fTjbSI7jBGHthvfis975BlMu MHB0 LMPxlBLrI9VeiH2sPmHkYOWs JAHxJ6CseNOaWZnjM267UYen SzL0GMDbejHmK8FrTKIfyZar OiB0 m1N5Ml2Ex9VinoyeL5UaaVNl AmGxGgslHVc2X3HrMeiclTH+ AJ97XTJqRB63ODf0LVP4mMxf PSdi TWUmM1RzmD6hHqMpFWFwYXYh Oyc+PHRhYmxlIHdpZHRoPScx ACBtTgGopUonYV7jPj9wERZq LWNv lRpieOVeIjJim5rmFRRjARhg NM5ltVatL8AseOO1QMLhq8v5 Sw81V22yG5NafQJ+PGNvbCB3 aWR0 eP3bSfSlFvU7HLvfC583AzSm kDKiTfhsv9nqh1bxzAj1GxK0 BYPicgDvxKleELN9m8YbTk23 Y29s IHdpZHRoPSIxNSUiIHZhbGln kq0wjS4iXg7+GIDjjVC5uDW1 rZ6yEfSmDpQ5JKdyV853LpOg cCIv Rlgpt0siv1pxbJr0YtFaBKQs wzMuqZyuZZF8c8PtIt33B1Vq gDyrt8SrWge4pz87aIWxl4K6 bGU9 R6UaNUHzjwikuZCneMouYB9x RLMejdqlOMDujF1xGRSyX6b2 JuBfIeE5MNgxY6LzirC6GGBj bGQg HIAvbJSBaS0nnufnz2qdmlmt PwQyLPUyJMz3LJh8CDIkwNht IhEeSEB4VoO3DKD7kBLizO1i bGln vxonlP8cBks+XDS3dYYjpFBE PC0yLfoldWI+QTOgDLX7xUul CJxyUTOntW3eVBWnE5e3VmMg LjA1 HShnR6IlygI9QMTvgHPxUJMb eCGNkQ9bcupzh8zqpwmnEsPg HJSwEXm7MQz2SESaeVkmMpGr ZWZ0 LuB5TGJ3eREbuJ4dnRjepeau tL9jHse+JshfiJaxMLN7DAu3 W0KnKuw4JNOigQhdRO7wmNJy ZGlu Wd3rcHpigNhoTV6eXANeqkab f760OdEnc1roPNWjnQFePYjz EKT0J37wj1N2YBMoSADzMVJ5 dGV4 uQ1fkDcqucxllWXbnVrywqBp hSvvHZyzCHzvB637FVEmfCgy YbQnHYw6T0QwBco2KTVxgQpi ZT0n xZTkXUzlDy0ryWcwwGuqSM9e OXJqtunxe499MhIcg5sfIVZu qDQdOSqiSVO0K21py7N2IVYf MDAw RFQ3gEE8mH2pzSkiheruqAKx aXmxcjVinWigOAuwSKecF368 PFYvcVwcOwIbsOg0J7EsJry7 ZCBz dXpdAP6lnXQaRRkuJi2tvScl wZyeRK0gWUOqcduca803OoAa n6qbFFTkiNUlVEyqPSU9W17c b3I6 TXCtJTXtTXV4zZD0cP5smJys bjogbGVmdDsgdmVydGljYWwt PDdlL400GUUnjMnrXkRxgQxl bnQg JNxcJKp3P9UqXeyeyMR+PC90 HMXuYZ31pJFckKFed6fqeJo2 GsJcSJYkFZV5zNlsDPmks6Lv ZXIt E48rmJWhh2G9OZOoyHjcmEBo RdXciHK4mQ1qHNrezimin5pj moasTfbrw5orra81iW23E54n IHdp EKQqMBYkUAGnETPacTvpqt3j yN9eVe0+ZKVdkWI0pSM0pB0k KMIiZfY3XDwwK553JcUcdJPp Pjxj c7hxy5lomWn1XnY2XEZaglCn sLkzWKA5g0FlIl95D10hRCfu AYWqLETiVWSdSXUycZzwbx2w dG9w Ii8+ZQPjdOQ8dRT6eB4nHpQm PdU0NBqsQ866HoYiwZRdYpwn P56tV1LzmYX+ZDAkQte3GGZr dHls SP4moZRiGPjaOh7sBPQ4CsEo PuFkZSeiV7YmYWAkrcxdcjsp dBA9EYMwWGTisN82Iy2xbLxq MTBw vINDgJ9zwfoxi8emxpkwOnIf LVXnEEx2MFv9AULuoDcrAoWg OIC3EfZ8PXX7hZNlwX6ioQaj bjog aH8xE8NhXYHandogAu66mH3b EhXrGqB0BGlhAmn+M9eUG54R VYMYX1xRCYm1F0MhJmd5EWJp dHls TQ4qxGMvSMrmGi5iwSlvpJuc RR5cWIGlffbrBTQvpG2kSTJy iCXocPeuYZ8wDPEhppwai217 OiAx FQF3ESUbmTRhX7LxzD3pEbCq HFEeDORnK9TvpSGyXUjdV596 XBamWeY8ZCEuqzVuG8AyQDQi aWdu ShH7u0E4Eo2rOA9aSH4nLUK3 GJ28HO28iQFqy3Y9zEL5M8Ey YRRwdhctpvbrwOK1NXDqDUMk aW47 nXOgMYtlRb4hd0U5m224ZFJs JMCeeO92Jt5zvTifZFTazCEB mJ5ewnhbs5rvepimMjWtSDUx MDt0 YNb3RBCamCwdCtXbMTQ8MbO4 VVR1nTZlnY6rjEkdrmdruA5e Oyc+XbguCLZzhjF3I3RyEue4 ZCBz gSznOL3wdABoFNzbJp8arNyy vUavOZ7sMKIbbwrrIFYjiI5b FEElyGIueSwiTL4nISVrkoxm b250 HlGuCTJ9BVTatMZdV5YreL9q VuUyDTNrKIBiB0UjgOZxMQcn H908DGpiCqK4UBWfsbRuJ6Lo LWFs aMqmBtX8x9E4Xb6GNPsNAG65 YE66dRQvf0Y4yHQ3Y5VzRNWs ifdmqelaxCP5ISBdXCCgoH42 cGFk XCdwQf2gd7E5h803FWNsXOOg xQ95Ms6sdWrrFJUmoOZUqX4i aaywq5gvvgzbTuJeCFAxZEq7 ZXh0 UXMjyHvtLaIxZRN3UyY0MCV6 mPBsuW6isPirrrcttL4xLpb+ EB1knaffabQ6NU14KW45O7Kn Pjwv dGFibGU+PHRhYmxlIHdpZHRo GCdhKCUuVvWpqXnmJR1fDv5q HOLdVJTkbTwjgTUmInBkv2kk YXBz FVwxVK9glMqxT7EjjZQ4MVJw c8t4Cd50U42oK9PldDL+PGNv xGN3tYT8kJ5eZoQsBmP3HWxz Z249 YwOtkTDeNytrf3dnc1aprMy2 TyAaOZBgxiNwsNnzXGS4c7Bv La36P72lFHthCXXaQRRgRUNy IHZh pIdiqr4vgM7mGy0+PGNvbCB3 dCJ1nY4kVdXcYaW2CIqkI810 HuKagTVcFgzvT23rL2XbjDH+ PHRy Emq7USGaqQhyDR7buNTfJQry Kg0cVCR6EuLnKmQlHGawF1Td GSEazjuflztwpZW7DQLbNMCc aW47 Wv5lsBpwDj9rJLJyLJJ5DHLl iSWvT7GffB8zTyZjTZGcCCEa H1JovPWmKSihL036RXcpMmM9 IHZl tiIuL5MrGPQqoZxbIfS3t5S2 Kd2NfJakvQSdPP4uApXgNUo6 R2JxReu4GTHbySniAU5htEWc ZGlu Ba9lhGewyEffNY4dFBJbrlno w170GuFdx8leIBDgtXMsXYpr DHK4N00ts3Y3NWVzMMYwABQ2 dGV4 nC1kuQtlyygojKGhgLvmxtCo wSgbIWzgMCiuV978EOOviHqw DmUAJix0L2DlQil7EALitKap ZT0n vFJoOOrpZn1ncDonnOllJP5g IROovqnfh400PhZyj1gkIKYq gADpBHjlPMS5B43nt9N8HAGa MDAw AIU0uYK7jZ4nuXejoguiwFWt sRuobvBsmPaoSKcjBSciV834 XROsvStoVx9VQhh8M0AbFzz0 ZCBz aLjcLM4ipNGcJPblWh1gjBxz gTnqTL2uNUPvrnaqt059FmGl e9urZRBsoFGcBXagBHU1E71w b3I6 HRMmCYCeXTO3uAV1dW5fnGxx bjogbGVmdDsgdmVydGljYWwt BQymD039ERGpoAeoYbVqyJXs Ojwv dGQ+YA86dc00A3YjHdwxPsp8 OIYkMOC0jCH5qE7wJETrUGqj k0T0pZP6H1GikfKeos7xu5nf YXBz ZTo (more content not included)... [facility] ED Note-Physicianon 11-04-19 ED Note-Physician [id number] 1022 [id number] F Normal [facility] RAD - CT Reporton 11-04-2023 RAD - CT Report [id number] [id number] F Normal [facility] Patient Educationon 11-01-19 Patient Education Urology Kidney [...] these instructions at home: Medicines ? Take zzee-rbj-zdsqdsu and prescription medicines only as told by [...] provider. Document Revised: 05/28/2022 Document Reviewed: 05/28/2022 [employer] Patient Education ? 2022 [employer] [facility] Urology Office/Clinic Noteon 11-01-2023 Urology Office/Clinic Note Chief Complaint nephrolithiasis HPI Staff F/u to have drain removed following perc drain placement at [place]. Previous dx of nephrolithiasis, BPH with urinary obstruction, hypogonadism and organic impotence. Dutasteride 0.5mg QD. Cysto, left pyelogram, left ureteral dilation, ureteroscopy, stone basket extraction, pyeloscopy, laser lithotripsy of left ureteral and renal calculi and stent placement done 10/17/23 at [facility]. Dysuria: no Incomplete bladder emptying: no [...] surgery patient developed pain and presented to [facility]. Ct scan showed fluid collection. Dr. Harrell was called and requested patient be transferred to or [facility] for drain placement since there is no IR locally. [facility] patient [facility]. Patient had drain placed last saturday, [...] is leaving for vacation 11/14- 11/20 to [place]. Will cameron to do surgery upon return [...] Pa (more content not included)... Normal [facility] Comment on above: Result Comment: Elec tronically Signed By: Julio FORBES MD\.br\Date and Time Signed: 11/01/23 16:10 EST\.br\Electronically Co-Signed By: Corie Skaggs\.br\Date and Time Co-Signed: 11/01/23 15:25 EST Coding Summaryon 10-30-2023 Coding Summary HTMLBase 64 KsyxihnlBNh1oFu+PGhlYWQ+ ET8ZDTQsC66cjGHmaI7lO3ER TElOSywgQVBQTElOSyIgbmFt VE0xkHBkNVEz IC8+CV2tUTQrLafhpFJic3M0 nXF9Q57uhs9lAFgphAN3TUYx XzMcbqduq9ynfHl6SVvbDzlt OyBt GMRflF51ZRP8tV56Fh54sEKn wHNfg9crbDr7WdKhQDGnGRS3 nMpeVDtzp1EaXXGuA36keVOb c2U6 MXHqbGtxrRBiLaZuyZP8uI6k GVpkfklvi2vuasqiSpo8oe30 rPEcb5T3jBH7N3OmguQ3ZXLk bGQg VeomjNRFhN9szbwrv1rpzqtg UoYsAETzNDl5CZv9OTTgrZoq GqQxRJ05MBR4HGCgnnBvM3St LWFs eXyeCiW2x6K5Sw2CF7YJNyqt X8EUYMTXPYcgcYJ+TM98vv42 U3EbXehqBrf2LQNsNFW8xIE2 aD0n BCGmTXbhh1A1fIY5R3ToolEc qw6uw9ucROAqZTtkR45asGMr e6F4DTEglDB7ZFWquHrcYnBl aG93 Oyc+YYXmcCfcx2TxArmjx5qb g0gaeAq4EjiyKSBgecUerJht JYM7h3SnEr6tYUPlsQP4bXL8 aD0i AvCpZlY4XHtpO620OyUnqXIv SczlM99cR4VhaJK+PHRyPjx0 JOZtdYdgEI0oL5NwUTBexmwk bGVm kGikVC9eJSJpiszcAKOvvO3t QODpG6j3FtJmLcE7VFtgV0Uw RPAuphwpIr70vT2yBxJoXpP5 MGlu F0AvgkC2HSZqnMMkWYaxCLM4 K22ff0C1EYBsXAIdRZV7fVY4 jY7uiEqzftaxpIBjeXzlssUy dGlj KFwhIHahT099SPTthQjrXdVl ZGluZyBEYXRlOiAgMDEvMjQv MjAyNDwvdGQ+HRHjKKT2hKku PSAn oDPbJGkeQm9cgFziuUhvQZ2f IOKkenvsUHWcxG4oIWSahBQh gLklXQ2vZCGkjabku658TyVv MHB0 JTVkuETwK8QjmD8kBiAmATAl LZRaE5DstUUqAAjjS120EZsg WoZ1KEKjtmFiX9YqDQDhoWou OiB0 z8F5Pl0Zr7SnfbnvF9RmyVIh JyMtJjonCGr8N2RdIxlaaGL+ HS24YNOjGT16CLa2EJH6gBqe PSdi DHWjG1WbaR0eQdZpZJLpJIZp Oyc+PHRhYmxlIHdpZHRoPScx GOZzFtPqpRxvZT4aLq2oIDPn LWNv mLbsdUNnVaWzc5tqSHSaFWly OM9xjZccC1AinZV2HXTfj8r0 Ln75V74uY2WrtJI+PGNvbCB3 aWR0 fQ5hDdYwLzM9BXvkM418FjYl eEKhBosew1ato2lytUu3GzN6 JELgehVnlOnuBSQ8b5EyVe45 Y29s IHdpZHRoPSIxNSUiIHZhbGln kh0rbE3jIm2+ZHFcaZG0mUA1 kL4wQjLaCeQ9KDpfC054LtNn cCIv Azplg8amf8oiuYs9LjTsQJTq tdCwgAabSRF0h7WrPy40K7Lu wUqjx6LtDet0sf41qBWlz5Q3 bGU9 B4TgTPCxeqlcgCYnoIekRE8x CSHmvpzvVJHxeH5rIAUpM9n4 EcElYxT3CLduE4QntqV9IYSy bGQg YQIdqKGLeH9upogtm5sqyiky SdLvRKFwMMn8IZi5HRPtqDmo LiFbTRE1JcE3SAY4fYWyrS3a bGln feuysE3eJkf+UVT5mNTqbBLV QH8jAplbiKY+KCTrRDM2aEca JVocCKUgrU1kJMPnF6k1PrIw LjA1 FHdsR3KawuN9KURrdNNfDQZb wENRwY8hvnomc5anmfmoQkOd EZQuTMz0WOk0ZXJrtPbcQzPg ZWZ0 XeQ9EZX1kWUbiF3wjUgzkwme fR5yAda+VnhlqIivTVR1TJw9 W1AyUau4HZAslVbpDP9jyNMt ZGlu La7rmLryuYxoNC8kURPefqdp x899WmLcx9mmSMIylKYlXVyl HMP9L55dk1U7VRDqFPBdENO3 dGV4 iO4cvJuezvycmWMoaIhupyEt kWemGLolPRbsJ720QVLrjEqw JoNkDTb5Q7IfKbx6JUUcrRxi ZT0n bDNdWTzeOz2buKkuqYbxVP3e MMYlrmfyn146SxDey0emHBVp pDVkNUdmXTM5T17ot8V1MTLp MDAw IYX5pGY9oF2fiUzrhloatDWs oCwlgmIxdOnfGUvoOZpfO633 WYGwbKleGeIyqJh1B6XdSsx5 ZCBz nLfxCT6jrOIeSOgoIt9dyTfn oVttBK0qZDZvmtcyt294PoZf p9soOPTssGAyEAowCBJ6N77q b3I6 TFNuTPZkYSZ6fRF8zR6rdXgb bjogbGVmdDsgdmVydGljYWwt VVnuH479HFInvBfrFwFxqTwj bnQg VQopUAs1I7NjQlndgYB+PC90 DCZmEV00pNNovPQch9ablMp2 LxFcHEEfCSF0hFwsIPlev5Pd ZXIt J46ucJWxz4W2BDFhkHlimZPt CxRhwZH6fF9lPJnihnvvw4ab wkilKgpch3qrds76iL38Z61t IHdp WSNjTMZrBJAzGLUvqKjjvy0h mI4uDm9+BLQapFR9oXN4hQ0u MUVgDaY4GMcuC231SwBpeCXy Pjxj f8dbi1fsfGs6XcU6WYYdtbWz bDfqMNL7g9ImGz29P68xPGhn ZSCwBXJwDSJsPWDjyXpscd1d dG9w Ii8+YBDmrQY6jZN9hU8aDkHq FzP9JCdrX969RbVmgLZtRopp F72mQ2ImsBT+FVVzSit5ORMd dHls MR7dfCDxQLdzMe2uFAZ7YqRr LrEyINcdL3OqHMNpatcwkjno zNW7YMQaZUCsdX04Hd5ziNaz MTBw hXDIiG3hupmzt5pdfrjxOzJv DYOoLHt4FXh5DSOzdWxqIyGh MUP8DkX0RLA0tKSuzF8dlEvl bjog pQ1sC0KrLJJboyzsXe38jW5y KjLkQiP9QYbyFjo+V1gVR59D WAWLD4jPKNx1P2UoYmc7HYGc dHls WO8gqDCoJIjjTu1ntFnhoLth QH0iMKWlziidJDVbnG9yWAVt vZKviNwbCO8fNMNisopgy162 OiAx IPN3DEFuhSVgB1QdgX3nQdTc WXBnSNXmA3SblOPuWSzzF383 QQmpTrT1IYAlwtJkX4CaZHSo aWdu OyU5c9S7Ep4xCE4lIL3sZFP4 RH49FS44cFEmr4X2hOA4M4Aq TNKfheszmblrlOM7QNXhZPKa aW47 jIBiCGgnCl3ne0S2e526EZEf PXMffQ63Ds7qrPbzHPIviGTB zX9zqohdm4arymgfLzMkOEFv MDt0 OXr0KQPskPutSlYiTHZ6JgD9 CGC9dTMtzG0bmXvwkowhfZ5o Oyc+UnlvVLDzveB4O5FsFce7 ZCBz cZnuMH0ctNTtMFuaSt7caYuk iOrnLC5zKFLovqmdRWQgkE1b ZUMjfRGorKvfJA7dPHNhpanu b250 OyKpCZM1QLOvsARoD8XpbY3d ItXrIXPgTWHaA3PlfILmWZbu U282EKmmHyI8MZQpcfZoL8Bk LWFs rHfcBiV3b8M5Ev4EBSbOXX27 KN43mUVrq0W9aZM7A0BaNLDx xoipkzoaiYH7PUNkUJXicZ82 cGFk ZErxDv7yn1E2s000AFHdCUYj mI88Os6qfZutRJIkkOAOaN4y hyowq1hqpbsqJbThDITsXCm3 ZXh0 VQLpxRkzGoIdCOE7XmR7QCP6 nSBocO3oiHnlbsmavQ8sDit+ JH5hqpncvbX4HD75CG27S4Dv Pjwv dGFibGU+PHRhYmxlIHdpZHRo MQhwVERtNnEiiAknDV0jFc3l SYToRNZrsVecpUKaUqSxj9cp YXBz BKryWO5jvWozE6HxnEN4RKOr n9e0Ny53G65hA4BctXJ+PGNv kJV1fSW5eJ1iYqTpUkZ6OYsg Z249 VnFhsCEeExhmp6xmg8dctYg2 QmQwCFZgbmXadDdjEWN2f9Eg Ip65J00cZHvhWPFrVFNvTIDa IHZh fUgoij0paG2kGn7+PGNvbCB3 rYF5mM2rCyZfPoI4HNhuX745 OePnrTKyGpagJ05zE3CfgVF+ PHRy Eoz9LZLkpIgpFH2ntCQiCFde Ws0mEQM2YkCyTgQwWIesQ1Db AWPkmbwrnwugkTJ7BGPeAWXf aW47 Cn3liBftYc6sIRWnHYZ4OHCn yERdO1PccM4rOsCpCCRdHKYm X6RpxQCeQEriX785KOcmOtC2 IHZl vwUjU1FqVNSolBvoRyY2y9I9 Ls4AzSqulSSaUV5yXfVxZQd9 S7BjGei7ITOklZsoDV1kuJFb ZGlu Yt6zeMmrgUozFI4fESLhsqtv v392HgUfi6olJFOuzXBsMMts GIA3H91vc5T3JGSaJNIzLRV9 dGV4 gA3deJlxheqybNQasLnwprYa zKetSFhzQDtvG279IVUzoFfs GdHVImu2H1DzScz8XCGuhOdi ZT0n qRPpEJqwZe2ulHkqpUhtMU8q RMAaiqvcx891NhOnf5ulJSKe eULjDJhxXZZ3X39tf7R8MKLg MDAw AMT9jXB1jB7zaNenxozzxDWd vDafykUjoTomAGxdYRvoW319 MXPebFdqVe3YLpv7N3ZxVvl6 ZCBz qYhtDL8jfRAzGVftBk4fjGfr dZpiKS6nNNMpbffeb250IyZo r4wpSIOqvRUzNCuoFHY8N19k b3I6 LCTmIIEdBNV4aPK4cT1obPre bjogbGVmdDsgdmVydGljYWwt NRozJ333YKWahRjlJiKniWXc Ojwv dGQ+MT83oa14O0WxAmsbPdr1 SSDfLNM4nUH8xM5wUXUuWAet f0Z4iFZ2N8LhkaGsut4te2hk YXBz ZTo (more content not included)... [facility] Blood 10-29-2023 C Blood No growth at [address] [facility] Comment on above: Performed By: #### 5 [id number], [id number], [id number], [id number] #### [facility] (DEFAULT) [address] [place] [address] C Blood 2nd site 15 minutes after [...] 8 Verified Tobra S <=4 Verified Tri/Sulf >2/38 Verified Normal [facility] Comment on above: Performed By: #### 5 [id number], [id number], [id number], [id number] #### [facility] (DEFAULT) [address] [place] [address] BASIC METABOLIC PANLon 10-27 Anion gap [Moles/Vol] 10 mmol/L Normal 5-15 [facility] Comment on above: Performed By: #### C ALLEGRA MCCARTNEY, 91714-0, CMP #### [facility] ([id number]) [address] [place] [address] Calcium [Mass/Vol] 7.5 mg/dL Low 8.5-10.5 [facility] Comment on above: Performed By: #### C ALLEGRA MCCARTNEY, 17808-7, CMP #### [facility] ([id number]) [address], [address] [place] [address] Chloride [Moles/Vol] 107 mmol/L Normal 98-109 [facility] Comment on above: Performed By: #### C BCA, PINR, 80345-2, CMP #### [facility] ([id number]) [address], [address] [place] [address] CO2 [Moles/Vol] 24 mmol/L Normal 22-32 [facility] Comment on above: Performed By: #### C BCA, PINR, 64843-2, CMP #### [facility] ([id number]) [address], [address] [place] [address] Creatinine [Mass/Vol] 0.72 mg/dL Normal 0.60-1.30 [facility] Comment on above: Result Comment: METH OD TRACEABLE TO IDMS STANDARD Performed By: #### C BCA, PINR, 33178-2, CMP #### [facility] ([id number]) [address], [address] [place] [address] eGFR (CKD-EPI) NON-RACE DEPENDENT >90 Normal >59 [facility] Comment on above: Result Comment: Reported eGFR is based on the CKD-EPI 2020 equation that does not use a race coefficient. Performed By: #### C BCA, PINR, 33838-1, CMP #### [facility] ([id number]) [address], [address] [place] [address] Glucose [Mass/Vol] 83 mg/dL Normal 65-99 [facility] Comment on above: Performed By: #### C BCA, PINR, 76244-2, CMP #### [facility] ([id number]) [address], [address] [place] [address] Potassium [Moles/Vol] 3.4 mmol/L Low 3.5-5.0 [facility] Comment on above: Performed By: #### C BBI, PINR, 25190-8, CMP #### [facility] ([id number]) [address], [address] [place] [address] Sodium [Moles/Vol] 141 mmol/L Normal 134-146 [facility] Comment on above: Performed By: #### C BIB, PINR, 46085-1, CMP #### [facility] ([id number]) [address], [address] [place] [address] Urea nitrogen [Mass/Vol] 10 mg/dL Normal 5-27 [facility] Comment on above: Performed By: #### C BIB, PINR, 86858-3, CMP #### [facility] ([id number]) [address], [address] [place] [address] CBC AND AUTO DIFFon 10-27-19 24 ABSOLUTE BASOPHIL 0.0 X10E9/L Normal 0.0-0.2 [facility] Comment on above: Performed By: #### C BIB, PINR, 70113-8, CMP #### [facility] ([id number]) [address], [address] [place] [address] ABSOLUTE NEUTROPHIL 4.8 X10E9/L Normal 1.5-6.6 [facility] Comment on above: Performed By: #### C BIB, PINR, 12148-7, CMP #### [facility] ([id number]) [address], [address] [place] [address] Basophils/100 WBC (Bld) 0.5 % Normal [facility] Comment on above: Performed By: #### C BIB, PINR, 43067-9, CMP #### [facility] ([id number]) [address], [address] [place] [address] Eosinophils (Bld) [#/Vol] 0.2 10*3/uL Normal 0.0-0.4 [facility] Comment on above: Performed By: #### C BIB, PINR, 45270-6, CMP #### [facility] ([id number]) [address], [address] [place] [address] Eosinophils/100 WBC (Bld) 2.1 % Normal [facility] Comment on above: Performed By: #### C BIB, PINR, 96548-4, CMP #### [facility] ([id number]) [address], [address] [place] [address] Erythrocyte distribution width (RBC) [Ratio] 13.5 % Normal 11.5-15.0 [facility] Comment on above: Performed By: #### C BIB, PINR, 60445-2, CMP #### [facility] ([id number]) [address], [address] [place] [address] Hematocrit (Bld) [Volume fraction] 43.8 % Normal 39-49 [facility] Comment on above: Performed By: #### C BIB, PINR, 56290-9, CMP #### [facility] ([id number]) [address], [address] [place] [address] Hemoglobin (Bld) [Mass/Vol] 14.4 g/dL Normal 13.0-17.0 [facility] Comment on above: Performed By: #### C BCA, PINR, 41577-1, CMP #### [facility] ([id number]) [address], [address] [place] [address] Lymphocytes (Bld) [#/Vol] 1.5 10*3/uL Normal 1.0-3.5 [facility] Comment on above: Performed By: #### C BCA, PINR, 40671-0, CMP #### [facility] ([id number]) [address], [address] [place] [address] Lymphocytes/100 WBC (Bld) 20.4 % Normal [facility] Comment on above: Performed By: #### C BCA, PINR, 21664-5, CMP #### [facility] ([id number]) [address], [address] [place] [address] MCH (RBC) [Entitic mass] 29.4 pg Normal 27-34 [facility] Comment on above: Performed By: #### C BCA, PINR, 92563-9, CMP #### [facility] ([id number]) [address], [address] [place] [address] MCHC (RBC) [Mass/Vol] 32.9 g/dL Normal 32-36 [facility] Comment on above: Performed By: #### C BCA, PINR, 80648-2, CMP #### [facility] ([id number]) [address], [address] [place] [address] MCV (RBC) [Entitic vol] 89 fL Normal 80-100 [facility] Comment on above: Performed By: #### C BCA, PINR, 75150-8, CMP #### [facility] ([id number]) [address], [address] [place] [address] Monocytes (Bld) [#/Vol] 0.9 10*3/uL Normal 0-0.9 [facility] Comment on above: Performed By: #### C BCA, PINR, 19875-5, CMP #### [facility] ([id number]) [address], [address] [place] [address] Monocytes/100 WBC (Bld) 12.3 % Normal [facility] Comment on above: Performed By: #### C BCA, PINR, 00720-8, CMP #### [facility] ([id number]) [address], [address] [place] [address] Neutrophils/100 WBC (Bld) 64.7 % Normal [facility] Comment on above: Performed By: #### C BCA, PINR, 82616-0, CMP #### [facility] ([id number]) [address] [address] [place] [address] Platelet mean volume (Bld) [Entitic vol] 8.7 fL Normal 7-12 [facility] Comment on above: Performed By: #### C BCA, PINR, 05330-0, CMP #### [facility] ([id number]) [address] [address] Platelets (Bld) [#/Vol] 304 10*3/uL Normal 150-450 [facility] Comment on above: Performed By: #### C BCA, PINR, 16799-3, CMP #### [facility] ([id number]) [address] [address] RBC COUNT 4.90 X10E12/L Normal 4.10-5.70 [facility] Comment on above: Performed By: #### C BCA, PINR, 51126-9, CMP #### [facility] ([id number]) [address] [address] WBC (Bld) [#/Vol] 7.3 10*3/uL Normal 4.0-11.0 [facility] Comment on above: Performed By: #### C BCA, PINR, 88963-1, CMP #### [facility] ([id number]) [address] [address] ED Note-Nursingon 10-27-2023 ED Note-Nursing Spoke with Teressa from the lab, took positive preliminary blood culture result. This patient was transferred to [facility] ED on 10/24. This RN called [facility], spoke with Ruba BOWMAN, patient is located on Floor Gen 2, patient is now located in room A237. Fax #[phone]. This RN faxed preliminary results, informed Ruba from [facility] that we will send final results when they come, Ruba agreeable. Normal [facility] POTASSIUMon 10-27-2023 Potassium [Moles/Vol] 3.7 mmol/L Normal 3.5-5.0 [facility] Comment on above: Performed By: #### C BCA, PINR, 80156-2, CMP #### [facility] ([id number]) [address], [address] [place] [address] BASIC METABOLIC PANLon 10-26 Anion gap [Moles/Vol] 14 mmol/L Normal 5-15 [facility] Comment on above: Performed By: #### C BCA, PINR, 71897-6, CMP #### [facility] ([id number]) [address], [address] [place] [address] Calcium [Mass/Vol] 7.8 mg/dL Low 8.5-10.5 [facility] Comment on above: Performed By: #### C BCA, PINR, 00367-2, CMP #### [facility] ([id number]) [address], [address] [place] [address] Chloride [Moles/Vol] 103 mmol/L Normal 98-109 [facility] Comment on above: Performed By: #### C BCA, PINR, 36051-0, CMP #### [facility] ([id number]) [address], [address] [place] [address] CO2 [Moles/Vol] 20 mmol/L Low 22-32 [facility] Comment on above: Performed By: #### C BCA, PINR, 48665-5, CMP #### [facility] ([id number]) [address], [address] [place] [address] Creatinine [Mass/Vol] 0.84 mg/dL Normal 0.60-1.30 [facility] Comment on above: Result Comment: METH OD TRACEABLE TO IDMS STANDARD Performed By: #### C BCA, PINR, 57741-0, CMP #### [facility] ([id number]) [address], [address] [place] [address] GFR/1.73 sq M.predicted among non-blacks MDRD (S/P/Bld) [Vol rate/Area] 89 mL/min/{1.73_m2} Normal >59 [facility] Comment on above: Result Comment: Reported eGFR is based on the CKD-EPI 2020 equation that does not use a race coefficient. Performed By: #### C BCA, PINR, 90368-1, CMP #### [facility] ([id number]) [address], [address] [place] [address] Glucose [Mass/Vol] 73 mg/dL Normal 65-99 [facility] Comment on above: Performed By: #### C BCA, PINR, 11777-4, CMP #### [facility] ([id number]) [address], [address] [place] [address] Potassium [Moles/Vol] 3.9 mmol/L Normal 3.5-5.0 [facility] Comment on above: Performed By: #### C BCA, PINR, 39715-9, CMP #### [facility] ([id number]) [address], [address] [place] [address] Sodium [Moles/Vol] 137 mmol/L Normal 134-146 [facility] Comment on above: Performed By: #### C BCA, PINR, 55202-0, CMP #### [facility] ([id number]) [address], [address] [place] [address] Urea nitrogen [Mass/Vol] 14 mg/dL Normal 5-27 [facility] Comment on above: Performed By: #### C BCA, PINR, 30045-5, CMP #### [facility] ([id number]) [address], [address] [place] [address] C Urineon 01-20-2024 C Urine Urine Culture ordere d as [...] <=4 Verified Tri/Sulf S <=2/38 Verified Normal [facility] Comment on above: Performed By: #### 5 [id number], [id number], [id number], [id number] #### [facility] (DEFAULT) [address] [place] [address] CBC AND AUTO DIFFon 10-26-19 24 Band form neutrophils/100 WBC (Bld) 1.0 % Normal [facility] Comment on above: Performed By: #### C ALLEGRA MCCARTNEY, 64440-6, CMP #### [facility] ([id number]) [address], [facility] [address] [place] [address] Erythrocyte distribution width (RBC) [Ratio] 13.5 % Normal 11.5-15.0 [facility] Comment on above: Performed By: #### C ALLEGRA MCCARTNEY, 60443-0, CMP #### [facility] ([id number]) [address], [address] [place] [address] Hematocrit (Bld) [Volume fraction] 43.6 % Normal 39-49 [facility] Comment on above: Performed By: #### Mian MCCARTNEY PINR, 19423-9, CMP #### [facility] ([id number]) [address], [address] [place] [address] Hemoglobin (Bld) [Mass/Vol] 14.4 g/dL Normal 13.0-17.0 [facility] Comment on above: Performed By: #### C BIB PINR, 76538-3, CMP #### [facility] ([id number]) [address], [facility] [address] [place] [address] Lymphocytes (Bld) [#/Vol] 0.8 10*3/uL Low 1.0-3.5 [facility] Comment on above: Performed By: #### Mian MCCARTNEY PINR, 00841-6, CMP #### [facility] ([id number]) [address], [address] [place] [address] Lymphocytes/100 WBC (Bld) 6.8 % Normal [facility] Comment on above: Performed By: #### Mian MCCARTNEY PINR, 67447-5, CMP #### [facility] ([id number]) [address], [address] [place] [address] MCH (RBC) [Entitic mass] 29.9 pg Normal 27-34 [facility] Comment on above: Performed By: #### Mian MCCARTNEY PINR, 26266-7, CMP #### [facility] ([id number]) [address], [address] [place] [address] MCHC (RBC) [Mass/Vol] 33.1 g/dL Normal 32-36 [facility] Comment on above: Performed By: #### Mian MCCARTNEY, PINR, 42690-3, CMP #### [facility] ([id number]) [address], [address] [place] [address] MCV (RBC) [Entitic vol] 90 fL Normal 80-100 [facility] Comment on above: Performed By: #### Mian MCCARTNEY PINR, 54267-5, CMP #### [facility] ([id number]) [address], [address] [place] [address] Monocytes (Bld) [#/Vol] 0.5 10*3/uL Normal 0-0.9 [facility] Comment on above: Performed By: #### Mian MCCARTNEY PINR, 34374-0, CMP #### [facility] ([id number]) [address], [address] [place] [address] Monocytes/100 WBC (Bld) 4.9 % Normal [facility] Comment on above: Performed By: #### Mian MCCARTNEY PINR, 10412-2, CMP #### [facility] ([id number]) [address], [address] [place] [address] Neutrophils (Bld) [#/Vol] 9.9 10*3/uL High 1.5-6.6 [facility] Comment on above: Performed By: #### RICHIE Pappas BCAR, 30067-2, CMP #### [facility] ([id number]) [address], [address] [place] [address] OVALOCYTE 1+ Abnormal NONE [facility] Comment on above: Performed By: #### Mian MCCARTNEY PINR, 65141-9, CMP #### [facility] ([id number]) [address], [address] [place] [address] Platelet mean volume (Bld) [Entitic vol] 8.3 fL Normal 7-12 [facility] Comment on above: Performed By: #### Mian MCCARTNEY, PINR, 39393-1, CMP #### [facility] ([id number]) [address], [address] [place] [address] Platelets (Bld) [#/Vol] 265 10*3/uL Normal 150-450 [facility] Comment on above: Performed By: #### C BCA, PINR, 22215-9, CMP #### [facility] ([id number]) [address], [address] [place] [address] RBC COUNT 4.84 X10E12/L Normal 4.10-5.70 [facility] Comment on above: Performed By: #### C BCA, PINR, 27507-2, CMP #### [facility] ([id number]) [address], [address] [place] [address] SEG NEUTROPHIL 87.3 % Normal [facility] Comment on above: Performed By: #### C BCA, PINR, 14717-8, CMP #### [facility] ([id number]) [address], [address] [place] [address] WBC (Bld) [#/Vol] 11.2 10*3/uL High 4.0-11.0 [facility] Comment on above: Performed By: #### C BCA, PINR, 11177-5, CMP #### [facility] ([id number]) [address], [address] [place] [address] CT TRA RADIOLOGIST OVERREADo n 10-26-2023 CT [address]IST OVERREAD CT TRA RADIOLOGIST OVERREAD Outside Study: CT abdomen and pelvis without intravenous contrast. CLINICAL HISTORY: Left lower quadrant pain status post left ureteroscopy and lithotripsy. COMPARISON: None. TECHNIQUE: CT abdomen and pelvis without intravenous contrast.. Initial study performed on 10/24/2023 at [facility] Second opinion was requested by Dr. Quintanilla FINDINGS: Lung bases are clear. The heart size is normal. No pericardial effusion. Moderate to heavy burden of coronary calcifications are included in the ghqax-qx-szcx. There is a moderate-sized hiatal hernia and [...] Galaviz MD on 10/26/2023 8:45 AM Normal [facility] ED Note-Nursingon 10-26-2023 ED Note-Nursing Patient urine called to [facility]. Faxed to [phone]. Normal [facility] MAGNESIUMon 10-26-2023 Magnesium [Mass/Vol] 2.3 mg/dL Normal 1.8-2.6 [facility] Comment on above: Performed By: #### C BCA, PINR, 13173-8, CMP #### [facility] ([id number]) [address] [place] [address] ASPIRATE CULTUREon 4 Bacteria identified Aer cx Nom (Asp) GRAM [...] <=4 F TOBRAMYCIN S <=1 F Susceptible [facility] Comment on above: Performed By: #### C BCA, PINR, 69703-8, CMP #### [facility] ([id number]) [address], [address] [place] [address] BASIC METABOLIC PANLon 10-25 Anion gap [Moles/Vol] 10 mmol/L Normal 5-15 [facility] Comment on above: Performed By: #### C BCA, BMP, , 2776-, THYR, PINR #### [facility] ([id number]) [address], [address] [place] [address] Calcium [Mass/Vol] 8.0 mg/dL Low 8.5-10.5 [facility] Comment on above: Performed By: #### C BCA, BMP, , 2776-10, THYR, PINR #### [facility] ([id number]) [address], [address] [place] [address] Chloride [Moles/Vol] 104 mmol/L Normal 98-109 [facility] Comment on above: Performed By: #### C BCA, BMP, , 2776-10, THYR, PINR #### [facility] ([id number]) [address], [address] [place] [address] CO2 [Moles/Vol] 23 mmol/L Normal 22-32 [facility] Comment on above: Performed By: #### C BCA, BMP, , 2776-10, THYR, PINR #### [facility] ([id number]) [address], [address] [place] [address] Creatinine [Mass/Vol] 1.00 mg/dL Normal 0.60-1.30 [facility] Comment on above: Result Comment: METH OD TRACEABLE TO IDMS STANDARD Performed By: #### C BCA, BMP, , 2776-, THYR, PINR #### [facility] ([id number]) [address], [facility] [address] [place] [address] GFR/1.73 sq M.predicted among non-blacks MDRD (S/P/Bld) [Vol rate/Area] 77 mL/min/{1.73_m2} Normal >59 [facility] Comment on above: Result Comment: Reported eGFR is based on the CKD-EPI 2020 equation that does not use a race coefficient. Performed By: #### C BCA, BMP, , 2776-, THYR, PINR #### [facility] ([id number]) [address], [facility] [address] [place] [address] Glucose [Mass/Vol] 87 mg/dL Normal 65-99 [facility] Comment on above: Performed By: #### C BCA, BMP, , 2776-10, THYR, PINR #### [facility] ([id number]) [address] [address] [place] [address] Potassium [Moles/Vol] 4.2 mmol/L Normal 3.5-5.0 [facility] Comment on above: Performed By: #### C BCA, BMP, , 2776-, THYR, PINR #### [facility] ([id number]) [address] [address] [place] [address] Sodium [Moles/Vol] 137 mmol/L Normal 134-146 [facility] Comment on above: Performed By: #### C BCA, BMP, , 2776-, THYR, PINR #### [facility] ([id number]) [address] [address] [place] [address] Urea nitrogen [Mass/Vol] 16 mg/dL Normal 5-27 [facility] Comment on above: Performed By: #### C BCA, BMP, 86064-0, 2776-, THYR, PINR #### [facility] ([id number]) [address], [address] [place] [address] CBC AND AUTO DIFFon 10-25-19 ABSOLUTE BASOPHIL 0.1 X10E9/L Normal 0.0-0.2 [facility] Comment on above: Performed By: #### C BCA, BMP, 81178-7, 2776-, THYR, PINR #### [facility] ([id number]) [address], [address] [place] [address] ABSOLUTE NEUTROPHIL 15.7 X10E9/L High 1.5-6.6 [facility] Comment on above: Performed By: #### C BCA, BMP, 07969-5, 2776-, THYR, PINR #### [facility] ([id number]) [address], [address] [place] [address] Basophils/100 WBC (Bld) 0.4 % Normal [facility] Comment on above: Performed By: #### C BCA, BMP, 09291-1, 2776-, THYR, PINR #### [facility] ([id number]) [address], [address] [place] [address] Eosinophils (Bld) [#/Vol] 0.0 10*3/uL Normal 0.0-0.4 [facility] Comment on above: Performed By: #### C BCA, BMP, 95473-0, 2776-, THYR, PINR #### [facility] ([id number]) [address], [address] [place] [address] Eosinophils/100 WBC (Bld) 0.2 % Normal [facility] Comment on above: Performed By: #### C BCA, BMP, 46178-4, 7-, THYR, PINR #### [facility] [facility] ([id number]) [address], [address] [place] [address] Erythrocyte distribution width (RBC) [Ratio] 13.6 % Normal 11.5-15.0 [facility] Comment on above: Performed By: #### C BCA, BMP, , 2776-10, THYR, PINR #### [facility] ([id number]) [address], [address] [place] [address] Hematocrit (Bld) [Volume fraction] 44.8 % Normal 39-49 [facility] Comment on above: Performed By: #### C BCA, BMP, , 2776-10, THYR, PINR #### [facility] ([id number]) [address] [place] [address] Hemoglobin (Bld) [Mass/Vol] 14.8 g/dL Normal 13.0-17.0 [facility] Comment on above: Performed By: #### C BCA, BMP, , 2776-10, THYR, PINR #### [facility] ([id number]) [address], [address] [place] [address] Lymphocytes (Bld) [#/Vol] 1.5 10*3/uL Normal 1.0-3.5 [facility] Comment on above: Performed By: #### C BCA, BMP, , 2776-10, THYR, PINR #### [facility] ([id number]) [address] [address] [place] [address] Lymphocytes/100 WBC (Bld) 7.9 % Normal [facility] Comment on above: Performed By: #### C BCA, BMP, , 2776-10, THYR, PINR #### [facility] ([id number]) [address], [address] [place] [address] MCH (RBC) [Entitic mass] 29.2 pg Normal 27-34 [facility] Comment on above: Performed By: #### C BCA, BMP, 96327-8, 2777-1, THYR, PINR #### [facility] ([id number]) [address], [address] [place] [address] MCHC (RBC) [Mass/Vol] 33.0 g/dL Normal 32-36 [facility] Comment on above: Performed By: #### C BCA, BMP, 95561-1, 2776-, THYR, PINR #### [facility] ([id number]) [address], [address] [place] [address] MCV (RBC) [Entitic vol] 89 fL Normal 80-100 [facility] Comment on above: Performed By: #### C BCA, BMP, 59460-6, 2777-1, THYR, PINR #### [facility] ([id number]) [address] [place] [address] Monocytes (Bld) [#/Vol] 1.3 10*3/uL High 0-0.9 [facility] Comment on above: Performed By: #### C BCA, BMP, 67314-5, 2776-, THYR, PINR #### [facility] ([id number]) [address] [address] [place] [address] Monocytes/100 WBC (Bld) 7.2 % Normal [facility] Comment on above: Performed By: #### C BCA, BMP, 68265-0, 7-, THYR, PINR #### [facility] ([id number]) [address], [address] [place] [address] Neutrophils/100 WBC (Bld) 84.3 % Normal [facility] Comment on above: Performed By: #### C BCA, BMP, 98597-6, 2777-1, THYR, PINR #### [facility] ([id number]) [address] [address] [place] [address] Platelet mean volume (Bld) [Entitic vol] 8.6 fL Normal 7-12 [facility] Comment on above: Performed By: #### C BCA, BMP, , 2776-10, THYR, PINR #### [facility] ([id number]) [address], [address] [place] [address] Platelets (Bld) [#/Vol] 285 10*3/uL Normal 150-450 [facility] Comment on above: Performed By: #### C BCA, BMP, , 2776-10, THYR, PINR #### [facility] ([id number]) [address] [place] [address] RBC COUNT 5.05 X10E12/L Normal 4.10-5.70 [facility] Comment on above: Performed By: #### C BCA, BMP, , 2776-10, THYR, PINR #### [facility] ([id number]) [address] [place] [address] WBC (Bld) [#/Vol] 18.6 10*3/uL High 4.0-11.0 [facility] Comment on above: Performed By: #### C BCA, BMP, , 2776-10, THYR, PINR #### [facility] ([id number]) [address], [address] [place] [address] ABSOLUTE BASOPHIL 0.1 X10E9/L Normal 0.0-0.2 [facility] Comment on above: Performed By: #### C BIB, PINR, 82712-8, CMP #### [facility] ([id number]) [address], [address] [place] [address] ABSOLUTE NEUTROPHIL 17.0 X10E9/L High 1.5-6.6 [facility] Comment on above: Performed By: #### C BCA, PINR, 97323-1, CMP #### [facility] ([id number]) [address], [address] [place] [address] Basophils/100 WBC (Bld) 0.5 % Normal [facility] Comment on above: Performed By: #### C BCA, PINR, 07725-2, CMP #### [facility] ([id number]) [address], [address] [place] [address] Eosinophils (Bld) [#/Vol] 0.0 10*3/uL Normal 0.0-0.4 [facility] Comment on above: Performed By: #### C BIB, PINR, 86727-6, CMP #### [facility] ([id number]) [address] [place] [address] Eosinophils/100 WBC (Bld) 0.1 % Normal [facility] Comment on above: Performed By: #### C BCA, PINR, 16451-3, CMP #### [facility] ([id number]) [address], [address] [place] [address] Erythrocyte distribution width (RBC) [Ratio] 13.3 % Normal 11.5-15.0 [facility] Comment on above: Performed By: #### C BIB, PINR, 10540-4, CMP #### [facility] ([id number]) [address], [address] [place] [address] Hematocrit (Bld) [Volume fraction] 44.6 % Normal 39-49 [facility] Comment on above: Performed By: #### C BIB, PINR, 50881-4, CMP #### [facility] ([id number]) [address], [address] [place] [address] Hemoglobin (Bld) [Mass/Vol] 14.7 g/dL Normal 13.0-17.0 [facility] Comment on above: Performed By: #### C BIB PINR, 07521-3, CMP #### [facility] ([id number]) [address], [address] [place] [address] Lymphocytes (Bld) [#/Vol] 1.6 10*3/uL Normal 1.0-3.5 [facility] Comment on above: Performed By: #### C BIB, PINR, 43761-5, CMP #### [facility] ([id number]) [address], [address] [place] [address] Lymphocytes/100 WBC (Bld) 7.9 % Normal [facility] Comment on above: Performed By: #### C BIB, PINR, 23143-0, CMP #### [facility] ([id number]) [address], [address] [place] [address] MCH (RBC) [Entitic mass] 29.2 pg Normal 27-34 [facility] Comment on above: Performed By: #### C BIB, PINR, 25242-0, CMP #### [facility] ([id number]) [address], [address] [place] [address] MCHC (RBC) [Mass/Vol] 32.9 g/dL Normal 32-36 [facility] Comment on above: Performed By: #### C BIB PINR, 36434-6, CMP #### [facility] ([id number]) [address], [address] [place] [address] MCV (RBC) [Entitic vol] 89 fL Normal 80-100 [facility] Comment on above: Performed By: #### C BIB, PINR, 11779-6, CMP #### [facility] ([id number]) [address], [address] [place] [address] Monocytes (Bld) [#/Vol] 1.5 10*3/uL High 0-0.9 [facility] Comment on above: Performed By: #### C BCA, PINR, 15596-5, CMP #### [facility] ([id number]) [address], [address] [place] [address] Monocytes/100 WBC (Bld) 7.6 % Normal [facility] Comment on above: Performed By: #### C BCA, PINR, 89794-4, CMP #### [facility] ([id number]) [address], [address] [place] [address] Neutrophils/100 WBC (Bld) 83.9 % Normal [facility] Comment on above: Performed By: #### C BIB, PINR, 16879-9, CMP #### [facility] ([id number]) [address] [place] [address] Platelet mean volume (Bld) [Entitic vol] 8.2 fL Normal 7-12 [facility] Comment on above: Performed By: #### C BCA, PINR, 60669-7, CMP #### [facility] ([id number]) [address], [address] [place] [address] Platelets (Bld) [#/Vol] 291 10*3/uL Normal 150-450 [facility] Comment on above: Performed By: #### C BCA, PINR, 41707-1, CMP #### [facility] ([id number]) [address], [address] [place] [address] RBC COUNT 5.03 X10E12/L Normal 4.10-5.70 [facility] Comment on above: Performed By: #### C BCA, PINR, 40467-5, CMP #### [facility] ([id number]) [address], [address] [place] [address] WBC (Bld) [#/Vol] 20.3 10*3/uL High 4.0-11.0 [facility] Comment on above: Performed By: #### C BCA, PINR, 87922-8, CMP #### [facility] ([id number]) [address], [address] [place] [address] COMPREHENSIVE METABOLIC PANE Manuel 10-25-2023 Albumin [Mass/Vol] 3.2 g/dL Normal 3.2-5.3 [facility] Comment on above: Performed By: #### C BCA, PINR, 15759-5, CMP #### [facility] ([id number]) [address], [address] [place] [address] ALP [Catalytic activity/Vol] 52 U/L Normal 39-130 [facility] Comment on above: Performed By: #### C BCA, PINR, 52584-8, CMP #### [facility] ([id number]) [address], [address] [place] [address] ALT [Catalytic activity/Vol] 11 U/L Normal 0-40 [facility] Comment on above: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 [facility] Comment on above: Performed By: #### 5 [id number], 9443550, 8116553440, 2787112 #### [facility] (DEFAULT) [address] [place] [address] 41202 Transfer Noteon 10-24-2023 Transfer Note 193- CALLED [facility] [place], P T SEES DR FORBES AND HAD SURGERY AT [facility]. 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 OFFERED [facility] [place] 2041-CALLED TRANSFER [facility] FOR [facility], THEY ADVISED THEY ONLY HAVE ICU BEDS AND THE FLOOR HAS A BED WAIT. TRIED [facility], PAGED . 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 2119-[facility] MILL OPERATOR CALLED BACK AND [facility] 2126- DR AYON [facility] [place] BACK, ADVISED THEY CANT TAKE PT BECAUSE THEY HAVE IR BUT THEY DONT HAVE IR 2131-CALLED [facility] TO TALK TO DR HARRELL, [facility] CALLED BACK AGAIN TO DECLINE PT 2132-CALLED RADIOLOGY TO HAVE THEM PUSH IMAGES TO PACS SO UROLOGIST COULD REVIEW 2139- CALLED BACK AND DECLINED PT 2143-CALLED [facility] TRANSFER LINE FOR [place], SPOKE WITH PAT AND SHE ADVISED ALL ER ARE HOLDING. ADDED PT TO LIST AND SHE PAGED UROLOGIST. FAXED FACESHEET TO [phone] [facility] TRANSFER LINE 2152-CALLED [facility], PAGED UROLOGY, HAD RAD DISC SENT ELECTRONICALLY 2211-ACCEPTED, TALKED TO ALI AT [facility], PT GOING TO THE ER 2215-CONTACTED [facility] FOR TRANSFER 2229-CALLED [facility] TO CANCEL 2244-[facility] ARRIVED 2254- [facility] LEFT WITH PT ENTIRE CHART AND RAD DISC SENT WITH TRANSPORT TEAM [Electronically Signed on: 10/24/2023 22:55 EST] Annalisa Daniels [Verified on: 10/24/2023 22:55 EST] Annalisa Daniels [facility] UA [id number] 10-24-2023 UA Amorph. Few [facility] Comment on above: Order Comment: Urina lysis Microscopic order added on by Discern Expert Rules system. Performed By: #### 5 [id number], 9677647, 0158724100, 7684412 #### [facility] (DEFAULT) [address] [place] [address] UA Bacteria Trace [facility] Comment on above: Order Comment: Urina lysis Microscopic order added on by Discern Expert Rules system. Performed By: #### 5 [id number], 3692355, 2968448985, 2985228 #### [facility] (DEFAULT) [address] [place] [address] 31296 UA Hyal Cast 0-5 [facility] Comment on above: Order Comment: Urina lysis Microscopic order added on by Discern Expert Rules system. Performed By: #### 5 092793752, 6833879, 2151280443, 3391105 #### [facility] (DEFAULT) [address] [place] [address] UA Mucous 2+ [facility] Comment on above: Order Comment: Urina lysis Microscopic order added on by Discern Expert Rules system. Performed By: #### 5 [id number], 8402656, 1211539388, 7558956 #### [facility] (DEFAULT) [address] [place] [address] UA RBC 5-10 [facility] Comment on above: Order Comment: Urina lysis Microscopic order added on by Ahonya Expert Rules system. Performed By: #### 5 [id number], 1963702, 9345437094, 6083184 #### [facility] (DEFAULT) [address] [place] [address] UA Squam Epi Rare [facility] Comment on above: Order Comment: Urina lysis Microscopic order added on by Ahonya Expert Rules system. Performed By: #### 5 [id number], 9249339, 9374327812, 1789236 #### [facility] (DEFAULT) [address] [place] [address] UA WBC 15-20 [facility] Comment on above: Order Comment: Urina lysis Microscopic order added on by Ahonya Expert Rules system. Performed By: #### 5 [id number], 4736321, 6163209331, 3997045 #### [facility] (DEFAULT) [address] [place] [address] UA w Culture if Ind Standard on 10-24-2023 Breakpoint UA Normal [facility] Comment on above: Performed By: #### 5 084230225, 5027052, 2171831450, 7680410 #### [facility] (DEFAULT) [address] [place] [address] Color (U) Yellow Normal [facility] Comment on above: Performed By: #### 5 020429238, 2081829, 8350625968, 0665835 #### [facility] (DEFAULT) [address] [place] [address] Culture? Indicated Invalid Interpretation Code [facility] Comment on above: Result Comment: Resu lt created by rule GL_MAGR_ADD_UA_CULT Result created by rule GL_MAGR_ADD_UA_CULT Result created by rule GL_MAGR_ADD_UA_CULT1 Result created by rule GL_MAGR_ADD_UA_CULT Performed By: #### 5 [id number], 6653636, 7633901824, 2458612 #### [facility] (DEFAULT) [address] [place] [address] Glucose (U) [Mass/Vol] Negative [facility] Comment on above: Performed By: #### 5 338233242, 5720379, 4157986257, 7679311 #### [facility] (DEFAULT) [address] [place] [address] Ketones Ql (U) 40 Normal [facility] Comment on above: Performed By: #### 5 046548192, 6154862, 7938363710, 6215030 #### [facility] (DEFAULT) [address] [place] [address] Micro? Indicated Invalid Interpretation Code [facility] Comment on above: Result Comment: Resu lt created by rule GL_MAGR_ADD_UA_MICRO Performed By: #### 5 [id number], 9497032, 7039317817, 1353739 #### [facility] (DEFAULT) [address] [place] [address] UA Bilirubin SMALL Abnormal [facility] Comment on above: Performed By: #### 5 101073096, 3218209, 8729192272, 6253206 #### [facility] (DEFAULT) [address] [place] [address] 56177 UA Blood MODERATE Abnormal NEGATIVE [facility] Comment on above: Performed By: #### 5 [id number], 4039549, 2527307989, 6642887 #### [facility] (DEFAULT) [address] [place] [address] 89442 UA Clarity CLEAR Normal CLEAR [facility] Comment on above: Performed By: #### 5 015658330, 6047966, 0699122413, 5320161 #### [facility] (DEFAULT) [address] [place] [address] 16238 UA Leuk Est TRACE Abnormal NEGATIVE [facility] Comment on above: Performed By: #### 5 [id number], 4521192, 2986653461, 3025136 #### [facility] (DEFAULT) [address] [place] [address] 91217 UA Nitrite Positive Abnormal NEGATIVE [facility] Comment on above: Performed By: #### 5 [id number], 9716645, 6869954331, 3093320 #### [facility] (DEFAULT) [address] [place] [address] 78198 UA pH 6.0 Normal 5-8 [facility] Comment on above: Performed By: #### 5 991773213, 0837827, 6259310270, 3938472 #### [facility] (DEFAULT) [address] [place] [address] 20259 UA Protein 30 Abnormal NEGATIVE [facility] Comment on above: Performed By: #### 5 813558748, 4188962, 3722429640, 7258518 #### [facility] (DEFAULT) [address] [place] [address] 06829 UA Spec Grav 1.020 Normal 1.001-1.035 [facility] Comment on above: Performed By: #### 5 147333206, 4207928, 5421216253, 6875566 #### [facility] (DEFAULT) [address] [place] [address] 39002 UA Urobilinogen 0.2 mg/dL Normal 0.2-1.0 [facility] Comment on above: Performed By: #### 5 [id number], [id number], [id number], [id number] #### [facility] (DEFAULT) [address] [place] [address]70 Urine Source Clean Catch [facility] Comment on above: Performed By: #### 5 [id number], [id number], [id number], [id number] #### [facility] (DEFAULT) [address] [place] [address] 88217 C Urineon 10-21-2023 C Urine <10,000 cfu/ml [facility] Comment on above: Performed By: #### 6 [id number] ####[facility] (DEFAULT)[address] [place] [address]241 Electronic Messagingon 10-19 Electronic Messaging --- --- --- --- --- --- --- --- --- From: Directtest ([email or web address]), Directtest To: DANIELE PERRY Sent: 10/19/23 05:29:38 AM EST Subject: Discharge Summary Ready to View A summary regarding your recent visit is available in the Documents section of your Health Record. [facility] .Auto Diff 1on 10-18-2023 Auto [place] % 8 % Normal 10-18 [facility] Comment on above: Performed By: #### 1 [id number], [id number], [id number], [id number], [id number], [id number] ####[facility] (DEFAULT)[address] [place] [address] 55797 Baso Abs# 0.1 x10 Normal 0.0-0.2 [facility] Comment on above: Performed By: #### 1 [id number], [id number], [id number], [id number], [id number], [id number] ####[facility] (DEFAULT)[address] [place] [address] 46557 Basophils/100 WBC (Bld) 0.4 % Normal 0.2-2.0 [facility] Comment on above: Performed By: #### 1 [id number], [id number], [id number], [id number], [id number], [id number] ####[facility] (DEFAULT)[address] [place] [address] 60295 Eos Abs# 0.0 x10 Normal 0.0-0.4 [facility] Comment on above: Performed By: #### 1 [id number], [id number], [id number], [id number], [id number], [id number] ####[facility] (DEFAULT)[address] [place] [address] Eosinophils/100 WBC (Bld) 0.1 % Low 0.9-4.0 [facility] Comment on above: Performed By: #### 1 3021011, 5151004431, 8086426, 9140453341, 8889201510, 6795601116 ####[facility] (DEFAULT)[address] [place] [address] 98662 Lymph Abs# 1.3 x10 Normal 1.3-2.9 [facility] Comment on above: Performed By: #### 1 9713055, 6459964657, 6024243, 1838245125, 6224907112, 7639237739 ####[facility] (DEFAULT)[address] [place] [address] 87022 Lymphocytes/100 WBC (Bld) 9 % Low 14-48 [facility] Comment on above: Performed By: #### 1 8346781, 0226647384, 0726281, 9428148228, 3221722315, 5441790622 ####[facility] (DEFAULT)[address] [place] [address] 59397 Telfair Abs# 1.2 x10 High 0.0-0.8 [facility] Comment on above: Performed By: #### 1 1886591, 1672314522, 3456645, 8934311350, 6974275664, 4292979371 ####[facility] (DEFAULT)[address] [place] [address] 12512 Neut Abs# 12.5 x10 High 1.5-9.2 [facility] Comment on above: Performed By: #### 1 5682147, 9165601926, 3182804, 3642765330, 7644351387, 6416274394 ####[facility] (DEFAULT)[address] [place] [address] 87999 Neutrophils/100 WBC (Bld) 83 % Normal 44-88 [facility] Comment on above: Performed By: #### 1 0909540, 2362064549, 0267975, 6472131899, 4609136284, 0002645362 ####[facility] (DEFAULT)[address] [place] [address]12[address] Standardon 10-18-2023 eGFR Non AA 34 mL/min/1.73m2 Invalid Interpretation Code [facility] Comment on above: Performed By: #### 1 2872919, 7862789062, 1603328, 4770133830, 7619971006, 8282032959 ####[facility] (DEFAULT)[address] [place] [address] 98327 eGFR AA 42 mL/min/1.73m2 Invalid Interpretation Code [facility] Comment on above: Performed By: #### 1 9479893, 2762830729, 2063344, 0278588441, 4888509806, 8692219667 ####[facility] (DEFAULT)[address] [place] [address] 28809 Anion gap [Moles/Vol] 13.4 mmol/L Normal 5.0-19.0 [facility] Comment on above: Performed By: #### 1 6711052, 7345502968, 0447987, 5134959247, 2958315452, 0902890172 ####[facility] (DEFAULT)[address] [place] [address] 07615 Calcium [Mass/Vol] 8.4 mg/dL Low 8.9-10.3 [facility] Comment on above: Performed By: #### 1 3646859, 1892300864, 0369977, 3255560301, 0523052564, 0775291212 ####[facility] (DEFAULT)[address] [place] [address] 72189 Chloride [Moles/Vol] 101 mmol/L Normal 101-111 [facility] Comment on above: Performed By: #### 1 6561491, 8066827914, 4065342, 9245225559, 8688751641, 7723493043 ####[facility] (DEFAULT)[address] [place] [address] CO2 [Moles/Vol] 24 mmol/L Normal 21-32 [facility] Comment on above: Performed By: #### 1 3522627, 5203769387, 6300799, 0362871934, 7979247534, 8951548500 ####[facility] (DEFAULT)[address] [place] [address] 84729 Creatinine [Mass/Vol] 1.90 mg/dL High 0.90-1.30 [facility] Comment on above: Performed By: #### 1 8458211, 0054778592, 8820395, 6990375229, 6788855226, 4239253687 ####[facility] (DEFAULT)[address] [place] [address] 36222 Glucose [Mass/Vol] 122.0 mg/dL High 74.0-118.0 [facility] Comment on above: Performed By: #### 1 6426328, 0596109175, 1127450, 3514786959, 7393797754, 6803533941 ####[facility] (DEFAULT)[address] [place] [address] 12661 Osmolality 276 mOsm/L Invalid Interpretation Code [facility] Comment on above: Performed By: #### 1 9592162, 1157822502, 6489110, 1212735410, 4807904928, 3895221576 ####[facility] (DEFAULT)[address] [place] [address] 10713 Potassium [Moles/Vol] 4.4 mmol/L Normal 3.6-5.1 [facility] Comment on above: Performed By: #### 1 9355383, 7869361792, 1660953, 4067704988, 3643329331, 2514767915 ####[facility] (DEFAULT)[address] [place] [address] 67480 Sodium [Moles/Vol] 134.0 mmol/L Low 136.0-144.0 [facility] Comment on above: Performed By: #### 1 6545370, 0857024716, 2624725, 1552768882, 4268494266, 4656973374 ####[facility] (DEFAULT)[address] [place] [address] Urea nitrogen [Mass/Vol] 30 mg/dL High 8- [facility] Comment on above: Performed By: #### 1 6553516, 6899496625, 6363254, 6071492162, 6317610448, 0205793000 ####[facility] (DEFAULT)[address] [place] [address] Urea nitrogen/Creatinine [Mass ratio] 15.7 mg/mg Normal 4.6-16.2 [facility] Comment on above: Performed By: #### 1 2880793, 4650210327, 5956197, 8599984583, 1546680027, 2200070437 ####[facility] (DEFAULT)[address] [place] [address] CBC w/ Auto Diffon Erythrocyte distribution width (RBC) [Ratio] 13.5 % Normal 11.5-15.0 [facility] Comment on above: Performed By: #### 1 2462854, 2185695292, 2555296, 6713063473, 7775479017, 3376417561 ####[facility] (DEFAULT)[address] [place] [address] Hematocrit (Bld) [Volume fraction] 45.1 % Normal 34.8-51.9 [facility] Comment on above: Performed By: #### 1 0539636, 0731380255, 8204034, 0675531258, 3028290402, 4243666528 ####[facility] (DEFAULT)[address] [place] [address] 80437 Hemoglobin (Bld) [Mass/Vol] 14.8 g/dL Normal 11.8-17.7 [facility] Comment on above: Performed By: #### 1 6981907, 7959622289, 1478529, 3990856484, 3918623153, 8332582746 ####[facility] (DEFAULT)[address] [place] [address] Man Diff? Auto Invalid Interpretation Code [facility] Comment on above: Performed By: #### 1 0129310, 5860718439, 0823520, 6093563704, 1495601969, 7884282593 ####[facility] (DEFAULT)[address] [place] [address] MCH (RBC) [Entitic mass] 30 pg Normal 24-34 [facility] Comment on above: Performed By: #### 1 0549830, 8649762503, 4157005, 8742236362, 5657610989, 4740787248 ####[facility] (DEFAULT)[address] [place] [address] MCHC (RBC) [Mass/Vol] 33 g/dL Normal 26-37 [facility] Comment on above: Performed By: #### 1 3593952, 3091499757, 7996053, 3826451733, 1445466469, 4251214448 ####[facility] (DEFAULT)[address] [place] [address] 81051 MCV (RBC) [Entitic vol] 90 fL Normal 81-100 [facility] Comment on above: Performed By: #### 1 9612437, 9430549834, 8264762, 5289094025, 6221205371, 3782604502 ####[facility] (DEFAULT)[address] [place] [address] Platelet 253 x10 Normal 138-427 [facility] Comment on above: Performed By: #### 1 5404343, 4626935333, 7653388, 7936860842, 0988087424, 6248953226 ####[facility] (DEFAULT)[address] [place] [address] 61066 Platelet mean volume (Bld) [Entitic vol] 8.8 fL Normal 6.3-10.2 [facility] Comment on above: Performed By: #### 1 4401808, 3588528468, 7536936, 6084036044, 9001522453, 0752987305 ####[facility] (DEFAULT)[address] [place] [address] 37410 RBC 5.00 x10 Normal 3.70-5.30 [facility] Comment on above: Performed By: #### 1 9760546, 7450975577, 7568312, 4962733906, 6593337229, 7734191562 ####[facility] (DEFAULT)[address] [place] [address] WBC 15.0 x10 High 3.5-10.5 [facility] Comment on above: Result Comment: Slid e Reviewed Performed By: #### 1 4925002, 1445545715, 1566776, 7094459848, 0337990563, 4969673491 ####[facility] (DEFAULT)[address] [place] [address] 59682 ED Clinical Summaryon 2023 ED Clinical Summary [facility] - Emergency Department [address] [place] [address] ED Clinical Summary PERSON INFORMATION Name: DANIELE PERRY Age: 78 Years Sex: MALE : 1945 MRN: Acct#: Visit Reason: Post surgical problem; Dysuria; LT FLANK PAIN, PAINFUL URINATION Arrival: 10/18/2023 12:28:00 Discharge: 10/18/2023 15:19:00 LOS: 000 02:51 Check In: 10/18/2023 12:28:00 Checkout:10/18/2023 15:19:00 Address: [address] [place] [address] PCP: Amelia Batista NP PROVIDER INFORMATION Provider Role Assigned Unassigned Jalen Diaz DO ED Provider 10/18/2023 12:37:10 Jose Manuel Camacho BILINGUAL MANAGER Nurse 10/18/2023 12:41:05 VITALS INFORMATION Vital Sign [...] Follow-Up: With: Address: When: Julio Forbes MD [address] [place] [address]. [place] [address] Within 1 to 2 days Comments: Return to ER immediately with worsening pain, fevers, chills, or vomiting. Follow up with your urologist Saturday. You will need your creatinine rechecked. If you cannot get ahold of urologist, then contact PCP. Make sure you are staying well hydrated. DIAGNOSIS: 1:Flank pain Patient Understands: Yes - Patient/family/caregiver verbalizes understanding of instructions given Comment: Normal [facility] ED Note-Nursingon 10-18-2023 ED Note-Nursing private vehicle arri kale from home with c/o dysuria burning with urination s/p urethral stent yesterday with dr chang in [place]. rr even and unlabored. maintains ra saturation. afebrile. abd non tender. urinal provided. s/o at bedside. lcta. oriented to call light. no distress. [facility] ED Patient Summaryon 024 ED Patient Summary [facility] - Emergency Department [address] [place] [address] 29446 PATIENT DISCHARGE INSTRUCTIONS Patient Information Name: DANIELE PERRY Age: 78 Years Date of : 1945 Reason For Visit: Post surgical problem; Dysuria; LT FLANK PAIN, PAINFUL URINATION Arrival Time: 10/18/2023 12:28:00 Primary Care Physician: Amelia Batista NP Attending Physician: Jalen Diaz DO Comment: Visit Diagnosis: Diagnoses This Visit Dysuria ([id number] -[id number]) Flank pain (R10.9) Post surgical problem ([id number]) The Pharmacy at [facility] is open Saturday through [...] alcohol and/or drug addiction problems; contact the [facility] 29/04 Crisis Hotline -Text 4HBYY to 256013. If you received any narcotics, sedation, or [...] documents With: Address: When: Julio Forbes MD [address] [place] [address] [place] [address] Within 1 to 2 days Comments: Return to ER immediately with worsening pain, fevers, chills, or vomiting. Follow up with your urologist Saturday. You will need your creatinine rechecked. If you cannot get ahold of urologist, then contact PCP. Make sure you are staying well hydrated. Medication Information: The exam and treatment you received today in the [facility] Emergency Department were for an urgent problem and are not intended as complete care. It is important for you to follow up with a doctor, nurse practitioner, or physician?s coding assistant for ongoing care. If your symptoms [...] so we can reach you if necessary. [facility] Emergency Department has provided you with a complete list of medications post discharge. Please inform your manager etl/provider of your visit and for further instruction on these medications. Any specific questions regarding your chronic medications and dosages should be discussed with your primary care physician(s) and/or pharmacist. New Medications [id number], [address], [place] [id number], [phone] acetaminophen-hydrocodon e (acetaminophen-hydrocodo ne 325 mg-5 mg [...] mg or (more content not included)... Normal [facility] Extra [facility] 10-18-2023 Tube Collected Yes Invalid Interpretation Code [facility] Comment on above: Performed By: #### 1 4157566, 5151397641, 0873534, 3061271929, 1509535339, 5921195637 #### [facility] (DEFAULT) [address] [place] [address] Operative Reporton Operative Report [id number]#1.00TIF F Normal [facility] RAD - MISCon 10-18-2023 RAD - MISC [id number]#1.00TIFF Normal [facility] UA Leuog8tf 10-18-2023 UA Bacteria Trace [facility] Comment on above: Order Comment: Urina lysis Microscopic order added on by [employer] Expert Rules system. Performed By: #### 2 [id number], 31448014 ####[facility] (DEFAULT)[address] [place] [address] 68443 UA RBC >100 [facility] Comment on above: Order Comment: Urina lysis Microscopic order added on by [employer] Rules system. Performed By: #### 2 [id number], 15747138 ####[facility] (DEFAULT)[address] [place] [address] 64684 UA Squam Epi Rare [facility] Comment on above: Order Comment: Urina lysis Microscopic order added on by [employer] Rules system. Performed By: #### 2 841118943, 43915571 ####[facility] (DEFAULT)[address] [place] [address] 40232 UA WBC 30-40 [facility] Comment on above: Order Comment: Urina lysis Microscopic order added on by [employer] Rules system. Performed By: #### 2 [id number], 01106786 ####[facility] (DEFAULT)[address] [place] [address] 05627 UA w Micro, if Ind Standardo n 10-18-2023 Breakpoint UA [facility] Comment on above: Performed By: #### 2 353649228, 73566618 ####[facility] (DEFAULT)[address] [place] [address] 94609 Color (U) Yellow [facility] Comment on above: Performed By: #### 2 [id number], 66517942 ####[facility] (DEFAULT)[address] [place] [address] 47508 Glucose (U) [Mass/Vol] Negative Normal [facility] Comment on above: Performed By: #### 2 252401783, 48409319 ####[facility] (DEFAULT)[address] [place] [address] 68736 Ketones Ql (U) Negative Normal [facility] Comment on above: Performed By: #### 2 125605297, 24727656 ####[facility] (DEFAULT)[address] [place] [address] Micro? Indicated Invalid Interpretation Code [facility] Comment on above: Result Comment: Resu lt created by rule GL_MAGR_ADD_UA_MICRO Performed By: #### 2 592301598, 38132071 ####[facility] (DEFAULT)[address] [place] [address] 64270 UA Bilirubin SMALL Abnormal [facility] Comment on above: Performed By: #### 2 545056783, 92893445 ####[facility] (DEFAULT)[address] [place] [address] 35709 UA Blood LARGE Abnormal NEGATIVE [facility] Comment on above: Performed By: #### 2 322307843, 66722184 ####[facility] (DEFAULT)[address] [place] [address] 58913 UA Clarity SL CLOUDY Abnormal CLEAR [facility] Comment on above: Performed By: #### 2 748979505, 35583522 ####[facility] (DEFAULT)[address] [place] [address] 40391 UA Leuk Est MODERATE Abnormal NEGATIVE [facility] Comment on above: Performed By: #### 2 546455981, 38945858 ####[facility] (DEFAULT)[address] [place] [address] 00595 UA Nitrite Negative Normal [facility] Comment on above: Performed By: #### 2 375530103, 71462968 ####[facility] (DEFAULT)[address] [place] [address] 82799 UA pH 6.0 Normal 5-8 [facility] Comment on above: Performed By: #### 2 456781193, 16453917 ####[facility] (DEFAULT)[address] [place] [address] UA Protein 30 Abnormal NEGATIVE [facility] Comment on above: Performed By: #### 2 284665881, 23677055 ####[facility] (DEFAULT)[address] [place] [address] UA Spec Grav 1.020 Normal 1.001-1.035 [facility] Comment on above: Performed By: #### 2 299108760, 40704834 ####[facility] (DEFAULT)[address] [place] [address] UA Urobilinogen 0.2 mg/dL Normal 0.2-1.0 [facility] Comment on above: Performed By: #### 2 605128869, 47262823 ####[facility] (DEFAULT)[address] [place] [address] Urine Source Clean Catch Normal [facility] Comment on above: Performed By: #### 2 759254940, 33309517 ####[facility] (DEFAULT)[address] [place] [address] Consent for Procedure/Surger yon 10-15-2023 Consent for Procedure/Surgery [id number]#1.00TIF F Normal [facility] Lab Reportson 10-15-2023 Lab Reports [id number]#1.00TIFF Normal [facility] Electronic Messagingon 10-13 Electronic Messaging --- --- --- --- --- --- --- --- --- From: Damon (Kinjal)Damon To: DANIELE PERRY Sent: 10/13/23 05:11:08 AM EST Subject: Discharge Summary Ready to View A summary regarding your recent visit is available in the Documents section of your Health Record. [facility] .Auto Diff 1on 10-12-2023 Auto Telfair % 7 % Normal 1-12 [facility] Comment on above: Performed By: #### 1 369098891, 5649224176, 2320657558, 6033834, 34048241, 7806989741 ####[facility] (DEFAULT)[address] [place] [address] 27797 Baso Abs# 0.1 x10 Normal 0.0-0.2 [facility] Comment on above: Performed By: #### 1 420991134, 2691869633, 6050385608, 6223078, 39893627, 7927752406 ####[facility] (DEFAULT)[address] [place] [address] Basophils/100 WBC (Bld) 0.9 % Normal 0.2-2.0 [facility] Comment on above: Performed By: #### 1 999387622, 6290762288, 1141140644, 8999536, 48338947, 8499248581 ####[facility] (DEFAULT)[address] [place] [address] Eos Abs# 0.2 x10 Normal 0.0-0.4 [facility] Comment on above: Performed By: #### 1 330036166, 5690501716, 1645093590, 6324265, 89990272, 5542809541 ####[facility] (DEFAULT)[address] [place] [address] 76432 Eosinophils/100 WBC (Bld) 1.9 % Normal 0.9-4.0 [facility] Comment on above: Performed By: #### 1 671403522, 2121841289, 3629760476, 4933112, 60493915, 1318062086 ####[facility] (DEFAULT)[address] [place] [address] 26846 Lymph Abs# 2.2 x10 Normal 1.3-2.9 [facility] Comment on above: Performed By: #### 1 488224550, 4149669605, 6258178489, 1037590, 62992811, 4361318095 ####[facility]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 f0tyBPGqfJWzRGzqKHL5H25u b3I6 WAWaPRQaBGU6jPZ5rM5poTey bjogbGVmdDsgdmVydGljYWwt YOmaG334KHQhvRfpDqEsnQwx bnQg LJorNNp8X7OjVlxznSX+PC90 SQMyPI48mUCuwGOey7qonLs9 MfZpFDElZEA4vByqUGnfx5Us ZXIt Q54jmZAlb5K5EMSueGiwvEOq XsMkzDN6qQ0cCOecmkuvn2uz dmzyQiyrh6vqyv64zL87W37h IHdp FXPcMKDkFGKuFIFazDzagt0n rQ1lVi0+OBBfiMM5bPH3iV0u NMBmHyN3RSirO633UqLipRHr Pjxj b3vxy4vyeQk1OyY0CMYjvyMq bWvvUFY2h5WgGg81J34hLZam SSAgRUJyHRZqEJWsbXqskk8h dG9w Ii8+DYLnrNA9aLX1kQ7wIoId MxG9MGtnO072IdGhuULbGjxk Q14tH4VwmHR+PPZgXfu7BZIl dHls MS3piJAjXYmjSd8nBVI2UhOf RsWzZHlcT7BjMFLiiqlgyjfm wNC5YJUcUZHuiA73Kz1nuLym MTBw nPOGjY7qmirsq5qgjkqoArVn DCVyAEq4KHj8HJWirUrkNpRr WRC6OhV7ZBN9pXXzeY1yoPuf bjog eC5dT6WzAMAxgygjLp22tX7o VlFiXnN1NBcyVip+I4bOT70K CGMAU7sHINc5A4OwKcf4DLWp dHls LC7lfXLcSWhkIg2pwOzdmWze JY5zWGFubjivTRBqjM6jQGQi bLJflWlaZG7zTVKtwwldu389 OiAx KXO3UNSgfBGrQ0DcoE2bJvBs DIGrIBMcY7SehVHuBGpfP632 CSmvBkJ1UZIvaiBeM2BwIXJy aWdu MbO3m4E1Np4jSY6qHL1oCUW9 WK27SX45lVOki7V3yEZ7P8Ch ZCHadwjgtqpwtMC0VHKyEKAs aW47 yBNxMVjtUx9dz7G9j553IFWg XMTidX97Vp5bdQydVSJnwCTL eV5snkkjr1hpvwuaVgKqBNBg MDt0 MIm0NMEboGnvSdWdKNQ8KqH3 PWO5vEJmuE1tbUjsselsjB0c Oyc+AsirYITwboS6N7YcEgs1 ZCBz sOfnDW8mwJJnAPqrIl0epJfu uZqbFQ0fKVIyjfiyFVNerO3l YJOemHNzjMpoTS9dXJUkyjgj b250 PmMpNRW1NKXstHWxP1WauU0n GcKwPOGjNJXsJ3HnpHJsDAgo R397IJdqSsR3MQTrooBmQ9Cj LWFs mFwjKaR4f9Q9Ei7MUOwCBS92 TU38oQStq0V9xEP4Y4EeODBv lxlhbhzalOS0ZJDrRPDkkP39 cGFk DFexMp5ra6E6e597YNIxFLQw wO73Aj6keZlpDOYsjVOCuF9q khlvo8wzqeftRuCgEZFyMJg7 ZXh0 IBCrdUepOvXdNZD9ZvV2HJP3 bLEnjK4hzUfirhtavN8fHnv+ QR5bclacfvQ8ES31AF30E2Di Pjwv dGFibGU+PHRhYmxlIHdpZHRo ZEpdDDObBhPqbHavPX0dHp0b HOIuNWCmvTswiUImXnFhc0kk YXBz HHxcUQ8vxFvdG4SwhXV7DKHo b8h0Th15M96hP6GpoPK+PGNv oNV0wEJ8jI8yMzRnDeR2YRfj Z249 ThNnaEBgCjylx5ihd2zurMy6 IrBoIORwjwEmkRbbZSR8m9Es Xi58E07qTMyiMWYnODRtUTPl IHZh nUksku9abJ9qFx1+PGNvbCB3 fUY5kZ6qYaWbTbB3ZEdiW762 GkKvrXUaCtgzW06sV5YnpZZ+ PHRy Duh2NELdfRyiLC4pwIQpIJxj Xd6sIGT2ErXvBiYeMBwvG4Cl WYZyasfezebglWA8HJOmFKAr aW47 Kl3seXxpQy9pTXHaYFP5CGQb rZTmA2DjwS6kQkRxEMKmLCCs J7NytNXwUYdoO002LFkzCbV5 IHZl hrZdI9KmBCYfrEasJzX4d0T0 Ij8BzDypwSJnDO3mNeNyVEk3 W7FbOnk1EVJxoBbyTW2ybZOg ZGlu Jh2ujLzrrYdkXQ1vHGFlwcre k762CkUoj0elKXVxlNOcLPja KUQ3X36vi8N8SNUcPJYkYVJ1 dGV4 kN3wyWjkmhkzuMSkfCpmyaAh fAmsRLedQUriI552AFMfzIqr FtWGBwy3K0NtDmj2FXZltKem ZT0n nKQzOVyhLc9wgOmxkPucWF4h XURmyvavd102RlFjp8ueVGNj yWEqVAdqWKK6X44bi6Z0PZCa MDAw AMG0rRR4wB4vdVwlzolhnMVw rYtrryUknFsgFGixOSwxG323 YRUpsFkrFn0YRjt8U6BhVxt4 ZCBz tSqaGJ5fdTViZKrqYg1qiCfm eNeuVJ3oHNMqrfqry107IeHm g2rbNGBtfTXwCAchKKA9F12h b3I6 MGByRFFlDTK2bLX9sQ4wzFbn bjogbGVmdDsgdmVydGljYWwt WNwjS204OOEttFiiOePjhNNb Ojwv dGQ+AQ69st52P1GzAeqpOsm7 SDEcJUU4mSK9lI2zHUOyRTpt f4F0xAY7O9OyavTtjg0hw9cl YXBz ZTo (more content not included)... [facility] Electronic Messagingon 09-08 Electronic Messaging --- --- --- --- --- --- --- --- --- From: Damon ([employer]), [employer] To: PERRY DANIELE [place] Sent: 09/08/23 04:57:15 AM EST Subject: Discharge Summary Ready to View A summary regarding your recent visit is available in the Documents section of your Health Record. [facility] ED Clinical Summaryon 2022 ED Clinical Summary [facility] - Emergency Department [address] [place], [place] [id number] ED Clinical Summary PERSON INFORMATION Name: DANIELE PERRY Age: 78 Years Sex: MALE : 1945 MRN: Acct#: Visit Reason: Dental pain; Facial pain; L SIDE FACIAL PAIN Arrival: 09/07/2023 03:59:37 Discharge: 09/07/2023 04:44:00 LOS: 000 00:45 Check In: 09/07/2023 03:59:37 Checkout:09/07/2023 04:44:00 Address: [address] [place] [id number] PCP: Amelia Batista SUPERVISOR CRACK OFF PROVIDER INFORMATION Provider Role Assigned Unassigned Mohan Hogan DO ED Provider 09/07/2023 04:03:15 Chio Zhou BILINGUAL MANAGER Nurse 09/07/2023 04:16:20 VITALS INFORMATION Vital Sign [...] PATIENT EDUCATION INFORMATION Instructions: Dental Caries, Adult, [id number] Follow-Up: With: Address: When: Follow up with [...] to return anytime. Sergio HOGAN< ER PHYSICIAN< Victor Manuel Huitron With: Address: When: Amelia Batista [address] [place], [place] [id number] Business (1) Within 3 to 5 days DIAGNOSIS: Pain due to dental caries Patient Understands: Yes - Patient/family/caregiver verbalizes understanding of instructions given Comment: [facility] ED Note - Physicianon 2022 ED [...] present, hypopharynx is well without any PPA MOTOR OPERATOR or RPA. His heart rate and rhythm is regular murmur lungs are clear without expiratory wheeze or rales Chest motion his face is symmetric speech precise hand grasps are normal pupils are equal round reactive 3 mm, this patient has a dental problem.. Medical Decision Making Orders Impression and Plan Diagnosis Pain due to dental caries ([id number] K02.9, Discharge, Medical) No 19, 18, 17 Plan Condition: Unchanged. Disposition: Discharged: time 09/07/2023 04:24:00. Patient was given the following educational materials: Dental Caries, Adult, [id number]. Follow up with: Amelia Batista Within 3 [...] 09/07/2023 07:33 EST] Mohan Hogan DO Normal [facility] ED Patient Summaryon 023 ED Patient Summary [facility] - Emergency Department [address] [place] [address] PATIENT DISCHARGE INSTRUCTIONS Patient Information Name: DANIELE PERRY Age: 78 Years Date of : 1945 Reason For Visit: Dental pain; Facial pain; L SIDE FACIAL PAIN Arrival Time: 09/07/2023 03:59:37 Primary Care Physician: Amelia Batista NP Attending Physician: Mohan Hogan DO Comment: Visit Diagnosis: Diagnoses This Visit Dental pain ([id number]) Facial pain ([id number]) Pain due to dental caries (K02.9) The Pharmacy at [facility] is open Saturday through [...] alcohol and/or drug addiction problems; contact the [facility] 29/04 Crisis Hotline -Text 1SYTE jq [phone]. If you received any narcotics, sedation, or [...] Enrique Huitron With: Address: When: Amelia Batista [address] [place] [address] Business (1) Within 3 to 5 days Medication Information: The exam and treatment you received today in the [facility] Emergency Department were for an urgent problem and are not intended as complete care. It is important for you to follow up with a doctor, nurse practitioner, or physician?s coding assistant for ongoing care. If your symptoms [...] so we can reach you if necessary. [facility] Emergency Department has provided you with a complete list of medications post discharge. Please inform your manager etl/provider of your visit and for further instruction on these medications. Any specific questions regarding your chronic medications and dosages should be discussed with your primary care physician(s) and/or pharmacist. New Medications [id number], [address], [place] [id number], [phone] acetaminophen-oxycodone (acetaminophen-oxycodone 325 mg-5 mg oral tablet) [...] oral tablet) 1 (more content not included)... [facility] Coding Summaryon 07-03-2023 Coding Summary [facility] RuogxtsjLAn6aGv+PGhlYWQ+ VN3JCUSyW10arOIrfO7mD0KY TElOSywgQVBQTElOSyIgbmFt II1cyEXjXCQb IC8+LV5sPHEkSiivqWJhr1E3 fOO4E44tih3vFHjrqOV4KOBk EsYignqub9dpgVo5GWprHjpa OyBt OCFnpY09BWG3gK13Zp18zYUb sEIsp1pomCx6EvBbVRCaXLQ2 gKxhRZznx7VrECTcM02jlCGi c2U6 TIRidQqoaNXiKtOzsBL3rN0q NBsljcpng0esgzsvRap5cf46 tXMde6E9oIV9L3DsleU3GBJr bGQg NizqdRLMfL5cpoeds0nbnscm FqGuGQTpGPo9HLi6MJHsdKoc VtPgQW23WGN1MGWxxsXpY6Ic LWFs qQtsXtL3t9E0Xk3BS5UKLrap J2YMDEZQBGxthFU+XZ31jz50 I3OlGmbsNjh4RHSaPDX1iMZ6 aD0n TLWgZKrui2I0eZT7C4OfksSm aj3ww4rtKHUhZAxkT52utVMf j6Y0IRMrkIJ5QKIpsJeyJcPr aG93 Oyc+JQZfeFktt3DxZjtxh0jm x4sskCl4SjzlCCTwdjKujHtt QQV8l0DnWt0aEAIepYJ5hJI7 aD0i RwSkBjZ2QPwzC463SnAtyWVo BzbiA10pJ2RxuZI+PHRyPjx0 SNRmgEwhMK9aY0MiCUFtvoyr bGVm nUhjJB9kBIHbdyxeKONaoE3p RXLzE8x3MkJrSnL3QWzdX2Yr KJLxmhpyOk18jM5nKsTwZoQ5 MGlu C9AgweZ7EVUnlZGwIBugTZP0 R84xg4G6EOQpMPZyNUY2sZR2 eD1pdBlzpybxyMZqfAqljxJu dGlj ACsdLWowF288JUTljEqxAkOd ZGluZyBEYXRlOiAgMDkvMjcv MjAyMzwvdGQ+BSNcWGB8bKol PSAn pKOoLInrSc1rnEkzdGrpJX6z NXMnrdklTVCsaJ0cCWHkbEWi sTrrEZ3rNGEtkslmy682TfUt MHB0 JSWybRRbY9YqoI9lMuKzQNFh YPCnG2OmxSQbUOkkH052WOys BfO0HUHrpbIcW9JtYCFomVnl OiB0 u4K1Sm4Qv8YfawgyJ6BciQYp WlWpOyryXFc3K3UyMysfkES+ GT34USRyLT96EMm2XRN7cHwj PSdi BHLvP8KjpJ3gLmSqGTUxZOWt Oyc+PHRhYmxlIHdpZHRoPScx DSKjJcBkrOqyAH6iPa1fEFYx LWNv vQyqkSQcKnKet5rcNMMsBZbg CT6qvUxiB9WigUU5DSUoe2m1 Vr81S73nK2BknTT+PGNvbCB3 aWR0 mW5kGqJrZzJ0RTlcR582PsXg dZNnIzbqf0jme8aarTe0RbM7 XJOrtgGeeTsdJMJ4k4GqOi11 Y29s IHdpZHRoPSIxNSUiIHZhbGln yp5bgA3jEr7+IBItsGT6eWA2 yK5pZkOjTvP9MCurR694PyPo cCIv Ykast7mua9xpwUa7PvQwSUTl uyZnoGppUEY3j7QrXe27D1Pa hZfpb5HuRvt3ho15eDHgm8T8 bGU9 L5NeOHFovdyywEPtqVgyCV0q TXLygbeaXFOssS7oEUAgX6h4 GcFvRaC6AGgiC6JfbrN7GGIh bGQg DNUauYKKtX5kpdmlw1zzidsz OqCdSCHyJOq9RHa8YPHazGgp IbUuGCU0EyL0NZM1zDBgeU3p bGln nqxrwQ0aMww+ROM5pBUzbBPN WR8iQxhwqHW+QBYkXDB6mGdp KVldILKopB1nZNWjA9u3StYe LjA1 SXrfT9TxnaM1RCOtfUAtIDNn uFKGzV9kevkuz6sefvclEqLj RCFxYQn1QTi7GOIkrDmyCkBr ZWZ0 KwE5PUY3yHVovD0jpSsqxrap nT8zZus+UadazXrjHRK2AMj6 F3LpIqo3EILzjOtdFE1ajOIa ZGlu Hf0kmWdyjGedHA2eHBPcanan c407TgEsy0taOJAdvPKaADfq IWA0A69mp5W2TONzLCUqMFA3 dGV4 jX4ytPbsihpalLWawJxkfyGf tEuzEAcbZPkyM227MOXnkWfp RyJqXLf4L2SxDkn1TIOfeHev ZT0n xZIeRHbwTq5bfOhhsIzaKT3x THSuizvzj299ScZgs9cjDHFz lNGyHJiqSRK3K75wx3Y9LWKb MDAw FKU9mSP5gD6eoYjuprlebIGs aRctjcHmuMktRQdrSRzgA906 IWSntFyoTaOzhQf1V5VpKlf6 ZCBz dCbxER7ycHCtUMphXa7erWut gCzeUI5uUHQbraoib228TxVj k9qeOOPrcXUyPIksGXS2F79f b3I6 GBFmTTSdCJZ4rYO6eE3maXsg bjogbGVmdDsgdmVydGljYWwt KMgjR056JBHuuYfeTpVjlBxc bnQg AQdwUFt4P3WeEawivHB+PC90 GZNgBF20aRBoyEIho0jboPf1 SfPyZLJmCXX8sKbbSWiev8Sj ZXIt Z16fzSIcu1X3IHRdbZvswVKq XqHwkRS5aN6pUJqwhcjbr4ys ryamChpjf0hzot58jZ85W16f IHdp PLRnPNOwPKZbOTZaiXzjrc6i nY8uZc2+CCLteII3tOI5wX2s XKUoGrJ5GWinI713RqIxoOEr Pjxj g2wlr0ytcXo5VwV1XUCwewVx jGfmWTD8n9PoWp50D17mIUlq WFQoFZUkUOKtTTNynVhgzl1i dG9w Ii8+OVKvlER6aAR7iP0tKmBy DjG0UHlwD739MvQhbMFvSlbo Q72sV0QvjAC+IJApPtk3AMYs dHls OJ8uuFUjJBtwRa3gQHR0HcLq NmAmGOdzK1FgMHUyjkpgclnm lSE7THVyMGZonA51Sx8orNvc MTBw hVQJpI4uzzwyg7lnsmxwMyDb GQJnMEh0BHl8AZCdiSrfQgTf PPS4UwW8XPS7sQFpzO8gxFkl bjog kC1cO8RmHPJvyembDu71iO3l TnDgMtP2KRcwTbn+V5cCA39D UBHIO6hFPEm9U9WoBao3GLBn dHls AN4qeSCbHLogQe8hsLejjQyo UN8bIOFmjwqtCTHnjP1eAEKu zTJiiUpvWH3bVIFhszshc472 OiAx UIB5ADCfaOGwK4ZwmM7iHtZr UZJmNSQiZ0MglLXzGMtwV058 ZEhfDnY0CFSrnaJtP5XtIQRp aWdu AeE8u4L7Ow8sSW6lLN2nZSQ7 FX60GF94bIUvt0C6qFE1B7Kv LKOjphrwtbbrwHY5RUZnZYLv aW47 kHBnUCqgOw7vh3R5p834DDAh HQEooG03Kk9unUmmOVQcdTPI sH0qcfmdu5wjhawnJqLvSBKy MDt0 YZr4PWPllQyvWfBtTAP8UaN4 LPR2uUWhwM2okPqbxvhmfW8y Oyc+InxuZEEmxfY3Z2WpBrj3 ZCBz nCnnPZ4wqWGpFRqsXx1wwQqc yQedRK4gHQIhmeaiAELyjC4r JUJacHKuaGobRG5qZFZrpztn b250 XiUqXDM1KMRmoEDvN6CjpQ8k ZiPuTLFyMIUbY0EryVLuJNbd U108OSxfGlK8OVXoutWgD8Il LWFs pUqxSrX8q2D7Rh5HHAjBWJ62 HT82dYHvf0U5lGD0Y1PkWMJz jfedsshbhPI4XFWePVAplL14 cGFk YGgdCh5eu4C4k636GVFtDYJy xM52Yo4gvKiuZXAwtGKNwW1h jjdeu5qfcdytZvSgXDNuMIa4 ZXh0 QXWatBwlHcSsLWG1IqF0GEK9 bKJisN9kzEuwecnjsY6wIda+ D0I3E2ZlKvthvVZ+MV47SOZh ZT48 aEVqjLRsq9flnPz5YdXmWOGr YFT6kRypRTlre7TzXRUnY81v sNEcn0J9XCFxgRwhfGLyTfRy bXB0 xO0vICdtqnutp6bvgudmEdea u4hual25qL70L06fPFbpRFRm EVCzNMNdVQAnyJnhxf9inN2o Ii8+ UGTpzTS5hGC3sN5dFoNoTuO2 CWajN612LwLidGVtYsqgf6wo k2gotDr5GlCmPPBpgcVweEih PSJ0 f3CzKa37B85qVRaxPHWdKSEr LGSyFZZpwXkoru8guY5qIk9+ LG2an9oynr57hI98uYD+PHRk IHN0 oEbiYTxvOUTqkZ3cWWjiZxX2 IKTdBqNelY09uZMsEMgaAg1s qCxglQyfAL2wKZWcnccpx335 OiBi i2nqQFCgdWUnUPhuFGT1N26s d8H9FRYyQLGdATR5sDL1vH4p bGlnbjogbGVmdDsgdmVydGlj YWwt XIegQ593LFHgaEpjXbGdtDFq K0unjtWYNM5tEixocZO+PHRk HIM0oRxoCLqiCPLcsX6iSELy Z2h0 VwOfDeT1JLjkX1WgvzH1WRXs vTEbAEKdlRPFwP4igouyu7ap dcymZsOhSEJeMLz6PMj8WOHu aWdu FiPbRMF4QtF9TFY8tVVrwQ8t cZerpovjxK6qDdq+RklOOjwv dGQ+USZyROR5tRvkWHiqLOTa aW5n KVUoZ2l4YtSzXzQ6USqdG1Hd dzG4IJObsXIiBJRgeLKNaL5v cjxvm3rscandOpRjLKJmBEb2 ZXh0 OZEdxOyiYcDiGKT3EmD7LDN7 nFTatA0hbIminwbsmK5tYat+ TVJOOjwvdGQ+CVFyNUY4wHqm PSdw SSDumV3pZLUpO9k1JwYlAlN5 UJafA7GtvdH4LCCvhBQcJMEe yQLRkJ3tsijrj0ucxpoxCzBn MDAw ABt7WXq0ZRLsjUizIvKyLWH3 RtU6EGL9lLYitO4yfGchepvl pM1uOnt+MXL7BFR3ER35FA79 L3Ry PjwvdGFibGU+PHRhYmxlIHdp UDTmATqcVLTaZzCpyDioGA5k Na2jCSGiACUvtDvggGKjDgPn b2xs YXB (more content not included)... [facility] Coding Summary HTMLBase 64 IxjsokyzXHi0dCm+PGhlYWQ+ NJ1MHMVuW86ooXAukM9eV6YD TElOSywgQVBQTElOSyIgbmFt KV7gxAQqNHFo IC8+NT7aUNYtRgdnnXOcw7Z4 rQH0X32txb4yUDwarFP7HIFn EyFfbfyfh7iyfVz1XSkpEctt OyBt PKVblQ97UGB3rX68Cx52gXQu pVBmd8oygAk0PmOoOKDbOSS2 aLmvABilk9MpPCGdG69fqNNi c2U6 QEVllLyifMGtZkVccJY7oI7c KHnfzpsci2rcnnofSdm8wg23 jDJxo3W2kDP2D3AxfuQ8IOAb bGQg IljapQWYaK6bzgfsf8xsydlc McDdYPPsAOj0AQc3ODKurNke BgBaPY13QVQ7HKTytzZgR0Sp LWFs vNapJxQ1e1A8Ri2NP4KXMnxm X0PTTVRXLIwpaZB+ET04yr09 P0IbVvsvKwb1KRDtQOM0zDJ4 aD0n UZKiUTbeo1I0aTN4E3UjniIs iy9oc4ueGQAhFDcuD11wwCXu w2T5ZZTbdUW4WUJcmHwkEzCu aG93 Oyc+KLQgqEaon5VlXhszz3ya a1vvyIs4BygzQMIsgeWcsUyi GLS0f1FkMn5lJXHhqAT6sYT6 aD0i GhDmBsI9UAfsO775BlAnfOSn MbcxS70tS3BbiVS+PHRyPjx0 YYTonDviMT8oL3VmLCZqibjy bGVm mGvpJH5jPNJbpejlXTDxwW2o UOSgK7c7NqChFqR8OYkfE0Sf TUTghoobEz72wZ4iHtMeFdF5 MGlu S9BzvnO8NKYkfWVvRSslOHY2 Q37aj0N8PCIvTGByGRD9dHK5 dX7isVjewgmpnISshGrgewLe dGlj YRiiURkwL336PQUtrTgxKqTx ZGluZyBEYXRlOiAgMDkvMjcv MjAyMzwvdGQ+XFIaAZN8xAxl PSAn wEZlAPtrVl2jiGaeoUygBL8i MCNjqhbfWHLlhG7cMRLadBFe fDqjBR5qWCSqeqsjj471TvUj MHB0 BGEunBXkO4FzkZ0yQmYyTHUh PQNlC5OusPDfOKbeB407NGfp JbQ2PWXasyNeV8VqECLcmUjs OiB0 p0F4Zy0Ys0FnlylbO6OicWYm DbSwKgspRNt7Z4KwBzdsuTC+ UY24PULtOI00MXm2TNW6jAlr PSdi YBVdD5JcfD4jVrEkNLKtUGTa Oyc+PHRhYmxlIHdpZHRoPScx HSHdMlZumXbnFY7xAf9dYZJl LWNv qQtnrWYlTqWdb6zrWYQfTNnq KC0lmMhjW2HkqVA1YAZqk0j3 Pk61J63fE9EjgXO+PGNvbCB3 aWR0 mG2kGiKhXfU1AHqxA208WvEa cBBcMawtt1soh9camYk3IhI8 ARChsmUbrEcvPLG9s4TiQj59 Y29s IHdpZHRoPSIxNSUiIHZhbGln os8lqD8eSe0+YBPfbXL5nUS1 eF8wDzOeEzG1VPgmY800XuAg cCIv Smpby5nvh8psrAv7QpAxSUEa gbCxwOwwRFF9x0VhCm76I3Fa vLhel7ClXcn5wp60jMDao6V8 bGU9 E8FvHEMttxsefGFaiReuJG9p UUUzebouMWNifJ5oNJSmD8r7 NzGxGiG0YRfcK5RckqZ5HHEn bGQg WSYvtKXLdC1jxfadn6pcpesr GrYhFHShGDp0QFv3KUQpoCkn TvRyZQA6UvF5EJZ2tIUvmJ6e bGln avzsyR5tPsb+YIX4tJSnmOCG OM9kCvtxfPG+TOGoIDY9iZic MYgbYDWftR8kSYOaZ6w7MeEg LjA1 YWsvW8CmwvZ8VWGteNPcDIFl oGYTmZ5vjtpfm7vmemqdRnAy JKKaIDb7ERw5UPHmsVvlZwVt ZWZ0 KjQ1ZHW7pHHgzL0bpXwezazw dE6eKxk+LghqlAbkEOM9NOq7 Y7BaCyp1DLNekGntWJ0aaYDm ZGlu Rv8wdRysuJxxCK7pGYSwwczj e891CqXcw3ztUFYlpWSgDGhz XBD3R48mh1E3QGUcFUHwVBA4 dGV4 gZ0nfSsnognenSLzfBslwcHf sLthSNxpRRycE453POHktLfd XzUjPIb1R8QnWhd2JMYehCae ZT0n tXDeILipPx8kiKjnqAlfZF6n DATwnqhcx981BeZtp4duITIz uTSqNLhrXZU0A06hc8D1IKAc MDAw ICB4hFE0wR7ghEtoylcoeKAc aMwllzGseKifYFsuCTxeB254 UJUlxUulUqQmmGj3I4VfSur5 ZCBz iSruXH6ugBIiLMrsHp2fnDvh jVmsVU7gLSSgefmdu429GpJt q0lmDZEmgQDjWHqhFUX2N60a b3I6 RXCtSBOgXTE7dSL0mG8noMfx bjogbGVmdDsgdmVydGljYWwt QIwiC487GQPauXmkQgSppMsw bnQg HHkaZRi7D2ZoYswwbBL+PC90 NSNoGE40xUNsrTIbs5wtePf5 UsTaDDAbRGT5lAcuPRnfp8Ij ZXIt W34gsCQfa2X2EMJtnCerqDRd BuQcbUZ7dA7rTOjyuhmla3tm rmswIiebr8pavc22gC38M41m IHdp BUOtEOPwIGMgAFEkyKloar0r hF3lIo4+OYSriTO0aQH8qF1f HVCdKjY0CRyrC569TkGttBXe Pjxj p1taf5txmBr7OsL1RPUnzkYi vYuySIU2q1JnHm60F87hQQpu NFIwSKGwFCDxUMSjbEifxd1i dG9w Ii8+MYImiXB5lOY3zX2vYgYg BdF6BKsiO842OqRulAWxBlyu G27tN7UoqZD+GTLfWiy1XKSa dHls EB5naDNcVPvuEs9dCTD1ZjHu AbAjAXgrA7KoMVIcwgdjasxb jPR7MFMsVJSoqH70Vz4wsUvo MTBw uNYXgY9cfwwaj9vizwpfLsJo DNJuFDv8WHf1DXAfaYihLsTy AII2FoP0JGC2mWMbvV0nfSsk bjog rZ3qK5MkCAGwjgdnDo78kP4t ZzBgJkI8IRhtExh+H7zHR93L KKQFS8rVOWt8G5CnRvw4IRCh dHls YL5oaGBbROamGc2nmNjnfTjh EI7nCDHmnftwYXTeaI3kGOUi kXAloBbbPF4kXNRmzwlus630 OiAx OSH6NIVjyPHvJ8FxuO8dFhSd LYImCGQgO6HwtPUzVQlxW571 UHxyDoV8EBCambBiR6SgLJLi aWdu QkG4s3K5Qp8xNR8dLS2nCWM6 GH77YB22hMXym2L4oDI7Z9Sf XSXoqzbwsgdmhML5UKGsERAx aW47 pKGlNYwkQn9ww8Q3z739FHPr ZNLepI78Hg4flXsrAPWfmBVL vI7hccfds4azobbgNkMvDYWj MDt0 ALm2VINdzPjdQjAnDBB8ZfV8 MCP5lHUruX5nsQfpcmnnwE0k Oyc+YvqhYRHwupN3X9ZjBlp6 ZCBz tVcdXQ6sxIVaQAkfFg2ubHie lOveYC0iTSEorpvwIMBlaJ9v KVHpkAWwkSqoCW6uHBZmyiar b250 SmXxSFA7KZAtbTAdF7KugM7y LpEjVUYiXXQiD1HhvHNcWWep S796KAsiAmE5MJYsagIyM3Fo LWFs jZrvCmX0o3P6Gz6CISgVZR35 MA86yYZln1L0lLD7Z8FuXVPa kvyztpjmlRH7IHDxSYJiqZ82 cGFk JAujUz9om6T5f369XNFrCEIn gB56Po4yqOzkDCUjgJLLvU9x tvyyl3wyfziyQdYnKYBoKJm1 ZXh0 TJEyqTbqZmXkBLE3LeT3QIE4 qGSfeE6vaOlkobtgkK3sHof+ V9P2W2EwRfczlWA+OH24IKWq ZT48 iYFzvHZkb3gbiWz9SiOdPAXz PGQ1uEpcZItrd8ZkYXMrL57l eDWfm1G8QDSvwJetgIDvOxYr bXB0 cV5pEHqzbztwu1qnvgyyHauo y1jmgm83fM36Z43hANqtLYKj CXPiUGWiEUFwgCnrwx9gqW4z Ii8+ UCNiuXW5mAS7oW8pNxOpVtE1 TQpaZ072NbItpVJnGgbxx6pv e1tybOv4OaMiWXUornBwxRuz PSJ0 g3JnPp55D26kVVnyHUDbKUIt YWRxRHYupPxubi9onJ2zQs7+ RJ1fj8fjsj24fV10cSV+PHRk IHN0 jUetTRmkSYDbyA8vQBldZkX7 VHGqFePhfG72bMQnSYjdPd6h oXvwaOfeJB4jSIDeuegli340 OiBi v7ddTWLblJMfYMboDRJ1B60n j4Q3GFQnHRQzSPZ9kKU9nI5v bGlnbjogbGVmdDsgdmVydGlj YWwt MZcjC965CYEquDwxDpKajXZf Z4qeukAPZZ0lFuatsPC+PHRk VKA6kTolQQwbYULvuO0dSZPs Z2h0 HpKmAhS0CZfqE3KhwuH2LWKx zQIfKYKguKDRhD6niocfl7dl ubjiCpGuLVTnMIs2LHu3JBYt aWdu FpNeKCL7TrW8ZJF9aMUukL8n cExtkmscqR1lVwx+RklOOjwv dGQ+QTJoOKP2mFhdLTdpAIPt aW5n VHWvM4q4DxMhHkA5ZUdaI3Fy ftW4XAWfwGYjRAVeuUYCbG4m xnxoo9oavtbtXtYqIGJxOSi5 ZXh0 WYDarVexDuDtKIH2RoP9YKU4 kHTjfI8fvDxrmkhqkS3xUvf+ TVJOOjwvdGQ+RXVaJYK2vHcf PSdw ZNMfkO4tZGSoW8t0WvXjRiZ1 MKxtU1ZkppI0UQSuzTLfVUJo aLVKcY8mvpckz4golrgaIeFn MDAw GLx1TKd9LIYnjTwgQnDsQOU2 TwU6FNG4pJObpY0fwYvzsuzd qJ7hLqd+NTT9SWW8QX36GM23 L3Ry PjwvdGFibGU+PHRhYmxlIHdp DPCwRYlwUYHrYyLtvJmeLZ6m Xl9pOQZyDPDwkZvntENzMfYl b2xs YXB (more content not included)... [facility] US LE Art Physiological Stud y Bilateralon 06-28-2023 US LE Art Physiological Study Bilateral CLINICAL HISTORY: [...] MD 07/01/23 5:56 pm Technologist: DONITA CUELLAR [facility] US LE Arterial Duplex Kade [...] MD 07/01/23 5:39 pm Technologist: Maldonado GARCIA [facility] 06-27-2023 L ---- Specimen: [id number] Received: 06/27/23-1348 Status: LENNY Gallegos Num: [id number] Spec Type: Surgical Subm Dr: Eliceo Dobson MD Tissues: A Duodenum - Biopsy (DUODENUM) B Gastric Biopsy (GASTRIC BX) Procedures: HE/4, Gross/Micro L4/2 Age/ Patient Sex Location Account Attending Physician Daniele Perry /[facility] [id number] Eliceo Dobson MD SPEC NUM: [id number] RECD: 06/27/23 STATUS: LENNY GALLEGOS NUM: [id number] ROD: 06/27/23- [facility] DR: Eliceo Dobson MD ENTERED: 06/27/[address]: SPEC TYPE: Surgical DEPT: S ORDERED: [...] submitted in one cassette labeled B1. Specimen: [id number] Received: 06/27/23 Status: LENNY [place] Num: [id number] Spec Type: Surgical Subm Dr: Eliceo Dobson MD Tissues: A Duodenum - Biopsy (DUODENUM) B Gastric Biopsy (GASTRIC BX) Procedures: HE/4, Gross/Micro L4/2 Patient: PerryDaniele [id number] (Continued) Specimen: [id number] Received: 06/27/23 (Continued) Signed (signature on file) Tani Lucas MD 07/01/23 1508 Specimen: [id number] Received: 06/27/23 Status: LENNY Gallegos Num: [id number] Spec Type: Surgical Subm Dr: Eliceo Dobson MD Tissues: A Duodenum - Biopsy (DUODENUM) B Gastric Biopsy (GASTRIC BX) Procedures: HE/Ernst, Gross/Micro L4/2 Patient: Daniele Perry [id number] (Continued) Specimen: [id number] Received: 06/27/23 (Continued) Microscopic Description A. Two H E slides reviewed. The microscopic examination confirms the diagnosis. B. Two H E slides reviewed. The microscopic examination confirms the diagnosis. CPT Codes 67275f0 Specimen: [id number] Received: 06/27/23 Status: LENNY Gallegos Num: [id number] Spec Type: Surgical Subm Dr: Eliceo Dobson MD Tissues: A Duodenum - Biopsy (DUODENUM) B Gastric Biopsy (GASTRIC BX) Procedures: BRUCE/Ernst, Gross/Micro L4/2 Patient: Daniele Perry [id number] (Continued) Signed (signature on file) Tani Lucas MD 07/01/23 1508 [facility] Provider Orderson 06-24-2023 Provider Orders [id number] GTIFF [facility] Manuel 04-04-2023 L ---- Specimen: [id number] Received: 04/04/23 Status: LENNY Gallegos Num: [id number] Spec Type: Surgical Subm Dr: Eliceo Dobson MD Tissues: A Gastric Biopsy (GASTRIC BX) Procedures: HE/Delphine, Gross/Micro L4 Age/ Patient Sex Location Account Attending Physician Daniele Perry/Jihan [id number] Eliceo Dobson MD SPEC NUM: [id number] RECD: 04/04/23 STATUS: LENNY GALLEGOS NUM: [id number] ROD: 04/04/23- [facility] DR: Eliceo Dobson MD ENTERED: 04/04/[address] [facility] [address]: SPEC TYPE: Surgical DEPT: S [...] microscopic examination confirms the diagnosis. CPT Codes 10168 Specimen: [id number] Received: 04/04/23 Status: LENNY Gallegos Num: [id number] Spec Type: Surgical Subm Dr: Eliceo Dobson MD Tissues: A Gastric Biopsy (GASTRIC BX) Procedures: BRUCE/2, Gross/Micro L4 Patient: Daniele Perry [id number] (Continued) Signed (signature on file) Manda Faye MD 04/05/23 1004 [facility] Screenson 04-04-2023 Screens [id number] :127 [facility] Patient Educationon 04-03-20 Patient Education Nephrology [...] ? 8 oz (237 mL) of milk, vdvklmj-azyvmkgeccna-hnm ry milk, and calcium-fortifiedfruit juice. Calcium-fortified means [...] Spinach (cooked), rhubarb, beets, sweet potatoes, and Swazi chard. ? Peanuts. ? Potato chips, turkish fries, and baked potatoes with skin on. ? Nuts and nut products. ? Chocolate. ? If you regularly take a diuretic medicine, make sure to eat at least 1 or 2 servings of fruits or vegetables that are high in potassium each day. These include: ? Avocado. ? Banana. ? Jeff Davis, prune, carrot, or tomato juice. ? Baked [...] fish oil, or vitamin B6. ? Take sybm-pel-ylxgtvu and prescription medicines only as told by your health care provider. These include supplements. What foods should I limit? Limit your in (more content not included)... Normal [facility] Urology Office/Clinic Noteon 04-03-2023 Urology Office/Clinic [...] (N20.0: Calculus of kidney) Pt presented to [facility] ER on 04/02/22 due [...] [facility] [address], [place] [address]- Additional Instructions: 1 yr KUB Patient Education [...] 10 mg-1 (more content not included)... Normal [facility] Comment on above: Result Comment: Elec tronically Signed By: ANDREI WEEKS, Julio Woods\.br\Date and Time Signed: 04/03/23 13:23 EDT\.br\Electronically Co-Signed By: Hansa Espinoza\.br\Date and Time Co-Signed: 04/03/23 13:22 EDT Coding Summaryon 03-27-2023 Coding Summary HTMLBase 64 GrarwchoCNx9kEj+PGhlYWQ+ KJ2LDFDtY45ykQEpiW0yF6ST TElOSywgQVBQTElOSyIgbmFt SR0coLVhCLRp IC8+EB7vJHIuWkgdnNWth2K8 eIB3Y04jss6vDQnyaXF3TKPm XeYhmkwry1misIm6APhzJicg OyBt OGHalM20FJH8pE59Hy06kNEj iGRlo6vvkXh2DnVzLPMoOUJ8 fWpsXRrim5VxLPUkN27zhYGt c2U6 DLKbuTfqeTWgUlDaxPZ0tY0i CYdmjjwxl6dfmyjjHlr6ex49 yWVsg3Z2rVE2W3VrcpA3GIUl bGQg KmtaoNAKlZ0sggiir7lxnqkq BuMwFMViWXg7GUa4FTRznJpm OlRjQU11AQZ0PSHtluLiR1Vi LWFs gZoqEtB6i0P5Xi4SY6KAOfqg T4IREQNUFNmsaFK+UC34id43 K1CyRcknBza2CLMwYMS7jVX8 aD0n OHXmAYqam7Q1qXH0M5HhzgOw zy6ol9rfFZOxKXxzP20wmNAi e8Z9XCPdlRC6JVRzlAqgYvAh aG93 Oyc+OKWubXxiw6NuEgcmc3pc p9oskFg3SorkRANxfpCwmClo PQK5o5FkCs3vNWLttNP8vNQ2 aD0i WpYdBuZ6YFqiU220DxTebDGw CjsjO69lI3VuaUG+PHRyPjx0 EXJpbHtyNC9sF4SbDMQbavoa bGVm nHdeDG7zNABdvpebYXMhdL8e YRVlD6g1QcWyBsK8MBxrW5Bz YOIdcrtlOg59qR8aFxKoDqV3 MGlu X1QueeW9QMOnyERvGKauFSJ0 O93xm2T9YPZnKBWrSMI0nXK3 xA3elVccijxhePFmaYyqbzSv dGlj GAgoISrkG812OABcnOedJtSb ZGluZyBEYXRlOiAgMDYvMjEv MjAyMzwvdGQ+RALnXRT4fXqy PSAn mIApFMjwLv6owApmgGhuWU6t KHAajtkhFLRmeR2xMYBpeONj iFweZH2qNCFsitspk199AnZr MHB0 RFNirARuR9CewU7tYjYzPFNd WPUyA1MghXDyPKnbX412LYxd EvT9BBAxetHuO3EoSYNhmYvf OiB0 v7J1Po0Sb7XfsdhjX7MceZMx VkIbQxziEMm0L1JmVwqsgLJ+ AT46HPViTY88MMx8IDN0xDcb PSdi IACpV4QlwU7aKnGoKBAzOOUb Oyc+PHRhYmxlIHdpZHRoPScx KWRbXiDkmItmXJ8fTo5bFDIj LWNv mEfuvBQeEzTxk8pfMGYyXKnu NT7brSmoD7YyuHM0FQBge4d0 Nr45D96iS8UunZY+PGNvbCB3 aWR0 zX0eOfKdIhW5MFbfW893FpRk sEEsQxfcv8xxz3rhxOo4YwV2 LVPeatNacGssAFQ6f7FhYw86 Y29s IHdpZHRoPSIxNSUiIHZhbGln qe9biJ1wYn3+KVPduQM5uKI3 bB8lHxTjQaE9EMyoS807VxSm cCIv Errog2aar4rvmZf6PaQfCVLs doNyjUfkONC2n6QzLt81O7Zl rQzcc0QgUlv2cr98uBGcm7I3 bGU9 P8OpCRZgncrdzBApoPmcEN6n XLGrllwgBCSyfP4rEWDjQ5p1 QjZgPhY7OWskT9DuryW4MDJe bGQg HXTqfEKQvR7udxkyg5bfkifp FtYrSEOhSHk6XHz3NVNwjGcu TjBzXMC6SxD7GYM8jPFieB6f bGln aqhzfL8zEbz+VNI4rKWuqFJD PF3uJuttkPZ+ECZoIRR0jMma JQglCYYcnO3qGDGpN6a0DoWr LjA1 RDzrY3IqlvI8BOCaaBBaHAMb uQPBfT3lxouio9sjyxmcLpNk LEJtJQj2VNi9HIVioNblJyAc ZWZ0 NhL9XCO4bIFsuB9aqEoproqo dV4hUkn+HmfbsLzkLHY3SKh1 M4KgOfs9DTBnxPpgDD0cgKKv ZGlu Kl3pbLhprWdsXN7eUKTttqqa m759ZwUox0wtKKZweNSaUJsj XNC0W87il1G5KWVuCLEoEVB7 dGV4 fM3pxQezhyswqBOxxZactwKr tQmfAPdjTXkxG803ANGvvEuc LvQmJTb8A1RtIgh5QPMjvImq ZT0n hWVcLLxcRr6dtSpbfOsfZT4e KBGuymhdv196CfMlu1lxWEXz iWBzKRswTSB5C27zi9X0CEAn MDAw FWT0eFU2kJ3aqOcmkzpqtYDy xOxtnzHaqSyeJOapXJryL957 RBAfyRqaFkGwfJp4P7NyIob6 ZCBz zZcdCW5vpABiBVdvQx3ywQxv bTogLG9tLJWdkfxxd522QlYv c7pdGNEluNIrJWyiFND0E11a b3I6 ISReSUKaDES6kKS5yM4bcXth bjogbGVmdDsgdmVydGljYWwt JKoiZ891JMNuwMftIpIkkBxg bnQg PCxhKCb3Y1ZbIxaoyEX+PC90 AWDlNQ19yWUvwLSmk3gypIx5 VrSkHZSdOFY0pVvnXTchd6Ul ZXIt I68kbISdd8I7PZSruCggoWYg ZrLcaGD3aE4aIHawnapbd7kn mkqfBhbop3ghyw51uF91J22g IHdp NAXaNNUsYZOwWEFuuMnohz7w oK0nVy2+RCAcrCO4fGU8rD4m QXIkPtP6EGxtD178JcVvfVUs Pjxj q3iev8oliWb2XmY2QEZmtzLj xRolRNU0g2JkHj88E75xKCdj QIIsDZPgKZCpGPPovByuuk5e dG9w Ii8+OXOnvRP7yTW6qS7vHiRn HfD3RHwoZ977JzQsfUNdLgmv L72vD3YmfBL+SMWzGkd8LVBk dHls VA6guHCuPLfkUv6mRVB3AiSv TbLvFWizQ1ChCLJvpkimyqwy vHY4BLUfABKitH81Qc2svWpe MTBw gFQEvU1nnmaqg0xacgbdPgZi PAQsYWa7VDg9WGOyqUoeAbLh PZN4IsJ6MBL9vXVlxU5nuUuc bjog pL0pC7LkQWCqsdvuDw20gP4c AhAyYaI5NNteSnl+I8dSF98Z FLNGY5yRGTh5Y7XeOwf2BQPm dHls YR2zhWOhGNerOz2epQvcuOrj EK5oVIHiifqlVYVtnI2oTJRz eCFacBliMT5jXRNpasclh252 OiAx FVR7HTZmmKAnI6BmdR4yXuVu DJZnOXCoF4ShcAPaOCtyG708 VCvlZcH2JBYjolFfJ2RaJHXu aWdu XnE9g8S2Ry7wPO7iDQ6yHBD8 TK36EC99hDVyw4V7nIP3R1Ih ALRnslmciagjrLN6QTWvNGKz aW47 xUKkVHubIl8bg5Y5n552HDBn YLRcwB05Kv1wcBwkJHWofLFM xM9hnabny9fcjgxrExPdUODb MDt0 ZRw3ADGvoWfiFfLiKHN6EcS7 VRF7wEBviP6tjXohquxleS3e Oyc+NpfgUURzzcB9I1NgXix6 ZCBz zBjpFS9sqLUpLUksXx2igKta pGruLJ8bQDIddopwBQUcgX4d FNLlwGEfsLfiYZ4jNGUcyzks b250 ZfSuTIW8EAVcdCNcT4YsnB0g BmNjVJGgXVRoJ8FkbSCiRXub D749FUorTxT4BJFbnwLcM8Ub LWFs fKfnUtP3x4E2Lr2EKHoOKF80 ZT14wRYcb2P2zMR0I4LkTZRx qaazgwmywGN4XEFhHFXprC34 cGFk QXzhPw1pi1H9q016SMQsQSQx rV25Ta3wdCyhKBDlkDMJgO6j szaob7obuyvlSmUdCRDxALu4 ZXh0 WCWeyBpzXnFoQYB9AxA9UGZ8 fRQhaC1frMjkehudkP6iFhf+ I0P5M9RqCuhbkZZ+TV56IRPs ZT48 wETfnQFaq8mxcVq5RuUnZEHc EIK2hAkzQAdid5KfPQJlC36f iGThp3W5PSNprAtrbVStOvTi bXB0 yL2lFHqzuqubw5lsaomhFpmf y9kdfe67iD49B58mQXyhLLPl BGPlNLJrHBYixZrzik1kuL7a Ii8+ CBNqlEC5vIH3cE4oPoVyTxS1 ASswH655GcWfjXGcEtlfd6uu p6veiAc6BmVzNVAwetWrhLbr PSJ0 c9FhKm86X99nVAlkWGLvNQEh TSTuSGJjdVatug0dnA8aJm6+ ND9iv0ubqm34iT52rVS+PHRk IHN0 zTtyNSmmKOKbxO1cSRqtLsH6 LXUdDvMpqC08oWMdIYgfZc8m tKjzpGrvCR6dQFDtheldm092 OiBi j5kcULVflYPlRTweROB3I63y w1I6VRKbTAWeSVU8rZV0mU9u bGlnbjogbGVmdDsgdmVydGlj YWwt CEnvK960ICAnsKpcBtMzlALy J0tymsNNGM1zWdluaBC+PHRk MSB9uZusLVicFIOqnB7oSSNw Z2h0 QqNdByH9EZrhL0NzckU6GBJm oARiYGZrvOERaR6lfyrvm2il agmuItOtMWNcPHy1SOq6BXQa aWdu BzDmZKO3OvK5GGZ5bIRtbA0e aGqluxchhO1vUil+RklOOjwv dGQ+QEOxXFD5vEruGHivSWXv aW5n OYDtO5d6ZsFxNoV5XPnpS6Un dtK1LOXehQReFRHbvUOAjR1m jqnez2ojhqxjOmDlNXIwCHn1 ZXh0 DOIczPlqXsXfHRT6ErD5MDW6 iTJqeQ2dqVsemzlheB8xSjl+ TVJOOjwvdGQ+FJFmRTK1mXov PSdw ILOvgQ4pQYRnV4a1IoVaIkR3 LZthN8YplsN2PPTwmDOhQQOi uPLWaF7hkvrfo1aacrcrKjBc MDAw LLj0QWs5RXRygAniNmKoQBB6 QxI6UXK6aSPouA6ydAbumfnk aV0jIvq+JGX1KNG2WZ90TV00 L3Ry PjwvdGFibGU+PHRhYmxlIHdp OPZfCEvdDXKdLaLbkDkjAS0n Ng1uGIVkXXHdnEkdmDKiXpGs b2xs YXB (more content not included)... [facility] Provider Orderson 03-27-2023 Provider Orders [id number] IFF [facility] RAD - MISCon 03-26-2023 [facility] [id number]: 127 [facility] XR Abdomen Single View (KUB) [...] MD 03/26/23 12:07 p Technologist: Juaquin SUAREZ [facility] XR wrist LT min 3V*on 2021 XR wrist LT min 3V* [facility] [employer] Other XR wrist LT min 3V* [facility] [employer] Other XR wrist LT min 3V* [address] [facility] [employer] Other XR wrist LT min 3V* [place] [address] Merged With [facility] [employer] Other XR wrist LT min 3V* [facility] [employer] Other XR wrist LT min 3V* Signed [employer] Other XR wrist LT min 3V* Patient: Daniele Perry MR#: [id number] Merged With [facility] [employer] Other XR wrist LT min 3V* 7 [employer] Other XR wrist LT min 3V* : 1945 Acct:[id number] [place] [employer] Other XR wrist LT min 3V* Age/Sex: 76 / M ADM Date: 11/06/21 [employer] Other XR wrist LT min 3V* Loc: [facility] Room: Type : [facility] [employer] Other XR wrist LT min 3V* Attending Dr: Trino Crain DO [employer] Other XR wrist LT min 3V* Ordering Provider: Trino Crain DO [employer] Other XR wrist LT min 3V* Date of Service: 11/06/21 [employer] Communications Other XR wrist LT min 3V* XR/XR wrist LT min 3V*: Left wrist pain [employer] Other XR wrist LT min 3V* Copies to: Trino Crain DO [employer] Other XR wrist LT min 3V* Left wrist 4 views. 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 No known injury. [employer] Other XR wrist LT min 3V* COMPARISON: None. [employer] Other XR wrist LT min 3V* FINDINGS: No focal s oft tissue abnormality is seen. Chondrocalcinosis involving the TFCC. No acute [employer] Other XR wrist LT min 3V* bony process is note d. 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 [employer] Other XR wrist LT min 3V* X R/XR wrist LT min 3V* [employer] Other XR wrist LT min 3V* Impression: No acute bony process is seen. Degenerative change. [employer] Other XR wrist LT min 3V* Impression dictated by: Gil Romero Jr., D.O.11/06/2021 4:21 PM [employer] Other XR wrist LT min 3V* Dictation Location: [place] [address] [employer] Other XR wrist LT min 3V* Transcribed By: RANDI 11/06/21 162 [employer] Other XR wrist LT min 3V* Dictated By: Gil Romero Jr DO 11/06/21 162 [employer] Other XR wrist LT min 3V* Signed By: [employer] Other XR wrist LT min 3V* 11/06/21 162 No [employer] Other CALCULI, URINARYon 0 2,8 Dihydroxyadenine Normal [facility] Comment on above: Performed By: #### C BC #### [facility] [address] [address] [place] Ammonium Acid Urate Normal [facility] Comment on above: Performed By: #### C BC #### [facility] [address] [address] [place] Bilirubin [Mass/Vol] Normal [facility] Comment on above: Performed By: #### C BC #### [facility] [address] [address] [place] Ca Oxalate Dihydrate 30 % Normal [facility] Comment on above: Performed By: #### C BC #### [facility] [address] [address] [place] CaHPO4 (Brushite) Normal [facility] Comment on above: Performed By: #### C BC #### [facility] [address] [place] [address] [place] Calcium Bilirubinate Normal [facility] Comment on above: Performed By: #### C BC #### [facility] [address] [address] [place] Calcium Carbonate Normal [facility] Comment on above: Performed By: #### C BC #### [facility] [address] [address] [place] Calcium Oxalate Monohydrate 70 % Normal [facility] Comment on above: Performed By: #### C BC #### [facility] [address] [address] [place] Calcium Palmitate Normal [facility] Comment on above: Performed By: #### C BC #### [facility] [address] [place] [address] [place] Calcium Phosphate Normal [facility] Comment on above: Performed By: #### C BC #### [facility] [address] [place] [address] [place] Calcium Stearate Normal [facility] Comment on above: Performed By: #### C BC #### [facility] [address] [address] [place] Carbonate Apatite Normal [facility] Comment on above: Performed By: #### C BC #### [facility] [address] [place] [address] [place] Cellular Material Normal [facility] Comment on above: Performed By: #### C BC #### [facility] [address] [place] [address] [place] Cholesterol [Mass/Vol] Normal [facility] Comment on above: Performed By: #### C BC #### [facility] [address] [place] [address] [place] Color (U) Black Normal [facility] Comment on above: Performed By: #### C BC #### [facility] [address] [place] [address] [place] Comment Normal [facility] Comment on above: Performed By: #### C BC #### [facility] [address] [place] [address] [place] Comment: Comment Normal [facility] Comment on above: Result Comment: Phys ician questions regarding Calculi Analysis contact [facility] at: [phone]. Performed By: #### C BC #### [facility] [address] [place] [address] [place] Composition Comment Normal [facility] Comment on above: Result Comment: Perc entage (Represents the % composition) Performed By: #### C BC #### [facility] [address] [place] [address] [place] Cystine Normal [facility] Comment on above: Performed By: #### C BC #### [facility] [address] [place] [address] [place] Disclaimer: Comment Normal [facility] Comment on above: Result Comment: This test was developed and its performance characteristics determined by [facility]. It has not been cleared or approved by the Food and Drug Administration. Performed By: #### C BC #### [facility] [address] [place] [address] [place] Dried Blood Normal [facility] Comment on above: Performed By: #### C BC #### [facility] [address] [address] [place] Drug or Metabolite Normal [facility] Comment on above: Performed By: #### C BC #### [facility] [address] [address] [place] Hydroxyapatite Normal [facility] Comment on above: Performed By: #### C BC #### [facility] [address] [address] [place] Mg NH4 PO4 (Struvite) Normal [facility] Comment on above: Performed By: #### C BC #### [facility] [address] [address] [place] MgHPO4 (Newberyite) Normal [facility] Comment on above: Performed By: #### C BC #### [facility] [address] [address] [place] Other component(s) Normal [facility] Comment on above: Performed By: #### C BC #### [facility] [address] [address] [place] PDF . Normal [facility] Comment on above: Performed By: #### C BC #### [facility] [address] [address] [place] Photo Comment Normal [facility] Comment on above: Result Comment: Phot ograph will follow under a separate cover Performed By: #### C BC #### [facility] [address] [address] [place] Please note: Comment Normal [facility] Comment on above: Result Comment: Calc pee report will follow via computer, mail or clinical social work aide delivery. Performed By: #### C BC #### [facility] [address] [address] [place] Size 2x2 Normal [facility] Comment on above: Result Comment: Mult iple pieces received. Dimensions of the largest piece reported. Performed By: #### C BC #### [facility] [address] [address] [place] Sodium (U) [Moles/Vol] Normal [facility] Comment on above: Performed By: #### C BC #### [facility] [address] [place] [address] [place] Source Comment Normal [facility] Comment on above: Result Comment: Not provided Performed By: #### C BC #### [facility] [address] [place] [address] [place] Triamterene Normal [facility] Comment on above: Performed By: #### C BC #### [facility] [address] [place] [address] [place] Urate [Mass/Vol] Normal [facility] Comment on above: Performed By: #### C BC #### [facility] [address] [place] [address] [place] Uric Acid Dihydrate Normal [facility] Comment on above: Performed By: #### C BC #### [facility] [address] [place] [address] [place] Weight 4 mg Normal [facility] Comment on above: Performed By: #### C BC #### [facility] [address] [place] [address] [place] Xanthine Normal [facility] Comment on above: Performed By: #### C BC #### [facility] [address] [place] [address] [place] CBC AUTO DIFFon 04-07-2020 Basophils (Bld) [#/Vol] 0.1 103/ul Normal 0.0-0.1 [facility] Comment on above: Performed By: #### C BC #### [facility] [address] [place] [address] [place] Basophils/100 WBC (Bld) 0.6 % Normal 0.2-2.0 [facility] Comment on above: Performed By: #### C BC #### [facility] [address] [place] [address] [place] Eosinophils (Bld) [#/Vol] 0.3 103/ul Normal 0.0-0.7 [facility] Comment on above: Performed By: #### C BC #### [facility] [address] [place], [place] [id number] [place] Eosinophils/100 WBC (Bld) 3.6 % Normal 0.9-7.0 [facility] Comment on above: Performed By: #### C BC #### [facility] [address] [place], [place] [id number] [place] Erythrocyte distribution width (RBC) [Ratio] 14.5 % Normal 11.0-15.0 [facility] Comment on above: Performed By: #### C BC #### [facility] [address] [place] [address] [place] Hematocrit (Bld) [Volume fraction] 54.1 % Critically high 42.0-54.0 [facility] Comment on above: Performed By: #### C BC #### [facility] [address] [place] [address] [place] Hemoglobin (Bld) [Mass/Vol] 17.2 g/dL Normal 14.0-18.0 [facility] Comment on above: Performed By: #### C BC #### [facility] [address] [place] [address] [place] IG # 0.02 10e3/ul Normal 0.00-0.03 [facility] Comment on above: Performed By: #### C BC #### [facility] [address] [place] [address] [place] IG % 0.2 % Normal 0.0-0.5 [facility] Comment on above: Performed By: #### C BC #### [facility] [address] [place], [place] [id number] [place] Lymphocytes (Bld) [#/Vol] 2.7 103/ul Normal 1.2-3.8 [facility] Comment on above: Performed By: #### C BC #### [facility] [address] [place], [place] [address] [place] Lymphocytes/100 WBC (Bld) 32.0 % Normal 20.5-60.0 [facility] Comment on above: Performed By: #### C BC #### [facility] [address], [place] [address] [place] MANUAL DIFF REQ NO Normal [facility] Comment on above: Performed By: #### C BC #### [facility] [address] [place], [place] [address] [place] MCH (RBC) [Entitic mass] 29.6 pg Normal 25.9-34.0 [facility] Comment on above: Performed By: #### C BC #### [facility] [address] [place], [place] [address] [place] MCHC (RBC) [Mass/Vol] 31.8 g/dL Normal 29.9-35.2 [facility] Comment on above: Performed By: #### C BC #### [facility] [address] [place], [place] [address] [place] MCV (RBC) [Entitic vol] 93.1 fL Normal 80.0-94.0 [facility] Comment on above: Performed By: #### C BC #### [facility] [address] [place], [place] [address] [place] Monocytes (Bld) [#/Vol] 0.9 103/ul Critically high 0.3-0.8 [facility] Comment on above: Performed By: #### C BC #### [facility] [address] [place] [address] [place] Monocytes/100 WBC (Bld) 11.1 % Normal 1.7-12.0 [facility] Comment on above: Performed By: #### C BC #### [facility] [address] [place], [place] [address] [place] Neutrophils (Bld) [#/Vol] 4.3 103/ul Normal 1.4-6.5 [facility] Comment on above: Performed By: #### C BC #### [facility] [address], [place] [address] [place] Neutrophils/100 WBC (Bld) 52.5 % Normal 43.0-75.0 [facility] Comment on above: Performed By: #### C BC #### [facility] [address] [id number] [place] Platelet mean volume (Bld) [Entitic vol] 11.0 fL Normal 9.5-13.5 [facility] Comment on above: Performed By: #### C BC #### [facility] [address] [place], [place] [address] [place] Platelets (Bld) [#/Vol] 232 103/ul Normal 150-450 [facility] Comment on above: Performed By: #### C BC #### [facility] [address] [place], [place] [address] [place] RBC (Bld) [#/Vol] 5.81 106/ul Normal 4.70-6.10 [facility] Comment on above: Performed By: #### C BC #### [facility] [address] [place], [place] [address] [place] WBC (Bld) [#/Vol] 8.3 103/ul Normal 4.0-11.0 [facility] Comment on above: Performed By: #### C BC #### [facility] [address] [place], [place] [address] Sbarabella Richardsonen PROF CHEM 8 (BAS METB)on Anion gap [Moles/Vol] 8.7 mmol/L Normal [facility] Comment on above: Performed By: #### B MP #### [facility] [address] [place], [place] [address] [place] Calcium [Mass/Vol] 8.8 mg/dL Normal 8.4-10.2 [facility] Comment on above: Performed By: #### B MP #### [facility] [address] [place], [place] [address] [place] Chloride [Moles/Vol] 104 mmol/L Normal 98-107 [facility] Comment on above: Performed By: #### B MP #### [facility] [address] [place], [place] [address] [place] CO2 [Moles/Vol] 32.5 mmol/L Critically high 22.0-30.0 [facility] Comment on above: Performed By: #### B MP #### [facility] [address] [id number] [place] Creatinine [Mass/Vol] 1.21 mg/dL Normal 0.66-1.25 [facility] Comment on above: Performed By: #### B MP #### [facility] [address] [id number] [place] EGFR-AF PORTUGUESE >60 Normal >=60 [facility] Comment on above: Performed By: #### B MP #### [facility] [address] [id number] [place] EGFR-NON AF PORTUGUESE 58 mL/min/1.73m2 Critically low >=60 [facility] Comment on above: Performed By: #### B MP #### [facility] [address] [place], [place] [address] [place] Glucose [Mass/Vol] 89 mg/dL Normal 74-106 [facility] Comment on above: Performed By: #### B MP #### [facility] [address] [place], [place] [address] [place] Potassium [Moles/Vol] 4.2 mmol/L Normal 3.4-5.0 [facility] Comment on above: Performed By: #### B MP #### [facility] [address] [place], [place] [address] [place] Sodium [Moles/Vol] 141 mmol/L Normal 137-145 [facility] Comment on above: Performed By: #### B MP #### [facility] [address] [place], [place] [address] [place] Urea nitrogen [Mass/Vol] 15.0 mg/dL Normal 9.0-20.0 [facility] Comment on above: Performed By: #### B MP #### [facility] [address] [place], [place] [address] [place] Urea nitrogen/Creatinine [Mass ratio] 12.4 mg/mg Normal [facility] Comment on above: Performed By: #### B MP #### [facility] [address] [place] [address] [place] PROTIMEon 04-07-2020 INR Coag (PPP) [Relative time] 1.11 {INR} Normal [facility] Comment on above: Performed By: #### P T, PTT #### [facility] [address] [place], [place] [address] [place] PT Coag (PPP) [Time] SEE BELOW Normal [facility] Comment on above: Result Comment: VENKATESH RED INR: 2.0 - 3.0 CONDITIONS NOT LISTED BELOW 2.5 - 3.5 FOR PROSTHETIC HEART VALVE REPLACEMENT 2.5 - 3.5 RECURRENT THROMBOSIS Performed By: #### P T, PTT #### [facility] [address] [place] [address] [place] PT Coag (PPP) [Time] 11.5 s Normal 9.0-11.6 [facility] Comment on above: Performed By: #### P T, PTT #### [facility] [address] [place], [place] [address] [place] PT Coag (PPP) [Time] PLEASE NOTE: NORMAL RANGE CHANGE 06-24-2014 DUE TO REAGENT LOT CHANGE Normal [facility] Comment on above: Performed By: #### P T, PTT #### [facility] [address] [place], [place] [address] [place] PTTon 04-07-2020 aPTT Coag (Bld) [Time] 28.8 s Normal 22.3-36.2 [facility] Comment on above: Performed By: #### P T, PTT #### [facility] [address] [place], [place] [address] [place] aPTT Coag (Bld) [Time] PLEASE NOTE: NORMAL RANGE CHANGE 08-31-2015 DUE TO REAGENT LOT CHANGE Normal [facility] Comment on above: Performed By: #### P T, PTT #### [facility] [address] [place], [place] [address] [place] XR KUB 1 VIEWon 04-07-2020 [...] ELIZABETH PERALES Date: 2020-04-07 11:55 Normal [facility] CBC AUTO DIFFon 03-10-2020 Basophils (Bld) [#/Vol] 0.1 103/ul Normal 0.0-0.1 [facility] Comment on above: Performed By: #### C BC #### [facility] [address] [place], [place] [address] [place] Basophils/100 WBC (Bld) 0.6 % Normal 0.2-2.0 [facility] Comment on above: Performed By: #### C BC #### [facility] [address] [place], [place] [address] [place] Eosinophils (Bld) [#/Vol] 0.3 103/ul Normal 0.0-0.7 [facility] Comment on above: Performed By: #### C BC #### [facility] [address] [place], [place] [address] [place] Eosinophils/100 WBC (Bld) 4.1 % Normal 0.9-7.0 [facility] Comment on above: Performed By: #### C BC #### [facility] [address] [place], [place] [address] [place] Erythrocyte distribution width (RBC) [Ratio] 15.9 % Critically high 11.0-15.0 [facility] Comment on above: Performed By: #### C BC #### [facility] [address] [place], [place] [address] [place] Hematocrit (Bld) [Volume fraction] 57.1 % Critically high 42.0-54.0 [facility] Comment on above: Performed By: #### C BC #### [facility] [address] [id number] [place] Hemoglobin (Bld) [Mass/Vol] 18.0 g/dL Normal 14.0-18.0 [facility] Comment on above: Performed By: #### C BC #### [facility] [address] [id number] [place] IG # 0.03 10e3/ul Normal 0.00-0.03 [facility] Comment on above: Performed By: #### C BC #### [facility] [address] [address] [place] IG % 0.4 % Normal 0.0-0.5 [facility] Comment on above: Performed By: #### C BC #### [facility] [address] [place] [address] [place] Lymphocytes (Bld) [#/Vol] 2.3 103/ul Normal 1.2-3.8 [facility] Comment on above: Performed By: #### C BC #### [facility] [address] [place], [place] [address] [place] Lymphocytes/100 WBC (Bld) 29.4 % Normal 20.5-60.0 [facility] Comment on above: Performed By: #### C BC #### [facility] [address] [place], [place] [address] [place] MANUAL DIFF REQ NO Normal [facility] Comment on above: Performed By: #### C BC #### [facility] [address] [place], [place] [address] [place] MCH (RBC) [Entitic mass] 29.0 pg Normal 25.9-34.0 [facility] Comment on above: Performed By: #### C BC #### [facility] [address] [place], [place] [address] [place] MCHC (RBC) [Mass/Vol] 31.5 g/dL Normal 29.9-35.2 [facility] Comment on above: Performed By: #### C BC #### [facility] [address] [place] [address] [place] MCV (RBC) [Entitic vol] 91.9 fL Normal 80.0-94.0 [facility] Comment on above: Performed By: #### C BC #### [facility] [address] [place] [address] [place] Monocytes (Bld) [#/Vol] 0.8 103/ul Normal 0.3-0.8 [facility] Comment on above: Performed By: #### C BC #### [facility] [address] [place], [place] [address] [place] Monocytes/100 WBC (Bld) 10.4 % Normal 1.7-12.0 [facility] Comment on above: Performed By: #### C BC #### [facility] [address] [place], [place] [address] [place] Neutrophils (Bld) [#/Vol] 4.3 103/ul Normal 1.4-6.5 [facility] Comment on above: Performed By: #### C BC #### [facility] [address] [place], [place] [address] [place] Neutrophils/100 WBC (Bld) 55.1 % Normal 43.0-75.0 [facility] Comment on above: Performed By: #### C BC #### [facility] [address] [place], [place] [address] [place] Platelet mean volume (Bld) [Entitic vol] 10.8 fL Normal 9.5-13.5 [facility] Comment on above: Performed By: #### C BC #### [facility] [address] [place] [address] [place] Platelets (Bld) [#/Vol] 183 103/ul Normal 150-450 [facility] Comment on above: Performed By: #### C BC #### [facility] [address] [place], [place] [address] [place] RBC (Bld) [#/Vol] 6.21 106/ul Critically high 4.70-6.10 [facility] Comment on above: Performed By: #### C BC #### [facility] [address] [place], [place] [address] [place] WBC (Bld) [#/Vol] 7.8 103/ul Normal 4.0-11.0 [facility] Comment on above: Performed By: #### C BC #### [facility] [address] [place], [place] [address] [place] PROF CHEM 8 (BAS METB)on Anion gap [Moles/Vol] 16.6 mmol/L Normal [facility] Comment on above: Performed By: #### B MP #### [facility] [address] [id number] [place] Calcium [Mass/Vol] 9.2 mg/dL Normal 8.4-10.2 [facility] Comment on above: Performed By: #### B MP #### [facility] [address] [place] [address] [place] Chloride [Moles/Vol] 102 mmol/L Normal 98-107 [facility] Comment on above: Performed By: #### B MP #### [facility] [address] [id number] [place] CO2 [Moles/Vol] 27.0 mmol/L Normal 22.0-30.0 [facility] Comment on above: Performed By: #### B MP #### [facility] [address] [id number] [place] Creatinine [Mass/Vol] 1.22 mg/dL Normal 0.66-1.25 [facility] Comment on above: Performed By: #### B MP #### [facility] [address] [id number] [place] EGFR-AF PORTUGUESE >60 Normal >=60 [facility] Comment on above: Performed By: #### B MP #### [facility] [address] [id number] [place] EGFR-NON AF PORTUGUESE 58 mL/min/1.73m2 Critically low >=60 [facility] Comment on above: Performed By: #### B MP #### [facility] [address] [id number] [place] Glucose [Mass/Vol] 100 mg/dL Normal 74-106 [facility] Comment on above: Performed By: #### B MP #### [facility] [address] [id number] [place] Potassium [Moles/Vol] 4.6 mmol/L Normal 3.4-5.0 [facility] Comment on above: Performed By: #### B MP #### [facility] [address] [id number] [place] Sodium [Moles/Vol] 141 mmol/L Normal 137-145 [facility] Comment on above: Performed By: #### B MP #### [facility] [address] [id number] [place] Urea nitrogen [Mass/Vol] 15.0 mg/dL Normal 9.0-20.0 [facility] Comment on above: Performed By: #### B MP #### [facility] [address] [id number] [place] Urea nitrogen/Creatinine [Mass ratio] 12.3 mg/mg Normal [facility] Comment on above: Performed By: #### B MP #### [facility] [address] [id number] [place] PROTIMEon 03-10-2020 INR Coag (PPP) [Relative time] 1.03 {INR} Normal [facility] Comment on above: Performed By: #### P TT, PT #### [facility] [address] [id number] [place] PT Coag (PPP) [Time] SEE BELOW Normal [facility] Comment on above: Result Comment: VENKATESH RED INR: 2.0 - 3.0 CONDITIONS NOT LISTED BELOW 2.5 - 3.5 FOR PROSTHETIC HEART VALVE REPLACEMENT 2.5 - 3.5 RECURRENT THROMBOSIS Performed By: #### P TT, PT #### [facility] [address] [id number] [place] PT Coag (PPP) [Time] PLEASE NOTE: NORMAL RANGE CHANGE 06-24-2014 DUE TO REAGENT LOT CHANGE Normal [facility] Comment on above: Performed By: #### P TT, PT #### [facility] [address] [place] [address] [place] PT Coag (PPP) [Time] 10.7 s Normal 9.0-11.6 [facility] Comment on above: Performed By: #### P TT, PT #### [facility] [address] [place], [place] [id number] [place] PTTon 03-10-2020 aPTT Coag (Bld) [Time] 27.2 s Normal 22.3-36.2 [facility] Comment on above: Performed By: #### P TT, PT #### [facility] [address] [place] [address] [place] aPTT Coag (Bld) [Time] PLEASE NOTE: NORMAL RANGE CHANGE 08-31-2015 DUE TO REAGENT LOT CHANGE Normal [facility] Comment on above: Performed By: #### P TT, PT #### [facility] [address] [place] [address] [place] XR KUB 1 VIEWon 03-10-2020 [...] NELA DOVE Date: 2020-03-10 09:41 Normal [facility] CALCULI, URINARYon 0 2,8 Dihydroxyadenine Normal [facility] Comment on above: Performed By: #### C ALCULI #### [facility] [address] [place] [address] [place] Ammonium Acid Urate Normal [facility] Comment on above: Performed By: #### C ALCULI #### [facility] [address] [place] [address] [place] Bilirubin [Mass/Vol] Normal [facility] Comment on above: Performed By: #### C ALCULI #### [facility] [address] [place] [address] [place] Ca Oxalate Dihydrate 10 % Normal [facility] Comment on above: Performed By: #### C ALCULI #### [facility] [address] [place] [address] [place] CaHPO4 (Brushite) Normal [facility] Comment on above: Performed By: #### C ALCULI #### [facility] [address] [place] [address] [place] Calcium Bilirubinate Normal [facility] Comment on above: Performed By: #### C ALCULI #### [facility] [address] [place] [address] [place] Calcium Carbonate Normal [facility] Comment on above: Performed By: #### C ALCULI #### [facility] [address] [place] [address] [place] Calcium Oxalate Monohydrate 90 % Normal [facility] Comment on above: Performed By: #### C ALCULI #### [facility] [address] [place] [address] [place] Calcium Palmitate Normal [facility] Comment on above: Performed By: #### C ALCULI #### [facility] [address] [place] [address] [place] Calcium Phosphate Normal [facility] Comment on above: Performed By: #### C ALCULI #### [facility] [address] [place] [address] [place] Calcium Stearate Normal [facility] Comment on above: Performed By: #### C ALCULI #### [facility] [address] [place] [address] [place] Carbonate Apatite Normal [facility] Comment on above: Performed By: #### C ALCULI #### [facility] [address] [place] [address] [place] Cellular Material Normal [facility] Comment on above: Performed By: #### C ALCULI #### [facility] [address] [address] [place] Cholesterol [Mass/Vol] Normal [facility] Comment on above: Performed By: #### C ALCULI #### [facility] [address] [address] [place] Color (U) Tiwari Normal [facility] Comment on above: Performed By: #### C ALCULI #### [facility] [address] [address] [place] Comment Normal [facility] Comment on above: Performed By: #### C ALCULI #### [facility] [address] [place] [address] [place] Comment: Comment Normal [facility] Comment on above: Result Comment: Dillan kraft questions regarding Calculi Analysis contact [facility] at: [phone]. Performed By: #### C ALCULI #### [facility] [address] [place] [address] [place] Composition Comment Normal [facility] Comment on above: Result Comment: Perc entage (Represents the % composition) Performed By: #### C ALCULI #### [facility] [address] [place] [address] [place] Cystine Normal [facility] Comment on above: Performed By: #### C ALCULI #### [facility] [address] [place] [address] [place] Disclaimer: Comment Normal [facility] Comment on above: Result Comment: This test was developed and its performance characteristics determined by [facility]. It has not been cleared or approved by the Food and Drug Administration. Performed By: #### C ALCULI #### [facility] [address] [place] [address] [place] Dried Blood Normal [facility] Comment on above: Performed By: #### C ALCULI #### [facility] [address] [place] [address] [place] Drug or Metabolite Normal [facility] Comment on above: Performed By: #### C ALCULI #### [facility] [address] [address] [place] Hydroxyapatite Normal [facility] Comment on above: Performed By: #### C ALCULI #### [facility] [address] [address] [place] Mg NH4 PO4 (Struvite) Normal [facility] Comment on above: Performed By: #### C ALCULI #### [facility] [address] [address] [place] MgHPO4 (Newberyite) Normal [facility] Comment on above: Performed By: #### C ALCULI #### [facility] [address] [address] [place] Other component(s) Normal [facility] Comment on above: Performed By: #### C ALCULI #### [facility] [address] [address] [place] PDF . Normal [facility] Comment on above: Performed By: #### C ALCULI #### [facility] [address] [address] [place] Photo Comment Normal [facility] Comment on above: Result Comment: Phot ograph will follow under a separate cover Performed By: #### C ALCULI #### [facility] [address] [address] [place] Please note: Comment Normal [facility] Comment on above: Result Comment: Calc pee report will follow via computer, mail or clinical social work aide delivery. Performed By: #### C ALCULI #### [facility] [address] [address] [place] Size 4x3 Normal [facility] Comment on above: Result Comment: Sing le piece received. Performed By: #### C ALCULI #### [facility] [address] [address] [place] Sodium (U) [Moles/Vol] [facility] Comment on above: Performed By: #### C ALCULI #### [facility] [address] [address] [place] Source Comment Normal [facility] Comment on above: Result Comment: Left Ureter Performed By: #### C ALCULI #### [facility] [address] [id number] [place] Triamterene Normal [facility] Comment on above: Performed By: #### C ALCULI #### [facility] [address] [id number] [place] Urate [Mass/Vol] Normal [facility] Comment on above: Performed By: #### C ALCULI #### [facility] [address] [address] [place] Uric Acid Dihydrate Normal [facility] Comment on above: Performed By: #### C ALCULI #### [facility] [address] [address] [place] Weight 32 mg Normal [facility] Comment on above: Performed By: #### C ALCULI #### [facility] [address] [address] [place] Xanthine Normal [facility] Comment on above: Performed By: #### C ALCULI #### [facility] [address] [id number] [place] Lipid Panelon 01-27-2019 Cholesterol in HDL mass conc 34 mg/dL Low 40-59 [facility] Comment on above: Result Comment: ATP III [...] CHD Performed By: #### L IPID #### [facility] [address] [place] [address] Cholesterol in LDL mass conc 114 mg/dL Normal 0-129 [facility] Comment on above: Result Comment: ATP III LDL Classification is Near Optimal. Performed By: #### L IPID #### [facility] [address] [place] [address] Cholesterol mass conc 170 mg/dL Normal 0-199 [facility] Comment on above: Result Comment: ATP III Cholesterol classification is Desirable. Performed By: #### L IPID #### [facility] [address] [place] [address] Triglyceride mass conc 112 mg/dL Normal 0-150 [facility] Comment on above: Result Comment: ATP III Triglycerides Classification is Normal. Effective: 11/13/2018 New reference range for this analyte has been established. Performed By: #### L IPID #### [facility] [address] [place] [address] VITAMIN Don 01-27-2019 VITAMIN D 34.2 ng/mL Normal 30.0-100.0 [facility] Comment on above: Result Comment: (30- 100 ng/mL) Optimum Level This assay accurately quantifies the sum of vitamin D3, 25-Hydroxy and vitamin D2, 25-Hyroxy. Performed By: #### V ITD #### [facility] [address] [place] [address] Vitamin B12 and Folateon Cobalamin (Vitamin B12) mass conc 886 pg/mL Normal 232-1245 [facility] Comment on above: Performed By: #### B 12FO #### [facility] [address] [place] [address] Folate >20.0 Normal 7.3-26.1 [facility] Comment on above: Result Comment: As o f 16, the methodology has changed. Results from this methodology should not be compared with results from previous methodology. Performed By: #### B 12FO #### [facility] [address] [place] [address] Acetaminophenon 01-26-2019 Acetaminophen mass conc <5 Low 10-30 [facility] Comment on above: Performed By: #### A CETM #### [facility] [address] [place] [address] Alcoholon 01-26-2019 Ethanol mass conc mg/dL Normal [facility] Comment on above: Performed By: #### A LCOH #### [facility] [address] [place] [address] Ethanol mass conc Not indicated Normal [facility] Comment on above: Performed By: #### A LCOH #### [facility] [address] [place] [address] CBC With Platelet and Differ entialon 01-26-2019 Basophils #/vol (Bld) 0.1 10*3/uL Normal 0.0-0.2 [facility] Comment on above: Performed By: #### C BCWD #### [facility] [address] [place] [address] Basophils/100 WBC (Bld) 0.9 % Normal [facility] Comment on above: Performed By: #### C BCWD #### [facility] [address] [place] [address] Eosinophils #/vol (Bld) 0.2 10*3/uL Normal 0.0-0.7 [facility] Comment on above: Performed By: #### C BCWD #### [facility] [address] [place] [address] Eosinophils/100 WBC (Bld) 2.2 % Normal [facility] Comment on above: Performed By: #### C BCWD #### [facility] [address] [place] [address] Erythrocyte distribution width Ratio (RBC) 13.9 % Normal 11.5-14.5 [facility] Comment on above: Performed By: #### C BCWD #### [facility] [address] [place] [address] Hematocrit Volume Fraction (Bld) 55.4 % Critically high 42.0-52.0 [facility] Comment on above: Performed By: #### C BCWD #### [facility] [address] [place] [address] Hemoglobin mass conc (Bld) 18.3 g/dL Critically high 14.0-18.0 [facility] Comment on above: Performed By: #### C BCWD #### [facility] [address] [place] [address] Lymphocytes #/vol (Bld) 2.4 10*3/uL Normal 1.0-4.8 [facility] Comment on above: Performed By: #### C BCWD #### [facility] [address] [place] [address] Lymphocytes/100 WBC (Bld) 26.2 % Normal [facility] Comment on above: Performed By: #### C BCWD #### [facility] [address] [place] [address] MCH Entitic mass (RBC) 31.2 pg Normal 27.0-31.3 [facility] Comment on above: Performed By: #### C BCWD #### [facility] [address] [place] [address] MCHC mass conc (RBC) 33.0 % Normal 33.0-37.0 [facility] Comment on above: Performed By: #### C BCWD #### [facility] [address] [place] [address] MCV Entitic volume (RBC) 94.7 fL Normal 80.0-100.0 [facility] Comment on above: Performed By: #### C BCWD #### [facility] [address] [place] [address] Monocytes #/vol (Bld) 0.9 10*3/uL Critically high 0.2-0.8 [facility] Comment on above: Performed By: #### C BCWD #### [facility] [address] [place] [address] Monocytes/100 WBC (Bld) 9.6 % Normal [facility] Comment on above: Performed By: #### C BCWD #### [facility] [address] [place] [address] Neutrophils #/vol (Bld) 5.6 10*3/uL Normal 1.4-6.5 [facility] Comment on above: Performed By: #### C BCWD #### [facility] [address] [place] [address] Neutrophils/100 WBC (Bld) 61.1 % Normal [facility] Comment on above: Performed By: #### C BCWD #### [facility] [address] [place] [address] Platelets #/vol (Bld) 176 10*3/uL Normal 130-400 [facility] Comment on above: Performed By: #### C BCWD #### [facility] [address] [place] [address] RBC #/vol (Bld) 5.85 10*6/uL Normal 4.70-6.10 [facility] Comment on above: Performed By: #### C BCWD #### [facility] [address] [place] [address] WBC #/vol (Bld) 9.2 10*3/uL Normal 4.8-10.8 [facility] Comment on above: Performed By: #### C BCWD #### [facility] [address] [place] [address] Comprehensive Metabolic Pane manuel 01-26-2019 Anion gap molar conc 12 mmol/L Normal 9-15 [facility] Comment on above: Result Comment: Effe ctive: 11/13/2018 New reference range for this analyte has been established. Performed By: #### C MP #### [facility] [address] [place] [address] Albumin mass conc 4.1 g/dL Normal 3.5-4.6 [facility] Comment on above: Result Comment: Effe ctive: 11/13/2018 New reference range for this analyte has been established. Performed By: #### C MP #### [facility] [address] [place] [address] ALP enzyme act/vol 77 U/L Normal 35-104 [facility] Comment on above: Performed By: #### C MP #### [facility] [address] [place] [address] ALT enzyme act/vol 28 U/L Normal 0-41 [facility] Comment on above: Performed By: #### C MP #### [facility] [address] [place] [address] AST enzyme act/vol 23 U/L Normal 0-40 [facility] Comment on above: Performed By: #### C MP #### [facility] [address] [place] [address] Bilirubin mass conc 0.8 mg/dL Critically high 0.2-0.7 [facility] Comment on above: Result Comment: Effe ctive: 11/13/2018 New reference range for this analyte has been established. Performed By: #### C MP #### [facility] [address] [place] [address] Calcium mass conc 9.3 mg/dL Normal 8.5-9.9 [facility] Comment on above: Result Comment: Effe ctive: 11/13/2018 New reference range for this analyte has been established. Performed By: #### C MP #### [facility] [address] [place] [address] Chloride molar conc 100 mmol/L Normal 95-107 [facility] Comment on above: Result Comment: Effe ctive: 11/13/2018 New reference range for this analyte has been established. Performed By: #### C MP #### [facility] [address] [place] [address] CO2 molar conc 26 mmol/L Normal 20-31 [facility] Comment on above: Result Comment: Effe ctive: 11/13/2018 New reference range for this analyte has been established. Performed By: #### C MP #### [facility] [address] [place] [address] Creatinine mass conc 1.02 mg/dL Normal 0.70-1.20 [facility] Comment on above: Performed By: #### C MP #### [facility] [address] [place] [address] GFR/1.73 sq M predicted among blacks MDRD vol rate/area (S/P/Bld) mL/min/{1.73_m2} Normal >60 [facility] Comment on above: Result Comment: >60 mL/min/1.73m2 EGFR, calc. for ages 18 and older using the MDRD formula (not corrected for weight), is valid for stable renal function. Performed By: #### C MP #### [facility] [address] [place] [address] GFR/1.73 sq M.predicted MDRD vol rate/area mL/min/{1.73_m2} Normal >60 [facility] Comment on above: Result Comment: >60 mL/min/1.73m2 EGFR, calc. for ages 18 and older using the MDRD formula (not corrected for weight), is valid for stable renal function. Performed By: #### C MP #### [facility] [address] [place] [address] Globulin mass conc (S) 2.7 g/dL Normal 2.3-3.5 [facility] Comment on above: Performed By: #### C MP #### [facility] [address] [place] [address] Glucose mass conc 94 mg/dL Normal 70-99 [facility] Comment on above: Result Comment: Effe ctive: 11/13/2018 New reference range for this analyte has been established. Performed By: #### C MP #### [facility] [address] [place] [address] Potassium molar conc 4.5 mmol/L Normal 3.4-4.9 [facility] Comment on above: Result Comment: Effe ctive: 11/13/2018 New reference range for this analyte has been established. Performed By: #### C MP #### [facility] [address] [place] [address] Protein mass conc 6.8 g/dL Normal 6.3-8.0 [facility] Comment on above: Result Comment: Effe ctive: 11/13/2018 New reference range for this analyte has been established. Performed By: #### C MP #### [facility] [address] [place] [address] Sodium molar conc 138 mmol/L Normal 135-144 [facility] Comment on above: Result Comment: Effe ctive: 11/13/2018 New reference range for this analyte has been established. Performed By: #### C MP #### [facility] [address] [place] [address] Urea nitrogen mass conc 13 mg/dL Normal 8-23 [facility] Comment on above: Performed By: #### C MP #### [facility] [address] [place] [address] Creatine Kinaseon 01-26-2019 CK enzyme act/vol 92 U/L Normal 0-190 [facility] Comment on above: Performed By: #### C PK #### [facility] [address] [place] [address] Culture, Urineon 01-26-2019 Culture, Urine ORDERED BY: CHASIDY BOLAÑOS SOURCE: Urine Clean Catch COLLECTED: 01/25/19 23:30 ANTIBIOTICS AT ROD.: RECEIVED : 01/25/19 23:46 Culture, Urine FINAL 01/27/19 07:51 No growth 24 hours Normal [facility] Comment on above: Performed By: #### C BCWD #### [facility] [address] [place] [address] Salicylateon 01-26-2019 Salicylate <0.3 Low 15.0-30.0 [facility] Comment on above: Result Comment: Anti -pyretic: 3.0-10.0 mg/dL Anti-inflammatory: 15.0-30.0 mg/dL Toxic: >30.0 mg/dL Performed By: #### S ALIC #### [facility] [address] [place] [address] TSH w/out Reflexon 9 Thyrotropin Qn 2.670 uIU/mL Normal 0.440-3.86 [facility] Comment on above: Result Comment: Effe ctive: 11/13/2018 New reference range for this analyte has been established. Performed By: #### T SH #### [facility] [address] [place] [address] UR Drugs of Abuse Panelon Drug Screen Comment see below Normal [facility] Comment on above: Result Comment: This method is a screening test to detect only these drug classes as part of a medical workup. Confirmatory testing by another method should be ordered if clinically indicated. Performed By: #### U DRGS #### [facility] [address] [place] [address] UR Amphetamines Screen Negative Normal Negative < [facility] Comment on above: Performed By: #### U DRGS #### [facility] [address] [place] [address] UR Barbiturates Screen Negative Normal Negative < [facility] Comment on above: Performed By: #### U DRGS #### [facility] [address] [place] [address] UR Benzo Screen Negative Normal Negative < [facility] Comment on above: Performed By: #### U DRGS #### [facility] [address] [place] [address] UR Cannabinoids Screen Negative Normal Negative < [facility] Comment on above: Performed By: #### U DRGS #### [facility] [address] [place] [address] UR Cocaine Screen Negative Normal Negative < [facility] Comment on above: Performed By: #### U DRGS #### [facility] [address] [place] [place] [address] UR Opiates Screen Negative Normal Negative < [facility] Comment on above: Performed By: #### U DRGS #### [facility] [address] [place] [address] UR PCP Screen Negative Normal Negative < [facility] Comment on above: Performed By: #### U DRGS #### [facility] [address] [place] [address] Urinalysis, reflex to cultur caroline 01-26-2019 Bilirubin Ql (U) Negative Normal Negative [facility] Comment on above: Performed By: #### U AR #### [facility] [address] [place] [address] Clarity Nom (U) Clear Normal [facility] Comment on above: Performed By: #### U AR #### [facility] [address] [place] [address] Color Nom (U) Yellow Normal St[facility] Comment on above: Performed By: #### U AR #### [facility] [address] [place] [address] Glucose Ql (U) Negative Normal Negative [facility] Comment on above: Performed By: #### U AR #### [facility] [address] [place] [address] Hemoglobin Ql (U) Negative Normal Negative [facility] Comment on above: Performed By: #### U AR #### [facility] [address] [place] [address] Ketones Ql (U) 15 mg/dL Abnormal Negative [facility] Comment on above: Performed By: #### U AR #### [facility] [address] [place] [address] Leukocyte esterase Test strip Ql (U) SMALL Abnormal Negative [facility] Comment on above: Performed By: #### U AR #### [facility] [address] [place] [address] Nitrite Ql (U) Negative Normal Negative [facility] Comment on above: Performed By: #### U AR #### [facility] [address] [place] [address] pH (U) 5.0 [pH] Normal 5.0-9.0 [facility] Comment on above: Performed By: #### U AR #### [facility] [address] [place] [address] Protein Ql (U) Negative Normal Negative [facility] Comment on above: Performed By: #### U AR #### [facility] [address] [place] [address] Specific gravity Relative Density (U) 1.022 Normal 1.005-1.03 [facility] Comment on above: Performed By: #### U AR #### [facility] [address] [place] [address] Urine Reflexed to Culture YES Normal [facility] Comment on above: Performed By: #### U AR #### [facility] [address] [place] [address] Urobilinogen Qn (U) 0.2 {Amadeo'U}/dL Normal < 2.0 [facility] Comment on above: Performed By: #### U AR #### [facility] [address] [place] [address] Urine Microscopicon 01-27-20 19 RBC #/vol (U) 0-2 Normal 0-2 [facility] Comment on above: Performed By: #### U AL #### [facility] [address] [place] [address] Bacteria LM.HPF #/area (Urine sed) Negative Normal [facility] Comment on above: Performed By: #### U AL #### [facility] [address] [place] [address] Urine Epithelial Cells Auto 3-5 Normal 0-5 [facility] Comment on above: Result Comment: Effe ctive 09/01/2018 Urinalysis microscopic performed using the automated methodology (AUWI analyzer). Performed By: #### U AL #### [facility] [address] [place] [address] Urine WBC Auto 3-5 Normal 0-5 [facility] Comment on above: Result Comment: Lakeshia fonseca 09/01/2018 Urinalysis microscopic performed using the automated methodology (AUWI analyzer). Performed By: #### U AL #### [facility] [address] [place] [address] Vital Signs Date Time Vital Sign Value Performing Clinician Facility 11-01-2023 14:30-0500 Blood Pressure Location Julio FORBES [facility] 11-01-2023 14:30-0500 Diastolic blood pressure 89 mm[Hg] Julio FORBES [facility] 11-01-2023 14:30-0500 Heart rate 54 /min Julio FORBES [facility] 11-01-2023 14:30-0500 Respiratory rate 16 /min Julio FORBES [facility] 11-01-2023 14:30-0500 Systolic blood pressure 92 mm[Hg] Julio FORBES [facility] 10-09-2023 13:47-0500 Blood Pressure Location Julio FORBES [facility] 10-09-2023 13:47-0500 Diastolic blood pressure 65 mm[Hg] Julio FORBES [facility] 10-09-2023 13:47-0500 Heart rate 74 /min Julio FORBES [facility] 10-09-2023 13:47-0500 Systolic blood pressure 132 mm[Hg] Julio FORBES [facility] 06-27-2023 13:47-0400 Diastolic blood pressure 64 mm[Hg] [employer] Amelia Eisenstein Work Phone: [facility] 06-27-2023 13:47-0400 Heart rate 56 /min [employer] Amelia Eisenstein Work Phone: [facility] 06-27-2023 13:47-0400 Respiratory rate 18 /min [employer] Amelia Eisenstein Work Phone: [facility] 06-27-2023 13:47-0400 SaO2% (BldA) [Mass fraction] 97 % [employer] Amelia Eisenstein Work Phone: [facility] 06-27-2023 13:47-0400 Systolic blood pressure 100 mm[Hg] [employer] Amelia Eisenstein Work Phone: [facility] 06-27-2023 11:58-0400 Body height 187.96 cm [employer] Amelia Eisenstein Work Phone: [facility] 06-27-2023 11:58-0400 Body temperature 97.6 [degF] [employer] Amelia Eisenstein Work Phone: [facility] 06-27-2023 11:58-0400 Body weight 81.64 kg [employer] Amelia Eisenstein Work Phone: [facility] 04-04-2023 14:10-0400 Diastolic blood pressure 61 mm[Hg] [employer] Amelia Eisenstein Work Phone: [facility] 04-04-2023 14:10-0400 Heart rate 64 /min [employer] Amelia Eisenstein Work Phone: [facility] 04-04-2023 14:10-0400 Respiratory rate 16 /min [employer] Amelia Eisenstein Work Phone: [facility] 04-04-2023 14:10-0400 SaO2% (BldA) [Mass fraction] 93 % [employer] Amelia Batista Work Phone: [facility] 04-04-2023 14:10-0400 Systolic blood pressure 95 mm[Hg] [employer] Amelia Batista Work Phone: [facility] 04-04-2023 11:52-0400 Body height 187.96 cm [employer] Amelia Batista Work Phone: [facility] 04-04-2023 11:52-0400 Body temperature 97.7 [degF] [employer] Amelia Batista Work Phone: [facility] 04-04-2023 11:52-0400 Body weight 79.37 kg [employer] Amelia Batista Work Phone: [facility] 04-03-2023 12:58-0400 Blood Pressure Location Julio FORBES [facility] 04-03-2023 12:58-0400 Diastolic blood pressure 57 mm[Hg] Julio FORBES [facility] 04-03-2023 12:58-0400 Heart rate 55 /min Julio FORBES [facility] 04-03-2023 12:58-0400 Systolic blood pressure 88 mm[Hg] Julio FORBES [facility] 11-06-2021 16:30-0500 Body height 187.96 cm Trino Crain Other [employer] Other 11-06-2021 16:30-0500 Body mass index (BMI) [Ratio] 23.24 kg/m2 Trino Crain Other [employer] Other 11-06-2021 16:30-0500 Body weight 82.1 kg Trino Crain Other [employer] Other Encounters Encounter Date Encounter Type Care Provider Facility Start: 11-12-2023 End: 11-13-2023 ambulatory Juilo FORBES Facility:[facility] Start: 11-01-2023 End: 11-01-2023 Patient encounter procedure Julio FORBES [facility] Start: 11-01-2023 End: 11-02-2023 ambulatory Julio FORBES Facility:[facility] Start: 10-25-2023 End: 10-28-2023 ambulatory LINO S [facility] Start: 10-25-2023 ambulatory [facility] Ambulatory [facility] Start: 10-25-2023 End: 10-27-2023 Evaluation and management of inpatient TRINO M [facility] Start: 10-24-2023 End: 10-25-2023 Emergency department patient visit [facility] Facility:[facility] Start: 10-18-2023 End: 10-18-2023 Emergency department patient visit [facility] Facility:[facility] Start: 10-17-2023 End: 10-18-2023 ambulatory Julio FORBES Facility:[id number] Start: 10-12-2023 End: 10-12-2023 Emergency department patient visit [facility] Facility:[facility] Start: 10-09-2023 End: 10-10-2023 ambulatory Julio FORBES Facility:[facility] Start: 10-09-2023 End: 10-09-2023 Patient encounter procedure Julio FORBES [facility] Start: 10-02-2023 End: 10-03-2023 ambulatory Amelia Eisenstein Facility:[facility] Start: 09-07-2023 End: 09-07-2023 Emergency department patient visit Mohan Hogan Facility:[facility] Start: 06-28-2023 End: 06-29-2023 ambulatory Mirian Zazueta Facility:[facility] Start: 06-27-2023 End: 06-27-2023 ambulatory Imad Asaad Facility:[facility] Start: 06-27-2023 End: 06-27-2023 Admission to same day surgery center [employer] Amelia Eisenstein Work Phone: [facility] Work Phone: Start: 06-27-2023 End: 06-27-2023 ambulatory [employer] Amelia Eisenstein Work Phone: [facility] Work Phone: Start: 04-08-2023 End: 04-08-2023 ambulatory Imad Asaad Other [facility] [employer] Other Start: 04-08-2023 Telephone encounter Imad Asaad [facility] Start: 04-04-2023 End: 04-04-2023 ambulatory Amelia Eisenstein Facility:[facility] Start: 04-04-2023 End: 04-04-2023 Admission to same day surgery center [employer] Amelia Eisenstein Work Phone: [facility] Work Phone: Start: 04-04-2023 End: 04-04-2023 ambulatory [employer] Amelia Eisenstein Work Phone: [facility] Work Phone: Start: 04-03-2023 End: 04-04-2023 ambulatory Julio FORBES Facility: [place] Start: 04-03-2023 End: 04-03-2023 Patient encounter procedure Julio FORBES [facility] Start: 03-26-2023 End: 03-27-2023 ambulatory Ameila Batista Facility:[facility] Start: 11-16-2022 End: 11-16-2022 ambulatory Trino Crain Other [employer] Other Start: 11-16-2022 Office outpatient visit 15 minutes Trino Crain [facility] Start: 08-08-2022 End: 08-08-2022 ambulatory Trino Crain Other [employer] Other Start: 08-08-2022 Office outpatient visit 15 minutes Trino Crain [facility] Start: 04-25-2022 End: 04-25-2022 Lab Drop off Julio FORBES [facility] Start: 04-25-2022 End: 04-25-2022 Patient encounter procedure Julio FORBES [facility] Start: 11-07-2021 End: 11-07-2021 ambulatory Nela Alegria Other [employer] Other Start: 11-07-2021 Telephone encounter Nela Alegria [facility] Start: 11-06-2021 End: 11-06-2021 ambulatory Nela Alegria Other [employer] Other Start: 11-06-2021 Office outpatient ne w 30 minutes Trino Crain [facility] Start: 11-06-2021 Telephone encounter Nela Alegria [facility] Start: 04-07-2020 End: 04-07-2020 Patient encounter procedure JULIO FORBES Facility:[facility] Start: 04-04-2020 Patient encounter procedure JULIO FORBES Facility:[facility] Start: 03-10-2020 End: 03-10-2020 Patient encounter procedure JULIO FORBES Facility:[facility] Start: 02-03-2020 End: 02-03-2020 Patient encounter procedure JULIO FORBES Facility:[facility] Start: 01-26-2019 End: 01-26-2019 Emergency department patient visit BIRGIT AGUIRRERene BAIRES [facility] Procedures Date Procedure Procedure Detail Performing Clinician Start: 10-17-2023 Transurethral cystoscopy Julio FORBSE Start: 10-07-2023 Imaging guided percutaneous drainage of kidney Julio FORBES Start: 06-27-2023 Esophagogastroduodenoscopy [employer] Amelia Qureshimaria victoria Work Phone: Start: 04-04-2023 Esophagogastroduodenoscopy [employer] Amelia Eismaria victoria Work Phone: Start: 04-25-2020 Extracorporeal shockwave lithotripsy [...] BAIRES Start: 01-26-2019 Urinalysis microscopic only BIRGIT SINGLETON Extraction of wisdom tooth P stefani FORBES Nasal sinus structur e (body structure) Juliorubi FORBES Tonsillectomy and adenoidectomy Julio ANDREI Plan of Treatment Date Care Activity Detail Author Start: 11-21-2023 ambulatory Ambulatory Facility:C [id number] Start: 06-27-2023 [facility] Start: 04-04-2023 [facility] Patient Education [facility] Work Phone: Immunizations Immunization Date Immunization Notes Care Provider Fa cili 07-04-2023 influenza virus vaccine, unspecified formulation Julio FORBES [facility] 03-08-2023 pneumococcal 20-vinita nt conjugate vaccine Julio FORBES [facility] 03-08-2023 SARS-CoV-2 (COVID-19 ) mRNAMUL.ORD![id number] Julio ANDREI [facility] 07-06-2022 influenza virus vaccine, unspecified formulation Julio ANDREI [facility] 07-06-2022 SARS-CoV-2 (COVID-19 ) mRNAMUL.ORD![id number] Julio FORBES [facility] 01-05-2022 SARS-CoV-2 mRNA (irtophtmerp-uopt-zscp ose) vaccine Julio ANDREI [facility] 07-13-2021 zoster vaccine recombinant Julio FORBES [facility] 07-10-2021 influenza virus vaccine, unspecified formulation Julio FORBES [facility] 09-27-2021 SARS-CoV-2 (COVID-19 ) mRNA BNT-162b2 vax Julio FORBES [facility] 06-08-2021 COVID-19 mRNA, Comirnaty (Pfizer) [employer] Amelia Qureshienstein Work Phone: [facility] 11-24-2020 COVID-19 mRNA, Comirnaty (Pfizer) [employer] Amelia Eisenstein Work Phone: [facility] Comment on above: Result Comment: 2022: [id number] 11-03-2020 COVID-19 mRNA, Comirnaty (Pfizer) SUPER[employer]OR [employer] Amelia Kieraenstein Work Phone: [facility] Comment on above: Result Comment: 2022: [id number] 10-22-2018 zoster vaccine recombinant Julio FORBES [facility] 05-20-2018 zoster vaccine recombinant Julio FORBES [facility] 07-31-2015 tetanus and diphther ia toxoids, adsorbed, preservative free, for adult use (2 Lf of tetanus toxoid and 2 Lf of diphtheria toxoid) Julio FORBES [facility] Payers Date Payer Category Payer Medicare [id number] 2019 Medicare [id number] 1960 Medicare [id number] 1959 Unknown [id number] 1945 Unknown [id number] 2.16.8 40.1.613229.3.579.2.182 1944 Unknown [id number] 2.16.84 0.1.285084.3.579.2.593 1944 Unknown [id number] 2.16.84 0.1.873927.3.579.2.593 1944 Unknown [id number] 2.16.84 0.1.211808.3.579.2.593 1944 Unknown [id number] 2.16.84 0.1.585846.3.579.2.593 1944 Unknown [id number] 2.16.84 0.1.926873.3.579.2.128 1944 Unknown [id number] 2.16.84 0.1.311743.3.579.2.128 1944 Unknown [id number] 2.16.8 40.1.931828.3.579.2.128 1944 Unknown [id number] 2.16.8 40.1.518058.3.579.2.1285 1944 Unknown [id number] 2.16.8 40.1.392764.3.579.2.71 1944 Unknown [id number] 2.16.8 40.1.958296.3.579.2.71 1944 Unknown [id number] 2.16.8 40.1.770788.3.579.2. 1944 Unknown [id number] 2.16.8 40.1.580258.3.579.2. 1944 Unknown [id number] 2.16.8 40.1.481761.3.579.2.71 1944 Unknown [id number] 2.16.8 40.1.109726.3.579.2. 1944 Unknown [id number] 2.16.8 40.1.265254.3.579.2. 1944 Unknown [id number] 2.16.8 40.1.728104.3.579.2. 1944 Unknown [id number] 2.16.8 40.1.007298.3.579.2.72 1944 Unknown [id number] 2.16.8 40.1.753470.3.579.2.727 1944 Unknown [id number] 2.16.8 40.1.646039.3.579.2.727 1944 Unknown [id number] 2.16.8 40.1.254062.3.579.2.727 1944 Unknown [id number] 2.16.8 40.1.183027.3.579.2.727 Self-pay Self Pay [id number] Social History Date Type Detail Facility Sex Assigned At [employer] Other Start: 03-22-2021 End: 10-09-2023 Tobacco smoking status Ex-smoker (finding) [facility] Tobacco smoking status Never [facility] Start: 1945 Sex Assigned At Male F [facility] Goals Date Patient Goal Desired Activity /State Functional Status Date Assessment Result Facility 11-01-2023 Functional Status N/A [facility] 10-09-2023 Functional Status N/A [facility] 04-03-2023 Functional Status N/A [facility] Clinical Notes 11-06-2021 to 11-01-2023 Note Date & Type Note Facility 11-01-2023 Hospital Discharg e instructions Patient Education 11/01/2023 14:35:11 Kidney Stones, Apgs-ka-Rohv Kidney Stones Kidney stones are rock-like masses [...] Follow these instructions at home: Medicines Take rslc-voo-xoyictm and prescription medicines only as told by [...] provider. Document Revised: 05/28/2022 Document Reviewed: 05/28/2022 [employer] Patient Education 2022 [employer] [facility] Up [facility] 10/29/2023 16:41:26 With:ANDREI WEEKS, Julio Woods, URL Address: [facility] [address] , [place] [phone] When: Unknown Comments:Will schedule Cysto, RG pos. stent removal in a few weeks. [facility] 10-18-2023 Note Education Materials Urology Ureteral [...] these instructions at home: Medicines ? Take ruta-ysa-vrzemvg and prescription medicines only as told by [...] blood in your urine increases. ? Take uunr-wsu-urojfhh and prescription medicines only as told by your health care provider. ? Drink enough fluid to keep your urine pale yellow. This information is not intended to replace advice given to you by your health care provider. Make sure you discuss any questions you have with your health care provider. Document Revised: 08/20/2022 Document Reviewed: 07/30/2022 [employer] Patient Education ? 2021 [employer] [facility] 10-12-2023 Note Education Materials Urology Kidney [...] these instructions at home: Medicines ? Take mxjn-eda-buwkaub and prescription medicines only as told by [...] provider. Document Revised: 05/28/2022 Document Reviewed: 05/28/2022 Elsevier Patient Education ? 2022 [employer] [facility] 10-09-2023 Hospital Discharg e instructions Patient [...] Follow these instructions at home: Medicines Take crjw-dka-litseqn and prescription medicines only as told by [...] provider. Document Revised: 08/20/2022 Document Reviewed: 05/28/2022 [employer] Patient Education 2022 [employer] 10/09/2023 14:26:16 Lithotripsy Lithotripsy Lithotripsy is a [...] including vitamins, herbs, eye drops, creams, and avhw-sgf-buylrzk medicines. Any problems you or family members [...] provider tells you to take them. Taking czak-ysy-fklhfqr medicines, vitamins, herbs, and supplements. Tests You [...] provider. Document Revised: 08/20/2022 Document Reviewed: 05/28/2022 [employer] Patient Education 2022 [employer] [facility] 04/03/2023 13:24:26 With:ANDREI WEEKS, Julio Woods, URL Address: [facility] [address], [place] [address]- When: Unknown [facility] 09-09-2023 Note [id number] 09-07-2023 Note Education Materials Dentistry Dental [...] and teeth. This keeps them healthy. ? Applegate your teeth 2 times a day. Use [...] prevented? ? To prevent dental caries: ? Applegate your teeth every morning and night. Use [...] provider. Document Revised: 09/09/2020 Document Reviewed: 09/09/2020 [employer] Patient Education ? 2022 [employer] [facility] 06-27-2023 Procedure note [facility] 04-04-2023 Procedure note [facility] 04-03-2023 Hospital Discharg e instructions [...] include: ?8 oz (237 mL) of milk, cvoviqm-ikmrjywlknpn-gjbsm milk, and calcium-fortifiedfruit juice. Calcium-fortified means that [...] ?Spinach (cooked), rhubarb, beets, sweet potatoes, and Swazi chard. ?Peanuts. ?Potato chips, turkish fries, and baked potatoes with skin on. ?Nuts and nut products. ?Chocolate. If you regularly take a diuretic medicine, make sure to eat at least 1 or 2 servings of fruits or vegetables that are high in potassium each day. These include: ?Avocado. ?Banana. ?Jeff Davis, prune, carrot, or tomato juice. ?Baked potato. [...] magnesium, fish oil, or vitamin B6. Take surq-nqz-wdbohjs and prescription medicines only as told by [...] Casseroles. Pizza. Lasagna. Frozen meals. Potato chips. Moldovan fries. The items listed above may not [...] provider. Document Revised: 06/04/2022 Document Reviewed: 06/04/2022 [employer] Patient Education 2022 [employer] [facility] 03/28/2022 11:42:39 With:ANDREI WEEKS, Julio Woods, URL Address: [facility] [address], [place] [address]- When: Unknown [facility] 11-16-2022 Evaluation note Encounter Date Diagnosis Assessment [...] and tingle for hours after this injection. [employer] Other 11-02-2022 Evaluation note* Encounter Date Diagnosis [...] tolerated the injection well without adverse reaction. [employer] Other 02-01-2022 Evaluation note* Encounter Date Diagnosis Assessment Notes Treatment Notes Treatment Clinical Notes Nov, Dysphagia (ICD-10 - R13.10) [employer] Other 01-31-2022 Evaluation note* Encounter Date Diagnosis [...] as documented in the electronic medical record. [employer] Other Evaluation + Plan note Future Appointments Appointment Date:04/03/2023 01:00:00 PM Scheduled Provider:Julio FORBES MD Location:[facility] Appointment Type:URO Office Visit [facility] Evaluation + Plan note Future Appointments Appointment Date:04/03/2023 01:00:00 PM Scheduled Provider:Julio FORBES MD Location:[facility] Appointment Type:URO Office Visit Diagnostic Tests Pending * [facility] Future Appointments Appointment Date:10/09/2023 01:45:00 PM Scheduled Provider:Julio FORBES MD Location:[facility] Appointment Type:URO Office Visit [facility] Evaluation noteNo InformationNort [employer] Other evaluation noteNo assessment information available [facility] Work Phone: History and physical note Author Eliceo Dobson [facility] April 04, 2023 1:22pm Note Date/Time April 04, 2023 1:22 pm [facility] [address] [place] [address] Gastroenterology H&P Signed Patient: Daniele Perry MR#: [id number] : 1945 Acct:[id number] Age/Sex: 78 / M Adm Date: 3 Loc: Room: Type: [facility] Attending Dr: Eliceo Dobson MD Copies to: MD Amelia Powers NP-Mian~ Date of Service: 04/04/2023 HISTORY & PHYSICAL: [...] signed by Eliceo Dobson MD> 04/04/23 1322 [facility] Work Phone: History and physical note Author Eliceo Dobson [facility] June 27, 2023 1:00pm Note Date/Time June 27, 2023 1:00pm [facility] [address] [place] [address] Gastroenterology H&P Signed Patient: Daniele Perry MR#: [id number] : 1945 Acct:[id number] Age/Sex: 78 / M Adm Date: 3 Loc: Room: Type: [facility] Attending Dr: Eliceo Dobson MD Copies to: [...] signed by Eliceo Dobson MD> 06/27/23 1300 [facility] Work Phone: History general Narrative - Reported* Type Description Date Medical History constipation Medical History Vitamin D deficiency Medical History depression Medical History erectile dysfunction Medical History testosterone deficiency Surgical History arthroscopic knee surgery [employer] Other Hospital course Narrative No data available for this section [facility] Hospital Discharge instructions No data available for this section [facility] Hospital Discharge instructions Additional Instructions DISCHARGE [...] NOT operate machinery such as power tools, [employer] mowers, snow blowers, sewing machines, etc. for [...] problems. -Follow up with PCP. -Office number [phone]. [facility] Work Phone: Hospital Discharge instructions [...] problems. -Follow up with PCP. -Office number [phone]. [facility] Work Phone: Progress note No data available for this section [facility] Summary Purpose Family History No Family [...] section and content) DATE CREATED AUTHOR [facility]2019 [facility] DATE CREATED AUTHOR AUTHOR'S ORGANIZ ATION 04/23/2020 [facility] DATE CREATED AUTHOR AUTHOR'S ORGANIZ ATION 07/09/2023 [facility] DATE CREATED AUTHOR AUTHOR'S ORGANIZ ATION 10/27/2023 [facility] DATE CREATED AUTHOR AUTHOR'S ORGANIZ ATION 11/02/2023 [facility] DATE CREATED AUTHOR AUTHOR'S ORGANIZ ATION 11/06/2023 [facility] DATE CREATED AUTHOR AUTHOR'S ORGANIZ ATION 11/15/2023 [facility] REASON FOR VISIT (unrecogniz ed section and [...] BE BASED ON THE PRIMARY CLINICAL RECORDS. [facility]. provides no warranty or guarantee of the accuracy or completeness of information in this document.
[2023-11-21] MEDS: LACTATED RINGER'S SOLUTION 1,000 ML 50 ML IV ×2 (08:02→11:28)
[2023-11-21] MEDS: CIPROFLOXACIN IN 5 % DEXTROSE 400 MG/200 ML PIGGYBACK 200 MG IV (09:32)
--- NOTE | 2023-11-21 10:35 | P.URON_ITS ---
Urology Surgery Operative Note Operative Note Procedure Date: 11/21/23 Time Out Performed: yes Pre-op Diagnosis: Status post ureteroscopic stone surgery with stent placement Post-op Diagnosis: same as pre-op Procedures performed: 1. Cystoscopy. 2. Left stent removal. 3. Left retrograde pyelogram. 4. Left ureteroscopy. 5. Left pyeloscopy. Anesthesia: General-LMA Primary Surgeon: Lance Dc Complications: None Estimated blood loss (mL): 2 Findings: No stones and no extravasation. Specimens: None Drains: None Indications for Procedures: This gentleman had ureteroscopic stone manipulation and King scopic stone manipulation along with left stent placement several weeks ago. Postoperatively he developed a fluid collection medial to the kidney that required a percutaneous drain. He also had positive urine and blood cultures. The drain has been removed. He now presents for cystoscopy stent removal ureteroscopy and retrograde. He has signed an informed consent after risks were explained. Detailed description of Procedure: The patient was brought to the operating room and placed on the operating room table in the supine position. SCDs were placed on the lower extremities and turned on and functioning during the entire case. Timeout was done by all parties in the room. We all agreed upon the patient's identification and the planned procedures for this patient. Genn. anesthesia was then administered. The patient was then repositioned into the modified dorsal lithotomy position. All pressure points were satisfactorily padded. Genitalia were sterilely prepped and draped in usual fashion. I started by passing a 22 Yoruba Olympus cystoscope per urethra and into the bladder. The non encrusted stent was grasped with a flexible grasping forceps. The stent was then removed. The scope was passed back in the bladder. I then passed an 8 Yoruba cone-tip catheter and did a left retrograde pyelogram. This showed a normal ureter renal pelvis and kidney with no evidence of extravasation. I then passed a Glidewire through the scope and up the left ureter into the kidney. The scope was removed. I then passed a flexible ureteroscope over the wire and up the ureter. Ureter appeared normal. I then remove the wire. I ascended up the ureter and then did pyeloscopy. I went into each compartment of the kidney and found no evidence of any trauma, tumors or free stones. 1 Oscar's plaque was noted in the mid calyx. The ureteroscope was then removed. The cystoscope was passed back in the bladder and the bladder was drained of its contents and the scope was then removed. He was then transferred to a [facility] bed and wheeled to PACU in stable condition.
[2023-11-21] MEDS: IOHEXOL 240 MG/ML - 50 ML VIAL INJ (10:46)
== END 2023-11-21 12:16 | disposition home or self-care (01) ==
PROVIDERS: Visit Provider Urology
PROC: (CPT 52351; principal; 2023-11-21 08:40)
DX: N40.1 Benign prostatic hyperplasia with lower urinary tract symptoms (principal); Z46.6 Encounter for fitting and adjustment of urinary device; R31.9 Hematuria, unspecified; Z87.440 Personal history of urinary (tract) infections; E78.5 Hyperlipidemia, unspecified; Z87.442 Personal history of urinary calculi; G20.A1 Parkinson's disease without dyskinesia, without mention of fluctuations; K57.90 Diverticulosis of intestine, part unspecified, without perforation or abscess without bleeding; N52.9 Male erectile dysfunction, unspecified; Z79.82 Long term (current) use of aspirin; Z87.891 Personal history of nicotine dependence; E29.1 Testicular hypofunction
CPT/HCPCS: 52351; 74420; J0744; J2371; J2405; J2704; J3010; Q9966

== ENCOUNTER 2023-12-24 09:48 | Outpatient (OUT) | payer MEDICARE, SELFPAY ==
--- NOTE | 2023-12-24 10:30 | PM.PRESUREVA ---
History of Present Illness History of Present Illness Chief complaint: Right Kidney stone Narrative: Patient presents for preadmission testing. The patient states he had a Left ureteral stent placed Which was removed on November 21 and he has been feeling much better. He states he is now scheduled for lithotripsy on the right side. The patient states he has had difficulty starting the stream of urine but denies dysuria, hematuria, nausea, vomiting, or any other complaints. He states he underwent a workup for Parkinson's disease which has been ruled out but he does have an essential tremor for which he takes propranolol. Review of Systems ROS Narrative REVIEW OF SYSTEMS: Negative except as stated in HPI, ten or more systems reviewed. Constitutional: No fever , chills, weakness ENT: No sore throat or epistaxis Cardiovascular: No edema, chest pain, palpitations, or activity intolerance Respiratory: No shortness of breath, cough, or wheezing Musculoskeletal: No joint pain or swelling Gastrointestinal: No abdominal pain, constipation, diarrhea, or vomiting Genitourinary: No dysuria or hematuria Neurological: No numbness, tingling, weakness, or headache Psychiatric: No mood changes PFSH [facility] Medical History (Updated 12/24/23 @ 10:10 by Nirmala Robison NP) High cholesterol ?E78.00 - Pure hypercholesterolemia, unspecified (ICD-10) Peptic ulcer ?K27.9 - Peptic ulcer, site unspecified, unspecified as acute or chronic, without hemorrhage or perforation (ICD-10) 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 - Papillomavirus as the cause of diseases classified elsewhere (ICD-10) Skin cancer ?C44.90 - Unspecified malignant neoplasm of skin, unspecified (ICD-10) Essential tremor ?G25.0 - Essential tremor (ICD-10) 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 - Male erectile dysfunction, unspecified (ICD-10) History of nephrolithiasis ?Z87.442 - Personal history of urinary calculi (ICD-10) Hypogonadism Hyperlipidemia ?E78.5 - Hyperlipidemia, unspecified (ICD-10) Urinary tract infection ?N39.0 - Urinary tract infection, site not specified (ICD-10) Hematuria ?R31.9 - Hematuria, unspecified (ICD-10) Diverticular disease ?K57.90 - Diverticulosis of intestine, part unspecified, without perforation or abscess without bleeding (ICD-10) Benign prostatic hyperplasia ?N40.0 - Benign prostatic hyperplasia without lower urinary tract symptoms (ICD-10) Abdominal pain ?R10.9 - Unspecified abdominal pain (ICD-10) Ureteral stone ?N20.1 - Calculus of ureter (ICD-10) Surgical History (Updated 12/24/23 @ 09:57 by Nirmala Robison NP) H/O cystoscopy (10/17/23) ?Z98.890 - Other specified postprocedural states (ICD-10) H/O cystoscopy (11/21/23) ?Z98.890 - Other specified postprocedural states (ICD-10) H/O cystoscopy ?Z98.890 - Other specified postprocedural states (ICD-10) History of lithotripsy ?Z98.890 - Other specified postprocedural states (ICD-10) History of throat surgery ?Z98.890 - Other specified postprocedural states (ICD-10) History of surgical removal of skin lesion ?Z98.890 - Other specified postprocedural states (ICD-10) ?Z87.2 - Personal history of diseases of the skin and subcutaneous tissue (ICD-10) History of nasal septoplasty ?Z98.890 - Other specified postprocedural states (ICD-10) History of colonoscopy ?Z98.890 - Other specified postprocedural states (ICD-10) History of esophagogastroduodenoscopy (EGD) ?Z98.890 - Other specified postprocedural states (ICD-10) History of arthroplasty of knee ?Z96.659 - Presence of unspecified artificial knee joint (ICD-10) History of arthroplasty of knee ?Z96.659 - Presence of unspecified artificial knee joint (ICD-10) History of tonsillectomy and adenoidectomy ?Z90.89 - Acquired absence of other organs (ICD-10) H/O wisdom tooth extraction ?K08.409 - Partial loss of teeth, unspecified cause, unspecified class (ICD-10) Family History (Updated 10/15/23 @ 11:21 by Nirmala Robison NP) Other Family history of cancer Family history of coronary artery disease Heart disease Social History (Updated 10/17/23 @ 08:18 by Diane Mayers) Within the past year, how often did you have a drink containing alcohol: 2-4 times a month Smoking status: Former smoker Non-prescribed substance use: denies use Previous occupational history: RETIRED Highest level of school completed/degree received: Bachelor's degree Meds Home Medications and Allergies Home Medications ?Medication ?Instructions ?Recorded ?Confirmed ?Type Zetia 20 mg PO DAILY 10/14/23 12/24/23 History aspirin 81 mg capsule 81 mg PO DAILY 10/14/23 12/24/23 History eszopiclone 3 mg tablet (Lunesta) 3 mg PO QPM 10/14/23 12/24/23 History tamsulosin 0.4 mg capsule (Flomax) 0.4 mg PO BID 10/14/23 12/24/23 History alfuzosin 10 mg tablet,extended 10 mg PO DAILY 10/15/23 12/24/23 History release 24 hr gabapentin 300 mg capsule 300 mg PO DAILY 10/15/23 12/24/23 History propranolol 60 mg tablet 60 mg PO DAILY 10/15/23 12/24/23 History sildenafil 100 mg tablet 100 mg PO Q24H PRN sexual activity 10/15/23 12/24/23 History atorvastatin 20 mg tablet (Lipitor) 20 mg PO DAILY 10/28/23 12/24/23 History glucosamine sulfate 500 mg tablet 500 mg PO DAILY 10/28/23 12/24/23 History (Glucosamine) cholecalciferol (vitamin D3) 10 10 mcg PO DAILY 12/24/23 12/24/23 History mcg (400 unit) capsule fluticasone propionate 50 1 spray intranasal Q12H 12/24/23 12/24/23 History mcg/actuation nasal spray,suspension ipratropium bromide 21 mcg (0.03 2 spray intranasal QDAY 12/24/23 12/24/23 History %) nasal spray testosterone cypionate 200 mg/mL 200 mg IM .[id number] 12/24/23 12/24/23 History intramuscular oil Allergies Allergy/AdvReac Type Severity Reaction Status Date / Time shellfish derived Allergy Vomiting Verified 12/24/23 10:03 Exam Narrative Exam Narrative: Constitutional: Awake, alert, comfortable, well-appearing, nontoxic, interactive, vital signs as charted Head: Normocephalic, atraumatic Neck: Supple, normal appearance, normal range of motion, no meningeal signs, no lymphadenopathy Respiratory: No respiratory distress, breath sounds clear Cardiovascular: Regular rate and rhythm, strong and regular heart tones Abdomen: Nontender, normal bowel sounds, soft, no CVA tenderness Musculoskeletal: Antalgic gait, no swelling or edema Skin: No rashes or induration, no lesions, only visible skin inspected Neuro: upper extremity tremor noted, normal sensation Psychiatric: Oriented ?3, normal affect Assessment and Plan Assessment and Plan (1) Kidney stones: Plan Right ESWL scheduled with Dr. Dc 01/02/2024.
[2023-12-24 10:34] LABS: Basophils Absolute Auto 0.1 10^3/uL (0.0-0.1); Basophils Percent Auto 0.8 % (0.2-2.0); Eosinophils Absolute Auto 0.4 10^3/uL (0.0-0.7); Eosinophils Percent Auto 5.7 % (0.9-7.0); Hematocrit 49.3 % (42.0-54.0); Hemoglobin 15.3 g/dL (14.0-18.0); Immature Granulocytes Abs Auto 0.02 10^3/uL (0.00-0.03); Immature Granulocytes Pct Auto 0.3 % (0.0-0.5); Lymphocytes Absolute Auto 2.1 10^3/uL (1.2-3.8); Lymphocytes Percent Auto 33.7 % (20.5-60.0); Mean Corpuscular Hemoglobin 29.1 pg (25.9-34.0); Mean Corpuscular Volume 93.9 fL (80.0-94.0); Monocytes Absolute Auto 0.6 10^3/uL (0.3-0.8); Monocytes Percent Auto 9.3 % (1.7-12.0); Neutrophils Absolute Auto 3.1 10^3/uL (1.4-6.5); Neutrophils Percent Auto 50.2 % (43.0-75.0); Platelet Count 203 10^3/uL (150-450); Red Blood Count 5.25 10^6/uL (4.70-6.10); Red Cell Distribution Width 14.7 % (11.0-15.0); White Blood Count 6.1 10^3/uL (4.0-11.0)
[2023-12-24 10:51] LABS: Anion Gap 11.9; BUN Creatinine Ratio 13.9; Calcium 8.9 mg/dL (8.5-10.1); Carbon Dioxide 29.1 mmol/L (21.0-32.0); Chloride 106 mmol/L (98-107); Estimated GFR (African America >60 (>=60); Estimated GFR (Non-African Ame >60 (>=60); Glucose 92 mg/dL (74-106); Sodium 143 mmol/L (136-145)
[2023-12-24 10:53] LABS: INR 1.02; Partial Thromboplastin Time 29.6 sec (22.3-36.2); Prothrombin Time 10.8 sec (9.0-11.6)
== END 2023-12-24 09:49 | disposition home or self-care (01) ==
LOC: PST 09:49
PROVIDERS: Visit Provider Urology
DX: Z01.812 Encounter for preprocedural laboratory examination (principal); Z01.818 Encounter for other preprocedural examination; N20.0 Calculus of kidney
CPT/HCPCS: 80048; 85025; 85610; 85730; G0463

== ENCOUNTER 2024-01-02 07:50 | Day surgery (SDC) | payer MEDICARE, SELFPAY ==
[2023-12-24 10:19] VITALS: BP 100/67; PULSE 48; RESP 16; TEMP 36.2; O2SAT 98; BMI 21.8
[2024-01-02] VITALS (12 sets, daily range): BP systolic 102–141; BP diastolic 67–89; PULSE 69–94; RESP 10–21; TEMP 35.9–36.8; O2SAT 91–98; BMI 21.9
--- NOTE | 2024-01-02 08:00 | XR_ITS ---
[address] [address] Patient Name: DANIELE PERRY MRN: [id number] date: 1945 Sex: M Assigned Patient Location: [facility] Current Patient Location: [facility] Accession/Order Number: [id number] Exam Date: 01/02/2024 07:55 Report Date: 01/02/2024 08:21 At the request of: JULIO FORBES Procedure: XR abdomen 1V EXAMINATION: XR abdomen 1V HISTORY: kidney stones COMPARISON: No relevant comparison available. FINDINGS: KIDNEY/URETER - RIGHT: Punctate nephroliths measuring up to 5 mm KIDNEY/URETER - LEFT: No visible renal or ureteral calcifications. PELVIS: No visible ureteral calcifications. Any visible calcifications favor phleboliths. BOWEL: No abnormal dilation or deviation. BONES: No acute abnormality. Moderate to severe degenerative changes OTHER: Negative. No abnormal gaseous collections. XR/XR abdomen 1V IMPRESSION: Right nephrolithiasis Electronically authenticated by: NELA DOVE Date: 01/02/2024 08:21
[2024-01-02] MEDS: LACTATED RINGER'S SOLUTION 1,000 ML 50 ML IV ×2 (08:30→11:15)
[2024-01-02] MEDS: CEFAZOLIN SODIUM/DEXTROSE,ISO 1 GM/50 ML IV.SOLN IV (09:20)
--- NOTE | 2024-01-02 09:48 | PM.URSON ---
Urology Surgery Operative Note Operative Note Procedure Date: 01/02/24 Time Out Performed: yes Pre-op Diagnosis: Right nephrolithiasis Post-op Diagnosis: same as pre-op Procedures performed: 1. Right ESWL. Anesthesia: General-LMA Primary Surgeon: Lance Dc Complications: None Estimated blood loss (mL): 0 Findings: Lower pole stone Specimens: None Drains: None Indications for Procedures: This gentleman has a right renal calculus about 5 mm in size that is located of the lower pole. He now presents for right ESWL. He has signed an informed consent after all risks were explained. Some of these include bleeding, perinephric hematoma, infection and anesthesia to name a few. Detailed description of Procedure: The patient was brought to the Operating Room and placed on Siemens electromagnetic lithotripsy treatment table in the supine position. SCDs were placed on their lower extremities and turned on and functioning during the entire case. Timeout was done by all parties in the room. We all agreed upon the patient's identification and the planned procedures for this patient. General Anesthesia was then administered via LMA. Treatment head was then brought to the patient's correct side. While using flourscopy the stone was identified and lined up into the crosshairs. We then began applying shocks. We started at power level 2.0 and increased to a maximum power level of 3.5. Intermittent fluoroscopy showed that the stone quickly and steadily fragmented. We applied a total of 1500 shocks and our last fluoroscopic image revealed no evidence of stone remaining. The procedure was then terminated. He was then transferred to a [facility] bed and wheeled to PACU in stable condition.
== END 2024-01-02 12:19 | disposition home or self-care (01) ==
PROVIDERS: Visit Provider Urology
PROC: (CPT 50590; principal; 2024-01-02 09:20)
DX: N20.0 Calculus of kidney (principal); K57.90 Diverticulosis of intestine, part unspecified, without perforation or abscess without bleeding; R31.9 Hematuria, unspecified; E29.1 Testicular hypofunction; Z79.82 Long term (current) use of aspirin; E78.00 Pure hypercholesterolemia, unspecified; Z85.828 Personal history of other malignant neoplasm of skin; Z87.440 Personal history of urinary (tract) infections; Z96.659 Presence of unspecified artificial knee joint; Z87.891 Personal history of nicotine dependence; N40.1 Benign prostatic hyperplasia with lower urinary tract symptoms; R35.0 Frequency of micturition; R35.1 Nocturia; R25.1 Tremor, unspecified; N52.9 Male erectile dysfunction, unspecified
CPT/HCPCS: 50590; 36415; 74018; J1094; J2704